=== PATIENT | male | born 1965 | race Caucasian/White ===

== ENCOUNTER 2017-11-06 20:26 | Observation (INO) | payer MEDICARE, SELFPAY ==
[2017-11-06] VITALS (7 sets, daily range): BP systolic 83–114; BP diastolic 51–94; PULSE 84–108; RESP 14–18; TEMP 36.6–36.7; O2SAT 93–98; BMI 31.6; BMI 31.1; BMI 31.2
--- NOTE | 2017-11-06 20:31 | EKG12_ITS ---
Test Reason : CP Blood Pressure : / mmHG Vent. Rate : 083 BPM Atrial Rate : 083 BPM P-R Int : 168 ms QRS Dur : 092 ms QT Int : 388 ms P-R-T Axes : 054 115 090 degrees QTc Int : 455 ms Normal sinus rhythm Normal ECG When compared with ECG of 09-AUG-2017 05:41, No significant change was found Confirmed by MAXINE LAWSON ([id number]), photograph editor WILLEM IGNACIO ([id number]) on 11/11/2017 3:03:57 PM Referred By: MICHI Confirmed By:MAXINE LAWSON
--- NOTE | 2017-11-06 20:33 | RAD_ITS ---
STUDY: X-RAY CHEST REASON FOR EXAM: Male, 52 years old. Chest pain and shortness of breath. TECHNIQUE: Single AP portable view of the chest. COMPARISON: August 07, 2017. FINDINGS: Cardiac monitoring leads are present. The lungs are expanded. There is mild interstitial thickening present in both lungs. There is no demonstrated pleural abnormality. Normal size heart. Normal mediastinum and sang. There is prominence of the pulmonary hilar arteries without peripheral pulmonary vascular congestion. There is atherosclerotic calcification of the aortic arch with tortuosity. There are diffuse degenerative changes of the visualized thoracic spine. Normal visualized ribs, clavicles, and shoulders. There is no demonstrated abnormality of the visualized soft tissue structures of the upper abdomen. RAD/Chest 1 View (Portable) IMPRESSION: No radiographic evidence of acute cardiopulmonary disease. Electronically Signed: Jessica Cosme MD at 21:04 EDT , Service support ,
[2017-11-06 20:39] LABS: Absolute Lymphocyte Count 1.96 X10^3/ul (0.83-4.51); Absolute Neutrophil Count 5.1 X10^3/uL (2.0-7.7); Basophil# 0.04 X10^3/uL; Basophil% 0.5 % (0-1); Eosinophil# 0.12 X10^3/uL; Eosinophils% 1.5 % (0-5); Hematocrit 45.8 % (40-54); Hemoglobin 16.5 g/dl (13.0-16.5); Lymphocyte # 1.96 X10^3/ul (4.0); Lymphocyte % 24.8 % (19-41); Mean Corpuscular Volume 86.1 fL (80-94); Mean Platelet Vol. 11.6 fl (6.2-12.0); Monocyte% 8.9 % (0-10); Neutrophil # 5.07 X10^3/uL (2.7-7.7); Neutrophil % 64.2 % (47-70); Platelet Count 179 K/mm3 (150-450); RBC Distribution Width CV 13.1 % (11.6-14.6); RBC Distribution Width SD 40.8 fl (35.1-43.9); Red Blood Count 5.32 M/mm3 (4.6-6.2); White Blood Count 7.9 K/mm3 (4.4-11.0)
[2017-11-06 20:40] LABS: POSITIVE COUNT NO; POSITIVE DIFFERENTIAL NO; POSITIVE MORPHOLOGY NO
--- NOTE | 2017-11-06 21:05 | ED.RN ---
DR AQUINO NOTIFIED OF CRITICAL GLUCOSE [id number]
[2017-11-06 21:06] LABS: Anion Gap 14 (5-15); BUN 12 mg/dL (7-18); BUN/Creat Ratio 8.5 RATIO (10-20); Calcium,Total 8.5 mg/dL (8.5-10.1); Chloride 98 mmol/L (98-107); Creatinine, Serum 1.42 mg/dL (0.70-1.30); EST Glomerular Filtration Rate 56 mL/min (>60); Est Glom Filt Rate - Afr Amer 67 mL/min (>60); Estimated Creatinine Clearance 66.79 ml/min; Glucose 510 mg/dL (74-106); Potassium 3.7 mmol/L (3.5-5.1); Sodium Level 133 mmol/L (136-145)
[2017-11-06] MEDS: Aspirin 81 MG TAB.CHEW 324 MG PO (21:10)
[2017-11-06] MEDS: Ondansetron 4 MG/2 ML Vial IV (21:10)
[2017-11-06 21:18] LABS: D-Dimer Quantitative (DVT/PE) 0.43 FEU/ug/m (0.27-0.49)
[2017-11-06] MEDS: 0.9% Normal Saline 1,000 ML 999 ML IV (22:20)
--- NOTE | 2017-11-06 22:23 | ED.DCSUM_ITS ---
- ER Visit Summary Date of Service: 11/06/17 Chief Complaint: Chest pain History of Present Illness: The patient is a 52 M presenting with chest pain. He states this started yesterday. He has intermittent episodes of midsternal chest pain with no radiation. He states it was worse when he walked up a hill today. He has nausea vomiting and diarrhea as well. He complains of shortness of breath. He has had a cough. He has had subjective fever. He has a history of hypertension, diabetes, hypercholesteremia, early history of family heart disease, previous smoker. He has 7 stents. He denies PE/DVT risk factors. Physical Examination: Vitals are stable. Patient is afebrile. Alert no acute distress. HEENT exam is unremarkable. Neck is supple. Lungs are clear and equal bilaterally. Heart is regular rate and rhythm. Abdomen is soft nontender nondistended. Extremities are unremarkable. Skin is warm and dry. No focal neurologic deficit. Remainder of exam is unremarkable. Emergency Department Course and Treatment: Patient was given aspirin, morphine on arrival. EKG is sinus tachycardia rate of 105. CBC is normal. Chemistries show sodium 133, creatinine 1.42, glucose 516. He is given IV fluids and insulin subcu. Troponin was negative. D-dimer is normal. Rapid flu was sent and is pending. Chest x-ray shows no acute process. Due to his chest pain which feels typical of his heart pain, discussed with the hospitalist for observation. Disposition: Observation Impression: Chest pain This note was generated with [employer] dictation software. It may contain incorrect words, spelling, and punctuation that were not noted in review of the chart prior to signing ED Disposition - Plan for ED Patient: Chief Complaint: Chest Pain Referrals: Trang He MD [Primary Care Provider] -
--- NOTE | 2017-11-06 22:37 | PCM.HP.STD ---
Problem List (1) Obesity (BMI 30.0-34.9) Status: Chronic (2) Myocardial infarct, old Status: Chronic (3) S/P PTCA (percutaneous transluminal coronary angioplasty) Status: Chronic (4) Chest pain Status: Acute Qualifiers: Chest pain type: unspecified Qualified Code(s): R07.9 - Chest pain, unspecified (5) CAD (coronary artery disease) Status: Chronic Qualifiers: Coronary Disease-Associated Artery/Lesion type: unspecified vessel or lesion type [place] vs. 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 insulin use: without long lines operator use Diabetes mellitus complication status: with unspecified complications Qualified Code(s): E11.8 - Type 2 diabetes mellitus with unspecified complications (8) HLD (hyperlipidemia) Status: Chronic Qualifiers: Hyperlipidemia type: unspecified (9) HTN (hypertension) Status: Chronic Qualifiers: Hypertension type: essential hypertension History of Present Illness Date of Admission: 11/06/17 Chief Complaint: N/V/D, CP The patient is a 52 y/o M w/ PMHx: Obesity, CAD s/p [place] w/ PCI, Tobacco use, Diabetes mellitus type II, HTN, HLD who presents to the [facility] ED on 11/06/17 with history of ongoing nausea, emesis, loose stools x 24 hours, mildly productive cough (although ongoing for several months) with subjective fever and chills and now onset substernal chest pressure with associated R hand discomfort intermittently over the last 24 hours with associated dyspnea without diaphoresis, noted to worsen with increased activity, specifically while walking up the hill to the ED. He does admit to non-compliance with his diet and since recent illness has been drinking normal gatorade. He notes usually drinking regular sweet tea. In the ED work-up included T 97.9, HR 107-->90, BP 96/51-->100/66, RR 14, 98% on RA, unremarkable CBC, d-dimer 0.43, BMP w/ Na 133, BUN/Cr 12/1.42 (baseline 0.7), glucose 510, trop < 0.02. Past Medical History Past Medical History (Chronic Problems): Chronic Problems Obesity (BMI 30.0-34.9) (Chronic) Myocardial infarct, old (Chronic) S/P PTCA (percutaneous transluminal coronary angioplasty) (Chronic) S/P PTCA (percutaneous transluminal coronary angioplasty) (Chronic) CAD (coronary artery disease) (Chronic) Tobacco abuse (Chronic) CAD (coronary artery disease) (Chronic) Diabetes (Chronic) HLD (hyperlipidemia) (Chronic) HTN (hypertension) (Chronic) Allergies No Known Allergies Allergy (Verified 11/06/17 20:28) Home Medications: Ambulatory Orders Medication Instructions Recorded Aspirin [Aspirin, Baby] 81 mg PO DAILY 06/11/16 Atorvastatin Calcium [Lipitor] 80 mg PO QHS 06/11/16 Clopidogrel Bisulfate [Plavix] 75 mg PO DAILY 06/11/16 Lisinopril [Zestril] 10 mg PO DAILY 06/11/16 Metformin HCl [Metformin HCl ER] 500 mg PO BID 06/11/16 Nitroglycerin 0.4 mg SL PRN PRN 07/04/16 Bupropion HCl [Bupropion Xl] 300 mg PO DAILY 11/09/16 Carvedilol [Coreg (Beta Leon)] 6.25 mg PO BID 02/08/17 Pantoprazole Sodium [Protonix] 40 mg PO DAILY 03/18/17 Surgical History: angioplasty, - - LUE surgery, PCI, T+A. Psychiatric History: No pertinent psych hx Lives: Alone Smoking Status: Former smoker - Quit 05/20/17, 30 year history at least prior. Tobacco Use: Non-smoker Alcohol: None Drugs: None - *Family History Maternal History Items: Diabetes, - Paternal History Items: Diabetes, High Cholesterol, Heart Disease - CAD s/p [place] in his 50s., Hypertension, - - diabetes, heart disease Sibling History Items: Heart Disease - Brother w/ CAD/LA in his 50s, fatal. Review of Systems Constitutional: Reports: Anorexia, Chills, Fever, Malaise, Weakness, Fatigue. Denies: Weight Change HEENT: Denies: Head Aches, Sinus Congestion, Sinus Drainage Cardiovascular: Reports: Chest Pain, Chest Pressure. Denies: Palpitations Respiratory: Reports: Cough, Shortness of Breath, Shortness of breath upon exertion, Sputum production. Denies: Shortness of breath at rest Gastrointestinal: Reports: Diarrhea, Nausea, Vomiting. Denies: Abdominal Pain Genitourinary: Denies: Dysuria Musculoskeletal: Denies: Joint Pain, Joint Tenderness Skin: Denies: Rash, Wounds Neurological: Denies: Numbness, Tingling, Focal weakness Psychiatric: Denies: Anxiety, Depression, Homicidal Ideations, Suicidal Ideations Hematologic/ Lymphatic: Denies: Easy Bruising, Easy Bleeding VTE Information - Inpt Only VTE Present on Admission: No VTE Mechan Device Prophylaxis: SCD's VTE Pharm Prophylaxis ordered?: Yes Subjective: Seated upright in the ED bed, fatigued appearance, BP currently SBP 88. Objective: Physical Examination: General: awake, alert, oriented x 3 and cooperative, seated upright in the ED bed, notes still some discomfort, asking for pain regimen. Skin: normal color, turgor, no icterus, cyanosis, BL LE dry, suspect chronic venous stasis. HEENT: AT/NC, EOMI, PERRLA, dry MM, no carotid bruits or JVD noted. Lungs: CTA bilaterally, moderate effort, moderate decrease BL bases, no rales, ronchi or wheezing. Heart: Regular rate and rhythm; no gallop, rub audible, reproducible chest discomfort w/ palpation. Abdomen: soft, obese, NTTP, ND, normal BS, no HSM. Extremities: no cyanosis, clubbing, BL LE dry, suspect chronic venous stasis. Neurological: patient awake, alert, oriented x 3; cognitive function intact; pupils equally reactive to light and accomodation; cranial nerves II-XII grossly normal, moving all 4 extremities, no focal deficits, strength moderately globally decreased. Psychiatric: affect appears fatigued, no acute evidence of depressive or anxiety feelings. - Physical Exam Vital Signs Temp Pulse Resp BP Pulse Ox 97.9 F 108 H 14 114/94 H 97 11/06/17 20:29 11/06/17 20:29 11/06/17 20:29 11/06/17 20:29 11/06/17 20:35 Oxygen Flow Rate (L/min) 2 Oxygen Delivery Method Nasal Cannula Weight: 233 lb 0.458 oz Body Mass Index (BMI) 31.6 Laboratory Tests Past 24 Hrs 11/06/17 11/06/17 11/06/17 20:30 20:30 20:30 WBC 7.9 RBC 5.32 Hgb 16.5 Hct 45.8 MCV 86.1 MCH 31.0 MCHC 36.0 RDW 13.1 RDW Differential 40.8 Plt Count 179 MPV 11.6 Immature Gran % (Auto) 0.100 Neut % (Auto) 64.2 Lymph % (Auto) 24.8 [place] % (Auto) 8.9 Eos % (Auto) 1.5 Baso % (Auto) 0.5 Absolute Neuts (auto) 5.1 Absolute Lymphs (auto) 1.96 Total Counted Not Reportable D-Dimer Quant (PE/DVT) 0.43 Sodium 133 L Potassium 3.7 Chloride 98 Carbon Dioxide 21.0 Anion Gap 14 BUN 12 Creatinine 1.42 H Estim Creat Clear Calc 66.79 Est GFR (MDRD) Af Amer 67 Est GFR (MDRD) Non-Af 56 L BUN/Creatinine Ratio 8.5 L Glucose 510 H* Calcium 8.5 Troponin I < 0.02 Assessment/Plan The patient is a 52 y/o M w/ PMHx: Obesity, CAD s/p [place] w/ PCI, Tobacco use, Diabetes mellitus type II, HTN, HLD who presents to the [facility] ED on 11/06/17 with history of ongoing nausea, emesis, loose stools x 24 hours, mildly productive cough (although ongoing for several months) with subjective fever and chills and now onset substernal chest pressure with associated R hand discomfort intermittently over the last 24 hours with associated dyspnea without diaphoresis, noted to worsen with increased activity, specifically while walking up the hill to the ED. (1) N/V/D, ? Viral Gastroenteritis: Will admit to PCU given concurrent chest pain, continue aggressive hydration especially given hypotension, will obtain c diff, stool cx with repeat AM CBC. Will not start antibiotics at this time given unclear source pending stool studies as may be viral gastroenteritis. Anti-emetics, pain regimen PRN. Clears with ADAT. Respiratory viral panel pending. (2) Chest Pain, Atypical: EKG in ED ST without acute findings, CXR w/ without acute process, initial trop normal. Will place on a monitored bed to assure no acute myocardial infarction with serial cardiac enzymes and EKGs. Recent stress testing 07/2017 unremarkable. Possible related to recent #1, pending re-assessment in AM may consider Cardiology evaluation, atypical and reproducible discomfort w/ chest palpation. ASA, NG, morphine. FLP in AM. Mag pending. (3) Acute kidney injury: Secondary to GI losses, #1. Admission BUN/Cr 12/1.42 although BUN not markedly elevated, prior baseline creatinine noted to be 0.7. Will hydrate, hold nephrotoxic medications and repeat chemistry in AM. If no improvement would plan FeNa and renal US assessment. (4) Diabetes mellitus type II, Uncontrolled: Elevated glucose upon presentation, 510, noted poor diet compliance. Hold oral home regimen, HgBA1c pending, clears and ADAT to ADA diet, accu checks w/ ISS. Nutrition consulted, pending. (5) CAD: s/p PCI, [place], following w/ Dr. Johnson. Will continue home regimen asa, plavix statin, BB with hold parameters. (6) Hypertension: BP low in the ED, ÁLVARO as noted, holding ACEI, continue BB as able to with BP parameters, PRN hydralazine. (7) Hyperlipidemia: Continue home statin regimen. AM FLP. (8) Obesity: Weight loss and lifestyle changes encouraged. (9) Former Tobacco use, ? COPD: Notes vague dyspnea complaints ongoing, chronic cough ongoing, will add PRN albuterol, ATC duonebs, encouraged continued tobacco cessation. (10) GERD: Famotidine. (11) DVT Prophylaxis: SCDs, heparin. Code Visit OBSV E&M: [id number] Initial observation care L3
--- NOTE | 2017-11-06 22:53 | HP.PCM_ITS ---
Problem List (1) Obesity (BMI 30.0-34.9) Status: Chronic (2) Myocardial infarct, old Status: Chronic (3) S/P PTCA (percutaneous transluminal coronary angioplasty) Status: Chronic (4) Chest pain Status: Acute Qualifiers: Chest pain type: unspecified Qualified Code(s): R07.9 - Chest pain, unspecified (5) CAD (coronary artery disease) Status: Chronic Qualifiers: Coronary Disease-Associated Artery/Lesion type: unspecified vessel or lesion type [place] vs. 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: without marine oil terminal superintendent use Diabetes mellitus complication status: with unspecified complications Qualified Code(s): E11.8 - Type 2 diabetes mellitus with unspecified complications (8) HLD (hyperlipidemia) Status: Chronic Qualifiers: Hyperlipidemia type: unspecified (9) HTN (hypertension) Status: Chronic Qualifiers: Hypertension type: essential hypertension History of Present Illness Date of Admission: 11/06/17 Chief Complaint: N/V/D, CP The patient is a 52 y/o M w/ PMHx: Obesity, CAD s/p [place] w/ PCI, Tobacco use, Diabetes mellitus type II, HTN, HLD who presents to the [facility] ED on 11/06/17 with history of ongoing nausea, emesis, loose stools x 24 hours, mildly productive cough (although ongoing for several months) with subjective fever and chills and now onset substernal chest pressure with associated R hand discomfort intermittently over the last 24 hours with associated dyspnea without diaphoresis, noted to worsen with increased activity, specifically while walking up the hill to the ED. He does admit to non-compliance with his diet and since recent illness has been drinking normal gatorade. He notes usually drinking regular sweet tea. In the ED work-up included T 97.9, HR 107-->90, BP 96/51-->100/66, RR 14, 98% on RA, unremarkable CBC, d-dimer 0.43, BMP w/ Na 133 , BUN/Cr 12/1.42 (baseline 0.7), glucose 510, trop < 0.02. Past Medical History Past Medical History (Chronic Problems): Chronic Problems Obesity (BMI 30.0-34.9) (Chronic) Myocardial infarct, old (Chronic) S/P PTCA (percutaneous transluminal coronary angioplasty) (Chronic) S/P PTCA (percutaneous transluminal coronary angioplasty) (Chronic) CAD (coronary artery disease) (Chronic) Tobacco abuse (Chronic) CAD (coronary artery disease) (Chronic) Diabetes (Chronic) HLD (hyperlipidemia) (Chronic) HTN (hypertension) (Chronic) Allergies No Known Allergies Allergy (Verified 11/06/17 20:28) Home Medications: Ambulatory Orders Medication Instructions Recorded Aspirin [Aspirin, Baby] 81 mg PO DAILY 06/11/16 Atorvastatin Calcium [Lipitor] 80 mg PO QHS 06/11/16 Clopidogrel Bisulfate [Plavix] 75 mg PO DAILY 06/11/16 Lisinopril [Zestril] 10 mg PO DAILY 06/11/16 Metformin HCl [Metformin HCl ER] 500 mg PO BID 06/11/16 Nitroglycerin 0.4 mg SL PRN PRN 07/04/16 Bupropion HCl [Bupropion Xl] 300 mg PO DAILY 11/09/16 Carvedilol [Coreg (Beta Leon)] 6.25 mg PO BID 02/08/17 Pantoprazole Sodium [Protonix] 40 mg PO DAILY 03/18/17 Surgical History: angioplasty, - - LUE surgery, PCI, T+A. Psychiatric History: No pertinent psych hx Lives: Alone Smoking Status: Former smoker - Quit 05/20/17, 30 year history at least prior. Tobacco Use: Non-smoker Alcohol: None Drugs: None - *Family History Maternal History Items: Diabetes, - Paternal History Items: Diabetes, High Cholesterol, Heart Disease - CAD s/p [place] in his 50s., Hypertension, - - diabetes, heart disease Sibling History Items: Heart Disease - Brother w/ CAD/[place] in his 50s, fatal. Review of Systems Constitutional: Reports: Anorexia, Chills, Fever, Malaise, Weakness, Fatigue. Denies: Weight Change HEENT: Denies: Head Aches, Sinus Congestion, Sinus Drainage Cardiovascular: Reports: Chest Pain, Chest Pressure. Denies: Palpitations Respiratory: Reports: Cough, Shortness of Breath, Shortness of breath upon exertion, Sputum production. Denies: Shortness of breath at rest Gastrointestinal: Reports: Diarrhea, Nausea, Vomiting. Denies: Abdominal Pain Genitourinary: Denies: Dysuria Musculoskeletal: Denies: Joint Pain, Joint Tenderness Skin: Denies: Rash, Wounds Neurological: Denies: Numbness, Tingling, Focal weakness Psychiatric: Denies: Anxiety, Depression, Homicidal Ideations, Suicidal Ideations Hematologic/ Lymphatic: Denies: Easy Bruising, Easy Bleeding VTE Information - Inpt Only VTE Present on Admission: No VTE Mechan Device Prophylaxis: SCD's VTE Pharm Prophylaxis ordered?: Yes Subjective: Seated upright in the ED bed, fatigued appearance, BP currently SBP 88. Objective: Physical Examination: General: awake, alert, oriented x 3 and cooperative, seated upright in the ED bed, notes still some discomfort, asking for pain regimen. Skin: normal color, turgor, no icterus, cyanosis, BL LE dry, suspect chronic venous stasis. HEENT: AT/NC, EOMI, PERRLA, dry MM, no carotid bruits or JVD noted. Lungs: CTA bilaterally, moderate effort, moderate decrease BL bases, no rales, ronchi or wheezing. Heart: Regular rate and rhythm; no gallop, rub audible, reproducible chest discomfort w/ palpation. Abdomen: soft, obese, NTTP, ND, normal BS, no HSM. Extremities: no cyanosis, clubbing, BL LE dry, suspect chronic venous stasis. Neurological: patient awake, alert, oriented x 3; cognitive function intact; pupils equally reactive to light and accomodation; cranial nerves II-XII grossly normal, moving all 4 extremities, no focal deficits, strength moderately globally decreased. Psychiatric: affect appears fatigued, no acute evidence of depressive or anxiety feelings. - Physical Exam Vital Signs Temp Pulse Resp BP Pulse Ox 97.9 F 108 H 14 114/94 H 97 11/06/17 20:29 11/06/17 20:29 11/06/17 20:29 11/06/17 20:29 11/06/17 20:35 Oxygen Flow Rate (L/min) 2 Oxygen Delivery Method Nasal Cannula Weight: 233 lb 0.458 oz Body Mass Index (BMI) 31.6 Laboratory Tests Past 24 Hrs 11/06/17 11/06/17 11/06/17 20:30 20:30 20:30 WBC 7.9 RBC 5.32 Hgb 16.5 Hct 45.8 MCV 86.1 MCH 31.0 MCHC 36.0 RDW 13.1 RDW Differential 40.8 Plt Count 179 MPV 11.6 Immature Gran % (Auto) 0.100 Neut % (Auto) 64.2 Lymph % (Auto) 24.8 [place] % (Auto) 8.9 Eos % (Auto) 1.5 Baso % (Auto) 0.5 Absolute Neuts (auto) 5.1 Absolute Lymphs (auto) 1.96 Total Counted Not Reportable D-Dimer Quant (PE/DVT) 0.43 Sodium 133 L Potassium 3.7 Chloride 98 Carbon Dioxide 21.0 Anion Gap 14 BUN 12 Creatinine 1.42 H Estim Creat Clear Calc 66.79 Est GFR (MDRD) Af Amer 67 Est GFR (MDRD) Non-Af 56 L BUN/Creatinine Ratio 8.5 L Glucose 510 H* Calcium 8.5 Troponin I < 0.02 Assessment/Plan The patient is a 52 y/o M w/ PMHx: Obesity, CAD s/p [place] w/ PCI, Tobacco use, Diabetes mellitus type II, HTN, HLD who presents to the [facility] ED on 11/06/17 with history of ongoing nausea, emesis, loose stools x 24 hours, mildly productive cough (although ongoing for several months) with subjective fever and chills and now onset substernal chest pressure with associated R hand discomfort intermittently over the last 24 hours with associated dyspnea without diaphoresis, noted to worsen with increased activity, specifically while walking up the hill to the ED. (1) N/V/D, ? Viral Gastroenteritis: Will admit to PCU given concurrent chest pain, continue aggressive hydration especially given hypotension, will obtain c diff, stool cx with repeat AM CBC. Will not start antibiotics at this time given unclear source pending stool studies as may be viral gastroenteritis. Anti -emetics, pain regimen PRN. Clears with ADAT. Respiratory viral panel pending. (2) Chest Pain, Atypical: EKG in ED ST without acute findings, CXR w/ without acute process, initial trop normal. Will place on a monitored bed to assure no acute myocardial infarction with serial cardiac enzymes and EKGs. Recent stress testing 07/2017 unremarkable. Possible related to recent #1, pending re- assessment in AM may consider Cardiology evaluation, atypical and reproducible discomfort w/ chest palpation. ASA, NG, morphine. FLP in AM. Mag pending. (3) Acute kidney injury: Secondary to GI losses, #1. Admission BUN/Cr 12/1.42 although BUN not markedly elevated, prior baseline creatinine noted to be 0.7. Will hydrate, hold nephrotoxic medications and repeat chemistry in AM. If no improvement would plan FeNa and renal US assessment. (4) Diabetes mellitus type II, Uncontrolled: Elevated glucose upon presentation , 510, noted poor diet compliance. Hold oral home regimen, HgBA1c pending, clears and ADAT to ADA diet, accu checks w/ ISS. Nutrition consulted, pending. (5) CAD: s/p PCI, [place], following w/ Dr. Johnson. Will continue home regimen asa, plavix statin, BB with hold parameters. (6) Hypertension: BP low in the ED, ÁLVARO as noted, holding ACEI, continue BB as able to with BP parameters, PRN hydralazine. (7) Hyperlipidemia: Continue home statin regimen. AM FLP. (8) Obesity: Weight loss and lifestyle changes encouraged. (9) Former Tobacco use, ? COPD: Notes vague dyspnea complaints ongoing, chronic cough ongoing, will add PRN albuterol, ATC duonebs, encouraged continued tobacco cessation. (10) GERD: Famotidine. (11) DVT Prophylaxis: SCDs, heparin. Code Visit OBSV E&M: [id number] Initial observation care L3
[2017-11-07] VITALS (13 sets, daily range): BP systolic 92–154; BP diastolic 51–92; PULSE 75–92; RESP 16–18; TEMP 36.6–36.9; O2SAT 94–97
[2017-11-07 00:03] LABS: Magnesium 1.8 mg/dL (1.6-2.6); Phosphorus 3.8 mg/dL (2.5-4.9)
[2017-11-07] MEDS: HYDROcodone Bitartrate/Apap 5/325 Tablet PO ×3 (00:29→17:20)
[2017-11-07] MEDS: 0.9% Normal Saline 1,000 ML 999 ML IV ×2 (00:29→05:15)
[2017-11-07 00:30] LABS: Hemoglobin A1c 12.4 % (4.2-6.3)
[2017-11-07] MEDS: guaiFENesin 1,200 MG Tablet 1200 MG PO ×2 (01:08→22:50)
--- NOTE | 2017-11-07 01:16 | EKG12_ITS ---
Test Reason : Blood Pressure : / mmHG Vent. Rate : 105 BPM Atrial Rate : 105 BPM P-R Int : 154 ms QRS Dur : 086 ms QT Int : 360 ms P-R-T Axes : 067 116 081 degrees QTc Int : 475 ms Sinus tachycardia Otherwise normal ECG Confirmed by EDUARDO GIBSON, DEVYN ([id number]), photography editor WILLEM IGNACIO ([id number]) on 11/09/2017 3:09:25 PM Referred By: MITCHELL Confirmed By:DEVYN CLARK MD
[2017-11-07] MEDS: 0.9% Normal Saline 1,000 ML 125 ML IV (01:24)
[2017-11-07 05:30] LABS: Hematocrit 39.3 % (40-54); Hemoglobin 13.7 g/dl (13.0-16.5); Mean Corp Hgb Conc 34.9 g/gl (32-36); Mean Corpuscular Hgb 30.4 pg (27.0-32.0); Mean Corpuscular Volume 87.3 fL (80-94); Mean Platelet Vol. 11.5 fl (6.2-12.0); Platelet Count 143 K/mm3 (150-450); RBC Distribution Width CV 13.1 % (11.6-14.6); RBC Distribution Width SD 40.7 fl (35.1-43.9); White Blood Count 5.4 K/mm3 (4.4-11.0)
[2017-11-07 05:33] LABS: Scan Indicated on CBC? Y/N NO
[2017-11-07 05:42] LABS: Anion Gap 8 (5-15); BUN 13 mg/dL (7-18); Calcium,Total 7.3 mg/dL (8.5-10.1); Chloride 105 mmol/L (98-107); Cholesterol 211 mg/dL (200); Creatinine, Serum 0.68 mg/dL (0.70-1.30); EST Glomerular Filtration Rate 129 mL/min (>60); Est Glom Filt Rate - Afr Amer 156 mL/min (>60); Estimated Creatinine Clearance 139.48 ml/min; Glucose 226 mg/dL (74-106); High Density Lipoprotein 25 mg/dL; Potassium 3.2 mmol/L (3.5-5.1); Sodium Level 137 mmol/L (136-145); Triglycerides 901 mg/dL
--- NOTE | 2017-11-07 05:55 | EKG12_ITS ---
Test Reason : AM EKG Blood Pressure : / mmHG Vent. Rate : 078 BPM Atrial Rate : 078 BPM P-R Int : 174 ms QRS Dur : 096 ms QT Int : 406 ms P-R-T Axes : 049 096 086 degrees QTc Int : 462 ms Normal sinus rhythm Low voltage QRS Borderline ECG When compared with ECG of 06-NOV-2017 23:47, MANUAL COMPARISON REQUIRED, DATA IS UNCONFIRMED Confirmed by MAXINE LAWSON ([id number]), newspaper editor WILLEM IGNACIO ([id number]) on 11/11/2017 3:07:04 PM Referred By: MICHI Confirmed By:MAXINE LAWSON
[2017-11-07 07:01] LABS: Bedside Glucose 237 mg/dL (70-110)
[2017-11-07] MEDS: Ipratropium/Albuterol Sulfate 3 ML AMPUL.NEB INHALATION ×2 (07:28→14:01)
[2017-11-07 07:55] LABS: Lipase 118 U/L (73-393)
[2017-11-07] MEDS: Aspirin 81 MG TAB.CHEW PO (08:37)
[2017-11-07] MEDS: Famotidine 20 MG Tablet PO ×2 (09:37→22:50)
[2017-11-07] MEDS: Pantoprazole Sodium 40 MG Tablet PO (09:37)
[2017-11-07] MEDS: Carvedilol 6.25 MG Tablet PO ×2 (09:37→22:50)
[2017-11-07] MEDS: buPROPion (XL) 300 MG TABLET.XL PO (09:37)
[2017-11-07] MEDS: Clopidogrel Bisulfate 75 MG Tablet PO (09:37)
--- NOTE | 2017-11-07 11:32 | PCM.PROGNOTE ---
Subjective: Patient seen and examined. Denies further chest pain. Denies further fever, chills. Continues to complain of shortness of breath, increased with exertion. Denies further nausea, vomiting, diarrhea. Denies other complaints. - Physical Exam General: Alert, Oriented x3, Cooperative, No apparent distress HEENT: Atraumatic, PERRLA, EOMI, Normocephalic Neck: Supple, No JVD, Negative Carotid Bruits Lungs: Clear to auscultation, Diminished Cardiovascular: Regular rate, Regular Rhythm, Normal S1, Normal S2, No murmurs Abdomen: Bowel Sounds Present, Soft, Non Tender, Non-Distended Extremities: No clubbing, No cyanosis, No edema, Capillary Refill Less than 3 Seconds Skin: No rashes, No breakdown Musculoskeletal: No Tenderness to Palpation of Joints or Extremities Neurological: Cranial nerves II-XII grossly intact, Neuro grossly intact Psych/Mental Status: Normal Affect, Appropriate Vital Signs Temp Pulse Resp BP Pulse Ox 98.4 F 83 16 128/92 H 96 11/07/17 09:35 11/07/17 09:35 11/07/17 09:35 11/07/17 09:35 11/07/17 09:35 Oxygen Flow Rate (L/min) 2 Oxygen Delivery Method Room Air Weight: 104.3 kg Body Mass Index (BMI) 31.1 Intake and Output for Last 24 Hours 11/05/17 11/06/17 11/07/17 23:59 23:59 23:59 Intake Total 2908 / 2908 Balance 2908 / 2908 Laboratory Tests Past 24 Hrs 11/07/17 11/07/17 11/07/17 00:33 04:55 04:55 WBC 5.4 RBC 4.50 L Hgb 13.7 Hct 39.3 L MCV 87.3 MCH 30.4 MCHC 34.9 RDW 13.1 RDW Differential 40.7 Plt Count 143 L MPV 11.5 Sodium 137 Potassium 3.2 L Chloride 105 Carbon Dioxide 24.0 Anion Gap 8 BUN 13 Creatinine 0.68 L Estim Creat Clear Calc 139.48 Est GFR (MDRD) Af Amer 156 Est GFR (MDRD) Non-Af 129 BUN/Creatinine Ratio 19.0 Glucose 226 H Calcium 7.3 L Troponin I < 0.02 Triglycerides 901 H Cholesterol 211 H LDL Cholesterol TNP VLDL Cholesterol TNP HDL Cholesterol 25 L Lipase 11/07/17 11/07/17 11/07/17 04:55 04:55 10:47 WBC RBC Hgb Hct MCV MCH MCHC RDW RDW Differential Plt Count MPV Sodium Potassium Chloride Carbon Dioxide Anion Gap BUN Creatinine Estim Creat Clear Calc Est GFR (MDRD) Af Amer Est GFR (MDRD) Non-Af BUN/Creatinine Ratio Glucose Calcium Troponin I < 0.02 < 0.02 Triglycerides Cholesterol LDL Cholesterol VLDL Cholesterol HDL Cholesterol Lipase 118 POC Glucose 11/07/17 06:53 POC Glucose 237 H Medical Necessity - Tobacco Use Smoking Status: Former smoker Tobacco Use: Non-smoker Assessment/Plan Patient is a 52-year-old male admitted 11/06/2017 due to nausea, vomiting, diarrhea, chest pain. He has a past medical history of CAD status post NV with PCI, tobacco dependence, poorly controlled type 2 diabetes mellitus, obesity, hypertension, hyperlipidemia. 1. Atypical chest pain-patient denies further chest pain. Chest x-ray unremarkable. Troponin negative. EKG without evidence of ischemia. Patient will undergo stress test tomorrow morning. Continue aspirin, Plavix, statin, beta-carisa. 2. Suspected viral gastroenteritis-improved. Patient denies further nausea, vomiting, diarrhea. Respiratory panel negative. Patient has not had further bowel movement for stool sample. Continue Zofran as needed for nausea. IV fluids discontinued. 3. Acute kidney injury-secondary to #2. Creatinine on admission 1.4. Improved to 0.68 with IV fluids. Patient is tolerating oral intake. IV fluids discontinued. 4. Poorly controlled type 2 diabetes mellitus-hemoglobin A1c 12.5%. Hold home oral regimen. Nutrition consulted. Accu-Cheks before meals at bedtime with sliding scale insulin. Patient is currently on metformin 500 mg twice daily at home. Anticipate he will need insulin regimen going forward. 5. CAD status post NV with PCI-continue aspirin, Plavix, statin, beta-carisa. Stress test pending as noted above. 6. Hyperlipidemia-continue statin. Triglycerides 901, cholesterol 211, HDL 25. Patient is on high-dose statin, atorvastatin 80 mg daily. Patient may need additional agent. 7. Tobacco dependence/marijuana use-encourage cessation. 8. Hypertension-stable, continue home regimen. 9. Obesity-encourage dietary and lifestyle modifications. 10. GERD- continue famotidine. DVT prophylaxis-heparin subcu, SCDs. This patient was seen by LUCY Guzman under the supervision of Dr. Mims.
[2017-11-07 12:06] LABS: Bedside Glucose 287 mg/dL (70-110)
[2017-11-07 16:41] LABS: Bedside Glucose 254 mg/dL (70-110)
[2017-11-07 22:41] LABS: Bedside Glucose 209 mg/dL (70-110)
[2017-11-07] MEDS: Atorvastatin Calcium 80 MG Tablet PO (22:51)
[2017-11-08] VITALS (17 sets, daily range): BP systolic 133–174; BP diastolic 65–106; PULSE 65–96; RESP 14–16; TEMP 36.7–36.8; O2SAT 94–97
[2017-11-08] MEDS: HYDROcodone Bitartrate/Apap 5/325 Tablet PO ×2 (00:10→10:52)
[2017-11-08] MEDS: Aspirin 81 MG TAB.CHEW PO (05:20)
[2017-11-08] MEDS: Clopidogrel Bisulfate 75 MG Tablet PO (05:20)
[2017-11-08 05:31] LABS: Hematocrit 41.8 % (40-54); Hemoglobin 15.1 g/dl (13.0-16.5); International Normalized Ratio 0.9; Mean Corp Hgb Conc 36.1 g/gl (32-36); Mean Corpuscular Hgb 31.2 pg (27.0-32.0); Mean Corpuscular Volume 86.4 fL (80-94); Mean Platelet Vol. 11.3 fl (6.2-12.0); Platelet Count 130 K/mm3 (150-450); Prothrombin Time (Protime)PT. 12.6 SECONDS (11.7-14.9); RBC Distribution Width CV 13.1 % (11.6-14.6); RBC Distribution Width SD 40.5 fl (35.1-43.9); Red Blood Count 4.84 M/mm3 (4.6-6.2); Scan Indicated on CBC? Y/N NO; White Blood Count 4.8 K/mm3 (4.4-11.0)
[2017-11-08 05:32] LABS: Partial Thromboplast Time 26.1 Seconds (24.1-36.2)
[2017-11-08 05:46] LABS: Anion Gap 9 (5-15); BUN 7 mg/dL (7-18); BUN/Creat Ratio 11.6 RATIO (10-20); Calcium,Total 8.1 mg/dL (8.5-10.1); Chloride 104 mmol/L (98-107); EST Glomerular Filtration Rate 150 mL/min (>60); Est Glom Filt Rate - Afr Amer 181 mL/min (>60); Estimated Creatinine Clearance 158.07 ml/min; Glucose 225 mg/dL (74-106); Potassium 3.7 mmol/L (3.5-5.1); Sodium Level 138 mmol/L (136-145)
--- NOTE | 2017-11-08 05:55 | EKG12_ITS ---
Test Reason : AM EKG Blood Pressure : / mmHG Vent. Rate : 085 BPM Atrial Rate : 085 BPM P-R Int : 158 ms QRS Dur : 088 ms QT Int : 372 ms P-R-T Axes : 033 103 079 degrees QTc Int : 442 ms Normal sinus rhythm Normal ECG When compared with ECG of 07-NOV-2017 06:03, MANUAL COMPARISON REQUIRED, DATA IS UNCONFIRMED Confirmed by AMXINE LAWSON ([id number]), fashion editor WILLEM IGNACIO ([id number]) on 11/11/2017 3:08:35 PM Referred By: DR BARLOW Confirmed By:MAXINE LAWSON
[2017-11-08 07:00] LABS: Bedside Glucose 243 mg/dL (70-110)
--- NOTE | 2017-11-08 07:26 | PCM.CONS.C ---
Reason for Consult Date of Consultation: 11/08/17 Reason for Consultation: Chest pain and need for stress testing History of Present Illness: The patient is a 52 year old M with a previous history of coronary artery disease hyperlipidemia hypertension diabetes mellitus medication noncompliance and tobacco abuse. He presented to the emergency room complaining of nausea and emesis diarrhea shortness of breath and chest discomfort. This is his second admission in 2 months. He was admitted to the telemetry care unit has been doing better this morning denies any chest pain and was scheduled to have a stress test. Cardiology was asked to evaluate because of his repeat stress testing. He underwent stress testing in August 2016, October 2016, July 2017 all of which did not demonstrate any obstructive coronary disease. He had undergone in September 2016 and left heart catheterization which demonstrated an ejection fraction of 45%, left main coronary artery which was normal, LAD with 60% stenosis, second diagonal branch was small with 80% stenosis, the circumflex artery was a large nondominant with first obtuse marginal branch with 60% stenosis, and the second OM with an in-stent stenotic lesion of 95% stenosis. The right coronary artery was dominant with a proximal and distal stent reportedly widely open. There was a mid 60% stenosis. He underwent cutting balloon angioplasty of the circumflex artery OM 2 in-stent stenosis. He has had spotty follow-up with his steel loader Dr. Herbert Greco. At this time he denies any neck arm or jaw discomfort suggest angina. [] Past Medical History Allergies/Adverse Reactions: Allergies No Known Allergies Allergy (Verified 11/06/17 20:28) Home Medications: Ambulatory Orders Medication Instructions Recorded Aspirin [Aspirin, Baby] 81 mg PO DAILY 06/11/16 Atorvastatin Calcium [Lipitor] 80 mg PO QHS 06/11/16 Clopidogrel Bisulfate [Plavix] 75 mg PO DAILY 06/11/16 Lisinopril [Zestril] 10 mg PO DAILY 06/11/16 Metformin HCl [Metformin HCl ER] 500 mg PO BID 06/11/16 Nitroglycerin 0.4 mg SL PRN PRN 07/04/16 Bupropion HCl [Bupropion Xl] 300 mg PO DAILY 11/09/16 Carvedilol [Coreg (Beta Leon)] 6.25 mg PO BID 02/08/17 Pantoprazole Sodium [Protonix] 40 mg PO DAILY 03/18/17 Past Medical History (Chronic Problems): Chronic Problems Obesity (BMI 30.0-34.9) (Chronic) Myocardial infarct, old (Chronic) S/P PTCA (percutaneous transluminal coronary angioplasty) (Chronic) S/P PTCA (percutaneous transluminal coronary angioplasty) (Chronic) CAD (coronary artery disease) (Chronic) Tobacco abuse (Chronic) CAD (coronary artery disease) (Chronic) Diabetes (Chronic) HLD (hyperlipidemia) (Chronic) HTN (hypertension) (Chronic) Surgical History: angioplasty, - - LUE surgery, PCI, T+A. Psychiatric History: No pertinent psych hx - *Family History Sibling History Items: Heart Disease - Brother w/ CAD/ME in his 50s, fatal. Maternal History Items: Diabetes, - Paternal History Items: Diabetes, High Cholesterol, Heart Disease - CAD s/p ME in his 50s., Hypertension, - - diabetes, heart disease Lives: Alone Smoking Status: Former smoker Tobacco Use: Non-smoker Alcohol: None Drugs: None Review of Systems - Review of Systems General: Reports: Fatigue. Denies: Fever, Night Sweats Cardiovascular: Reports: Chest Discomfort. Denies: Shortness of Breath, Orthopnea, PND, Peripheral Edema, Palpitations, Lightheadedness, Dizziness, Near Syncope, Syncope Respiratory: Denies: Cough, Sputum Production, Hemoptysis Gastrointestinal: Reports: Nausea, Emesis, Diarrhea. Denies: Hematemesis, Hematochezia, Melena Genitourinary: Denies: Dysuria, Hematuria Skin: Denies: Rash Subjectve: Patient seen and evaluated. Objective: Vital Signs Temp Pulse Resp BP Pulse Ox 98.2 F 86 16 145/65 H 97 11/08/17 02:42 11/08/17 03:00 11/08/17 02:42 11/08/17 02:42 11/08/17 02:42 Oxygen Flow Rate (L/min) 2 Oxygen Delivery Method Room Air Weight: 229 lb 15.074 oz Body Mass Index (BMI) 31.1 Intake and Output for Last 24 Hours 11/06/17 11/07/17 11/08/17 23:59 23:59 23:59 Intake Total 4 / 5194 1892 Balance 5194 / 5194 1892 General: Awake, Alert, Oriented x 3 HEENT: PERRL, EOMI, Sclera Non Icteric Neck: Supple, Good ROM, No Lymph Node Enlargement Lungs: Clear to auscultation Cardiovascular: Regular Rhythm, Normal S1, Normal S2, No Murmurs, No Rubs, No Gallops Vascular: No Carotid Bruits, Normal Femoral Pulses, Normal Radial Pulses, Normal Dorsalis Pedal Pulse, Normal Posterior Tibial Pulses Abdomen: Bowel Sounds Present, Soft, Non Tender, No HSM, No Organomegaly Extremities: No Cyanosis, No Clubbing, No edema Neurological: No Focal Motor or Sensory Deficit 11/07/17 10:47: Troponin I < 0.02 11/08/17 05:05: Sodium 138, Potassium 3.7, Chloride 104, Carbon Dioxide 25.0, Anion Gap 9, BUN 7, Creatinine 0.60 L, Est GFR (MDRD) Af Amer 181, Est GFR (MDRD) Non-Af 150, BUN/Creatinine Ratio 11.6, Glucose 225 H, Calcium 8.1 L 11/08/17 05:05: WBC 4.8, RBC 4.84, Hgb 15.1, Hct 41.8, MCV 86.4, MCH 31.2, MCHC 36.1 H, RDW 13.1, RDW Differential 40.5, Plt Count 130 L, MPV 11.3 11/08/17 05:05: PT 12.6, INR 0.9, APTT 26.1 Rhythm: EKG: Normal sinus rhythm with no acute changes. Assessment/Plan 1. Chest pain. This gentleman presents with recurrent chest pain and has undergone repeated stress testing which have not demonstrated any evidence of ischemia. My recommendation at this time with his chest pain is that as it appears to be atypical I do not think that a fourth stress test in a year is warranted. I will therefore suggest that he either be treated with medical therapy or undergo a repeat cardiac catheterization. If no significant obstructive lesion is found or a lesion that can be intervened on then he can be discharged and follow-up as an outpatient. Addendum The catheterization today demonstrated the following: Left main coronary artery noted to be normal. Left anterior descending artery with mild luminal irregularities. First septal entry engineer with moderate disease in the small vessel. First bifurcating diagonal vessel which is small with moderately severe disease Codominant left circumflex artery with mid segment 50% stenosis. First obtuse marginal branch with no high-grade stenosis. Previously placed stent in the mid circumflex artery with no significant stenosis. Codominant right coronary artery with previously placed stent with mild in-stent stenosis Reduced ejection fraction of 45%. Based on the above angiographic findings the patient will be managed with medical therapy. We will attempt to put him on once a day medication to improve compliance. He can be discharged later today. 2. Hypertension He will continue with aggressive antihypertensive therapy with his medications adjusted as appropriate. 3.Hyperlipidemia He will continue with aggressive risk factor modification. It appears from previous notes that he has been less than appropriately compliant with his medical therapy. This needs to be emphasized to him about the importance of following up with a medical establishment appropriately.
--- NOTE | 2017-11-08 07:37 | CON.PCM_ITS ---
Reason for Consult Date of Consultation: 11/08/17 Reason for Consultation: Chest pain and need for stress testing History of Present Illness: The patient is a 52 year old M with a previous history of coronary artery disease hyperlipidemia hypertension diabetes mellitus medication noncompliance and tobacco abuse. He presented to the emergency room complaining of nausea and emesis diarrhea shortness of breath and chest discomfort. This is his second admission in 2 months. He was admitted to the telemetry care unit has been doing better this morning denies any chest pain and was scheduled to have a stress test. Cardiology was asked to evaluate because of his repeat stress testing. He underwent stress testing in August 2016, October 2016, July 2017 all of which did not demonstrate any obstructive coronary disease. He had undergone in September 2016 and left heart catheterization which demonstrated an ejection fraction of 45%, left main coronary artery which was normal, LAD with 60% stenosis, second diagonal branch was small with 80% stenosis, the circumflex artery was a large nondominant with first obtuse marginal branch with 60% stenosis, and the second OM with an in-stent stenotic lesion of 95% stenosis. The right coronary artery was dominant with a proximal and distal stent reportedly widely open. There was a mid 60% stenosis. He underwent cutting balloon angioplasty of the circumflex artery OM 2 in-stent stenosis. He has had spotty follow-up with his corporate real estate manager Dr. Herbert Greco. At this time he denies any neck arm or jaw discomfort suggest angina. [] Past Medical History Allergies/Adverse Reactions: Allergies No Known Allergies Allergy (Verified 11/06/17 20:28) Home Medications: Ambulatory Orders Medication Instructions Recorded Aspirin [Aspirin, Baby] 81 mg PO DAILY 06/11/16 Atorvastatin Calcium [Lipitor] 80 mg PO QHS 06/11/16 Clopidogrel Bisulfate [Plavix] 75 mg PO DAILY 06/11/16 Lisinopril [Zestril] 10 mg PO DAILY 06/11/16 Metformin HCl [Metformin HCl ER] 500 mg PO BID 06/11/16 Nitroglycerin 0.4 mg SL PRN PRN 07/04/16 Bupropion HCl [Bupropion Xl] 300 mg PO DAILY 11/09/16 Carvedilol [Coreg (Beta Leon)] 6.25 mg PO BID 02/08/17 Pantoprazole Sodium [Protonix] 40 mg PO DAILY 03/18/17 Past Medical History (Chronic Problems): Chronic Problems Obesity (BMI 30.0-34.9) (Chronic) Myocardial infarct, old (Chronic) S/P PTCA (percutaneous transluminal coronary angioplasty) (Chronic) S/P PTCA (percutaneous transluminal coronary angioplasty) (Chronic) CAD (coronary artery disease) (Chronic) Tobacco abuse (Chronic) CAD (coronary artery disease) (Chronic) Diabetes (Chronic) HLD (hyperlipidemia) (Chronic) HTN (hypertension) (Chronic) Surgical History: angioplasty, - - LUE surgery, PCI, T+A. Psychiatric History: No pertinent psych hx - *Family History Sibling History Items: Heart Disease - Brother w/ CAD/NV in his 50s, fatal. Maternal History Items: Diabetes, - Paternal History Items: Diabetes, High Cholesterol, Heart Disease - CAD s/p NV in his 50s., Hypertension, - - diabetes, heart disease Lives: Alone Smoking Status: Former smoker Tobacco Use: Non-smoker Alcohol: None Drugs: None Review of Systems - Review of Systems General: Reports: Fatigue. Denies: Fever, Night Sweats Cardiovascular: Reports: Chest Discomfort. Denies: Shortness of Breath, Orthopnea, PND, Peripheral Edema, Palpitations, Lightheadedness, Dizziness, Near Syncope, Syncope Respiratory: Denies: Cough, Sputum Production, Hemoptysis Gastrointestinal: Reports: Nausea, Emesis, Diarrhea. Denies: Hematemesis, Hematochezia, Melena Genitourinary: Denies: Dysuria, Hematuria Skin: Denies: Rash Subjectve: Patient seen and evaluated. Objective: Vital Signs Temp Pulse Resp BP Pulse Ox 98.2 F 86 16 145/65 H 97 11/08/17 02:42 11/08/17 03:00 11/08/17 02:42 11/08/17 02:42 11/08/17 02:42 Oxygen Flow Rate (L/min) 2 Oxygen Delivery Method Room Air Weight: 229 lb 15.074 oz Body Mass Index (BMI) 31.1 Intake and Output for Last 24 Hours 11/06/17 11/07/17 11/08/17 23:59 23:59 23:59 Intake Total 4 / 5194 1892 Balance 5194 / 5194 1892 General: Awake, Alert, Oriented x 3 HEENT: PERRL, EOMI, Sclera Non Icteric Neck: Supple, Good ROM, No Lymph Node Enlargement Lungs: Clear to auscultation Cardiovascular: Regular Rhythm, Normal S1, Normal S2, No Murmurs, No Rubs, No Gallops Vascular: No Carotid Bruits, Normal Femoral Pulses, Normal Radial Pulses, Normal Dorsalis Pedal Pulse, Normal Posterior Tibial Pulses Abdomen: Bowel Sounds Present, Soft, Non Tender, No HSM, No Organomegaly Extremities: No Cyanosis, No Clubbing, No edema Neurological: No Focal Motor or Sensory Deficit 11/07/17 10:47: Troponin I < 0.02 11/08/17 05:05: Sodium 138, Potassium 3.7, Chloride 104, Carbon Dioxide 25.0, Anion Gap 9, BUN 7, Creatinine 0.60 L, Est GFR (MDRD) Af Amer 181, Est GFR (MDRD ) Non-Af 150, BUN/Creatinine Ratio 11.6, Glucose 225 H, Calcium 8.1 L 11/08/17 05:05: WBC 4.8, RBC 4.84, Hgb 15.1, Hct 41.8, MCV 86.4, MCH 31.2, MCHC 36.1 H, RDW 13.1, RDW Differential 40.5, Plt Count 130 L, MPV 11.3 11/08/17 05:05: PT 12.6, INR 0.9, APTT 26.1 Rhythm: EKG: Normal sinus rhythm with no acute changes. Assessment/Plan 1. Chest pain. This gentleman presents with recurrent chest pain and has undergone repeated stress testing which have not demonstrated any evidence of ischemia. My recommendation at this time with his chest pain is that as it appears to be atypical I do not think that a fourth stress test in a year is warranted. I will therefore suggest that he either be treated with medical therapy or undergo a repeat cardiac catheterization. If no significant obstructive lesion is found or a lesion that can be intervened on then he can be discharged and follow-up as an outpatient. Addendum The catheterization today demonstrated the following: Left main coronary artery noted to be normal. Left anterior descending artery with mild luminal irregularities. First septal sheet metal smith with moderate disease in the small vessel. First bifurcating diagonal vessel which is small with moderately severe disease Codominant left circumflex artery with mid segment 50% stenosis. First obtuse marginal branch with no high-grade stenosis. Previously placed stent in the mid circumflex artery with no significant stenosis. Codominant right coronary artery with previously placed stent with mild in- stent stenosis Reduced ejection fraction of 45%. Based on the above angiographic findings the patient will be managed with medical therapy. We will attempt to put him on once a day medication to improve compliance. He can be discharged later today. 2. Hypertension He will continue with aggressive antihypertensive therapy with his medications adjusted as appropriate. 3.Hyperlipidemia He will continue with aggressive risk factor modification. It appears from previous notes that he has been less than appropriately compliant with his medical therapy. This needs to be emphasized to him about the importance of following up with a medical establishment appropriately.
[2017-11-08] MEDS: Carvedilol 6.25 MG Tablet PO (08:15)
[2017-11-08] MEDS: guaiFENesin 1,200 MG Tablet 1200 MG PO (08:15)
[2017-11-08] MEDS: buPROPion (XL) 300 MG TABLET.XL PO (08:16)
[2017-11-08] MEDS: Famotidine 20 MG Tablet PO (08:16)
[2017-11-08] MEDS: Pantoprazole Sodium 40 MG Tablet PO (08:16)
[2017-11-08] MEDS: Acetaminophen 325 MG Tablet 650 MG PO (08:17)
[2017-11-08] MEDS: 0.9% Normal Saline 1,000 ML 15 ML IV (08:25)
--- NOTE | 2017-11-08 09:36 | CL.D_ITS ---
Patient Name: RAND PIMENTEL Study Date: 11/08/2017 Performing: Yony Sigala MD Ht: 72.04 inches 183 cm : 1965 Wt: 229.28 lbs 104 kg Age: 52 Gender: male BSA: 2.26 PROCEDURE(S) PERFORMED UI83-XAP/COR/LV CLINICAL PROFILE AND INDICATIONS INDICATIONS: 52-year-old man with a history of chest pain and recurrent normal stress test. CONCLUSIONS Previously placed stent in the left circumflex artery as well as the right coronary artery patent. RECOMMENDATIONS Medical therapy DESCRIPTION OF PROCEDURE The patient arrived to the procedure lab. The risks and benefits of the procedure as well as a full d escription of our services here and current unavailability of surgical backup were fully explained to the patient and/or their significant other prior to the catheterization. The Timeout was completed, verifying the correct patient and procedure. The patient's procedural site was prepped and draped in the usual fashion. Local anesthetic was given subcutaneously to right groin region with Lidocaine 2%. Using a modified Seldinger technique, arterial access was obtained via the right femoral artery, a 5 Fr sheath was inserted. Left Coronary Artery selective angiography was performed in multiple views u sing a 5 Fr. JL4 catheter. Right Coronary Artery selective angiography was then performed in multiple views using a 5 Fr. 3DRC (Fadi) catheter. Left Ventriculography was performed in HARO projection using a 5 Fr. Pigtail catheter. LV to AO pullback pressures were then recorded.The arterial sheath wa s pulled and manual compression applied until hemostasis is achieved. CORONARY ANGIOGRAPHY DOMINANCE: Co- Dominant LEFT HEART ASSESSMENT Left Ventricular Ejection Fraction: by LV Gram 45 % Depressed Left Ventricular systolic function LEFT MAIN: Angiographically normal LEFT ANTERIOR DECENDING ARTERY: Mild luminal irregularities DIAGONAL 1: Proximal - Severe disease in a very small vessel SEPTAL: Moderate luminal irregularities up to 50% CIRCUMFLEX ARTERY: 50 % Stenosis MID CIRC: Previously placed stent is patent OM 2: Proximal - Mild luminal irregularities RIGHT CORONARY ARTERY: PROX RCA: Previously placed stent is patent COMPLICATIONS No Complications PROCEDURE MEDICATIONS Versed 1 mg IV Fentanyl 50 mcg IV Versed 1 mg IV Oxygen: 2 L/min via nasal cannula SUMMARY OF HEMODYNAMIC DATA Time AIR REST ECG 08:48:28 AO 175/121 (145) SA 09:10:07 LV 162/23, 26 09:16:57 LV 161/23, 27 09:17:04 LV 182/11, 33 09:17:59 LVp 187/9, 30 09:18:05 AOp 187/115 (146) 09:18:10 Signed By Yony Sigala MD On 11/08/2017 09:35:38 Yony Sigala MD
[2017-11-08] MEDS: Metoprolol(XL)Succ 50 MG Tablet PO (10:52)
[2017-11-08] MEDS: amLODIPine 10 MG Tablet PO (10:53)
[2017-11-08 11:30] LABS: Bedside Glucose 227 mg/dL (70-110)
--- NOTE | 2017-11-08 11:43 | DCINST_ITS ---
- Discharge Diagnoses Current Active Problems: Current Active and Chronic Problems Obesity (BMI 30.0-34.9) (Chronic) You will use the following diet at home:: Calorie/Carbohydrate Controlled ( specify 1200, 1400, etc) - 1800 lyndsey ADA Your food should be the consistency of: Regular Your liquids should be the consistency of: Regular/Thin Discharge Activity: Return to Normal Activity Weight Bearing Status: Full weight bearing Allergies/Adverse Reactions: Allergies No Known Allergies Allergy (Verified 11/06/17 20:28) Medications to take at Discharge Aspirin [Aspirin, Baby] 81 mg PO DAILY 06/11/16 Atorvastatin Calcium [Lipitor] 80 mg PO QHS 06/11/16 Clopidogrel Bisulfate [Plavix] 75 mg PO DAILY 06/11/16 Lisinopril [Zestril] 10 mg PO DAILY 06/11/16 Nitroglycerin 0.4 mg SL PRN PRN 07/04/16 Bupropion HCl [Bupropion Xl] 300 mg PO DAILY 11/09/16 Pantoprazole Sodium [Protonix] 40 mg PO DAILY 03/18/17 Amlodipine [Norvasc] 10 mg PO DAILY #30 tab 11/08/17 Metformin HCl [Metformin HCl ER] 500 mg PO BID #0 11/08/17 Metoprolol(XL)Succ [Toprol Xl (Beta Leon)] 50 mg PO DAILY #30 tab 11/08/17 The following prescriptions were given: Amlodipine [Norvasc] 10 mg PO DAILY #30 tab Metoprolol(XL)Succ [Toprol Xl (Beta Leon)] 50 mg PO DAILY #30 tab Primary Care Physician: Trang He MD [Primary Care Provider] - Please follow up with your Primary Care Physician in: in 1-2 weeks- you will need to be placed on addtional diabetic meds Please Follow Up With: Yony Sigala MD When: as directed
--- NOTE | 2017-11-08 11:57 | PCM.DC.SUM ---
Discharge Date and Diagnosis Date of Admission: 11/06/17 Date of Discharge: 11/08/17 - Primary Discharge Diagnosis 1. Atypical chest pain-ACS ruled out. 2. Suspected viral gastroenteritis 3. Acute kidney injury secondary to #2 4. Poorly controlled type 2 diabetes mellitus 5. Hyperlipidemia, elevated triglycerides-suspect noncompliance with medication regimen 6. CAD with history of AZ/PCI 7. Hypertension 8. Tobacco dependence/marijuana use 9. Obesity 10. GERD - Secondary Discharge Diagnosis Chronic Problems Obesity (BMI 30.0-34.9) (Chronic) Myocardial infarct, old (Chronic) S/P PTCA (percutaneous transluminal coronary angioplasty) (Chronic) S/P PTCA (percutaneous transluminal coronary angioplasty) (Chronic) CAD (coronary artery disease) (Chronic) Tobacco abuse (Chronic) CAD (coronary artery disease) (Chronic) Diabetes (Chronic) HLD (hyperlipidemia) (Chronic) HTN (hypertension) (Chronic) Hospital Course and Treatment Imaging Results: Diagnostic Data Chest X-Ray 11/06/17 20:33 IMPRESSION: No radiographic evidence of acute cardiopulmonary disease. Electronically Signed: Jessica Cosme MD at 21:04 EDT , Service support , Dr. Sigala-Cardiology Operations: None Procedures: Cardiac catheterization Summary of Care Provided: Patient is a 52-year-old male admitted 11/06/2017 due to nausea, vomiting, diarrhea, chest pain. He has a past medical history of CAD status post AZ with PCI, tobacco dependence, poorly controlled type 2 diabetes mellitus, obesity, hypertension, hyperlipidemia. 1. Atypical chest pain-ACS ruled out. Patient denies further chest pain. Chest x-ray unremarkable. Troponin negative. EKG without evidence of ischemia. Continue aspirin, Plavix, statin, beta-leon. Patient underwent cardiac catheterization 11/08/2017 which demonstrated LVEF 45%, mild luminal irregularities left anterior descending artery, diagonal 1 with proximal severe disease and a very small vessel, septal moderate luminal irregularities to 50%, circumflex artery 50%, mid circumflex previously placed stent is patent, OM 2 proximal mild luminal irregularities, right coronary artery proximal RCA previously placed stent is patent. Patient will continue outpatient follow-up with Dr. Sigala. 2. Suspected viral gastroenteritis-resolved. Patient denies further nausea, vomiting, diarrhea. Respiratory panel negative. Patient has not had further bowel movement for stool sample. Patient received IV fluids. 3. Acute kidney injury-secondary to #2. Creatinine on admission 1.4. Improved to 0.60 with IV fluids. 4. Poorly controlled type 2 diabetes mellitus-hemoglobin A1c 12.5%. Continue home metformin regimen at discharge. Patient will need further follow-up with primary care physician for additional diabetes medication and management. Patient has history of noncompliance with regimen. 5. CAD status post AZ with PCI-continue aspirin, Plavix, statin, beta-leon. Cardiac catheterization as noted above. 6. Hyperlipidemia-continue statin. Triglycerides 901, cholesterol 211, HDL 25. Patient is on high-dose statin, atorvastatin 80 mg daily. Patient may need additional agent, can discuss with PCP. 7. Tobacco dependence/marijuana use-encourage cessation. 8. Hypertension-amlodipine added to home regimen. 9. Obesity-encourage dietary and lifestyle modifications. 10. GERD- continue famotidine. General: Alert, Oriented x3, Cooperative, No apparent distress HEENT: Atraumatic, PERRLA, EOMI, Normocephalic Neck: Supple, No JVD, Negative Carotid Bruits Lungs: Clear to auscultation, Diminished Cardiovascular: Regular rate, Regular Rhythm, Normal S1, Normal S2, No murmurs Abdomen: Bowel Sounds Present, Soft, Non Tender, Non-Distended Extremities: No clubbing, No cyanosis, No edema, Capillary Refill Less than 3 Seconds Skin: No rashes, No breakdown Musculoskeletal: No Tenderness to Palpation of Joints or Extremities Neurological: Cranial nerves II-XII grossly intact, Neuro grossly intact Psych/Mental Status: Normal Affect, Appropriate Patient seen and examined prior to discharge. Physical assessment as noted above. Patient is stable for discharge home with recommendations as noted above. This patient was seen by LUCY Guzman under the supervision of Dr. Larson. Discharge Diet: Low fat/ Low Cholesterol, Carb Control Diet Discharge Activity: Return to Normal Activity Weight Bearing Status: Full weight bearing Call your doctor if your incision/area has: Continuous Slow Oozing, Sudden Increased Bleeding, Increased Pain/ Swelling, Increased Redness, Foul Smelling Discharge Call your doctor if you observe: Shortness of breath, Dizziness, Fainting spells, Chest pain, Increased palpitations (irregular heartbeat) Home Medications: Medications to take at Discharge Aspirin [Aspirin, Baby] 81 mg PO DAILY 06/11/16 Atorvastatin Calcium [Lipitor] 80 mg PO QHS 06/11/16 Clopidogrel Bisulfate [Plavix] 75 mg PO DAILY 06/11/16 Lisinopril [Zestril] 10 mg PO DAILY 06/11/16 Nitroglycerin 0.4 mg SL PRN PRN 07/04/16 Bupropion HCl [Bupropion Xl] 300 mg PO DAILY 11/09/16 Pantoprazole Sodium [Protonix] 40 mg PO DAILY 03/18/17 Amlodipine [Norvasc] 10 mg PO DAILY #30 tab 11/08/17 Metformin HCl [Metformin HCl ER] 500 mg PO BID #0 11/08/17 Metoprolol(XL)Succ [Toprol Xl (Beta Leon)] 50 mg PO DAILY #30 tab 11/08/17 Following Prescrptions Were Given to Patient: Amlodipine [Norvasc] 10 mg PO DAILY #30 tab Metoprolol(XL)Succ [Toprol Xl (Beta Leon)] 50 mg PO DAILY #30 tab Primary Care Physician: Trang He MD [Primary Care Provider] - Please follow up with your Primary Care Physician in: in 1-2 weeks- you will need to be placed on addtional diabetic meds Please Follow Up With: Yony Sigala MD When: as directed Disposition: Home Minutes spent on discharge:: 35 Patient Condition:: Stable Medical Necessity - Tobacco Use Smoking Status: Former smoker Tobacco Use: Non-smoker Meaningful Use Info Meaningful Use Diagnoses (Choose all that apply): None applicable
--- NOTE | 2017-11-08 12:10 | DS.PCM_ITS ---
Discharge Date and Diagnosis Date of Admission: 11/06/17 Date of Discharge: 11/08/17 - Primary Discharge Diagnosis 1. Atypical chest pain-ACS ruled out. 2. Suspected viral gastroenteritis 3. Acute kidney injury secondary to #2 4. Poorly controlled type 2 diabetes mellitus 5. Hyperlipidemia, elevated triglycerides-suspect noncompliance with medication regimen 6. CAD with history of [place]/PCI 7. Hypertension 8. Tobacco dependence/marijuana use 9. Obesity 10. GERD - Secondary Discharge Diagnosis Chronic Problems Obesity (BMI 30.0-34.9) (Chronic) Myocardial infarct, old (Chronic) S/P PTCA (percutaneous transluminal coronary angioplasty) (Chronic) S/P PTCA (percutaneous transluminal coronary angioplasty) (Chronic) CAD (coronary artery disease) (Chronic) Tobacco abuse (Chronic) CAD (coronary artery disease) (Chronic) Diabetes (Chronic) HLD (hyperlipidemia) (Chronic) HTN (hypertension) (Chronic) Hospital Course and Treatment Imaging Results: Diagnostic Data Chest X-Ray 11/06/17 20:33 IMPRESSION: No radiographic evidence of acute cardiopulmonary disease. Electronically Signed: Jessica Cosme MD at 21:04 EDT , Service support , Dr. Sigala-Cardiology Operations: None Procedures: Cardiac catheterization Summary of Care Provided: Patient is a 52-year-old male admitted 11/06/2017 due to nausea, vomiting, diarrhea, chest pain. He has a past medical history of CAD status post AR with PCI, tobacco dependence, poorly controlled type 2 diabetes mellitus, obesity, hypertension, hyperlipidemia. 1. Atypical chest pain-ACS ruled out. Patient denies further chest pain. Chest x-ray unremarkable. Troponin negative. EKG without evidence of ischemia. Continue aspirin, Plavix, statin, beta-leon. Patient underwent cardiac catheterization 11/08/2017 which demonstrated LVEF 45%, mild luminal irregularities left anterior descending artery, diagonal 1 with proximal severe disease and a very small vessel, septal moderate luminal irregularities to 50%, circumflex artery 50%, mid circumflex previously placed stent is patent, OM 2 proximal mild luminal irregularities, right coronary artery proximal RCA previously placed stent is patent. Patient will continue outpatient follow-up with Dr. Sigala. 2. Suspected viral gastroenteritis-resolved. Patient denies further nausea, vomiting, diarrhea. Respiratory panel negative. Patient has not had further bowel movement for stool sample. Patient received IV fluids. 3. Acute kidney injury-secondary to #2. Creatinine on admission 1.4. Improved to 0.60 with IV fluids. 4. Poorly controlled type 2 diabetes mellitus-hemoglobin A1c 12.5%. Continue home metformin regimen at discharge. Patient will need further follow-up with primary care physician for additional diabetes medication and management. Patient has history of noncompliance with regimen. 5. CAD status post AR with PCI-continue aspirin, Plavix, statin, beta-leon. Cardiac catheterization as noted above. 6. Hyperlipidemia-continue statin. Triglycerides 901, cholesterol 211, HDL 25. Patient is on high-dose statin, atorvastatin 80 mg daily. Patient may need additional agent, can discuss with PCP. 7. Tobacco dependence/marijuana use-encourage cessation. 8. Hypertension-amlodipine added to home regimen. 9. Obesity-encourage dietary and lifestyle modifications. 10. GERD- continue famotidine. General: Alert, Oriented x3, Cooperative, No apparent distress HEENT: Atraumatic, PERRLA, EOMI, Normocephalic Neck: Supple, No JVD, Negative Carotid Bruits Lungs: Clear to auscultation, Diminished Cardiovascular: Regular rate, Regular Rhythm, Normal S1, Normal S2, No murmurs Abdomen: Bowel Sounds Present, Soft, Non Tender, Non-Distended Extremities: No clubbing, No cyanosis, No edema, Capillary Refill Less than 3 Seconds Skin: No rashes, No breakdown Musculoskeletal: No Tenderness to Palpation of Joints or Extremities Neurological: Cranial nerves II-XII grossly intact, Neuro grossly intact Psych/Mental Status: Normal Affect, Appropriate Patient seen and examined prior to discharge. Physical assessment as noted above. Patient is stable for discharge home with recommendations as noted above. This patient was seen by LUCY Guzman under the supervision of Dr. Larson. Discharge Diet: Low fat/ Low Cholesterol, Carb Control Diet Discharge Activity: Return to Normal Activity Weight Bearing Status: Full weight bearing Call your doctor if your incision/area has: Continuous Slow Oozing, Sudden Increased Bleeding, Increased Pain/ Swelling, Increased Redness, Foul Smelling Discharge Call your doctor if you observe: Shortness of breath, Dizziness, Fainting spells , Chest pain, Increased palpitations (irregular heartbeat) Home Medications: Medications to take at Discharge Aspirin [Aspirin, Baby] 81 mg PO DAILY 06/11/16 Atorvastatin Calcium [Lipitor] 80 mg PO QHS 06/11/16 Clopidogrel Bisulfate [Plavix] 75 mg PO DAILY 06/11/16 Lisinopril [Zestril] 10 mg PO DAILY 06/11/16 Nitroglycerin 0.4 mg SL PRN PRN 07/04/16 Bupropion HCl [Bupropion Xl] 300 mg PO DAILY 11/09/16 Pantoprazole Sodium [Protonix] 40 mg PO DAILY 03/18/17 Amlodipine [Norvasc] 10 mg PO DAILY #30 tab 11/08/17 Metformin HCl [Metformin HCl ER] 500 mg PO BID #0 11/08/17 Metoprolol(XL)Succ [Toprol Xl (Beta Leon)] 50 mg PO DAILY #30 tab 11/08/17 Following Prescrptions Were Given to Patient: Amlodipine [Norvasc] 10 mg PO DAILY #30 tab Metoprolol(XL)Succ [Toprol Xl (Beta Leon)] 50 mg PO DAILY #30 tab Primary Care Physician: Trang He MD [Primary Care Provider] - Please follow up with your Primary Care Physician in: in 1-2 weeks- you will need to be placed on addtional diabetic meds Please Follow Up With: Yony Sigala MD When: as directed Disposition: Home Minutes spent on discharge:: 35 Patient Condition:: Stable Medical Necessity - Tobacco Use Smoking Status: Former smoker Tobacco Use: Non-smoker Meaningful Use Info Meaningful Use Diagnoses (Choose all that apply): None applicable
[2017-11-08] MEDS: 0.9% NaCl Peripheral Flush Adult/Peds IV (14:29)
== END 2017-11-08 11:43 | disposition home or self-care (01) ==
LOC: ED 20:57 → PCU 22:59
PROVIDERS: Internal Medicine; Nurse Practitioner Family; Admitting Provider Family Medicine; Emergency Provider Emergency Medicine; Family Provider Internal Medicine; PCP Internal Medicine; Visit Provider Internal Medicine
DX: R07.89 Other chest pain (principal); R06.02 Shortness of breath; I10 Essential (primary) hypertension; I25.10 Atherosclerotic heart disease of native coronary artery without angina pectoris; E66.9 Obesity, unspecified; N17.9 Acute kidney failure, unspecified; E11.65 Type 2 diabetes mellitus with hyperglycemia; I25.2 Old myocardial infarction; E78.5 Hyperlipidemia, unspecified; K21.9 Gastro-esophageal reflux disease without esophagitis; Z68.31 Body mass index [BMI] 31.0-31.9, adult; Z71.3 Dietary counseling and surveillance; Z79.899 Other long term (current) drug therapy; Z79.84 Long term (current) use of oral hypoglycemic drugs; Z79.02 Long term (current) use of antithrombotics/antiplatelets; Z79.82 Long term (current) use of aspirin; Z87.891 Personal history of nicotine dependence
CPT/HCPCS: 36415; 71045; 80048; 80061; 82962; 83036; 83690; 83735; 84100; 84484; 85025; 85027; 85379; 85610; 85730; 87493; 87506; 87633; 87804; 93005; 93458; 94640; 96361; 96372; 96374; 96375; 96376; 97802; 99152; 99153; 99218; 99285; J3010; J7030; A4216; C1769; G0378; J2405; Q9967

== ENCOUNTER 2018-01-08 22:04 | Observation (INO) | payer MEDICARE, SELFPAY ==
[2018-01-08 22:06] VITALS: BP 163/109; PULSE 97; RESP 13; TEMP 36.7; O2SAT 97; BMI 32.1
[2018-01-08 22:10] VITALS: BP 163/109; PULSE 98; RESP 17; O2SAT 97
--- NOTE | 2018-01-08 22:20 | EKG12_ITS ---
Test Reason : CHEST PAIN Blood Pressure : / mmHG Vent. Rate : 097 BPM Atrial Rate : 097 BPM P-R Int : 160 ms QRS Dur : 086 ms QT Int : 366 ms P-R-T Axes : 063 117 079 degrees QTc Int : 464 ms Normal sinus rhythm Normal ECG Confirmed by EDUARDO GIBSON, DEVYN ([id number]), manuscript editor WILLEM IGNACIO ([id number] on 01/10/2018 2:32:02 PM Referred By: LUIS Confirmed By:DEVYN CLARK MD
--- NOTE | 2018-01-08 22:20 | CT_ITS ---
STUDY: CT BRAIN WITHOUT CONTRAST REASON FOR EXAM: Male, 52 years old. Confusion RADIATION DOSAGE (If Supplied By Facility): CTDIvol = ( 44.99 ) mGy, DLP = ( 812.98 ) mGycm TECHNIQUE: Transaxial CT imaging of the brain was performed without administration of intravenous contrast material. Individualized dose optimization techniques were used for this CT. COMPARISON: June 18, 2016 FINDINGS: Normal soft tissue structures. Normal calvarium. Normal size ventricles and extra-axial spaces for the patient's age. Mild periventricular white matter disease. Encephalomalacia in the right frontal lobe which may be due to old infarct. Normal basal ganglia and thalami. Normal brainstem. Normal cerebellum. There is no intracranial hemorrhage. There are no findings of an acute ischemic infarction. Small mucous retention cyst in the left maxillary sinus. No significant change since prior study CT/Brain/Head without Contrast IMPRESSION: Findings which may be consistent with old frontal lobe infarct. Mild periventricular white matter ischemic changes. No evidence for acute bleed. If concern for acute infarct MRI recommended. Electronically Signed: Willis Hankins MD at 23:26 EDT , Service support ,
--- NOTE | 2018-01-08 22:20 | RAD_ITS ---
STUDY: X-RAY CHEST REASON FOR EXAM: Male, 52 years old. Syncope and SOB TECHNIQUE: Single frontal view of the chest. COMPARISON: 11/06/2017 FINDINGS: The lungs are clear and expanded. There is no demonstrated pleural abnormality. Normal size heart. Normal mediastinum and sang. Normal visualized pulmonary arteries. Normal visualized aortic arch and descending thoracic aorta. Normal visualized thoracic spine. Normal visualized ribs, clavicles, and shoulders. There is no demonstrated abnormality of the visualized soft tissue structures of the upper abdomen. RAD/Chest 1 View IMPRESSION: Normal x-ray examination of the chest. Electronically Signed: Deuce De León MD at 23:24 EDT Tel , Service support ,
--- NOTE | 2018-01-08 22:22 | ED.VISSUMM ---
- ER Visit Summary Date of Service: 01/08/18 Chief Complaint: Confusion History of Present Illness: The patient is a 52 M brought by EMS for transient confusion. The patient states he felt fine earlier today and has had no recent illness. He went over to a friend's and had just eaten a cheeseburger and had gone out to the porch. Bystanders then called EMS stating that he was confused and disoriented did not know where he was and could not answer simple questions. EMS reports that he was confused and unable to tell where he was on their arrival but that he regained normal level of consciousness during transport here to the emergency department. The patient states he last remembers walking up the porch and the next thing he knew he was in the ambulance. No history of prior similar symptoms. He also developed chest pain in the wound here to the hospital. He describes this as sharp located on the left side of the chest and rated a 6 out of 10 nonradiating. He feels a little short of breath and nauseated. He also complains of a headache although he attributes this to the nitroglycerin that was given by EMS. He does report headache usually when given nitroglycerin. He also notes that he had some left lower back pain yesterday but this has resolved and he is uncertain if it is related. He does have a history of prior stroke and coronary artery disease with multiple stents. Physical Examination: Afebrile vitals are stable NIH stroke scale is 1, patient reports decreased sensation to light touch of the left face and left hand. He has normal strength. No facial droop. Clear speech. Patient is alert and oriented ?3 No distress resting comfortably Moist mucous membranes Heart regular rate and rhythm Lungs are clear Abdomen soft nontender Extremities nontender Symmetric radial pulses Test Results: EKG shows normal sinus rhythm at a rate of 97 with no acute ischemic changes. Repeat EKG remains unchanged. CBC BMP notable for glucose 365 otherwise normal. INR normal. Troponin negative. Chest x-ray normal. CT of the head shows old frontal infarct mild periventricular white matter changes no acute bleed no acute process. CTA of the chest shows no acute findings no thoracic aortic dissection. Emergency Department Course and Treatment: Patient had received nitroglycerin and aspirin prior to arrival. He reported no relief and development of headache with nitroglycerin. He was given IV morphine here with improvement of symptoms. His laboratory studies are unremarkable. Given her neurological symptoms and chest pain this also raises concern for possible thoracic aortic dissection so CTA of the chest was obtained which is normal. Given the patient's transient confusion and left hand and facial paresthesias with prior stroke I do believe he needs further neurological workup as well likely to include MRI of the brain. Patient will be discussed with hospitalist and admitted. Treatment Plan: [] Disposition: Admit Impression: Transient confusion Chest pain Left hand and facial paresthesias This note was generated with [employer] dictation software. It may contain incorrect words, spelling, and punctuation that were not noted in review of the chart prior to signing ED Disposition - Plan for ED Patient: Chief Complaint: Alt LOC Referrals: Trang He MD [Primary Care Provider] -
[2018-01-08 22:25] VITALS: BP 160/101; PULSE 87; RESP 14; O2SAT 98
[2018-01-08] MEDS: Morphine 4 MG/ML Syringe IV (22:34)
[2018-01-08] MEDS: Ondansetron 4 MG/2 ML Vial IV (22:35)
[2018-01-08 22:37] LABS: Absolute Lymphocyte Count 2.93 X10^3/ul (0.83-4.51); Absolute Neutrophil Count 2.7 X10^3/uL (2.0-7.7); Basophil# 0.04 X10^3/uL; Basophil% 0.6 % (0-1); Eosinophil# 0.15 X10^3/uL; Eosinophils% 2.4 % (0-5); Hematocrit 43.3 % (40-54); Hemoglobin 15.2 g/dl (13.0-16.5); Lymphocyte # 2.93 X10^3/ul (4.0); Lymphocyte % 47.5 % (19-41); Mean Corp Hgb Conc 35.1 g/gl (32-36); Mean Corpuscular Hgb 30.6 pg (27.0-32.0); Mean Corpuscular Volume 87.3 fL (80-94); Mean Platelet Vol. 11.3 fl (6.2-12.0); Monocyte# 0.39 X10^3/uL; Monocyte% 6.3 % (0-10); Neutrophil # 2.66 X10^3/uL (2.7-7.7); Neutrophil % 43.2 % (47-70); Platelet Count 167 K/mm3 (150-450); RBC Distribution Width CV 13.1 % (11.6-14.6); RBC Distribution Width SD 41.6 fl (35.1-43.9); Red Blood Count 4.96 M/mm3 (4.6-6.2); White Blood Count 6.2 K/mm3 (4.4-11.0)
[2018-01-08 22:39] LABS: POSITIVE COUNT NO; POSITIVE DIFFERENTIAL NO; POSITIVE MORPHOLOGY NO
[2018-01-08 22:42] LABS: Prothrombin Time (Protime)PT. 12.9 SECONDS (11.7-14.9)
[2018-01-08 22:43] LABS: Partial Thromboplast Time 26.3 Seconds (24.1-36.2)
[2018-01-08 22:44] LABS: Anion Gap 8 (5-15); BUN 11 mg/dL (7-18); BUN/Creat Ratio 12.5 RATIO (10-20); Calcium,Total 9.1 mg/dL (8.5-10.1); Chloride 101 mmol/L (98-107); Creatinine, Serum 0.88 mg/dL (0.70-1.30); EST Glomerular Filtration Rate 97 mL/min (>60); Est Glom Filt Rate - Afr Amer 117 mL/min (>60); Estimated Creatinine Clearance 107.78 ml/min; Glucose 365 mg/dL (74-106); Potassium 3.6 mmol/L (3.5-5.1); Sodium Level 136 mmol/L (136-145)
[2018-01-08 22:55] VITALS: BP 120/102; PULSE 86; RESP 14; O2SAT 98
--- NOTE | 2018-01-08 23:05 | CT_ITS ---
STUDY: CTA CHEST REASON FOR EXAM: Male, 52 years old. Chest pain, evaluate for dissection RADIATION DOSAGE (If Supplied By Facility): CTDIvol = ( 15.09 ) mGy, DLP = ( 662.33 ) mGycm TECHNIQUE: The examination was performed with the intravenous administration of 100 ml of Isovue 300 contrast material. Post-processing of the angiographic images was performed, with multiplanar reformation and 3D reconstruction. Individualized dose optimization techniques were used for this CT. COMPARISON: 08/07/2017 FINDINGS: Normal enhancement of the main pulmonary artery and right and left pulmonary arteries. Normal enhancement of the bilateral peripheral pulmonary arteries. There is no demonstrated pulmonary embolism. Normal thoracic aorta and visualized great vessels. There is no demonstrated aortic dissection. Normal heart and pericardium. Normal mediastinum. Normal hilar regions. Normal visualized trachea and bronchi. The lungs are well expanded. Normal pulmonary parenchyma. Calcified pleural plaque on the left. Normal chest wall structures. Normal osseous structures. Normal visualized upper abdomen. CT/CTA Chest W/WO Contrast IMPRESSION: No evidence of thoracic aortic dissection. No acute pulmonary findings. Electronically Signed: Deuce De León MD at 0:57 EDT Tel , Service support ,
[2018-01-08 23:24] VITALS: BP 138/115; PULSE 81; RESP 18; O2SAT 96
--- NOTE | 2018-01-08 23:59 | EKG12_ITS ---
Test Reason : CP Blood Pressure : / mmHG Vent. Rate : 076 BPM Atrial Rate : 076 BPM P-R Int : 176 ms QRS Dur : 090 ms QT Int : 400 ms P-R-T Axes : 033 110 086 degrees QTc Int : 450 ms Normal sinus rhythm Normal ECG When compared with ECG of 08-NOV-2017 05:28, No significant change was found Confirmed by EDUARDO GIBSON, DEVYN ([id number]), research editor WILLEM IGNACIO ([id number]) on 01/11/2018 3:23:35 PM Referred By: MICHAEL Confirmed By:DEVYN CLARK MD
[2018-01-09] VITALS (15 sets, daily range): BP systolic 108–149; BP diastolic 67–100; PULSE 70–86; RESP 16–18; TEMP 36.4–36.8; O2SAT 94–98; BMI 31.3
[2018-01-09] MEDS: Morphine 4 MG/ML Syringe IV (00:07)
--- NOTE | 2018-01-09 02:12 | MRI_ITS ---
STUDY: MRI BRAIN WITHOUT CONTRAST REASON FOR EXAM: Male, 52 years old. Confusion and left-sided facial paresthesias TECHNIQUE: Standardized multiplanar fat and water weighted pulse sequences were obtained. COMPARISON: January 08, 2018 CT examination of the head FINDINGS: No evidence for shift of midline structures, mass effect or compression of ventricles noted. No acute intra or extra-axial hemorrhage is seen. No abnormal intracranial fluid collections identified. The basal cisterns are patent. Posterior fossa structures demonstrate no discrete mass. Encephalomalacia and gliosis in the right frontal lobe consistent with a chronic right frontal lobe infarct. Scattered foci of T2/FLAIR hyperintensity in the periventricular and subcortical white matter noted which are nonspecific in imaging appearance however likely related with chronic small vessel disease. Partial opacification of the right-sided mastoid air cells although nonspecific can be seen in the setting of mastoiditis. Mild mucosal thickening of the ethmoid air cells No discrete mass in the posterior fossa. No evidence for cerebellar tonsillar herniation. Visualized orbital contents appear unremarkable. IMPRESSION: No evidence for acute intracranial hemorrhage, mass effect or acute large territory infarcts. Chronic right frontal lobe infarct with encephalomalacia and gliosis. Mild chronic small vessel disease. Partial opacification of the right-sided mastoid air cells although nonspecific can be seen in the setting of mastoiditis. Mild mucosal thickening of the ethmoid air cells Electronically Signed: Anselmo Low, at 14:36 EDT Tel , Service support , MRI/Brain without Contrast
--- NOTE | 2018-01-09 02:12 | ECHOD_ITS ---
Reason For Study: TIA/CVA Procedure This was a 2D Doppler, Color Flow transthoracic echocardiogram. Exam performed portable in patient room. Left Ventricle Normal LV size. The estimated ejection fraction is 55 %. Left ventricular systolic function is normal. No evidence for diastolic dysfunction. No regional wall motion abnormalities noted. Right Ventricle Normal RV size. Normal systolic function. Atria Normal left atrium. Normal right atrium. Intact atrial septum. Mitral Valve Normal mitral valve. Tricuspid Valve Normal tricuspid valve. Unable to estimate RV systolic pressure due to inadequate jet, pulmonary artery pressure probably normal. Aortic Valve Trisinus/trileaflet aortic valve. Pulmonic Valve The pulmonic valve is not well visualized. Great Vessels Normal aortic root. The pulmonary artery is normal size. Normal inferior vena cava. Pericardium/Pleural No pericardial effusion. Medication Performed a rapid injection of agitated mix of 9 cc saline and 1cc air to assess for atrial septal defect. MMode/2D Measurements & Calculations LVIDd: 4.5 cm IVSd: 0.96 cm Ao root diam: 3.8 cm LVIDs: 3.8 cm LVPWd: 0.98 cm LA dimension: 3.7 cm RVDd: 3.5 cm FS: 15.3 % LAV(MOD-bp): 75.7 ml LVAd ap4: 35.6 cm2 SV(MOD-sp4): 59.1 ml LAV(MOD-bp) Indexed: 33.2 ml/m2 EDV(MOD-sp4): 113.6 ml LAV(MOD-sp2): 95.0 ml EDV(sp4-el): 117.0 ml LAV(MOD-sp4): 57.0 ml LVAs ap4: 22.1 cm2 ESV(MOD-sp4): 54.5 ml ESV(sp4-el): 54.5 ml EF(MOD-sp4): 52.0 % EF(sp4-el): 53.4 % SV(sp4-el): 62.5 ml LA A4 area: 19.4 cm2 RA A4 area: 15.9 cm2 Time Measurements MV dec time: 0.19 sec Doppler Measurements & Calculations MV E max kapil: 97.8 cm/sec Lat Peak E' Kapil: 9.9 cm/sec Med Peak E' Kapil: 8.4 cm/sec MV A max kapil: 88.3 cm/sec E/E' lat: 9.9 E/E' med: 11.7 MV E/A: 1.1 MV V2 max: 102.1 cm/sec MV P1/2t max kapil: 102.1 cm/sec Ao V2 max: 114.6 cm/sec MV max P.2 mmHg MV P1/2t: 94.3 msec Ao max P.3 mmHg MV V2 mean: 59.2 cm/sec MV dec slope: 317.0 cm/sec2 Ao V2 mean: 73.6 cm/sec MV mean P.7 mmHg MVA(P1/2t): 2.3 cm2 Ao mean P.5 mmHg MV V2 VTI: 32.7 cm Ao V2 VTI: 23.2 cm LV V1 max: 94.0 cm/sec PA V2 max: 93.4 cm/sec LV V1 max P.5 mmHg LV V1 mean P.7 mmHg LV V1 mean: 62.1 cm/sec LV V1 VTI: 19.4 cm Interpretation Summary Normal LV size. The estimated ejection fraction is 55 %. Left ventricular systolic function is normal. No evidence for diastolic dysfunction. Intact atrial septum Structurally normal valves. Ordering Physician: Stefano Hassan Referring Physician: ASCENCION LERMA Performed By: Orlando Mcgovern RCS
--- NOTE | 2018-01-09 02:12 | CDU_ITS ---
Reason For Study: TIA Rt. Velocities/BP Lt. Velocities/BP Prox CCA 97/30 cm/sec. Prox CCA 86/25 cm/sec. Mid CCA 99/25 cm/sec. Mid CCA 83/27 cm/sec. Dist CCA 65/24 cm/sec. Dist CCA 67/22 cm/sec. Prox ICA 67/20 cm/sec. Prox ICA 64/29 cm/sec. Mid ICA 66/28 cm/sec. Mid ICA 69/28 cm/sec. Dist ICA 86/38 cm/sec. Dist ICA 103/44 cm/sec. Rt. ICA/CCA = 0.86. Lt. ICA/CCA = 1.24. Prox ECA 89/15 cm/sec. Prox ECA 101/23 cm/sec. Rt. Vert. 34/17 cm/sec. Lt. Vert. 48/20 cm/sec. Right Extracranial There is intimal thickening but no significant atherosclerotic plaque noted in the right common carotid artery. There is homogeneous, smooth atherosclerotic plaque noted in the right internal carotid artery. There is no significant atherosclerotic plaque noted in the right external carotid artery. Antegrade flow is noted in the right vertebral artery. Left Extracranial There is intimal thickening but no significant atherosclerotic plaque noted in the left common carotid artery. There is homogeneous, smooth atherosclerotic plaque noted in the left internal carotid artery. There is no significant atherosclerotic plaque noted in the left external carotid artery. Antegrade flow is noted in the left vertebral artery. Procedure Carotid Duplex [id number]. Exam performed portable in patient room. Interpretation Summary Mild (<50%) stenosis right extracranial internal carotid. Mild (<50%) stenosis left extracranial internal carotid. Flow within the vertebral arteries is antegrade bilaterally. Ordering Physician: Stefano Hassan Referring Physician: Trang He Performed By: Rosey Sam, KAILEECS, RVT
--- NOTE | 2018-01-09 02:30 | EKG12_ITS ---
Test Reason : CP Blood Pressure : / mmHG Vent. Rate : 084 BPM Atrial Rate : 084 BPM P-R Int : 162 ms QRS Dur : 092 ms QT Int : 382 ms P-R-T Axes : 061 120 086 degrees QTc Int : 451 ms Normal sinus rhythm Normal ECG Confirmed by EDUARDO GIBSON, DEVYN ([id number]), editorial cartoonist WILLEM IGNACIO ([id number]) on 01/10/2018 2:32:27 PM Referred By: LUIS Confirmed By:DEVYN CLARK MD
--- NOTE | 2018-01-09 02:53 | NURSING ---
PATIENT COMPLAINING OF CHEST PAIN, REFUSING TO TAKE NITRO STATES ONLY MORPHINE HELPS.
[2018-01-09] MEDS: Morphine 4 MG/ML Syringe 2 MG IV ×4 (03:03→21:35)
[2018-01-09] MEDS: 0.9% Normal Saline 1,000 ML 100 ML IV ×2 (03:03→15:15)
[2018-01-09] MEDS: Clopidogrel Bisulfate 75 MG Tablet PO (03:04)
[2018-01-09] MEDS: Aspirin 81 MG TAB.CHEW PO (03:04)
[2018-01-09 03:15] LABS: Hematocrit 41.8 % (40-54); Hemoglobin 14.9 g/dl (13.0-16.5); Mean Corp Hgb Conc 35.6 g/gl (32-36); Mean Corpuscular Volume 86.9 fL (80-94); Mean Platelet Vol. 11.4 fl (6.2-12.0); Platelet Count 160 K/mm3 (150-450); RBC Distribution Width CV 13.1 % (11.6-14.6); RBC Distribution Width SD 40.9 fl (35.1-43.9); Red Blood Count 4.81 M/mm3 (4.6-6.2); White Blood Count 6.3 K/mm3 (4.4-11.0)
[2018-01-09 03:21] LABS: Scan Indicated on CBC? Y/N NO
[2018-01-09 03:24] LABS: Amphetamine Urine VISTA NEGATIVE (<1000 ng/mL); Barbiturate Urine VISTA NEGATIVE (< 200 ng/mL); Benzodiazepine Urine VISTA NEGATIVE (< 200 ng/mL); Cocaine Urine VISTA NEGATIVE (< 300 ng/mL); Ecstacy Urine VISTA NEGATIVE (< 500 ng/mL); Methadone Urine VISTA NEGATIVE (< 300 ng/mL); PCP Urine VISTA NEGATIVE (< 25 ng/mL); THC Urine VISTA POSITIVE (< 50 ng/mL); Vista UDS pH Range 6
[2018-01-09 03:33] LABS: BUN 11 mg/dL (7-18); BUN/Creat Ratio 16.7 RATIO (10-20); Calcium,Total 8.4 mg/dL (8.5-10.1); Chloride 104 mmol/L (98-107); Cholesterol 175 mg/dL (200); Creatinine, Serum 0.66 mg/dL (0.70-1.30); EST Glomerular Filtration Rate 135 mL/min (>60); Est Glom Filt Rate - Afr Amer 163 mL/min (>60); Glucose 232 mg/dL (74-106); Potassium 3.5 mmol/L (3.5-5.1); Sodium Level 140 mmol/L (136-145); Triglycerides 567 mg/dL
[2018-01-09 03:34] LABS: Anion Gap 8 (5-15); High Density Lipoprotein 29 mg/dL
--- NOTE | 2018-01-09 03:39 | PCM.HP.STD ---
Problem List (1) Mental status alteration Status: Acute (2) Acute chest pain Status: Acute (3) CAD (coronary artery disease) Status: Chronic Qualifiers: (4) Diabetes Status: Chronic Qualifiers: (5) HLD (hyperlipidemia) Status: Chronic Qualifiers: (6) Obesity (BMI 30.0-34.9) Status: Chronic (7) Tobacco abuse Status: Chronic History of Present Illness Date of Admission: 01/09/18 Chief Complaint: Alter mental status The patient is a 52 year old male w/ h/o CAD, DMII, HTN, and drug abuse admitted for altered mental status. He used illegal marijuana yesterday and today he had a cheeseburger and when he walked to his porch, he did not remember anything anymore. He started to remember when he was in the ambulance on his way to the hospital. Per family, he was confused when he sat down on this porch. He was disorientated and EMS was called. He developed chest pain during the ride to the hospital. Chest pain was substernal and sharp. It was episodic and nothing made it better or worse. Pain lasted for minutes and was relieved with morphine but not with nitroglycerin. He also has left sided facial numbness and numbness in the left hand. It appeared to be getting better after arrival to the ED. He also has paresthesia in both of his feet. Most of his symptoms appeared to be improving after several hours. He had persistent chest pain and requested morphine. Past Medical History Past Medical History (Chronic Problems): Chronic Problems Obesity (BMI 30.0-34.9) (Chronic) Myocardial infarct, old (Chronic) S/P PTCA (percutaneous transluminal coronary angioplasty) (Chronic) S/P PTCA (percutaneous transluminal coronary angioplasty) (Chronic) CAD (coronary artery disease) (Chronic) Tobacco abuse (Chronic) CAD (coronary artery disease) (Chronic) Diabetes (Chronic) HLD (hyperlipidemia) (Chronic) HTN (hypertension) (Chronic) Allergies No Known Allergies Allergy (Verified 01/08/18 22:11) Home Medications: Ambulatory Orders Medication Instructions Recorded Aspirin [Aspirin, Baby] 81 mg PO DAILY 06/11/16 Atorvastatin Calcium [Lipitor] 80 mg PO QHS 06/11/16 Clopidogrel Bisulfate [Plavix] 75 mg PO DAILY 06/11/16 Lisinopril [Zestril] 10 mg PO DAILY 06/11/16 Nitroglycerin 0.4 mg SL PRN PRN 07/04/16 Bupropion HCl [Bupropion Xl] 300 mg PO DAILY 11/09/16 Pantoprazole Sodium [Protonix] 40 mg PO DAILY 03/18/17 Amlodipine [Norvasc] 10 mg PO DAILY #30 tab 11/08/17 Metformin HCl [Metformin HCl ER] 500 mg PO BID #0 11/08/17 Metoprolol(XL)Succ [Toprol Xl 50 mg PO DAILY #30 tab 11/08/17 (Beta Leon)] Surgical History: angioplasty, - - LUE surgery, PCI, T+A. Psychiatric History: No pertinent psych hx Lives: With Family Smoking Status: Current every day smoker Alcohol: None Drugs: Marijuana - *Family History Sibling History Items: Heart Disease - Brother w/ CAD/[place] in his 50s, fatal. Maternal History Items: Diabetes, - Paternal History Items: Diabetes, High Cholesterol, Heart Disease - CAD s/p [place] in his 50s., Hypertension, - - diabetes, heart disease Review of Systems Constitutional: Denies: Chills, Fever, Weight Change HEENT: Denies: Head Aches, Sinus Congestion, Sinus Drainage Cardiovascular: Reports: Chest Pain. Denies: Palpitations Respiratory: Denies: Cough, Shortness of breath at rest, Sputum production Gastrointestinal: Denies: Abdominal Pain, Nausea, Vomiting Genitourinary: Denies: Dysuria Musculoskeletal: Denies: Joint Pain, Joint Tenderness Skin: Denies: Rash, Wounds Neurological: Reports: Confusion. Denies: Focal weakness, Numbness, Tingling Psychiatric: Denies: Anxiety, Depression, Homicidal Ideations, Suicidal Ideations Hematologic/ Lymphatic: Denies: Easy Bruising, Easy Bleeding VTE Information - Inpt Only VTE Present on Admission: No VTE Mechan Device Prophylaxis: SCD's VTE Pharm Prophylaxis ordered?: Yes Patient Problems: Active and Suspected Problems Mental status alteration (Acute) - Physical Exam General: Alert, Oriented x3, Cooperative HEENT: Atraumatic, PERRLA, EOMI, Normocephalic Neck: Supple, No JVD, Negative Carotid Bruits Lungs: Clear to auscultation, Normal air movement Cardiovascular: Regular rate, No murmurs Abdomen: Bowel Sounds Present, Soft, Non Tender Extremities: No edema, Capillary Refill Less than 3 Seconds Skin: No rashes, No breakdown Musculoskeletal: No Tenderness to Palpation of Joints or Extremities Neurological: Cranial nerves II-XII grossly intact Psych/Mental Status: Normal Affect, Appropriate Vital Signs Temp Pulse Resp BP Pulse Ox 97.6 F L 76 18 147/100 H 97 01/09/18 02:38 01/09/18 02:38 01/09/18 02:38 01/09/18 02:38 01/09/18 02:38 Oxygen Delivery Method Room Air Weight: 104.7 kg Body Mass Index (BMI) 31.3 Laboratory Tests Past 24 Hrs 01/09/18 01/09/18 01/09/18 02:43 02:43 02:43 WBC RBC Hgb Hct MCV MCH MCHC RDW RDW Differential Plt Count MPV Sodium Potassium Chloride Carbon Dioxide Anion Gap BUN Creatinine Estim Creat Clear Calc Est GFR (MDRD) Af Amer Est GFR (MDRD) Non-Af BUN/Creatinine Ratio Glucose Calcium Ammonia 47.0 H Troponin I Pending Triglycerides Cholesterol LDL Cholesterol VLDL Cholesterol HDL Cholesterol Vitamin B12 Folate Pending TSH Pending Cortisol RPR Pending 01/09/18 01/09/18 01/09/18 02:43 02:43 02:43 WBC 6.3 RBC 4.81 Hgb 14.9 Hct 41.8 MCV 86.9 MCH 31.0 MCHC 35.6 RDW 13.1 RDW Differential 40.9 Plt Count 160 MPV 11.4 Sodium 140 Potassium 3.5 Chloride 104 Carbon Dioxide 28.0 Anion Gap 8 BUN 11 Creatinine 0.66 L Estim Creat Clear Calc 143.70 Est GFR (MDRD) Af Amer 163 Est GFR (MDRD) Non-Af 135 BUN/Creatinine Ratio 16.7 Glucose 232 H Calcium 8.4 L Ammonia Troponin I Triglycerides 567 H Cholesterol 175 LDL Cholesterol TNP VLDL Cholesterol TNP HDL Cholesterol 29 L Vitamin B12 Pending Folate TSH Cortisol Pending RPR Assessment/Plan Active and Suspected Problems Mental status alteration (Acute) 52 year old male w/ h/o CAD, DMII, HTN, and drug abuse admitted for altered mental status. 1) Altered mental status: Unclear etiology. Possible seizure vs drug. Will get ammonia, B12/folate, TSH, cortisol and RPR. CT brain negative. Supportive care. 2) Left hand numbness: Possible TIA. Workup negative. Will get carotid US and MRI in AM. C/w medical management. Consulted neuro. 3) Chest pain: Atypical. No improvement with nitro. Probably MSK. ECHO in AM. Serial trops. Supportive care. 4) Marijuana abuse: Education done. Drug is possible laced. Monitor.
[2018-01-09 03:43] LABS: Thyroid Stim Hormone (TSH) 3.71 uIU/mL (0.358-3.74)
[2018-01-09 06:56] LABS: Bedside Glucose 261 mg/dL (70-110)
[2018-01-09] MEDS: 0.9% NaCl Peripheral Flush Adult/Peds IV ×3 (07:01→21:36)
[2018-01-09] MEDS: Insulin Lispro 100 UNIT/ML INSULN.PEN SC ×4 (08:15→21:24)
[2018-01-09] MEDS: Lisinopril 10 MG Tablet PO (09:40)
[2018-01-09] MEDS: Enoxaparin 40 MG/0.4 ML Syringe SC (09:40)
[2018-01-09] MEDS: buPROPion (XL) 300 MG TABLET.XL PO (09:40)
[2018-01-09] MEDS: Metoprolol(XL)Succ 50 MG Tablet PO (09:40)
[2018-01-09] MEDS: amLODIPine 10 MG Tablet PO (09:40)
[2018-01-09] MEDS: Pantoprazole Sodium 40 MG Tablet PO (09:40)
--- NOTE | 2018-01-09 11:24 | PCM.CONS.GEN ---
Reason for Consult Date of Consultation: 01/09/18 Reason for Consultation: CONFUSION History of Present Illness: The patient is a 52 year old M presented with confusion noted by others at a republican. apparently those around him said he wasnt right. pt remembers eating a hamburger, went to speak to his friends, then he became aware in the ambulance 15 minutes later, now feels normal except in an ambulance. pt denies memory, although son reports hes seen this two other times, no trigger, ED evaluation otherwise negative. denies diaphoresis, nausea. missed all his meds yesterday. did not smoke marijuana on the day of the event, but did the day before. +tob. +stress. reports awakens noting sore tongue/tongue biting at night Per admit H&P: The patient is a 52 year old male w/ h/o CAD, DMII, HTN, and drug abuse admitted for altered mental status. He used illegal marijuana yesterday and today he had a cheeseburger and when he walked to his porch, he did not remember anything anymore. He started to remember when he was in the ambulance on his way to the hospital. Per family, he was confused when he sat down on this porch. He was disorientated and EMS was called. He developed chest pain during the ride to the hospital. Chest pain was substernal and sharp. It was episodic and nothing made it better or worse. Pain lasted for minutes and was relieved with morphine but not with nitroglycerin. He also has left sided facial numbness and numbness in the left hand. It appeared to be getting better after arrival to the ED. He also has paresthesia in both of his feet. Most of his symptoms appeared to be improving after several hours. He had persistent chest pain and requested morphine. Past Medical History Past Medical History (Chronic Problems): Chronic Problems Obesity (BMI 30.0-34.9) (Chronic) Myocardial infarct, old (Chronic) S/P PTCA (percutaneous transluminal coronary angioplasty) (Chronic) S/P PTCA (percutaneous transluminal coronary angioplasty) (Chronic) CAD (coronary artery disease) (Chronic) Tobacco abuse (Chronic) CAD (coronary artery disease) (Chronic) Diabetes (Chronic) HLD (hyperlipidemia) (Chronic) HTN (hypertension) (Chronic) Allergies No Known Allergies Allergy (Verified 01/08/18 22:11) Home Medications: Ambulatory Orders Medication Instructions Recorded Aspirin [Aspirin, Baby] 81 mg PO DAILY 06/11/16 Atorvastatin Calcium [Lipitor] 80 mg PO QHS 06/11/16 Clopidogrel Bisulfate [Plavix] 75 mg PO DAILY 06/11/16 Lisinopril [Zestril] 10 mg PO DAILY 06/11/16 Nitroglycerin 0.4 mg SL PRN PRN 07/04/16 Bupropion HCl [Bupropion Xl] 300 mg PO DAILY 11/09/16 Pantoprazole Sodium [Protonix] 40 mg PO DAILY 03/18/17 Amlodipine [Norvasc] 10 mg PO DAILY #30 tab 11/08/17 Metformin HCl [Metformin HCl ER] 500 mg PO BID #0 11/08/17 Metoprolol(XL)Succ [Toprol Xl 50 mg PO DAILY #30 tab 11/08/17 (Beta Leon)] Surgical History: angioplasty, - - LUE surgery, PCI, T+A. Psychiatric History: No pertinent psych hx Lives: With Family Smoking Status: Current every day smoker Alcohol: None Drugs: Marijuana - *Family History Sibling History Items: Heart Disease - Brother w/ CAD/[place] in his 50s, fatal. Maternal History Items: Diabetes, - Paternal History Items: Diabetes, High Cholesterol, Heart Disease - CAD s/p [place] in his 50s., Hypertension, - - diabetes, heart disease Review of Systems Constitutional: Denies: Chills, Fever, Weight Change HEENT: Denies: Head Aches, Sinus Congestion, Sinus Drainage Cardiovascular: Denies: Chest Pain, Palpitations Respiratory: Denies: Cough, Shortness of breath at rest, Sputum production Gastrointestinal: Denies: Abdominal Pain, Nausea, Vomiting Genitourinary: Denies: Dysuria Musculoskeletal: Denies: Joint Pain, Joint Tenderness Skin: Denies: Rash, Wounds Neurological: Denies: Numbness, Tingling, Focal weakness Psychiatric: Denies: Anxiety, Depression, Homicidal Ideations, Suicidal Ideations Hematologic/ Lymphatic: Denies: Easy Bruising, Easy Bleeding Patient Problems: Active and Suspected Problems Mental status alteration (Acute) - Physical Exam General: Alert, Oriented x3, Cooperative HEENT: Atraumatic, PERRLA, EOMI, Normocephalic Neck: Supple, No JVD, Negative Carotid Bruits Lungs: Clear to auscultation, Normal air movement Cardiovascular: Regular rate, No murmurs Abdomen: Bowel Sounds Present, Soft, Non Tender Extremities: No edema, Capillary Refill Less than 3 Seconds Skin: No rashes, No breakdown Musculoskeletal: No Tenderness to Palpation of Joints or Extremities Neurological: Cranial nerves II-XII grossly intact Psych/Mental Status: Normal Affect, Appropriate Vital Signs Temp Pulse Resp BP Pulse Ox 36.6 C 78 18 122/67 H 94 01/09/18 09:40 01/09/18 09:40 01/09/18 09:40 01/09/18 09:40 01/09/18 09:40 Oxygen Delivery Method Room Air Weight: 104.7 kg Body Mass Index (BMI) 31.3 Intake and Output for Last 24 Hours 01/07/18 01/08/18 01/09/18 23:59 23:59 23:59 Intake Total 277 / 277 Balance 277 / 277 Laboratory Tests Past 24 Hrs 01/09/18 01/09/18 01/09/18 02:43 02:43 02:43 WBC RBC Hgb Hct MCV MCH MCHC RDW RDW Differential Plt Count MPV Sodium Potassium Chloride Carbon Dioxide Anion Gap BUN Creatinine Estim Creat Clear Calc Est GFR (MDRD) Af Amer Est GFR (MDRD) Non-Af BUN/Creatinine Ratio Glucose Calcium Ammonia 47.0 H Troponin I < 0.015 Triglycerides Cholesterol LDL Cholesterol VLDL Cholesterol HDL Cholesterol Vitamin B12 Folate 13.60 TSH 3.71 Cortisol RPR Pending 01/09/18 01/09/18 01/09/18 02:43 02:43 02:43 WBC 6.3 RBC 4.81 Hgb 14.9 Hct 41.8 MCV 86.9 MCH 31.0 MCHC 35.6 RDW 13.1 RDW Differential 40.9 Plt Count 160 MPV 11.4 Sodium 140 Potassium 3.5 Chloride 104 Carbon Dioxide 28.0 Anion Gap 8 BUN 11 Creatinine 0.66 L Estim Creat Clear Calc 143.70 Est GFR (MDRD) Af Amer 163 Est GFR (MDRD) Non-Af 135 BUN/Creatinine Ratio 16.7 Glucose 232 H Calcium 8.4 L Ammonia Troponin I Triglycerides 567 H Cholesterol 175 LDL Cholesterol TNP VLDL Cholesterol TNP HDL Cholesterol 29 L Vitamin B12 Pending Folate TSH Cortisol Pending RPR 01/09/18 01/09/18 05:28 08:10 WBC RBC Hgb Hct MCV MCH MCHC RDW RDW Differential Plt Count MPV Sodium Potassium Chloride Carbon Dioxide Anion Gap BUN Creatinine Estim Creat Clear Calc Est GFR (MDRD) Af Amer Est GFR (MDRD) Non-Af BUN/Creatinine Ratio Glucose Calcium Ammonia Troponin I < 0.015 < 0.015 Triglycerides Cholesterol LDL Cholesterol VLDL Cholesterol HDL Cholesterol Vitamin B12 Folate TSH Cortisol RPR POC Glucose 01/09/18 06:49 POC Glucose 261 H Current Medications Generic Name Dose Route Start Last Admin Trade Name Freq PRN Reason Stop Dose Admin Amlodipine Besylate 10 mg 01/09/18 10:00 01/09/18 09:40 Norvasc PO 10 mg DAILY DELIA Administration Aspirin 81 mg 01/09/18 08:00 01/09/18 03:04 Aspirin, Baby PO 81 mg DAILYCM DELIA Administration Atorvastatin Calcium 80 mg 01/09/18 22:00 Lipitor PO QHS DELIA Bupropion HCl 300 mg 01/09/18 10:00 01/09/18 09:40 Wellbutrin Xl PO 300 mg DAILY DELIA Administration Clopidogrel Bisulfate 75 mg 01/09/18 10:00 01/09/18 03:04 Plavix PO 75 mg DAILY DELIA Administration Enoxaparin Sodium 40 mg 01/09/18 10:00 01/09/18 09:40 Lovenox SC 40 mg DAILY DELIA Administration Sodium Chloride 1,000 mls @ 100 mls/hr 01/09/18 02:12 01/09/18 03:03 IV 100 mls/hr .Q10H DELIA Administration Insulin Human Lispro 0 unit 01/09/18 07:00 01/09/18 08:15 Humalog Kwikpen (Bkc) SC 2 u ACHS DELIA Administration Protocol Lisinopril 10 mg 01/09/18 10:00 01/09/18 09:40 Zestril PO 10 mg DAILY DELIA Administration Magnesium Hydroxide 30 ml 01/09/18 02:12 Milk Of Magnesia PO DAILY PRN Constipation Metoprolol Succinate 50 mg 01/09/18 10:00 01/09/18 09:40 Toprol Xl (Beta Leon) PO 50 mg DAILY DELIA Administration Morphine Sulfate 2 mg 01/09/18 02:48 01/09/18 07:00 IV 2 mg Q4H PRN PRN Administration SEVERE PAIN (6-10/10) Nitroglycerin 0.4 mg 01/09/18 02:12 Nitrostat SUBLINGUAL Q5M PRN CHEST PAIN Pantoprazole Sodium 40 mg 01/09/18 10:00 01/09/18 09:40 Protonix PO 40 mg DAILY DELIA Administration Sodium Chloride 5 - 30 ml 01/09/18 02:29 01/09/18 07:01 IV 10 ml UD PRN Administration SALINE FLUSH Current Home Med List Medication Instructions Recorded Confirmed Type Aspirin [Aspirin, Baby] 81 mg PO DAILY 06/11/16 01/08/18 History Atorvastatin Calcium [Lipitor] 80 mg PO QHS 06/11/16 01/08/18 History Clopidogrel Bisulfate [Plavix] 75 mg PO DAILY 06/11/16 01/08/18 History Lisinopril [Zestril] 10 mg PO DAILY 06/11/16 01/08/18 History Nitroglycerin 0.4 mg SL PRN PRN 07/04/16 01/08/18 History Bupropion HCl [Bupropion Xl] 300 mg PO DAILY 11/09/16 01/08/18 History Pantoprazole Sodium [Protonix] 40 mg PO DAILY 03/18/17 01/08/18 History Amlodipine [Norvasc] 10 mg PO DAILY #30 tab 11/08/17 01/08/18 Rx Metformin HCl [Metformin HCl ER] 500 mg PO BID #0 11/08/17 01/08/18 Rx Metoprolol(XL)Succ [Toprol Xl 50 mg PO DAILY #30 tab 11/08/17 01/08/18 Rx (Beta Leon)] MRI reviewed, no acute. He has an old wedge-shaped small right MCA distribution infarct, which was present on a CAT scan of his brain performed in 05/2016, as well as an MRI of the brain in 2008 Assessment/Plan Active and Suspected Problems Mental status alteration (Acute) Confusional episode: possible metabolic, possible seizure. no cva eeg outpt psg dc if above neg
[2018-01-09 12:30] LABS: Bedside Glucose 256 mg/dL (70-110)
[2018-01-09] MEDS: oxyCODONE 5 MG Tablet PO (13:09)
--- NOTE | 2018-01-09 15:35 | PCM.HOSP.N ---
Hospitalist Note The patient was admitted whizzer hand today. He has multiple comorbidities including coronary artery disease status post 7 stents, diabetes mellitus type 2, hypertension, chronic back pain with history of drug abuse in the past. He claims he is clean now. He had marijuana a day before yesterday. Currently, he complained of chest pain which is constant midsternal, localized without associated shortness of breath. H&P, vitals, labs, plan of management reviewed. On exam, lungs are clear. Neuro no acute finding. Serial troponin enzymes are negative. Fasting profile shows triglyceride 567, total cholesterol 175. HDL 29. LDL could not be calculated. TSH, folate normal. The patient was seen by neurologist and MRI suggestive of previous stroke, or frontal lobe infarct. 2 strokes in the past with no residual deficit, first 1 in early 1999 and a second 1 about 2007. CTh is negative of acute aortic dissection, pulmonary embolism or pneumonia. He had recent cardiac cath in October 2017 which shows previously placed stent in left circumflex and right coronary artery. LVEF by LV gram, 45% with depressed LV systolic function. Diagonal 1 proximal , severe disease in very small vessel. Circumflex 50%. On medical management. I do not think, patient requires further cardiac testing as his serial troponin enzymes are negative. Laboratory Results 01/08/18 22:10: WBC 6.2, RBC 4.96, Hgb 15.2, Hct 43.3, MCV 87.3, MCH 30.6, MCHC 35.1, RDW 13.1, RDW Differential 41.6, Plt Count 167, MPV 11.3, Immature Gran % (Auto) 0.000, Neut % (Auto) 43.2 L, Lymph % (Auto) 47.5 H, Mcmullen % (Auto) 6.3, Eos % (Auto) 2.4, Baso % (Auto) 0.6, Absolute Neuts (auto) 2.7, Absolute Lymphs (auto) 2.93, Total Counted Not Reportable 01/08/18 22:10: PT 12.9, INR 1.0, APTT 26.3 01/08/18 22:10: Sodium 136, Potassium 3.6, Chloride 101, Carbon Dioxide 27.0, Anion Gap 8, BUN 11, Creatinine 0.88, Estim Creat Clear Calc 107.78, Est GFR (MDRD) Af Amer 117, Est GFR (MDRD) Non-Af 97, BUN/Creatinine Ratio 12.5, Glucose 365 H, Calcium 9.1, Troponin I < 0.015 01/08/18 22:10: Urine Opiates Screen NEGATIVE, Urine Methadone Screen NEGATIVE, Ur Barbiturates Screen NEGATIVE, Ur Phencyclidine Scrn NEGATIVE, Ur Amphetamines Screen NEGATIVE, U Methamphetamin-MDMA NEGATIVE, U Benzodiazepines Scrn NEGATIVE, Urine Cocaine Screen NEGATIVE, U Cannabinoids Screen POSITIVE H, Ur Drug Screen Comment 01/09/18 02:43: Troponin I < 0.015, Folate 13.60, TSH 3.71 01/09/18 02:43: Ammonia 47.0 H 01/09/18 02:43: RPR Pending 01/09/18 02:43: Vitamin B12 Pending, Cortisol Pending 01/09/18 02:43: WBC 6.3, RBC 4.81, Hgb 14.9, Hct 41.8, MCV 86.9, MCH 31.0, MCHC 35.6, RDW 13.1, RDW Differential 40.9, Plt Count 160, MPV 11.4 01/09/18 02:43: Sodium 140, Potassium 3.5, Chloride 104, Carbon Dioxide 28.0, Anion Gap 8, BUN 11, Creatinine 0.66 L, Estim Creat Clear Calc 143.70, Est GFR (MDRD) Af Amer 163, Est GFR (MDRD) Non-Af 135, BUN/Creatinine Ratio 16.7, Glucose 232 H, Calcium 8.4 L, Triglycerides 567 H, Cholesterol 175, LDL Cholesterol TNP, VLDL Cholesterol TNP, HDL Cholesterol 29 L 01/09/18 05:28: Troponin I < 0.015 01/09/18 06:49: POC Glucose 261 H 01/09/18 08:10: Troponin I < 0.015 01/09/18 12:15: POC Glucose 256 H Clinical Impression(s) from Imaging Studies Brain CT 01/08/18 22:20 IMPRESSION: Findings which may be consistent with old frontal lobe infarct. Mild periventricular white matter ischemic changes. No evidence for acute bleed. If concern for acute infarct MRI recommended. Electronically Signed: Willis Hankins MD at 23:26 EDT , Service support , Chest X-Ray 01/08/18 22:20 IMPRESSION: Normal x-ray examination of the chest. Electronically Signed: Deuce De León MD at 23:24 EDT Tel , Service support , Chest CTA 01/08/18 23:05 IMPRESSION: No evidence of thoracic aortic dissection. No acute pulmonary findings. Electronically Signed: Deuce De León MD at 0:57 EDT Tel , Service support , Brain MRI 01/09/18 02:12
--- NOTE | 2018-01-09 15:42 | CCHN_ITS ---
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 He has multiple comorbidities including coronary artery disease status post 7 stents, diabetes mellitus type 2, hypertension, chronic back pain with history of drug abuse in the past. He claims he is clean now. He had marijuana a day before yesterday. Currently, he complained of chest pain which is constant midsternal, localized without associated shortness of breath. H&P, vitals, labs, plan of management reviewed. On exam, lungs are clear. Neuro no acute finding. Serial troponin enzymes are negative. Fasting profile shows triglyceride 567, total cholesterol 175. HDL 29. LDL could not be calculated. TSH, folate normal. The patient was seen by neurologist and MRI suggestive of previous stroke, or frontal lobe infarct. 2 strokes in the past with no residual deficit, first 1 in early 1999 and a second 1 about 2007. CTh is negative of acute aortic dissection, pulmonary embolism or pneumonia. He had recent cardiac cath in October 2017 which shows previously placed stent in left circumflex and right coronary artery. LVEF by LV gram, 45% with depressed LV systolic function. Diagonal 1 proximal , severe disease in very small vessel. Circumflex 50%. On medical management. I do not think, patient requires further cardiac testing as his serial troponin enzymes are negative. Laboratory Results 01/08/18 22:10: WBC 6.2, RBC 4.96, Hgb 15.2, Hct 43.3, MCV 87.3, MCH 30.6, MCHC 35.1, RDW 13.1, RDW Differential 41.6, Plt Count 167, MPV 11.3, Immature Gran % (Auto) 0.000, Neut % (Auto) 43.2 L, Lymph % (Auto) 47.5 H, Iron % (Auto) 6.3, Eos % (Auto) 2.4, Baso % (Auto) 0.6, Absolute Neuts (auto) 2.7, Absolute Lymphs (auto) 2.93, Total Counted Not Reportable 01/08/18 22:10: PT 12.9, INR 1.0, APTT 26.3 01/08/18 22:10: Sodium 136, Potassium 3.6, Chloride 101, Carbon Dioxide 27.0, Anion Gap 8, BUN 11, Creatinine 0.88, Estim Creat Clear Calc 107.78, Est GFR ( MDRD) Af Amer 117, Est GFR (MDRD) Non-Af 97, BUN/Creatinine Ratio 12.5, Glucose 365 H, Calcium 9.1, Troponin I < 0.015 01/08/18 22:10: Urine Opiates Screen NEGATIVE, Urine Methadone Screen NEGATIVE, Ur Barbiturates Screen NEGATIVE, Ur Phencyclidine Scrn NEGATIVE, Ur Amphetamines Screen NEGATIVE, U Methamphetamin-MDMA NEGATIVE, U Benzodiazepines Scrn NEGATIVE, Urine Cocaine Screen NEGATIVE, U Cannabinoids Screen POSITIVE H, Ur Drug Screen Comment 01/09/18 02:43: Troponin I < 0.015, Folate 13.60, TSH 3.71 01/09/18 02:43: Ammonia 47.0 H 01/09/18 02:43: RPR Pending 01/09/18 02:43: Vitamin B12 Pending, Cortisol Pending 01/09/18 02:43: WBC 6.3, RBC 4.81, Hgb 14.9, Hct 41.8, MCV 86.9, MCH 31.0, MCHC 35.6, RDW 13.1, RDW Differential 40.9, Plt Count 160, MPV 11.4 01/09/18 02:43: Sodium 140, Potassium 3.5, Chloride 104, Carbon Dioxide 28.0, Anion Gap 8, BUN 11, Creatinine 0.66 L, Estim Creat Clear Calc 143.70, Est GFR ( MDRD) Af Amer 163, Est GFR (MDRD) Non-Af 135, BUN/Creatinine Ratio 16.7, Glucose 232 H, Calcium 8.4 L, Triglycerides 567 H, Cholesterol 175, LDL Cholesterol TNP, VLDL Cholesterol TNP, HDL Cholesterol 29 L 01/09/18 05:28: Troponin I < 0.015 01/09/18 06:49: POC Glucose 261 H 01/09/18 08:10: Troponin I < 0.015 01/09/18 12:15: POC Glucose 256 H Clinical Impression(s) from Imaging Studies Brain CT 01/08/18 22:20 IMPRESSION: Findings which may be consistent with old frontal lobe infarct. Mild periventricular white matter ischemic changes. No evidence for acute bleed. If concern for acute infarct MRI recommended. Electronically Signed: Willis Hankins MD at 23:26 EDT , Service support , Chest X-Ray 01/08/18 22:20 IMPRESSION: Normal x-ray examination of the chest. Electronically Signed: Deuce De León MD at 23:24 EDT Tel , Service support , Chest CTA 01/08/18 23:05 IMPRESSION: No evidence of thoracic aortic dissection. No acute pulmonary findings. Electronically Signed: Deuce De León MD at 0:57 EDT Tel , Service support , Brain MRI 01/09/18 02:12
[2018-01-09 17:26] LABS: Bedside Glucose 279 mg/dL (70-110)
[2018-01-09] MEDS: Atorvastatin Calcium 80 MG Tablet PO (21:23)
[2018-01-09] MEDS: Carvedilol 6.25 MG Tablet PO (21:35)
[2018-01-09] MEDS: Famotidine 20 MG Tablet PO (21:35)
[2018-01-09] MEDS: busPIRone 5 MG Tablet PO (21:35)
[2018-01-09 23:06] LABS: Bedside Glucose 279 mg/dL (70-110)
[2018-01-10] VITALS (7 sets, daily range): BP systolic 112–141; BP diastolic 62–79; PULSE 70–82; RESP 16–18; TEMP 36.6–36.9; O2SAT 94–97; BMI 31.3
[2018-01-10] MEDS: oxyCODONE 5 MG Tablet PO ×4 (01:12→14:02)
[2018-01-10] MEDS: 0.9% Normal Saline 1,000 ML 100 ML IV ×2 (01:16→09:29)
--- NOTE | 2018-01-10 01:20 | EKG12_ITS ---
Test Reason : CP Blood Pressure : / mmHG Vent. Rate : 070 BPM Atrial Rate : 070 BPM P-R Int : 172 ms QRS Dur : 096 ms QT Int : 412 ms P-R-T Axes : 031 099 087 degrees QTc Int : 444 ms Normal sinus rhythm Normal ECG When compared with ECG of 09-JAN-2018 02:28, MANUAL COMPARISON REQUIRED, DATA IS UNCONFIRMED Confirmed by EDUARDO GIBSON, DEVYN ([id number]), video tape editor WILLEM IGNACIO ([id number]) on 01/11/2018 3:21:00 PM Referred By: MICHAEL Confirmed By:DEVYN CLARK MD
[2018-01-10] MEDS: busPIRone 5 MG Tablet PO ×2 (05:11→14:02)
[2018-01-10 07:05] LABS: Bedside Glucose 281 mg/dL (70-110)
[2018-01-10 09:13] LABS: Vitamin B12 560 pg/mL (211-911)
[2018-01-10] MEDS: Insulin Lispro 100 UNIT/ML INSULN.PEN SC (09:16)
[2018-01-10] MEDS: Enoxaparin 40 MG/0.4 ML Syringe SC (09:18)
[2018-01-10] MEDS: Carvedilol 6.25 MG Tablet PO (09:18)
[2018-01-10] MEDS: Escitalopram Oxalate 20 MG Tablet PO (09:18)
[2018-01-10] MEDS: Aspirin 81 MG TAB.CHEW PO (09:18)
[2018-01-10] MEDS: amLODIPine 10 MG Tablet PO (09:19)
[2018-01-10] MEDS: Pantoprazole Sodium 40 MG Tablet PO (09:19)
[2018-01-10] MEDS: Clopidogrel Bisulfate 75 MG Tablet PO (09:19)
[2018-01-10] MEDS: Lisinopril 10 MG Tablet PO (09:19)
[2018-01-10] MEDS: buPROPion (XL) 300 MG TABLET.XL PO (09:19)
--- NOTE | 2018-01-10 10:19 | PCM.DC ---
- Discharge Diagnoses Current Active Problems: Current Active and Chronic Problems Mental status alteration (Acute) You will use the following diet at home:: Cardiac Discharge Activity: Return to Normal Activity Allergies/Adverse Reactions: Allergies No Known Allergies Allergy (Verified 01/08/18 22:11) Medications to take at Discharge Aspirin [Aspirin, Baby] 81 mg PO DAILY 06/11/16 Atorvastatin Calcium [Lipitor] 80 mg PO QHS 06/11/16 Clopidogrel Bisulfate [Plavix] 75 mg PO DAILY 06/11/16 Lisinopril [Zestril] 10 mg PO DAILY 06/11/16 Nitroglycerin 0.4 mg SL PRN PRN 07/04/16 Bupropion HCl [Bupropion Xl] 300 mg PO DAILY 11/09/16 Pantoprazole Sodium [Protonix] 40 mg PO DAILY 03/18/17 Metformin HCl [Metformin HCl ER] 500 mg PO BID #0 11/08/17 Carvedilol 6.25 mg PO BID 01/09/18 Escitalopram Oxalate [Lexapro] 20 mg PO DAILY 01/09/18 Ranitidine [Zantac] 150 mg PO QHS 01/09/18 busPIRone [Buspar] 5 mg PO TID 01/09/18 Primary Care Physician: Trang He MD [Primary Care Provider] - Please follow up with your Primary Care Physician in: in 3-5 days Proposed Discharge Date: 01/10/18
--- NOTE | 2018-01-10 10:22 | PCM.DC.SUM ---
Discharge Date and Diagnosis - Problem List Patient Problems: Active and Suspected Problems Mental status alteration (Acute) Date of Admission: 01/09/18 Date of Discharge: 01/10/18 - Primary Discharge Diagnosis Active and Suspected Problems Mental status alteration (Acute) - Secondary Discharge Diagnosis Chronic Problems Obesity (BMI 30.0-34.9) (Chronic) Myocardial infarct, old (Chronic) S/P PTCA (percutaneous transluminal coronary angioplasty) (Chronic) S/P PTCA (percutaneous transluminal coronary angioplasty) (Chronic) CAD (coronary artery disease) (Chronic) Tobacco abuse (Chronic) CAD (coronary artery disease) (Chronic) Diabetes (Chronic) HLD (hyperlipidemia) (Chronic) HTN (hypertension) (Chronic) Hospital Course and Treatment Operations: None Summary of Care Provided: The patient is a 52 year old M old gentleman with history of CAD with previous stent placement who presented with altered mental status 1. Altered mental status suspected to be secondary to transient ischemic attack please on a monitored bed underwent subsequent evaluation with MRI which was negative for acute CVA and EEG was also ordered as part of patient's management. Patient was seen in consultation by neurology Dr. Hart who recommended for the patient to have subsequent outpatient studies including sleep study. Patient's MRI as well as EEG came back negative 2. Diabetes mellitus type 2 uncontrolled patient is on metformin did continue us also placed on Accu-Cheks before meals and at bedtime, as well as correction insulin 3. Dyslipidemia-patient is on statin therapy, continued at home dose 4. CAD with previous stent placement 5. Diabetic polyneuropathy patient is on hypertension 6. Hypertension-blood pressure controlled, home medications continued with dose adjustment as needed 7. Tobacco dependence counseled on cessation of a nicotine patch for tobacco previous 8. DVT prophylaxis; Lovenox Discharge Activity: Return to Normal Activity Home Medications: Medications to take at Discharge Aspirin [Aspirin, Baby] 81 mg PO DAILY 06/11/16 Atorvastatin Calcium [Lipitor] 80 mg PO QHS 06/11/16 Clopidogrel Bisulfate [Plavix] 75 mg PO DAILY 06/11/16 Lisinopril [Zestril] 10 mg PO DAILY 06/11/16 Nitroglycerin 0.4 mg SL PRN PRN 07/04/16 Bupropion HCl [Bupropion Xl] 300 mg PO DAILY 11/09/16 Pantoprazole Sodium [Protonix] 40 mg PO DAILY 03/18/17 Metformin HCl [Metformin HCl ER] 500 mg PO BID #0 11/08/17 Carvedilol 6.25 mg PO BID 01/09/18 Escitalopram Oxalate [Lexapro] 20 mg PO DAILY 01/09/18 Ranitidine [Zantac] 150 mg PO QHS 01/09/18 busPIRone [Buspar] 5 mg PO TID 01/09/18 Primary Care Physician: Trang He MD [Primary Care Provider] - Please follow up with your Primary Care Physician in: in 3-5 days Disposition: Home Minutes spent on discharge:: 35 Patient Condition:: Stable Medical Necessity - Tobacco Use Smoking Status: Current every day smoker Meaningful Use Info Meaningful Use Diagnoses (Choose all that apply): None applicable Code Visit OBSV E&M: 51208 Observation care discharge
[2018-01-10 11:56] LABS: Bedside Glucose 286 mg/dL (70-110)
--- NOTE | 2018-01-10 13:17 | EEG ---
- Electroencephalogram Date of service: 01/09/2018 History EEG is being done in this 52 yr M to rule out seizures EEG Description: This is an 18 channel EEG with 10-20 lead placement system. Bipolar montages, Referential and Circumferential montages were reviewed. Photic stimulation and Hyperventilation were performed. The posterior dominant background rhythm is 8 HZ synchronous, symmetric, reacting to eye opening and closing. Photic stimulation elicited normal driving response but no abnormal photoparoxysmal response, Hyperventilation did not elicit any abnormal photoparoxysmal response. Sleep was identified. The background rhythm is in the normal alpha frequency range. There was no epileptiform discharges or electrographic seizures noted during this recording. EEG Interpretation This is a normal awake and asleep EEG. There is no epileptiform discharges or electrographic seizures noted during the record.
[2018-01-14 01:20] LABS: Rapid Plasmin Reagin (RPR) NONREACTIVE (NONREACTIVE)
== END 2018-01-10 10:20 | disposition home or self-care (01) ==
LOC: ED 22:29 → PCU 01-09 02:04
PROVIDERS: Internal Medicine; Admitting Provider Internal Medicine; Emergency Provider Emergency Medicine; Family Provider Internal Medicine; PCP Internal Medicine; Visit Provider Internal Medicine
DX: R41.82 Altered mental status, unspecified (principal); I25.2 Old myocardial infarction; I25.10 Atherosclerotic heart disease of native coronary artery without angina pectoris; E78.5 Hyperlipidemia, unspecified; I10 Essential (primary) hypertension; E66.9 Obesity, unspecified; Z68.31 Body mass index [BMI] 31.0-31.9, adult; Z71.3 Dietary counseling and surveillance; E11.65 Type 2 diabetes mellitus with hyperglycemia; E11.42 Type 2 diabetes mellitus with diabetic polyneuropathy; Z95.5 Presence of coronary angioplasty implant and graft; Z79.899 Other long term (current) drug therapy; Z79.02 Long term (current) use of antithrombotics/antiplatelets; Z79.82 Long term (current) use of aspirin; Z79.84 Long term (current) use of oral hypoglycemic drugs; R20.2 Paresthesia of skin; K21.9 Gastro-esophageal reflux disease without esophagitis; R06.02 Shortness of breath; R07.9 Chest pain, unspecified; R20.0 Anesthesia of skin; F12.10 Cannabis abuse, uncomplicated; F41.9 Anxiety disorder, unspecified; F32.9 Major depressive disorder, single episode, unspecified; F17.210 Nicotine dependence, cigarettes, uncomplicated
CPT/HCPCS: 36415; 70450; 70551; 71045; 71275; 80048; 80061; 80307; 82140; 82533; 82607; 82746; 82962; 84443; 84484; 85025; 85027; 85610; 85730; 86592; 93005; 93306; 93880; 95819; 96361; 96372; 96374; 96375; 96376; 99218; 99285; 99406; J7030; Q9967; A4216; G0378; J2405

== ENCOUNTER 2018-01-18 00:21 | Emergency (ER) | payer MEDICARE, SELFPAY ==
[2018-01-18] VITALS (7 sets, daily range): BP systolic 125–130; BP diastolic 73–86; PULSE 74–93; RESP 12–17; TEMP 36.8; O2SAT 93–98; BMI 31.1
--- NOTE | 2018-01-18 00:36 | EKG12_ITS ---
Test Reason : REPEAT CP Blood Pressure : / mmHG Vent. Rate : 083 BPM Atrial Rate : 083 BPM P-R Int : 172 ms QRS Dur : 096 ms QT Int : 392 ms P-R-T Axes : 051 111 082 degrees QTc Int : 460 ms Sinus rhythm with occasional Premature ventricular complexes Inferior-posterior infarct , age undetermined Abnormal ECG Confirmed by MAXINE LAWSON ([id number]), writer editor WILLEM IGNACIO ([id number]) on 01/31/2018 5:26:09 PM Referred By: LUIS Confirmed By:MAXINE LAWSON
--- NOTE | 2018-01-18 00:37 | RAD_ITS ---
STUDY: X-RAY CHEST REASON FOR EXAM: Male, 52 years old. Chest pain. TECHNIQUE: PA and lateral views of the chest. COMPARISON: 01/08/2018. FINDINGS: There are mild hypoventilatory changes. No focal infiltrate is seen. There is no demonstrated pleural abnormality. Normal size heart. Normal mediastinum and sang. Normal visualized pulmonary arteries. Normal visualized aortic arch and descending thoracic aorta. Normal visualized thoracic spine. Normal visualized ribs, clavicles, and shoulders. There is no demonstrated abnormality of the visualized soft tissue structures of the upper abdomen. RAD/Chest PA and Lateral IMPRESSION: No active pulmonary disease Electronically Signed: Tylor Allison MD at 1:14 EDT Tel , Service support ,
[2018-01-18 00:45] LABS: Absolute Neutrophil Count 3.3 X10^3/uL (2.0-7.7); Basophil# 0.05 X10^3/uL; Basophil% 0.7 % (0-1); Eosinophil# 0.15 X10^3/uL; Hematocrit 46.2 % (40-54); Hemoglobin 16.3 g/dl (13.0-16.5); Lymphocyte % 41.7 % (19-41); Mean Corp Hgb Conc 35.3 g/gl (32-36); Mean Corpuscular Hgb 30.8 pg (27.0-32.0); Mean Corpuscular Volume 87.2 fL (80-94); Mean Platelet Vol. 11.3 fl (6.2-12.0); Monocyte# 0.77 X10^3/uL; Monocyte% 10.4 % (0-10); Neutrophil # 3.33 X10^3/uL (2.7-7.7); Neutrophil % 44.8 % (47-70); POSITIVE COUNT NO; POSITIVE DIFFERENTIAL NO; POSITIVE MORPHOLOGY NO; Platelet Count 172 K/mm3 (150-450); RBC Distribution Width SD 41.9 fl (35.1-43.9); White Blood Count 7.4 K/mm3 (4.4-11.0)
[2018-01-18] MEDS: Aspirin 81 MG TAB.CHEW 324 MG PO (00:58)
[2018-01-18 01:07] LABS: Anion Gap 8 (5-15); BUN 13 mg/dL (7-18); BUN/Creat Ratio 13.7 RATIO (10-20); Calcium,Total 9.7 mg/dL (8.5-10.1); Chloride 99 mmol/L (98-107); Creatinine, Serum 0.95 mg/dL (0.70-1.30); EST Glomerular Filtration Rate 89 mL/min (>60); Est Glom Filt Rate - Afr Amer 107 mL/min (>60); Estimated Creatinine Clearance 96.88 ml/min; Glucose 346 mg/dL (74-106); Potassium 3.8 mmol/L (3.5-5.1); Sodium Level 134 mmol/L (136-145)
--- NOTE | 2018-01-18 01:31 | CT_ITS ---
STUDY: CTA CHEST REASON FOR EXAM: Male, 52 years old. Chest pain for one hour with emesis and diarrhea. History of hypertension RADIATION DOSAGE (If Supplied By Facility): CTDIvol = ( 17.87 ) mGy, DLP = ( 67.05 ) mGycm TECHNIQUE: The examination was performed with the intravenous administration of 100ML ml of Isovue 370 contrast material. Post-processing of the angiographic images was performed, with multiplanar reformation. Individualized dose optimization techniques were used for this CT. COMPARISON: None. FINDINGS: Normal enhancement of the main pulmonary artery and right and left pulmonary arteries. Normal enhancement of the bilateral peripheral pulmonary arteries. There is no demonstrated pulmonary embolism. Normal thoracic aorta and visualized great vessels. There is no demonstrated aortic dissection. Normal heart and pericardium. There are calcifications of the coronary arteries. Normal mediastinum. Normal hilar regions. Normal visualized trachea and bronchi. The lungs are well expanded. There are no pulmonary infiltrates. There are no pleural effusions. Normal chest wall structures. There are degenerative changes of thoracic spine. Normal visualized upper abdomen. CT/CTA Chest W/WO Contrast IMPRESSION: No demonstrated pulmonary embolism. No infiltrate is seen. Electronically Signed: Tylor Allison MD at 2:32 EDT Tel , Service support ,
--- NOTE | 2018-01-18 02:41 | EKG12_ITS ---
Test Reason : CP Blood Pressure : / mmHG Vent. Rate : 091 BPM Atrial Rate : 091 BPM P-R Int : 152 ms QRS Dur : 088 ms QT Int : 368 ms P-R-T Axes : 043 113 078 degrees QTc Int : 452 ms Normal sinus rhythm Normal ECG Confirmed by MAXINE LAWSON ([id number]), editorial project manager WILLEM IGNACIO ([id number]) on 01/31/2018 5:26:31 PM Referred By: LUIS Confirmed By:MAXINE LAWSON
--- NOTE | 2018-01-18 05:06 | ED.DCSUM_ITS ---
- ER Visit Summary Date of Service: 01/18/18 Chief Complaint: Chest pain History of Present Illness: The patient is a 52 M who presents with chest pain. It began 1-2 hours prior to presentation. He describes it as sharp and stabbing. He currently rates it as 6 out of 10. No exacerbating or relieving factors. He also complains of shortness of breath. He also reports nausea vomiting and diarrhea today. No near syncope or syncope. He also complains of congestion and sore throat. He was admitted in October for chest pain nausea vomiting and diarrhea and had a cardiac catheterization. He also had a recent admit for transient confusion and was complaining of very similar chest pain at that time as well. Physical Examination: Afebrile vitals are stable Heart regular rate and rhythm Lungs are clear Abdomen soft Extremities nontender 2+ radial pulses Alert and oriented Test Results: EKG shows sinus rhythm at a rate of 91 with no acute ischemic changes. Repeat EKG unchanged. Laboratory studies unremarkable including negative troponin. Repeat troponin remains negative. Chest x-ray shows no acute process and CTA of the chest is also negative. Emergency Department Course and Treatment: Patient presents with atypical chest pain with 2 recent admissions with similar symptoms. He has a normal repeat EKG and troponin. I do feel he is safe for discharge and outpatient follow-up as I feel this is very unlikely to be an acute coronary syndrome. Patient discharged. Treatment Plan: [] Disposition: Discharge Impression: Atypical chest pain This note was generated with Usound dictation software. It may contain incorrect words, spelling, and punctuation that were not noted in review of the chart prior to signing ED Disposition - Plan for ED Patient: Chief Complaint: Chest Pain Referrals: Trang He MD [Primary Care Provider] -
--- NOTE | 2018-01-18 05:06 | ED.DEP ---
ED Disposition - Plan for ED Patient: Chief Complaint: Chest Pain Instructions: ED Chest Pain Atypical Unkn Cause Referrals: Trang He MD [Primary Care Provider] -
== END 2018-01-18 05:16 | disposition home or self-care (01) ==
LOC: ED 00:38
PROVIDERS: Emergency Provider Emergency Medicine; Family Provider Internal Medicine; PCP Internal Medicine
DX: R07.89 Other chest pain (principal); I25.10 Atherosclerotic heart disease of native coronary artery without angina pectoris; I25.2 Old myocardial infarction; I10 Essential (primary) hypertension; E78.00 Pure hypercholesterolemia, unspecified; E11.9 Type 2 diabetes mellitus without complications; Z79.82 Long term (current) use of aspirin; Z79.84 Long term (current) use of oral hypoglycemic drugs; Z79.899 Other long term (current) drug therapy; Z72.0 Tobacco use
CPT/HCPCS: 36415; 71046; 71275; 80048; 84484; 85025; 93005; 99285; Q9967; A4216

== ENCOUNTER 2018-02-28 22:06 | Emergency (ER) | payer MEDICARE, SELFPAY ==
[2018-02-28 22:07] VITALS: PULSE 84; RESP 15; TEMP 36.9; BMI 31.1
--- NOTE | 2018-02-28 22:07 | ED.RN ---
RN CALLED FOR EKG, PULLED OLD EKG'S FOR
[2018-02-28 22:11] VITALS: BP 114/58; PULSE 81; RESP 18; O2SAT 95
--- NOTE | 2018-02-28 22:39 | EKG12_ITS ---
Test Reason : CP Blood Pressure : / mmHG Vent. Rate : 082 BPM Atrial Rate : 082 BPM P-R Int : 160 ms QRS Dur : 090 ms QT Int : 388 ms P-R-T Axes : 034 112 084 degrees QTc Int : 453 ms Normal sinus rhythm Low voltage QRS (limb leads) Confirmed by IVETTE GIBSON, RON ([id number]), map editor WILLEM IGNACIO ([id number]) on 03/03/2018 1:24:31 PM Referred By: RUY Confirmed By:RON STEELE MD
--- NOTE | 2018-02-28 22:40 | ED.VISSUMM ---
- ER Visit Summary Date of Service: 02/28/18 Chief Complaint: [] Chest pain History of Present Illness: The patient is a 52 M describes a central chest pain since 5:00 this morning. Gradual onset continuous sharp pain. Current severity is mild. Worsened by nothing. Relieved by nothing. He did try to smoke marijuana to help with the pain throughout the day. He has had some dry heaves today but no vomiting. He has had some nausea. He has had on and off loose bowel movements a couple times per day for the last week. He does have history of coronary artery disease with 2 previous stents. He has frequent visits for chest pain. He took aspirin today for tablets. He also tried 2 nitroglycerin but states it never works for him. There is no relief. He had a heart cath in October of this year that showed his left circumflex and right coronary artery stents were patent. He had a proximal diagonal small vessel with severe disease. In December of this year he had a CTA of his chest that showed nothing acute. He states he gets chest pain 1-2 times per month chronically. Physical Examination: [] Vital signs reviewed General: Well-nourished well-developed Head: Normocephalic atraumatic Eyes: Pupils equal round and reactive to light extraocular movements intact ENT: TMs clear no hemotympanum no trauma Neck: Nontender full range of motion Cardiovascular: Regular rate rhythm no murmurs normal S1-S2 Respiratory: No distress clear to auscultation bilaterally chest nontender Abdomen: Soft nontender nondistended normal bowel sounds no masses Back: Nontender no CVA tenderness Extremities: Nontender active range of motion ?4 extremities no trauma Skin: Normal color no trauma Neuro alert oriented cranial nerves II through XII intact normal strength sensation reflexes Test Results: [] Emergency Department Course and Treatment: [] EKG shows sinus rhythm at a rate rate of 82 without STEMI pattern. No acute ischemia. Unchanged from prior. Chest x-ray lab work obtained. Patient given IV morphine and declined nitroglycerin. He took aspirin at home. He was given IV Zofran. He is resting comfortably. CBC is normal except hemoglobin 16.7. Chemistries normal except glucose 297. This is chronically elevated secondary to diabetes. Troponin is negative less than 0.01. Chest x-ray shows nothing acute. At this time I have a low suspicion for acute coronary syndrome PE or dissection. This could be costochondritis related. The patient has a very small vessel that does have some significant disease on his heart cath. This is not something that can be stented apparently. I do not think he is having an acute infarct with a negative troponin. He has been having discomfort all day. I feel he can use anti-inflammatories and follow-up as an outpatient. He will return if he worsens. I do not think he needs a CTA of his chest. He just had one recently which was negative Treatment Plan: [] Disposition: [] Impression: [] Recurrent chest pain Nausea with dry heaves This note was generated with [employer] Evian dictation software. It may contain incorrect words, spelling, and punctuation that were not noted in review of the chart prior to signing ED Disposition - Plan for ED Patient: Chief Complaint: Chest Pain Referrals: Trang He MD [Primary Care Provider] -
[2018-02-28 22:50] LABS: Absolute Lymphocyte Count 1.85 X10^3/ul (0.83-4.51); Basophil# 0.02 X10^3/uL; Basophil% 0.3 % (0-1); Eosinophil# 0.12 X10^3/uL; Eosinophils% 1.9 % (0-5); Hematocrit 47.2 % (40-54); Hemoglobin 16.7 g/dl (13.0-16.5); Lymphocyte # 1.85 X10^3/ul (4.0); Mean Corp Hgb Conc 35.4 g/gl (32-36); Mean Corpuscular Volume 87.7 fL (80-94); Mean Platelet Vol. 12.2 fl (6.2-12.0); Monocyte# 0.36 X10^3/uL; Monocyte% 5.7 % (0-10); Neutrophil # 4.02 X10^3/uL (2.7-7.7); Neutrophil % 63.1 % (47-70); Platelet Count 158 K/mm3 (150-450); RBC Distribution Width SD 41.2 fl (35.1-43.9); Red Blood Count 5.38 M/mm3 (4.6-6.2); White Blood Count 6.4 K/mm3 (4.4-11.0)
--- NOTE | 2018-02-28 22:50 | RAD_ITS ---
STUDY: X-RAY CHEST REASON FOR EXAM: Male, 52 years old. Chest pain TECHNIQUE: Frontal and lateral views of the chest COMPARISON: 01/18/2018 FINDINGS: The lungs are clear. There are no pleural effusions. There is no pneumothorax. The heart is normal in size. The visualized osseous structures are within normal limits. RAD/Chest PA and Lateral IMPRESSION: No acute thoracic pathology. Electronically Signed: Bladimir Palencia, at 23:07 EDT Tel , Service support ,
[2018-02-28 22:51] LABS: POSITIVE COUNT NO; POSITIVE DIFFERENTIAL NO; POSITIVE MORPHOLOGY NO
[2018-02-28] MEDS: Ondansetron 4 MG/2 ML Vial IV (22:57)
[2018-02-28] MEDS: Morphine 4 MG/ML Syringe IV (22:57)
[2018-02-28 22:58] LABS: Anion Gap 10 (5-15); BUN 12 mg/dL (7-18); BUN/Creat Ratio 12.6 RATIO (10-20); Calcium,Total 9.4 mg/dL (8.5-10.1); Chloride 101 mmol/L (98-107); Creatinine, Serum 0.95 mg/dL (0.70-1.30); EST Glomerular Filtration Rate 88 mL/min (>60); Est Glom Filt Rate - Afr Amer 107 mL/min (>60); Estimated Creatinine Clearance 99.84 ml/min; Glucose 297 mg/dL (74-106); Potassium 3.8 mmol/L (3.5-5.1); Sodium Level 138 mmol/L (136-145)
--- NOTE | 2018-02-28 23:18 | ED.DEP ---
ED Disposition - Plan for ED Patient: Disposition: Home or Assisted Living Chief Complaint: Chest Pain Instructions: ED Chest Pain NonCardiac Prescriptions: Ondansetron [Zofran Odt] 4 mg PO Q8H PRN PRN #10 tab PRN Reason: Nausea Referrals: Trang He MD [Primary Care Provider] - Zach Johnson MD [STAFF PHYSICIAN] -
[2018-02-28 23:23] VITALS: BP 147/90; PULSE 80; RESP 22; O2SAT 97
[2018-02-28 23:24] VITALS: BP 139/88; PULSE 77; RESP 21; O2SAT 96
--- NOTE | 2018-02-28 23:32 | NURSING ---
PT UNDERSTANDS D/C INSTRUCTIONS, NO FURTHER QUESTIONS, SENT HOME WITH RX FOR ZOFRAN.
== END 2018-02-28 23:33 | disposition home or self-care (01) ==
PROVIDERS: Emergency Provider Emergency Medicine; Family Provider Internal Medicine; PCP Internal Medicine
DX: R07.9 Chest pain, unspecified (principal); R11.0 Nausea; E11.65 Type 2 diabetes mellitus with hyperglycemia; I25.10 Atherosclerotic heart disease of native coronary artery without angina pectoris; I25.2 Old myocardial infarction; I10 Essential (primary) hypertension; E78.00 Pure hypercholesterolemia, unspecified; E66.9 Obesity, unspecified; Z68.31 Body mass index [BMI] 31.0-31.9, adult; Z79.82 Long term (current) use of aspirin; Z79.01 Long term (current) use of anticoagulants; Z79.84 Long term (current) use of oral hypoglycemic drugs; Z79.899 Other long term (current) drug therapy; Z72.0 Tobacco use
CPT/HCPCS: 71046; 80048; 84484; 85025; 93005; 96374; 96375; 99284; A4216; J2405

== ENCOUNTER 2018-04-29 18:35 | Emergency (ER) | payer MEDICARE, SELFPAY ==
[2018-04-29 18:36] VITALS: BP 149/100; PULSE 125; RESP 16; TEMP 36.6; O2SAT 94; BMI 30.2
--- NOTE | 2018-04-29 19:21 | EKG12_ITS ---
Test Reason : CP Blood Pressure : / mmHG Vent. Rate : 115 BPM Atrial Rate : 115 BPM P-R Int : 146 ms QRS Dur : 080 ms QT Int : 334 ms P-R-T Axes : 078 112 077 degrees QTc Int : 462 ms Sinus tachycardia Right axis deviation Possible Right ventricular hypertrophy Abnormal ECG Confirmed by MAXINE LAWSON ([id number]), assistant film editor WILLEM IGNACIO ([id number]) on 05/03/2018 2:21:38 PM Referred By: Confirmed By:MAXINE LAWSON
--- NOTE | 2018-04-30 00:36 | ED.VISSUMM ---
- ER Visit Summary Date of Service: 04/30/18 Chief Complaint: Neck and back pain History of Present Illness: The patient is a [address] He and Dr. Zach Johnson. He reports that he slid out of a truck 2 days ago. He did not fall. However, he twisted awkwardly and he reports that he has neck and back pain that have been present since then. Reports the back pain is 8 out of 10 severity currently and 10 out of 10 at worst. He describes it as a sharp pain. It is increased with movement. There is no relieving factors. There are no radiation to his legs. No numbness or weakness in his legs. Patient reports that his neck pain is 10 out of 10 with movement. Is 5 out of 10 at rest and after back and body. Patient also reports that he has felt rundown for the past 2 weeks. He had an episode of chest pain at 430 this morning awoke him from sleep. Last approximately 3 minutes. He reports that he has felt mildly short of breath. His chronic cough is unchanged. He has a headache this 2 out of 10 severity. Physical Examination: Vitals: Stable. Afebrile. Neck: Moderate diffuse tenderness palpation over his entire C-spine. No point tenderness. Full ROM without difficulty. Back: Mild diffuse sinus palpation over his entire lumbar spine. No point tenderness. General: A&O x 3. NAD. Cardiovascular exam: Regular rate and rhythm, no murmur, rub or gallop. Respiratory exam: Chest nontender. No crepitus. Clear to auscultation bilaterally. No wheezes or stridor. Abdominal exam: Soft, nontender, nondistended, normal bowel sounds. No pain in RUQ or LUQ specifically. No peritoneal signs. Extremity: Atraumatic. No pain with range of motion. Test Results: I had written for labs and x-rays. Patient did have an EKG is sinus tach at [address] changes. Emergency Department Course and Treatment: Patient asked for pain medications. I wrote for a dose of Tylenol. He became incensed and walked out of the emergency department. Treatment Plan: Patient left prior to completion of treatment. Disposition: Elopement Impression: 1. Neck/back pain. 2. Chest pain. 3. Diarrhea. 4. Elopement. This note was generated with Dragon dictation software. It may contain incorrect words, spelling, and punctuation that were not noted in review of the chart prior to signing ED Disposition - Plan for ED Patient: Disposition: Against Medical Advice Chief Complaint: Back Referrals: Trang He MD [Primary Care Provider] -
== END 2018-04-29 19:34 | disposition left against medical advice (07) ==
PROVIDERS: Emergency Provider Emergency Medicine; Family Provider Internal Medicine; PCP Internal Medicine
DX: M54.2 Cervicalgia (principal); M54.5 Low back pain; R07.9 Chest pain, unspecified; R19.7 Diarrhea, unspecified; Z53.21 Procedure and treatment not carried out due to patient leaving prior to being seen by health care provider; I25.10 Atherosclerotic heart disease of native coronary artery without angina pectoris; I10 Essential (primary) hypertension; E78.00 Pure hypercholesterolemia, unspecified; E11.9 Type 2 diabetes mellitus without complications; K21.9 Gastro-esophageal reflux disease without esophagitis; F32.9 Major depressive disorder, single episode, unspecified; Z79.82 Long term (current) use of aspirin; Z79.01 Long term (current) use of anticoagulants; Z79.84 Long term (current) use of oral hypoglycemic drugs; Z79.899 Other long term (current) drug therapy; Z72.0 Tobacco use
CPT/HCPCS: 93005; 99285; A4216

== ENCOUNTER 2018-08-09 14:13 | Emergency (ER) | payer MEDICARE, SELFPAY ==
[2018-08-09 14:16] VITALS: BP 137/81; PULSE 79; RESP 16; TEMP 36.9; O2SAT 97; BMI 32.4
[2018-08-09] MEDS: Diphth,Pertuss(Acell),Tet Vac 0.5 ML Vial IM (14:44)
--- NOTE | 2018-08-09 15:30 | ED.DCSUM_ITS ---
- ER Visit Summary Date of Service: 08/09/18 Chief Complaint: Facial injury status post fall History of Present Illness: The patient is a 52 M who slipped in mud. Sustained a laceration lower lip. He states he was dazed. He is on no anticoagulant. He complains of mild headache. Denies neck pain. Denies paresthesia, anesthesia or motor weakness. There is trouble with speech or swallowing. Denies cardiac respiratory symptoms. Tetanus is unknown. No antibiotic allergies. Please read written note for complete detail Physical Examination: Vital signs noted and blood pressure is slightly elevated 131/81. Head is atraumatic normocephalic. Pupils are equal round reactive. Extraocular muscles are intact. TMs are pearly white with landmarks noted. Nares patent with no drainage. Posterior pharynx without erythema or exudate. Uvula is midline. There is no dysphonia or dysphasia. There is a stellate laceration involving the vermilion portion of the lip and buccal surface that is 3.5 cm in total length. There is a laceration under the lip with involvement of the vermilion border. There is no TMJ tenderness. There is no evidence of malocclusion. There is no clinical findings of basal skull fracture. Trachea is midline. There is no stridor with auscultation of the neck. C-spine was cleared per Nexus criteria. Heart is regular without murmur, gallop or rub. S1 and S2 are normal. Lungs are clear to auscultation with good movement of air bilaterally. Chest is nontender to palpation. Abdomen is soft nontender. Is no pain the patient the pelvis. There is no evidence of trauma to the upper lower extremity. GCS is 15. Patient is alert and oriented ?3. Motor is 5/5. Sensation is intact. DTRs are symmetric without clonus or Babinski. Cranial nerves II through XII are intact. Finger to nose to finger was performed adequately. Test Results: None were obtained or indicated. Emergency Department Course and Treatment: Per the [facility] CT head rule radiologic imaging is not indicated. Patient's C-spine was cleared per Nexus criteria. Patient has a laceration which will require repair. Placed bilateral submental nerve blockwith 1% lidocaine. The laceration was irrigated between 50 cc of normal saline. The vermilion portion of the lip was closed using 6-0 Ethilon. 3 simple sutures were placed. The buccal surface was closed using 4-0 Vicryl. Simple interrupted sutures were placed. The skin and laceration vermilion border was closed using 6-0 Ethilon. 4 simple interrupted sutures were placed. Treatment Plan: Wound care, laceration repair and follow-up with PCP next week. Patient already scheduled for appointment. Disposition: Discharged home in stable improved condition with home with instructions for laceration and concussion Impression: 1. Concussion without loss of conscious 2. Through and through lip laceration involving the vermilion border This note was generated with [employer] dictation software. It may contain incorrect words, spelling, and punctuation that were not noted in review of the chart prior to signing ED Disposition - Plan for ED Patient: Disposition: Home or Assisted Living Chief Complaint: Fall Instructions: ED Laceration Mouth, ED Laceration Facial Sutr Tape, ED Concussion Prescriptions: Penicillin Vk [Pen-Vee K 250MG] 500 mg PO 4X/DAY #20 tablet Referrals: Trang He MD [Primary Care Provider] - Keep Jhonny appointment Additional Instructions: Your prescription was electronically transmitted to [facility] pharmacy.
[2018-08-09] MEDS: Penicillin Vk 250 MG Tablet 500 MG PO (15:51)
--- OUTSIDE RECORDS SUMMARY | 2018-11-11 02:41 | XMS RPT_ITS ---
:1965 Author Organization OHIP Support Name Relationship Address Phone D Unavailable Unavailable Unavailable D Unavailable Unavailable Unavailable GROSJEAN KRISSY Unavailable [address] + [place] [address] KEATLEY, SHOAIB Unavailable Unavailable + KEATLEY, SHOAIB Unavailable Unavailable + KEATLEY, SHOAIB Unavailable Unavailable + D Unavailable Unavailable Unavailable GROSJEAN, KRISSY Unavailable Unavailable + KEATLEY, JANELLE Unavailable [address] + [place] [address] D Unavailable Unavailable Unavailable KEATLEY, JANELLE Unavailable [address] + [place] [address] D Unavailable Unavailable Unavailable KEATLEY, JANELLE Unavailable [address] + [place] [address] D Unavailable Unavailable Unavailable KEATLEY, JANELLE Unavailable [address] + [place] [address] D Unavailable Unavailable Unavailable KEATLEY, JANELLE Unavailable [address] + [place] [address] D Unavailable Unavailable Unavailable KEATLEY, JANELLE Unavailable [address] + [place] [address] D Unavailable Unavailable Unavailable KEATLEY, JANELLE Unavailable [address] + [place] [address] D Unavailable Unavailable Unavailable KEATLEY, JANELLE Unavailable [address] + [place] [address] D Unavailable Unavailable Unavailable KEATLEY, JANELLE Unavailable [address] + [place] [address] D Unavailable Unavailable Unavailable KEATLEY, JANELLE Unavailable [address] + [place] [address] D Unavailable Unavailable Unavailable KEATLEY, JANELLE Unavailable [address] + [place] [address] D Unavailable Unavailable Unavailable KEATLEY, JANELLE Unavailable [address] + [place] [address] D Unavailable Unavailable Unavailable KEATLEY, JANELLE Unavailable [address] + [place] [address] D Unavailable Unavailable Unavailable KEATLEY, JANELLE Unavailable [address] + [place] [address] Care Team Providers Name Role Phone [facility] Unavailable Ramon Interiano Attending Unavailable [facility] Unavailable White, Bertha Admitting Unavailable Grant Larosn Attending Unavailable White, Bertha Attending Unavailable [facility] Unavailable White, Bertha Admitting Unavailable Sementi, Samanta Attending Unavailable [facility] Unavailable Semenaimee, Samanta Consulting Unavailable LUCY Guzman Attending Unavailable Antonio Sigalaril Attending Unavailable White, Bertha Referring Unavailable Tye Lawson Attending Unavailable White, Bertha Referring Unavailable [facility] Unavailable Michael, Stefano Admitting Unavailable Juan Hartan Consulting Unavailable Pardeep Gutierrez Attending Unavailable Michael, Stefano Admitting Unavailable [facility] Unavailable Hart, Dhaval Consulting Unavailable Cesar Amaral Attending Unavailable Michael, Stefano Consulting Unavailable Michael, Stefano Admitting Unavailable Pardeep Gutierrez Attending Unavailable [facility] Unavailable Juan Hartan Consulting Unavailable Pardeep Gutierrez Consulting Unavailable [facility] Unavailable Perico Mueller Attending Unavailable Yony Sigala Attending Unavailable Pardeep Gutierrez Referring Unavailable Yony Sigala Attending Unavailable Michael, Stefano Referring Unavailable [facility] Unavailable Jonathan Tariq Attending Unavailable [facility] Unavailable Raheem Stearns Attending Unavailable YOSI GARCIA DO Attending Unavailable SHAE GIBSON, LM Lopez JR. Primary Care Unavailable GANTA, ASCENCION Attending Unavailable GANTA, ASCENCION Referring Unavailable GANTA, ASCENCION Attending Unavailable GANTA, ASCENCION Referring Unavailable SABRA MARTINEZ (SENIOR MEDICAL TRANSCRIPTIONIST) Attending Unavailable SHERICE MARQUEZ (PA) Attending Unavailable GANTA, ASCENCION Referring Unavailable GANTA, ASCENCION Attending Unavailable GANTA, ASCENCION Referring Unavailable GANTA, ASCENCION Referring Unavailable GANTA, ASCENCION Referring Unavailable GANTA, ASCENCION Attending Unavailable ZACH REID Attending Unavailable ZACH REID Referring Unavailable PROBLEMS PROBLEMS DATE TYPE CONDITION / CODE ATTENDING STATUS SOURCE 12/07/2016 Active Type 2 diabetes NA Active [place] mellitus with [facility] Main diabetic [place] neuropathy, Repository unspecified / E11.40(ICD-10) 12/07/2016 Active Type 2 diabetes NA Active [place] mellitus with [facility] hyperglycemia / [place] E11.65(ICD-10) Repository 12/03/2014 Active Hyperlipidemia, NA Active [place] unspecified / Clinic Main E78.5(ICD-10) [place] Repository 03/12/2018 Active Other assisted NA Active [place] (current) drug [facility] therapy / [place] Z79.899(ICD-10) Repository 03/12/2018 Active Unspecified injury NA Active [place] of right elbow, [facility] initial encounter / [place] S59.901A(ICD-10) Repository 02/17/2018 Unknown R07.9 - Chest pain, [place], [place] Active [place] unspecified / Community R07.9(ICD-10) Hospital Repository 02/17/2018 Unknown R07.89 - Other Jovon, Yony Active [place] chest pain / Community R07.89(ICD-10) Hospital Repository 02/17/2018 Unknown I10 - Essential Jovon, [place] Active [place] (primary) Community hypertension / Hospital I10(ICD-10) Repository 02/17/2018 Unknown I25.2 - Old [place]ovon, [place] Active [place] myocardial Community infarction / Hospital I25.2(ICD-10) Repository 12/17/2017 Admitting Unknown / ZACH REID Active [facility] diagnosis [facility](Unknown[facility] Repository 12/27/2017 Unknown R06.02 - Shortness Tye Lawson Active [place] of breath / Community R06.02(ICD-10) Hospital Repository PROCEDURES PROCEDURES No Procedure Records FoundRESULTS RESULTS OBSOLETE Observed: 09/05/2018 Status: COMPLETED Source: [place] 12:00 AM [facility] REPOSITORY Refill (FAMPWS) RAND MORALES ([id number]) 1965 M Date Time Provider Department 09/05/18 ASCENCION LERMA FAMPWS During your visit today, we recorded the following information about you: Anat Inman Ma 09/05/2018 11:42 AM Signed Patient has been identified by name and date of : Yes Pharmacy phones for refill(s): Pending Prescriptions Disp Refills ASPIRIN 81 MG TABLET,DELAYED RELEASE 90 tablet 3 Sig: Take 1 tablet by mouth once daily. RODERICK: No PANTOPRAZOLE 40 MG TABLET,DELAYED RELEASE 90 tablet 3 Sig: Take 1 tablet by mouth once daily. RODERICK: No ATORVASTATIN 80 MG TABLET 90 tablet 3 Sig: Take 1 tablet by mouth once daily. RODERICK: No LISINOPRIL 10 MG TABLET 90 tablet 3 Sig: Take 1 tablet by mouth once daily. RODERICK: No METFORMIN 500 MG TABLET 270 tablet 3 Sig: TAKE 2 TABLETS IN THE MORNING ~301 TAKE 1 TABLET IN THE EVENING RODERICK: No Date of last office visit in primary care: 07/07/18 Last 2 Encounter Wt Readings: Date: Wt: 07/07/2018 102.5 kg (226 lb) 03/12/2018 103.9 kg (229 lb) Previous labs/tests for medication: Diabetes: Hemoglobin A1C (%) Date Value 03/12/2018 10.8 11/16/2016 10.9 Hemoglobin A1C (POCT) (%) Date Value 07/07/2018 11.7 Cholesterol: HDL Cholesterol (mg/dL) Date Value 03/12/2018 33 LDL Cholesterol (mg/dL) Date Value 03/12/2018 Unable to calculate due to increased Triglycerides. See LDL-Chol, Direct. ALT (U/L) Date Value 11/16/2016 16 Non HDL Cholesterol (mg/dL) Date Value 03/12/2018 175 Blood Pressure: BUN (mg/dL) Date Value 11/16/2016 12 Sodium (mmol/L) Date Value 11/16/2016 139 Last 1 Encounter BP Readings: Date: BP: 07/07/2018 110/82 Please advise. Thank you. Anat Storm Knox Allergies As of Date: 09/05/2018 (No Known Allergies) Date Reviewed: 07/07/2018 Reviewed by: Adrienne Montoya LPN - Fully Assessed Reason for Visit: Refill Request [94] Visit Diagnoses:Gastroesophageal reflux disease without esophagitis [K21.9] Mixed hyperlipidemia [E78.2] Essential hypertension [I10] Uncontrolled type 2 diabetes mellitus with diabetic neuropathy, without long-term current use of insulin (HCC) [E11.40, E11.65] Order(s):aspirin, enteric coated (ASPIRIN, ENTERIC COATED) 81 mg EC tabletTake 1 tablet by mouth once daily.Disp: 90 tabletRfl: [address] (PROTONIX) 40 mg tabletTake 1 tablet by mouth once daily.Disp: 90 tabletRfl: 3 atorvastatin (LIPITOR) 80 mg tabletTake 1 tablet by mouth once daily.Disp: 90 tabletRfl: 3 lisinopril (ZESTRIL, PRINIVIL) 10 mg tabletTake 1 tablet by mouth once daily.Disp: 90 tabletRfl: 3 metFORMIN (GLUCOPHAGE) 500 mg tabletTAKE 2 TABLETS IN THE MORNING ~301 TAKE 1 TABLET IN THE EVENINGDisp: 270 tabletRfl: 3 Prescriptions as of 09/05/2018 Sig: ASPIRIN 81 MG TABLET,DELAYED * Take 1 tablet by mouth once d* PANTOPRAZOLE 40 MG TABLET,DEL* Take 1 tablet by mouth once d* ATORVASTATIN 80 MG TABLET Take 1 tablet by mouth once d* LISINOPRIL 10 MG TABLET Take 1 tablet by mouth once d* METFORMIN 500 MG TABLET TAKE 2 TABLETS IN THE MORNING* EMPAGLIFLOZIN 25 MG TABLET Take 1 tablet by mouth daily * HYDROXYZINE PAMOATE 50 MG CAP* Take 1 capsule by mouth three* GLIMEPIRIDE 4 MG TABLET Take 1 tablet by mouth twice * CLOPIDOGREL 75 MG TABLET TAKE 1 TABLET BY MOUTH ONCE D* BUPROPION XL 300 MG 24 HR TAB TAKE 1 TABLET BY MOUTH ONCE D* CARVEDILOL 6.25 MG TABLET TAKE ONE (1) TABLET BY MOUTH * BASAGLAR KWIKPEN U-100 INSULI* INJECT 10 UNITS SUBCUTANEOUSL* Patient not taking: Reported on 07/07/2018 ETODOLAC 200 MG CAPSULE TAKE ONE (1) CAPSULE BY MOUTH* BASAGLAR KWIKPEN U-100 INSULI* INJECT 10 UNITS SUBCUTANEOUSL* Patient not taking: Reported on 07/07/2018 METFORMIN 500 MG TABLET TAKE 2 TABLETS IN THE MORNING* Patient not taking: Reported on 07/07/2018 NICOTINE 21 MG/24 HR DAILY TR* Apply 1 Patch as directed angel* ESCITALOPRAM 20 MG TABLET Take 1 tablet by mouth once d* PEN NEEDLE, DIABETIC 31 GAUGE* 1 Each once daily. LORATADINE 10 MG TABLET Take 1 tablet by mouth once d* BUSPIRONE 5 MG TABLET Take 1 tablet by mouth three * RANITIDINE 150 MG TABLET Take 1 tablet by mouth daily * BLOOD-GLUCOSE METER KIT Glucose Meter of Choice - Kit* Problem List As Of Date 09/05/2018 Noted Resolved Type 1 diabetes mellitus with diabetic neuropat*INVALID FOR*05/19/2017 Hyperlipidemia [E78.5] INVALID FOR* More... HTN (hypertension) [I10] INVALID FOR* More... Back pain [M54.9] INVALID FOR* H/O degenerative disc disease [Z87.39] INVALID FOR* Right shoulder pain [M25.511] INVALID FOR* Coronary artery disease involving ek[place] heart *INVALID FOR* More... Uncontrolled type 2 diabetes mellitus with diab*INVALID FOR* More... Prescriptions ordered this encounter Disp Refills Start End ASPIRIN 81 MG TABLET,DELAYED RELEASE 90 t* 3 09/05/2018 Route: ORAL Sig: Take 1 tablet by mouth once daily. PANTOPRAZOLE 40 MG TABLET,DELAYED RE* 90 t* 09/05/2018 Route: ORAL Sig: Take 1 tablet by mouth once daily. ATORVASTATIN 80 MG TABLET 90 t* 3 09/05/2018 Route: ORAL Sig: Take 1 tablet by mouth once daily. LISINOPRIL 10 MG TABLET 90 t* 3 09/05/2018 Route: ORAL Sig: Take 1 tablet by mouth once daily. METFORMIN 500 MG TABLET 270 * 3 09/05/2018 Sig: TAKE 2 TABLETS IN THE MORNING ~301 TAKE 1 TABLET IN THE EVENING Medications Discontinued During This Encounter aspirin, enteric coated (ASPIRIN, EN* 90 t* 0 06/08/2018 09/05/2018 Route: ORAL Sig: TAKE 1 TABLET BY MOUTH ONCE DAILY Disc: Reason for discontinue is not on file. pantoprazole DR (PROTONIX) 40 mg tab* 90 t* 0 06/08/2018 09/05/2018 Route: ORAL Sig: TAKE 1 TABLET BY MOUTH ONCE DAILY Disc: Reason for discontinue is not on file. atorvastatin (LIPITOR) 80 mg tablet 90 t* 0 06/08/2018 09/05/2018 Route: ORAL Sig: TAKE 1 TABLET BY MOUTH ONCE DAILY Disc: Reason for discontinue is not on file. lisinopril (ZESTRIL, PRINIVIL) 10 mg* 90 t* 0 06/08/2018 09/05/2018 Route: ORAL Sig: TAKE 1 TABLET BY MOUTH ONCE DAILY Disc: Reason for discontinue is not on file. metFORMIN (GLUCOPHAGE) 500 mg tablet 90 t* 5 04/18/2018 09/05/2018 Sig: TAKE 2 TABLETS IN THE MORNING ~301 TAKE 1 TABLET IN THE EVENING Disc: Reason for discontinue is not on file. Encounter Status:Closed by ASCENCION LERMA MD on 09/05/18 EMERGENCY DEPARTMENT Observed: 08/09/2018 Status: F Source: [place] SUMMARY 3:33 PM [facility] REPOSITORY [facility] Medical Records Department [address] [place] [id number] Emergency Department Summary 08/09/18 1525 MR#: [id number] Acct: [id number] Name: RAND MORALES Rep #: [id number] : 1965 52 From: Ramon Interiano MD PCP: Ascencion Lerma MD Status: REG ER - ER Visit Summary Date of Service: 08/09/18 Chief Complaint: Facial injury status post fall History of Present Illness: The patient is a 52 M who slipped in mud. Sustained a laceration lower lip. He states he was dazed. He is on no anticoagulant. He complains of mild headache. Denies neck pain. Denies paresthesia, anesthesia or motor weakness. There is trouble with speech or swallowing. Denies cardiac respiratory symptoms. Tetanus is unknown. No antibiotic allergies. Please read written note for complete detail Physical Examination: Vital signs noted and blood pressure is slightly elevated 131/81. Head is atraumatic normocephalic. Pupils are equal round reactive. Extraocular muscles are intact. TMs are pearly white with landmarks noted. Nares patent with no drainage. Posterior pharynx without erythema or exudate. Uvula is midline. There is no dysphonia or dysphasia. There is a stellate laceration involving the vermilion portion of the lip and buccal surface that is 3.5 cm in total length. There is a laceration under the lip with involvement of the vermilion border. There is no TMJ tenderness. There is no evidence of malocclusion. There is no clinical findings of basal skull fracture. Trachea is midline. There is no stridor with auscultation of the neck. C-spine was cleared per Nexus criteria. Heart is regular without murmur, gallop or rub. S1 and S2 are normal. Lungs are clear to auscultation with good movement of air bilaterally. Chest is nontender to palpation. Abdomen is soft nontender. Is no pain the patient the pelvis. There is no evidence of trauma to the upper lower extremity. GCS is 15. Patient is alert and oriented 3. Motor is 5/5. Sensation is intact. DTRs are symmetric without clonus or Babinski. Cranial nerves II through XII are intact. Finger to nose to finger was performed adequately. Test Results: None were obtained or indicated. Emergency Department Course and Treatment: Per the [place] CT head rule radiologic imaging is not indicated. Patient's C-spine was cleared per Nexus criteria. Patient has a laceration which will require repair. Placed bilateral submental nerve blockwith 1% lidocaine. The laceration was irrigated between 50 cc of normal saline. The vermilion portion of the lip was closed using 6-0 Ethilon. 3 simple sutures were placed. The buccal surface was closed using 4-0 Vicryl. Simple interrupted sutures were placed. The skin and laceration vermilion border was closed using 6-0 Ethilon. 4 simple interrupted sutures were placed. Treatment Plan: Wound care, laceration repair and follow-up with PCP next week. Patient already scheduled for appointment. Disposition: Discharged home in stable improved condition with home with instructions for laceration and concussion Impression: 1. Concussion without loss of conscious 2. Through and through lip laceration involving the vermilion border This note was generated with Sciona dictation software. It may contain incorrect words, spelling, and punctuation that were not noted in review of the chart prior to signing ED Disposition - Plan for ED Patient: Disposition: Home or Assisted Living Chief Complaint: Fall Instructions: ED Laceration Mouth, ED Laceration Facial Sutr Tape, ED Concussion Prescriptions: Penicillin Vk [Pen-Vee K 250MG] 500 mg PO 4X/DAY #20 tablet Referrals: Ascencion Lerma MD [Primary Care Provider] - Keep Jhonny appointment Additional Instructions: Your prescription was electronically transmitted to [facility] pharmacy. What to do if you have Problems For any increased pain, shortness of breath, bleeding, nausea or vomiting, chest pain, or any unexpected problems, contact your Primary Care Provider. Call [facility] ([phone]) or report to the closest Emergency Room. Call 911 if necessary. 08/09/18 1533 <Electronically signed by Ramon Interiano MD> Date Ramon Interiano MD Cosigner Signature (If Indicated): Date CC: Ascencion Lerma MD PROGRESS Observed: 08/09/2018 Status: COMPLETED Source: [place] 2:40 PM [facility] [place] REPOSITORY O ID: [id number] Author: Rosalba Katz [facility] Service: (none) Author Type: Registered Nurse Type: Progress Notes Filed: 08/09/2018 2:55 PM Note Text: PRIMARY CARE COORDINATION FOLLOW-UP NOTE Provider Action/FYI Facial/mouth laceration sutured in [facility] ER. Will F/U for suture removal and diabetic med review. Patient identified by name and date of . YES Spoke to mother, Zunilda. Summary: Pt is currently in [facility] ER with laceration to lip thru and thru after falling face first on a machine he was moving. Concerns: Mother states pt HAS been taking insulin and meds- she sets them out for him. Will F/U next week with him at [facility] to verify meds. Pork Cutlet Maker plan for next outreach: Will follow up at [facility] Signature Rosalba Burleson RN Ambulatory Textile Screen Maker Internal Medicine [facility] August 09, 2018 RAMONTORANJITH Observed: 08/09/2018 Status: COMPLETED Source: [place] 12:00 AM [facility] REPOSITORY Patient Outreach (INTMWS) RAND MORALES ([id number]) 1965 M Date Time Provider Department 08/09/18 ROSALBA SO During your visit today, we recorded the following information about you: Rosalba Katz RN 08/09/2018 2:55 PM Signed PRIMARY CARE COORDINATION FOLLOW-UP NOTE Provider Action/FYI Facial/mouth laceration sutured in [facility] ER. Will F/U for suture removal and diabetic med review. Patient identified by name and date of . YES Spoke to mother, Zunilda. Summary: Pt is currently in [facility] ER with laceration to lip thru and thru after falling face first on a machine he was moving. Concerns: Mother states pt HAS been taking insulin and meds- she sets them out for him. Will F/U next week with him at [facility] to verify meds. Pork Cutlet Maker plan for next outreach: Will follow up at [facility] Signature Rosalba Burleson RN Ambulatory Textile Screen Maker Internal [facility] August 09, 2018 Allergies As of Date: 08/09/2018 (No Known Allergies) Date Reviewed: 07/07/2018 Reviewed by: Adrienne Montoya LPN - Fully Assessed Reason for Visit: Textile Screen Maker Chronic Care [1597] Prescriptions as of 08/09/2018 Sig: ASPIRIN 81 MG TABLET,DELAYED * TAKE 1 TABLET BY MOUTH ONCE D* ATORVASTATIN 80 MG TABLET TAKE 1 TABLET BY MOUTH ONCE D* BASAGLAR KWIKPEN U-100 INSULI* INJECT 10 UNITS SUBCUTANEOUSL* Patient not taking: Reported on 07/07/2018 BASAGLAR KWIKPEN U-100 INSULI* INJECT 10 UNITS SUBCUTANEOUSL* Patient not taking: Reported on 07/07/2018 BLOOD-GLUCOSE METER KIT Glucose Meter of Choice - Kit* BUPROPION XL 300 MG 24 HR TAB TAKE 1 TABLET BY MOUTH ONCE D* BUSPIRONE 5 MG TABLET Take 1 tablet by mouth three * CARVEDILOL 6.25 MG TABLET TAKE ONE (1) TABLET BY MOUTH * CLOPIDOGREL 75 MG TABLET TAKE 1 TABLET BY MOUTH ONCE D* EMPAGLIFLOZIN 25 MG TABLET Take 1 tablet by mouth daily * ESCITALOPRAM 20 MG TABLET Take 1 tablet by mouth once d* ETODOLAC 200 MG CAPSULE TAKE ONE (1) CAPSULE BY MOUTH* GLIMEPIRIDE 4 MG TABLET Take 1 tablet by mouth twice * HYDROXYZINE PAMOATE 50 MG CAP* Take 1 capsule by mouth three* PEN NEEDLE, DIABETIC 31 GAUGE* 1 Each once daily. LISINOPRIL 10 MG TABLET TAKE 1 TABLET BY MOUTH ONCE D* LORATADINE 10 MG TABLET Take 1 tablet by mouth once d* METFORMIN 500 MG TABLET TAKE 2 TABLETS IN THE MORNING* Patient not taking: Reported on 07/07/2018 METFORMIN 500 MG TABLET TAKE 2 TABLETS IN THE MORNING* NICOTINE 21 MG/24 HR DAILY TR* Apply 1 Patch as directed angel* PANTOPRAZOLE 40 MG TABLET,DEL* TAKE 1 TABLET BY MOUTH ONCE D* RANITIDINE 150 MG TABLET Take 1 tablet by mouth daily * Problem List As Of Date 08/09/2018 Noted Resolved Type 1 diabetes mellitus with diabetic neuropat*INVALID FOR*05/19/2017 Hyperlipidemia [E78.5] INVALID FOR* More... HTN (hypertension) [I10] INVALID FOR* More... Back pain [M54.9] INVALID FOR* H/O degenerative disc disease [Z87.39] INVALID FOR* Right shoulder pain [M25.511] INVALID FOR* Coronary artery disease involving ek[place] heart *INVALID FOR* More... Uncontrolled type 2 diabetes mellitus with diab*INVALID FOR* More... Encounter Status:Closed by ROSALBA BURLESON on 08/09/18 PROGRESS Observed: 07/07/2018 Status: COMPLETED Source: [place] 11:33 AM [facility] REPOSITORY O ID: [id number] Author: Ascencion Lerma Service: (none) Author Type: Physician Type: Progress Notes Filed: 07/07/2018 12:14 PM Note Text: Reason for Visit Patient presents with: Follow Up: labs Rand Morales is a 52 year old male who presents here today for Above Complaints.. Health Maintenance DILATED RETINAL EXAM DIABETIC FOOT EXAM ONE PNEUMOVAX PRIOR TO AGE 65 BP CONTROLLED (<130/80) DTAP,TDAP,TD(1 - Tdap) COLORECTAL CANCER SCREENING,SEE MODIFIER HBA1C HPI He has not been taking some of his medication for diabetes. He was started on amaryl and jardiance. He has been anxious a lot due to his, social situation. Not been taking insulin, his hba1c was 11.7, he has not been taking insulin and not checking his sugar. He is trying to exercise and he is eating a little more at home, and Home made food He has not been checking his sugars, got his insulin but he is not using it because he did not know if he should keep the insulin back in the the refrigerator. He notes this time he has not been taking because his refrigerator broke and. He is willing to give blood work today. ? He forgets to put an alarm to take his medication because he constantly is not taking medication in the evening. Discussed with the nurse and she agrees to help him set the alarm No problem-specific Assessment AND Plan notes found for this encounter. PAST MEDICAL HISTORY Diagnosis Date - CVA (cerebral vascular accident) (HCC) 2015 x2 - Diabetes (HCC) - GERD (gastroesophageal reflux disease) - Heart attack (HCC) 07/2017 several - Hyperlipidemia PAST SURGICAL HISTORY Procedure Laterality Date - ELBOW SURGERY HX Left 2000 - HEART CATHETERIZATION 2017 stents x7 - UPPER EXTREM DPLX MAMMARY MAP No family history on file. Social History Substance Use Topics - Smoking status: Current Some Day Smoker Packs/day: 2.00 Years: 40.00 - Smokeless tobacco: Never Used Comment: is down to 1 pack a day for 2 years - Alcohol use 2.0 oz/week 2 Shots of liquor per week Comment: occasionally/rarely Past medical history, appointments, medications, allergies reviewed. Pertinent Lab/Diagnostic Studies are reviewed and discussed today Current Outpatient Prescriptions: - clopidogrel (PLAVIX) 75 mg tablet - aspirin, enteric coated (ASPIRIN, ENTERIC COATED) 81 mg EC tablet - pantoprazole DR (PROTONIX) 40 mg tablet - atorvastatin (LIPITOR) 80 mg tablet - lisinopril (ZESTRIL, PRINIVIL) 10 mg tablet - buPROPion XL (WELLBUTRIN XL) 300 mg 24 hr tablet - carvedilol (COREG) 6.25 mg tablet - metFORMIN (GLUCOPHAGE) 500 mg tablet - etodolac (LODINE) 200 mg capsule - nicotine (NICODERM) 21 mg/24 hr - escitalopram oxalate (LEXAPRO) 20 mg tablet - insulin needles, DISPOSABLE, 31 gauge x 5/16 ndle - loratadine (CLARITIN) 10 mg tablet - busPIRone (BUSPAR) 5 mg tablet - ranitidine (ZANTAC) 150 mg tablet - BASAGLAR KWIKPEN U-100 INSULIN 100 unit/mL (3 mL) inpn - BASAGLAR KWIKPEN U-100 INSULIN 100 unit/mL (3 mL) inpn - metFORMIN (GLUCOPHAGE) 500 mg tablet - Blood-Glucose Meter monitoring kit Review of Systems CONSTITUTIONAL: No fevers, chills night sweats, unintended weight loss CARDIOVASCULAR: No chest pain, dyspnea, palpitations, orthopnea, PND, ankle edema. PULM: No dyspnea, unexplained cough. GI: No dysphagia/odynophagia, problematic reflux, constipation, diarrhea, changes in stool habits, hematochezia, melena. : No new urinary complaints, including dysuria, gross hematuria or pyuria. NEURO: No new balance problems, peripheral weakness/paresthesias or numbness of concern. Physical Exam BP 110/82 (BP Site: Left Arm, BP Position: Sitting, BP Cuff Size: Large Adult) Pulse 68 Resp 16 Wt 102.5 kg (226 lb) BMI 30.65 kg/m? General appearance: Well appearing, alert, in no acute distress, well nourished. Skin: Skin color, texture, turgor normal, no suspicious rashes or lesions Head: Normocephalic, no masses, lesions, tenderness or abnormalities Eyes: Anicteric sclera. Pupils are equally round and reactive to light. Extraocular movements are intact. Lungs: Lungs clear to auscultation. No wheezing, rhonchi, rales Heart: RRR without murmur, gallop, or rubs. Extremities: No deformities, edema, skin discoloration, clubbing or cyanosis. Good capillary refill. ASSESSMENT/PLAN: 1. Type 2 diabetes mellitus without complication, without long-term current use of insulin (HCC) - ICD9: 250.00, ICD10: E11.9 (primary diagnosis) Very poorly controlled , he has excuses everytime on why he is not taking the insulin, I gave him more oral medication to hep him. - HEMOGLOBIN A1C (POC) 2. Anxiety - ICD9: 300.00, ICD10: F41.9 He was asked to vacate from his mothers house in 3 weeks and he is very anxious about it. 3. Essential hypertension - ICD9: 401.9, ICD10: I10 - good control - Recommended regular aerobic exercise. - Recommend home blood pressure monitoring, to bring results in on next visit - Goal of BP <130/80 4. Hyperlipidemia, unspecified hyperlipidemia type - ICD9: 272.4, ICD10: E78.5 - good control - Continue current medication. ASCENCION LERMA MD CNOV Observed: 07/07/2018 Status: COMPLETED Source: [place] 11:00 AM [facility] REPOSITORY Office Visit (INTMWS) RAND MORALES ([id number]) 1965 M Date Time Provider Department 07/07/18 11:00 AM ASCENCION LERMA INTMWS During your visit today, we recorded the following information about you: Pulse Respiration Blood pressure Weight 68/minute 16/minute 110/82 102.5 kg ASCENCION LERMA MD 07/07/2018 12:14 PM Signed Reason for Visit Patient presents with: Follow Up: labs Rand Morales is a 52 year old male who presents here today for Above Complaints.. Health Maintenance DILATED RETINAL EXAM DIABETIC FOOT EXAM ONE PNEUMOVAX PRIOR TO AGE 65 BP CONTROLLED (<130/80) DTAP,TDAP,TD(1 - Tdap) COLORECTAL CANCER SCREENING,SEE MODIFIER HBA1C HPI He has not been taking some of his medication for diabetes. He was started on amaryl and jardiance. He has been anxious a lot due to his, social situation. Not been taking insulin, his hba1c was 11.7, he has not been taking insulin and not checking his sugar. He is trying to exercise and he is eating a little more at home, and Home made food He has not been checking his sugars, got his insulin but he is not using it because he did not know if he should keep the insulin back in the the refrigerator. He notes this time he has not been taking because his refrigerator broke and. He is willing to give blood work today. ? He forgets to put an alarm to take his medication because he constantly is not taking medication in the evening. Discussed with the nurse and she agrees to help him set the alarm No problem-specific Assessment AND Plan notes found for this encounter. PAST MEDICAL HISTORY Diagnosis Date - CVA (cerebral vascular accident) ([facility]) 2015 x2 - Diabetes ([facility]) - GERD (gastroesophageal reflux disease) - Heart attack ([facility]) 07/2017 several - Hyperlipidemia PAST SURGICAL HISTORY Procedure Laterality Date - ELBOW SURGERY HX Left 1999 - HEART CATHETERIZATION 2017 stents x7 - UPPER EXTREM DPLX MAMMARY MAP No family history on file. Social History Substance Use Topics - Smoking status: Current Some Day Smoker Packs/day: 2.00 Years: 40.00 - Smokeless tobacco: Never Used Comment: is down to 1 pack a day for 2 years - Alcohol use 2.0 oz/week 2 Shots of liquor per week Comment: occasionally/rarely Past medical history, appointments, medications, allergies reviewed. Pertinent Lab/Diagnostic Studies are reviewed and discussed today Current Outpatient Prescriptions: - clopidogrel (PLAVIX) 75 mg tablet - aspirin, enteric coated (ASPIRIN, ENTERIC COATED) 81 mg EC tablet - pantoprazole DR (PROTONIX) 40 mg tablet - atorvastatin (LIPITOR) 80 mg tablet - lisinopril (ZESTRIL, PRINIVIL) 10 mg tablet - buPROPion XL (WELLBUTRIN XL) 300 mg 24 hr tablet - carvedilol (COREG) 6.25 mg tablet - metFORMIN (GLUCOPHAGE) 500 mg tablet - etodolac (LODINE) 200 mg capsule - nicotine (NICODERM) 21 mg/24 hr - escitalopram oxalate (LEXAPRO) 20 mg tablet - insulin needles, DISPOSABLE, 31 gauge x 5/16 ndle - loratadine (CLARITIN) 10 mg tablet - busPIRone (BUSPAR) 5 mg tablet - ranitidine (ZANTAC) 150 mg tablet - BASAGLAR KWIKPEN U-100 INSULIN 100 unit/mL (3 mL) inpn - BASAGLAR KWIKPEN U-100 INSULIN 100 unit/mL (3 mL) inpn - metFORMIN (GLUCOPHAGE) 500 mg tablet - Blood-Glucose Meter monitoring kit Review of Systems CONSTITUTIONAL: No fevers, chills night sweats, unintended weight loss CARDIOVASCULAR: No chest pain, dyspnea, palpitations, orthopnea, PND, ankle edema. PULM: No dyspnea, unexplained cough. GI: No dysphagia/odynophagia, problematic reflux, constipation, diarrhea, changes in stool habits, hematochezia, melena. : No new urinary complaints, including dysuria, gross hematuria or pyuria. NEURO: No new balance problems, peripheral weakness/paresthesias or numbness of concern. Physical Exam BP 110/82 (BP Site: Left Arm, BP Position: Sitting, BP Cuff Size: Large Adult) Pulse 68 Resp 16 Wt 102.5 kg (226 lb) BMI 30.65 kg/m? General appearance: Well appearing, alert, in no acute distress, well nourished. Skin: Skin color, texture, turgor normal, no suspicious rashes or lesions Head: Normocephalic, no masses, lesions, tenderness or abnormalities Eyes: Anicteric sclera. Pupils are equally round and reactive to light. Extraocular movements are intact. Lungs: Lungs clear to auscultation. No wheezing, rhonchi, rales Heart: RRR without murmur, gallop, or rubs. Extremities: No deformities, edema, skin discoloration, clubbing or cyanosis. Good capillary refill. ASSESSMENT/PLAN: 1. Type 2 diabetes mellitus without complication, without long-term current use of insulin ([facility]) - ICD9: 250.00, ICD10: E11.9 (primary diagnosis) Very poorly controlled , he has excuses everytime on why he is not taking the insulin, I gave him more oral medication to hep him. - HEMOGLOBIN A1C (POC) 2. Anxiety - ICD9: 300.00, ICD10: F41.9 He was asked to vacate from his mothers house in 3 weeks and he is very anxious about it. 3. Essential hypertension - ICD9: 401.9, ICD10: I10 - good control - Recommended regular aerobic exercise. - Recommend home blood pressure monitoring, to bring results in on next visit - Goal of BP <130/80 4. Hyperlipidemia, unspecified hyperlipidemia type - ICD9: 272.4, ICD10: E78.5 - good control - Continue current medication. ASCENCION LERMA MD Referring Provider: SELF [200] Allergies As of Date: 07/07/2018 (No Known Allergies) Date Reviewed: 07/07/2018 Reviewed by: Adrienne Montoya LPN - Fully Assessed Reason for Visit: Follow Up [171] Cmt: labs Primary Visit Diagnosis:Type 2 diabetes mellitus without complication, without long-term current use of insulin (HCC) [E11.9] Other Visit Diagnoses:Anxiety [F41.9] Essential hypertension [I10] Hyperlipidemia, unspecified hyperlipidemia type [E78.5] Order(s):HEMOGLOBIN A1C (POC) [4806923] Order #: [id number]. #:[id number] glimepiride (AMARYL) 4 mg tabletTake 1 tablet by mouth daily with breakfast.Disp: 60 tabletRfl: 11 empagliflozin (JARDIANCE) 25 mg tabletTake 1 tablet by mouth daily with breakfast.Disp: 30 tabletRfl: 5 hydrOXYzine pamoate (VISTARIL) 50 mg capsuleTake 1 capsule by mouth three times daily as needed.Disp: 90 capsuleRfl: 2 HGB A1C [UFNSI1C] Order #: [id number] FUTURE Prescriptions as of 07/07/2018 Sig: CLOPIDOGREL 75 MG TABLET TAKE 1 TABLET BY MOUTH ONCE D* ASPIRIN 81 MG TABLET,DELAYED * TAKE 1 TABLET BY MOUTH ONCE D* PANTOPRAZOLE 40 MG TABLET,DEL* TAKE 1 TABLET BY MOUTH ONCE D* ATORVASTATIN 80 MG TABLET TAKE 1 TABLET BY MOUTH ONCE D* LISINOPRIL 10 MG TABLET TAKE 1 TABLET BY MOUTH ONCE D* BUPROPION XL 300 MG 24 HR TAB TAKE 1 TABLET BY MOUTH ONCE D* CARVEDILOL 6.25 MG TABLET TAKE ONE (1) TABLET BY MOUTH * METFORMIN 500 MG TABLET TAKE 2 TABLETS IN THE MORNING* ETODOLAC 200 MG CAPSULE TAKE ONE (1) CAPSULE BY MOUTH* NICOTINE 21 MG/24 HR DAILY TR* Apply 1 Patch as directed angel* ESCITALOPRAM 20 MG TABLET Take 1 tablet by mouth once d* PEN NEEDLE, DIABETIC 31 GAUGE* 1 Each once daily. LORATADINE 10 MG TABLET Take 1 tablet by mouth once d* BUSPIRONE 5 MG TABLET Take 1 tablet by mouth three * RANITIDINE 150 MG TABLET Take 1 tablet by mouth daily * GLIMEPIRIDE 4 MG TABLET Take 1 tablet by mouth daily * EMPAGLIFLOZIN 25 MG TABLET Take 1 tablet by mouth daily * HYDROXYZINE PAMOATE 50 MG CAP* Take 1 capsule by mouth three* BASAGLAR KWIKPEN U-100 INSULI* INJECT 10 UNITS SUBCUTANEOUSL* Patient not taking: Reported on 07/07/2018 BASAGLAR KWIKPEN U-100 INSULI* INJECT 10 UNITS SUBCUTANEOUSL* Patient not taking: Reported on 07/07/2018 METFORMIN 500 MG TABLET TAKE 2 TABLETS IN THE MORNING* Patient not taking: Reported on 07/07/2018 BLOOD-GLUCOSE METER KIT Glucose Meter of Choice - Kit* Problem List As Of Date 07/07/2018 Noted Resolved Type 1 diabetes mellitus with diabetic neuropat*INVALID FOR*05/19/2017 Hyperlipidemia [E78.5] INVALID FOR* More... HTN (hypertension) [I10] INVALID FOR* More... Back pain [M54.9] INVALID FOR* H/O degenerative disc disease [Z87.39] INVALID FOR* Right shoulder pain [M25.511] INVALID FOR* Coronary artery disease involving [place] heart *INVALID FOR* More... Uncontrolled type 2 diabetes mellitus with diab*INVALID FOR* More... Prescriptions ordered this encounter Disp Refills Start End GLIMEPIRIDE 4 MG TABLET 60 t* 11 07/07/2018 Route: ORAL Sig: Take 1 tablet by mouth daily with breakfast. EMPAGLIFLOZIN 25 MG TABLET 30 t* 5 07/07/2018 Route: ORAL Sig: Take 1 tablet by mouth daily with breakfast. HYDROXYZINE PAMOATE 50 MG CAPSULE 90 c* 2 07/07/2018 Route: ORAL Sig: Take 1 capsule by mouth three times daily as needed. Encounter Status:Closed by ASCENCION LERMA MD on 07/07/18 CT ANGIOGRAPHY CHEST Observed: 06/22/2018 Status: F Source: [place] W/CONTRAST 11:24 PM [facility] REPOSITORY ORIGINAL CT PULMONARY ANGIOGRAM WITH IV CONTRAST: with post-processing, volume rendering and 3-D acquisitions. This exam was performed according to our departmental dose optimization program, and includes the fo llowing measures where applicable: automated exposure control, adjustment of the mAs and/or kVp according to patient size and/or exam, and an iterative reconstruction algorithm. CLINICAL STATEMENT: chest pain; suspect PE. The chest pain for 2 days with shortness of breath COMPARISON:03/06/2012 CT angiography chest. FINDINGS: There is not adequate contrast opacification of the pulmonary arterial vasculature, with Hounsfield units between 100 and 150. There is no central overt filling defect. The thoracic aorta is normal in caliber, and demonstrates no evidence of dissection. There is trace pleural effusion. The LEFT ventricular wall is mildly thickened. There is multivessel coronary artery disease with stent grafts. There are prominent mediastinal lymph nodes, including a R IGHT hilar lymph node measuring 1.3 cm in short axis, a LEFT hilar lymph node measuring 1.1 cm, borderline subcarinal and RIGHT lower paratracheal lymph nodes. There is a LEFT upper paratracheal lymph n ode measuring 1 cm. There is no axillary lymphadenopathy. The central airways are patent. There is mild bronchiectasis and bronchial wall thickening. There is bilateral lower lobe mucus plugging. There are numerous scattered nodular opacities within the RIGHT upper lobe, RIGHT lower lobe, LEFT upper lobe and LEFT lower lobe. There is no pneumothorax or pleural fluid. The visualized osseous structures are intact. Limited images of the upper abdomen are normal. IMPRESSION: 1. Inadequate contrast opacification of the pulmonary arteries. No overt central or significant embolus. 2. Multifocal aggregated nodular opacities scattered throughout the lungs, nonspecific but likely representing infectious or inflammatory process. At least some of these in the RIGHT lower lobe are radi ographically visible. Follow-up in 6 weeks is suggested. 3. Mild bronchiectasis and mucous plugging. Moderate diffuse peribronchial thickening is probably related to history of smoking. 4. Mild lymphadenopathy, most likely reactive. 5. Coronary artery disease. Diffuse circumferential wall thickening of most of the esophagus is present on the earlier study also. This is probably dysmotility but esophagram/endoscopy should be considered. 6. Multiple nodular structures in the upper abdomen many of which are favored to be prominent collateral venous channels mainly on the LEFT side and around the spleen. The spleen is not enlarged. There is probably at least mild periportal lymphadenopathy also. Suggest elective evaluation of these findings with a CT of the abdomen and pelvis with intravenous and oral contrast. I have personally reviewed the images of this examination and agree with the resident's findings and interpretation. Interpreted By: Ganesh Chiang MD Preliminary Report By: Pardeep Perez DO Electronically Signed By: Ganesh Chiang MD Dictated Date: 06/22/2018 11:27:16 PM Prelim Date: 06/22/2018 11:34:32 PM Sign Date: 06/22/2018 11:52:00 PM XR CHEST 2 VIEWS Observed: 06/22/2018 Status: F Source: [place] [employer] 10:26 PM [facility] REPOSITORY ORIGINAL XR CHEST 2 VIEWS CLINICAL STATEMENT: SOB/Cough/Fever COMPARISON: 10/26/2015 chest x-ray FINDINGS: The cardia mediastinal silhouette is unchanged. There is new RIGHT basilar focal consolidation. This is probably in the middle lobe although difficult to localize on the lateral view. There is no pleural effusion or pneumothorax. There is no vascular congestion. There are no acute osseous findings. IMPRESSION: RIGHT basilar focal consolidation, which may reflect infectious/inflammatory process. Follow-up PA and lateral chest x-ray in 4-6 weeks is suggested to ensure resolution. I have personally reviewed the images of this examination and agree with the resident's findings and interpretation. Interpreted By: Ganesh Chiang MD Preliminary Report By: Pardeep Perez DO Electronically Signed By: Ganesh Chiang MD Dictated Date: 06/22/2018 10:29:41 PM Prelim Date: 06/22/2018 10:31:24 PM Sign Date: 06/22/2018 11:01:03 PM CBC Collected: 06/22/2018 Status: F Source: [place] [employer] 10:12 PM [facility] REPOSITORY TYPE CODE TESTS RESULT OUT OF REFERENCE UNITS RANGE LAB WBC(LOINC) 4.60-10.80 10 3/mcL High WBC 11.30 LAB RBCCT(LOINC 4.04-6.13 10 6/mcL ) RBC 5.18 LAB HGB(LOINC) 14.0-18.0 G/dL Hgb 15.5 LAB HCT(LOINC) 42.0-52.0 % Hct 46.2 LAB MCV(LOINC) 80.0-94.0 fL MCV 89.3 LAB MCH(LOINC) 27.0-31.2 pg MCH 30.0 LAB MCHC(LOINC) 31.8-35.4 G/dL MCHC 33.7 LAB RDW(LOINC) 11.5-14.5 % RDW 13.1 LAB PLT(LOINC) 130-400 10 3/mcL Platelet 265 LAB MPV(LOINC) 7.4-10.4 fL MPV 9.4 Performed By: #### CBC, ADIFF, ANEU #### [address] [address] #### TROP, BMP, GFR #### [address] [address] .AUTO DIFF Collected: 06/22/2018 Status: F Source: [facility] 10:12 PM [facility] REPOSITORY TYPE CODE TESTS RESULT OUT OF REFERENCE UNITS RANGE LAB CHOLO(LOINC) 37.0-80.0 % Neutrophil % 60.0 LAB LYM(LOINC) 10.0-50.0 % Lymphocyte % 32.4 LAB MON(LOINC) 1.7-13.0 % Monocyte % 6.0 LAB EO(LOINC) 0.0-7.0 % Eosinophil % 1.1 LAB BAS(LOINC) 0.0-2.5 % Basophil % 0.5 LAB ABLYM(LOIN 0.77-3.85 10 3/mcL C) Lymphocyte, 3.70 Absolute LAB LUTHER(LOINC 0.15-1.00 10 3/mcL ) Monocyte, 0.70 Absolute LAB AEOS(LOINC 0.00-0.40 10 3/mcL ) Eosinophil, 0.10 Absolute LAB ABAS(LOINC 0.00-0.19 10 3/mcL ) Basophil, 0.10 Absolute Performed By: #### CBC, ADIFF, ANEU #### [address] [address] #### TROP, BMP, GFR #### [address] [address] .NEUABS Collected: 06/22/2018 Status: F Source: [facility] 10:12 PM [facility] REPOSITORY TYPE CODE TESTS RESULT OUT OF REFERENCE UNITS RANGE LAB ANEU(LOINC) 2.85-6.16 10 3/mcL High Neutrophil, 6.80 Absolute Performed By: #### CBC, ADIFF, ANEU #### [address] [address] #### TROP, BMP, GFR #### [place] [address] TROP Collected: 06/22/2018 Status: F Source: [facility] 10:12 PM [facility] REPOSITORY TYPE CODE TESTS RESULT OUT OF REFERENCE UNITS RANGE LAB TROP(LOINC) 0.000-0.040 ng/mL Troponin <0.020 Result Comment: Troponin I reference range: 0.00-0.040 ng/mL Negative and non-diagnostic. >0.040 ng/mL Consistent with cardiac damage, increased clinical risk and possibility of myocardial infarction. Serial measurements, a rise & fall in test results, clinical history, appropriate symptoms and/or ECG changes may help assess possibility of PA. *Other non-acute coronary syndrome conditions such as CHF, myocarditis, pulmonary emboli, sepsis and cardiac surgery could result in myocardial damage and increased troponin levels. Performed By: #### CBC, ADIFF, ANEU #### [address] [address] #### TROP, BMP, GFR #### [place] [address] BMP Collected: 06/22/2018 Status: F Source: [facility] 10:12 [facility] REPOSITORY TYPE CODE TESTS RESULT OUT OF REFERENCE UNITS RANGE LAB GLU(LOINC) 70-105 mg/dL Glucose High Level 400 LAB NA(LOINC) 136-145 mmol/L Low Sodium Level 134 LAB K(LOINC) 3.5-5.1 mmol/L Potassium Level 4.3 LAB CL(LOINC) 98-107 mmol/L Low Chloride 97 LAB CO2(LOINC) 22-29 mmol/L CO2 28 LAB EBAL(LOINC mEq/L ) Electrolyte Balance 9.0 LAB BUN(LOINC) 7-18 mg/dL BUN 15 LAB CRE(LOINC) 0.70-1.30 mg/dL Creatinine Lvl (s) 1.02 LAB BC(LOINC) 7-27 ratio BUN/Creatinine 15 Ratio LAB CA(LOINC) 8.4-10.2 mg/dL Calcium Lvl 9.9 Performed By: #### CBC, ADIFF, ANEU #### [id number] [place], [place] [address] #### TROP, BMP, GFR #### [address] [address] .GFR Collected: 06/22/2018 Status: F Source: [facility] 10:12 PM [facility] TYPE CODE TESTS RESULT OUT OF REFERENCE UNITS RANGE LAB GFRAA(LOINC ml/min/1.73 ) sqm GFR 93 [place] Result Comment: GFR Population mean for , Non- Americans Ages 20-29 = 116 mL/min/1.73 sq.m. Ages 30-39 = 107 mL/min/1.73 sq.m. Ages 40-49 = 99 mL/min/1.73 sq.m. Ages 50-59 = 93 mL/min/1.73 sq.m. Ages 60-69 = 85 mL/min/1.73 sq.m. Ages 70+ = 75 mL/min/1.73 sq.m. Chronic Kidney Disease: Less than 60 mL/min/1.73 square meters End Stage Renal Disease: Less than 15 mL/min/1.73 square meters LAB GFRNO(LOINC) ml/min/1.73sqm GFR Non- 77 Result Comment: GFR Population mean for , Non- Americans Ages 20-29 = 116 mL/min/1.73 sq.m. Ages 30-39 = 107 mL/min/1.73 sq.m. Ages 40-49 = 99 mL/min/1.73 sq.m. Ages 50-59 = 93 mL/min/1.73 sq.m. Ages 60-69 = 85 mL/min/1.73 sq.m. Ages 70+ = 75 mL/min/1.73 sq.m. Chronic Kidney Disease: Less than 60 mL/min/1.73 square meters End Stage Renal Disease: Less than 15 mL/min/1.73 square meters Performed By: #### CBC, ADIFF, ANEU #### [place] [address] [place], [place] [address] #### TROP, BMP, GFR #### [address] [address] PBNP Collected: 06/22/2018 Status: F Source: [facility] 10:12 PM [facility] REPOSIT[facility] TYPE CODE TESTS RESULT OUT OF REFERENCE UNITS RANGE LAB PBNP(LOINC) 0-125 pg/mL High N-Terminal 461 proBNP Result Comment: NT-proBNP results of less than 300 pg/mL effectively rules out acute congestive heart failure with 99% negative predictive value. Performed By: #### PBNP #### [facility] [address] [place] [id number] PROGRESS Observed: 06/17/2018 Status: COMPLETED Source: [place] 10:18 AM [facility] REPOSITORY HNO ID: [id number] Author: Celia Browne Cma Service: (none) Author Type: (none) Type: Progress Notes Filed: 06/17/2018 10:18 AM Note Text: Letters mailed to patient. PROGRESS Observed: 06/17/2018 Status: COMPLETED Source: [place] 10:16 AM [facility] REPOSITORY HNO ID: [id number] Author: Celia Browne Cma Service: (none) Author Type: (none) Type: Progress Notes Filed: 06/17/2018 10:18 AM Note Text: [employer] C[employer] ATTENDANT QUICKNOTE Provider Action/FYI: Patient identified by name and . Patient discussed in teamlet. Please send appointment/lab reminder to patient along with DM retinal exam reminder/release. Celia Browne Cma CNPTOUTREACH Observed: 06/17/2018 Status: COMPLETED Source: [place] 12:00 AM [facility] REPOSITORY Patient Outreach (FAMPWS) RAND MORALES ([id number]) 1965 M Date Time Provider Department 06/17/18 CELIA RBOWNE) FAMPWS During your visit today, we recorded the following information about you: Celia Browne Cma 06/17/2018 10:18 AM Signed [employer] ATTENDANT QUICKNOTE Provider Action/FYI: Patient identified by name and . Patient discussed in teamlet. Please send appointment/lab reminder to patient along with DM retinal exam reminder/release. Celia Browne [facility] 06/17/2018 10:18 AM Signed Letters mailed to patient. Allergies As of Date: 06/17/2018 (No Known Allergies) Date Reviewed: 03/12/2018 Reviewed by: Anat Inman Ma - Fully Assessed Reason for Visit: PHMA/Care Gap Outreach [[id number]] Prescriptions as of 06/17/2018 Sig: ASPIRIN 81 MG TABLET,DELAYED * TAKE 1 TABLET BY MOUTH ONCE D* PANTOPRAZOLE 40 MG TABLET,DEL* TAKE 1 TABLET BY MOUTH ONCE D* ATORVASTATIN 80 MG TABLET TAKE 1 TABLET BY MOUTH ONCE D* LISINOPRIL 10 MG TABLET TAKE 1 TABLET BY MOUTH ONCE D* BUPROPION XL 300 MG 24 HR TAB TAKE 1 TABLET BY MOUTH ONCE D* CARVEDILOL 6.25 MG TABLET TAKE ONE (1) TABLET BY MOUTH * METFORMIN 500 MG TABLET TAKE 2 TABLETS IN THE MORNING* BASAGLAR KWIKPEN U-100 INSULI* INJECT 10 UNITS SUBCUTANEOUSL* ETODOLAC 200 MG CAPSULE TAKE ONE (1) CAPSULE BY MOUTH* BASAGLAR KWIKPEN U-100 INSULI* INJECT 10 UNITS SUBCUTANEOUSL* METFORMIN 500 MG TABLET TAKE 2 TABLETS IN THE MORNING* NICOTINE 21 MG/24 HR DAILY TR* Apply 1 Patch as directed angel* ESCITALOPRAM 20 MG TABLET Take 1 tablet by mouth once d* PEN NEEDLE, DIABETIC 31 GAUGE* 1 Each once daily. LORATADINE 10 MG TABLET Take 1 tablet by mouth once d* BUSPIRONE 5 MG TABLET Take 1 tablet by mouth three * RANITIDINE 150 MG TABLET Take 1 tablet by mouth daily * BLOOD-GLUCOSE METER KIT Glucose Meter of Choice - Kit* CLOPIDOGREL 75 MG TABLET Take 1 tablet by mouth once d* Problem List As Of Date 06/17/2018 Noted Resolved Type 1 diabetes mellitus with diabetic neuropat*INVALID FOR*05/19/2017 Hyperlipidemia [E78.5] INVALID FOR* More... HTN (hypertension) [I10] INVALID FOR* More... Back pain [M54.9] INVALID FOR* H/O degenerative disc disease [Z87.39] INVALID FOR* Right shoulder pain [M25.511] INVALID FOR* Coronary artery disease involving [place] heart *INVALID FOR* More... Uncontrolled type 2 diabetes mellitus with diab*INVALID FOR* More... Letter Text [address] Department of Internal Medicine Ascencion Lerma MD [address] [phone] Dear Rand Morales Your health care is very important to us. Our records indicate that you may be due for a diabetic eye exam. If you have had a diabetic eye exam within the last year, please have your records sent to us so that we may update your medical records. There is a medical records of release of information included in this letter. Please take the release to your eye doctor for future appointments to have your records forwarded to us. Important facts about diabetic eye exams Diabetic retinal exams should be done yearly for all patients with a diagnosis of diabetes. Risks such as diabetic retinopathy can be reduced with blood glucose control and early detection of potential problems. 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 Please fax this letter back to me with the most appropriate response selected below. Please allow the patient's signature to serve as permission to share your findings. Sincerely, Ascencion Lerma MD Patient Signature Date Date of eye exam: Findings Both Eyes Right Left No Retinopathy Detected Non Proliferative Retinopathy Mild Moderate Severe Proliferative Retinopathy Macular Edema Further testing and/or treatment indicated Comments: Patient is to return: Encounter Status:Closed by CELIA BROWNE CMA on 06/17/18 PROGRESS Observed: 05/09/2018 Status: COMPLETED Source: [place] 9:42 AM [facility] REPOSITORY HNO ID: [id number] Author: Celia Browne Cma Service: (none) Author Type: (none) Type: Progress Notes Filed: 05/09/2018 9:44 AM Note Text: I spoke with Diogo and he agreed to schedule a follow up appointment with labs prior. He states he's never had an eye exam done, but he will look into this. I gave him the name of a few opthalmology offices in [place]. Appointment scheduled 07/07/18. The patient has been identified by name and date of : YES I have scheduled the patient for an appointment on 05/02/2018. The patient will report to the lab prior to the visit. I have pended the following lab orders: Pended Orders None PHMA Documentation 02/22/2018 05/09/2018 Opts out of [employer] [facility] No No Appointments Scheduled Scheduled PCP Appt Scheduled PCP Appt DM2 with No CASSI (No Data) - DM2 with No Urine Alb Lab Ordered - DM2 with No DFE (No Data) - A1C > 8.9 Lab Ordered Lab Ordered Celia Browne Cma PROGRESS Observed: 05/05/2018 Status: COMPLETED Source: [place] 9:16 AM [facility] [place] REPOSITORY O ID: [id number] Author: Celia Browne Cma Service: (none) Author Type: (none) Type: Progress Notes Filed: 05/09/2018 9:44 AM Note Text: Left message for patient to return call #[phone] LEAD ELECTROCARDIOGRAM Observed: 05/03/2018 Status: F Source: [place] 2:21 PM [facility] REPOSITORY [facility] Cardiovascular Services [address] [place] [address] 12 Lead EKG 04/29/18 1844 MR#: [id number] Acct: [id number] Name: RAND MORALES Rep #: [id number] : 1965 52 From: Tye Lawson MD Attending Dr: Status: DEP ER Ordering Dr: Raheem Stearns MD Date: 04/29/18 Location: ED Sex: M C Admitted: Test Reason : CP Blood Pressure : / mmHG Vent. Rate : 115 BPM Atrial Rate : 115 BPM P-R Int : 146 ms QRS Dur : 080 ms QT Int : 334 ms P-R-T Axes : 078 112 077 degrees QTc Int : 462 ms Sinus tachycardia Right axis deviation Possible Right ventricular hypertrophy Abnormal ECG Confirmed by TYE LAWSON ([id number]), scientific publications editor WILLEM IGNACIO ([id number]) on 05/03/2018 2:21:38 PM Referred By: Confirmed By:TYE LAWSON 05/03/18 1421 Date Tye Lawson MD CC: Ascencion Lerma MD; Raheem Stearns MD Signed PROGRESS Observed: 05/02/2018 Status: COMPLETED Source: [place] 9:37 AM [facility] [place] REPOSITORY O ID: [id number] Author: Celia Dennys Vicente Service: (none) Author Type: (none) Type: Progress Notes Filed: 05/09/2018 9:44 AM Note Text: Mailbox full - unable to lmom. Try back later. EMERGENCY DEPARTMENT Observed: 04/30/2018 Status: F Source: [place] SUMMARY 1:00 AM [facility] REPOSITORY [facility] Medical Records Department [address] [place] [address] Emergency Department Summary 04/30/18 0036 MR#: [id number] Acct: [id number] Name: RAND MORALES Rep #: [id number] : 1965 52 From: Raheem Stearns MD PCP: Ascencion Lerma MD Status: DEP ER - ER Visit Summary Date of Service: 04/30/18 Chief Complaint: Neck and back pain History of Present Illness: The patient is a [address] Lerma and Dr. Zach Reid. He reports that he slid out of a truck 2 days ago. He did not fall. However, he twisted awkwardly and he reports that he has neck and back pain that have been present since then. Reports the back pain is 8 out of 10 severity currently and 10 out of 10 at worst. He describes it as a sharp pain. It is increased with movement. There is no relieving factors. There are no radiation to his legs. No numbness or weakness in his legs. Patient reports that his neck pain is 10 out of 10 with movement. Is 5 out of 10 at rest and after back and body. Patient also reports that he has felt rundown for the past 2 weeks. He had an episode of chest pain at 430 this morning awoke him from sleep. Last approximately 3 minutes. He reports that he has felt mildly short of breath. His chronic cough is unchanged. He has a headache this 2 out of 10 severity. Physical Examination: Vitals: Stable. Afebrile. Neck: Moderate diffuse tenderness palpation over his entire C-spine. No point tenderness. Full ROM without difficulty. Back: Mild diffuse sinus palpation over his entire lumbar spine. No point tenderness. General: A AND O x 3. NAD. Cardiovascular exam: Regular rate and rhythm, no murmur, rub or gallop. Respiratory exam: Chest nontender. No crepitus. Clear to auscultation bilaterally. No wheezes or stridor. Abdominal exam: Soft, nontender, nondistended, normal bowel sounds. No pain in RUQ or LUQ specifically. No peritoneal signs. Extremity: Atraumatic. No pain with range of motion. Test Results: I had written for labs and x-rays. Patient did have an EKG is sinus tach at [address] changes. Emergency Department Course and Treatment: Patient asked for pain medications. I wrote for a dose of Tylenol. He became incensed and walked out of the emergency department. Treatment Plan: Patient left prior to completion of treatment. Disposition: Elopement Impression: 1. Neck/back pain. 2. Chest pain. 3. Diarrhea. 4. Elopement. This note was generated with Sciona dictation software. It may contain incorrect words, spelling, and punctuation that were not noted in review of the chart prior to signing ED Disposition - Plan for ED Patient: Disposition: Against Medical Advice Chief Complaint: Back Referrals: Ascencion Lerma MD [Primary Care Provider] - What to do if you have Problems For any increased pain, shortness of breath, bleeding, nausea or vomiting, chest pain, or any unexpected problems, contact your Primary Care Provider. Call [facility] ([phone]) or report to the closest Emergency Room. Call 911 if necessary. 04/30/18 0100 <Electronically signed by Raheem Stearns MD> Date Raheem Stearns MD Cosigner Signature (If Indicated): Date CC: Ascencion Lerma MD PROGRESS Observed: 04/29/2018 Status: COMPLETED Source: [place] 10:10 AM [facility] [place] REPOSITORY HNO ID: [id number] Author: Sabra (Ramon) Matthew Service: (none) Author Type: Nurse Practitioner Type: Progress Notes Filed: 05/09/2018 9:44 AM Note Text: Orders filed. Sabra Martinez APRN.SENIOR MEDICAL TRANSCRIPTIONIST PROGRESS Observed: 04/29/2018 Status: COMPLETED Source: [place] 9:59 AM [facility] REPOSITORY HNO ID: [id number] Author: Celia Browne Cma Service: (none) Author Type: (none) Type: Progress Notes Filed: 05/09/2018 9:44 AM Note Text: PHMA TEAMLET DOCUMENTATION Provider Action/FYI: Please file future labs PSR Action/FYI: Due for 3 mo. Follow up with labs prior around 06/12/2018 Discuss dm retinal exam Teamlet has identified patient by name and date of . Team: Dr. Ying Yang ? Last Office Visit:03/13/2018 ? Next Office Visit: Visit date not found ? Last BP/Labs: Blood Pressure: Last 3 Encounter BP Readings: Date: BP: 03/12/2018 122/88 03/07/2018 110/72 01/13/2018 122/78 Lipids: Cholesterol, Total (mg/dL) Date Value 03/12/2018 208 11/16/2016 146 HDL Cholesterol (mg/dL) Date Value 03/12/2018 33 11/16/2016 25 LDL Cholesterol (mg/dL) Date Value 03/12/2018 Unable to calculate due to increased Triglycerides. See LDL-Chol, Direct. 11/16/2016 Unable to calculate due to increased Triglycerides. See LDL-Chol, Direct. Triglyceride (mg/dL) Date Value 03/12/2018 519 11/16/2016 475 HGB A1C: Lab Results Component Value Date HBA1C 10.8 03/12/2018 HBA1C 10.9 11/16/2016 HBA1C 11.8 08/08/2009 TSH: No results found for: TSH) Care Gap: DM - Last HGBA1C is NOT under 9% HTN - Hyperlipidemia Plan: ? Confirm PCP / Status - active ? 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 Consultation Appointments: n/a Labs, HM and Immunization: Health Maintenance Due: DILATED RETINAL EXAM due on 1975 DIABETIC FOOT EXAM due on 1975 ONE PNEUMOVAX PRIOR TO AGE 65 due on 1981 BP CONTROLLED (<130/80) due on 1983 DTAP,TDAP,TD(1 - Tdap) due on 1984 COLORECTAL CANCER SCREENING,SEE MODIFIER due on 2015 INFLUENZA(1) due on 04/23/2018 Celia Browne Cma CNPTOUTREACH Observed: 04/29/2018 Status: COMPLETED Source: [place] 12:00 AM [facility] REPOSITORY Patient Outreach (INTMWS) RAND MORALES ([id number]) 1965 M Date Time Provider Department 04/29/18 CELIA BROWNE (VARUN) INTMWS During your visit today, we recorded the following information about you: Celia Browne Cma 05/09/2018 9:44 AM Signed PHMA TEAMLET DOCUMENTATION Provider Action/FYI: Please file future labs PSR Action/FYI: Due for 3 mo. Follow up with labs prior around 06/12/2018 Discuss dm retinal exam Teamlet has identified patient by name and date of . Team: Dr. Ying Yang ? Last Office Visit:03/13/2018 ? Next Office Visit: Visit date not found ? Last BP/Labs: Blood Pressure: Last 3 Encounter BP Readings: Date: BP: 03/12/2018 122/88 03/07/2018 110/72 01/13/2018 122/78 Lipids: Cholesterol, Total (mg/dL) Date Value 03/12/2018 208 11/16/2016 146 HDL Cholesterol (mg/dL) Date Value 03/12/2018 33 11/16/2016 25 LDL Cholesterol (mg/dL) Date Value 03/12/2018 Unable to calculate due to increased Triglycerides. See LDL-Chol, Direct. 11/16/2016 Unable to calculate due to increased Triglycerides. See LDL-Chol, Direct. Triglyceride (mg/dL) Date Value 03/12/2018 519 11/16/2016 475 HGB A1C: Lab Results Component Value Date HBA1C 10.8 03/12/2018 HBA1C 10.9 11/16/2016 HBA1C 11.8 08/08/2009 TSH: No results found for: TSH) Care Gap: DM - Last HGBA1C is NOT under 9% HTN - Hyperlipidemia Plan: ? Confirm PCP / Status - active ? 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 Consultation Appointments: n/a Labs, HM and Immunization: Health Maintenance Due: DILATED RETINAL EXAM due on 1975 DIABETIC FOOT EXAM due on 1975 ONE PNEUMOVAX PRIOR TO AGE 65 due on 1981 BP CONTROLLED (<130/80) due on 1983 DTAP,TDAP,TD(1 - Tdap) due on 1984 COLORECTAL CANCER SCREENING,SEE MODIFIER due on 2015 INFLUENZA(1) due on 04/23/2018 Celia Browne [facility] Sabra Martinez APRN.RAMON 05/09/2018 9:44 AM Signed Orders filed. Sabra Martinez APRN.RAMON Browne [facility] 05/09/2018 9:44 AM Signed Mailbox full - unable to lmom. Try back later. Celia Browne [facility] 05/09/2018 9:44 AM Signed Left message for patient to return call #[phone] Celia Browne [facility] 05/09/2018 9:44 AM Signed I spoke with Diogo and he agreed to schedule a follow up appointment with labs prior. He states he's never had an eye exam done, but he will look into this. I gave him the name of a few opthalmology offices in [place]. Appointment scheduled 07/07/18. The patient has been identified by name and date of : YES I have scheduled the patient for an appointment on 05/02/2018. The patient will report to the lab prior to the visit. I have pended the following lab orders: Pended Orders None PHMA Documentation 02/22/2018 05/09/2018 Opts out of [facility] No No Appointments Scheduled Scheduled PCP Appt Scheduled PCP Appt DM2 with No CASSI (No Data) - DM2 with No Urine Alb Lab Ordered - DM2 with No DFE (No Data) - A1C > 8.9 Lab Ordered Lab Ordered Celia Dennys Vicente Allergies As of Date: 04/29/2018 (No Known Allergies) Date Reviewed: 03/12/2018 Reviewed by: Anat Inman Ma - Fully Assessed Reason for Visit: PHMA/Care Gap Outreach [[id number]] Primary Visit Diagnosis:Uncontrolled type 2 diabetes mellitus with diabetic neuropathy, without long-term current use of insulin (HCC) [E11.40, E11.65] Order(s):HGB A1C [[id number]] Order #: [id number] FUTURE Prescriptions as of 04/29/2018 Sig: METFORMIN 500 MG TABLET TAKE 2 TABLETS IN THE MORNING* BASAGLAR KWIKPEN U-100 INSULI* INJECT 10 UNITS SUBCUTANEOUSL* ETODOLAC 200 MG CAPSULE TAKE ONE (1) CAPSULE BY MOUTH* BASAGLAR KWIKPEN U-100 INSULI* INJECT 10 UNITS SUBCUTANEOUSL* METFORMIN 500 MG TABLET TAKE 2 TABLETS IN THE MORNING* NICOTINE 21 MG/24 HR DAILY TR* Apply 1 Patch as directed angel* ESCITALOPRAM 20 MG TABLET Take 1 tablet by mouth once d* PEN NEEDLE, DIABETIC 31 GAUGE* 1 Each once daily. LORATADINE 10 MG TABLET Take 1 tablet by mouth once d* BUSPIRONE 5 MG TABLET Take 1 tablet by mouth three * RANITIDINE 150 MG TABLET Take 1 tablet by mouth daily * BLOOD-GLUCOSE METER KIT Glucose Meter of Choice - Kit* ASPIRIN 81 MG TABLET,DELAYED * Take 1 tablet by mouth once d* ATORVASTATIN 80 MG TABLET Take 1 tablet by mouth once d* CLOPIDOGREL 75 MG TABLET Take 1 tablet by mouth once d* LISINOPRIL 10 MG TABLET Take 1 tablet by mouth once d* PANTOPRAZOLE 40 MG TABLET,DEL* Take 1 tablet by mouth once d* X BUPROPION XL 300 MG 24 HR TAB Take 1 tablet by mouth once d* X CARVEDILOL 6.25 MG TABLET Take 1 tablet by mouth twice * Problem List As Of Date 04/29/2018 Noted Resolved Type 1 diabetes mellitus with diabetic neuropat*INVALID FOR*05/19/2017 Hyperlipidemia [E78.5] INVALID FOR* More... HTN (hypertension) [I10] INVALID FOR* More... Back pain [M54.9] INVALID FOR* H/O degenerative disc disease [Z87.39] INVALID FOR* Right shoulder pain [M25.511] INVALID FOR* Coronary artery disease involving [place] heart *INVALID FOR* More... Uncontrolled type 2 diabetes mellitus with diab*INVALID FOR* More... Encounter Status:Closed by CELIA BROWNE CMA on 05/09/18 XR ELBOW 3V AP/LAT/OTHER Observed: 03/12/2018 Status: F Source: [facility] 10:32 AM [facility] REPOSITORY * * *Final Report* * * DATE OF EXAM: Mar 12 2018 10:32AM WOX [id number] - XR ELBOW 3V AP/LAT/OTHER RT / PROCEDURE REASON: Unspecified injury of right elbow, initial encounter * * * * Physician Interpretation * * * * PROCEDURE: Right elbow INDICATION: Unspecified injury of right elbow, initial encounter . TECHNIQUE: XR ELBOW 3V AP/LAT/OTHER RT COMPARISON: None FINDINGS: Tiny bony density at the tip of the coronoid process, whether acute or chronic is uncertain. This could represent a tiny avulsion fracture. Spurring from the lateral and medial humeral condyles. No evidence for joint effusion. Soft tissues are unremarkable. IMPRESSION: Possible tiny fracture from the coronoid process. Student Outreach Coordinator: PSCB Transcribe Date/Time: Mar 12 2018 2:37P Dictated by : NOA QUEZADA MD This examination was interpreted and the report reviewed and electronically signed by: NOA QUEZADA MD on Mar 12 2018 2:38PM EST [id number] PROGRESS Observed: 03/12/2018 Status: COMPLETED Source: [place] 10:21 AM [facility] REPOSITORY HNO ID: [id number] Author: Ysabel Coe (Rt) [place] Service: (none) Author Type: Drag Seiner Type: Progress Notes Filed: 03/12/2018 10:30 AM Note Text: Radiology Service Progress Note PATIENT NAME: Rand Morales DATE OF SERVICE: March 12, 2018 TIME: 10:21 AM PATIENT IDENTITY VERIFICATION COMPLETED USING TWO (2) METHODS: Patient confirmed name verbally and Date of . PATIENT GENDER DATA: Male PATIENT RELEVANT IMPLANT DATA REVIEWED: Not Applicable RADIOLOGY DEPARTMENT: General X-ray: Exam(s) Completed: Upper Extremity X-Ray(s): Elbow, right : PERIPHERAL IV DATA: Not applicable SIGNED BY: RT Buster March 12, 2018 10:21 AM LIPID PANEL, BASIC Collected: 03/12/2018 Status: F Source: [place] 9:46 AM [facility] REPOSITORY TYPE CODE TESTS RESULT OUT OF REFERENCE UNITS RANGE LAB CHOL <200 mg/dL Cholesterol High 208 Result Comment: <200 mg/dL, Desirable 200-239 mg/dL, Borderline high >239 mg/dL, High LAB TRIGLY <150 mg/dL Triglyceride High 519 Result Comment: <150 mg/dL, Normal 150-199 mg/dL, Borderline high 200-499 mg/dL, High >499 mg/dL, Very high LAB HDL >39 mg/dL HDL-Cholesterol Low 33 Result Comment: 40-59 mg/dL, Acceptable >59 mg/dL, High: Negative risk factor for coronary heart disease <40 mg/dL, Low: Positive risk factor for coronary heart disease LAB LDL <100 mg/dL LDL-Cholesterol Unable to calculate due to increased Triglycerides. See LDL-Chol, Direct. LAB NONHDL <130 mg/dL Non HDL Cholesterol 175 High Result Comment: <130 mg/dL, Optimal 130-159 mg/dL, Near optimal/above optimal 160-189 mg/dL, Borderline high 190-219 mg/dL, High >219 mg/dL, Very high Secondary prevention optimal non HDL Cholesterol levels are recommended to be < 100 mg/dL LAB FT hrs Fasting Time 12 LAB VLDL <30 mg/dL VLDL Unable Cholesterol to calculate due to increased Triglycerides. See LDL-Chol, Direct. LAB TCHDL <5.10 TC:HDL Ratio 6.30 High LAB LDLHDL <2.54 LDL:HDL Ratio Unable to calculate due to elevated Triglycerides. Result Comment: Reference: 1. National Cholesterol Education Program ATP III Guideline At-A-Glance Quick Desk Reference: National Heart, Lung, and Blood [place]. National Institutes of Health. 2001: NIH Publication No. 01-3305. 2. An International Atherosclerosis Society position paper: global recommendations for the management of dyslipidemia: executive summary, Atherosclerosis. 2014: 232(2):410-413. Performed By: #### LIPB, LDLDCT, HBA1C #### [facility] [employer] [address] [place], [place] [address] LDL-CHOL, DIRECT Collected: 03/12/2018 Status: F Source: [place] 9:46 AM [facility] REPOSITORY TYPE CODE TESTS RESULT OUT OF REFERENCE UNITS RANGE LAB LDLDIR <100 mg/dL High LDL-Chol, 105 Direct Result Comment: <100 mg/dL, Optimal 100-129 mg/dL, Near optimal/above optimal 130-159 mg/dL, Borderline high 160-189 mg/dL, High >189 mg/dL, Very high Secondary prevention optimal LDL Cholesterol levels are recommended to be < 70 mg/dL LAB VLDL1 <30 mg/dL VLDL Cholesterol High 70 Performed By: #### LIPB, LDLDCT, HBA1C #### [facility] [employer] [address] [place] [id number] HEMOGLOBIN A1C Collected: 03/12/2018 Status: F Source: [place] 9:46 AM [facility] REPOSITORY TYPE CODE TESTS RESULT OUT OF REFERENCE UNITS RANGE LAB HGBA1C 4.3-5.6 % High Hemoglobin A1c 10.8 LAB HBA0 mg/dL Est. Average Glucose 263 Result Comment: eAG: (Estimated average glucose) is a calculated value from HgbA1c and is marketing development representative of the average blood glucose level in the last 2-3 month period. Performed By: #### LIPB, LDLDCT, HBA1C #### [facility] [employer] [address] [place], [place] [address] ALBUMIN/CREAT RATIO Collected: 03/12/2018 Status: F Source: [place] 9:46 AM [facility] REPOSITORY TYPE CODE TESTS RESULT OUT OF REFERENCE UNITS RANGE LAB UCRR 20-300 mg/dL 56.1 Creatinine,Ur ine,Ran LAB UALBR 0.0-23.0 mg/L <12.0 Albumin Urine Random LAB UALBCR 0-30 mg/g Not Albumin/Creat calculated Ratio Performed By: #### UACR #### [facility] [address] [place], [place] [address] PROGRESS Observed: 03/12/2018 Status: COMPLETED Source: [place] 9:11 AM [facility] [place] REPOSITORY HNO ID: [id number] Author: Ascencion Lerma Service: (none) Author Type: Physician Type: Progress Notes Filed: 03/12/2018 10:54 AM Note Text: Reason for Visit Patient presents with: Recheck: Follow up, DM. Patient states being hit by horse, R elbow pain Rand Morales is a 52 year old male who presents here today for Above Complaints.. Health Maintenance DILATED RETINAL EXAM DIABETIC FOOT EXAM ONE PNEUMOVAX PRIOR TO AGE 65 DTAP,TDAP,TD(1 - Tdap) COLORECTAL CANCER SCREENING,SEE MODIFIER HBA1C URINE ALBUMIN:CREATININE RATIO LDL CHOLESTEROL HPI He was In the stables when a horse just barged on him and he had hurt his right elbow. He cannot supinate and flex with supination. Mid pronation he can flex some but not extend it all the way. He is having a lot of pain but he smokes marijuana so we cannot give him pain medications. He has not been checking his sugars, got his insulin but he is not using it because he did not know if he should keep the insulin back in the the refrigerator. He is willing to give blood work today. He forgets to put an alarm to take his medication because he constantly is not taking medication in the evening. Discussed with the nurse and she agrees to help him set the alarm No problem-specific Assessment AND Plan notes found for this encounter. PAST MEDICAL HISTORY Diagnosis Date - CVA (cerebral vascular accident) (HCC) 2016 x2 - Diabetes (HCC) - GERD (gastroesophageal reflux disease) - Heart attack (HCC) 07/2017 several - Hyperlipidemia PAST SURGICAL HISTORY Procedure Laterality Date - ELBOW SURGERY HX Left 1999 - HEART CATHETERIZATION 2017 stents x7 - UPPER EXTREM DPLX MAMMARY MAP No family history on file. Social History Substance Use Topics - Smoking status: Current Some Day Smoker Packs/day: 2.00 Years: 40.00 - Smokeless tobacco: Never Used Comment: is down to 1 pack a day for 2 years - Alcohol use 2.0 oz/week 2 Shots of liquor per week Comment: occasionally/rarely Past medical history, appointments, medications, allergies reviewed. Pertinent Lab/Diagnostic Studies are reviewed and discussed today Current Outpatient Prescriptions: - nicotine (NICODERM) 21 mg/24 hr - escitalopram oxalate (LEXAPRO) 20 mg tablet - insulin needles, DISPOSABLE, 31 gauge x / ndle - loratadine (CLARITIN) 10 mg tablet - busPIRone (BUSPAR) 5 mg tablet - insulin glargine (BASAGLAR KWIKPEN U-100 INSULIN) 100 unit/mL (3 mL) inpn - metFORMIN (GLUCOPHAGE) 500 mg tablet - ranitidine (ZANTAC) 150 mg tablet - Blood-Glucose Meter monitoring kit - aspirin, enteric coated (ADULT LOW DOSE ASPIRIN) 81 mg EC tablet - atorvastatin (LIPITOR) 80 mg tablet - buPROPion XL (WELLBUTRIN XL) 300 mg 24 hr tablet - carvedilol (COREG) 6.25 mg tablet - clopidogrel (PLAVIX) 75 mg tablet - lisinopril (PRINIVIL) 10 mg tablet - pantoprazole DR (PROTONIX) 40 mg tablet Review of Systems CONSTITUTIONAL: No fevers, chills night sweats, unintended weight loss CARDIOVASCULAR: No chest pain, dyspnea, palpitations, orthopnea, PND, ankle edema. PULM: No dyspnea, unexplained cough. GI: No dysphagia/odynophagia, problematic reflux, constipation, diarrhea, changes in stool habits, hematochezia, melena. : No new urinary complaints, including dysuria, gross hematuria or pyuria. NEURO: No new balance problems, peripheral weakness/paresthesias or numbness of concern. Physical Exam BP 122/88 Pulse 68 Resp 16 Wt 103.9 kg (229 lb) BMI 31.06 kg/m? General appearance: Well appearing, alert, in no acute distress, well nourished. Skin: Skin color, texture, turgor normal, no suspicious rashes or lesions Head: Normocephalic, no masses, lesions, tenderness or abnormalities Eyes: Anicteric sclera. Pupils are equally round and reactive to light. Extraocular movements are intact. Lungs: Lungs clear to auscultation. No wheezing, rhonchi, rales Heart: RRR without murmur, gallop, or rubs. Elbow: severe tenderness in the right elbow area He cannot supinate and flex with supination.Mid pronation he can flex some but not extend it all the way. ASSESSMENT/PLAN: 1. Injury of right elbow, initial encounter - ICD9: 959.3, ICD10: S59.901A (primary diagnosis) Gave quiana discussed side effects of all nsaids To call back he he notes any abdominal or chest pain Discussed that cannot give opiates when he is doing marijuana - XR ELBOW SPECIAL VIEWS AP/LAT/OTHER RT - XR ELBOW GENERAL 2V AP/LAT RT 2. Essential hypertension - ICD9: 401.9, ICD10: I10 - good control - Recommended regular aerobic exercise. - Recommend home blood pressure monitoring, to bring results in on next visit - Goal of BP <130/80 3. Hyperlipidemia, unspecified hyperlipidemia type - ICD9: 272.4, ICD10: E78.5 - good control - Continue current medication. 4. Uncontrolled type 2 diabetes mellitus with diabetic neuropathy, without long-term current use of insulin (HCC) - ICD9: 250.62, 357.2, ICD10: E11.40, E11.65 Uncontrolled. Needs blood work, asked patient to get this done in the following week. - Patient urged to quit smoking. ASCENCION LERMA MD CNOV Observed: 03/12/2018 Status: COMPLETED Source: [place] 8:40 AM [facility] REPOSITORY Office Visit (INTMWS) RAND MORALES ([id number]) 1965 M Date Time Provider Department 03/12/18 8:40 AM ASCENCION LERMA INTMWS During your visit today, we recorded the following information about you: Pulse Respiration Blood pressure Weight 68/minute 16/minute 122/88 103.9 kg ASCENCION LERMA MD 03/12/2018 10:54 AM Signed Reason for Visit Patient presents with: Recheck: Follow up, DM. Patient states being hit by horse, R elbow pain Rand Morales is a 52 year old male who presents here today for Above Complaints.. Health Maintenance DILATED RETINAL EXAM DIABETIC FOOT EXAM ONE PNEUMOVAX PRIOR TO AGE 65 DTAP,TDAP,TD(1 - Tdap) COLORECTAL CANCER SCREENING,SEE MODIFIER HBA1C URINE ALBUMIN:CREATININE RATIO LDL CHOLESTEROL HPI He was In the stables when a horse just barged on him and he had hurt his right elbow. He cannot supinate and flex with supination. Mid pronation he can flex some but not extend it all the way. He is having a lot of pain but he smokes marijuana so we cannot give him pain medications. He has not been checking his sugars, got his insulin but he is not using it because he did not know if he should keep the insulin back in the the refrigerator. He is willing to give blood work today. He forgets to put an alarm to take his medication because he constantly is not taking medication in the evening. Discussed with the nurse and she agrees to help him set the alarm No problem-specific Assessment AND Plan notes found for this encounter. PAST MEDICAL HISTORY Diagnosis Date - CVA (cerebral vascular accident) ([facility]) 2015 x2 - Diabetes ([facility]) - GERD (gastroesophageal reflux disease) - Heart attack ([facility]) 07/2017 several - Hyperlipidemia PAST SURGICAL HISTORY Procedure Laterality Date - ELBOW SURGERY HX Left 1999 - HEART CATHETERIZATION 2017 stents x7 - UPPER EXTREM DPLX MAMMARY MAP No family history on file. Social History Substance Use Topics - Smoking status: Current Some Day Smoker Packs/day: 2.00 Years: 40.00 - Smokeless tobacco: Never Used Comment: is down to 1 pack a day for 2 years - Alcohol use 2.0 oz/week 2 Shots of liquor per week Comment: occasionally/rarely Past medical history, appointments, medications, allergies reviewed. Pertinent Lab/Diagnostic Studies are reviewed and discussed today Current Outpatient Prescriptions: - nicotine (NICODERM) 21 mg/24 hr - escitalopram oxalate (LEXAPRO) 20 mg tablet - insulin needles, DISPOSABLE, 31 gauge x 5/16 ndle - loratadine (CLARITIN) 10 mg tablet - busPIRone (BUSPAR) 5 mg tablet - insulin glargine (BASAGLAR KWIKPEN U-100 INSULIN) 100 unit/mL (3 mL) inpn - metFORMIN (GLUCOPHAGE) 500 mg tablet - ranitidine (ZANTAC) 150 mg tablet - Blood-Glucose Meter monitoring kit - aspirin, enteric coated (ADULT LOW DOSE ASPIRIN) 81 mg EC tablet - atorvastatin (LIPITOR) 80 mg tablet - buPROPion XL (WELLBUTRIN XL) 300 mg 24 hr tablet - carvedilol (COREG) 6.25 mg tablet - clopidogrel (PLAVIX) 75 mg tablet - lisinopril (PRINIVIL) 10 mg tablet - pantoprazole DR (PROTONIX) 40 mg tablet Review of Systems CONSTITUTIONAL: No fevers, chills night sweats, unintended weight loss CARDIOVASCULAR: No chest pain, dyspnea, palpitations, orthopnea, PND, ankle edema. PULM: No dyspnea, unexplained cough. GI: No dysphagia/odynophagia, problematic reflux, constipation, diarrhea, changes in stool habits, hematochezia, melena. : No new urinary complaints, including dysuria, gross hematuria or pyuria. NEURO: No new balance problems, peripheral weakness/paresthesias or numbness of concern. Physical Exam BP 122/88 Pulse 68 Resp 16 Wt 103.9 kg (229 lb) BMI 31.06 kg/m? General appearance: Well appearing, alert, in no acute distress, well nourished. Skin: Skin color, texture, turgor normal, no suspicious rashes or lesions Head: Normocephalic, no masses, lesions, tenderness or abnormalities Eyes: Anicteric sclera. Pupils are equally round and reactive to light. Extraocular movements are intact. Lungs: Lungs clear to auscultation. No wheezing, rhonchi, rales Heart: RRR without murmur, gallop, or rubs. Elbow: severe tenderness in the right elbow area He cannot supinate and flex with supination.Mid pronation he can flex some but not extend it all the way. ASSESSMENT/PLAN: 1. Injury of right elbow, initial encounter - ICD9: 959.3, ICD10: S59.901A (primary diagnosis) Gave quiana discussed side effects of all nsaids To call back he he notes any abdominal or chest pain Discussed that cannot give opiates when he is doing marijuana - XR ELBOW SPECIAL VIEWS AP/LAT/OTHER RT - XR ELBOW GENERAL 2V AP/LAT RT 2. Essential hypertension - ICD9: 401.9, ICD10: I10 - good control - Recommended regular aerobic exercise. - Recommend home blood pressure monitoring, to bring results in on next visit - Goal of BP <130/80 3. Hyperlipidemia, unspecified hyperlipidemia type - ICD9: 272.4, ICD10: E78.5 - good control - Continue current medication. 4. Uncontrolled type 2 diabetes mellitus with diabetic neuropathy, without long-term current use of insulin (HCC) - ICD9: 250.62, 357.2, ICD10: E11.40, E11.65 Uncontrolled. Needs blood work, asked patient to get this done in the following week. - Patient urged to quit smoking. ASCENCION LERMA MD Referring Provider: ASCENCION LERMA [[id number]] Allergies As of Date: 03/12/2018 (No Known Allergies) Date Reviewed: 03/12/2018 Reviewed by: Anat Inman Ma - Fully Assessed Reason for Visit: Recheck [92] Cmt: Follow up, DM. Patient states being hit by horse, R elbow pain Reason For Visit History Recorded Primary Visit Diagnosis:Injury of right elbow, initial encounter [S59.901A] Other Visit Diagnoses:Essential hypertension [I10] Hyperlipidemia, unspecified hyperlipidemia type [E78.5] Uncontrolled type 2 diabetes mellitus with diabetic neuropathy, without long-term current use of insulin (HCC) [E11.40, E11.65] Need for vaccination [Z23] Order(s):XR ELBOW SPECIAL VIEWS AP/LAT/OTHER RT [[id number]] Order #: [id number] FUTURE XR ELBOW GENERAL 2V AP/LAT RT [[id number]] Order #: [id number] FUTURE HGB A1C [EYIQD4D] Order #: [id number] FUTURE ALBUMIN/CREAT RATIO RND UR [SQUACR] Order #: [id number] FUTURE LIPID PANEL BASIC [SQLIPB] Order #: [id number] FUTURE PNEUMOCOCCAL IMMUNIZATION PPSV 23 [[id number]] Order #: [id number] etodolac (LODINE) 200 mg capsuleTake 1 capsule by mouth twice daily.Disp: 60 capsuleRfl: 1 XR ELBOW SPECIAL VIEWS AP/LAT/OTHER RT [[id number]] Order #: [id number]. #:[id number] Prescriptions as of 03/12/2018 Sig: ETODOLAC 200 MG CAPSULE Take 1 capsule by mouth twice* NICOTINE 21 MG/24 HR DAILY TR* Apply 1 Patch as directed angel* ESCITALOPRAM 20 MG TABLET Take 1 tablet by mouth once d* PEN NEEDLE, DIABETIC 31 GAUGE* 1 Each once daily. LORATADINE 10 MG TABLET Take 1 tablet by mouth once d* BUSPIRONE 5 MG TABLET Take 1 tablet by mouth three * INSULIN GLARGINE (U-100) 100 * Inject 10 Units subcutaneousl* METFORMIN 500 MG TABLET To take 1000 mg in the mornin* RANITIDINE 150 MG TABLET Take 1 tablet by mouth daily * BLOOD-GLUCOSE METER KIT Glucose Meter of Choice - Kit* ASPIRIN 81 MG TABLET,DELAYED * Take 1 tablet by mouth once d* ATORVASTATIN 80 MG TABLET Take 1 tablet by mouth once d* BUPROPION XL 300 MG 24 HR TAB Take 1 tablet by mouth once d* CARVEDILOL 6.25 MG TABLET Take 1 tablet by mouth twice * CLOPIDOGREL 75 MG TABLET Take 1 tablet by mouth once d* LISINOPRIL 10 MG TABLET Take 1 tablet by mouth once d* PANTOPRAZOLE 40 MG TABLET,DEL* Take 1 tablet by mouth once d* Problem List As Of Date 03/12/2018 Noted Resolved Type 1 diabetes mellitus with diabetic neuropat*INVALID FOR*05/19/2017 Hyperlipidemia [E78.5] INVALID FOR* More... HTN (hypertension) [I10] INVALID FOR* More... Back pain [M54.9] INVALID FOR* H/O degenerative disc disease [Z87.39] INVALID FOR* Right shoulder pain [M25.511] INVALID FOR* Coronary artery disease involving [place] heart *INVALID FOR* More... Uncontrolled type 2 diabetes mellitus with diab*INVALID FOR* More... Prescriptions ordered this encounter Disp Refills Start End ETODOLAC 200 MG CAPSULE 60 c* 1 03/12/2018 Route: ORAL Sig: Take 1 capsule by mouth twice daily. Encounter Status:Closed by ASCENCION LERMA MD on 03/12/18 PROGRESS Observed: 03/10/2018 Status: COMPLETED Source: [place] 4:53 PM [facility] REPOSITORY [facility] ID: [id number] Author: Sherice Marquez (Pa) Service: (none) Author Type: Physician Stationary Engineer Apprentice Type: Progress Notes Filed: 03/15/2018 5:21 PM Note Text: HISTORY AND PHYSICAL Rand Morales 1965 REFERRING PHYSICIAN: Ascencion Lerma MD CHIEF COMPLAINT: No chief complaint on file. HPI: The patient is a 52 year old male referred for endoscopy. Rand notes no colon complaints. Patient denies any change in bowel habits, weight changes, blood in stools, black tarry stools or abdominal pain. He denies any family history of colon cancer. The patient notes no history of upper GI complaints. Rand has not undergone prior endoscopy. Patient's medical history is significant for multiple strokes and heart attacks and prior stent placement. Most recent PA was in July 2017. Patient tells me he has not followed up with his automobile detailer, Dr. Reid, since his most recent PA although he was instructed to do so. He notes he has had issues with chronic chest pain and has had multiple emergency department visits. In December 2017 at which time he was taken to the ED for change in mental status and chest pain, per discharge summary this was felt to be secondary to transient ischemic attack. MRI negative for acute CVA. His blood glucose was noted to be 365 on arrival. Patient admits to being noncompliant with his diabetic medication, states he does not really understand how he is supposed to be taking this and sometimes just does not take his medicine. He states he has trouble remembering to go to his doctor appointments. More recently, the patient was at the ED again on 02/28/18 with chest pain. EKG showed normal sinus rhythm without ischemia, unchanged from prior. Negative troponin. Patient was discharged and instructed to use NSAIDs for possible costochondritis. PAST MEDICAL HISTORY Diagnosis Date - CVA (cerebral vascular accident) ([facility]CC) 2015 x2 - Diabetes (HCC) - GERD (gastroesophageal reflux disease) - Heart attack ([facility]CC) 07/2017 several - Hyperlipidemia PAST SURGICAL HISTORY Procedure Laterality Date - ELBOW SURGERY HX Left 1999 - HEART CATHETERIZATION 2017 stents x7 - UPPER EXTREM DPLX MAMMARY MAP Current Outpatient Prescriptions: escitalopram oxalate (LEXAPRO) 20 mg tablet Take 1 tablet by mouth once daily. loratadine (CLARITIN) 10 mg tablet Take 1 tablet by mouth once daily. busPIRone (BUSPAR) 5 mg tablet Take 1 tablet by mouth three times daily. metFORMIN (GLUCOPHAGE) 500 mg tablet To take 1000 mg in the morning and 500 in the evening ranitidine (ZANTAC) 150 mg tablet Take 1 tablet by mouth daily at bedtime. aspirin, enteric coated (ADULT LOW DOSE ASPIRIN) 81 mg EC tablet Take 1 tablet by mouth once daily. atorvastatin (LIPITOR) 80 mg tablet Take 1 tablet by mouth once daily. buPROPion XL (WELLBUTRIN XL) 300 mg 24 hr tablet Take 1 tablet by mouth once daily. carvedilol (COREG) 6.25 mg tablet Take 1 tablet by mouth twice daily with meals. clopidogrel (PLAVIX) 75 mg tablet Take 1 tablet by mouth once daily. lisinopril (PRINIVIL) 10 mg tablet Take 1 tablet by mouth once daily. pantoprazole DR (PROTONIX) 40 mg tablet Take 1 tablet by mouth once daily. nicotine (NICODERM) 21 mg/24 hr Apply 1 Patch as directed every 24 hours. insulin needles, DISPOSABLE, 31 gauge x 5/16 ndle 1 Each once daily. insulin glargine (BASAGLAR KWIKPEN U-100 INSULIN) 100 unit/mL (3 mL) inpn Inject 10 Units subcutaneously daily at bedtime. Blood-Glucose Meter monitoring kit Glucose Meter of Choice - Kit - Dx: Type 2 DM - Uncontrolled E11.65 No current facility-administered medications for this visit. ALLERGIES: Patient has no known allergies. PERSONAL HISTORY: Social History Marital status: Single Spouse name: Years of education: Number of children: Social History Main Topics Smoking status: Current Some Day Smoker Packs/day: 2.00 Years: 40.00 Smokeless tobacco: Never Used Comment: is down to 1 pack a day for 2 years Alcohol use: Yes 2.0 oz/week Shots of liquor: 2 per week Comment: occasionally/rarely Drug use: Yes Comment: marijuana use Sexual activity: Not Currently FAMILY HISTORY: No family history on file. REVIEW OF SYMPTOMS: The review of systems data was entered by the nurse and reviewed by il Nursing Notes: Bimal Hernandez LPN 03/07/2018 3:24 PM Signed REVIEW OF SYSTEMS: General: The patient notes fatigue, denies weight loss, denies weight gain, denies feeling hot, and denies feelings of cold. Eyes: The patient denies glaucoma, denies eye injury/surgery, wears glasses or contacts. Ear/Nose/Throat: The patient NOTES allergies, denies hayfever, denies ear infections, and denies bloody noses. Cardiovascular: The patient denies chest pain, NOTES heart disease, NOTES high blood pressure,NOTES cardiac stent, NOTES prior heart attack, denies irregular heart beat, NOTES high cholesterol, denies poor circulation, denies heart failure, other cardiac issues, denies claudication, denies cold feet, denies peripheral arterial stent. Respiratory: The patient denies tuberculosis, denies pneumonia, denies frequent cough, denies pulmonary embolism, denies shortness of breath, and denies coughing up blood. Gastrointestinal: The patient denies difficulty swallowing, NOTES acid reflux, denies ulcers, denies vomiting, denies jaundice/hepatitis, denies gallbladder problems, denies black or tarry stools, denies hemorrhoids, denies bleeding from rectum, denies diverticulitis, denies constipation, denies diarrhea, denies loss of stool control, and denies hernias. Kidney/Bladder: The patient denies kidney stones, denies urine infections, and denies bloody urine. Skin: The patient denies a history of skin cancer, denies bleeding/changing moles, and denies a history of skin rash. Neurologic: The patient denies a history of epilepsy/convulsions, denies headaches, denies head/spinal injuries, and NOTES stroke/TIA. Psychiatric: The patient denies psychiatric medications, NOTES depression, and denies voices, denies substance abuse. Endocrine: The patient denies thyroid disorders, NOTES diabetes, and denies hormonal problems. Hematologic: The patient denies a history of bruising, denies bleeding, and denies anemia, denies blood clots. Infections: The patient denies a history of measles and mumps, denies rheumatic fever, and denies sexually transmitted diseases. Musculoskeletal: The patient denies back pain/injury, denies back problems, denies sciatica, denies knee/foot trouble, denies arthritis, or denies gout. When was patient's last Mammogram screening? N/a Last Colonoscopy: N/A Bimal Hernandez LPN I have confirmed and edited as necessary, the PFSH and ROS obtained by others. PHYSICAL EXAMINATION: General: The patient is 52 year old male, well nourished, well hydrated in no acute distress. The patient is oriented to time, place, and person. VITALS: Blood pressure 110/72, pulse 80, weight 102.9 kg (226 lb 12.8 oz). Body mass index is 30.76 kg/m?. HEENT: Normal cephalic, ataumatic, pupils are equally round, sclera are anicteric, mucous membranes are moist, oropharynx is clear. Neck has no masses, asymmetry or lymphadenopathy. Respiratory: Clear to auscultation and percussion. Normal respiratory excursion and pattern. Cardiac: Examination is regular rate and rhythm. Abdominal exam: Soft, nontender, with no palpable masses Rectal exam: exam deferred Extremities: no clubbing, cyanosis or edema. No adenopathy. Other: LABORATORY VALUES: As Noted RADIOLOGIC STUDIES: As Noted Assessment IMPRESSION: encounter for screening colonoscopy. Multiple medical comorbidities and noncompliance. Recent hospitalization for AMS with suspected TIA-recommend postponing elective colonoscopy by 6 months from that episode PLAN: Patient not medically optimized to undergo an elective procedure at this time. Patient recently hospitalized for altered mental status suspected to be secondary to transient ischemic attack, has not followed up with cardiology as instructed, and admits to not taking his medications as instructed including his diabetic regimen, frequent ED visits for episodes of chest pain. Recommend medical maximization prior to any elective procedure-follow up with PCP for patient education regarding diabetic medications and control of blood sugars prior to procedure, and follow up with cardiology as instructed previously. I have asked my office staff to help facilitate these appointments for the patient. Had long discussion with patient regarding importance of follow- up with his PCP and specialists and importance of taking his medications as instructed. Patient instructed to follow up with us after medical optimization-will follow up with PCP and cardiology for clearance. Would not plan for colonoscopy before June 2018 due to possible TIA in December- would wait a full 6 months from this episode to do any elective procedure Patient verbalized understanding of all above and agreed with the plan Diagnoses: (Z12.11) Encounter for screening for malignant neoplasm of colon (primary encounter diagnosis) (I25.2) History of PA (myocardial infarction) (Z86.73) History of TIA (transient ischemic attack) and stroke (R07.89) Other chest pain (E11.40, E11.65) Uncontrolled type 2 diabetes mellitus with diabetic neuropathy, without long-term current use of insulin (HCC) Return to Clinic: The patient is instructed to follow-up with me after follow-up with PCP and cardiology for medical maximization I spent 30 minutes in the visit, with more than 50% of the total [id number] time of the visit in counseling / coordination of care. THEODORA Wang Observed: 03/07/2018 Status: COMPLETED Source: [place] 3:15 PM [facility] REPOSITORY Office Visit (GENSWS) LORENRAND ([id number]) 1965 M Date Time Provider Department 03/07/18 3:15 PM SHERICE MARQUEZ) GENJIMYS During your visit today, we recorded the following information about you: Pulse Blood pressure Weight 80/minute 110/72 102.9 kg Bimla Hernandez PLANT ANATOMY TEACHER 03/07/2018 3:24 PM Signed REVIEW OF SYSTEMS: General: The patient notes fatigue, denies weight loss, denies weight gain, denies feeling hot, and denies feelings of cold. Eyes: The patient denies glaucoma, denies eye injury/surgery, wears glasses or contacts. Ear/Nose/Throat: The patient NOTES allergies, denies hayfever, denies ear infections, and denies bloody noses. Cardiovascular: The patient denies chest pain, NOTES heart disease, NOTES high blood pressure,NOTES cardiac stent, NOTES prior heart attack, denies irregular heart beat, NOTES high cholesterol, denies poor circulation, denies heart failure, other cardiac issues, denies claudication, denies cold feet, denies peripheral arterial stent. Respiratory: The patient denies tuberculosis, denies pneumonia, denies frequent cough, denies pulmonary embolism, denies shortness of breath, and denies coughing up blood. Gastrointestinal: The patient denies difficulty swallowing, NOTES acid reflux, denies ulcers, denies vomiting, denies jaundice/hepatitis, denies gallbladder problems, denies black or tarry stools, denies hemorrhoids, denies bleeding from rectum, denies diverticulitis, denies constipation, denies diarrhea, denies loss of stool control, and denies hernias. Kidney/Bladder: The patient denies kidney stones, denies urine infections, and denies bloody urine. Skin: The patient denies a history of skin cancer, denies bleeding/changing moles, and denies a history of skin rash. Neurologic: The patient denies a history of epilepsy/convulsions, denies headaches, denies head/spinal injuries, and NOTES stroke/TIA. Psychiatric: The patient denies psychiatric medications, NOTES depression, and denies voices, denies substance abuse. Endocrine: The patient denies thyroid disorders, NOTES diabetes, and denies hormonal problems. Hematologic: The patient denies a history of bruising, denies bleeding, and denies anemia, denies blood clots. Infections: The patient denies a history of measles and mumps, denies rheumatic fever, and denies sexually transmitted diseases. Musculoskeletal: The patient denies back pain/injury, denies back problems, denies sciatica, denies knee/foot trouble, denies arthritis, or denies gout. When was patient's last Mammogram screening? N/a Last Colonoscopy: N/A Bimal Marquez PA-C 03/15/2018 5:21 PM Addendum HISTORY AND PHYSICAL Rand Morales 1965 REFERRING PHYSICIAN: Ascencion Lerma MD CHIEF COMPLAINT: No chief complaint on file. HPI: The patient is a 52 year old male referred for endoscopy. Rand notes no colon complaints. Patient denies any change in bowel habits, weight changes, blood in stools, black tarry stools or abdominal pain. He denies any family history of colon cancer. The patient notes no history of upper GI complaints. Rand has not undergone prior endoscopy. Patient's medical history is significant for multiple strokes and heart attacks and prior stent placement. Most recent PA was in July 2017. Patient tells me he has not followed up with his automobile detailer, Dr. Reid, since his most recent PA although he was instructed to do so. He notes he has had issues with chronic chest pain and has had multiple emergency department visits. In December 2017 at which time he was taken to the ED for change in mental status and chest pain, per discharge summary this was felt to be secondary to transient ischemic attack. MRI negative for acute CVA. His blood glucose was noted to be 365 on arrival. Patient admits to being noncompliant with his diabetic medication, states he does not really understand how he is supposed to be taking this and sometimes just does not take his medicine. He states he has trouble remembering to go to his doctor appointments. More recently, the patient was at the ED again on 02/28/18 with chest pain. EKG showed normal sinus rhythm without ischemia, unchanged from prior. Negative troponin. Patient was discharged and instructed to use NSAIDs for possible costochondritis. PAST MEDICAL HISTORY Diagnosis Date - CVA (cerebral vascular accident) ([facility]) 2015 x2 - Diabetes (HCC) - GERD (gastroesophageal reflux disease) - Heart attack ([facility]) 07/2017 several - Hyperlipidemia PAST SURGICAL HISTORY Procedure Laterality Date - ELBOW SURGERY HX Left 1999 - HEART CATHETERIZATION 2016 stents x7 - UPPER EXTREM DPLX MAMMARY MAP Current Outpatient Prescriptions: escitalopram oxalate (LEXAPRO) 20 mg tablet Take 1 tablet by mouth once daily. loratadine (CLARITIN) 10 mg tablet Take 1 tablet by mouth once daily. busPIRone (BUSPAR) 5 mg tablet Take 1 tablet by mouth three times daily. metFORMIN (GLUCOPHAGE) 500 mg tablet To take 1000 mg in the morning and 500 in the evening ranitidine (ZANTAC) 150 mg tablet Take 1 tablet by mouth daily at bedtime. aspirin, enteric coated (ADULT LOW DOSE ASPIRIN) 81 mg EC tablet Take 1 tablet by mouth once daily. atorvastatin (LIPITOR) 80 mg tablet Take 1 tablet by mouth once daily. buPROPion XL (WELLBUTRIN XL) 300 mg 24 hr tablet Take 1 tablet by mouth once daily. carvedilol (COREG) 6.25 mg tablet Take 1 tablet by mouth twice daily with meals. clopidogrel (PLAVIX) 75 mg tablet Take 1 tablet by mouth once daily. lisinopril (PRINIVIL) 10 mg tablet Take 1 tablet by mouth once daily. pantoprazole DR (PROTONIX) 40 mg tablet Take 1 tablet by mouth once daily. nicotine (NICODERM) 21 mg/24 hr Apply 1 Patch as directed every 24 hours. insulin needles, DISPOSABLE, 31 gauge x 5/16 ndle 1 Each once daily. insulin glargine (BASAGLAR KWIKPEN U-100 INSULIN) 100 unit/mL (3 mL) inpn Inject 10 Units subcutaneously daily at bedtime. Blood-Glucose Meter monitoring kit Glucose Meter of Choice - Kit - Dx: Type 2 DM - Uncontrolled E11.65 No current facility-administered medications for this visit. ALLERGIES: Patient has no known allergies. PERSONAL HISTORY: Social History Marital status: Single Spouse name: Years of education: Number of children: Social History Main Topics Smoking status: Current Some Day Smoker Packs/day: 2.00 Years: 40.00 Smokeless tobacco: Never Used Comment: is down to 1 pack a day for 2 years Alcohol use: Yes 2.0 oz/week Shots of liquor: 2 per week Comment: occasionally/rarely Drug use: Yes Comment: marijuana use Sexual activity: Not Currently FAMILY HISTORY: No family history on file. REVIEW OF SYMPTOMS: The review of systems data was entered by the nurse and reviewed by me Nursing Notes: Bimal Hernandez LPN 03/07/2018 3:24 PM Signed REVIEW OF SYSTEMS: General: The patient notes fatigue, denies weight loss, denies weight gain, denies feeling hot, and denies feelings of cold. Eyes: The patient denies glaucoma, denies eye injury/surgery, wears glasses or contacts. Ear/Nose/Throat: The patient NOTES allergies, denies hayfever, denies ear infections, and denies bloody noses. Cardiovascular: The patient denies chest pain, NOTES heart disease, NOTES high blood pressure,NOTES cardiac stent, NOTES prior heart attack, denies irregular heart beat, NOTES high cholesterol, denies poor circulation, denies heart failure, other cardiac issues, denies claudication, denies cold feet, denies peripheral arterial stent. Respiratory: The patient denies tuberculosis, denies pneumonia, denies frequent cough, denies pulmonary embolism, denies shortness of breath, and denies coughing up blood. Gastrointestinal: The patient denies difficulty swallowing, NOTES acid reflux, denies ulcers, denies vomiting, denies jaundice/hepatitis, denies gallbladder problems, denies black or tarry stools, denies hemorrhoids, denies bleeding from rectum, denies diverticulitis, denies constipation, denies diarrhea, denies loss of stool control, and denies hernias. Kidney/Bladder: The patient denies kidney stones, denies urine infections, and denies bloody urine. Skin: The patient denies a history of skin cancer, denies bleeding/changing moles, and denies a history of skin rash. Neurologic: The patient denies a history of epilepsy/convulsions, denies headaches, denies head/spinal injuries, and NOTES stroke/TIA. Psychiatric: The patient denies psychiatric medications, NOTES depression, and denies voices, denies substance abuse. Endocrine: The patient denies thyroid disorders, NOTES diabetes, and denies hormonal problems. Hematologic: The patient denies a history of bruising, denies bleeding, and denies anemia, denies blood clots. Infections: The patient denies a history of measles and mumps, denies rheumatic fever, and denies sexually transmitted diseases. Musculoskeletal: The patient denies back pain/injury, denies back problems, denies sciatica, denies knee/foot trouble, denies arthritis, or denies gout. When was patient's last Mammogram screening? N/a Last Colonoscopy: N/A Bimal Hernandez LPN I have confirmed and edited as necessary, the PFSH and ROS obtained by others. PHYSICAL EXAMINATION: General: The patient is 52 year old male, well nourished, well hydrated in no acute distress. The patient is oriented to time, place, and person. VITALS: Blood pressure 110/72, pulse 80, weight 102.9 kg (226 lb 12.8 oz). Body mass index is 30.76 kg/m?. HEENT: Normal cephalic, ataumatic, pupils are equally round, sclera are anicteric, mucous membranes are moist, oropharynx is clear. Neck has no masses, asymmetry or lymphadenopathy. Respiratory: Clear to auscultation and percussion. Normal respiratory excursion and pattern. Cardiac: Examination is regular rate and rhythm. Abdominal exam: Soft, nontender, with no palpable masses Rectal exam: exam deferred Extremities: no clubbing, cyanosis or edema. No adenopathy. Other: LABORATORY VALUES: As Noted RADIOLOGIC STUDIES: As Noted Assessment IMPRESSION: encounter for screening colonoscopy. Multiple medical comorbidities and noncompliance. Recent hospitalization for AMS with suspected TIA-recommend postponing elective colonoscopy by 6 months from that episode PLAN: Patient not medically optimized to undergo an elective procedure at this time. Patient recently hospitalized for altered mental status suspected to be secondary to transient ischemic attack, has not followed up with cardiology as instructed, and admits to not taking his medications as instructed including his diabetic regimen, frequent ED visits for episodes of chest pain. Recommend medical maximization prior to any elective procedure- follow up with PCP for patient education regarding diabetic medications and control of blood sugars prior to procedure, and follow up with cardiology as instructed previously. I have asked my office staff to help facilitate these appointments for the patient. Had long discussion with patient regarding importance of follow-up with his PCP and specialists and importance of taking his medications as instructed. Patient instructed to follow up with us after medical optimization- will follow up with PCP and cardiology for clearance. Would not plan for colonoscopy before June 2018 due to possible TIA in December-would wait a full 6 months from this episode to do any elective procedure Patient verbalized understanding of all above and agreed with the plan Diagnoses: (Z12.11) Encounter for screening for malignant neoplasm of colon (primary encounter diagnosis) (I25.2) History of PA (myocardial infarction) (Z86.73) History of TIA (transient ischemic attack) and stroke (R07.89) Other chest pain (E11.40, E11.65) Uncontrolled type 2 diabetes mellitus with diabetic neuropathy, without long-term current use of insulin (HCC) Return to Clinic: The patient is instructed to follow-up with me after follow-up with PCP and cardiology for medical maximization I spent 30 minutes in the visit, with more than 50% of the total [id number] time of the visit in counseling / coordination of care. Sherice Marquez PA-C Referring Provider: ASCENCION LERMA [[id number]] Allergies As of Date: 03/07/2018 (No Known Allergies) Date Reviewed: 03/07/2018 Reviewed by: Sherice Marquez (Pa) - Fully Assessed Primary Visit Diagnosis:Encounter for screening for malignant neoplasm of colon [Z12.11] Other Visit Diagnoses:History of PA (myocardial infarction) [I25.2] History of TIA (transient ischemic attack) and stroke [Z86.73] Other chest pain [R07.89] Uncontrolled type 2 diabetes mellitus with diabetic neuropathy, without long-term current use of insulin (HCC) [E11.40, E11.65] Prescriptions as of 03/07/2018 Sig: ESCITALOPRAM 20 MG TABLET Take 1 tablet by mouth once d* LORATADINE 10 MG TABLET Take 1 tablet by mouth once d* BUSPIRONE 5 MG TABLET Take 1 tablet by mouth three * METFORMIN 500 MG TABLET To take 1000 mg in the mornin* RANITIDINE 150 MG TABLET Take 1 tablet by mouth daily * ASPIRIN 81 MG TABLET,DELAYED * Take 1 tablet by mouth once d* ATORVASTATIN 80 MG TABLET Take 1 tablet by mouth once d* BUPROPION XL 300 MG 24 HR TAB Take 1 tablet by mouth once d* CARVEDILOL 6.25 MG TABLET Take 1 tablet by mouth twice * CLOPIDOGREL 75 MG TABLET Take 1 tablet by mouth once d* LISINOPRIL 10 MG TABLET Take 1 tablet by mouth once d* PANTOPRAZOLE 40 MG TABLET,DEL* Take 1 tablet by mouth once d* NICOTINE 21 MG/24 HR DAILY TR* Apply 1 Patch as directed angel* PEN NEEDLE, DIABETIC 31 GAUGE* 1 Each once daily. INSULIN GLARGINE (U-100) 100 * Inject 10 Units subcutaneousl* BLOOD-GLUCOSE METER KIT Glucose Meter of Choice - Kit* Problem List As Of Date 03/07/2018 Noted Resolved Type 1 diabetes mellitus with diabetic neuropat*INVALID FOR*05/19/2017 Hyperlipidemia [E78.5] INVALID FOR* More... HTN (hypertension) [I10] INVALID FOR* More... Back pain [M54.9] INVALID FOR* H/O degenerative disc disease [Z87.39] INVALID FOR* Right shoulder pain [M25.511] INVALID FOR* Coronary artery disease involving [place] heart *INVALID FOR* More... Uncontrolled type 2 diabetes mellitus with diab*INVALID FOR* More... Visit Notes: >> Bimal Hernandez LPN Mon Mar 07, 2018 3:23 PM Status: Signed REVIEW OF SYSTEMS: General: The patient notes fatigue, denies weight loss, denies weight gain, denies feeling hot, and denies feelings of cold. Eyes: The patient denies glaucoma, denies eye injury/surgery, wears glasses or contacts. Ear/Nose/Throat: The patient NOTES allergies, denies hayfever, denies ear infections, and denies bloody noses. Cardiovascular: The patient denies chest pain, NOTES heart disease, NOTES high blood pressure,NOTES cardiac stent, NOTES prior heart attack, denies irregular heart beat, NOTES high cholesterol, denies poor circulation, denies heart failure, other cardiac issues, denies claudication, denies cold feet, denies peripheral arterial stent. Respiratory: The patient denies tuberculosis, denies pneumonia, denies frequent cough, denies pulmonary embolism, denies shortness of breath, and denies coughing up blood. Gastrointestinal: The patient denies difficulty swallowing, NOTES acid reflux, denies ulcers, denies vomiting, denies jaundice/hepatitis, denies gallbladder problems, denies black or tarry stools, denies hemorrhoids, denies bleeding from rectum, denies diverticulitis, denies constipation, denies diarrhea, denies loss of stool control, and denies hernias. Kidney/Bladder: The patient denies kidney stones, denies urine infections, and denies bloody urine. Skin: The patient denies a history of skin cancer, denies bleeding/changing moles, and denies a history of skin rash. Neurologic: The patient denies a history of epilepsy/convulsions, denies headaches, denies head/spinal injuries, and NOTES stroke/TIA. Psychiatric: The patient denies psychiatric medications, NOTES depression, and denies voices, denies substance abuse. Endocrine: The patient denies thyroid disorders, NOTES diabetes, and denies hormonal problems. Hematologic: The patient denies a history of bruising, denies bleeding, and denies anemia, denies blood clots. Infections: The patient denies a history of measles and mumps, denies rheumatic fever, and denies sexually transmitted diseases. Musculoskeletal: The patient denies back pain/injury, denies back problems, denies sciatica, denies knee/foot trouble, denies arthritis, or denies gout. When was patient's last Mammogram screening? N/a Last Colonoscopy: N/A Bimal Hernandez LPN Follow-up and Disposition History Recorded Letter Text Encounter Status:Closed by SHERICE MARQUEZ PA-C on 03/10/18 12 LEAD ELECTROCARDIOGRAM Observed: 03/03/2018 Status: F Source: [place] 1:24 PM [facility] Cardiovascular Services [address] [place] [address] 12 Lead EKG 02/28/18 2204 MR#: [id number] Acct: [id number] Name: RAND MORALES Rep #: [id number] : 1965 52 From: Yuriy Corbin MD Attending Dr: Status: DEP ER Ordering Dr: Jonathan Tariq MD Date: 02/28/18 Location: ED Sex: M C Admitted: Test Reason : CP Blood Pressure : / mmHG Vent. Rate : 082 BPM Atrial Rate : 082 BPM P-R Int : 160 ms QRS Dur : 090 ms QT Int : 388 ms P-R-T Axes : 034 112 084 degrees QTc Int : 453 ms Normal sinus rhythm Low voltage QRS (limb leads) Confirmed by YURIY CORBIN MD ([id number]), scientific publications editor WILLEM IGNACIO ([id number]) on 03/03/2018 1:24:31 PM Referred By: UG Confirmed By:YURIY CORBIN MD 03/03/18 1324 Date Yuriy Corbin MD CC: Ascencion Lerma MD; Jonathan Tariq MD Signed EMERGENCY DEPARTMENT Observed: 03/01/2018 Status: F Source: [place] SUMMARY 7:20 AM [facility] REPOS[facility] Medical Records Department [address] [place] [address] Emergency Department Summary 02/28/18 2240 MR#: [id number] Acct: [id number] Name: RAND MORALES Rep #: [id number] : 1965 52 From: Jonathan Tariq MD PCP: Ascencion Lerma MD Status: DEP ER - ER Visit Summary Date of Service: 02/28/18 Chief Complaint: [] Chest pain History of Present Illness: The patient is a 52 M describes a central chest pain since 5:00 this morning. Gradual onset continuous sharp pain. Current severity is mild. Worsened by nothing. Relieved by nothing. He did try to smoke marijuana to help with the pain throughout the day. He has had some dry heaves today but no vomiting. He has had some nausea. He has had on and off loose bowel movements a couple times per day for the last week. He does have history of coronary artery disease with 2 previous stents. He has frequent visits for chest pain. He took aspirin today for tablets. He also tried 2 nitroglycerin but states it never works for him. There is no relief. He had a heart cath in October of this year that showed his left circumflex and right coronary artery stents were patent. He had a proximal diagonal small vessel with severe disease. In December of this year he had a CTA of his chest that showed nothing acute. He states he gets chest pain 1-2 times per month chronically. Physical Examination: [] Vital signs reviewed General: Well-nourished well-developed Head: Normocephalic atraumatic Eyes: Pupils equal round and reactive to light extraocular movements intact ENT: TMs clear no hemotympanum no trauma Neck: Nontender full range of motion Cardiovascular: Regular rate rhythm no murmurs normal S1-S2 Respiratory: No distress clear to auscultation bilaterally chest nontender Abdomen: Soft nontender nondistended normal bowel sounds no masses Back: Nontender no CVA tenderness Extremities: Nontender active range of motion 4 extremities no trauma Skin: Normal color no trauma Neuro alert oriented cranial nerves II through XII intact normal strength sensation reflexes Test Results: [] Emergency Department Course and Treatment: [] EKG shows sinus rhythm at a rate rate of 82 without STEMI pattern. No acute ischemia. Unchanged from prior. Chest x-ray lab work obtained. Patient given IV morphine and declined nitroglycerin. He took aspirin at home. He was given IV Zofran. He is resting comfortably. CBC is normal except hemoglobin 16.7. Chemistries normal except glucose 297. This is chronically elevated secondary to diabetes. Troponin is negative less than 0.01. Chest x-ray shows nothing acute. At this time I have a low suspicion for acute coronary syndrome PE or dissection. This could be costochondritis related. The patient has a very small vessel that does have some significant disease on his heart cath. This is not something that can be stented apparently. I do not think he is having an acute infarct with a negative troponin. He has been having discomfort all day. I feel he can use anti-inflammatories and follow-up as an outpatient. He will return if he worsens. I do not think he needs a CTA of his chest. He just had one recently which was negative Treatment Plan: [] Disposition: [] Impression: [] Recurrent chest pain Nausea with dry heaves This note was generated with Sciona dictation software. It may contain incorrect words, spelling, and punctuation that were not noted in review of the chart prior to signing ED Disposition - Plan for ED Patient: Chief Complaint: Chest Pain Referrals: Ascencion Lerma MD [Primary Care Provider] - What to do if you have Problems For any increased pain, shortness of breath, bleeding, nausea or vomiting, chest pain, or any unexpected problems, contact your Primary Care Provider. Call [facility] ([phone]) or report to the closest Emergency Room. Call 911 if necessary. 03/01/18719 <Electronically signed by Jonathan Tariq MD> Date Jonathan Tariq MD Cosigner Signature (If Indicated): Date CC: Ascencion Lerma MD DISCHARGE INSTRUCTION Observed: 03/01/2018 Status: F Source: [place] 7:20 AM [facility] Medical Records Department [address] [place] [address] Discharge Instruction 02/28/18 2318 MR#: [id number] Acct: [id number] Name: RAND MORALES Rep #: [id number] : 1965 52 From: Jonathan Tariq MD PCP: Ascencion Lerma MD Status: DEP ER ED Disposition - Plan for ED Patient: Disposition: Home or Assisted Living Chief Complaint: Chest Pain Instructions: ED Chest Pain NonCardiac Prescriptions: Ondansetron [Zofran Odt] 4 mg PO Q8H PRN PRN #10 tab PRN Reason: Nausea Referrals: Ascencion Lerma MD [Primary Care Provider] - Zach Reid MD [STAFF PHYSICIAN] - What to do if you have Problems For any increased pain, shortness of breath, bleeding, nausea or vomiting, chest pain, or any unexpected problems, contact your Primary Care Provider. Call [facility] ([phone]) or report to the closest Emergency Room. Call 911 if necessary. 03/01/18719 <Electronically signed by Jonathan Tariq MD> Date Jonathan Tariq MD Cosigner Signature (If Indicated): Date CC: Ascencion Lerma MD CHEST PA AND LATERAL Observed: 02/28/2018 Status: F Source: [place] 10:40 PM [facility] Imaging Services [address] [place] [address] Chest PA and Lateral MR#: [id number] Acct: [id number] Name: RAND MORALES Rep #: [id number] : 1965 M 52 From: Bladimir Palencia MD PCP: Ascencion Lerma MD Status: REG ER Study: Chest PA and Lateral Date of Exam: 02/28/18 Exam# [id number] Ordering Dr: Jonathan Tariq MD STUDY: X-RAY CHEST REASON FOR EXAM: Male, 52 years old. Chest pain TECHNIQUE: Frontal and lateral views of the chest COMPARISON: 01/18/2018 FINDINGS: The lungs are clear. There are no pleural effusions. There is no pneumothorax. The heart is normal in size. The visualized osseous structures are within normal limits. RAD/Chest PA and Lateral IMPRESSION: No acute thoracic pathology. Electronically Signed: Bladimir Palencia, at 23:07 EDT Tel , Service support , CC: Ascencion Lerma MD; Jonathan Tariq MD Student Outreach Coordinator: Signed CBC W/DIFF, AUTOMATED Collected: 02/28/2018 Status: F Source: [place] 10:26 PM [facility] REPOS[facility] TYPE CODE TESTS RESULT OUT OF RANGE REFERENCE UNITS LAB L100.1000 4.4-11.0 K/mm3 Normal WBC 6.4 LAB L100.1200 4.6-6.2 M/mm3 Normal RBC 5.38 LAB L100.1300 13.0-16.5 g/dl High HGB 16.7 LAB L100.1400 40-54 % Normal HCT 47.2 LAB L100.1500 80-94 fL Normal MCV 87.7 LAB L100.1600 27.0-32.0 pg Normal MCH 31.0 LAB L100.1700 32-36 g/gl Normal MCHC 35.4 LAB L100.1810 11.6-14.6 % Normal RDW CV 13.0 LAB L100.1820 35.1-43.9 fl Normal RDW SD 41.2 LAB L100.1900 150-450 K/mm3 Normal PLT 158 LAB L100.2000 6.2-12.0 fl High MPV 12.2 LAB L100.2100 47-70 % Normal NEUT% 63.1 LAB L100.2200 19-41 % Normal LY% 29.0 LAB L100.2300 0-10 % Normal MONO% 5.7 LAB L100.2400 0-5 % Normal EO% 1.9 LAB L100.2500 0-1 % Normal BASO% 0.3 LAB L100.2550 0.0-0.9 % Normal IM GRAN % 0.000 Result Comment: IG% - Immature Granulocytes (promyelocytes, myelocytes and metamyelocytes) > 1% indicates that a LEFT SHIFT is Present. LAB L100.2620 2.0-7.7 X10 3/uL Normal Absolute Neut 4.0 LAB L100.2720 0.83-4.51 X10 3/ul Normal Absolute Lymph 1.85 Performed By: #### L100.0100 #### [facility] [address] [place], [address] BASIC METABOLIC Collected: 02/28/2018 Status: F Source: [place] PROFILE (BMP) 10:26 PM [facility] TYPE CODE TESTS RESULT OUT OF RANGE REFERENCE UNITS LAB L501.0100 74-106 mg/dL High GLU 297 Result Comment: Glucose result greater than or equal to 200 mg/dL suggests DIABETES MELLITUS per A.D.A. criteria. Please note revised GLUCOSE reference range effective 2017. LAB L501.1000 7-18 mg/dL Normal BUN 12 LAB L501.1100 0.70-1.30 mg/dL Normal CREAT,SERUM 0.95 Result Comment: The validity of the calculated GFR AND GFRAA in patients over 70 years has not been determined. Clinical correlation is essential. LAB L501.1110 >60 mL/min Normal EST GFR 88 Result Comment: Non- GFR Calc LAB L501.1115 >60 mL/min Normal EST GFR - AA 107 Result Comment: GFR Calc LAB L501.1255 ml/min Normal Estimated CRCL 99.84 LAB L501.1300 10-20 RATIO Normal BUN/CRE 12.6 LAB L501.2200 8.5-10 mg/dL Normal .1 CA 9.4 LAB L501.5300 136-14 mmol/L Normal 5 NA 138 LAB L501.5600 3.5-5. mmol/L Normal 1 K 3.8 LAB L501.5900 98-107 mmol/L Normal CL 101 LAB L501.6100 21.0-3 mmol/L Normal 2.0 CO2 27.0 LAB L501.6200 5-15 Normal GAP 10 Performed By: #### L500.2500, L501.4010 #### [facility] [address] [place], [address] TROPONIN-I Collected: 02/28/2018 Status: F Source: [place] 10:26 PM [facility] TYPE CODE TESTS RESULT OUT OF RANGE REFERENCE UNITS LAB L501.4010 <0.045 ng/mL Normal < 0.015 TROPONIN-I Result Comment: TROPONIN-I EXPECTED VALUES <0.045 Negative 0.045 - 0.590 Consistent with Cardiac Damage > OR = 0.600 Critical Value Not every elevated troponin is indicative of PA. These values should be used with clinical judgement in examining the patient's clinical picture for diagnosis. To establish a diagnosis of PA versus myocardial injury, there must be a demonstrated rise and/or fall in the troponin values, in addition to ischemic symptoms, EKG changes, new regional wall motion abnormality, and/or angiographical evidence. PLEASE NOTE: REFERENCE RANGES EDITED 18 Performed By: #### L500.2500, L501.4010 #### [facility] [address] [facility] [place], [address] PROGRESS Observed: 02/22/2018 Status: COMPLETED Source: [place] 10:19 AM [facility] REPOSITORY HNO ID: [id number] Author: Celia Browne Cma Service: (none) Author Type: (none) Type: Progress Notes Filed: 02/22/2018 10:21 AM Note Text: I called and spoke with Rand and he states he will come in prior to his appointment to get labs done. He's not had a DM eye exam done within the last year and knows he's due for one. He will hopefully be working on scheduling this. The patient has been identified by name and date of : YES I have scheduled the patient for an appointment on 03/12/2018. The patient will report to the lab prior to the visit. PHMA Documentation 02/22/2018 Opts out of Information Assurance Health No Appointments Scheduled Scheduled PCP Appt DM2 with No CASSI (No Data) DM2 with No Urine Alb Lab Ordered DM2 with No DFE (No Data) A1C > 8.9 Lab Ordered Celia [place] [facility] PROGRESS Observed: 02/22/2018 Status: COMPLETED Source: [place] 10:16 AM [facility] REPOSITORY HNO ID: [id number] Author: Celia Browne Cdl B Driver Service: (none) Author Type: (none) Type: Progress Notes Filed: 02/22/2018 10:21 AM Note Text: [facility] C[facility] GAP REGISTRY DOCUMENTATION (OUTSIDE TEAMLET) Provider Action/FYI: PSR Action/FYI: upcoming appointment - NEEDS REMINDED OF APPOINTMENT, W/LABS PRIOR AND SEE IF HE'S HAD DM RETINAL EXAM DONE! Patient identified by name and date of . Last BP/Labs: Blood Pressure: Last 3 Encounter BP Readings: Date: BP: 01/13/2018 122/78 11/12/2017 124/70 11/03/2017 126/78 Lipids: Cholesterol, Total (mg/dL) Date Value 11/16/2016 146 HDL Cholesterol (mg/dL) Date Value 11/16/2016 25 LDL Cholesterol (mg/dL) Date Value 11/16/2016 Unable to calculate due to increased Triglycerides. See LDL-Chol, Direct. Triglyceride (mg/dL) Date Value 11/16/2016 475 HGB A1C: Lab Results Component Value Date HBA1C 10.9 11/16/2016 HBA1C 11.8 08/08/2009 TSH: No results found for: TSH) ? Patient has the following care gap registry disease diagnosis:DM ? HTN ? Hyperlipidemia ? Patient has the following open care gaps: ? ? Health Maintenance Due: ? DILATED RETINAL EXAM due on 1965 ? DIABETIC FOOT EXAM due on 1981 ? ONE PNEUMOVAX PRIOR TO AGE 65 due on 1981 ? DTAP,TDAP,TD(1 - Tdap) due on 1984 ? COLORECTAL CANCER SCREENING,SEE MODIFIER due on 2015 ? ZOSTER VACCINE (SHINGRIX)(1 of 2) due on 2015 ? HBA1C due on 05/19/2017 - ordered ? URINE ALBUMIN CREATININE RATIO due on 11/16/2017 - ordered ? LDL due on 11/16/2017 - ordered ? Last office visit: 01/13/2018 ? Future office visit: upcoming appointment - NEEDS REMINDED OF APPOINTMENT, W/LABS PRIOR AND SEE IF HE'S HAD DM RETINAL EXAM DONE! Celia Browne Cma CNPTOUTREACH Observed: 02/22/2018 Status: COMPLETED Source: [place] 12:00 AM [facility] REPOSITORY Patient Outreach ([facility]) RAND MORALES ([id number]) 1965 M Date Time Provider Department 02/22/18 CELIA BROWNE) [facility] During your visit today, we recorded the following information about you: Celia Browne Cma 02/22/2018 10:[address] [facility] CARE GAP REGISTRY DOCUMENTATION (OUTSIDE TEAMLET) Provider Action/FYI: PSR Action/FYI: upcoming appointment - NEEDS REMINDED OF APPOINTMENT, W/LABS PRIOR AND SEE IF HE'S HAD DM RETINAL EXAM DONE! Patient identified by name and date of . Last BP/Labs: Blood Pressure: Last 3 Encounter BP Readings: Date: BP: 01/13/2018 122/78 11/12/2017 124/70 11/03/2017 126/78 Lipids: Cholesterol, Total (mg/dL) Date Value 11/16/2016 146 HDL Cholesterol (mg/dL) Date Value 11/16/2016 25 LDL Cholesterol (mg/dL) Date Value 11/16/2016 Unable to calculate due to increased Triglycerides. See LDL-Chol, Direct. Triglyceride (mg/dL) Date Value 11/16/2016 475 HGB A1C: Lab Results Component Value Date HBA1C 10.9 11/16/2016 HBA1C 11.8 08/08/2009 TSH: No results found for: TSH) ? Patient has the following care gap registry disease diagnosis:DM ? HTN ? Hyperlipidemia ? Patient has the following open care gaps: ? ? Health Maintenance Due: ? DILATED RETINAL EXAM due on 1965 ? DIABETIC FOOT EXAM due on 1981 ? ONE PNEUMOVAX PRIOR TO AGE 65 due on 1981 ? DTAP,TDAP,TD(1 - Tdap) due on 1984 ? COLORECTAL CANCER SCREENING,SEE MODIFIER due on 2015 ? ZOSTER VACCINE (SHINGRIX)(1 of 2) due on 2015 ? HBA1C due on 05/19/2017 - ordered ? URINE ALBUMIN CREATININE RATIO due on 11/16/2017 - ordered ? LDL due on 11/16/2017 - ordered ? Last office visit: 01/13/2018 ? Future office visit: upcoming appointment - NEEDS REMINDED OF APPOINTMENT, W/LABS PRIOR AND SEE IF HE'S HAD DM RETINAL EXAM DONE! Celia Browne Cdl B Driver 02/22/2018 10:21 AM Signed I called and spoke with Rand and he states he will come in prior to his appointment to get labs done. He's not had a DM eye exam done within the last year and knows he's due for one. He will hopefully be working on scheduling this. The patient has been identified by name and date of : YES I have scheduled the patient for an appointment on 03/12/2018. The patient will report to the lab prior to the visit. [facility] Documentation 02/22/2018 Opts out of [facility] No Appointments Scheduled Scheduled PCP Appt DM2 with No CASSI (No Data) DM2 with No Urine Alb Lab Ordered DM2 with No DFE (No Data) A1C > 8.9 Lab Ordered Celia Browne Cdl B Driver Allergies As of Date: 02/22/2018 (No Known Allergies) Date Reviewed: 01/13/2018 Reviewed by: Ellie Lui) KATE Carroll - Fully Assessed Reason for Visit: [facility]/Care Gap Outreach [[id number]] Prescriptions as of 02/22/2018 Sig: NICOTINE 21 MG/24 HR DAILY TR* Apply 1 Patch as directed angel* ESCITALOPRAM 20 MG TABLET Take 1 tablet by mouth once d* PEN NEEDLE, DIABETIC 31 GAUGE* 1 Each once daily. LORATADINE 10 MG TABLET Take 1 tablet by mouth once d* BUSPIRONE 5 MG TABLET Take 1 tablet by mouth three * INSULIN GLARGINE (U-100) 100 * Inject 10 Units subcutaneousl* METFORMIN 500 MG TABLET To take 1000 mg in the mornin* RANITIDINE 150 MG TABLET Take 1 tablet by mouth daily * BLOOD-GLUCOSE METER KIT Glucose Meter of Choice - Kit* ASPIRIN 81 MG TABLET,DELAYED * Take 1 tablet by mouth once d* ATORVASTATIN 80 MG TABLET Take 1 tablet by mouth once d* BUPROPION XL 300 MG 24 HR TAB Take 1 tablet by mouth once d* CARVEDILOL 6.25 MG TABLET Take 1 tablet by mouth twice * CLOPIDOGREL 75 MG TABLET Take 1 tablet by mouth once d* LISINOPRIL 10 MG TABLET Take 1 tablet by mouth once d* PANTOPRAZOLE 40 MG TABLET,DEL* Take 1 tablet by mouth once d* Problem List As Of Date 02/22/2018 Noted Resolved Type 1 diabetes mellitus with diabetic neuropat*INVALID FOR*05/19/2017 Hyperlipidemia [E78.5] INVALID FOR* More... HTN (hypertension) [I10] INVALID FOR* More... Back pain [M54.9] INVALID FOR* H/O degenerative disc disease [Z87.39] INVALID FOR* Right shoulder pain [M25.511] INVALID FOR* Coronary artery disease involving ekuk heart *INVALID FOR* More... Uncontrolled type 2 diabetes mellitus with diab*INVALID FOR* More... Encounter Status:Closed by CELIA BROWNE CMA on 02/22/18 CNCO Observed: 02/11/2018 Status: COMPLETED Source: [place] 12:00 AM [facility] REPOSITORY Letter Text Yuriy Valle MD [facility] [address] [place] [address] Rand Morales February 11, 2018 Rand Morales [address] [place] [address] Dear Mr. Morales, It was noted that you did not keep your scheduled appointment on 02/11/2018. It is important to contact the office in advance if you are unable to keep your appointment so that it is available for other patients. Your medical care is important to us. Please call our office to reschedule an appointment. Sincerely, Yuriy Valle MD 12 LEAD ELECTROCARDIOGRAM Observed: 02/07/2018 Status: F Source: [place] 8:36 AM [facility] REPOSITORY [facility] Cardiovascular Services [address] [place] [address] [place] [address] 12 Lead EKG 01/18/18 0258 MR#: [id number] Acct: [id number] Name: RAND MORALES Rep #: [id number] : 1965 52 From: Tye Lawson MD Attending Dr: Status: DEP ER Ordering Dr: Perico Mueller MD Date: 01/18/18 Location: ED Sex: M C Admitted: Test Reason : REPEAT CP Blood Pressure : / mmHG Vent. Rate : 083 BPM Atrial Rate : 083 BPM P-R Int : 172 ms QRS Dur : 096 ms QT Int : 392 ms P-R-T Axes : 051 111 082 degrees QTc Int : 460 ms Sinus rhythm with occasional Premature ventricular complexes Inferior-posterior infarct , age undetermined Abnormal ECG Confirmed by TYE LAWSON ([id number]), scientific publications editor WILLEM IGNACIO ([id number]) on 01/31/2018 5:26:09 PM Referred By: LUIS Confirmed By:TYE LAWSON 01/31/18 1726 Date Tye Lawson MD CC: Ascencion Lerma MD; Perico Mueller MD Signed 12 LEAD ELECTROCARDIOGRAM Observed: 02/07/2018 Status: F Source: [place] 8:36 AM [facility] REPOSITORY [facility] Cardiovascular Services [address] [place] [address] 12 Lead EKG 01/18/18 0023 MR#: [id number] Acct: [id number] Name: RAND MORALES Rep #: [id number] : 1965 52 From: Tye Lawson MD Attending Dr: Status: DEP ER Ordering Dr: Perico Mueller MD Date: 01/18/18 Location: ED Sex: M C Admitted: Test Reason : CP Blood Pressure : / mmHG Vent. Rate : 091 BPM Atrial Rate : 091 BPM P-R Int : 152 ms QRS Dur : 088 ms QT Int : 368 ms P-R-T Axes : 043 113 078 degrees QTc Int : 452 ms Normal sinus rhythm Normal ECG Confirmed by TYE LAWSON ([id number]), scientific publications editor WILLEM IGNACIO ([id number]) on 01/31/2018 5:26:31 PM Referred By: LUIS Confirmed By:TYE LAWSON 01/31/18 172 Date Tye Lawson MD CC: Ascencion Lerma MD; Perico Mueller MD Signed ELECTROENCEPHALOGRAM Observed: 01/23/2018 Status: F Source: [place] 2:56 PM [facility] REPOSITORY [facility] Pulmonary Services/Neurology [address] [place] [address] MR#: [id number] Acct: [id number] Name: RAND MORALES Marce Rep #: [id number] : 1965 52 From: Zan Mauricio MD Referring Dr: Pardeep Gutierrez MD Status: DIS ACE Ordering Dr: Date: Location: [place] [id number] Sex: M C - Electroencephalogram Date of service: 01/09/2018 History EEG is being done in this 52 yr M to rule out seizures EEG Description: This is an 18 channel EEG with 10-20 lead placement system. Bipolar montages, Referential and Circumferential montages were reviewed. Photic stimulation and Hyperventilation were performed. The posterior dominant background rhythm is 8 HZ synchronous, symmetric, reacting to eye opening and closing. Photic stimulation elicited normal driving response but no abnormal photoparoxysmal response, Hyperventilation did not elicit any abnormal photoparoxysmal response. Sleep was identified. The background rhythm is in the normal alpha frequency range. There was no epileptiform discharges or electrographic seizures noted during this recording. EEG Interpretation This is a normal awake and asleep EEG. There is no epileptiform discharges or electrographic seizures noted during the record. 01/23/18 1456 <Electronically signed by Zan Mauricio MD> Date Zan Mauricio MD CC: Martha Mauricio MD; Ascencion Lerma MD; Pardeep Gutierrez MD Date Dictated: 01/10/181316 Date Transcribed: 01/10/181316 Student Outreach Coordinator: RSPaty Signed DISCHARGE INSTRUCTION Observed: 01/18/2018 Status: F Source: [place] 5:07 AM [facility] REPOSITORY [facility] Medical Records Department [address] [place] [address] Discharge Instruction 01/18/18505 MR#: [id number] Acct: [id number] Name: RAND MORALES Rep #: [id number] : 1965 52 From: Perico Mueller MD PCP: Ascencion Lerma MD Status: REG ER ED Disposition - Plan for ED Patient: Chief Complaint: Chest Pain Instructions: ED Chest Pain Atypical Unkn Cause Referrals: Ascencion Lerma MD [Primary Care Provider] - What to do if you have Problems For any increased pain, shortness of breath, bleeding, nausea or vomiting, chest pain, or any unexpected problems, contact your Primary Care Provider. Call [facility] ([phone]) or report to the closest Emergency Room. Call 911 if necessary. 01/18/18 0507 <Electronically signed by Perico Mueller MD> Date Perico Mueller MD Cosigner Signature (If Indicated): Date CC: Ascencion Lerma MD EMERGENCY DEPARTMENT Observed: 01/18/2018 Status: F Source: [place] SUMMARY 5:06 AM [facility] REPOSITORY [facility] Medical Records Department [address] [place] [address] Emergency Department Summary 01/18/18 0505 MR#: [id number] Acct: [id number] Name: RAND MORALES Rep #: [id number] : 1965 52 From: Perico Mueller MD PCP: Ascencion Lerma MD Status: REG ER - ER Visit Summary Date of Service: 01/18/18 Chief Complaint: Chest pain History of Present Illness: The patient is a 52 M who presents with chest pain. It began 1-2 hours prior to presentation. He describes it as sharp and stabbing. He currently rates it as 6 out of 10. No exacerbating or relieving factors. He also complains of shortness of breath. He also reports nausea vomiting and diarrhea today. No near syncope or syncope. He also complains of congestion and sore throat. He was admitted in October for chest pain nausea vomiting and diarrhea and had a cardiac catheterization. He also had a recent admit for transient confusion and was complaining of very similar chest pain at that time as well. Physical Examination: Afebrile vitals are stable Heart regular rate and rhythm Lungs are clear Abdomen soft Extremities nontender 2+ radial pulses Alert and oriented Test Results: EKG shows sinus rhythm at a rate of 91 with no acute ischemic changes. Repeat EKG unchanged. Laboratory studies unremarkable including negative troponin. Repeat troponin remains negative. Chest x-ray shows no acute process and CTA of the chest is also negative. Emergency Department Course and Treatment: Patient presents with atypical chest pain with 2 recent admissions with similar symptoms. He has a normal repeat EKG and troponin. I do feel he is safe for discharge and outpatient follow-up as I feel this is very unlikely to be an acute coronary syndrome. Patient discharged. Treatment Plan: [] Disposition: Discharge Impression: Atypical chest pain This note was generated with [employer] dictation software. It may contain incorrect words, spelling, and punctuation that were not noted in review of the chart prior to signing ED Disposition - Plan for ED Patient: Chief Complaint: Chest Pain Referrals: Ascencion Lerma MD [Primary Care Provider] - What to do if you have Problems For any increased pain, shortness of breath, bleeding, nausea or vomiting, chest pain, or any unexpected problems, contact your Primary Care Provider. Call [employer] Registry ([phone]) or report to the closest Emergency Room. Call 911 if necessary. 01/18/18 0506 <Electronically signed by Perico Mueller MD> Date Perico Mueller MD Cosigner Signature (If Indicated): Date CC: Ascencion Lerma MD TROPONIN-I Collected: 01/18/2018 Status: F Source: [place] 3:28 AM [facility] REPOSITORY TYPE CODE TESTS RESULT OUT OF RANGE REFERENCE UNITS LAB L501.4010 <0.045 ng/mL Normal < 0.015 TROPONIN-I Result Comment: TROPONIN-I EXPECTED VALUES <0.045 Negative 0.045 - 0.590 Consistent with Cardiac Damage > OR = 0.600 Critical Value Not every elevated troponin is indicative of PA. These values should be used with clinical judgement in examining the patient's clinical picture for diagnosis. To establish a diagnosis of PA versus myocardial injury, there must be a demonstrated rise and/or fall in the troponin values, in addition to ischemic symptoms, EKG changes, new regional wall motion abnormality, and/or angiographical evidence. PLEASE NOTE: REFERENCE RANGES EDITED 18 Performed By: #### L501.4010 #### [facility] [address] [place], [address] CTA CHEST W/WO Observed: 01/18/2018 Status: F Source: [place] CONTRAST 1:31 AM [facility] REPOSITORY [facility] Imaging Services [address] [place] [address] CTA Chest W/WO Contrast MR#: [id number] Acct: [id number] Name: RAND MORALES Rep #: [id number] : 1965 M 52 From: Tylor Allison MD PCP: Ascencion Lerma MD Status: REG ER Study: CTA Chest W/WO Contrast Date of Exam: 01/18/18 Exam# [id number] Ordering Dr: Perico Mueller MD STUDY: CTA CHEST REASON FOR EXAM: Male, 52 years old. Chest pain for one hour with emesis and diarrhea. History of hypertension RADIATION DOSAGE (If Supplied By Facility): CTDIvol = ( 17.87 ) mGy, DLP = ( 67.05 ) mGycm TECHNIQUE: The examination was performed with the intravenous administration of 100ML ml of Isovue 370 contrast material. Post-processing of the angiographic images was performed, with multiplanar reformation. Individualized dose optimization techniques were used for this CT. COMPARISON: None. FINDINGS: Normal enhancement of the main pulmonary artery and right and left pulmonary arteries. Normal enhancement of the bilateral peripheral pulmonary arteries. There is no demonstrated pulmonary embolism. Normal thoracic aorta and visualized great vessels. There is no demonstrated aortic dissection. Normal heart and pericardium. There are calcifications of the coronary arteries. Normal mediastinum. Normal hilar regions. Normal visualized trachea and bronchi. The lungs are well expanded. There are no pulmonary infiltrates. There are no pleural effusions. Normal chest wall structures. There are degenerative changes of thoracic spine. Normal visualized upper abdomen. CT/CTA Chest W/WO Contrast IMPRESSION: No demonstrated pulmonary embolism. No infiltrate is seen. Electronically Signed: Tylor Allison MD at 2:32 EDT Tel , Service support , CC: Ascencion Lerma MD; Perico Mueller MD Student Outreach Coordinator: Signed CHEST PA AND LATERAL Observed: 01/18/2018 Status: F Source: [place] 12:37 AM [facility] REPOSITORY [facility] Imaging Services [address] [place] [address] Chest PA and Lateral MR#: [id number] Acct: [id number] Name: RAND MORALES Rep #: [id number] : 1965 52 From: Tylor Allison MD PCP: Ascencion Lerma MD Status: REG ER Study: Chest PA and Lateral Date of Exam: 01/18/18 Exam# [id number] Ordering Dr: Perico Mueller MD STUDY: X-RAY CHEST REASON FOR EXAM: Male, 52 years old. Chest pain. TECHNIQUE: PA and lateral views of the chest. COMPARISON: 01/08/2018. FINDINGS: There are mild hypoventilatory changes. No focal infiltrate is seen. There is no demonstrated pleural abnormality. Normal size heart. Normal mediastinum and sang. Normal visualized pulmonary arteries. Normal visualized aortic arch and descending thoracic aorta. Normal visualized thoracic spine. Normal visualized ribs, clavicles, and shoulders. There is no demonstrated abnormality of the visualized soft tissue structures of the upper abdomen. RAD/Chest PA and Lateral IMPRESSION: No active pulmonary disease Electronically Signed: Tylor Allison MD at 1:14 EDT Tel , Service support , CC: Ascencion Lerma MD; Perico Mueller MD Student Outreach Coordinator: Signed CBC W/DIFF, AUTOMATED Collected: 01/18/2018 Status: F Source: [place] 12:30 AM [facility] REPOSITORY TYPE CODE TESTS RESULT OUT OF RANGE REFERENCE UNITS LAB L100.1000 4.4-11.0 K/mm3 Normal WBC 7.4 LAB L100.1200 4.6-6.2 M/mm3 Normal RBC 5.30 LAB L100.1300 13.0-16.5 g/dl Normal HGB 16.3 LAB L100.1400 40-54 % Normal HCT 46.2 LAB L100.1500 80-94 fL Normal MCV 87.2 LAB L100.1600 27.0-32.0 pg Normal MCH 30.8 LAB L100.1700 32-36 g/gl Normal MCHC 35.3 LAB L100.1810 11.6-14.6 % Normal RDW CV 13.0 LAB L100.1820 35.1-43.9 fl Normal RDW SD 41.9 LAB L100.1900 150-450 K/mm3 Normal PLT 172 LAB L100.2000 6.2-12.0 fl Normal MPV 11.3 LAB L100.2100 47-70 % Low NEUT% 44.8 LAB L100.2200 19-41 % High LY% 41.7 LAB L100.2300 0-10 % High MONO% 10.4 LAB L100.2400 0-5 % Normal EO% 2.0 LAB L100.2500 0-1 % Normal BASO% 0.7 LAB L100.2550 0.0-0.9 % Normal IM GRAN % 0.400 Result Comment: IG% - Immature Granulocytes (promyelocytes, myelocytes and metamyelocytes) > 1% indicates that a LEFT SHIFT is Present. LAB L100.2620 2.0-7.7 X10 3/uL Normal Absolute Neut 3.3 LAB L100.2720 0.83-4.51 X10 3/ul Normal Absolute Lymph 3.10 Performed By: #### L100.0100 #### [facility] [place], [address] BASIC METABOLIC Collected: 01/18/2018 Status: F Source: [place] PROFILE (BMP) 12:30 AM [facility] REPOSITORY TYPE CODE TESTS RESULT OUT OF RANGE REFERENCE UNITS LAB L501.0100 74-106 mg/dL High GLU 346 Result Comment: Glucose result greater than or equal to 200 mg/dL suggests DIABETES MELLITUS per A.D.A. criteria. Please note revised GLUCOSE reference range effective 2017. LAB L501.1000 7-18 mg/dL Normal BUN 13 LAB L501.1100 0.70-1.30 mg/dL Normal CREAT,SERUM 0.95 Result Comment: The validity of the calculated GFR AND GFRAA in patients over 70 years has not been determined. Clinical correlation is essential. LAB L501.1110 >60 mL/min Normal EST GFR 89 Result Comment: Non- GFR Calc LAB L501.1115 >60 mL/min Normal EST GFR - AA 107 Result Comment: GFR Calc LAB L501.1255 ml/min Normal Estimated CRCL 96.88 LAB L501.1300 10-20 RATIO Normal BUN/CRE 13.7 LAB L501.2200 8.5-10 mg/dL Normal .1 CA 9.7 LAB L501.5300 136-14 mmol/L Low 5 NA 134 LAB L501.5600 3.5-5. mmol/L Normal 1 K 3.8 LAB L501.5900 98-107 mmol/L Normal CL 99 LAB L501.6100 21.0-3 mmol/L Normal 2.0 CO2 27.0 LAB L501.6200 5-15 Normal GAP 8 Performed By: #### L500.2500, L501.4010 #### [facility] [address] [facility] [place], [address] TROPONIN-I Collected: 01/18/2018 Status: F Source: [place] 12:30 AM [facility] REPOSITORY TYPE CODE TESTS RESULT OUT OF RANGE REFERENCE UNITS LAB L501.4010 <0.045 ng/mL Normal < 0.015 TROPONIN-I Result Comment: TROPONIN-I EXPECTED VALUES <0.045 Negative 0.045 - 0.590 Consistent with Cardiac Damage > OR = 0.600 Critical Value Not every elevated troponin is indicative of PA. These values should be used with clinical judgement in examining the patient's clinical picture for diagnosis. To establish a diagnosis of PA versus myocardial injury, there must be a demonstrated rise and/or fall in the troponin values, in addition to ischemic symptoms, EKG changes, new regional wall motion abnormality, and/or angiographical evidence. PLEASE NOTE: REFERENCE RANGES EDITED 18 Performed By: #### L500.2500, L501.4010 #### [facility] [place], [address] PROGRESS Observed: 01/13/2018 Status: COMPLETED Source: [place] 10:18 AM [facility] [place] REPOSITORY HNO ID: [id number] Author: Sabra (Ramon) Matthew Service: (none) Author Type: Nurse Practitioner Type: Progress Notes Filed: 01/13/2018 11:49 AM Note Text: CC: Patient presents with: Hospital F/U: arm and hand numbness HPI Rand Morales is a 52 year old male who presents today for [facility] ER follow up. Patient was evaluated on 01/08/18 after patient was notable confused at a libertarian. Patient states he never lost consciousness but he couldn't remember his family members names. EMS was called and patient developed chest pain on the way to the hospital. Pain relieved with morphine but not nitro. Patient also complained of tingling to his bilateral feet. Patient was admitted for further work up. CT and MRI were completed with no acute processes identified, previous frontal lobe infarct and chronic small vessel disease noted. Chest CTA negative. Chest Xray negative. Carotid duplex showed mild bilateral stenosis <50%. EKG showed NSR HR 97. Blood glucose 365 on arrival. DIABETES MELLITUS: Patient reports ongoing polydipsia and polyuria, intermittent numbness and tingling of LUE and tingling in his bilateral feet. He does not follow a diabetic diet and eats a lot of fast food. Compliance with medication is intermittent. He reports he does not believe he has been injecting his insulin correctly after being in the hospital. He reports he does not have insulin needles for injection. He reports checking his glucose on a infrequent to not at all basis schedule . Patient's last HgA1C was Hemoglobin A1C (%) Date Value 11/16/2016 10.9 HBA1CGucci (%) Date Value 08/08/2009 11.8 ) Last Ophthalmology exam was more than 20 years ago per patient. Patient also complains of generalized aches and pains and is requesting narcotic pain medication. Stating he either takes something for pain or he smokes marijuana. He reports he started smoking again after his brother unexpectedly in October and is hoping to quit again, he is requesting nicotine patches today. Patient also complains of some sinus congestion, mild intermittent cough and phlegm production mostly in the morning. REVIEW OF SYSTEMS General: no fevers, no chills, no night sweats, no recurrent infections, no change in appetite, no change in energy and no significant changes in weight HEENT: no frequent or significant headaches, no changes in hearing, no visual changes, no nose bleeds, See HPI Neck: no lumps, no pain and no swelling Respiratory: no wheezing, no shortness of breath, no hemoptysis, See HPI Cardiovascular: no chest pain, no chest pressure, no palpitations and no swelling GI: No nausea, vomiting, or diarrhea Musculoskeletal: generalized arthralgia Endocrine: no fatigue, no weight gain, no weight loss, no hair loss, no dry skin, no cold intolerance, no heat intolerance, no neck pain/pressure, no polyphagia and See HPI Neurologic: no headaches, no seizures, no dizziness, no muscle weakness, no tremor, See HPI PAST MEDICAL HISTORY Diagnosis Date - Diabetes (HCC) PAST SURGICAL HISTORY Procedure Laterality Date - UPPER EXTREM DPLX MAMMARY MAP ALLERGIES Patient has no known allergies. MEDICATIONS busPIRone (BUSPAR) 5 mg tablet Take 1 tablet by mouth three times daily. insulin glargine (BASAGLAR KWIKPEN U-100 INSULIN) 100 unit/mL (3 mL) inpn Inject 10 Units subcutaneously daily at bedtime. metFORMIN (GLUCOPHAGE) 500 mg tablet To take 1000 mg in the morning and 500 in the evening ranitidine (ZANTAC) 150 mg tablet Take 1 tablet by mouth daily at bedtime. escitalopram oxalate (LEXAPRO) 20 mg tablet Take 1 tablet by mouth once daily. Blood-Glucose Meter monitoring kit Glucose Meter of Choice - Kit - Dx: Type 2 DM - Uncontrolled E11.65 aspirin, enteric coated (ADULT LOW DOSE ASPIRIN) 81 mg EC tablet Take 1 tablet by mouth once daily. atorvastatin (LIPITOR) 80 mg tablet Take 1 tablet by mouth once daily. buPROPion XL (WELLBUTRIN XL) 300 mg 24 hr tablet Take 1 tablet by mouth once daily. carvedilol (COREG) 6.25 mg tablet Take 1 tablet by mouth twice daily with meals. clopidogrel (PLAVIX) 75 mg tablet Take 1 tablet by mouth once daily. lisinopril (PRINIVIL) 10 mg tablet Take 1 tablet by mouth once daily. pantoprazole DR (PROTONIX) 40 mg tablet Take 1 tablet by mouth once daily. insulin needles, DISPOSABLE, 31 gauge x 5/16 ndle 1 Each once daily. nicotine (NICODERM) 21 mg/24 hr Apply 1 Patch as directed every 24 hours. No family history on file. Social History Substance Use Topics - Smoking status: Former Smoker Packs/day: 2.00 Years: 40.00 Quit date: 05/20/2017 - Smokeless tobacco: Never Used Comment: is down to 1 pack a day for 2 years - Alcohol use 2.0 oz/week 2 Shots of liquor per week Comment: occasionally/rarely PHYSICAL EXAM BP 122/78 Pulse 80 Resp 16 Wt 103.4 kg (228 lb) BMI 30.92 kg/m? General Appearance: well appearing, in no acute distress, alert Pysch: mood and affect broad, mildly preoccupied with women, repeatedly discussing beautiful women with long hair in the office Skin: Skin color, texture, turgor normal for age; Head: normocephalic, atraumatic Eyes: conjunctiva pink and moist, no icterus, sclera white, non-injected Lungs: Lungs clear to auscultation. No wheezing, rhonchi, rales Heart: RRR without murmur, gallop, or rubs. No ectopy DILATED RETINAL EXAM due on 1965 DIABETIC FOOT EXAM due on 1981 ONE PNEUMOVAX PRIOR TO AGE 65 due on 1981 DTAP,TDAP,TD(1 - Tdap) due on 1984 PROSTATE CANCER SCREENING DISCUSSION due on 2015 COLORECTAL CANCER SCREENING,SEE MODIFIER due on 2015 HBA1C due on 05/19/2017 URINE ALBUMIN CREATININE RATIO due on 11/16/2017 LDL due on 11/16/2017 INFLUENZA(Season Ended) due on 04/23/2018 ASSESSMENT/PLAN: 1. Hospital discharge follow-up - ICD9: V67.59, ICD10: Z09 (primary diagnosis) - No acute or concerning exam findings - Patient doing well since discharge, concerned about patient's medication compliance related to diabetes - Follow up with previously ordered laboratory studies, patient aware he needs to complete today. - Follow up in 3 months, sooner for new or worsening symtpoms 2. Uncontrolled type 2 diabetes mellitus with diabetic neuropathy, without long-term current use of insulin (HCC) - ICD9: 250.62, 357.2, ICD10: E11.40, E11.65 uncontrolled - Continue current medications - Check HgA1C, fasting lipid panel, Urine for albumin/creatinine ratio and CMP - Blood glucose monitoring on a once a day schedule - Ophthalmology referral for eval/management of diabetic eye changes - Encouraged regular aerobic exercise and weight loss - Follow up in 3 months, sooner should any other issues arise. 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 - Patient urged to quit smoking. - PEN NEEDLE, DIABETIC 31 GAUGE X 5/16 3. Allergic rhinitis, unspecified seasonality, unspecified trigger - ICD9: 477.9, ICD10: J30.9 - LORATADINE 10 MG TABLET 4. Cough - ICD9: 786.2, ICD10: R05 - No acute or concerning exam findings, possible causes include current tobacco use vs allergic rhinitis vs GERD - Patient on Protonix and Zantac for GERD, will add Claritin - Encouraged patient to quit smoking, prescription for nicotine patches given - Follow up in 3 months, sooner for new or worsening symptoms 5. Tobacco abuse - ICD9: 305.1, ICD10: Z72.0 - Cessation encouraged. - Physiologic and physical aspects of tobacco addiction as well as strategies for quitting were discussed. - Counseling was given focusing on the harmful effects of this addiction especially given the patient's medical condition(s) which will be worsened because of the chemicals in tobacco. - Prescription for Nicotine patch given - NICOTINE 21 MG/24 HR DAILY TRANSDERMAL PATCH 6. Chronic bilateral back pain, unspecified back location - ICD9: 724.5, 338.29, ICD10: M54.9, G89.29 Chronic low back pain - CONSULT TO PAIN MGT ANESTHESIA - CONSULT TO CHIROPRACTOR 7. H/O degenerative disc disease - ICD9: V13.59, ICD10: Z87.39 - CONSULT TO PAIN MGT ANESTHESIA - CONSULT TO CHIROPRACTOR Prescription instructions reviewed with patient as applicable. Potential red flag symptoms discussed with the patient. Reviewed appropriate action plan to take if red flag symptoms occur. Patient agreeable to treatment plan. TYSHAWN Urbano Observed: 01/13/2018 Status: COMPLETED Source: [place] 10:00 AM [facility] REPOSITORY Office Visit (INTMWS) RAND MORALES ([id number]) 1965 M Date Time Provider Department 01/13/18 10:00 AM SABRA MARTINEZ ([place]) INTMWS During your visit today, we recorded the following information about you: Pulse Respiration Blood pressure Weight 80/minute 16/minute 122/78 103.4 kg Sabra Martinez APRN.CNP 01/13/2018 11:49 AM Signed CC: Patient presents with: Hospital F/U: arm and hand numbness HPI Rand Morales is a 52 year old male who presents today for [facility] ER follow up. Patient was evaluated on 01/08/18 after patient was notable confused at a libertarian. Patient states he never lost consciousness but he couldn't remember his family members names. EMS was called and patient developed chest pain on the way to the hospital. Pain relieved with morphine but not nitro. Patient also complained of tingling to his bilateral feet. Patient was admitted for further work up. CT and MRI were completed with no acute processes identified, previous frontal lobe infarct and chronic small vessel disease noted. Chest CTA negative. Chest Xray negative. Carotid duplex showed mild bilateral stenosis <50%. EKG showed NSR HR 97. Blood glucose 365 on arrival. DIABETES MELLITUS: Patient reports ongoing polydipsia and polyuria, intermittent numbness and tingling of LUE and tingling in his bilateral feet. He does not follow a diabetic diet and eats a lot of fast food. Compliance with medication is intermittent. He reports he does not believe he has been injecting his insulin correctly after being in the hospital. He reports he does not have insulin needles for injection. He reports checking his glucose on a infrequent to not at all basis schedule . Patient's last HgA1C was Hemoglobin A1C (%) Date Value 11/16/2016 10.9 HBA1C, [place] (%) Date Value 08/08/2009 11.8 ) Last Ophthalmology exam was more than 20 years ago per patient. Patient also complains of generalized aches and pains and is requesting narcotic pain medication. Stating he either takes something for pain or he smokes marijuana. He reports he started smoking again after his brother unexpectedly in October and is hoping to quit again, he is requesting nicotine patches today. Patient also complains of some sinus congestion, mild intermittent cough and phlegm production mostly in the morning. REVIEW OF SYSTEMS General: no fevers, no chills, no night sweats, no recurrent infections, no change in appetite, no change in energy and no significant changes in weight HEENT: no frequent or significant headaches, no changes in hearing, no visual changes, no nose bleeds, See HPI Neck: no lumps, no pain and no swelling Respiratory: no wheezing, no shortness of breath, no hemoptysis, See HPI Cardiovascular: no chest pain, no chest pressure, no palpitations and no swelling GI: No nausea, vomiting, or diarrhea Musculoskeletal: generalized arthralgia Endocrine: no fatigue, no weight gain, no weight loss, no hair loss, no dry skin, no cold intolerance, no heat intolerance, no neck pain/pressure, no polyphagia and See HPI Neurologic: no headaches, no seizures, no dizziness, no muscle weakness, no tremor, See HPI PAST MEDICAL HISTORY Diagnosis Date - Diabetes (HCC) PAST SURGICAL HISTORY Procedure Laterality Date - UPPER EXTREM DPLX MAMMARY MAP ALLERGIES Patient has no known allergies. MEDICATIONS busPIRone (BUSPAR) 5 mg tablet Take 1 tablet by mouth three times daily. insulin glargine (BASAGLAR KWIKPEN U-100 INSULIN) 100 unit/mL (3 mL) inpn Inject 10 Units subcutaneously daily at bedtime. metFORMIN (GLUCOPHAGE) 500 mg tablet To take 1000 mg in the morning and 500 in the evening ranitidine (ZANTAC) 150 mg tablet Take 1 tablet by mouth daily at bedtime. escitalopram oxalate (LEXAPRO) 20 mg tablet Take 1 tablet by mouth once daily. Blood-Glucose Meter monitoring kit Glucose Meter of Choice - Kit - Dx: Type 2 DM - Uncontrolled E11.65 aspirin, enteric coated (ADULT LOW DOSE ASPIRIN) 81 mg EC tablet Take 1 tablet by mouth once daily. atorvastatin (LIPITOR) 80 mg tablet Take 1 tablet by mouth once daily. buPROPion XL (WELLBUTRIN XL) 300 mg 24 hr tablet Take 1 tablet by mouth once daily. carvedilol (COREG) 6.25 mg tablet Take 1 tablet by mouth twice daily with meals. clopidogrel (PLAVIX) 75 mg tablet Take 1 tablet by mouth once daily. lisinopril (PRINIVIL) 10 mg tablet Take 1 tablet by mouth once daily. pantoprazole DR (PROTONIX) 40 mg tablet Take 1 tablet by mouth once daily. insulin needles, DISPOSABLE, 31 gauge x 5/16 ndle 1 Each once daily. nicotine (NICODERM) 21 mg/24 hr Apply 1 Patch as directed every 24 hours. No family history on file. Social History Substance Use Topics - Smoking status: Former Smoker Packs/day: 2.00 Years: 40.00 Quit date: 05/20/2017 - Smokeless tobacco: Never Used Comment: is down to 1 pack a day for 2 years - Alcohol use 2.0 oz/week 2 Shots of liquor per week Comment: occasionally/rarely PHYSICAL EXAM BP 122/78 Pulse 80 Resp 16 Wt 103.4 kg (228 lb) BMI 30.92 kg/m? General Appearance: well appearing, in no acute distress, alert Pysch: mood and affect broad, mildly preoccupied with women, repeatedly discussing beautiful women with long hair in the office Skin: Skin color, texture, turgor normal for age; Head: normocephalic, atraumatic Eyes: conjunctiva pink and moist, no icterus, sclera white, non-injected Lungs: Lungs clear to auscultation. No wheezing, rhonchi, rales Heart: RRR without murmur, gallop, or rubs. No ectopy DILATED RETINAL EXAM due on 1965 DIABETIC FOOT EXAM due on 1981 ONE PNEUMOVAX PRIOR TO AGE 65 due on 1981 DTAP,TDAP,TD(1 - Tdap) due on 1984 PROSTATE CANCER SCREENING DISCUSSION due on 2015 COLORECTAL CANCER SCREENING,SEE MODIFIER due on 2015 HBA1C due on 05/19/2017 URINE ALBUMIN CREATININE RATIO due on 11/16/2017 LDL due on 11/16/2017 INFLUENZA(Season Ended) due on 04/23/2018 ASSESSMENT/PLAN: 1. Hospital discharge follow-up - ICD9: V67.59, ICD10: Z09 (primary diagnosis) - No acute or concerning exam findings - Patient doing well since discharge, concerned about patient's medication compliance related to diabetes - Follow up with previously ordered laboratory studies, patient aware he needs to complete today. - Follow up in 3 months, sooner for new or worsening symtpoms 2. Uncontrolled type 2 diabetes mellitus with diabetic neuropathy, without long-term current use of insulin (HCC) - ICD9: 250.62, 357.2, ICD10: E11.40, E11.65 uncontrolled - Continue current medications - Check HgA1C, fasting lipid panel, Urine for albumin/creatinine ratio and CMP - Blood glucose monitoring on a once a day schedule - Ophthalmology referral for eval/management of diabetic eye changes - Encouraged regular aerobic exercise and weight loss - Follow up in 3 months, sooner should any other issues arise. 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 - Patient urged to quit smoking. - PEN NEEDLE, DIABETIC 31 GAUGE X 5/16 3. Allergic rhinitis, unspecified seasonality, unspecified trigger - ICD9: 477.9, ICD10: J30.9 - LORATADINE 10 MG TABLET 4. Cough - ICD9: 786.2, ICD10: R05 - No acute or concerning exam findings, possible causes include current tobacco use vs allergic rhinitis vs GERD - Patient on Protonix and Zantac for GERD, will add Claritin - Encouraged patient to quit smoking, prescription for nicotine patches given - Follow up in 3 months, sooner for new or worsening symptoms 5. Tobacco abuse - ICD9: 305.1, ICD10: Z72.0 - Cessation encouraged. - Physiologic and physical aspects of tobacco addiction as well as strategies for quitting were discussed. - Counseling was given focusing on the harmful effects of this addiction especially given the patient's medical condition(s) which will be worsened because of the chemicals in tobacco. - Prescription for Nicotine patch given - NICOTINE 21 MG/24 HR DAILY TRANSDERMAL PATCH 6. Chronic bilateral back pain, unspecified back location - ICD9: 724.5, 338.29, ICD10: M54.9, G89.29 Chronic low back pain - CONSULT TO PAIN MGT ANESTHESIA - CONSULT TO CHIROPRACTOR 7. H/O degenerative disc disease - ICD9: V13.59, ICD10: Z87.39 - CONSULT TO PAIN MGT ANESTHESIA - CONSULT TO CHIROPRACTOR Prescription instructions reviewed with patient as applicable. Potential red flag symptoms discussed with the patient. Reviewed appropriate action plan to take if red flag symptoms occur. Patient agreeable to treatment plan. Sabra Martinez APRN.SENIOR MEDICAL TRANSCRIPTIONIST Sabra Martinez APRN.SENIOR MEDICAL TRANSCRIPTIONIST 01/13/2018 10:35 AM Signed Please schedule eye exam GIANCARLO. Referring Provider: SELF [[id number]] Allergies As of Date: 01/13/2018 (No Known Allergies) Date Reviewed: 01/13/2018 Reviewed by: Ellie Lui) KTAE Carroll - Fully Assessed Reason for Visit: Hospital F/U [57] Cmt: arm and hand numbness Primary Visit Diagnosis:Hospital discharge follow-up [Z09] Other Visit Diagnoses:Uncontrolled type 2 diabetes mellitus with diabetic neuropathy, without long-term current use of insulin (HCC) [E11.40, E11.65] Allergic rhinitis, unspecified seasonality, unspecified trigger [J30.9] Cough [R05] Tobacco abuse [Z72.0] Chronic bilateral back pain, unspecified back location [M54.9, G89.29] H/O degenerative disc disease [Z87.39] Order(s):insulin needles, DISPOSABLE, 31 gauge x 5/16 ndle1 Each once daily.Disp: 90 EachRfl: 3 nicotine (NICODERM CQ) 21 mg/24 hrApply 1 Patch as directed every 24 hours.Disp: 14 PatchRfl: 0 CONSULT TO PAIN MGT ANESTHESIA [[id number]] Order #: [id number]: 1 loratadine (CLARITIN) 10 mg tabletTake 1 tablet by mouth once daily.Disp: 30 tabletRfl: 11 CONSULT TO CHIROPRACTOR [[id number]] Order #: [id number]: 1 Prescriptions as of 01/13/2018 Sig: BUSPIRONE 5 MG TABLET Take 1 tablet by mouth three * INSULIN GLARGINE (U-100) 100 * Inject 10 Units subcutaneousl* METFORMIN 500 MG TABLET To take 1000 mg in the mornin* RANITIDINE 150 MG TABLET Take 1 tablet by mouth daily * ESCITALOPRAM 20 MG TABLET Take 1 tablet by mouth once d* BLOOD-GLUCOSE METER KIT Glucose Meter of Choice - Kit* ASPIRIN 81 MG TABLET,DELAYED * Take 1 tablet by mouth once d* ATORVASTATIN 80 MG TABLET Take 1 tablet by mouth once d* BUPROPION XL 300 MG 24 HR TAB Take 1 tablet by mouth once d* CARVEDILOL 6.25 MG TABLET Take 1 tablet by mouth twice * CLOPIDOGREL 75 MG TABLET Take 1 tablet by mouth once d* LISINOPRIL 10 MG TABLET Take 1 tablet by mouth once d* PANTOPRAZOLE 40 MG TABLET,DEL* Take 1 tablet by mouth once d* PEN NEEDLE, DIABETIC 31 GAUGE* 1 Each once daily. NICOTINE 21 MG/24 HR DAILY TR* Apply 1 Patch as directed angel* LORATADINE 10 MG TABLET Take 1 tablet by mouth once d* Problem List As Of Date 01/13/2018 Noted Resolved Type 1 diabetes mellitus with diabetic neuropat*INVALID FOR*05/19/2017 Hyperlipidemia [E78.5] INVALID FOR* More... HTN (hypertension) [I10] INVALID FOR* More... Back pain [M54.9] INVALID FOR* H/O degenerative disc disease [Z87.39] INVALID FOR* Right shoulder pain [M25.511] INVALID FOR* Coronary artery disease involving [place] heart *INVALID FOR* More... Uncontrolled type 2 diabetes mellitus with diab*INVALID FOR* More... Other instructions from your clinician: Please schedule eye exam GIANCARLO. Prescriptions ordered this encounter Disp Refills Start End PEN NEEDLE, DIABETIC 31 GAUGE X 01/05 90 E* 3 01/13/2018 Cmt: Please dispense needles for basaglar pen Route: Misc Si Each once daily. NICOTINE 21 MG/24 HR DAILY TRANSDERM* 14 P* 0 01/13/2018 Route: TRANSDERM. Sig: Apply 1 Patch as directed every 24 hours. LORATADINE 10 MG TABLET 30 t* 11 01/13/2018 Route: ORAL Sig: Take 1 tablet by mouth once daily. Medications Discontinued During This Encounter nicotine (NICODERM) 21 mg/24 hr 30 P* 3 10/03/2016 01/13/2018 Route: TRANSDERMAL Sig: Apply 1 Patch as directed every 24 hours. Disc: Reason for discontinue is not on file. Encounter Status:Closed by SABRA MARTINEZ CNP on 01/13/18 12 LEAD ELECTROCARDIOGRAM Observed: 01/11/2018 Status: F Source: [place] 3:23 PM [facility] REPOSITORY [facility] Cardi[facility] [address] [place] [address] 12 Lead EKG 01/09/18 0228 MR#: [id number] Acct: [id number] Name: RAND MORALES Rep #: [id number] : 1965 52 From: Yony Sigala MD Attending Dr: Pardeep Gutierrez MD Status: DIS ACE Ordering Dr: Perico Mueller MD Date: 01/08/18 Location: [facility] Sex: M C Admitted: 01/09/18 Test Reason : CP Blood Pressure : / mmHG Vent. Rate : 076 BPM Atrial Rate : 076 BPM P-R Int : 176 ms QRS Dur : 090 ms QT Int : 400 ms P-R-T Axes : 033 110 086 degrees QTc Int : 450 ms Normal sinus rhythm Normal ECG When compared with ECG of 08-NOV-2017 05:28, No significant change was found Confirmed by YONY SIGALA MD ([id number]), scientific publications editor WILLEM IGNACIO ([id number]) on 01/11/2018 3:23:35 PM Referred By: MICHAEL Confirmed By:YONY SIGALA MD 01/11/18 1523 Date Yony Sigala MD CC: Ascencion Lerma MD; Pardeep Gutierrez MD; Perico Mueller MD Signed 12 LEAD ELECTROCARDIOGRAM Observed: 01/11/2018 Status: F Source: [place] 3:21 PM [facility] REPOSITORY [facility] [address] [place] [address] 12 Lead EKG 01/10/18 0148 MR#: [id number] Acct: [id number] Name: RAND MORALES Rep #: [id number] : 1965 52 From: Yony Sigala MD Attending Dr: Pardeep Gutierrez MD Status: DIS ACE Ordering Dr: Stefano Hassan MD Date: 01/10/18 Location: [facility] Sex: M C Admitted: 01/09/18 Test Reason : CP Blood Pressure : / mmHG Vent. Rate : 070 BPM Atrial Rate : 070 BPM P-R Int : 172 ms QRS Dur : 096 ms QT Int : 412 ms P-R-T Axes : 031 099 087 degrees QTc Int : 444 ms Normal sinus rhythm Normal ECG When compared with ECG of 09-JAN-2018 02:28, MANUAL COMPARISON REQUIRED, DATA IS UNCONFIRMED Confirmed by YONY SIGALA MD ([id number]), scientific publications editor WILLEM IGNACIO ([id number]) on 01/11/2018 3:21:00 PM Referred By: MICHAEL Confirmed By:YONY SIGALA MD 01/11/18 1521 Date Yony Sigala MD CC: Ascencion Lerma MD; Pardeep Gutierrez MD; Stefano Hassan MD Signed CAROTID DUPLEX Observed: 01/10/2018 Status: F Source: [place] [facility] 7:45 PM [facility] REPOSITORY [facility] [address] [place] [id number] Carotid Duplex Ultrasound 01/10/18 0830 MR#: [id number] Acct: [id number] Name: RAND MORALES Rep #: [id number] : 1965 52 From: Jesus Cazares MD Attending Dr: Pardeep Gutierrez MD Status: DIS ACE Ordering Dr: Stefano Hassan MD Date: 01/09/18 Location: [facility] Sex: M C Admitted: 01/09/18 Reason For Study: TIA Rt. Velocities/BP Lt. Velocities/BP Prox CCA 97/30 cm/sec. Prox CCA 86/25 cm/sec. Mid CCA 99/25 cm/sec. Mid CCA 83/27 cm/sec. Dist CCA 65/24 cm/sec. Dist CCA 67/22 cm/sec. Prox ICA 67/20 cm/sec. Prox ICA 64/29 cm/sec. Mid ICA 66/28 cm/sec. Mid ICA 69/28 cm/sec. Dist ICA 86/38 cm/sec. Dist ICA 103/44 cm/sec. Rt. ICA/CCA = 0.86. Lt. ICA/CCA = 1.24. Prox ECA 89/15 cm/sec. Prox ECA 101/23 cm/sec. Rt. Vert. 34/17 cm/sec. Lt. Vert. 48/20 cm/sec. Right Extracranial There is intimal thickening but no significant atherosclerotic plaque noted in the right common carotid artery. There is homogeneous, smooth atherosclerotic plaque noted in the right internal carotid artery. There is no significant atherosclerotic plaque noted in the right external carotid artery. Antegrade flow is noted in the right vertebral artery. Left Extracranial There is intimal thickening but no significant atherosclerotic plaque noted in the left common carotid artery. There is homogeneous, smooth atherosclerotic plaque noted in the left internal carotid artery. There is no significant atherosclerotic plaque noted in the left external carotid artery. Antegrade flow is noted in the left vertebral artery. Procedure Carotid Duplex [id number]. Exam performed portable in patient room. Interpretation Summary Mild (<50%) stenosis right extracranial internal carotid. Mild (<50%) stenosis left extracranial internal carotid. Flow within the vertebral arteries is antegrade bilaterally. Ordering Physician: Stefano Hassan Referring Physician: Ascencion Lerma Performed By: Rosey Sam, RDCS, RVT 01/10/18 194 Date Jesus Cazares MD CC: Ascencion Lerma MD; Pardeep Gutierrez MD; Stefano Hassan MD Date Dictated: 01/10/18829 Date Transcribed: 01/10/181943 Student Outreach Coordinator: Signed ECHOCARDIOGRAM COMPLETE Observed: 01/10/2018 Status: F Source: [place] 3:50 PM [facility] REPOSIT[facility] Cardi[facility] [address] [id number] Echo Complete 01/10/18 0810 MR#: [id number] Acct: [id number] Name: RAND MORALES Rep #: [id number] : 1965 52 From: Yony Sigala MD Attending Dr: Pardeep Gutierrez MD Status: DIS ACE Ordering Dr: Stefano Hassan MD Date: 01/09/18 Location: [facility] Sex: M C Admitted: 01/09/18 Reason For Study: TIA/CVA Procedure This was a 2D Doppler, Color Flow transthoracic echocardiogram. Exam performed portable in patient room. Left Ventricle Normal LV size. The estimated ejection fraction is 55 %. Left ventricular systolic function is normal. No evidence for diastolic dysfunction. No regional wall motion abnormalities noted. Right Ventricle Normal RV size. Normal systolic function. Atria Normal left atrium. Normal right atrium. Intact atrial septum. Mitral Valve Normal mitral valve. Tricuspid Valve Normal tricuspid valve. Unable to estimate RV systolic pressure due to inadequate jet, pulmonary artery pressure probably normal. Aortic Valve Trisinus/trileaflet aortic valve. Pulmonic Valve The pulmonic valve is not well visualized. Great Vessels Normal aortic root. The pulmonary artery is normal size. Normal inferior vena cava. Pericardium/Pleural No pericardial effusion. Medication Performed a rapid injection of agitated mix of 9 cc saline and 1cc air to assess for atrial septal defect. MMode/2D Measurements AND Calculations LVIDd: 4.5 cm IVSd: 0.96 cm Ao root diam: 3.8 cm LVIDs: 3.8 cm LVPWd: 0.98 cm LA dimension: 3.7 cm RVDd: 3.5 cm FS: 15.3 % LAV(MOD-bp): 75.7 ml LVAd ap4: 35.6 cm2 SV(MOD-sp4): 59.1 ml LAV(MOD-bp) Indexed: 33.2 ml/m2 EDV(MOD-sp4): 113.6 ml LAV(MOD-sp2): 95.0 ml EDV(sp4-el): 117.0 ml LAV(MOD-sp4): 57.0 ml LVAs ap4: 22.1 cm2 ESV(MOD-sp4): 54.5 ml ESV(sp4-el): 54.5 ml EF(MOD-sp4): 52.0 % EF(sp4-el): 53.4 % SV(sp4-el): 62.5 ml LA A4 area: 19.4 cm2 RA A4 area: 15.9 cm2 Time Measurements MV dec time: 0.19 sec Doppler Measurements AND Calculations MV E max vinicio: 97.8 cm/sec Lat Peak E' Vinicio: 9.9 cm/sec Med Peak E' Vinicio: 8.4 cm/sec MV A max vinicio: 88.3 cm/sec E/E' lat: 9.9 E/E' med: 11.7 MV E/A: 1.1 MV V2 max: 102.1 cm/sec MV P1/2t max vinicio: 102.1 cm/sec Ao V2 max: 114.6 cm/sec MV max P.2 mmHg MV P1/2t: 94.3 msec Ao max P.3 mmHg MV V2 mean: 59.2 cm/sec MV dec slope: 317.0 cm/sec2 Ao V2 mean: 73.6 cm/sec MV mean P.7 mmHg MVA(P1/2t): 2.3 cm2 Ao mean P.5 mmHg MV V2 VTI: 32.7 cm Ao V2 VTI: 23.2 cm LV V1 max: 94.0 cm/sec PA V2 max: 93.4 cm/sec LV V1 max P.5 mmHg LV V1 mean P.7 mmHg LV V1 mean: 62.1 cm/sec LV V1 VTI: 19.4 cm Interpretation Summary Normal LV size. The estimated ejection fraction is 55 %. Left ventricular systolic function is normal. No evidence for diastolic dysfunction. Intact atrial septum Structurally normal valves. Ordering Physician: Stefano Hassan Referring Physician: ASCENCION LERMA Performed By: Orlando Mcgovern RCS 01/10/18 3690 Date Yony Sigala MD CC: Ascencion Lerma MD; Pardeep Gutierrez MD; Stefano Hassan MD Date Dictated: 01/10/18 0810 Date Transcribed: 01/10/18 1550 Student Outreach Coordinator: Signed 12 LEAD ELECTROCARDIOGRAM Observed: 01/10/2018 Status: F Source: [place] 2:32 PM [facility] REPOSITORY [facility] Cardi[facility] Services [address] [place] [address] 12 Lead EKG 01/08/186 MR#: [id number] Acct: [id number] Name: LORENRAND Marce Rep #: [id number] : 1965 52 From: Yony Sigala MD Attending Dr: Pardeep Gutierrez MD Status: DIS ACE Ordering Dr: Perico Mueller MD Date: 01/08/18 Location: [facility] Sex: M C Admitted: 01/09/18 Test Reason : CHEST PAIN Blood Pressure : / mmHG Vent. Rate : 097 BPM Atrial Rate : 097 BPM P-R Int : 160 ms QRS Dur : 086 ms QT Int : 366 ms P-R-T Axes : 063 117 079 degrees QTc Int : 464 ms Normal sinus rhythm Normal ECG Confirmed by YONY SIGALA MD ([id number]), scientific publications editor WILLEM IGNACIO ([id number]) on 01/10/2018 2:32:02 PM Referred By: LUIS Confirmed By:YONY SIGALA MD 01/10/18 1432 Date Yony Sigala MD CC: Ascencion Lerma MD; Pardeep Gutierrez MD; Perico Mueller MD Signed 12 LEAD ELECTROCARDIOGRAM Observed: 01/10/2018 Status: F Source: [place] 2:32 PM [facility] REPOSITORY [facility] Cardiovascular Services [address] [place] [address] 12 Lead EKG 01/09/18 0002 MR#: [id number] Acct: [id number] Name: ENRIQUECHRISRAND Marce Rep #: [id number] : 1965 52 From: Yony Sigala MD Attending Dr: Pardeep Gutierrez MD Status: DIS ACE Ordering Dr: Stefano Hassan MD Date: 01/09/18 Location: [facility] Sex: M C Admitted: 01/09/18 Test Reason : CP Blood Pressure : / mmHG Vent. Rate : 084 BPM Atrial Rate : 084 BPM P-R Int : 162 ms QRS Dur : 092 ms QT Int : 382 ms P-R-T Axes : 061 120 086 degrees QTc Int : 451 ms Normal sinus rhythm Normal ECG Confirmed by YONY SIGALA MD ([id number]), scientific publications editor WILLEM IGNACIO ([id number]) on 01/10/2018 2:32:27 PM Referred By: LUIS Confirmed By:YONY SIGALA MD 01/10/18 1432 Date Yony Sigala MD CC: Ascencion Lerma MD; Pardeep Gutierrez MD; Stefano Hassan MD Signed DISCHARGE SUMMARY Observed: 01/10/2018 Status: F Source: [place] 1:58 PM [facility] REPOSITORY [facility] Medical Records Department [address] [place] [id number] Discharge Summary 01/10/18 1022 MR#: [id number] Acct: [id number] Name: RAND MORALES Rep #: [id number] : 1965 52 From: Pardeep Gutierrez MD PCP: Ascencion Lerma MD Status: ADM ACE Y Location: [place] [address] Discharge Date and Diagnosis - Problem List Patient Problems: Active and Suspected Problems Mental status alteration (Acute) Date of Admission: 01/09/18 Date of Discharge: 01/10/18 - Primary Discharge Diagnosis Active and Suspected Problems Mental status alteration (Acute) - Secondary Discharge Diagnosis Chronic Problems Obesity (BMI 30.0-34.9) (Chronic) Myocardial infarct, old (Chronic) S/P PTCA (percutaneous transluminal coronary angioplasty) (Chronic) S/P PTCA (percutaneous transluminal coronary angioplasty) (Chronic) CAD (coronary artery disease) (Chronic) Tobacco abuse (Chronic) CAD (coronary artery disease) (Chronic) Diabetes (Chronic) HLD (hyperlipidemia) (Chronic) HTN (hypertension) (Chronic) Hospital Course and Treatment Operations: None Summary of Care Provided: The patient is a 52 year old M old gentleman with history of CAD with previous stent placement who presented with altered mental status 1. Altered mental status suspected to be secondary to transient ischemic attack please on a monitored bed underwent subsequent evaluation with MRI which was negative for acute CVA and EEG was also ordered as part of patient's management. Patient was seen in consultation by neurology Dr. Hart who recommended for the patient to have subsequent outpatient studies including sleep study. Patient's MRI as well as EEG came back negative 2. Diabetes mellitus type 2 uncontrolled patient is on metformin did continue us also placed on Accu-Cheks before meals and at bedtime, as well as correction insulin 3. Dyslipidemia-patient is on statin therapy, continued at home dose 4. CAD with previous stent placement 5. Diabetic polyneuropathy patient is on hypertension 6. Hypertension-blood pressure controlled, home medications continued with dose adjustment as needed 7. Tobacco dependence counseled on cessation of a nicotine patch for tobacco previous 8. DVT prophylaxis; Lovenox Discharge Activity: Return to Normal Activity Home Medications: Medications to take at Discharge Aspirin [Aspirin, Baby] 81 mg PO DAILY 06/11/16 Atorvastatin Calcium [Lipitor] 80 mg PO QHS 06/11/16 Clopidogrel Bisulfate [Plavix] 75 mg PO DAILY 06/11/16 Lisinopril [Zestril] 10 mg PO DAILY 06/11/16 Nitroglycerin 0.4 mg SL PRN PRN 07/04/16 Bupropion HCl [Bupropion Xl] 300 mg PO DAILY 11/09/16 Pantoprazole Sodium [Protonix] 40 mg PO DAILY 03/18/17 Metformin HCl [Metformin HCl ER] 500 mg PO BID #0 11/08/17 Carvedilol 6.25 mg PO BID 01/09/18 Escitalopram Oxalate [Lexapro] 20 mg PO DAILY 01/09/18 Ranitidine [Zantac] 150 mg PO QHS 01/09/18 busPIRone [Buspar] 5 mg PO TID 01/09/18 Primary Care Physician: Ascencion Lerma MD [Primary Care Provider] - Please follow up with your Primary Care Physician in: in 3- 5 days Disposition: Home Minutes spent on discharge:: 35 Patient Condition:: Stable Medical Necessity - Tobacco Use Smoking Status: Current every day smoker Meaningful Use Info Meaningful Use Diagnoses (Choose all that apply): None applicable Code Visit OBSV E AND M: 52557 Observation care discharge 01/10/18 1358 <Electronically signed by Pardeep Gutierrez MD> Date Pardeep Gutierrez MD Cosigner Signature (if applicable): Date CC: Ascencion Lerma MD; Pardeep Gutierrez MD Signed BEDSIDE GLUCOSE Collected: 01/10/2018 Status: F Source: [place] 11:43 AM [facility] REPOSITORY TYPE CODE TESTS RESULT OUT OF REFERENCE UNITS RANGE LAB L501.080 70-110 mg/dL High BEDSIDE GLU 286 Result Comment: MANAGEMENT OF PATIENT CARE PER NURSING PROTOCOL Performed By: #### L501.080 #### [facility] Point of Care [address] [place] [address] DISCHARGE INSTRUCTION Observed: 01/10/2018 Status: F Source: [place] 10:21 AM [facility] REPOSITORY [facility] Medical Records Department [address] [place] [address] Instructions for Home/Discharge Instructions 01/10/18 1019 MR#: [id number] Acct: [id number] Name: RAND MORALES Rep #: [id number] : 1965 52 From: Pardeep Gutierrez MD PCP: Ascencion Lerma MD Status: ADM IN - Discharge Diagnoses Current Active Problems: Current Active and Chronic Problems Mental status alteration (Acute) You will use the following diet at home:: Cardiac Discharge Activity: Return to Normal Activity Allergies/Adverse Reactions: Allergies No Known Allergies Allergy (Verified 01/08/18 22:11) Medications to take at Discharge Aspirin [Aspirin, Baby] 81 mg PO DAILY 06/11/16 Atorvastatin Calcium [Lipitor] 80 mg PO QHS 06/11/16 Clopidogrel Bisulfate [Plavix] 75 mg PO DAILY 06/11/16 Lisinopril [Zestril] 10 mg PO DAILY 06/11/16 Nitroglycerin 0.4 mg SL PRN PRN 07/04/16 Bupropion HCl [Bupropion Xl] 300 mg PO DAILY 11/09/16 Pantoprazole Sodium [Protonix] 40 mg PO DAILY 03/18/17 Metformin HCl [Metformin HCl ER] 500 mg PO BID #0 11/08/17 Carvedilol 6.25 mg PO BID 01/09/18 Escitalopram Oxalate [Lexapro] 20 mg PO DAILY 01/09/18 Ranitidine [Zantac] 150 mg PO QHS 01/09/18 busPIRone [Buspar] 5 mg PO TID 01/09/18 Primary Care Physician: Ascencion Lerma MD [Primary Care Provider] - Please follow up with your Primary Care Physician in: in 3- 5 days Proposed Discharge Date: 01/10/18 01/10/18 1021 <Electronically signed by Pardeep Gutierrez MD> Date Pardeep Gutierrez MD CC: Ascencion Lerma MD; Dhaval Hart MD BEDSIDE GLUCOSE Collected: 01/10/2018 Status: F Source: [place] 6:51 AM [facility] REPOSITORY TYPE CODE TESTS RESULT OUT OF REFERENCE UNITS RANGE LAB L501.080 70-110 mg/dL High BEDSIDE GLU 281 Result Comment: MANAGEMENT OF PATIENT CARE PER NURSING PROTOCOL Performed By: #### L501.080 #### [facility] Point of Care [address] [place], [place] [id number] BEDSIDE GLUCOSE Collected: 01/09/2018 Status: F Source: [place] 9:22 PM [facility] REPOSITORY TYPE CODE TESTS RESULT OUT OF REFERENCE UNITS RANGE LAB L501.080 70-110 mg/dL High BEDSIDE GLU 279 Result Comment: MANAGEMENT OF PATIENT CARE PER NURSING PROTOCOL Performed By: #### L501.080 #### [facility] Point of Care [address] [place] [address] BEDSIDE GLUCOSE Collected: 01/09/2018 Status: F Source: [place] 4:51 PM [facility] REPOSITORY TYPE CODE TESTS RESULT OUT OF REFERENCE UNITS RANGE LAB L501.080 70-110 mg/dL High BEDSIDE GLU 279 Result Comment: MANAGEMENT OF PATIENT CARE PER NURSING PROTOCOL Performed By: #### L501.080 #### [facility] Point of Care [address] [place] [address] CONSULTATION Observed: 01/09/2018 Status: F Source: [place] 12:52 PM [facility] REPOSITORY [facility] Medical Records Department [address] [place] [address] Consultation 01/09/18 1124 MR#: [id number] Acct: [id number] Name: RAND MORALES Rep #: [id number] : 1965 52 From: Dhaval Hart MD PCP: Ascencion Lerma MD Status: ADM IN Y Location: [address] Reason for Consult Date of Consultation: 01/09/18 Reason for Consultation: CONFUSION History of Present Illness: The patient is a 52 year old M presented with confusion noted by others at a libertarian. apparently those around him said he wasnt right. pt remembers eating a hamburger, went to speak to his friends, then he became aware in the ambulance 15 minutes later, now feels normal except in an ambulance. pt denies memory, although son reports hes seen this two other times, no trigger, ED evaluation otherwise negative. denies diaphoresis, nausea. missed all his meds yesterday. did not smoke marijuana on the day of the event, but did the day before. +tob. +stress. reports awakens noting sore tongue/tongue biting at night Per admit H AND P: The patient is a 52 year old male w/ h/o CAD, DMII, HTN, and drug abuse admitted for altered mental status. He used illegal marijuana yesterday and today he had a cheeseburger and when he walked to his porch, he did not remember anything anymore. He started to remember when he was in the ambulance on his way to the hospital. Per family, he was confused when he sat down on this porch. He was disorientated and EMS was called. He developed chest pain during the ride to the hospital. Chest pain was substernal and sharp. It was episodic and nothing made it better or worse. Pain lasted for minutes and was relieved with morphine but not with nitroglycerin. He also has left sided facial numbness and numbness in the left hand. It appeared to be getting better after arrival to the ED. He also has paresthesia in both of his feet. Most of his symptoms appeared to be improving after several hours. He had persistent chest pain and requested morphine. Past Medical History Past Medical History (Chronic Problems): Chronic Problems Obesity (BMI 30.0-34.9) (Chronic) Myocardial infarct, old (Chronic) S/P PTCA (percutaneous transluminal coronary angioplasty) (Chronic) S/P PTCA (percutaneous transluminal coronary angioplasty) (Chronic) CAD (coronary artery disease) (Chronic) Tobacco abuse (Chronic) CAD (coronary artery disease) (Chronic) Diabetes (Chronic) HLD (hyperlipidemia) (Chronic) HTN (hypertension) (Chronic) Allergies No Known Allergies Allergy (Verified 01/08/18 22:11) Home Medications: Ambulatory Orders Medication Instructions Recorded Surgical History: angioplasty, - - LUE surgery, PCI, T+A. Psychiatric History: No pertinent psych hx Lives: With Family Smoking Status: Current every day smoker Alcohol: None Drugs: Marijuana - *Family History Sibling History Items: Heart Disease - Brother w/ CAD/PA in his 50s, fatal. Maternal History Items: Diabetes, - Paternal History Items: Diabetes, High Cholesterol, Heart Disease - CAD s/p PA in his 50s., Hypertension, - - diabetes, heart disease Review of Systems Constitutional: Denies: Chills, Fever, Weight Change HEENT: Denies: Head Aches, Sinus Congestion, Sinus Drainage Cardiovascular: Denies: Chest Pain, Palpitations Respiratory: Denies: Cough, Shortness of breath at rest, Sputum production Gastrointestinal: Denies: Abdominal Pain, Nausea, Vomiting Genitourinary: Denies: Dysuria Musculoskeletal: Denies: Joint Pain, Joint Tenderness Skin: Denies: Rash, Wounds Neurological: Denies: Numbness, Tingling, Focal weakness Psychiatric: Denies: Anxiety, Depression, Homicidal Ideations, Suicidal Ideations Hematologic/ Lymphatic: Denies: Easy Bruising, Easy Bleeding Patient Problems: Active and Suspected Problems Mental status alteration (Acute) - Physical Exam General: Alert, Oriented x3, Cooperative HEENT: Atraumatic, PERRLA, EOMI, Normocephalic Neck: Supple, No JVD, Negative Carotid Bruits Lungs: Clear to auscultation, Normal air movement Cardiovascular: Regular rate, No murmurs Abdomen: Bowel Sounds Present, Soft, Non Tender Extremities: No edema, Capillary Refill Less than 3 Seconds Skin: No rashes, No breakdown Musculoskeletal: No Tenderness to Palpation of Joints or Extremities Neurological: Cranial nerves II-XII grossly intact Psych/Mental Status: Normal Affect, Appropriate Vital Signs Temp Pulse Resp BP Pulse Ox 36.6 C 78 18 122/67 H 94 01/09/18 09:40 01/09/18 09:40 01/09/18 09:40 01/09/18 09:40 01/09/18 09:40 Oxygen Delivery Method Room Air Weight: 104.7 kg Body Mass Index (BMI) 31.3 Intake and Output for Last 24 Hours Intake Total 277 / 277 Balance 277 / 277 Laboratory Tests Past 24 Hrs WBC 6.3 RBC 4.81 Hgb 14.9 Hct 41.8 MCV 86.9 MCH 31.0 MCHC 35.6 WBC RBC Hgb Hct MCV MCH MCHC RDW RDW Differential Plt Count MPV Sodium Potassium POC Glucose POC Glucose 261 H Current Medications Generic Name Dose Route Start Last Admin Current Home Med List Medication Instructions Recorded Confirmed Type Aspirin [Aspirin, Baby] 81 mg PO DAILY 06/11/16 01/08/18 History Atorvastatin Calcium [Lipitor] 80 mg PO QHS 06/11/16 01/08/18 History MRI reviewed, no acute. He has an old wedge-shaped small right MCA distribution infarct, which was present on a CAT scan of his brain performed in 05/2016, as well as an MRI of the brain in 2008 Assessment/Plan Active and Suspected Problems Mental status alteration (Acute) Confusional episode: possible metabolic, possible seizure. no cva eeg outpt psg dc if above neg 01/09/18 1252 <Electronically signed by Dhaval Hart MD> Date Dhaval Hart MD Cosigner Signature (if applicable): Date CC: Ascencion Lerma MD; Dhaval Hart MD Signed BEDSIDE GLUCOSE Collected: 01/09/2018 Status: F Source: [place] 12:15 PM [facility] REPOSITORY TYPE CODE TESTS RESULT OUT OF REFERENCE UNITS RANGE LAB L501.080 70-110 mg/dL High BEDSIDE GLU 256 Result Comment: MANAGEMENT OF PATIENT CARE PER NURSING PROTOCOL Performed By: #### L501.080 #### [facility] Point of Care [address] [place] [address] TROPONIN-I Collected: 01/09/2018 Status: F Source: [place] 8:10 AM [facility] REPOSITORY Order Comment: 'TROP' Serial specimen #1, #2 or #3: 3 TYPE CODE TESTS RESULT OUT OF RANGE REFERENCE UNITS LAB L501.4010 <0.045 ng/mL Normal < 0.015 TROPONIN-I Result Comment: TROPONIN-I EXPECTED VALUES <0.045 Negative 0.045 - 0.590 Consistent with Cardiac Damage > OR = 0.600 Critical Value Not every elevated troponin is indicative of PA. These values should be used with clinical judgement in examining the patient's clinical picture for diagnosis. To establish a diagnosis of PA versus myocardial injury, there must be a demonstrated rise and/or fall in the troponin values, in addition to ischemic symptoms, EKG changes, new regional wall motion abnormality, and/or angiographical evidence. PLEASE NOTE: REFERENCE RANGES EDITED 18 Performed By: #### L501.4010 #### [facility] [address] [place], [address] BEDSIDE GLUCOSE Collected: 01/09/2018 Status: F Source: [place] 6:49 AM [facility] REPOSITORY TYPE CODE TESTS RESULT OUT OF REFERENCE UNITS RANGE LAB L501.080 70-110 mg/dL High BEDSIDE GLU 261 Result Comment: MANAGEMENT OF PATIENT CARE PER NURSING PROTOCOL Performed By: #### L501.080 #### [facility] Point of Care [address] [place] [address] TROPONIN-I Collected: 01/09/2018 Status: F Source: [place] 5:28 AM [facility] REPOSITORY Order Comment: 'TROP' Serial specimen #1, #2 or #3: 2 TYPE CODE TESTS RESULT OUT OF RANGE REFERENCE UNITS LAB L501.4010 <0.045 ng/mL Normal < 0.015 TROPONIN-I Result Comment: TROPONIN-I EXPECTED VALUES <0.045 Negative 0.045 - 0.590 Consistent with Cardiac Damage > OR = 0.600 Critical Value Not every elevated troponin is indicative of PA. These values should be used with clinical judgement in examining the patient's clinical picture for diagnosis. To establish a diagnosis of PA versus myocardial injury, there must be a demonstrated rise and/or fall in the troponin values, in addition to ischemic symptoms, EKG changes, new regional wall motion abnormality, and/or angiographical evidence. PLEASE NOTE: REFERENCE RANGES EDITED 18 Performed By: #### L501.4010 #### [facility] [address] [facility] [place], [address] HISTORY AND PHYSICAL Observed: 01/09/2018 Status: F Source: [place] EXAM 3:58 AM [facility] REPOSITORY [facility] Medical Records Department [address] [place] [address] History and Physical 01/09/18 0339 MR#: [id number] Acct: [id number] Name: RAND MORALES Rep #: [id number] : 1965 52 From: Stefano Hassan MD PCP: Ascencion Lerma MD Status: ADM IN Location: [place] [address] Problem List (1) Mental status alteration Status: Acute (2) Acute chest pain Status: Acute (3) CAD (coronary artery disease) Status: Chronic Qualifiers: (4) Diabetes Status: Chronic Qualifiers: (5) HLD (hyperlipidemia) Status: Chronic Qualifiers: (6) Obesity (BMI 30.0-34.9) Status: Chronic (7) Tobacco abuse Status: Chronic History of Present Illness Date of Admission: 01/09/18 Chief Complaint: Alter mental status The patient is a 52 year old male w/ h/o CAD, DMII, HTN, and drug abuse admitted for altered mental status. He used illegal marijuana yesterday and today he had a cheeseburger and when he walked to his porch, he did not remember anything anymore. He started to remember when he was in the ambulance on his way to the hospital. Per family, he was confused when he sat down on this porch. He was disorientated and EMS was called. He developed chest pain during the ride to the hospital. Chest pain was substernal and sharp. It was episodic and nothing made it better or worse. Pain lasted for minutes and was relieved with morphine but not with nitroglycerin. He also has left sided facial numbness and numbness in the left hand. It appeared to be getting better after arrival to the ED. He also has paresthesia in both of his feet. Most of his symptoms appeared to be improving after several hours. He had persistent chest pain and requested morphine. Past Medical History Past Medical History (Chronic Problems): Chronic Problems Obesity (BMI 30.0-34.9) (Chronic) Myocardial infarct, old (Chronic) S/P PTCA (percutaneous transluminal coronary angioplasty) (Chronic) S/P PTCA (percutaneous transluminal coronary angioplasty) (Chronic) CAD (coronary artery disease) (Chronic) Tobacco abuse (Chronic) CAD (coronary artery disease) (Chronic) Diabetes (Chronic) HLD (hyperlipidemia) (Chronic) HTN (hypertension) (Chronic) Allergies No Known Allergies Allergy (Verified 01/08/18 22:11) Home Medications: Ambulatory Orders Medication Instructions Recorded Surgical History: angioplasty, - - LUE surgery, PCI, T+A. Psychiatric History: No pertinent psych hx Lives: With Family Smoking Status: Current every day smoker Alcohol: None Drugs: Marijuana - *Family History Sibling History Items: Heart Disease - Brother w/ CAD/PA in his 50s, fatal. Maternal History Items: Diabetes, - Paternal History Items: Diabetes, High Cholesterol, Heart Disease - CAD s/p PA in his 50s., Hypertension, - - diabetes, heart disease Review of Systems Constitutional: Denies: Chills, Fever, Weight Change HEENT: Denies: Head Aches, Sinus Congestion, Sinus Drainage Cardiovascular: Reports: Chest Pain. Denies: Palpitations Respiratory: Denies: Cough, Shortness of breath at rest, Sputum production Gastrointestinal: Denies: Abdominal Pain, Nausea, Vomiting Genitourinary: Denies: Dysuria Musculoskeletal: Denies: Joint Pain, Joint Tenderness Skin: Denies: Rash, Wounds Neurological: Reports: Confusion. Denies: Focal weakness, Numbness, Tingling Psychiatric: Denies: Anxiety, Depression, Homicidal Ideations, Suicidal Ideations Hematologic/ Lymphatic: Denies: Easy Bruising, Easy Bleeding VTE Information - Inpt Only VTE Present on Admission: No VTE Mechan Device Prophylaxis: SCD's VTE Pharm Prophylaxis ordered?: Yes Patient Problems: Active and Suspected Problems Mental status alteration (Acute) - Physical Exam General: Alert, Oriented x3, Cooperative HEENT: Atraumatic, PERRLA, EOMI, Normocephalic Neck: Supple, No JVD, Negative Carotid Bruits Lungs: Clear to auscultation, Normal air movement Cardiovascular: Regular rate, No murmurs Abdomen: Bowel Sounds Present, Soft, Non Tender Extremities: No edema, Capillary Refill Less than 3 Seconds Skin: No rashes, No breakdown Musculoskeletal: No Tenderness to Palpation of Joints or Extremities Neurological: Cranial nerves II-XII grossly intact Psych/Mental Status: Normal Affect, Appropriate Vital Signs Temp Pulse Resp BP Pulse Ox 97.6 F L 76 18 147/100 H 97 01/09/18 02:38 01/09/18 02:38 01/09/18 02:38 01/09/18 02:38 01/09/18 02:38 Oxygen Delivery Method Room Air Weight: 104.7 kg Body Mass Index (BMI) 31.3 Laboratory Tests Past 24 Hrs WBC 6.3 RBC 4.81 Hgb 14.9 Hct 41.8 MCV 86.9 MCH 31.0 MCHC 35.6 Assessment/Plan Active and Suspected Problems Mental status alteration (Acute) 52 year old male w/ h/o CAD, DMII, HTN, and drug abuse admitted for altered mental status. 1) Altered mental status: Unclear etiology. Possible seizure vs drug. Will get ammonia, B12/folate, TSH, cortisol and RPR. CT brain negative. Supportive care. 2) Left hand numbness: Possible TIA. Workup negative. Will get carotid US and MRI in AM. C/w medical management. Consulted neuro. 3) Chest pain: Atypical. No improvement with nitro. Probably MSK. ECHO in AM. Serial trops. Supportive care. 4) Marijuana abuse: Education done. Drug is possible laced. Monitor. 01/09/18 0358 <Electronically signed by Stefano Hassan MD> Date Stefano Michael MD Cosigner Signature: Date (if applicable) CC: Ascencion Lerma MD; Stefano Hassan MD Signed AM[place] Collected: 01/09/2018 Status: F Source: [place] 2:43 AM [facility] REPOSITORY TYPE CODE TESTS RESULT OUT OF REFERENCE UNITS RANGE LAB L503.5510 11-32 umol/L High AMMONIA 47.0 Performed By: #### L503.5510 #### [facility] [address] [facility] [place], [place], [id number] CBC-COMPLETE BLOOD CNT Collected: 01/09/2018 Status: F Source: [place] NO DIFF 2:43 AM [facility] REPOSITORY TYPE CODE TESTS RESULT OUT OF RANGE REFERENCE UNITS LAB L100.1000 4.4-11.0 K/mm3 Normal WBC 6.3 LAB L100.1200 4.6-6.2 M/mm3 Normal RBC 4.81 LAB L100.1300 13.0-16.5 g/dl Normal HGB 14.9 LAB L100.1400 40-54 % Normal HCT 41.8 LAB L100.1500 80-94 fL Normal MCV 86.9 LAB L100.1600 27.0-32.0 pg Normal MCH 31.0 LAB L100.1700 32-36 g/gl Normal MCHC 35.6 LAB L100.1810 11.6-14.6 % Normal RDW CV 13.1 LAB L100.1820 35.1-43.9 fl Normal RDW SD 40.9 LAB L100.1900 150-450 K/mm3 Normal PLT 160 LAB L100.2000 6.2-12.0 fl Normal MPV 11.4 Performed By: #### L100.0500 #### [facility] [address] [place], [place], [id number] BASIC METABOLIC Collected: 01/09/2018 Status: F Source: [place] PROFILE (BMP) 2:43 AM [facility] REPOSITORY TYPE CODE TESTS RESULT OUT OF RANGE REFERENCE UNITS LAB L501.0100 74-106 mg/dL High GLU 232 Result Comment: Glucose result greater than or equal to 200 mg/dL suggests DIABETES MELLITUS per A.D.A. criteria. Please note revised GLUCOSE reference range effective 2017. LAB L501.1000 7-18 mg/dL Normal BUN 11 LAB L501.1100 0.70-1.30 mg/dL Low CREAT,SERUM 0.66 Result Comment: The validity of the calculated GFR AND GFRAA in patients over 70 years has not been determined. Clinical correlation is essential. LAB L501.1110 >60 mL/min Normal EST GFR 135 Result Comment: Non- GFR Calc LAB L501.1115 >60 mL/min Normal EST GFR - AA 163 Result Comment: GFR Calc LAB L501.1255 ml/min Normal Estimated CRCL 143.70 LAB L501.1300 10-20 RATIO BUN/CRE Normal 16.7 LAB L501.2200 8.5-10 mg/dL Low .1 CA 8.4 LAB L501.5300 136-14 mmol/L 5 NA Normal 140 LAB L501.5600 3.5-5. mmol/L 1 K Normal 3.5 LAB L501.5900 98-107 mmol/L CL Normal 104 LAB L501.6100 21.0-3 mmol/L 2.0 CO2 Normal 28.0 LAB L501.6200 5-15 GAP Normal 8 Performed By: #### L500.2500, L500.4100 #### [facility] [address] [place], [place], [address] LIPID PROFILE Collected: 01/09/2018 Status: F Source: [place] 2:43 AM [facility] REPOSITORY TYPE CODE TESTS RESULT OUT OF RANGE REFERENCE UNITS LAB L501.4900 200 mg/dL Normal CHOL 175 Result Comment: <200 mg/dL Desirable 200-240 mg/dL Borderline >240 mg/dL High Risk LAB L501.5000 mg/dL High TRIG 567 Result Comment: The drugs N-Acetylcysteine and Metamizole may falsely depress this assay. TRIGLYCERIDE IS GREATER THAN 400 mg/dL. LDL RESULT IS INVALID AND WILL NOT BE REPORTED. Serum Triglycerides Reference Interval Normal <150 mg/dL Borderline high 150 - 199 mg/dL High 200 - 499 mg/dL Very High > or = 500 mg/dL LAB L501.6400 mg/dL Low HDL 29 Result Comment: The drugs N-Acetylcysteine and Metamizole may falsely depress this assay. Reference Range HDL <40 mg/dL Low HDL Cholesterol HDL >or= 60 mg/dL High HDL Cholesterol LAB L501.6500 0-130 mg/dL Test Normal not performed LDL LAB L501.6600 5-40 mg/dL Test Normal not performed VLDL Performed By: #### L500.2500, L500.4100 #### [facility] [address] [place], [address] TROPONIN-I Collected: 01/09/2018 Status: F Source: [place] 2:43 AM [facility] REPOSITORY Order Comment: 'TROP' Serial specimen #1, #2 or #3: 1 TYPE CODE TESTS RESULT OUT OF RANGE REFERENCE UNITS LAB L501.4010 <0.045 ng/mL Normal < 0.015 TROPONIN-I Result Comment: TROPONIN-I EXPECTED VALUES <0.045 Negative 0.045 - 0.590 Consistent with Cardiac Damage > OR = 0.600 Critical Value Not every elevated troponin is indicative of PA. These values should be used with clinical judgement in examining the patient's clinical picture for diagnosis. To establish a diagnosis of PA versus myocardial injury, there must be a demonstrated rise and/or fall in the troponin values, in addition to ischemic symptoms, EKG changes, new regional wall motion abnormality, and/or angiographical evidence. PLEASE NOTE: REFERENCE RANGES EDITED 18 Performed By: #### L501.4010, L501.9520, L506.0250, L700.5000 #### [facility] [address] [place], [address] THYROID STIM HORMONE Collected: 01/09/2018 Status: F Source: [place] (TSH) 2:43 AM [facility] REPOSITORY Order Comment: 'TROP' Serial specimen #1, #2 or #3: 1 TYPE CODE TESTS RESULT OUT OF RANGE REFERENCE UNITS LAB L501.9520 0.358-3.74 uIU/mL Normal TSH 3.71 Performed By: #### L501.4010, L501.9520, L506.0250, L700.5000 #### [facility] [address] [place] [place], [address] FOLATES, (FOLIC ACID) Collected: 01/09/2018 Status: F Source: [place] 2:43 AM [facility] REPOSITORY Order Comment: 'TROP' Serial specimen #1, #2 or #3: 1 TYPE CODE TESTS RESULT OUT OF RANGE REFERENCE UNITS LAB L506.0250 3.1-55.4 ng/mL Normal FOLATES 13.60 Performed By: #### L501.4010, L501.9520, L506.0250, L700.5000 #### [facility] [address] [place], [address] RAPID PLASMIN REAGIN Collected: 01/09/2018 Status: F Source: [place] (RPR) 2:43 AM [facility] REPOSITORY TYPE CODE TESTS RESULT OUT OF REFERENCE UNITS RANGE LAB L700.5000 NONREACTIVE NONREACTIVE Normal RPR Performed By: #### L501.4010, L501.9520, L506.0250, L700.5000 #### [facility] [address] [place], [address] VITAMIN B12 Collected: 01/09/2018 Status: F Source: [place] 2:43 AM [facility] REPOSITORY TYPE CODE TESTS RESULT OUT OF RANGE REFERENCE UNITS LAB L503.0105 211-911 pg/mL Normal Vitamin B12 560 Performed By: #### L503.0105, L509.6000 #### [facility] [address] [place], [address] CORTISOL SERUM Collected: 01/09/2018 Status: F Source: [place] 2:43 AM [facility] REPOSITORY TYPE CODE TESTS RESULT OUT OF REFERENCE UNITS RANGE LAB L509.6000 3.09-22.40 ug/dL Low CORTISOL 2.40 Result Comment: Adult (AM) 4.30 - 22.40 ug/dL Adult (PM) 3.09 - 16.66 ug/dL Performed By: #### L503.0105, L509.6000 #### [facility] [address] [place], [address] BRAIN WITHOUT Observed: 01/09/2018 Status: F Source: [place] CONTRAST 2:13 AM [facility] REPOSITORY [facility] [place] [address] [place] [address] Brain without Contrast MR#: [id number] Acct: [id number] Name: RAND MORALES Rep #: [id number] : 1965 M 52 From: nAselmo Low MD PCP: Ascencion Lerma MD Status: ADM IN Study: Brain without Contrast Date of Exam: 01/09/18 Exam# [id number] Ordering Dr: Stefano Hassan MD STUDY: MRI BRAIN WITHOUT CONTRAST REASON FOR EXAM: Male, 52 years old. Confusion and left- sided facial paresthesias TECHNIQUE: Standardized multiplanar fat and water weighted pulse sequences were obtained. COMPARISON: January 08, 2018 CT examination of the head FINDINGS: No evidence for shift of midline structures, mass effect or compression of ventricles noted. No acute intra or extra-axial hemorrhage is seen. No abnormal intracranial fluid collections identified. The basal cisterns are patent. Posterior fossa structures demonstrate no discrete mass. Encephalomalacia and gliosis in the right frontal lobe consistent with a chronic right frontal lobe infarct. Scattered foci of T2/FLAIR hyperintensity in the periventricular and subcortical white matter noted which are nonspecific in imaging appearance however likely related with chronic small vessel disease. Partial opacification of the right-sided mastoid air cells although nonspecific can be seen in the setting of mastoiditis. Mild mucosal thickening of the ethmoid air cells No discrete mass in the posterior fossa. No evidence for cerebellar tonsillar herniation. Visualized orbital contents appear unremarkable. IMPRESSION: No evidence for acute intracranial hemorrhage, mass effect or acute large territory infarcts. Chronic right frontal lobe infarct with encephalomalacia and gliosis. Mild chronic small vessel disease. Partial opacification of the right-sided mastoid air cells although nonspecific can be seen in the setting of mastoiditis. Mild mucosal thickening of the ethmoid air cells Electronically Signed: Anselmo Low, at 14:36 EDT Tel , Service support , MRI/Brain without Contrast CC: Ascencion Lerma MD; Stefano [place] MD Student Outreach Coordinator: Signed EMERGENCY DEPARTMENT Observed: 01/09/2018 Status: F Source: [place] SUMMARY 1:18 AM [facility] REPOSITORY [facility] Medical Records Department [address] [place] [address] Emergency Department Summary 01/08/18 2222 MR#: [id number] Acct: [id number] Name: RAND MORALES Rep #: [id number] : 1965 52 From: Perico [place] MD PCP: Ascencion Lerma MD Status: REG ER - ER Visit Summary Date of Service: 01/08/18 Chief Complaint: Confusion History of Present Illness: The patient is a 52 M brought by EMS for transient confusion. The patient states he felt fine earlier today and has had no recent illness. He went over to a friend's and had just eaten a cheeseburger and had gone out to the [place]. Bystanders then called EMS stating that he was confused and disoriented did not know where he was and could not answer simple questions. EMS reports that he was confused and unable to tell where he was on their arrival but that he regained normal level of consciousness during transport here to the emergency department. The patient states he last remembers walking up the porch and the next thing he knew he was in the ambulance. No history of prior similar symptoms. He also developed chest pain in the wound here to the hospital. He describes this as sharp located on the left side of the chest and rated a 6 out of 10 nonradiating. He feels a little short of breath and nauseated. He also complains of a headache although he attributes this to the nitroglycerin that was given by EMS. He does report headache usually when given nitroglycerin. He also notes that he had some left lower back pain yesterday but this has resolved and he is uncertain if it is related. He does have a history of prior stroke and coronary artery disease with multiple stents. Physical Examination: Afebrile vitals are stable NIH stroke scale is 1, patient reports decreased sensation to light touch of the left face and left hand. He has normal strength. No facial droop. Clear speech. Patient is alert and oriented 3 No distress resting comfortably Moist mucous membranes Heart regular rate and rhythm Lungs are clear Abdomen soft nontender Extremities nontender Symmetric radial pulses Test Results: EKG shows normal sinus rhythm at a rate of 97 with no acute ischemic changes. Repeat EKG remains unchanged. CBC BMP notable for glucose 365 otherwise normal. INR normal. Troponin negative. Chest x-ray normal. CT of the head shows old frontal infarct mild periventricular white matter changes no acute bleed no acute process. CTA of the chest shows no acute findings no thoracic aortic dissection. Emergency Department Course and Treatment: Patient had received nitroglycerin and aspirin prior to arrival. He reported no relief and development of headache with nitroglycerin. He was given IV morphine here with improvement of symptoms. His laboratory studies are unremarkable. Given her neurological symptoms and chest pain this also raises concern for possible thoracic aortic dissection so CTA of the chest was obtained which is normal. Given the patient's transient confusion and left hand and facial paresthesias with prior stroke I do believe he needs further neurological workup as well likely to include MRI of the brain. Patient will be discussed with hospitalist and admitted. Treatment Plan: [] Disposition: Admit Impression: Transient confusion Chest pain Left hand and facial paresthesias This note was generated with [employer] dictation software. It may contain incorrect words, spelling, and punctuation that were not noted in review of the chart prior to signing ED Disposition - Plan for ED Patient: Chief Complaint: Alt LOC Referrals: Ascencion Lerma MD [Primary Care Provider] - What to do if you have Problems For any increased pain, shortness of breath, bleeding, nausea or vomiting, chest pain, or any unexpected problems, contact your Primary Care Provider. Call [employer] [facility] ([phone]) or report to the closest Emergency Room. Call 911 if necessary. 01/09/18 0118 <Electronically signed by Perico [place] MD> Date Perico [place] MD Cosigner Signature (If Indicated): Date CC: Ascencion Lerma MD CTA CHEST W/WO Observed: 01/08/2018 Status: F Source: [place] CONTRAST 11:05 PM [facility] REPOSITORY [facility] Imaging Services [address] [address] CTA Chest W/WO Contrast MR#: [id number] Acct: [id number] Name: RAND MORALES Rep #: [id number] : 1965 M 52 From: Deuce De León MD PCP: Ascencion Lerma MD Status: REG ER Study: CTA Chest W/WO Contrast Date of Exam: 01/08/18 Exam# [id number] Ordering Dr: Perico [place] MD STUDY: CTA CHEST REASON FOR EXAM: Male, 52 years old. Chest pain, evaluate for dissection RADIATION DOSAGE (If Supplied By Facility): CTDIvol = ( 15.09 ) mGy, DLP = ( 662.33 ) mGycm TECHNIQUE: The examination was performed with the intravenous administration of 100 ml of Isovue 300 contrast material. Post-processing of the angiographic images was performed, with multiplanar reformation and 3D reconstruction. Individualized dose optimization techniques were used for this CT. COMPARISON: 08/07/2017 FINDINGS: Normal enhancement of the main pulmonary artery and right and left pulmonary arteries. Normal enhancement of the bilateral peripheral pulmonary arteries. There is no demonstrated pulmonary embolism. Normal thoracic aorta and visualized great vessels. There is no demonstrated aortic dissection. Normal heart and pericardium. Normal mediastinum. Normal hilar regions. Normal visualized trachea and bronchi. The lungs are well expanded. Normal pulmonary parenchyma. Calcified pleural plaque on the left. Normal chest wall structures. Normal osseous structures. Normal visualized upper abdomen. CT/CTA Chest W/WO Contrast IMPRESSION: No evidence of thoracic aortic dissection. No acute pulmonary findings. Electronically Signed: Deuce De León MD at 0:57 EDT Tel , Service support , CC: Ascencion Lerma MD; Perico [place] MD Student Outreach Coordinator: Signed CHEST 1 VIEW Observed: 01/08/2018 Status: F Source: [place] 10:22 PM [facility] REPOSITORY [facility] Imaging Services [address] [place] [address] Chest 1 View MR#: [id number] Acct: [id number] Name: RAND MORALES Rep #: [id number] : 1965 M 52 From: Deuce De León MD PCP: Ascencion Lerma MD Status: REG ER Study: Chest 1 View Date of Exam: 01/08/18 Exam# [id number] Ordering Dr: Perico [place] MD STUDY: X-RAY CHEST REASON FOR EXAM: Male, 52 years old. Syncope and SOB TECHNIQUE: Single frontal view of the chest. COMPARISON: 11/06/2017 FINDINGS: The lungs are clear and expanded. There is no demonstrated pleural abnormality. Normal size heart. Normal mediastinum and sang. Normal visualized pulmonary arteries. Normal visualized aortic arch and descending thoracic aorta. Normal visualized thoracic spine. Normal visualized ribs, clavicles, and shoulders. There is no demonstrated abnormality of the visualized soft tissue structures of the upper abdomen. RAD/Chest 1 View IMPRESSION: Normal x-ray examination of the chest. Electronically Signed: Deuce De León MD at 23:24 EDT Tel , Service support , CC: Ascencion Lerma MD; Perico [place] MD Student Outreach Coordinator: Signed BRAIN/HEAD WITHOUT Observed: 01/08/2018 Status: F Source: [place] CONTRAST 10:22 PM [facility] REPOSITORY [facility] Imaging Services [address] [place] [address] Brain/Head without Contrast MR#: [id number] Acct: [id number] Name: RAND MORALES Rep #: [id number] : 1965 M 52 From: Willis Hankins MD PCP: Ascencion Lerma MD Status: REG ER Study: Brain/Head without Contrast Date of Exam: 01/08/18 Exam# [id number] Ordering Dr: Perico [place] MD STUDY: CT BRAIN WITHOUT CONTRAST REASON FOR EXAM: Male, 52 years old. Confusion RADIATION DOSAGE (If Supplied By Facility): CTDIvol = ( 44.99 ) mGy, DLP = ( 812.98 ) mGycm TECHNIQUE: Transaxial CT imaging of the brain was performed without administration of intravenous contrast material. Individualized dose optimization techniques were used for this CT. COMPARISON: June 18, 2016 FINDINGS: Normal soft tissue structures. Normal calvarium. Normal size ventricles and extra-axial spaces for the patient's age. Mild periventricular white matter disease. Encephalomalacia in the right frontal lobe which may be due to old infarct. Normal basal ganglia and thalami. Normal brainstem. Normal cerebellum. There is no intracranial hemorrhage. There are no findings of an acute ischemic infarction. Small mucous retention cyst in the left maxillary sinus. No significant change since prior study CT/Brain/Head without Contrast IMPRESSION: Findings which may be consistent with old frontal lobe infarct. Mild periventricular white matter ischemic changes. No evidence for acute bleed. If concern for acute infarct MRI recommended. Electronically Signed: Willis Hankins MD at 23:26 EDT , Service support , CC: Ascencion Lerma MD; Perico [place] MD Student Outreach Coordinator: Signed CBC W/DIFF, AUTOMATED Collected: 01/08/2018 Status: F Source: [place] 10:10 PM [facility] REPOSITORY TYPE CODE TESTS RESULT OUT OF RANGE REFERENCE UNITS LAB L100.1000 4.4-11.0 K/mm3 Normal WBC 6.2 LAB L100.1200 4.6-6.2 M/mm3 Normal RBC 4.96 LAB L100.1300 13.0-16.5 g/dl Normal HGB 15.2 LAB L100.1400 40-54 % Normal HCT 43.3 LAB L100.1500 80-94 fL Normal MCV 87.3 LAB L100.1600 27.0-32.0 pg Normal MCH 30.6 LAB L100.1700 32-36 g/gl Normal MCHC 35.1 LAB L100.1810 11.6-14.6 % Normal RDW CV 13.1 LAB L100.1820 35.1-43.9 fl Normal RDW SD 41.6 LAB L100.1900 150-450 K/mm3 Normal PLT 167 LAB L100.2000 6.2-12.0 fl Normal MPV 11.3 LAB L100.2100 47-70 % Low NEUT% 43.2 LAB L100.2200 19-41 % High LY% 47.5 LAB L100.2300 0-10 % Normal MONO% 6.3 LAB L100.2400 0-5 % Normal EO% 2.4 LAB L100.2500 0-1 % Normal BASO% 0.6 LAB L100.2550 0.0-0.9 % Normal IM GRAN % 0.000 Result Comment: IG% - Immature Granulocytes (promyelocytes, myelocytes and metamyelocytes) > 1% indicates that a LEFT SHIFT is Present. LAB L100.2620 2.0-7.7 X10 3/uL Normal Absolute Neut 2.7 LAB L100.2720 0.83-4.51 X10 3/ul Normal Absolute Lymph 2.93 Performed By: #### L100.0100 #### [facility] [address] [place], [address] BASIC METABOLIC Collected: 01/08/2018 Status: F Source: [place] PROFILE (BMP) 10:10 PM [facility] REPOSITORY TYPE CODE TESTS RESULT OUT OF RANGE REFERENCE UNITS LAB L501.0100 74-106 mg/dL High GLU 365 Result Comment: Glucose result greater than or equal to 200 mg/dL suggests DIABETES MELLITUS per A.D.A. criteria. Please note revised GLUCOSE reference range effective 2017. LAB L501.1000 7-18 mg/dL Normal BUN 11 LAB L501.1100 0.70-1.30 mg/dL Normal CREAT,SERUM 0.88 Result Comment: The validity of the calculated GFR AND GFRAA in patients over 70 years has not been determined. Clinical correlation is essential. LAB L501.1110 >60 mL/min Normal EST GFR 97 Result Comment: Non- GFR Calc LAB L501.1115 >60 mL/min Normal EST GFR - AA 117 Result Comment: GFR Calc LAB L501.1255 ml/min Normal Estimated CRCL 107.78 LAB L501.1300 10-20 RATIO BUN/CRE Normal 12.5 LAB L501.2200 8.5-10 mg/dL .1 CA Normal 9.1 LAB L501.5300 136-14 mmol/L 5 NA Normal 136 LAB L501.5600 3.5-5. mmol/L 1 K Normal 3.6 LAB L501.5900 98-107 mmol/L CL Normal 101 LAB L501.6100 21.0-3 mmol/L 2.0 CO2 Normal 27.0 LAB L501.6200 5-15 GAP Normal 8 Performed By: #### L500.2500, L501.4010 #### [facility] [address] [place], [address] TROPONIN-I Collected: 01/08/2018 Status: F Source: [place] 10:10 PM [facility] REPOSITORY TYPE CODE TESTS RESULT OUT OF RANGE REFERENCE UNITS LAB L501.4010 <0.045 ng/mL Normal < 0.015 TROPONIN-I Result Comment: TROPONIN-I EXPECTED VALUES <0.045 Negative 0.045 - 0.590 Consistent with Cardiac Damage > OR = 0.600 Critical Value Not every elevated troponin is indicative of PA. These values should be used with clinical judgement in examining the patient's clinical picture for diagnosis. To establish a diagnosis of PA versus myocardial injury, there must be a demonstrated rise and/or fall in the troponin values, in addition to ischemic symptoms, EKG changes, new regional wall motion abnormality, and/or angiographical evidence. PLEASE NOTE: REFERENCE RANGES EDITED 18 Performed By: #### L500.2500, L501.4010 #### [facility] [address] [place], [address] PROTHROMBIN TIME W/INR Collected: 01/08/2018 Status: F Source: [place] 10:10 PM [facility] REPOSITORY TYPE CODE TESTS RESULT OUT OF RANGE REFERENCE UNITS LAB L300.4150 11.7-14.9 SECONDS Normal PROTIME 12.9 LAB L300.4200 Normal INR 1.0 Performed By: #### L300.3900, L300.4310 #### [facility] [address] [place], [place], [address] PARTIAL THROMBOPLAST Collected: 01/08/2018 Status: F Source: [place] TIME 10:10 PM [facility] REPOSITORY TYPE CODE TESTS RESULT OUT OF RANGE REFERENCE UNITS LAB L300.4310 24.1-36.2 Seconds Normal PTT 26.3 Performed By: #### L300.3900, L300.4310 #### [facility] [address] [place], [address] URINE DRUG SCREEN Collected: 01/08/2018 Status: F Source: [place] (VISTA) 10:10 PM [facility] REPOSITORY TYPE CODE TESTS RESULT OUT OF RANGE REFERENCE UNITS LAB L505.0075 TO BE Normal CONFIRMED Result Comment: CONFIRMATORY TESTING FOR ALL POSITIVE URINE DRUG SCREEN RESULTS WILL ONLY BE SENT OUT UPON PHYSICIAN ORDER. VISTA Urine Drug Screen methods provide only preliminary analytical test results. A more specific alternate chemical method must be used in order to obtain a confirmed analytical result. Gas chromatography/mass spectrometery (GC/MS) is the preferred confirmatory method. Clinical consideration and professional judgement should be applied to any drug of abuse test result, particularly when preliminary positive results are used. URINE TCA TESTING MUST BE ORDERED SEPARATELY. USE TEST MNEMONIC: [facility] LAB L505.5005 VISTA UDS PH 6 Normal LAB L505.5015 <1000 ng/mL AMPHETAMINES Normal NEGATIVE LAB L505.5025 < 200 ng/mL BARBITIURATES Normal NEGATIVE LAB L505.5035 < 200 ng/mL BENZODIAZIPINE Normal NEGATIVE LAB L505.5045 < 300 ng/mL COCAINE Normal NEGATIVE LAB L505.5055 < 500 ng/mL ECSTACY Normal NEGATIVE LAB L505.5065 < 300 ng/mL METHADONE Normal NEGATIVE LAB L505.5075 < 300 ng/mL OPIATES Normal NEGATIVE LAB L505.5085 < 25 ng/mL PCP Normal NEGATIVE LAB L505.5095 < 50 High ng/mL THC POSITIVE Performed By: #### L505.5000 #### [facility] [address] [place], [address] PROGRESS Observed: 11/12/2017 Status: COMPLETED Source: [place] 3:08 PM [facility] REPOSITORY HNO ID: [id number] Author: Ascencion Lerma Service: (none) Author Type: Physician Type: Progress Notes Filed: 11/12/2017 5:01 PM Note Text: ? ? Provider Action/FYI: ? Pt hospitalized for N/V/D; Ruled out ACS. Has not filled new meds yet. Not checking BSs. Instructed to bring meter. Will have him check in office. ? Initial contact with patient post discharge, spoke to Diogo. Patient identified by name and . ? SUMMARY: -Pt discharged from [facility] on 11/08/17. -Follow up appointment on 11/12/17. -Medication review done with pt.- he has not picked up new Rxs from pharmacy. -Admitted for: CP, ACS R/O'd, uncontrolled DM, CAD, Hx PA ? CONCERNS: Pt not checking BSs ? NEW MEDICATIONS: Metoprolol, Norvasc- has not filled Rxs yet. ? MEDS HELD/DISCONTINUED: None ? BRIEF HOSPITAL COURSE: 52 yo M presented to [facility] 11/06 w/N/V/D/CP. PMH CAD w/PCI, uncontrolled DM, HTN,HLD. ACS was ruled out in ER CXR unremarkable. Cadiac cath done on 11/08 w/EF 45% showing severe disease prox and small vessel, septal moderate luminal irregularities to 50% circ 50% mid circ previously stented patent. Pt N/V dissipated during admission-liking gastroenteritis. Cr on admit was 1.4 improved with IV hydration. A1c 12.5- pt will require intensive diabetic management as he has been non-compliant with regimen. Continues to smoke cigarettes and marijuana. Added Amlodipine for HTN Transitional Care Management Progress Note The patients TCM visit was performed within the 7 days of discharge. Patient's Date of discharge: 10/28/17 Date of initial coordinator contact after discharge: 11/09/17 Discharge diagnosis: Gastritis Medication review completed Yes Rosalba Burleson director of academic [employer] [facility] [place] [facility] Provider Documentation: In follow-up of hospitalization, Rand Morales is a 52 year old male with the chief complaint of hospital admission. I have reviewed the patient?s last hospital course including diagnostic testing performed during this hospitalization, their discharge medications, and my assessment and plan with the patient and any family members present at today?s visit. HPI: Patient has not been taking his medications, he had 2 glucometers that he has not used in a while. He lost his brother a couple weeks ago, and he has not been doing well since. He is erractic with his food patterns. He takes care of his mother. Thinks he is eating less, but his weight is going up Has is 12.4, he takes morning pills and forgets his evening pills PAST MEDICAL HISTORY: Reviewed and updated ALLERGIES: Reviewed and updated MEDICATIONS: Reviewed and updated SOCIAL HISTORY: Reviewed and updated FAMILY HISTORY: Reviewed and updated REVIEW OF SYSTEMS: All other systems reviewed and negative, other than HPI. PHYSICAL EXAMINATION BP 124/70 Pulse 95 Wt 238 lb (108.0kg) SpO2 98% General appearance: well appearing, alert, in no acute distress, well-hydrated, well nourished, motor and sensory appear to be normal Lungs: clear to auscultation, no wheezing or rhonchi Heart: RRR without murmur, gallop, or rubs. No ectopy Abdomen: Normal abdominal exam, Abdomen soft, non-tender. Bowel sounds normal. No masses, organomegaly Extremities: Extremities normal. No deformities, edema, or skin discoloration. Good capillary refill. 1. I have reviewed the patient record including associated test results during the last hospitalization Yes 2. I have reviewed Lab test Yes 3. I have reviewed Radiology test Yes 4. I reviewed assessment/plan with the patient/family member Yes ASSESSMENT/PLAN: 1. Hospital discharge follow-up - ICD9: V67.59, ICD10: Z09 (primary diagnosis) Patient involved in shared decision making for management of her medical issues. History and medications reviewed. [facility] updated as needed Refills taken care of and meds adjusted as indicated after reviewed history, exam and labs. Health Maintenance reviewed. Updated record and/or ordered tests as recorded. Reviewed and updated his medication Discussed importance of compliance as he is highly non compliant. 2. Uncontrolled type 2 diabetes mellitus with diabetic neuropathy, without long-term current use of insulin (HCC) - ICD9: 250.62, 357.2, ICD10: E11.40, E11.65 affiliate marketing coordinator worked with him to discuss his diet. Adding lantus and increasing metformin - METFORMIN 500 MG TABLET - METFORMIN 500 MG TABLET - CONSULT TO PHARMACY 3. Essential hypertension - ICD9: 401.9, ICD10: I10 - good control stopped the metoprolol and norvasc as he is on coreg and his bp is doing great - Recommended regular aerobic exercise. - Recommend home blood pressure monitoring, to bring results in on next visit - Goal of BP <130/80 4. 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 ? Provider Action/FYI: ? Pt hospitalized for N/V/D; Ruled out ACS. Has not filled new meds yet. Not checking BSs. Instructed to bring meter. Will have him check in office. ? Initial contact with patient post discharge, spoke to Diogo. Patient identified by name and . ? SUMMARY: -Pt discharged from [facility] on 11/08/17. -Follow up appointment on 11/12/17. -Medication review done with pt.- he has not picked up new Rxs from pharmacy. -Admitted for: CP, ACS R/O'd, uncontrolled DM, CAD, Hx PA ? CONCERNS: Pt not checking BSs ? NEW MEDICATIONS: Metoprolol, Norvasc- has not filled Rxs yet. ? MEDS HELD/DISCONTINUED: None ? BRIEF HOSPITAL COURSE: 52 yo M presented to [facility] 11/06 w/N/V/D/CP. PMH CAD w/PCI, uncontrolled DM, HTN,HLD. ACS was ruled out in ER CXR unremarkable. Cadiac cath done on 11/08 w/EF 45% showing severe disease prox and small vessel, septal moderate luminal irregularities to 50% circ 50% mid circ previously stented patent. Pt N/V dissipated during admission-liking gastroenteritis. Cr on admit was 1.4 improved with IV hydration. A1c 12.5- pt will require intensive diabetic management as he has been non-compliant with regimen. Continues to smoke cigarettes and marijuana. Added Amlodipine for HTN Transitional Care Management Progress Note The patients TCM visit was performed within the 7 days of discharge. Patient's Date of discharge: 10/28/17 Date of initial coordinator contact after discharge: 11/09/17 Discharge diagnosis: Gastritis Medication review completed Yes Rosalba Burleson RN Amb[facility] Provider Documentation: In follow-up of hospitalization, Rand Morales is a 52 year old male with the chief complaint of hospital admission. I have reviewed the patient?s last hospital course including diagnostic testing performed during this hospitalization, their discharge medications, and my assessment and plan with the patient and any family members present at today?s visit. HPI: Patient has not been taking his medications, he had 2 glucometers that he has not used in a while. He lost his brother a couple weeks ago, and he has not been doing well since. He is erractic with his food patterns. He takes care of his mother. Thinks he is eating less, but his weight is going up Has is 12.4, he takes morning pills and forgets his evening pills PAST MEDICAL HISTORY: Reviewed and updated ALLERGIES: Reviewed and updated MEDICATIONS: Reviewed and updated SOCIAL HISTORY: Reviewed and updated FAMILY HISTORY: Reviewed and updated REVIEW OF SYSTEMS: All other systems reviewed and negative, other than HPI. PHYSICAL EXAMINATION BP 124/70 Pulse 95 Wt 238 lb (108.0kg) SpO2 98% General appearance: well appearing, alert, in no acute distress, well-hydrated, well nourished, ANDquot;motor and sensory appear to be normal Lungs: clear to auscultation, no wheezing or rhonchi Heart: RRR without murmur, gallop, or rubs. No ectopy Abdomen: Normal abdominal exam, Abdomen soft, non-tender. Bowel sounds normal. No masses, organomegaly Extremities: Extremities normal. No deformities, edema, or skin discoloration. Good capillary refill. 1. I have reviewed the patient record including associated test results during the last hospitalization Yes 2. I have reviewed Lab test Yes 3. I have reviewed Radiology test Yes 4. I reviewed assessment/plan with the patient/family member Yes ASSESSMENT/PLAN: 1. Hospital discharge follow-up - ICD9: V67.59, ICD10: Z09 (primary diagnosis) Patient involved in shared decision making for management of her medical issues. History and medications reviewed. Epic updated as needed Refills taken care of and meds adjusted as indicated after reviewed history, exam and labs. Health Maintenance reviewed. Updated record and/or ordered tests as recorded. Reviewed and updated his medication Discussed importance of compliance as he is highly non compliant. 2. Uncontrolled type 2 diabetes mellitus with diabetic neuropathy, without long-term current use of insulin (HCC) - ICD9: 250.62, 357.2, ICD10: E11.40, E11.65 affiliate marketing coordinator worked with him to discuss his diet. Adding lantus and increasing metformin - METFORMIN 500 MG TABLET - METFORMIN 500 MG TABLET - CONSULT TO PHARMACY 3. Essential hypertension - ICD9: 401.9, ICD10: I10 - good control stopped the metoprolol and norvasc as he is on coreg and his bp is doing great - Recommended regular aerobic exercise. - Recommend home blood pressure monitoring, to bring results in on next visit - Goal of BP ANDlt;130/80 4. 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, unspecified vessel or lesion type (HCC) - ICD9: 414.01, 413.9, ICD10: I25.119 Stable ASCENCION LERMA MD Referring Provider: ASCENCION LERMA [[id number]] Allergies As of Date: 11/12/2017 (No Known Allergies) Date Reviewed: 11/12/2017 Reviewed by: Ewa Peterson Ma - Fully Assessed Reason for Visit: Hospital F/U [57] Cmt: was in for chest pain Reason For Visit History Recorded Primary Visit Diagnosis:Hospital discharge follow-up [Z09] Other Visit Diagnoses:Uncontrolled type 2 diabetes mellitus with diabetic neuropathy, without long-term current use of insulin (HCC) [E11.40, E11.65] Essential hypertension [I10] 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, unspecified vessel or lesion type ([facility]) [I25.119] Order(s):metFORMIN (GLUCOPHAGE) 500 mg tabletTo take 1000 mg in the morning and 500 in the eveningDisp: 90 tabletRfl: 5 insulin glargine (LANTUS SOLOSTAR U-100 INSULIN) 100 unit/mL (3 mL) inpnInject 10 Units subcutaneously daily at bedtime.Disp: 5 PenRfl: 3 CONSULT TO PHARMACY [19991029] Order #: [id number]: 1 Prescriptions as of 11/12/2017 Sig: METFORMIN 500 MG TABLET To take 1000 mg in the mornin* RANITIDINE 150 MG TABLET Take 1 tablet by mouth daily * ESCITALOPRAM 20 MG TABLET Take 1 tablet by mouth once d* BUSPIRONE 5 MG TABLET Take 1 tablet by mouth three * BLOOD-GLUCOSE METER KIT Glucose Meter of Choice - Kit* ASPIRIN 81 MG TABLET,DELAYED * Take 1 tablet by mouth once d* ATORVASTATIN 80 MG TABLET Take 1 tablet by mouth once d* BUPROPION XL 300 MG 24 HR TAB Take 1 tablet by mouth once d* CARVEDILOL 6.25 MG TABLET Take 1 tablet by mouth twice * CLOPIDOGREL 75 MG TABLET Take 1 tablet by mouth once d* PANTOPRAZOLE 40 MG TABLET,DEL* Take 1 tablet by mouth once d* INSULIN GLARGINE (U-100) 100 * Inject 10 Units subcutaneousl* LISINOPRIL 10 MG TABLET Take 1 tablet by mouth once d* NICOTINE 21 MG/24 HR DAILY TR* Apply 1 Patch as directed angel* Medication notes this encounter AMLODIPINE 10 MG TABLET >> Ewa Peterson Ma 11/12/2017 3:00 PM >> EWA PETERSON MA Nov 12, 2017 3:00 PM Received from: [facility] METOPROLOL SUCCINATE ER 50 MG TABLET,EXTENDED RELEASE 24 HR >> Ewa Peterson Ma 11/12/2017 3:00 PM >> EWA PETERSON MA WedNov 12, 2017 3:00 PM Received from: [facility] NICOTINE 21 MG/24 HR DAILY TRANSDERMAL PATCH >> Ewa Peterson Ma 11/12/2017 2:58 PM >> EWA PETERSON MA WedNov 12, 2017 2:58 PM Not taking Problem List As Of Date 11/12/2017 Noted Resolved Type 1 diabetes mellitus with diabetic neuropat*INVALID FOR*05/19/2017 Hyperlipidemia [E78.5] INVALID FOR* More... HTN (hypertension) [I10] INVALID FOR* More... Back pain [M54.9] INVALID FOR* DDD (degenerative disc disease) [[id number]] INVALID FOR* Right shoulder pain [M25.511] INVALID FOR* Coronary artery disease involving ekuk heart *INVALID FOR* More... Uncontrolled type 2 diabetes mellitus with diab*INVALID FOR* More... Prescriptions ordered this encounter Disp Refills Start End METFORMIN 500 MG TABLET 60 t* 11 11/12/2017 11/12/2017 Class: Med Update Route: ORAL Sig: Take 2 tablets by mouth twice daily with meals. METFORMIN 500 MG TABLET 90 t* 5 11/12/2017 Sig: To take 1000 mg in the morning and 500 in the evening INSULIN GLARGINE (U-100) 100 UNIT/ML* 5 Pen 3 11/12/2017 Route: SUBCUTANEOUS Sig: Inject 10 Units subcutaneously daily at bedtime. Medications Discontinued During This Encounter amLODIPine (NORVASC) 10 mg tablet 11/08/2017 11/12/2017 Class: Historical Med Sig: DAILY Disc: Reason for discontinue is not on file. metoprolol succinate ER (TOPROL XL) * 11/08/2017 11/12/2017 Class: Historical Med Sig: DAILY Disc: Reason for discontinue is not on file. metFORMIN (GLUCOPHAGE) 500 mg tablet 60 t* 11 08/27/2017 11/12/2017 Route: ORAL Sig: Take 1 tablet by mouth twice daily with meals. Disc: Reason for discontinue is not on file. metFORMIN (GLUCOPHAGE) 500 mg tablet 60 t* 11 11/12/2017 11/12/2017 Class: Med Update Route: ORAL Sig: Take 2 tablets by mouth twice daily with meals. Disc: Reason for discontinue is not on file. Encounter Status:Closed by ASCENCION LERMA MD on 11/12/17 12 LEAD ELECTROCARDIOGRAM Observed: 11/11/2017 Status: F Source: [place] 3:09 PM [facility] REPOSITORY [facility] Cardiovascular Services [address] [place] [address] 12 Lead EKG 11/08/17 0528 MR#: [id number] Acct: [id number] Name: RAND MORALES Rep #: [id number] : 1965 52 From: Tye Lawson MD Attending Dr: Grant Larson DO Status: DIS ACE Ordering Dr: Bertha Reynoso Date: 11/08/17 Location: [facility] Sex: M C Admitted: 11/06/17 Test Reason : AM EKG Blood Pressure : / mmHG Vent. Rate : 085 BPM Atrial Rate : 085 BPM P-R Int : 158 ms QRS Dur : 088 ms QT Int : 372 ms P-R-T Axes : 033 103 079 degrees QTc Int : 442 ms Normal sinus rhythm Normal ECG When compared with ECG of 07-NOV-2017 06:03, MANUAL COMPARISON REQUIRED, DATA IS UNCONFIRMED Confirmed by TYE LAWSON ([id number]), scientific publications editor WILLEM IGNACIO ([id number]) on 11/11/2017 3:08:35 PM Referred By: DR BARLOW Confirmed By:TYE LAWSON 11/11/17 1508 Date Tye Lawson MD CC: Bertha Reynoso; Ascencion Lerma MD Signed 12 LEAD ELECTROCARDIOGRAM Observed: 11/11/2017 Status: F Source: [place] 3:07 PM [facility] REPOSITORY [facility] Cardiovascular Services [address] [place] [address] 12 Lead EKG 11/07/17 0603 MR#: [id number] Acct: [id number] Name: RAND MORALES Rep #: [id number] : 1965 52 From: Tye Lawson MD Attending Dr: Grant Larson DO Status: DIS ACE Ordering Dr: Bertha Reynoso Date: 11/07/17 Location: [facility] Sex: M C Admitted: 11/06/17 Test Reason : AM EKG Blood Pressure : / mmHG Vent. Rate : 078 BPM Atrial Rate : 078 BPM P-R Int : 174 ms QRS Dur : 096 ms QT Int : 406 ms P-R-T Axes : 049 096 086 degrees QTc Int : 462 ms Normal sinus rhythm Low voltage QRS Borderline ECG When compared with ECG of 06-NOV-2017 23:47, MANUAL COMPARISON REQUIRED, DATA IS UNCONFIRMED Confirmed by TYE LAWSON ([id number]), scientific publications editor WILLEM IGNACIO ([id number]) on 11/11/2017 3:07:04 PM Referred By: MICHI Confirmed By:TYE LAWSON 11/11/17 1507 Date Tye Lawson MD CC: Bertha Reynoso; Ascencion Lerma MD Signed 12 LEAD ELECTROCARDIOGRAM Observed: 11/11/2017 Status: F Source: [place] 3:04 PM [facility] REPOSITORY [facility] Cardiovascular Services [address] [place] [address] 12 Lead EKG 11/06/17 2347 MR#: [id number] Acct: [id number] Name: RAND MORALES Rep #: [id number] : 1965 52 From: yTe Lawson MD Attending Dr: Grant Larson DO Status: DIS ACE Ordering Dr: Francoise Javier MD Date: 11/06/17 Location: [facility] Sex: M C Admitted: 11/06/17 Test Reason : CP Blood Pressure : / mmHG Vent. Rate : 083 BPM Atrial Rate : 083 BPM P-R Int : 168 ms QRS Dur : 092 ms QT Int : 388 ms P-R-T Axes : 054 115 090 degrees QTc Int : 455 ms Normal sinus rhythm Normal ECG When compared with ECG of 09-AUG-2017 05:41, No significant change was found Confirmed by TYE LAWSON ([id number]), scientific publications editor WILLEM IGNACIO ([id number]) on 11/11/2017 3:03:57 PM Referred By: MICHI Confirmed By:TYE LAWSON 11/11/17 1503 Date Tye Lawson MD CC: Francoise Javier MD; Ascencion Lerma MD Signed PROGRESS Observed: 11/10/2017 Status: COMPLETED Source: [place] 4:54 PM [facility] [place] REPOSITORY HNO ID: [id number] Author: Rosalba Katz [facility] Service: (none) Author Type: Registered Nurse Type: Progress Notes Filed: 04/29/2018 11:26 AM Note Text: TRANSITION CARE MANAGEMENT (TCM) INITIAL CONTACT Provider Action/FYI: Pt hospitalized for N/V/D; Ruled out ACS. Has not filled new meds yet. Not checking BSs. Instructed to bring meter. Will have him check in office. Initial contact with patient post discharge, spoke to Diogo. Patient identified by name and . SUMMARY: -Pt discharged from [facility] on 11/08/17. -Follow up appointment on 11/12/17. -Medication review done with pt.- he has not picked up new Rxs from pharmacy. -Admitted for: CP, ACS R/O'd, uncontrolled DM, CAD, Hx PA CONCERNS: Uncontrolled DM NEW MEDICATIONS: Metoprolol, Norvasc- has not filled Rxs yet. MEDS HELD/DISCONTINUED: None BRIEF HOSPITAL COURSE: 52 yo M presented to [facility] 11/06 w/N/V/D/CP. PMH CAD w/PCI, uncontrolled DM, HTN,HLD. ACS was ruled out in ER CXR unremarkable. Cadiac cath done on 11/08 w/EF 45% showing severe disease prox and small vessel, septal moderate luminal irregularities to 50% circ 50% mid circ previously stented patent. Pt N/V dissipated during admission-liking gastroenteritis. Cr on admit was 1.4 improved with IV hydration. A1c 12.5- pt will require intensive diabetic management as he has been non-compliant with regimen. Continues to smoke cigarettes and marijuana. Added Amlodipine for HTN. CNPTOUTREACH Observed: 11/10/2017 Status: COMPLETED Source: [place] 12:00 AM [facility] REPOSITORY Patient Outreach (INTMWS) RAND MORALES ([id number]) 1965 M Date Time Provider Department 11/10/17 ROSALBA SO During your visit today, we recorded the following information about you: Rosalba Katz RN 04/29/2018 11:26 AM Signed TRANSITION CARE MANAGEMENT (TCM) INITIAL CONTACT Provider Action/FYI: Pt hospitalized for N/V/D; Ruled out ACS. Has not filled new meds yet. Not checking BSs. Instructed to bring meter. Will have him check in office. Initial contact with patient post discharge, spoke to Diogo. Patient identified by name and . SUMMARY: -Pt discharged from [facility] on 11/08/17. -Follow up appointment on 11/12/17. -Medication review done with pt.- he has not picked up new Rxs from pharmacy. -Admitted for: CP, ACS R/O'd, uncontrolled DM, CAD, Hx PA CONCERNS: Uncontrolled DM NEW MEDICATIONS: Metoprolol, Norvasc- has not filled Rxs yet. MEDS HELD/DISCONTINUED: None BRIEF HOSPITAL COURSE: 52 yo M presented to [facility] 11/06 w/N/V/D/CP. PMH CAD w/PCI, uncontrolled DM, HTN,HLD. ACS was ruled out in ER CXR unremarkable. Cadiac cath done on 11/08 w/EF 45% showing severe disease prox and small vessel, septal moderate luminal irregularities to 50% circ 50% mid circ previously stented patent. Pt N/V dissipated during admission-liking gastroenteritis. Cr on admit was 1.4 improved with IV hydration. A1c 12.5- pt will require intensive diabetic management as he has been non-compliant with regimen. Continues to smoke cigarettes and marijuana. Added Amlodipine for HTN. Allergies As of Date: 11/10/2017 (No Known Allergies) Date Reviewed: 08/27/2017 Reviewed by: Chelle Herrera LPN - Fully Assessed Reason for Visit: [facility] Follow Up [3610] Prescriptions as of 11/10/2017 Sig: RANITIDINE 150 MG TABLET Take 1 tablet by mouth daily * X ESCITALOPRAM 20 MG TABLET Take 1 tablet by mouth once d* X BUSPIRONE 5 MG TABLET Take 1 tablet by mouth three * BLOOD-GLUCOSE METER KIT Glucose Meter of Choice - Kit* X METFORMIN 500 MG TABLET Take 1 tablet by mouth twice * ASPIRIN 81 MG TABLET,DELAYED * Take 1 tablet by mouth once d* ATORVASTATIN 80 MG TABLET Take 1 tablet by mouth once d* BUPROPION XL 300 MG 24 HR TAB Take 1 tablet by mouth once d* CARVEDILOL 6.25 MG TABLET Take 1 tablet by mouth twice * CLOPIDOGREL 75 MG TABLET Take 1 tablet by mouth once d* LISINOPRIL 10 MG TABLET Take 1 tablet by mouth once d* PANTOPRAZOLE 40 MG TABLET,DEL* Take 1 tablet by mouth once d* X NICOTINE 21 MG/24 HR DAILY TR* Apply 1 Patch as directed angel* Problem List As Of Date 11/10/2017 Noted Resolved Type 1 diabetes mellitus with diabetic neuropat*INVALID FOR*05/19/2017 Hyperlipidemia [E78.5] INVALID FOR* More... HTN (hypertension) [I10] INVALID FOR* More... Back pain [M54.9] INVALID FOR* DDD (degenerative disc disease) [[id number]] INVALID FOR* Right shoulder pain [M25.511] INVALID FOR* Coronary artery disease involving ekuk heart *INVALID FOR* More... Uncontrolled type 2 diabetes mellitus with diab*INVALID FOR* More... Encounter Status:Closed by ROSALBA BURLESON on 04/29/18 12 LEAD ELECTROCARDIOGRAM Observed: 11/09/2017 Status: F Source: [place] 3:09 PM [facility] REPOSITORY [facility] Cardiovascular Services [address] [place] [address] 12 Lead EKG 11/06/172033 MR#: [id number] Acct: [id number] Name: RAND MORALES Rep #: [id number] : 1965 52 From: Yony Sigala MD Attending Dr: Grant Larson DO Status: DIS ACE Ordering Dr: Bertha Reynoso Date: 11/07/17 Location: [facility] Sex: M C Admitted: 11/06/17 Test Reason : Blood Pressure : / mmHG Vent. Rate : 105 BPM Atrial Rate : 105 BPM P-R Int : 154 ms QRS Dur : 086 ms QT Int : 360 ms P-R-T Axes : 067 116 081 degrees QTc Int : 475 ms Sinus tachycardia Otherwise normal ECG Confirmed by YONY SIGALA MD ([id number]), scientific publications editor WILLEM IGNACIO ([id number]) on 11/09/2017 3:09:25 PM Referred By: MITCHELL Confirmed By:YONY SIGALA MD 11/09/17 1509 Date Yony Sigala MD CC: Bertha Reynoso; Ascencion Lerma MD Signed CONSULTATION Observed: 11/09/2017 Status: F Source: [place] 12:04 PM [facility] REPOSITORY [facility] Medical Records Department [address] [place] [address] Consultation 11/08/17 0726 MR#: [id number] Acct: [id number] Name: RAND MORALES Rep #: [id number] : 1965 52 From: Yony Sigala MD PCP: Ascencion Lerma MD Status: DIS ACE Y Location: [place] [address] Reason for Consult Date of Consultation: 11/08/17 Reason for Consultation: Chest pain and need for stress testing History of Present Illness: The patient is a 52 year old M with a previous history of coronary artery disease hyperlipidemia hypertension diabetes mellitus medication noncompliance and tobacco abuse. He presented to the emergency room complaining of nausea and emesis diarrhea shortness of breath and chest discomfort. This is his second admission in 2 months. He was admitted to the telemetry care unit has been doing better this morning denies any chest pain and was scheduled to have a stress test. Cardiology was asked to evaluate because of his repeat stress testing. He underwent stress testing in August 2016, October 2016, July 2017 all of which did not demonstrate any obstructive coronary disease. He had undergone in September 2016 and left heart catheterization which demonstrated an ejection fraction of 45%, left main coronary artery which was normal, LAD with 60% stenosis, second diagonal branch was small with 80% stenosis, the circumflex artery was a large nondominant with first obtuse marginal branch with 60% stenosis, and the second OM with an in-stent stenotic lesion of 95% stenosis. The right coronary artery was dominant with a proximal and distal stent reportedly widely open. There was a mid 60% stenosis. He underwent cutting balloon angioplasty of the circumflex artery OM 2 in-stent stenosis. He has had spotty follow-up with his automobile detailer Dr. Herbert Greco. At this time he denies any neck arm or jaw discomfort suggest angina. [] Past Medical History Allergies/Adverse Reactions: Allergies No Known Allergies Allergy (Verified 11/06/17 20:28) Home Medications: Ambulatory Orders Medication Instructions Recorded Aspirin [Aspirin, Baby] 81 mg PO DAILY 06/11/16 Atorvastatin Calcium [Lipitor] 80 mg PO QHS 06/11/16 Past Medical History (Chronic Problems): Chronic Problems Obesity (BMI 30.0-34.9) (Chronic) Myocardial infarct, old (Chronic) S/P PTCA (percutaneous transluminal coronary angioplasty) (Chronic) S/P PTCA (percutaneous transluminal coronary angioplasty) (Chronic) CAD (coronary artery disease) (Chronic) Tobacco abuse (Chronic) CAD (coronary artery disease) (Chronic) Diabetes (Chronic) HLD (hyperlipidemia) (Chronic) HTN (hypertension) (Chronic) Surgical History: angioplasty, - - LUE surgery, PCI, T+A. Psychiatric History: No pertinent psych hx - *Family History Sibling History Items: Heart Disease - Brother w/ CAD/PA in his 50s, fatal. Maternal History Items: Diabetes, - Paternal History Items: Diabetes, High Cholesterol, Heart Disease - CAD s/p PA in his 50s., Hypertension, - - diabetes, heart disease Lives: Alone Smoking Status: Former smoker Tobacco Use: Non-smoker Alcohol: None Drugs: None Review of Systems - Review of Systems General: Reports: Fatigue. Denies: Fever, Night Sweats Cardiovascular: Reports: Chest Discomfort. Denies: Shortness of Breath, Orthopnea, PND, Peripheral Edema, Palpitations, Lightheadedness, Dizziness, Near Syncope, Syncope Respiratory: Denies: Cough, Sputum Production, Hemoptysis Gastrointestinal: Reports: Nausea, Emesis, Diarrhea. Denies: Hematemesis, Hematochezia, Melena Genitourinary: Denies: Dysuria, Hematuria Skin: Denies: Rash Subjectve: Patient seen and evaluated. Objective: Vital Signs Temp Pulse Resp BP Pulse Ox 98.2 F 86 16 145/65 H 97 11/08/17 02:42 11/08/17 03:00 11/08/17 02:42 11/08/17 02:42 11/08/17 02:42 Oxygen Flow Rate (L/min) 2 Oxygen Delivery Method Room Air Weight: 229 lb 15.074 oz Body Mass Index (BMI) 31.1 Intake and Output for Last 24 Hours Intake Total 5194 / 5194 1892 / 1892 Balance 5194 / 5194 1892 / 1892 General: Awake, Alert, Oriented x 3 HEENT: PERRL, EOMI, Sclera Non Icteric Neck: Supple, Good ROM, No Lymph Node Enlargement Lungs: Clear to auscultation Cardiovascular: Regular Rhythm, Normal S1, Normal S2, No Murmurs, No Rubs, No Gallops Vascular: No Carotid Bruits, Normal Femoral Pulses, Normal Radial Pulses, Normal Dorsalis Pedal Pulse, Normal Posterior Tibial Pulses Abdomen: Bowel Sounds Present, Soft, Non Tender, No HSM, No Organomegaly Extremities: No Cyanosis, No Clubbing, No edema Neurological: No Focal Motor or Sensory Deficit 11/07/17 10:47: Troponin I < 0.02 11/08/17 05:05: Sodium 138, Potassium 3.7, Chloride 104, Carbon Dioxide 25.0, Anion Gap 9, BUN 7, Creatinine 0.60 L, Est GFR (MDRD) Af Amer 181, Est GFR (MDRD) Non-Af 150, BUN/Creatinine Ratio 11.6, Glucose 225 H, Calcium 8.1 L 11/08/17 05:05: WBC 4.8, RBC 4.84, Hgb 15.1, Hct 41.8, MCV 86.4, MCH 31.2, MCHC 36.1 H, RDW 13.1, RDW Differential 40.5, Plt Count 130 L, MPV 11.3 11/08/17 05:05: PT 12.6, INR 0.9, APTT 26.1 Rhythm: EKG: Normal sinus rhythm with no acute changes. Assessment/Plan 1. Chest pain. This gentleman presents with recurrent chest pain and has undergone repeated stress testing which have not demonstrated any evidence of ischemia. My recommendation at this time with his chest pain is that as it appears to be atypical I do not think that a fourth stress test in a year is warranted. I will therefore suggest that he either be treated with medical therapy or undergo a repeat cardiac catheterization. If no significant obstructive lesion is found or a lesion that can be intervened on then he can be discharged and follow-up as an outpatient. Addendum The catheterization today demonstrated the following: Left main coronary artery noted to be normal. Left anterior descending artery with mild luminal irregularities. First septal admin dir with moderate disease in the small vessel. First bifurcating diagonal vessel which is small with moderately severe disease Codominant left circumflex artery with mid segment 50% stenosis. First obtuse marginal branch with no high-grade stenosis. Previously placed stent in the mid circumflex artery with no significant stenosis. Codominant right coronary artery with previously placed stent with mild in-stent stenosis Reduced ejection fraction of 45%. Based on the above angiographic findings the patient will be managed with medical therapy. We will attempt to put him on once a day medication to improve compliance. He can be discharged later today. 2. Hypertension He will continue with aggressive antihypertensive therapy with his medications adjusted as appropriate. 3.Hyperlipidemia He will continue with aggressive risk factor modification. It appears from previous notes that he has been less than appropriately compliant with his medical therapy. This needs to be emphasized to him about the importance of following up with a medical establishment appropriately. 11/09/17 1204 <Electronically signed by Yony Sigala MD> Date Yony Sigala MD Cosigner Signature (if applicable): Date CC: Ascencion Lerma MD Signed DISCHARGE SUMMARY Observed: 11/08/2017 Status: F Source: [place] 5:12 PM [facility] RE[facility]IT[facility] Medical Records Department [address] [place] [address] Discharge Summary 11/08/17 1157 MR#: [id number] Acct: [id number] Name: RAND MORALES Rep #: [id number] : 1965 52 From: Essence Salvador BREAD PAN GREASERLuis FernandoC PCP: Ascencion Lerma MD Status: DIS ACE Y Location: [place] [address] Discharge Date and Diagnosis Date of Admission: 11/06/17 Date of Discharge: 11/08/17 - Primary Discharge Diagnosis 1. Atypical chest pain-ACS ruled out. 2. Suspected viral gastroenteritis 3. Acute kidney injury secondary to #2 4. Poorly controlled type 2 diabetes mellitus 5. Hyperlipidemia, elevated triglycerides-suspect noncompliance with medication regimen 6. CAD with history of PA/PCI 7. Hypertension 8. Tobacco dependence/marijuana use 9. Obesity 10. GERD - Secondary Discharge Diagnosis Chronic Problems Obesity (BMI 30.0-34.9) (Chronic) Myocardial infarct, old (Chronic) S/P PTCA (percutaneous transluminal coronary angioplasty) (Chronic) S/P PTCA (percutaneous transluminal coronary angioplasty) (Chronic) CAD (coronary artery disease) (Chronic) Tobacco abuse (Chronic) CAD (coronary artery disease) (Chronic) Diabetes (Chronic) HLD (hyperlipidemia) (Chronic) HTN (hypertension) (Chronic) Hospital Course and Treatment Imaging Results: Diagnostic Data Chest X-Ray 11/06/17 20:33 IMPRESSION: No radiographic evidence of acute cardiopulmonary disease. Electronically Signed: Jessica Ignacio MD at 21:04 EDT , Service support , Dr. Sigala-Cardiology Operations: None Procedures: Cardiac catheterization Summary of Care Provided: Patient is a 52-year-old male admitted 11/06/2017 due to nausea, vomiting, diarrhea, chest pain. He has a past medical history of CAD status post PA with PCI, tobacco dependence, poorly controlled type 2 diabetes mellitus, obesity, hypertension, hyperlipidemia. 1. Atypical chest pain-ACS ruled out. Patient denies further chest pain. Chest x-ray unremarkable. Troponin negative. EKG without evidence of ischemia. Continue aspirin, Plavix, statin, beta-carisa. Patient underwent cardiac catheterization 11/08/2017 which demonstrated LVEF 45%, mild luminal irregularities left anterior descending artery, diagonal 1 with proximal severe disease and a very small vessel, septal moderate luminal irregularities to 50%, circumflex artery 50%, mid circumflex previously placed stent is patent, OM 2 proximal mild luminal irregularities, right coronary artery proximal RCA previously placed stent is patent. Patient will continue outpatient follow-up with Dr. Sigala. 2. Suspected viral gastroenteritis-resolved. Patient denies further nausea, vomiting, diarrhea. Respiratory panel negative. Patient has not had further bowel movement for stool sample. Patient received IV fluids. 3. Acute kidney injury-secondary to #2. Creatinine on admission 1.4. Improved to 0.60 with IV fluids. 4. Poorly controlled type 2 diabetes mellitus-hemoglobin A1c 12.5%. Continue home metformin regimen at discharge. Patient will need further follow-up with primary care physician for additional diabetes medication and management. Patient has history of noncompliance with regimen. 5. CAD status post PA with PCI-continue aspirin, Plavix, statin, beta-carisa. Cardiac catheterization as noted above. 6. Hyperlipidemia-continue statin. Triglycerides 901, cholesterol 211, HDL 25. Patient is on high-dose statin, atorvastatin 80 mg daily. Patient may need additional agent, can discuss with PCP. 7. Tobacco dependence/marijuana use-encourage cessation. 8. Hypertension-amlodipine added to home regimen. 9. Obesity-encourage dietary and lifestyle modifications. 10. GERD- continue famotidine. General: Alert, Oriented x3, Cooperative, No apparent distress HEENT: Atraumatic, PERRLA, EOMI, Normocephalic Neck: Supple, No JVD, Negative Carotid Bruits Lungs: Clear to auscultation, Diminished Cardiovascular: Regular rate, Regular Rhythm, Normal S1, Normal S2, No murmurs Abdomen: Bowel Sounds Present, Soft, Non Tender, Non-Distended Extremities: No clubbing, No cyanosis, No edema, Capillary Refill Less than 3 Seconds Skin: No rashes, No breakdown Musculoskeletal: No Tenderness to Palpation of Joints or Extremities Neurological: Cranial nerves II-XII grossly intact, Neuro grossly intact Psych/Mental Status: Normal Affect, Appropriate Patient seen and examined prior to discharge. Physical assessment as noted above. Patient is stable for discharge home with recommendations as noted above. This patient was seen by LUCY Guzman under the supervision of Dr. Larson. Discharge Diet: Low fat/ Low Cholesterol, Carb Control Diet Discharge Activity: Return to Normal Activity Weight Bearing Status: Full weight bearing Call your doctor if your incision/area has: Continuous Slow Oozing, Sudden Increased Bleeding, Increased Pain/ Swelling, Increased Redness, Foul Smelling Discharge Call your doctor if you observe: Shortness of breath, Dizziness, Fainting spells, Chest pain, Increased palpitations (irregular heartbeat) Home Medications: Medications to take at Discharge Aspirin [Aspirin, Baby] 81 mg PO DAILY 06/11/16 Atorvastatin Calcium [Lipitor] 80 mg PO QHS 06/11/16 Clopidogrel Bisulfate [Plavix] 75 mg PO DAILY 06/11/16 Lisinopril [Zestril] 10 mg PO DAILY 06/11/16 Nitroglycerin 0.4 mg SL PRN PRN 07/04/16 Bupropion HCl [Bupropion Xl] 300 mg PO DAILY 11/09/16 Pantoprazole Sodium [Protonix] 40 mg PO DAILY 03/18/17 Amlodipine [Norvasc] 10 mg PO DAILY #30 tab 11/08/17 Metformin HCl [Metformin HCl ER] 500 mg PO BID #0 11/08/17 Metoprolol(XL)Succ [Toprol Xl (Beta Carisa)] 50 mg PO DAILY #30 tab 11/08/17 Following Prescrptions Were Given to Patient: Amlodipine [Norvasc] 10 mg PO DAILY #30 tab Metoprolol(XL)Succ [Toprol Xl (Beta Carisa)] 50 mg PO DAILY #30 tab Primary Care Physician: Ascencion Lerma MD [Primary Care Provider] - Please follow up with your Primary Care Physician in: in 1- 2 weeks- you will need to be placed on addtional diabetic meds Please Follow Up With: Yony Sigala MD When: as directed Disposition: Home Minutes spent on discharge:: 35 Patient Condition:: Stable Medical Necessity - Tobacco Use Smoking Status: Former smoker Tobacco Use: Non-smoker Meaningful Use Info Meaningful Use Diagnoses (Choose all that apply): None applicable 11/08/17 4159 <Electronically signed by Essence AYALA> Date Essence Salvador BREAD PAN GREASERLuis FernandoC 11/08/17 1712<Electronically signed by Grant Larson DO> Cosigner Signature (if applicable): Date Grant Larson DO CC: BREAD PAN GREASER-C Essence Salvador; Ascencion Lerma MD; Grant Lasron DO Signed DISCHARGE INSTRUCTION Observed: 11/08/2017 Status: F Source: [place] 11:43 AM [facility] REPOS[facility] Medical Records Department [address] [place] [address] Instructions for Home/Discharge Instructions 11/08/17 1140 MR#: [id number] Acct: [id number] Name: RAND MORALES Rep #: [id number] : 1965 52 From: Grant Larson DO PCP: Ascencion Lerma MD Status: ADM ACE - Discharge Diagnoses Current Active Problems: Current Active and Chronic Problems Obesity (BMI 30.0-34.9) (Chronic) You will use the following diet at home:: Calorie/Carbohydrate Controlled (specify 1200, 1400, etc) - 1800 lyndsey ADA Your food should be the consistency of: Regular Your liquids should be the consistency of: Regular/Thin Discharge Activity: Return to Normal Activity Weight Bearing Status: Full weight bearing Allergies/Adverse Reactions: Allergies No Known Allergies Allergy (Verified 11/06/17 20:28) Medications to take at Discharge Aspirin [Aspirin, Baby] 81 mg PO DAILY 06/11/16 Atorvastatin Calcium [Lipitor] 80 mg PO QHS 06/11/16 Clopidogrel Bisulfate [Plavix] 75 mg PO DAILY 06/11/16 Lisinopril [Zestril] 10 mg PO DAILY 06/11/16 Nitroglycerin 0.4 mg SL PRN PRN 07/04/16 Bupropion HCl [Bupropion Xl] 300 mg PO DAILY 11/09/16 Pantoprazole Sodium [Protonix] 40 mg PO DAILY 03/18/17 Amlodipine [Norvasc] 10 mg PO DAILY #30 tab 11/08/17 Metformin HCl [Metformin HCl ER] 500 mg PO BID #0 11/08/17 Metoprolol(XL)Succ [Toprol Xl (Beta Carisa)] 50 mg PO DAILY #30 tab 11/08/17 The following prescriptions were given: Amlodipine [Norvasc] 10 mg PO DAILY #30 tab Metoprolol(XL)Succ [Toprol Xl (Beta Carisa)] 50 mg PO DAILY #30 tab Primary Care Physician: Ascencion Lerma MD [Primary Care Provider] - Please follow up with your Primary Care Physician in: in 1- 2 weeks- you will need to be placed on addtional diabetic meds Please Follow Up With: Yony Sigala MD When: as directed 11/08/17 1143 <Electronically signed by Grant Larson DO> Date Grant Larson DO CC: Ascencion Lerma MD BEDSIDE GLUCOSE Collected: 11/08/2017 Status: F Source: [place] 10:57 AM [facility] REPOS[facility] TYPE CODE TESTS RESULT OUT OF REFERENCE UNITS RANGE LAB L501.080 70-110 mg/dL High BEDSIDE GLU 227 Result Comment: Insulin Given Dr Orders Followed MANAGEMENT OF PATIENT CARE PER NURSING PROTOCOL Performed By: #### L501.080 #### [facility] Point of Care [address] [place], [place] [id number] BEDSIDE GLUCOSE Collected: 11/08/2017 Status: F Source: [place] 6:55 AM [facility] TYPE CODE TESTS RESULT OUT OF REFERENCE UNITS RANGE LAB L501.080 70-110 mg/dL High BEDSIDE GLU 243 Result Comment: MANAGEMENT OF PATIENT CARE PER NURSING PROTOCOL Performed By: #### L501.080 #### [facility] Point of Care [address] [place] [address] CBC-COMPLETE BLOOD CNT Collected: 11/08/2017 Status: F Source: [place] NO DIFF 5:05 AM [facility] TYPE CODE TESTS RESULT OUT OF RANGE REFERENCE UNITS LAB L100.1000 4.4-11.0 K/mm3 Normal WBC 4.8 LAB L100.1200 4.6-6.2 M/mm3 Normal RBC 4.84 LAB L100.1300 13.0-16.5 g/dl Normal HGB 15.1 LAB L100.1400 40-54 % Normal HCT 41.8 LAB L100.1500 80-94 fL Normal MCV 86.4 LAB L100.1600 27.0-32.0 pg Normal MCH 31.2 LAB L100.1700 32-36 g/gl High MCHC 36.1 LAB L100.1810 11.6-14.6 % Normal RDW CV 13.1 LAB L100.1820 35.1-43.9 fl Normal RDW SD 40.5 LAB L100.1900 150-450 K/mm3 Low PLT 130 LAB L100.2000 6.2-12.0 fl Normal MPV 11.3 Performed By: #### L100.0500 #### [facility] [address] [place], [place], [id number] PROTHROMBIN TIME W/INR Collected: 11/08/2017 Status: F Source: [place] 5:05 AM [facility] TYPE CODE TESTS RESULT OUT OF RANGE REFERENCE UNITS LAB L300.4150 11.7-14.9 SECONDS Normal PROTIME 12.6 LAB L300.4200 Normal INR 0.9 Performed By: #### L300.3900, L300.4310 #### [facility] [address] [place], [place], [address] PARTIAL THROMBOPLAST Collected: 11/08/2017 Status: F Source: [place] TIME 5:05 AM [facility] TYPE CODE TESTS RESULT OUT OF RANGE REFERENCE UNITS LAB L300.4310 24.1-36.2 Seconds Normal PTT 26.1 Performed By: #### L300.3900, L300.4310 #### [facility] [address] [place], [place], [id number] BASIC METABOLIC Collected: 11/08/2017 Status: F Source: [place] PROFILE (BMP) 5:05 AM [facility] TYPE CODE TESTS RESULT OUT OF RANGE REFERENCE UNITS LAB L501.0100 74-106 mg/dL High GLU 225 Result Comment: Glucose result greater than or equal to 200 mg/dL suggests DIABETES MELLITUS per A.D.A. criteria. Please note revised GLUCOSE reference range effective 2017. LAB L501.1000 7-18 mg/dL Normal BUN 7 LAB L501.1100 0.70-1.30 mg/dL Low CREAT,SERUM 0.60 Result Comment: The validity of the calculated GFR AND GFRAA in patients over 70 years has not been determined. Clinical correlation is essential. LAB L501.1110 >60 mL/min Normal EST GFR 150 Result Comment: Non- GFR Calc LAB L501.1115 >60 mL/min Normal EST GFR - AA 181 Result Comment: GFR Calc LAB L501.1255 ml/min Normal Estimated CRCL 158.07 LAB L501.1300 10-20 RATIO BUN/CRE Normal 11.6 LAB L501.2200 8.5-10 mg/dL Low .1 CA 8.1 LAB L501.5300 136-14 mmol/L 5 NA Normal 138 LAB L501.5600 3.5-5. mmol/L 1 K Normal 3.7 Result Comment: Slight Hemolysis, Result may be falsely increased. LAB L501.5900 98-107 mmol/L Normal CL 104 LAB L501.6100 21.0-32.0 mmol/L Normal CO2 25.0 LAB L501.6200 5-15 Normal 9 GAP Performed By: #### L500.2500 #### [facility] [address] [place], [place], [address] BEDSIDE GLUCOSE Collected: 11/07/2017 Status: F Source: [place] 10:35 PM [facility] TYPE CODE TESTS RESULT OUT OF REFERENCE UNITS RANGE LAB L501.080 70-110 mg/dL High BEDSIDE GLU 209 Result Comment: MANAGEMENT OF PATIENT CARE PER NURSING PROTOCOL Performed By: #### L501.080 #### [facility] Point of Care [address] [place] [address] BEDSIDE GLUCOSE Collected: 11/07/2017 Status: F Source: [place] 4:36 PM [facility] TYPE CODE TESTS RESULT OUT OF REFERENCE UNITS RANGE LAB L501.080 70-110 mg/dL High BEDSIDE GLU 254 Result Comment: MANAGEMENT OF PATIENT CARE PER NURSING PROTOCOL Performed By: #### L501.080 #### [facility] Point of Care [address] [place], [place] [id number] Observed: 11/07/2017 Status: F Source: [place] CDIFF (MOLECULAR) 3:05 PM [facility] REPOS[facility] Cdiff-Molecular Normal Reference Range = Negative C. Diff DNA Negative- No toxigenic C. Diff DNA Detected NAAT METHOD Testing was performed using nucleic acid amplification Performed By: #### M100.6796 #### [facility] [address] [place], [place] [address]. [place], [place], [id number] Observed: 11/07/2017 Status: F Source: [place] ENTERIC PATHOGEN 3:05 PM [facility] PANEL STOOL REPOSITORY EP PANEL STOOL Normal Reference Range = Not Detected Not detected for Campylobacter group, Salmonella species, Shigella species, Vibrio Group, Yersinia enterocolitica, EHEC (Shiga Toxin 1, Shiga Toxin 2), Norovirus Gl/Gll, and Rotavirus A. Other common stool pathogens are not detected on this panel include: Aeromonas/Plesiomonas or parasites. Order testing for these organisms separately if suspected. This is an amplified DNA test which makes it both specific and sensitive. CAMPYLOBACTER Not Detected Salmonella Not Detected Shigella sp. Not Detected Shiga Toxin Not Detected Yersinia Not Detected VIBRIO Not Detected Norovirus Not Detected Rotavirus Not Detected Performed By: #### M100.637 #### [facility] [address] [facility] [address] [place], [place], [id number] BEDSIDE GLUCOSE Collected: 11/07/2017 Status: F Source: [place] 11:38 AM [facility] TYPE CODE TESTS RESULT OUT OF REFERENCE UNITS RANGE LAB L501.080 70-110 mg/dL High BEDSIDE GLU 287 Result Comment: MANAGEMENT OF PATIENT CARE PER NURSING PROTOCOL Performed By: #### L501.080 #### [facility] Point of Care [address] [address] [facility] [address] [place], [place] [id number] TROPONIN-I Collected: 11/07/2017 Status: F Source: [place] 10:47 AM [facility] Order Comment: 'TROP' Serial specimen #1, #2, #3, or #4: 4 TYPE CODE TESTS RESULT OUT OF RANGE REFERENCE UNITS LAB L501.4010 <0.06 ng/mL Normal < 0.02 TROPONIN-I Result Comment: TROPONIN-I EXPECTED VALUES <0.05 NEGATIVE 0.06 - 0.59 AT RISK OF PA > OR = 0.60 SUGGEST PA Performed By: #### L501.4010 #### [facility] [address] [place], [address] BEDSIDE GLUCOSE Collected: 11/07/2017 Status: F Source: [place] 6:53 AM [facility] TYPE CODE TESTS RESULT OUT OF REFERENCE UNITS RANGE LAB L501.080 70-110 mg/dL High BEDSIDE GLU 237 Result Comment: MANAGEMENT OF PATIENT CARE PER NURSING PROTOCOL Performed By: #### L501.080 #### [facility] Point of Care [address] [place] [address] CBC-COMPLETE BLOOD CNT Collected: 11/07/2017 Status: F Source: [place] NO DIFF 4:55 AM [facility] TYPE CODE TESTS RESULT OUT OF RANGE REFERENCE UNITS LAB L100.1000 4.4-11.0 K/mm3 Normal WBC 5.4 LAB L100.1200 4.6-6.2 M/mm3 Low RBC 4.50 LAB L100.1300 13.0-16.5 g/dl Normal HGB 13.7 LAB L100.1400 40-54 % Low HCT 39.3 LAB L100.1500 80-94 fL Normal MCV 87.3 LAB L100.1600 27.0-32.0 pg Normal MCH 30.4 LAB L100.1700 32-36 g/gl Normal MCHC 34.9 LAB L100.1810 11.6-14.6 % Normal RDW CV 13.1 LAB L100.1820 35.1-43.9 fl Normal RDW SD 40.7 LAB L100.1900 150-450 K/mm3 Low PLT 143 LAB L100.2000 6.2-12.0 fl Normal MPV 11.5 Performed By: #### L100.0500 #### [facility] [address] [place], [place], [address] BASIC METABOLIC Collected: 11/07/2017 Status: F Source: [place] PROFILE (BMP) 4:55 AM [facility] TYPE CODE TESTS RESULT OUT OF RANGE REFERENCE UNITS LAB L501.0100 74-106 mg/dL High GLU 226 Result Comment: Glucose result greater than or equal to 200 mg/dL suggests DIABETES MELLITUS per A.D.A. criteria. Please note revised GLUCOSE reference range effective 2017. LAB L501.1000 7-18 mg/dL Normal BUN 13 LAB L501.1100 0.70-1.30 mg/dL Low CREAT,SERUM 0.68 Result Comment: The validity of the calculated GFR AND GFRAA in patients over 70 years has not been determined. Clinical correlation is essential. LAB L501.1110 >60 mL/min Normal EST GFR 129 Result Comment: Non- GFR Calc LAB L501.1115 >60 mL/min Normal EST GFR - AA 156 Result Comment: GFR Calc LAB L501.1255 ml/min Normal Estimated CRCL 139.48 LAB L501.1300 10-20 RATIO BUN/CRE Normal 19.0 LAB L501.2200 8.5-10 mg/dL Low .1 CA 7.3 LAB L501.5300 136-14 mmol/L 5 NA Normal 137 LAB L501.5600 3.5-5. mmol/L Low 1 K 3.2 Result Comment: Slight Hemolysis, Result may be falsely increased. LAB L501.5900 98-107 mmol/L Normal CL 105 LAB L501.6100 21.0-32.0 mmol/L Normal CO2 24.0 LAB L501.6200 5-15 Normal 8 GAP Performed By: #### L500.2500, L500.4100 #### [facility] [address] [place], [place], [address] LIPID PROFILE Collected: 11/07/2017 Status: F Source: [place] 4:55 AM [facility] TYPE CODE TESTS RESULT OUT OF RANGE REFERENCE UNITS LAB L501.4900 200 mg/dL High CHOL 211 Result Comment: <200 mg/dL Desirable 200-240 mg/dL Borderline >240 mg/dL High Risk LAB L501.5000 mg/dL High TRIG 901 Result Comment: The drugs N-Acetylcysteine and Metamizole may falsely depress this assay. TRIGLYCERIDE IS GREATER THAN 400 mg/dL. LDL RESULT IS INVALID AND WILL NOT BE REPORTED. Serum Triglycerides Reference Interval Normal <150 mg/dL Borderline high 150 - 199 mg/dL High 200 - 499 mg/dL Very High > or = 500 mg/dL LAB L501.6400 mg/dL Low HDL 25 Result Comment: The drugs N-Acetylcysteine and Metamizole may falsely depress this assay. Reference Range HDL <40 mg/dL Low HDL Cholesterol HDL >or= 60 mg/dL High HDL Cholesterol LAB L501.6500 0-130 mg/dL Test Normal not performed LDL LAB L501.6600 5-40 mg/dL Test Normal not performed VLDL Performed By: #### L500.2500, L500.4100 #### [facility] [address] [place], [address] TROPONIN-I Collected: 11/07/2017 Status: F Source: [place] 4:55 AM [facility] Order Comment: 'TROP' Serial specimen #1, #2, #3, or #4: 3 TYPE CODE TESTS RESULT OUT OF RANGE REFERENCE UNITS LAB L501.4010 <0.06 ng/mL Normal < 0.02 TROPONIN-I Result Comment: TROPONIN-I EXPECTED VALUES <0.05 NEGATIVE 0.06 - 0.59 AT RISK OF PA > OR = 0.60 SUGGEST PA Performed By: #### L501.4010 #### [facility] [address] [place], [address] LIPASE Collected: 11/07/2017 Status: F Source: [place] 4:55 AM [facility] TYPE CODE TESTS RESULT OUT OF RANGE REFERENCE UNITS LAB L501.2450 73-393 U/L Normal LIPASE 118 Performed By: #### L501.2450 #### [facility] [address] [place], [address] TROPONIN-I Collected: 11/07/2017 Status: F Source: [place] 12:33 AM [facility] Order Comment: 'TROP' Serial specimen #1, #2, #3, or #4: 2 TYPE CODE TESTS RESULT OUT OF RANGE REFERENCE UNITS LAB L501.4010 <0.06 ng/mL Normal < 0.02 TROPONIN-I Result Comment: TROPONIN-I EXPECTED VALUES <0.05 NEGATIVE 0.06 - 0.59 AT RISK OF PA > OR = 0.60 SUGGEST PA Performed By: #### L501.4010 #### [facility] [address] [place], [address] HISTORY AND PHYSICAL Observed: 11/06/2017 Status: F Source: [place] EXAM 10:55 PM [facility] REPOSITORY [facility] Medical Records Department [address] [place] [address] History and Physical 11/06/177 MR#: [id number] Acct: [id number] Name: RAND MORALES Rep #: [id number] : 1965 52 From: Bertha Reynoso PCP: Ascencion Lerma MD Status: REG ER Y Location: ED Problem List (1) Obesity (BMI 30.0-34.9) Status: Chronic (2) Myocardial infarct, old Status: Chronic (3) S/P PTCA (percutaneous transluminal coronary angioplasty) Status: Chronic (4) Chest pain Status: Acute Qualifiers: Chest pain type: unspecified Qualified Code(s): R07.9 - Chest pain, unspecified (5) CAD (coronary artery disease) Status: Chronic Qualifiers: Coronary Disease-Associated Artery/Lesion type: unspecified vessel or lesion type [place] vs. 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 inspector insulin use: without termite renewal inspector use Diabetes mellitus complication status: with unspecified complications Qualified Code(s): E11.8 - Type 2 diabetes mellitus with unspecified complications (8) HLD (hyperlipidemia) Status: Chronic Qualifiers: Hyperlipidemia type: unspecified (9) HTN (hypertension) Status: Chronic Qualifiers: Hypertension type: essential hypertension History of Present Illness Date of Admission: 11/06/17 Chief Complaint: N/V/D, CP The patient is a 52 y/o M w/ PMHx: Obesity, CAD s/p PA w/ PCI, Tobacco use, Diabetes mellitus type II, HTN, HLD who presents to the [facility] ED on 11/06/17 with history of ongoing nausea, emesis, loose stools x 24 hours, mildly productive cough (although ongoing for several months) with subjective fever and chills and now onset substernal chest pressure with associated R hand discomfort intermittently over the last 24 hours with associated dyspnea without diaphoresis, noted to worsen with increased activity, specifically while walking up the hill to the ED. He does admit to non-compliance with his diet and since recent illness has been drinking normal gatorade. He notes usually drinking regular sweet tea. In the ED work-up included T 97.9, HR 107-->90, BP 96/51-->100/66, RR 14, 98% on RA, unremarkable CBC, d-dimer 0.43, BMP w/ Na 133, BUN/Cr 12/1.42 (baseline 0.7), glucose 510, trop < 0.02. Past Medical History Past Medical History (Chronic Problems): Chronic Problems Obesity (BMI 30.0-34.9) (Chronic) Myocardial infarct, old (Chronic) S/P PTCA (percutaneous transluminal coronary angioplasty) (Chronic) S/P PTCA (percutaneous transluminal coronary angioplasty) (Chronic) CAD (coronary artery disease) (Chronic) Tobacco abuse (Chronic) CAD (coronary artery disease) (Chronic) Diabetes (Chronic) HLD (hyperlipidemia) (Chronic) HTN (hypertension) (Chronic) Allergies No Known Allergies Allergy (Verified 11/06/17 20:28) Home Medications: Ambulatory Orders Medication Instructions Recorded Aspirin [Aspirin, Baby] 81 mg PO DAILY 06/11/16 Atorvastatin Calcium [Lipitor] 80 mg PO QHS 06/11/16 Surgical History: angioplasty, - - LUE surgery, PCI, T+A. Psychiatric History: No pertinent psych hx Lives: Alone Smoking Status: Former smoker - Quit 05/20/17, 30 year history at least prior. Tobacco Use: Non-smoker Alcohol: None Drugs: None - *Family History Maternal History Items: Diabetes, - Paternal History Items: Diabetes, High Cholesterol, Heart Disease - CAD s/p PA in his 50s., Hypertension, - - diabetes, heart disease Sibling History Items: Heart Disease - Brother w/ CAD/PA in his 50s, fatal. Review of Systems Constitutional: Reports: Anorexia, Chills, Fever, Malaise, Weakness, Fatigue. Denies: Weight Change HEENT: Denies: Head Aches, Sinus Congestion, Sinus Drainage Cardiovascular: Reports: Chest Pain, Chest Pressure. Denies: Palpitations Respiratory: Reports: Cough, Shortness of Breath, Shortness of breath upon exertion, Sputum production. Denies: Shortness of breath at rest Gastrointestinal: Reports: Diarrhea, Nausea, Vomiting. Denies: Abdominal Pain Genitourinary: Denies: Dysuria Musculoskeletal: Denies: Joint Pain, Joint Tenderness Skin: Denies: Rash, Wounds Neurological: Denies: Numbness, Tingling, Focal weakness Psychiatric: Denies: Anxiety, Depression, Homicidal Ideations, Suicidal Ideations Hematologic/ Lymphatic: Denies: Easy Bruising, Easy Bleeding VTE Information - Inpt Only VTE Present on Admission: No VTE Mechan Device Prophylaxis: SCD's VTE Pharm Prophylaxis ordered?: Yes Subjective: Seated upright in the ED bed, fatigued appearance, BP currently SBP 88. Objective: Physical Examination: General: awake, alert, oriented x 3 and cooperative, seated upright in the ED bed, notes still some discomfort, asking for pain regimen. Skin: normal color, turgor, no icterus, cyanosis, BL LE dry, suspect chronic venous stasis. HEENT: AT/NC, EOMI, PERRLA, dry MM, no carotid bruits or JVD noted. Lungs: CTA bilaterally, moderate effort, moderate decrease BL bases, no rales, ronchi or wheezing. Heart: Regular rate and rhythm; no gallop, rub audible, reproducible chest discomfort w/ palpation. Abdomen: soft, obese, NTTP, ND, normal BS, no HSM. Extremities: no cyanosis, clubbing, BL LE dry, suspect chronic venous stasis. Neurological: patient awake, alert, oriented x 3; cognitive function intact; pupils equally reactive to light and accomodation; cranial nerves II-XII grossly normal, moving all 4 extremities, no focal deficits, strength moderately globally decreased. Psychiatric: affect appears fatigued, no acute evidence of depressive or anxiety feelings. - Physical Exam Vital Signs Temp Pulse Resp BP Pulse Ox 97.9 F 108 H 14 114/94 H 97 11/06/17 20:29 11/06/17 20:29 11/06/17 20:29 11/06/17 20:29 11/06/17 20:35 Oxygen Flow Rate (L/min) 2 Oxygen Delivery Method Nasal Cannula Weight: 233 lb 0.458 oz Body Mass Index (BMI) 31.6 Laboratory Tests Past 24 Hrs Assessment/Plan The patient is a 52 y/o M w/ PMHx: Obesity, CAD s/p PA w/ PCI, Tobacco use, Diabetes mellitus type II, HTN, HLD who presents to the [facility] ED on 11/06/17 with history of ongoing nausea, emesis, loose stools x 24 hours, mildly productive cough (although ongoing for several months) with subjective fever and chills and now onset substernal chest pressure with associated R hand discomfort intermittently over the last 24 hours with associated dyspnea without diaphoresis, noted to worsen with increased activity, specifically while walking up the hill to the ED. (1) N/V/D, ? Viral Gastroenteritis: Will admit to PCU given concurrent chest pain, continue aggressive hydration especially given hypotension, will obtain c diff, stool cx with repeat AM CBC. Will not start antibiotics at this time given unclear source pending stool studies as may be viral gastroenteritis. Anti-emetics, pain regimen PRN. Clears with ADAT. Respiratory viral panel pending. (2) Chest Pain, Atypical: EKG in ED ST without acute findings, CXR w/ without acute process, initial trop normal. Will place on a monitored bed to assure no acute myocardial infarction with serial cardiac enzymes and EKGs. Recent stress testing 07/2017 unremarkable. Possible related to recent #1, pending re-assessment in AM may consider Cardiology evaluation, atypical and reproducible discomfort w/ chest palpation. ASA, NG, morphine. FLP in AM. Mag pending. (3) Acute kidney injury: Secondary to GI losses, #1. Admission BUN/Cr /.42 although BUN not markedly elevated, prior baseline creatinine noted to be 0.7. Will hydrate, hold nephrotoxic medications and repeat chemistry in AM. If no improvement would plan FeNa and renal US assessment. (4) Diabetes mellitus type II, Uncontrolled: Elevated glucose upon presentation, 510, noted poor diet compliance. Hold oral home regimen, HgBA1c pending, clears and ADAT to ADA diet, accu checks w/ ISS. Nutrition consulted, pending. (5) CAD: s/p PCI, PA, following w/ Dr. Reid. Will continue home regimen asa, plavix statin, BB with hold parameters. (6) Hypertension: BP low in the ED, ÁLVARO as noted, holding ACEI, continue BB as able to with BP parameters, PRN hydralazine. (7) Hyperlipidemia: Continue home statin regimen. AM FLP. (8) Obesity: Weight loss and lifestyle changes encouraged. (9) Former Tobacco use, ? COPD: Notes vague dyspnea complaints ongoing, chronic cough ongoing, will add PRN albuterol, ATC duonebs, encouraged continued tobacco cessation. (10) GERD: Famotidine. (11) DVT Prophylaxis: SCDs, heparin. Code Visit OBSV E AND M: [id number] Initial observation care L3 11/06/17 2255 <Electronically signed by Bertha Reynoso > Date Bertha Reynoso Cosigner Signature: Date (if applicable) CC: Bertha Reynoso; Ascencion Lerma MD Signed EMERGENCY DEPARTMENT Observed: 11/06/2017 Status: F Source: [place] SUMMARY 10:23 PM [facility] REPOSITORY [facility] Medical Records Department [address] [place] [address] Emergency Department Summary 11/06/17 2221 MR#: [id number] Acct: [id number] Name: RAND MORALES Rep #: [id number] : 1965 52 From: Francoise Javier MD PCP: Ascencion Lerma MD Status: REG ER - ER Visit Summary Date of Service: 11/06/17 Chief Complaint: Chest pain History of Present Illness: The patient is a 52 M presenting with chest pain. He states this started yesterday. He has intermittent episodes of midsternal chest pain with no radiation. He states it was worse when he walked up a hill today. He has nausea vomiting and diarrhea as well. He complains of shortness of breath. He has had a cough. He has had subjective fever. He has a history of hypertension, diabetes, hypercholesteremia, early history of family heart disease, previous smoker. He has 7 stents. He denies PE/DVT risk factors. Physical Examination: Vitals are stable. Patient is afebrile. Alert no acute distress. HEENT exam is unremarkable. Neck is supple. Lungs are clear and equal bilaterally. Heart is regular rate and rhythm. Abdomen is soft nontender nondistended. Extremities are unremarkable. Skin is warm and dry. No focal neurologic deficit. Remainder of exam is unremarkable. Emergency Department Course and Treatment: Patient was given aspirin, morphine on arrival. EKG is sinus tachycardia rate of 105. CBC is normal. Chemistries show sodium 133, creatinine 1.42, glucose 516. He is given IV fluids and insulin subcu. Troponin was negative. D-dimer is normal. Rapid flu was sent and is pending. Chest x-ray shows no acute process. Due to his chest pain which feels typical of his heart pain, discussed with the hospitalist for observation. Disposition: Observation Impression: Chest pain This note was generated with Sciona dictation software. It may contain incorrect words, spelling, and punctuation that were not noted in review of the chart prior to signing ED Disposition - Plan for ED Patient: Chief Complaint: Chest Pain Referrals: Ascencion Lerma MD [Primary Care Provider] - What to do if you have Problems For any increased pain, shortness of breath, bleeding, nausea or vomiting, chest pain, or any unexpected problems, contact your Primary Care Provider. Call [facility] ([phone]) or report to the closest Emergency Room. Call 911 if necessary. 11/06/17 2223 <Electronically signed by Francoise Javier MD> Date Francoise Javier MD Cosigner Signature (If Indicated): Date CC: Ascencion Lerma MD Observed: 11/06/2017 Status: F Source: GUCCI INFLUENZA A+B (RAPID 10:20 PM [facility]) REPOSITORY FLU A/B Rapid Negative test results should be confirmed by culture. Order Rapid Viral Culture for Influenzae A+B ([id number]) if clinically indicated. Influenza Ag, Direct Presumptive NEGATIVE for Influenza A/B Antigen (See Note) Performed By: #### M101.0101 #### [facility] [address] [place], [address] Observed: 11/06/2017 Status: F Source: [place] RESPIRATORY PANEL 10:20 PM [facility] MOLECULAR REPOSITORY RP PANEL ADENOVIRUS Not Detected HUMAN METAPHNEUMO Not Detected INFLUENZA A Not Detected INFLUENZA A (SUBTYPE H1) Not Detected INFLUENZA A (SUBTYPE H3) Not Detected INFLUENZA B Not Detected PARAINFLUENZA 1 Not Detected PARAINFLUENZA 2 Not Detected PARAINFLUENZA 3 Not Detected PARAINFLUENZA 4 Not Detected RHINOVIRUS Not Detected RSV A Not Detected RSV B Not Detected NAAT METHOD Testing was performed using nucleic acid amplification Performed By: #### M100.638 #### [facility] [address] [place], [address] CHEST 1 VIEW Observed: 11/06/2017 Status: F Source: [place] (PORTABLE) 8:32 PM [facility] REPOSITORY [facility] Imaging Services [address] [place] [address] Chest 1 View (Portable) MR#: [id number] Acct: [id number] Name: RAND MORALES Rep #: [id number] : 1965 M 52 From: Jessica Ignacio MD PCP: Ascencion Lerma MD Status: [facility] ER Study: Chest 1 View (Portable) Date of Exam: 11/06/17 Exam# [id number] Ordering Dr: Francoise Javier MD STUDY: X-RAY CHEST REASON FOR EXAM: Male, 52 years old. Chest pain and shortness of breath. TECHNIQUE: Single AP portable view of the chest. COMPARISON: August 07, 2017. FINDINGS: Cardiac monitoring leads are present. The lungs are expanded. There is mild interstitial thickening present in both lungs. There is no demonstrated pleural abnormality. Normal size heart. Normal mediastinum and sang. There is prominence of the pulmonary hilar arteries without peripheral pulmonary vascular congestion. There is atherosclerotic calcification of the aortic arch with tortuosity. There are diffuse degenerative changes of the visualized thoracic spine. Normal visualized ribs, clavicles, and shoulders. There is no demonstrated abnormality of the visualized soft tissue structures of the upper abdomen. RAD/Chest 1 View (Portable) IMPRESSION: No radiographic evidence of acute cardiopulmonary disease. Electronically Signed: Jessica Ignacio MD at 21:04 EDT , Service support , CC: Francoise Javier MD; Ascencion Lerma MD Student Outreach Coordinator: Signed CBC W/DIFF, AUTOMATED Collected: 11/06/2017 Status: F Source: [place] 8:30 PM [facility] REPOSITORY TYPE CODE TESTS RESULT OUT OF RANGE REFERENCE UNITS LAB L100.1000 4.4-11.0 K/mm3 Normal WBC 7.9 LAB L100.1200 4.6-6.2 M/mm3 Normal RBC 5.32 LAB L100.1300 13.0-16.5 g/dl Normal HGB 16.5 LAB L100.1400 40-54 % Normal HCT 45.8 LAB L100.1500 80-94 fL Normal MCV 86.1 LAB L100.1600 27.0-32.0 pg Normal MCH 31.0 LAB L100.1700 32-36 g/gl Normal MCHC 36.0 LAB L100.1810 11.6-14.6 % Normal RDW CV 13.1 LAB L100.1820 35.1-43.9 fl Normal RDW SD 40.8 LAB L100.1900 150-450 K/mm3 Normal PLT 179 LAB L100.2000 6.2-12.0 fl Normal MPV 11.6 LAB L100.2100 47-70 % Normal NEUT% 64.2 LAB L100.2200 19-41 % Normal LY% 24.8 LAB L100.2300 0-10 % Normal MONO% 8.9 LAB L100.2400 0-5 % Normal EO% 1.5 LAB L100.2500 0-1 % Normal BASO% 0.5 LAB L100.2550 0.0-0.9 % Normal IM GRAN % 0.100 Result Comment: IG% - Immature Granulocytes (promyelocytes, myelocytes and metamyelocytes) > 1% indicates that a LEFT SHIFT is Present. LAB L100.2620 2.0-7.7 X10 3/uL Normal Absolute Neut 5.1 LAB L100.2720 0.83-4.51 X10 3/ul Normal Absolute Lymph 1.96 Performed By: #### L100.0100, L500.2500, L501.4010 #### [facility] [address] [place], [address] BASIC METABOLIC Collected: 11/06/2017 Status: F Source: [place] PROFILE (BMP) 8:30 PM [facility] REPOSITORY Order Comment: 'TROP' Serial specimen #1, #2, #3, or #4: 1 TYPE CODE TESTS RESULT OUT OF RANGE REFERENCE UNITS LAB L501.0100 74-106 mg/dL High alert GLU 510 Result Comment: Glucose result greater than or equal to 200 mg/dL suggests DIABETES MELLITUS per A.D.A. criteria. Please note revised GLUCOSE reference range effective 2017. LAB L501.1000 7-18 mg/dL Normal BUN 12 LAB L501.1100 0.70-1.30 mg/dL High CREAT,SERUM 1.42 Result Comment: The validity of the calculated GFR AND GFRAA in patients over 70 years has not been determined. Clinical correlation is essential. LAB L501.1110 >60 mL/min Low EST GFR 56 Result Comment: Non- GFR Calc LAB L501.1115 >60 mL/min Normal EST GFR - AA 67 Result Comment: GFR Calc LAB L501.1255 ml/min Normal Estimated CRCL 66.79 LAB L501.1300 10-20 RATIO Low BUN/CRE 8.5 LAB L501.2200 8.5-10 mg/dL Normal .1 CA 8.5 LAB L501.5300 136-14 mmol/L Low 5 NA 133 Result Comment: CALLED [facility] ED WITH CRITICAL GLUC BY MAF 11-06-17 AT 2106PM READ BACK BY SAME LAB L501.5600 3.5-5.1 mmol/L Normal K 3.7 LAB L501.5900 98-107 mmol/L Normal CL 98 LAB L501.6100 21.0-32.0 mmol/L Normal CO2 21.0 LAB L501.6200 5-15 Normal GAP 14 Performed By: #### L100.0100, L500.2500, L501.4010 #### [facility] [address] [place], [address] TROPONIN-I Collected: 11/06/2017 Status: F Source: [place] 8:30 PM [facility] REPOSITORY Order Comment: 'TROP' Serial specimen #1, #2, #3, or #4: 1 TYPE CODE TESTS RESULT OUT OF RANGE REFERENCE UNITS LAB L501.4010 <0.06 ng/mL Normal < 0.02 TROPONIN-I Result Comment: TROPONIN-I EXPECTED VALUES <0.05 NEGATIVE 0.06 - 0.59 AT RISK OF PA > OR = 0.60 SUGGEST PA Performed By: #### L100.0100, L500.2500, L501.4010 #### [facility] [address] [place], [place], [address] D-DIMER QUANTITATIVE Collected: 11/06/2017 Status: F Source: [place] (DVT/PE) 8:30 PM [facility] REPOSITORY TYPE CODE TESTS RESULT OUT OF RANGE REFERENCE UNITS LAB L300.8000 0.27-0.49 FEU/ug/m Normal D-DIMER 0.43 QUANT Result Comment: NORMAL D-Dimer level (<0.50) indicates no DVT or PE. Performed By: #### L300.8000 #### [facility] [address] [place], [address] PHOSPHORUS Collected: 11/06/2017 Status: F Source: [place] 8:30 PM [facility] REPOSITORY TYPE CODE TESTS RESULT OUT OF RANGE REFERENCE UNITS LAB L501.2300 2.5-4.9 mg/dL Normal PHOS 3.8 Performed By: #### L501.2300, L501.5200 #### [facility] [address] [place], [address] MAGNESIUM Collected: 11/06/2017 Status: F Source: [place] 8:30 PM [facility] REPOSITORY TYPE CODE TESTS RESULT OUT OF RANGE REFERENCE UNITS LAB L501.5200 1.6-2.6 mg/dL Normal MG 1.8 Result Comment: Please note revised Magnesium reference range effective 2017. Performed By: #### L501.2300, L501.5200 #### [facility] [address] [place], [address] HEMOGLOBIN A1C Collected: 11/06/2017 Status: F Source: [place] 8:30 PM [facility] REPOSITORY TYPE CODE TESTS RESULT OUT OF RANGE REFERENCE UNITS LAB L501.9985 4.2-6.3 % High HGB A1C 12.4 Performed By: #### L501.9985 #### [facility] [address] [place], [address] PROGRESS Observed: 11/03/2017 Status: COMPLETED Source: [place] 7:49 PM [facility] REPOSITORY HNO ID: [id number] Author: Ascencion Lerma Service: (none) Author Type: Physician Type: Progress Notes Filed: 11/03/2017 7:53 PM Note Text: Reason for Visit Patient presents with: Recheck: 2 month follow up, just lost brother would like something for nerves Rand Morales is a 52 year old male who presents here today for Above Complaints.. Health Maintenance DILATED RETINAL EXAM TETANUS DIABETIC FOOT EXAM ONE PNEUMOVAX PRIOR TO AGE 65 PROSTATE CANCER SCREENING DISCUSSION COLORECTAL CANCER SCREENING,SEE MODIFIER INFLUENZA(1) HBA1C URINE ALBUMIN CREATININE RATIO LDL HPI Today he is very sad because his brother a couple weeks ago, he cannot stop crying, feels lonely at his house. Family told him to let me know We discussed also that he should go for grief counseling but he does not want to go for it. Notes he was close to his brother and just needs something to help him. He has not got any of his blood work done for a year. No problem-specific Assessment AND Plan notes found for this encounter. PAST MEDICAL HISTORY Diagnosis Date - Diabetes (HCC) PAST SURGICAL HISTORY Procedure Laterality Date - UPPER EXTREM DPLX MAMMARY MAP No family history on file. Social History Substance Use Topics - Smoking status: Former Smoker Packs/day: 2.00 Years: 40.00 Quit date: 05/20/2017 - Smokeless tobacco: Never Used Comment: is down to 1 pack a day for 2 years - Alcohol use 2.0 oz/week 2 Shots of liquor per week Comment: occasionally/rarely Past medical history, appointments, medications, allergies reviewed. Pertinent Lab/Diagnostic Studies are reviewed and discussed today Current Outpatient Prescriptions: - metFORMIN (GLUCOPHAGE) 500 mg tablet - aspirin, enteric coated (ADULT LOW DOSE ASPIRIN) 81 mg EC tablet - atorvastatin (LIPITOR) 80 mg tablet - buPROPion XL (WELLBUTRIN XL) 300 mg 24 hr tablet - carvedilol (COREG) 6.25 mg tablet - clopidogrel (PLAVIX) 75 mg tablet - lisinopril (PRINIVIL) 10 mg tablet - pantoprazole DR (PROTONIX) 40 mg tablet - escitalopram oxalate (LEXAPRO) 20 mg tablet - busPIRone (BUSPAR) 5 mg tablet - Blood-Glucose Meter monitoring kit - ranitidine (ZANTAC) 150 mg tablet - nicotine (NICODERM) 21 mg/24 hr Review of Systems CONSTITUTIONAL: No fevers, chills night sweats, unintended weight loss CARDIOVASCULAR: No chest pain, dyspnea, palpitations, orthopnea, PND, ankle edema. PULM: No dyspnea, unexplained cough. GI: No dysphagia/odynophagia, problematic reflux, constipation, diarrhea, changes in stool habits, hematochezia, melena. : No new urinary complaints, including dysuria, gross hematuria or pyuria. NEURO: No new balance problems, peripheral weakness/paresthesias or numbness of concern. Physical Exam BP 126/78 Pulse 97 Resp 16 Wt 107 kg (236 lb) SpO2 94% BMI 32.01 kg/m2 General appearance: Well appearing, alert, in no acute distress, well nourished. Skin: Skin color, texture, turgor normal, no suspicious rashes or lesions Head: Normocephalic, no masses, lesions, tenderness or abnormalities Eyes: Anicteric sclera. Pupils are equally round and reactive to light. Extraocular movements are intact. Lungs: Lungs clear to auscultation. No wheezing, rhonchi, rales Heart: RRR without murmur, gallop, or rubs. Extremities: No deformities, edema, skin discoloration, clubbing or cyanosis. Good capillary refill. ASSESSMENT/PLAN: 1. Uncontrolled type 2 diabetes mellitus with diabetic neuropathy, without long-term current use of insulin (HCC) - ICD9: 250.62, 357.2, ICD10: E11.40, E11.65 (primary diagnosis) Controlled. Asked him to put a reminder to get his blood work done - HGB A1C - ALBUMIN/CREAT RATIO RND UR 2. Essential hypertension - ICD9: 401.9, ICD10: I10 - Recommend home blood pressure monitoring, to bring results in on next visit - Goal of BP <130/80 3. Hyperlipidemia, unspecified hyperlipidemia type - ICD9: 272.4, ICD10: E78.5 Poor control., not given blood work in a year - LIPID PANEL BASIC - COMP METABOLIC PANEL 4. Prostate cancer screening - ICD9: V76.44, ICD10: Z12.5 - Recommended regular aerobic exercise. - Follow up for annual exam in one year. - PSA/PROSTSPECAG SCRN 5. Grief reaction - ICD9: 309.0, ICD10: F43.20 Discussed that she should see a counselor but he denies 6. Anxiety and depression - ICD9: 300.00, 311, ICD10: F41.8 - ESCITALOPRAM 20 MG TABLET - BUSPIRONE 5 MG TABLET - ESCITALOPRAM 20 MG TABLET - BUSPIRONE 5 MG TABLET ASCENCION LERMA MD CNOV Observed: 11/03/2017 Status: COMPLETED Source: [place] 6:40 PM [facility] REPOSITORY Office Visit (INTMWS) RAND MORALES ([id number]) 1965 M Date Time Provider Department 11/03/17 6:40 PM ASCENCION LERMA INTAbhinavWS During your visit today, we recorded the following information about you: Pulse Respiration Blood pressure Weight 97/minute 16/minute 126/78 107 kg ASCENCION LERMA MD 11/03/2017 7:53 PM Signed Reason for Visit Patient presents with: Recheck: 2 month follow up, just lost brother would like something for nerves Rand Morales is a 52 year old male who presents here today for Above Complaints.. Health Maintenance DILATED RETINAL EXAM TETANUS DIABETIC FOOT EXAM ONE PNEUMOVAX PRIOR TO AGE 65 PROSTATE CANCER SCREENING DISCUSSION COLORECTAL CANCER SCREENING,SEE MODIFIER INFLUENZA(1) HBA1C URINE ALBUMIN CREATININE RATIO LDL HPI Today he is very sad because his brother a couple weeks ago, he cannot stop crying, feels lonely at his house. Family told him to let me know We discussed also that he should go for grief counseling but he does not want to go for it. Notes he was close to his brother and just needs something to help him. He has not got any of his blood work done for a year. No problem-specific Assessment ANDamp; Plan notes found for this encounter. PAST MEDICAL HISTORY Diagnosis Date - Diabetes (HCC) PAST SURGICAL HISTORY Procedure Laterality Date - UPPER EXTREM DPLX MAMMARY MAP No family history on file. Social History Substance Use Topics - Smoking status: Former Smoker Packs/day: 2.00 Years: 40.00 Quit date: 05/20/2017 - Smokeless tobacco: Never Used Comment: is down to 1 pack a day for 2 years - Alcohol use 2.0 oz/week 2 Shots of liquor per week Comment: occasionally/rarely Past medical history, appointments, medications, allergies reviewed. Pertinent Lab/Diagnostic Studies are reviewed and discussed today Current Outpatient Prescriptions: - metFORMIN (GLUCOPHAGE) 500 mg tablet - aspirin, enteric coated (ADULT LOW DOSE ASPIRIN) 81 mg EC tablet - atorvastatin (LIPITOR) 80 mg tablet - buPROPion XL (WELLBUTRIN XL) 300 mg 24 hr tablet - carvedilol (COREG) 6.25 mg tablet - clopidogrel (PLAVIX) 75 mg tablet - lisinopril (PRINIVIL) 10 mg tablet - pantoprazole DR (PROTONIX) 40 mg tablet - escitalopram oxalate (LEXAPRO) 20 mg tablet - busPIRone (BUSPAR) 5 mg tablet - Blood-Glucose Meter monitoring kit - ranitidine (ZANTAC) 150 mg tablet - nicotine (NICODERM) 21 mg/24 hr Review of Systems CONSTITUTIONAL: No fevers, chills night sweats, unintended weight loss CARDIOVASCULAR: No chest pain, dyspnea, palpitations, orthopnea, PND, ankle edema. PULM: No dyspnea, unexplained cough. GI: No dysphagia/odynophagia, problematic reflux, constipation, diarrhea, changes in stool habits, hematochezia, melena. : No new urinary complaints, including dysuria, gross hematuria or pyuria. NEURO: No new balance problems, peripheral weakness/paresthesias or numbness of concern. Physical Exam BP 126/78 Pulse 97 Resp 16 Wt 107 kg (236 lb) SpO2 94% BMI 32.01 kg/m2 General appearance: Well appearing, alert, in no acute distress, well nourished. Skin: Skin color, texture, turgor normal, no suspicious rashes or lesions Head: Normocephalic, no masses, lesions, tenderness or abnormalities Eyes: Anicteric sclera. Pupils are equally round and reactive to light. Extraocular movements are intact. Lungs: Lungs clear to auscultation. No wheezing, rhonchi, rales Heart: RRR without murmur, gallop, or rubs. Extremities: No deformities, edema, skin discoloration, clubbing or cyanosis. Good capillary refill. ASSESSMENT/PLAN: 1. Uncontrolled type 2 diabetes mellitus with diabetic neuropathy, without long-term current use of insulin (HCC) - ICD9: 250.62, 357.2, ICD10: E11.40, E11.65 (primary diagnosis) Controlled. Asked him to put a reminder to get his blood work done - HGB A1C - ALBUMIN/CREAT RATIO RND UR 2. Essential hypertension - ICD9: 401.9, ICD10: I10 - Recommend home blood pressure monitoring, to bring results in on next visit - Goal of BP ANDlt;130/80 3. Hyperlipidemia, unspecified hyperlipidemia type - ICD9: 272.4, ICD10: E78.5 Poor control., not given blood work in a year - LIPID PANEL BASIC - COMP METABOLIC PANEL 4. Prostate cancer screening - ICD9: V76.44, ICD10: Z12.5 - Recommended regular aerobic exercise. - Follow up for annual exam in one year. - PSA/PROSTSPECAG SCRN 5. Grief reaction - ICD9: 309.0, ICD10: F43.20 Discussed that she should see a counselor but he denies 6. Anxiety and depression - ICD9: 300.00, 311, ICD10: F41.8 - ESCITALOPRAM 20 MG TABLET - BUSPIRONE 5 MG TABLET - ESCITALOPRAM 20 MG TABLET - BUSPIRONE 5 MG TABLET ASCENCION LERMA MD Referring Provider: ASCENCION LERMA [[id number]] Allergies As of Date: 11/03/2017 (No Known Allergies) Date Reviewed: 08/27/2017 Reviewed by: Chelle Herrera LPN - Fully Assessed Reason for Visit: Recheck [92] Cmt: 2 month follow up, just lost brother would like something for nerves Primary Visit Diagnosis:Uncontrolled type 2 diabetes mellitus with diabetic neuropathy, without long-term current use of insulin (HCC) [E11.40, E11.65] Other Visit Diagnoses:Essential hypertension [I10] Hyperlipidemia, unspecified hyperlipidemia type [E78.5] Prostate cancer screening [Z12.5] Grief reaction [F43.20] Anxiety and depression [F41.8] Order(s):HGB A1C [FSLTO6P] Order #: [id number] FUTURE PSA/PROSTSPECAG SCRN [SQPSAS1] Order #: [id number] FUTURE LIPID PANEL BASIC [SQLIPB] Order #: [id number] FUTURE COMP METABOLIC PANEL [SQCMP] Order #: [id number] FUTURE ALBUMIN/CREAT RATIO RND UR [SQUACR] Order #: [id number] FUTURE escitalopram oxalate (LEXAPRO) 20 mg tabletTake 1 tablet by mouth once daily.Disp: 30 tabletRfl: 2 busPIRone (BUSPAR) 5 mg tabletTake 1 tablet by mouth three times daily.Disp: 30 tabletRfl: 1 Prescriptions as of 11/03/2017 Sig: METFORMIN 500 MG TABLET Take 1 tablet by mouth twice * ASPIRIN 81 MG TABLET,DELAYED * Take 1 tablet by mouth once d* ATORVASTATIN 80 MG TABLET Take 1 tablet by mouth once d* BUPROPION XL 300 MG 24 HR TAB Take 1 tablet by mouth once d* CARVEDILOL 6.25 MG TABLET Take 1 tablet by mouth twice * CLOPIDOGREL 75 MG TABLET Take 1 tablet by mouth once d* LISINOPRIL 10 MG TABLET Take 1 tablet by mouth once d* PANTOPRAZOLE 40 MG TABLET,DEL* Take 1 tablet by mouth once d* ESCITALOPRAM 20 MG TABLET Take 1 tablet by mouth once d* BUSPIRONE 5 MG TABLET Take 1 tablet by mouth three * BLOOD-GLUCOSE METER KIT Glucose Meter of Choice - Kit* RANITIDINE 150 MG TABLET Take 1 tablet by mouth daily * NICOTINE 21 MG/24 HR DAILY TR* Apply 1 Patch as directed angel* Medication notes this encounter RANITIDINE 150 MG TABLET >> Anat Inman Ma 11/03/2017 6:39 PM >> STORM KATEANAT WedNov 03, 2017 6:39 PM Ins wouldn't cover Problem List As Of Date 11/03/2017 Noted Resolved Type 1 diabetes mellitus with diabetic neuropat*INVALID FOR*05/19/2017 Hyperlipidemia [E78.5] INVALID FOR* More... HTN (hypertension) [I10] INVALID FOR* More... Back pain [M54.9] INVALID FOR* DDD (degenerative disc disease) [QRK6527] INVALID FOR* Right shoulder pain [M25.511] INVALID FOR* Coronary artery disease involving ekuk heart *INVALID FOR* More... Uncontrolled type 2 diabetes mellitus with diab*INVALID FOR* More... Prescriptions ordered this encounter Disp Refills Start End ESCITALOPRAM 20 MG TABLET 30 t* 2 11/03/2017 11/03/2017 Route: ORAL Sig: Take 1 tablet by mouth once daily. BUSPIRONE 5 MG TABLET 30 t* 1 11/03/2017 11/03/2017 Route: ORAL Sig: Take 1 tablet by mouth three times daily. ESCITALOPRAM 20 MG TABLET 30 t* 2 11/03/2017 Route: ORAL Sig: Take 1 tablet by mouth once daily. BUSPIRONE 5 MG TABLET 30 t* 1 11/03/2017 Route: ORAL Sig: Take 1 tablet by mouth three times daily. Medications Discontinued During This Encounter escitalopram oxalate (LEXAPRO) 20 mg* 30 t* 2 11/03/2017 11/03/2017 Route: ORAL Sig: Take 1 tablet by mouth once daily. Disc: Reason for discontinue is not on file. busPIRone (BUSPAR) 5 mg tablet 30 t* 1 11/03/2017 11/03/2017 Route: ORAL Sig: Take 1 tablet by mouth three times daily. Disc: Reason for discontinue is not on file. Encounter Status:Closed by ASCENCION LERMA MD on 11/03/17 PROGRESS Observed: 10/01/2017 Status: COMPLETED Source: [place] 1:51 PM [facility] REPOSITORY HNO ID: [id number] Author: Celia Browne Cma Service: (none) Author Type: (none) Type: Progress Notes Filed: 10/10/2017 10:11 PM Note Text: PHMA TEAMLET DOCUMENTATION Provider Action/FYI: Please file uacr. Patient has appointment 11/03. I will call closer to appointment to remind patient of appointment and to get labs done prior. PSR Action/FYI: Teamlet has identified patient by name and date of . Team: myself, bebeto Ram kim ? Last Office Visit:08/27/2017 ? Next Office Visit: 11/03/2017 ? Last BP/Labs: Blood Pressure: Last 3 Encounter BP Readings: Date: BP: 08/27/2017 142/88 06/22/2017 120/82 05/19/2017 138/84 Lipids: Cholesterol, Total (mg/dL) Date Value 11/16/2016 146 HDL Cholesterol (mg/dL) Date Value 11/16/2016 25 LDL Cholesterol (mg/dL) Date Value 11/16/2016 Unable to calculate due to increased Triglycerides. See LDL-Chol, Direct. Triglyceride (mg/dL) Date Value 11/16/2016 475 HGB A1C: Lab Results Component Value Date HBA1C 10.9 11/16/2016 HBA1C 11.8 08/08/2009 TSH: No results found for: TSH) Care Gap: DM - Needs dilated eye exam - HM overdue Last HGBA1C is NOT under 9% HTN - Last BP NOT under 140/90 Plan: ? Type of appointment needed: NONE - remind patient of upcoming appointment with labs prior. (order pending for uacr other labs already ordered) Labs, HM and Immunization: Health Maintenance Due: DILATED RETINAL EXAM due on 1965 TETANUS due on 1976 DIABETIC FOOT EXAM due on 1981 (added to upcoming appointment notes) ONE PNEUMOVAX PRIOR TO AGE 65 due on 1981 PROSTATE CANCER SCREENING DISCUSSION due on 2015 - ordered COLORECTAL CANCER SCREENING,SEE MODIFIER due on 2015 INFLUENZA(1) due on 04/23/2017 HBA1C due on 05/19/2017 - ordered Celia Browne Cdl B Driver CNPTOUTREACH Observed: 10/01/2017 Status: COMPLETED Source: [place] 12:00 AM [facility] REPOSITORY Patient Outreach (INTMWS) RAND MORALES ([id number]) 1965 M Date Time Provider Department 10/01/17 CELIA BROWNE ([facility]) INTMWS During your visit today, we recorded the following information about you: Celia Browne [facility] 10/10/2017 10:11 PM Signed PHMA TEAMLET DOCUMENTATION Provider Action/FYI: Please file uacr. Patient has appointment 11/03. I will call closer to appointment to remind patient of appointment and to get labs done prior. PSR Action/FYI: Teamlet has identified patient by name and date of . Team: myself, bebeto Ram kim ? Last Office Visit:08/27/2017 ? Next Office Visit: 11/03/2017 ? Last BP/Labs: Blood Pressure: Last 3 Encounter BP Readings: Date: BP: 08/27/2017 142/88 06/22/2017 120/82 05/19/2017 138/84 Lipids: Cholesterol, Total (mg/dL) Date Value 11/16/2016 146 HDL Cholesterol (mg/dL) Date Value 11/16/2016 25 LDL Cholesterol (mg/dL) Date Value 11/16/2016 Unable to calculate due to increased Triglycerides. See LDL-Chol, Direct. Triglyceride (mg/dL) Date Value 11/16/2016 475 HGB A1C: Lab Results Component Value Date HBA1C 10.9 11/16/2016 HBA1C 11.8 08/08/2009 TSH: No results found for: TSH) Care Gap: DM - Needs dilated eye exam - HM overdue Last HGBA1C is NOT under 9% HTN - Last BP NOT under 140/90 Plan: ? Type of appointment needed: NONE - remind patient of upcoming appointment with labs prior. (order pending for uacr other labs already ordered) Labs, HM and Immunization: Health Maintenance Due: DILATED RETINAL EXAM due on 1965 TETANUS due on 1976 DIABETIC FOOT EXAM due on 1981 (added to upcoming appointment notes) ONE PNEUMOVAX PRIOR TO AGE 65 due on 1981 PROSTATE CANCER SCREENING DISCUSSION due on 2015 - ordered COLORECTAL CANCER SCREENING,SEE MODIFIER due on 2015 INFLUENZA(1) due on 04/23/2017 HBA1C due on 05/19/2017 - ordered Celia [place] Cdl B Driver Allergies As of Date: 10/01/2017 (No Known Allergies) Date Reviewed: 08/27/2017 Reviewed by: Chelle Herrera LPN - Fully Assessed Reason for Visit: PHMA/Care Gap Outreach [[id number]] Primary Visit Diagnosis:Uncontrolled type 2 diabetes mellitus with diabetic neuropathy, without long-term current use of insulin (HCC) [E11.40, E11.65] Order(s):ALBUMIN/CREAT RATIO RND UR [SQUACR] Order #: [id number] FUTURE Prescriptions as of 10/01/2017 Sig: BLOOD-GLUCOSE METER KIT Glucose Meter of Choice - Kit* METFORMIN 500 MG TABLET Take 1 tablet by mouth twice * RANITIDINE 150 MG TABLET Take 1 tablet by mouth daily * ASPIRIN 81 MG TABLET,DELAYED * Take 1 tablet by mouth once d* ATORVASTATIN 80 MG TABLET Take 1 tablet by mouth once d* BUPROPION XL 300 MG 24 HR TAB Take 1 tablet by mouth once d* CARVEDILOL 6.25 MG TABLET Take 1 tablet by mouth twice * CLOPIDOGREL 75 MG TABLET Take 1 tablet by mouth once d* LISINOPRIL 10 MG TABLET Take 1 tablet by mouth once d* PANTOPRAZOLE 40 MG TABLET,DEL* Take 1 tablet by mouth once d* NICOTINE 21 MG/24 HR DAILY TR* Apply 1 Patch as directed angel* Problem List As Of Date 10/01/2017 Noted Resolved Type 1 diabetes mellitus with diabetic neuropat*INVALID FOR*05/19/2017 Hyperlipidemia [E78.5] INVALID FOR* More... HTN (hypertension) [I10] INVALID FOR* More... Back pain [M54.9] INVALID FOR* DDD (degenerative disc disease) [CAQ9213] INVALID FOR* Right shoulder pain [M25.511] INVALID FOR* Coronary artery disease involving ekuk heart *INVALID FOR* More... Uncontrolled type 2 diabetes mellitus with diab*INVALID FOR* More... Follow-up and Disposition History Recorded Encounter Status:Closed by ALEJANDRO COLLAZO on 10/10/17 ALLERGIES ALLERGIES DATE TYPE / CODE NAME / CODE REACTION SEVERITY SOURCE 04/29/2018 Drug No Known Unknown [facility] Allergy/416 Allergies/P42444 Hospital 640493(SNOM 0388(RXNORM) Repository ED CT) /[id number] NO KNOWN [facility] 6(SNOMED ALLERGIES Health [facility]) Repository Drug NO KNOWN [facility] Class/88595 ALLERGIES [place] 1003(SNOMED Repository CT) ENCOUNTERS ENCOUNTERS ADMIT/DISCHARGE ACCOUNT NUMBER ADMITTING ENCOUNTER LOCATION SOURCE CLASS 08/09/2018/08/09/20 [id number] Emergency [address] ding:ED Repository 07/07/2018/07/07/20 [id number] Ambulatory [address] Repository 06/22/2018/06/23/20 [id number] Emergency BBuilding:ER Alexa [address] [place] [address] Repository 04/29/2018/04/29/20 [id number] Emergency [address] ding:ED Repository 03/12/2018/03/12/20 [id number] Ambulatory [address] Repository 03/12/2018/03/12/20 [id number] Ambulatory [address] Repository 03/12/2018/03/14/20 [id number] Ambulatory [address] Repository 03/07/2018/03/11/20 [id number] Ambulatory [address] Repository 02/28/2018/02/29/20 [id number] Emergency [address] ding:ED Repository 01/18/2018/01/19/20 [id number] Emergency [address] ding:ED Repository 01/13/2018/01/15/20 [id number] Ambulatory [address] Repository 01/10/2018/01/11/20 [id number] Ambulatory BMSBuilding: [address] Repository 01/09/2018/01/11/20 [id number] Yaya Hassanan Ambulatory [address] ding:PCURoom Repository : [id number]: 1 01/09/2018 [id number] Yaya Hassanan Ambulatory BMSBuilding: [address] BMS.[facility] Repository 01/09/2018 [id number] Michael Stefano Ambulatory BMSBuilding: [address] [facility]MS.[facility] Repository 01/09/2018/01/11/20 [id number] Ambulatory BMSBuilding: [address] Repository 12/17/2017 [id number] Ambulatory [facility] MEDICAL Repository CENTERBuildi ng:CAGWS 11/12/2017/11/17/19 [id number] Ambulatory [address] Repository 11/08/2017/11/09/19 [id number] Ambulatory BMSBuilding: [address] Repository 11/06/2017/11/09/19 [id number] White, Ambulatory [address] ding:PCURoom Repository : [id number]: 1 11/06/2017 [id number] [place], Ambulatory BMSBuilding: [address] BMS.[facility]ly [facility] Repository 11/06/2017/11/09/19 [id number] Ambulatory BMSBuilding: [address] Repository 11/06/2017/11/09/19 [id number] Ambulatory BMSBuilding: [address] Repository 11/06/2017 [id number] Ambulatory BMSBuilding: [address] BMS.[facility] Repository 11/03/2017/11/04/19 [id number] Ambulatory [address] Repository PAYERS PAYERS ENCOUNTER GUARANTOR PAYER SUBSCRIBER SOURCE 08/09/2018 RAND Zheng Primary RAND [id number] Insurance[facility] HENRY: Community [place] RDSNICHO, *IN [facility] [address]Ppv: Number: Repository [id number] (HP) Date:5641-32-38ONMO CLAIMS [address] [place] [phone]: 08/09/[address] Insurance:SELF PAY [facility] Number: Effective Repository Date:2018-08-09 06/22/2018 RAND J Primary RAND J [facility] [id number] INSCOPolicy Number: [id number] Repository force [place], [id number] [place] [address]Cne: Date:2018-06-22 - [place], [place] [id number] [address]Akv: [phone] (HP)Tel: (000) Name:NATTN Claims [phone] (WP) DeptPO Box (HP)Tel: (000) [place], [place] 000-0000 (WP) [address]SO: 04/29/2018 Rand J Primary Rand J [address] [id number] 1/2 Insurance:[facility] [facility] KeatleyDOB: Community WESTERN *IN [facility] [id number] Number: Repository [address]Khv: 330 [id number] [phone] (HP) Date:0494-30-68CIJC CLAIMS [address] [place] [phone]: 04/29/2018 Secondary NOT GIVENUNK [place] Insurance:SELF PAY [facility] Number: Effective Repository Date:2018-04-29 02/28/2018 Rand J Primary Rand J [address] [id number] 1/2 Insurance:MYCARE CRSC KeatleyDOB: Community WESTERN *IN [facility] [id number], [place] Number: Repository [phone]: 330 [id number] [phone] (HP) Date:4402-25-30KCNG CLAIMS [address] [address]RD: 02/28/[address] Insurance:SELF PAY [facility] Number: Effective Repository Date:2018-02-28 01/18/2018 Rand J Primary Randaris [place] [id number] 1/2 Insurance:[facility]CARE CRSC KeatleyDOB: Community WESTERN *IN [address] Number: Repository [id number]: 330 [id number] [phone] (HP) Date:5457-04-16GWDA CLAIMS [address] [place] [phone]: 01/18/2018 Secondary NOT GIVENUNK [place] Insurance:SELF PAY [facility] Number: Effective Repository Date:2018-01-18 01/10/2018 Rand J Primary Rand J [address] [id number] 1/2 Insurance:MYCARE CRSC KeatleyDOB: Community WESTERN *IN [address] Number: Repository [id number]: 330 [id number] [phone] (HP) Date:0254-38-48EIDD CLAIMS [address] [place] [phone]: 01/10/2018 Secondary NOT GIVENUNK Gu[place] Insurance:SELF PAY [facility] Number: Effective Repository Date:2018-01-10 01/09/2018 Rand J Primary Rand J [address] [id number] 1/2 Insurance:[employer]CARE CRSC KeatleyDOB: Community WESTERN *IN [address] Number: Repository [id number]: 330 [id number] [phone] (HP) Date:8992-10-51RGBP CLAIMS [address] [place] [phone]: 01/09/2018 Secondary NOT GIVENUNK [place] Insurance:SELF PAY [facility] Number: Effective Repository Date:2018-01-08 01/09/2018 Rand J Primary Rand J [place]cci [id number] 1/2 Insurance:MYCARE CRSC KeatleyDOB: Community WESTERN *IN [facility] [id number], [place] Number: Repository [address]Wdv: 330 [id number] [phone] (HP) Date:8802-32-18OYME CLAIMS [address] [place] [address]RI: 01/09/[address] Insurance:SELF PAY [facility] Number: Effective Repository Date:2018-01-09 01/09/2018 Rand J Primary Rand Duckworth [id number] 08/24 Insurance:[facility]CARE [facility] KeatleyDOB: Community WESTERN *IN [facility] [id number], [place] Number: Repository [address]Dzj: 330 [id number] [phone] () Date:5757-65-22PCWE CLAIMS [address] [place] [phone]: 01/09/[address] Insurance:SELF PAY [facility] Number: Effective Repository Date:2018-01-09 01/09/2018 Rand J Primary Rand Duckworth [id number] 08/24 Insurance:[facility] KeatleyDOB: [facility] WESTERN *IN [facility] [id number], [place] Number: Repository [id number]: 330 [id number] [phone] () Date:2850-42-25OMJC CLAIMS [address] [place] [phone]: 01/09/[address] Secondary [address] Insurance:SELF PAY [facility] Number: Effective Repository Date:2018-01-09 12/17/2017 RAND Primary RAND Fuller LORENDOB: Insurance:[facility] TEEB: [facility] [id number] Repository 1/2 [place] MEDIC[place], [place] Number: [id number]: 330 [id number] [phone] (HP) Date: 12/17/2017 Secondary RAND [facility] Insurance:MYCARE LORENDOB: [facility] [id number] Repository MEDICAIDPolicy Number: [id number] Date: 11/08/2017 Rand Marce Primary Randaris Duckworth [id number] 1/2 Insurance:[facility]CARE CR[facility] KeatleyDOB: Community WESTERN *IN [facility] [id number], [place] Number: Repository [address]Kcg: 330 [id number] [phone] (HP) Date:3881-01-83BFJU CLAIMS [address] [place] [phone]: 11/08/[address] Insurance:SELF PAY [facility] Number: Effective Repository Date:2017-11-08 11/06/2017 Rand J Primary Rand J [place]cci [id number] 1/2 Insurance:[facility] [facility] KeatleyDOB: Community WESTERN *[place] [address]-02-12[place] Number: Repository [id number]: 330 [id number] [phone] (HP) Date:2054-08-32SMAS CLAIMS [address] [place] [address]RF: 11/06/[address] Insurance:SELF PAY [facility] Number: Effective Repository Date:2017-11-06 11/06/2017 Rand J Primary Rand J Gucci [id number] 1/2 Insurance:[employer] CR[facility] KeatleyDOB: Community WESTERN *[place] [address]-02-12[place] Number: Repository [id number]: 330 [id number] [phone] (HP) Date:2276-48-89ARLT CLAIMS [address] [address]XX: 11/06/2017 Secondary NOT GIVENUNK [place] Insurance:SELF PAY [facility] Number: Effective Repository Date:2017-11-06 11/06/2017 Rand J Primary Rand J Gucci [id number] 1/2 Insurance:MYCARE CRSC KeatleyDOB: Community WESTERN *IN [address] Number: Repository [id number]: 330 [id number] [phone] (HP) Date:4060-48-05PDFG CLAIMS [address] [address]WB: 11/06/2017 Secondary NOT GIVENUNK Gucci Insurance:SELF PAY [facility] Number: Effective Repository Date:2017-11-06 11/06/2017 Rand J Primary Rand J [address] [id number] 1/2 Insurance:[employer] CRSC KeatleyDOB: Community WESTERN *IN [address] Number: Repository [id number]: 330 [id number] [phone] (HP) Date:3936-32-07QUZM CLAIMS [address] [address]JU: 11/06/[address] Insurance:SELF PAY [facility] Number: Effective Repository Date:2017-11-06 11/06/2017 Rand J Primary Rand J [address] [id number] 1/2 Insurance:[facility] [facility] KeatleyDOB: Community WESTERN *IN [address] Number: Repository [id number]: 330 [id number] [phone] (HP) Date:9935-71-48OZGX [address]S [address] [address]CI: 11/06/[address] Insurance:SELF PAY [facility] Number: Effective Repository Date:2017-11-06
== END 2018-08-09 15:58 | disposition home or self-care (01) ==
PROVIDERS: Emergency Provider Emergency Medicine; Family Provider Internal Medicine; PCP Internal Medicine
DX: S06.0X0A Concussion without loss of consciousness, initial encounter (principal); S01.511A Laceration without foreign body of lip, initial encounter; W01.0XXA Fall on same level from slipping, tripping and stumbling without subsequent striking against object, initial encounter; I25.10 Atherosclerotic heart disease of native coronary artery without angina pectoris; I25.2 Old myocardial infarction; I10 Essential (primary) hypertension; F12.90 Cannabis use, unspecified, uncomplicated; E66.9 Obesity, unspecified; Z68.32 Body mass index [BMI] 32.0-32.9, adult; Z79.82 Long term (current) use of aspirin; Z79.01 Long term (current) use of anticoagulants; Z79.899 Other long term (current) drug therapy; Z72.0 Tobacco use
CPT/HCPCS: 12013; 90471; 90715; 99284

== ENCOUNTER 2019-02-11 22:44 | Observation (INO) | payer MEDICARE, SELFPAY ==
[2019-02-11 22:46] VITALS: BP 127/81; PULSE 88; RESP 20; TEMP 36.4; O2SAT 94; BMI 34.0
--- NOTE | 2019-02-11 22:47 | ED.RN ---
CALLED FOR EKG PER RN REQUEST, PULLED OLD EKGS FOR
--- NOTE | 2019-02-11 22:58 | EKG12_ITS ---
Test Reason : CP ADMISSION Blood Pressure : / mmHG Vent. Rate : 082 BPM Atrial Rate : 082 BPM P-R Int : 162 ms QRS Dur : 096 ms QT Int : 384 ms P-R-T Axes : 053 114 087 degrees QTc Int : 448 ms Normal sinus rhythm Inferior-posterior infarct , age undetermined Abnormal ECG When compared with ECG of 29-APR-2018 18:44, No significant change was found Confirmed by EDUARDO GIBSON, DEVYN ([id number]), design editor BLANCA EPSTEIN ([id number]) on 02/14/2019 8:06:05 AM Referred By: MIKAYLA Confirmed By:DEVYN CLARK MD
--- NOTE | 2019-02-11 22:58 | RAD_ITS ---
STUDY: X-RAY CHEST REASON FOR EXAM: Male, 53 years old. Chest pain. TECHNIQUE: PA and lateral views of the chest. COMPARISON: January 29, 2018 FINDINGS: There is no new focal consolidation. Normal size heart. Normal mediastinum and sang. Normal visualized pulmonary arteries. Normal visualized aortic arch and descending thoracic aorta. Normal visualized thoracic spine. Normal visualized ribs, clavicles, and shoulders. There is no demonstrated abnormality of the visualized soft tissue structures of the upper abdomen. RAD/Chest PA and Lateral IMPRESSION: No acute cardiopulmonary process. Electronically Signed: Leatha Chiang MD at 23:25 EDT Tel , Service support ,
[2019-02-11 23:06] LABS: Absolute Lymphocyte Count 3.02 X10^3/ul (0.83-4.51); Absolute Neutrophil Count 3.2 X10^3/uL (2.0-7.7); Basophil# 0.03 X10^3/uL; Basophil% 0.4 % (0-1); Eosinophil# 0.11 X10^3/uL; Eosinophils% 1.6 % (0-5); Hematocrit 40.8 % (40-54); Hemoglobin 14.5 g/dl (13.0-16.5); Lymphocyte # 3.02 X10^3/ul (4.0); Lymphocyte % 44.2 % (19-41); Mean Corp Hgb Conc 35.5 g/gl (32-36); Mean Corpuscular Hgb 31.5 pg (27.0-32.0); Mean Corpuscular Volume 88.7 fL (80-94); Mean Platelet Vol. 11.2 fl (6.2-12.0); Monocyte% 7.3 % (0-10); Neutrophil # 3.16 X10^3/uL (2.7-7.7); Neutrophil % 46.4 % (47-70); POSITIVE COUNT NO; POSITIVE DIFFERENTIAL NO; POSITIVE MORPHOLOGY NO; Platelet Count 168 K/mm3 (150-450); RBC Distribution Width CV 13.2 % (11.6-14.6); RBC Distribution Width SD 42.9 fl (35.1-43.9); White Blood Count 6.8 K/mm3 (4.4-11.0)
[2019-02-11 23:11] VITALS: O2SAT 95
[2019-02-11] MEDS: Nitroglycerin SL (ED/IMG/CATH) 0.4 MG TABLET SUBLINGUAL (23:14)
[2019-02-11 23:20] LABS: Anion Gap 4 (5-15); BUN 18 mg/dL (7-18); Chloride 101 mmol/L (98-107); Creatinine, Serum 1.06 mg/dL (0.70-1.30); EST Glomerular Filtration Rate 78 mL/min (>60); Est Glom Filt Rate - Afr Amer 94 mL/min (>60); Estimated Creatinine Clearance 88.46 ml/min; Glucose 324 mg/dL (74-106); Potassium 3.6 mmol/L (3.5-5.1); Sodium Level 136 mmol/L (136-145)
[2019-02-11] MEDS: Morphine 4 MG/ML Syringe IV (23:29)
[2019-02-11 23:31] VITALS: BP 115/60; PULSE 87; RESP 20; O2SAT 94
--- NOTE | 2019-02-11 23:45 | ED.DCSUM_ITS ---
- ER Visit Summary Date of Service: 02/11/19 Chief Complaint: Chest pain History of Present Illness: The patient is a 53 M who presents with chest pain. He is been having intermittent chest pain for about a month however it became severe tonight. The current episode began about 1 hour ago. He describes as stabbing. His pain over the last month is been migratory sometimes on the left sometimes on the right currently is complaining of sharp right-sided pain. No history of DVT or pulmonary embolism. No recent travel or surgery. He also states he became lightheaded and had a near syncopal episode tonight felt short of breath and nauseated. He was given aspirin and nitroglycerin by EMS. His pain improved from 10 out of 10 to 7 out of 10. He also reports cough. Physical Examination: Afebrile vitals normal Moist mucous membranes Heart regular rate and rhythm Lungs are clear Right-sided chest tenderness Abdomen soft Alert Extremities nontender Normal color no diaphoresis Test Results: G shows sinus rhythm at a rate of 87 with an incomplete right bundle branch block no acute change from prior no acute ischemic changes. Chest x-ray shows no acute process. Labs are notable for glucose of 324, troponin is negative. Emergency Department Course and Treatment: Patient was given further sublingual nitroglycerin here with no change in symptoms. He was then given IV morphine. Some features of his chest pain are atypical given that it is sharp and reproducible. However I would not expect shortness of breath near syncope and nausea just from chest wall pain and he does have a known history of coronary disease. He had a heart cath over 1 year ago which did show some disease that was not amenable to stenting. Therefore I do feel at minimum he will require observation and serial enzymes. Patient will be discussed with hospitalist and admitted. Treatment Plan: [] Disposition: Admit Impression: Chest pain This note was generated with [employer] dictation software. It may contain incorrect words, spelling, and punctuation that were not noted in review of the chart prior to signing ED Disposition - Plan for ED Patient: Referrals: Trang He MD [Primary Care Provider] -
--- NOTE | 2019-02-11 23:53 | PCM.HP.STD ---
Problem List (1) Chest pain Status: Acute Qualifiers: Chest pain type: unspecified Qualified Code(s): R07.9 - Chest pain, unspecified History of Present Illness Date of Admission: 02/11/19 Chief Complaint: chest pain The patient is a 53 year old M with a significant history of CVA; CAD with 6 stents; anxiety and depression; and tobacco abuse who presented with 1 month history of episodic migratory pain across his chest. Emergency department doctor reported that patient's pain was 10 out of 10 and after he had received aspirin and nitroglycerin by the paramedics his pain went to 7 out of 10. However upon my examination patient denies receiving any pain relief from nitroglycerin. He reported that nitroglycerin rather gave him headache and morphine took headache away. Patient reports improvement of his chest pain with morphine. Associated with his symptoms is nausea; vomiting and syncope. His last coronary angiogram was in October 2017 where he had a proximal severe disease in a small vessel of the diagonal. Reportedly his father had a first heart attack in his 40s and with heart disease at 59. Moreover his brother also had heart disease and at 59. Past Medical History Past Medical History (Chronic Problems): Chronic Problems Obesity (BMI 30.0-34.9) (Chronic) Myocardial infarct, old (Chronic) S/P PTCA (percutaneous transluminal coronary angioplasty) (Chronic) S/P PTCA (percutaneous transluminal coronary angioplasty) (Chronic) CAD (coronary artery disease) (Chronic) Tobacco abuse (Chronic) CAD (coronary artery disease) (Chronic) Diabetes (Chronic) HLD (hyperlipidemia) (Chronic) HTN (hypertension) (Chronic) Allergies No Known Allergies Allergy (Verified 04/29/18 18:38) Home Medications: Ambulatory Orders Medication Instructions Recorded Clopidogrel Bisulfate [Plavix] 75 mg PO DAILY 06/11/16 Bupropion HCl [Bupropion Xl] 300 mg PO DAILY 11/09/16 Metformin HCl [Metformin HCl ER] 500 mg PO BID #0 11/08/17 Carvedilol 6.25 mg PO BID 01/09/18 Escitalopram Oxalate [Lexapro] 20 mg PO DAILY 01/09/18 Ranitidine [Zantac] 150 mg PO QHS 01/09/18 busPIRone [Buspar] 5 mg PO TID 01/09/18 Loratadine 10 mg PO DAILY 02/28/18 Insulin Glargine,Hum.rec.anlog 22 unit SQ QHS 02/11/19 [Tammi Olson U-100] Surgical History: angioplasty, - - LUE surgery, PCI, T+A. Psychiatric History: No pertinent psych hx Smoking Status: Current every day smoker - *Family History Sibling History Items: Heart Disease - Brother w/ CAD/[place] in his 50s, fatal. Maternal History Items: Diabetes, - Paternal History Items: Diabetes, High Cholesterol, Heart Disease - CAD s/p [place] in his 50s., Hypertension, - - diabetes, heart disease Review of Systems Constitutional: Denies: Chills, Fever, Weight Change HEENT: Denies: Head Aches, Sinus Congestion, Sinus Drainage Cardiovascular: Reports: Chest Pain, Syncope. Denies: Palpitations Respiratory: Reports: Cough. Denies: Shortness of breath at rest, Sputum production Gastrointestinal: Reports: Nausea, Vomiting. Denies: Abdominal Pain Genitourinary: Denies: Dysuria Musculoskeletal: Reports: - - Complain of transient pain in left toe while being examined.. Denies: Joint Pain, Joint Tenderness Skin: Denies: Rash, Wounds Neurological: Denies: Numbness, Tingling, Focal weakness Psychiatric: Reports: Anxiety, Depression. Denies: Homicidal Ideations, Suicidal Ideations Hematologic/ Lymphatic: Denies: Easy Bruising, Easy Bleeding VTE Information - Inpt Only VTE Present on Admission: No VTE Mechan Device Prophylaxis: None VTE Pharm Prophylaxis ordered?: Yes - Physical Exam General: Alert, Oriented x3, Cooperative HEENT: Atraumatic, PERRLA, EOMI, Normocephalic Neck: Supple, No JVD, Negative Carotid Bruits Lungs: Wheezes - Mild, - - Tender chest Cardiovascular: Regular rate, No murmurs Abdomen: Bowel Sounds Present, Soft, Non Tender Extremities: No edema, Capillary Refill Less than 3 Seconds Skin: No rashes, No breakdown Musculoskeletal: No Tenderness to Palpation of Joints or Extremities Neurological: Cranial nerves II-XII grossly intact Psych/Mental Status: Normal Affect, Appropriate Vital Signs Temp Pulse Resp BP Pulse Ox 97.5 F L 87 20 H 115/60 94 02/11/19 22:46 02/11/19 23:31 02/11/19 23:31 02/11/19 23:31 02/11/19 23:31 Oxygen Flow Rate (L/min) 2 Oxygen Delivery Method Nasal Cannula Weight: 113.8 kg Body Mass Index (BMI) 34.0 Finger Stick Blood Glucose 365 Laboratory Tests Past 24 Hrs 02/11/19 02/11/19 22:45 22:45 WBC 6.8 RBC 4.60 Hgb 14.5 Hct 40.8 MCV 88.7 MCH 31.5 MCHC 35.5 RDW 13.2 RDW Differential 42.9 Plt Count 168 MPV 11.2 Immature Gran % (Auto) 0.100 Neut % (Auto) 46.4 L Lymph % (Auto) 44.2 H [place] % (Auto) 7.3 Eos % (Auto) 1.6 Baso % (Auto) 0.4 Absolute Neuts (auto) 3.2 Absolute Lymphs (auto) 3.02 Total Counted Not Reportable Sodium 136 Potassium 3.6 Chloride 101 Carbon Dioxide 31.0 Anion Gap 4 L BUN 18 Creatinine 1.06 Estim Creat Clear Calc 88.46 Est GFR (MDRD) Af Amer 94 Est GFR (MDRD) Non-Af 78 BUN/Creatinine Ratio 17.0 Glucose 324 H Calcium 9.0 Troponin I < 0.015 Assessment/Plan All Active Problems Mental status alteration (Acute) Angina pectoris (Acute) Chest pain (Acute) Chest pain (Acute) Arterial complication of procedure (Acute) Acute chest pain (Acute) The patient is a 53 year old M with a significant history of CVA; CAD with 6 stents; anxiety and depression; and tobacco abuse who presented history with 1 month history of episodic migratory pain across his chest; tender chest; and with last cardiac cath showing proximal severe disease in diagonal vessel. Chest pain Admit to a monitored bed on PCU CXR independently reviewed confirms no acute cardiopulmonary process. Chest x-ray was independently reviewed and agree with radiologist interpretation. EKG independently reviewed confirms incomplete right bundle branch block. Old records reviewed showed EKG was essentially unchanged from previous. ASA 81 mg p.o. daily Because of complaint of headache with nitroglycerin, nitroglycerin was not ordered. Morphine as needed for pain We will check lipid panel. High intensity statin ordered Serial cardiac enzymes Stat EKG as needed for chest pain Carvedilol and Plavix continued Heart Score is 4 moderate score three-point (history was moderately suspicious; EKG unremarkable; age 45-64; more than 3 risk factors or history of atherosclerotic disease) Because of his concerning family history of heart disease in history of multiple stents we will consult cardiology to evaluate patient's Diabetes mellitus On presentation his blood glucose was not within goal Basal insulin continued. Hold metformin since it is too early in his admission. Accu-Chek QA CHS and 2 PM with correction scale insulin. Tobacco abuse Wellbutrin continued Nicotine patch ordered Counselled. Depression and anxiety BuSpar and Lexapro continued DVT prophylaxis Subcutaneous Lovenox Code Visit Inpatient E&M: 67371 Init Hosp L3
[2019-02-12] VITALS (11 sets, daily range): BP systolic 130–155; BP diastolic 85–95; PULSE 70–87; RESP 16–18; TEMP 36.5–36.7; O2SAT 94–98; BMI 33.0
[2019-02-12] MEDS: Morphine 2 MG/ML Syringe IV ×6 (00:22→14:16)
--- NOTE | 2019-02-12 00:48 | EKG12_ITS ---
Test Reason : CP Blood Pressure : / mmHG Vent. Rate : 087 BPM Atrial Rate : 087 BPM P-R Int : 160 ms QRS Dur : 098 ms QT Int : 380 ms P-R-T Axes : 049 113 080 degrees QTc Int : 457 ms Normal sinus rhythm Incomplete right bundle branch block Possible Right ventricular hypertrophy Abnormal ECG Confirmed by MAXINE LAWSON ([id number]), city editor AFSHIN GIRARD ([id number]) on 02/16/2019 8:31:54 AM Referred By: LUIS Confirmed By:MAXINE LAWSON
[2019-02-12] MEDS: Atorvastatin Calcium 80 MG Tablet PO (01:25)
[2019-02-12] MEDS: 0.9% NaCl Peripheral Flush Adult/Peds IV ×4 (01:28→04:29)
[2019-02-12] MEDS: Insulin Lispro 100 UNIT/ML INSULN.PEN SC ×3 (01:36→11:11)
[2019-02-12 02:01] LABS: Bedside Glucose 290 mg/dL (70-110)
[2019-02-12 05:44] LABS: International Normalized Ratio 0.9; Prothrombin Time (Protime)PT. 12.2 SECONDS (11.7-14.9)
[2019-02-12 06:28] LABS: Cholesterol 199 mg/dL (200); High Density Lipoprotein 23 mg/dL; Triglycerides 1101 mg/dL
[2019-02-12] MEDS: busPIRone 5 MG Tablet PO ×2 (06:43→14:16)
[2019-02-12 07:10] LABS: Bedside Glucose 246 mg/dL (70-110)
[2019-02-12] MEDS: Aspirin 81 MG TAB.CHEW PO (08:09)
[2019-02-12 09:40] LABS: Hemoglobin A1c 9.4 % (4.2-6.3)
[2019-02-12] MEDS: Clopidogrel Bisulfate 75 MG Tablet PO (09:57)
[2019-02-12] MEDS: Loratadine 10 MG Tablet PO (09:57)
[2019-02-12] MEDS: Escitalopram Oxalate 20 MG Tablet PO (09:57)
[2019-02-12] MEDS: buPROPion (XL) 300 MG TABLET.XL PO (09:57)
[2019-02-12] MEDS: Enoxaparin 40 MG/0.4 ML Syringe SC (09:57)
[2019-02-12] MEDS: Carvedilol 6.25 MG Tablet PO (09:57)
[2019-02-12 11:26] LABS: Bedside Glucose 232 mg/dL (70-110)
--- NOTE | 2019-02-12 13:01 | PCM.CONS.C ---
Problem List (1) S/P PTCA (percutaneous transluminal coronary angioplasty) Status: Chronic (2) Chest pain Status: Acute Qualifiers: Chest pain type: unspecified Qualified Code(s): R07.9 - Chest pain, unspecified (3) CAD (coronary artery disease) Status: Chronic Qualifiers: Coronary Disease-Associated Artery/Lesion type: unspecified vessel or lesion type [place] vs. transplanted heart: unspecified whether [place] or transplanted heart Associated angina: angina presence unspecified Qualified Code(s): I25.10 - Atherosclerotic heart disease of [place] coronary artery without angina pectoris Reason for Consult Date of Consultation: 02/12/19 Reason for Consultation: chest pain History of Present Illness: The patient is a 53 year old M with history of coronary artery disease status post multiple PCI procedures in the past, most recent heart catheterization from October 2017 revealed patency of the stents and moderate disease involving the LAD, the left circumflex, and severe disease in a small diagonal branch. He presented to the hospital with recurrent symptoms of right-sided sharp chest pain associated with neck and shoulder pain, usually worsened by moving his neck or lifting his shoulder or touching the area. This has been associated with left-sided dull chest pain that has been there for the past month, steady and constant, very mild, not related to physical exertion, staying there in the background all the time. His ECG shows no acute ST-T wave changes. His cardiac markers were negative x3. He says his symptoms are dissimilar to his anginal type chest pain that he had prior with his PCI procedures. [] Past Medical History Allergies/Adverse Reactions: Allergies No Known Allergies Allergy (Verified 04/29/18 18:38) Home Medications: Ambulatory Orders Medication Instructions Recorded Clopidogrel Bisulfate [Plavix] 75 mg PO DAILY 06/11/16 Bupropion HCl [Bupropion Xl] 300 mg PO DAILY 11/09/16 Metformin HCl [Metformin HCl ER] 500 mg PO BID #0 11/08/17 Carvedilol 6.25 mg PO BID 01/09/18 Escitalopram Oxalate [Lexapro] 20 mg PO DAILY 01/09/18 Ranitidine [Zantac] 150 mg PO QHS 01/09/18 busPIRone [Buspar] 5 mg PO TID 01/09/18 Loratadine 10 mg PO DAILY 02/28/18 Insulin Glargine,Hum.rec.anlog 22 unit SQ [facility] 02/11/19 [Tammi Olson U-100] Past Medical History (Chronic Problems): Chronic Problems Obesity (BMI 30.0-34.9) (Chronic) Myocardial infarct, old (Chronic) S/P PTCA (percutaneous transluminal coronary angioplasty) (Chronic) S/P PTCA (percutaneous transluminal coronary angioplasty) (Chronic) CAD (coronary artery disease) (Chronic) Tobacco abuse (Chronic) CAD (coronary artery disease) (Chronic) Diabetes (Chronic) HLD (hyperlipidemia) (Chronic) HTN (hypertension) (Chronic) Surgical History: angioplasty, - - LUE surgery, PCI, T+A. Psychiatric History: No pertinent psych hx - *Family History Sibling History Items: Heart Disease - Brother w/ CAD/[place] in his 50s, fatal. Maternal History Items: Diabetes, - Paternal History Items: Diabetes, High Cholesterol, Heart Disease - CAD s/p [place] in his 50s., Hypertension, - - diabetes, heart disease Smoking Status: Current every day smoker Review of Systems - Review of Systems General: Denies: Fever, Night Sweats, Fatigue Cardiovascular: Denies: Chest Discomfort, Shortness of Breath, Orthopnea, PND, Peripheral Edema, Palpitations, Lightheadedness, Dizziness, Near Syncope, Syncope Respiratory: Denies: Cough, Sputum Production, Hemoptysis Gastrointestinal: Denies: Hematemesis, Hematochezia, Melena Genitourinary: Denies: Dysuria, Hematuria Skin: Denies: Rash Objective: Vital Signs Temp Pulse Resp BP Pulse Ox 97.7 F L 76 16 155/88 H 98 02/12/19 10:17 02/12/19 10:32 02/12/19 10:17 02/12/19 10:17 02/12/19 10:17 Oxygen Flow Rate (L/min) 2 Oxygen Delivery Method Nasal Cannula Weight: 243 lb 6.245 oz Body Mass Index (BMI) 33.0 Finger Stick Blood Glucose 365 Intake and Output for Last 24 Hours 02/10/19 02/11/19 02/12/19 23:59 23:59 23:59 Intake Total 240 / 240 Balance 240 / 240 General: Awake, Alert, Oriented x 3 HEENT: PERRL, EOMI, Sclera Non Icteric Neck: Supple, Good ROM, No Lymph Node Enlargement Lungs: Clear to auscultation Cardiovascular: Regular Rhythm, Normal S1, Normal S2, No Murmurs, No Rubs, No Gallops Vascular: No Carotid Bruits, Normal Femoral Pulses, Normal Radial Pulses, Normal Dorsalis Pedal Pulse, Normal Posterior Tibial Pulses Abdomen: Bowel Sounds Present, Soft, Non Tender, No HSM, No Organomegaly Extremities: No Cyanosis, No Clubbing, No edema, - - His right-sided sharp chest pain is reproducible by touching the right side of the chest, passively moving his right arm, or touching the right side of his neck. Neurological: No Focal Motor or Sensory Deficit 02/11/19 22:25: Hemoglobin A1c 9.4 H 02/11/19 22:45: WBC 6.8, RBC 4.60, Hgb 14.5, Hct 40.8, MCV 88.7, MCH 31.5, MCHC 35.5, RDW 13.2, RDW Differential 42.9, Plt Count 168, MPV 11.2, Immature Gran % (Auto) 0.100, Neut % (Auto) 46.4 L, Lymph % (Auto) 44.2 H, [place] % (Auto) 7.3, Eos % (Auto) 1.6, Baso % (Auto) 0.4, Absolute Neuts (auto) 3.2, Total Counted Not Reportable 02/11/19 22:45: Sodium 136, Potassium 3.6, Chloride 101, Carbon Dioxide 31.0, Anion Gap 4 L, BUN 18, Creatinine 1.06, Est GFR (MDRD) Af Amer 94, Est GFR (MDRD) Non-Af 78, BUN/Creatinine Ratio 17.0, Glucose 324 H, Calcium 9.0, Troponin I < 0.015 02/12/19 01:38: Troponin I < 0.015 02/12/19 04:45: PT 12.2, INR 0.9 02/12/19 04:45: Triglycerides 1101 H, Cholesterol 199, LDL Cholesterol TNP, VLDL Cholesterol TNP, HDL Cholesterol 23 L 02/12/19 04:45: Troponin I < 0.015 Rhythm: EKG: ECHO: Stress Test: Cardiac Cath: PCI: CT Surgery: Holter monitor: EPS: PPM: CXR: Chest CT Scan: Assessment/Plan Impression: 1. Musculoskeletal chest neck and shoulder pains. 2. CAD status post multiple PCI procedures. Most recent heart catheterization from October 2017 showed no significant major artery 3. CAD and patency of stents. 4. Diabetes mellitus type 2 5. tobacco abuse plan: His chest symptoms are clearly musculoskeletal in nature. No need for any further cardiac work-up at the present time. 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
--- NOTE | 2019-02-12 13:35 | PCM.PROGNOTE ---
Subjective: Patient seen and examined. Resting comfortably in bed. Reports he continues to have mild chest pressure which is continuous. Does not report any aggravating or alleviating factors. Denies dizziness, lightheadedness, shortness of breath. - Physical Exam General: Alert, Oriented x3, Cooperative HEENT: Atraumatic, PERRLA, EOMI, Normocephalic Neck: Supple, No JVD, Negative Carotid Bruits Lungs: Clear to auscultation, Normal air movement Cardiovascular: Regular rate, Regular Rhythm, Normal S1, Normal S2, No murmurs Abdomen: Bowel Sounds Present, Soft, Non Tender, Non-Distended Extremities: No clubbing, No cyanosis, No edema, Capillary Refill Less than 3 Seconds Skin: No rashes, No breakdown Musculoskeletal: No Tenderness to Palpation of Joints or Extremities Neurological: Cranial nerves II-XII grossly intact, Neuro grossly intact Psych/Mental Status: Normal Affect, Appropriate Vital Signs Temp Pulse Resp BP Pulse Ox 97.7 F L 76 16 155/88 H 98 02/12/19 10:17 02/12/19 10:32 02/12/19 10:17 02/12/19 10:17 02/12/19 10:17 Oxygen Flow Rate (L/min) 2 Oxygen Delivery Method Nasal Cannula Weight: 243 lb 6.245 oz Body Mass Index (BMI) 33.0 Finger Stick Blood Glucose 365 Intake and Output for Last 24 Hours 02/10/19 02/11/19 02/12/19 23:59 23:59 23:59 Intake Total 240 / 240 Balance 240 / 240 Laboratory Tests Past 24 Hrs 02/11/19 02/11/19 02/11/19 22:25 22:45 22:45 WBC 6.8 RBC 4.60 Hgb 14.5 Hct 40.8 MCV 88.7 MCH 31.5 MCHC 35.5 RDW 13.2 RDW Differential 42.9 Plt Count 168 MPV 11.2 Immature Gran % (Auto) 0.100 Neut % (Auto) 46.4 L Lymph % (Auto) 44.2 H [place] % (Auto) 7.3 Eos % (Auto) 1.6 Baso % (Auto) 0.4 Absolute Neuts (auto) 3.2 Absolute Lymphs (auto) 3.02 Total Counted Not Reportable PT INR Sodium 136 Potassium 3.6 Chloride 101 Carbon Dioxide 31.0 Anion Gap 4 L BUN 18 Creatinine 1.06 Estim Creat Clear Calc 88.46 Est GFR (MDRD) Af Amer 94 Est GFR (MDRD) Non-Af 78 BUN/Creatinine Ratio 17.0 Glucose 324 H Hemoglobin A1c 9.4 H Calcium 9.0 Troponin I < 0.015 Triglycerides Cholesterol LDL Cholesterol VLDL Cholesterol HDL Cholesterol 02/12/19 02/12/19 02/12/19 01:38 04:45 04:45 WBC RBC Hgb Hct MCV MCH MCHC RDW RDW Differential Plt Count MPV Immature Gran % (Auto) Neut % (Auto) Lymph % (Auto) [place] % (Auto) Eos % (Auto) Baso % (Auto) Absolute Neuts (auto) Absolute Lymphs (auto) Total Counted PT 12.2 INR 0.9 Sodium Potassium Chloride Carbon Dioxide Anion Gap BUN Creatinine Estim Creat Clear Calc Est GFR (MDRD) Af Amer Est GFR (MDRD) Non-Af BUN/Creatinine Ratio Glucose Hemoglobin A1c Calcium Troponin I < 0.015 Triglycerides 1101 H Cholesterol 199 LDL Cholesterol TNP VLDL Cholesterol TNP HDL Cholesterol 23 L 02/12/19 04:45 WBC RBC Hgb Hct MCV MCH MCHC RDW RDW Differential Plt Count MPV Immature Gran % (Auto) Neut % (Auto) Lymph % (Auto) [place] % (Auto) Eos % (Auto) Baso % (Auto) Absolute Neuts (auto) Absolute Lymphs (auto) Total Counted PT INR Sodium Potassium Chloride Carbon Dioxide Anion Gap BUN Creatinine Estim Creat Clear Calc Est GFR (MDRD) Af Amer Est GFR (MDRD) Non-Af BUN/Creatinine Ratio Glucose Hemoglobin A1c Calcium Troponin I < 0.015 Triglycerides Cholesterol LDL Cholesterol VLDL Cholesterol HDL Cholesterol POC Glucose 02/12/19 02/12/19 02/12/19 11:06 06:46 01:31 POC Glucose 232 H 246 H 290 H Medical Necessity - Tobacco Use Smoking Status: Current every day smoker Assessment/Plan All Active Problems Mental status alteration (Acute) Angina pectoris (Acute) Chest pain (Acute) Chest pain (Acute) Arterial complication of procedure (Acute) Acute chest pain (Acute)
--- NOTE | 2019-02-12 14:00 | PCM.DC ---
You will use the following diet at home:: Cardiac Discharge Activity: Return to Normal Activity Call your doctor if you observe: Shortness of breath, Dizziness, Fainting spells, Chest pain Allergies/Adverse Reactions: Allergies No Known Allergies Allergy (Verified 04/29/18 18:38) Medications to take at Discharge Clopidogrel Bisulfate [Plavix] 75 mg PO DAILY 06/11/16 Bupropion HCl [Bupropion Xl] 300 mg PO DAILY 11/09/16 Metformin HCl [Metformin HCl ER] 500 mg PO BID #0 11/08/17 Carvedilol 6.25 mg PO BID 01/09/18 Escitalopram Oxalate [Lexapro] 20 mg PO DAILY 01/09/18 Ranitidine [Zantac] 150 mg PO QHS 01/09/18 busPIRone [Buspar] 5 mg PO TID 01/09/18 Loratadine 10 mg PO DAILY 02/28/18 Insulin Glargine,Hum.rec.anlog [Basaglar Kwikpen U-100] 22 unit SQ QHS 02/11/19 Atorvastatin Calcium [Lipitor] 80 mg PO QHS #30 tab 02/12/19 The following prescriptions were given: Atorvastatin Calcium [Lipitor] 80 mg PO QHS #30 tab Transmission Status: Pending to [facility]/pharmacy #[id number] Primary Care Physician: Trang He MD [Primary Care Provider] - Please follow up with your Primary Care Physician in: Call for appt Test Results: Test results from this visit will be discussed in further detail at your follow-up appointment, if applicable. Please Follow Up With: Yony Sigala MD When: As scheduled, 02/15/2019 Proposed Discharge Date: 02/12/19
--- NOTE | 2019-02-12 14:03 | PCM.DC.SUM ---
<Essence Salvador - Last Filed: 02/12/19 14:12> Discharge Date and Diagnosis Date of Admission: 02/11/19 Date of Discharge: 02/12/19 - Primary Discharge Diagnosis 1. Chest pain with history of CAD with multiple stents-ACS ruled out, musculoskeletal nature 2. Type 2 diabetes mellitus 3. Hyperlipidemia with severely elevated triglycerides 4. Tobacco dependence 5. Depression/anxiety 6. GERD - Secondary Discharge Diagnosis Chronic Problems Obesity (BMI 30.0-34.9) (Chronic) Myocardial infarct, old (Chronic) S/P PTCA (percutaneous transluminal coronary angioplasty) (Chronic) S/P PTCA (percutaneous transluminal coronary angioplasty) (Chronic) CAD (coronary artery disease) (Chronic) Tobacco abuse (Chronic) CAD (coronary artery disease) (Chronic) Diabetes (Chronic) HLD (hyperlipidemia) (Chronic) HTN (hypertension) (Chronic) Hospital Course and Treatment Imaging Results: Diagnostic Data Chest X-Ray 02/11/19 22:58 IMPRESSION: No acute cardiopulmonary process. Electronically Signed: Leatha Chiang MD at 23:25 EDT Tel , Service support , Dr. Murillo- Cardiology Operations: None Procedures: None Summary of Care Provided: The patient is a 53 year old M admitted 02/11/19 due to chest pain. 1. Chest pain with history of CAD with multiple stents-troponin negative. EKG without ST-T changes. Cardiology consulted. Patient has follow-up with Dr. Sigala this week, 02/15/2019. Dr. Murillo, Cardiology feels this is musculoskeletal in nature and no further cardiac work-up is indicated at this time. Patient had cardiac catheterization in October 2017 which showed no significant disease. Upon repeat assessment, patient reports he feels pain is coming from his neck and right shoulder, requesting narcotic medication at discharge. Instructed patient to use Tylenol, ibuprofen and call primary care provider tomorrow for further work-up regarding musculoskeletal pain. Follow-up with cardiology as scheduled. Continue Plavix, carvedilol. Additionally added on high-dose statin. 2. Type 2 diabetes mellitus-hemoglobin A1c 9.4%. Continue home long-acting insulin regimen and metformin regimen. This may need increased based on hemoglobin A1c, recommend further follow-up with PCP. 3. Hyperlipidemia with severely elevated triglycerides-does not appear to be on statin at home. Initiate high-dose statin. Repeat FLP by primary care provider/cardiology. 4. Tobacco dependence-encourage smoking cessation. 5. Depression/anxiety-continue home BuSpar, Lexapro, bupropion regimen. 6. GERD-continue home ranitidine regimen. General: Alert, Oriented x3, Cooperative HEENT: Atraumatic, PERRLA, EOMI, Normocephalic Neck: Supple, No JVD, Negative Carotid Bruits Lungs: Clear to auscultation, Normal air movement Cardiovascular: Regular rate, Regular Rhythm, Normal S1, Normal S2, No murmurs Abdomen: Bowel Sounds Present, Soft, Non Tender, Non-Distended Extremities: No clubbing, No cyanosis, No edema, Capillary Refill Less than 3 Seconds Skin: No rashes, No breakdown Musculoskeletal: No Tenderness to Palpation of Joints or Extremities Neurological: Cranial nerves II-XII grossly intact, Neuro grossly intact Psych/Mental Status: Normal Affect, Appropriate Patient seen and examined prior to discharge. Physical assessment as noted above. Patient is stable for discharge with follow up recommendations as noted above. This patient was seen by LUCY Guzman under the supervision of Dr. Olvera. - Physical Exam Vital Signs Temp Pulse Resp BP Pulse Ox 97.7 F L 76 16 155/88 H 98 02/12/19 10:17 02/12/19 10:32 02/12/19 10:17 02/12/19 10:17 02/12/19 10:17 Oxygen Flow Rate (L/min) 2 Oxygen Delivery Method Nasal Cannula Weight: 243 lb 6.245 oz Body Mass Index (BMI) 33.0 Finger Stick Blood Glucose 365 Intake and Output for Last 24 Hours 02/10/19 02/11/19 02/12/19 23:59 23:59 23:59 Intake Total 240 / 240 Balance 240 / 240 Laboratory Tests Past 24 Hrs 02/11/19 02/11/19 02/11/19 22:25 22:45 22:45 WBC 6.8 RBC 4.60 Hgb 14.5 Hct 40.8 MCV 88.7 MCH 31.5 MCHC 35.5 RDW 13.2 RDW Differential 42.9 Plt Count 168 MPV 11.2 Immature Gran % (Auto) 0.100 Neut % (Auto) 46.4 L Lymph % (Auto) 44.2 H [place] % (Auto) 7.3 Eos % (Auto) 1.6 Baso % (Auto) 0.4 Absolute Neuts (auto) 3.2 Absolute Lymphs (auto) 3.02 Total Counted Not Reportable PT INR Sodium 136 Potassium 3.6 Chloride 101 Carbon Dioxide 31.0 Anion Gap 4 L BUN 18 Creatinine 1.06 Estim Creat Clear Calc 88.46 Est GFR (MDRD) Af Amer 94 Est GFR (MDRD) Non-Af 78 BUN/Creatinine Ratio 17.0 Glucose 324 H Hemoglobin A1c 9.4 H Calcium 9.0 Troponin I < 0.015 Triglycerides Cholesterol LDL Cholesterol VLDL Cholesterol HDL Cholesterol 02/12/19 02/12/19 02/12/19 01:38 04:45 04:45 WBC RBC Hgb Hct MCV MCH MCHC RDW RDW Differential Plt Count MPV Immature Gran % (Auto) Neut % (Auto) Lymph % (Auto) [place] % (Auto) Eos % (Auto) Baso % (Auto) Absolute Neuts (auto) Absolute Lymphs (auto) Total Counted PT 12.2 INR 0.9 Sodium Potassium Chloride Carbon Dioxide Anion Gap BUN Creatinine Estim Creat Clear Calc Est GFR (MDRD) Af Amer Est GFR (MDRD) Non-Af BUN/Creatinine Ratio Glucose Hemoglobin A1c Calcium Troponin I < 0.015 Triglycerides 1101 H Cholesterol 199 LDL Cholesterol TNP VLDL Cholesterol TNP HDL Cholesterol 23 L 02/12/19 04:45 WBC RBC Hgb Hct MCV MCH MCHC RDW RDW Differential Plt Count MPV Immature Gran % (Auto) Neut % (Auto) Lymph % (Auto) [place] % (Auto) Eos % (Auto) Baso % (Auto) Absolute Neuts (auto) Absolute Lymphs (auto) Total Counted PT INR Sodium Potassium Chloride Carbon Dioxide Anion Gap BUN Creatinine Estim Creat Clear Calc Est GFR (MDRD) Af Amer Est GFR (MDRD) Non-Af BUN/Creatinine Ratio Glucose Hemoglobin A1c Calcium Troponin I < 0.015 Triglycerides Cholesterol LDL Cholesterol VLDL Cholesterol HDL Cholesterol POC Glucose 02/12/19 02/12/19 02/12/19 11:06 06:46 01:31 POC Glucose 232 H 246 H 290 H Discharge Diet: Low fat/ Low Cholesterol Discharge Activity: Return to Normal Activity Call your doctor if you observe: Shortness of breath, Dizziness, Fainting spells, Chest pain Home Medications: Medications to take at Discharge Clopidogrel Bisulfate [Plavix] 75 mg PO DAILY 06/11/16 Bupropion HCl [Bupropion Xl] 300 mg PO DAILY 11/09/16 Metformin HCl [Metformin HCl ER] 500 mg PO BID #0 11/08/17 Carvedilol 6.25 mg PO BID 01/09/18 Escitalopram Oxalate [Lexapro] 20 mg PO DAILY 01/09/18 Ranitidine [Zantac] 150 mg PO QHS 01/09/18 busPIRone [Buspar] 5 mg PO TID 01/09/18 Loratadine 10 mg PO DAILY 02/28/18 Insulin Glargine,Hum.rec.anlog [Basaglar Kwikpen U-100] 22 unit SQ QHS 02/11/19 Atorvastatin Calcium [Lipitor] 80 mg PO QHS #30 tab 02/12/19 Following Prescrptions Were Given to Patient: Atorvastatin Calcium [Lipitor] 80 mg PO QHS #30 tab Transmission Status: Received by [facility]/pharmacy #[id number] Primary Care Physician: Trang He MD [Primary Care Provider] - Please follow up with your Primary Care Physician in: Call for appt Please Follow Up With: Yony Sigala MD When: As scheduled, 02/15/2019 Disposition: Home Minutes spent on discharge:: 35 Patient Condition:: Stable Medical Necessity - Tobacco Use Smoking Status: Current every day smoker Meaningful Use Info Meaningful Use Diagnoses (Choose all that apply): None applicable <Danelle Olvera - Last Filed: 02/12/19 15:11> Discharge Date and Diagnosis - Secondary Discharge Diagnosis Chronic Problems Obesity (BMI 30.0-34.9) (Chronic) Myocardial infarct, old (Chronic) S/P PTCA (percutaneous transluminal coronary angioplasty) (Chronic) S/P PTCA (percutaneous transluminal coronary angioplasty) (Chronic) CAD (coronary artery disease) (Chronic) Tobacco abuse (Chronic) CAD (coronary artery disease) (Chronic) Diabetes (Chronic) HLD (hyperlipidemia) (Chronic) HTN (hypertension) (Chronic) Hospital Course and Treatment Procedures: EKG Summary of Care Provided: Hospitalist note: Discharge summary above reviewed and I concur with the above discharge plan. Patient was admitted for chest pain for evaluation. He had a history of CAD status post placement of multiple stents. EKG revealed no evidence of acute ischemic changes. His troponin was negative x3. Chest x-ray showed no acute findings. Routine blood work was unremarkable. Lipid profile revealed triglyceride of 1101, total cholesterol of 199, HDL cholesterol of 23. Cardiology consulted and stated that this pain is probably musculoskeletal pain, no indication to do any further cardiac work-up and patient can be discharged. ACS ruled out. Patient discharged home in a stable medical condition, started on Lipitor, remained on his previous home medications without any changes including Plavix, plan to follow-up with cardiology this coming Friday February 15, 2019, recommended follow-up with PCP as scheduled. - Physical Exam General: Alert, Oriented x3, Cooperative, No apparent distress. HEENT: Atraumatic, PERRLA, EOMI. Neck: Supple, No JVD, Negative Carotid Bruits, Trachea Midline, Thyroid Normal. Lungs: Clear to auscultation, Normal air movement, No rhonchi, No wheeze, No rales. Cardiovascular: Regular rate, Regular Rhythm, Normal S1, Normal S2, PMI Normal. Abdomen: Bowel Sounds Present, Soft, Non Tender, Non-Distended, No Hepato-splenomegaly. Extremities: No clubbing, No cyanosis, No edema Skin: No rashes, No breakdown Neurological: Neuro grossly intact This note was generated with [employer] dictation software. It may contain incorrect words, spelling, and punctuation that were not noted in checking the note before signing. - Physical Exam Vital Signs Temp Pulse Resp BP Pulse Ox 98.0 F 79 16 150/95 H 94 02/12/19 14:02 02/12/19 14:02 02/12/19 14:02 02/12/19 14:02 02/12/19 14:02 Oxygen Flow Rate (L/min) 2 Oxygen Delivery Method Room Air Weight: 243 lb 6.245 oz Body Mass Index (BMI) 33.0 Finger Stick Blood Glucose 365 Intake and Output for Last 24 Hours 02/10/19 02/11/19 02/12/19 23:59 23:59 23:59 Intake Total 240 / 240 Balance 240 / 240 Laboratory Tests Past 24 Hrs 02/11/19 02/11/19 02/11/19 22:25 22:45 22:45 WBC 6.8 RBC 4.60 Hgb 14.5 Hct 40.8 MCV 88.7 MCH 31.5 MCHC 35.5 RDW 13.2 RDW Differential 42.9 Plt Count 168 MPV 11.2 Immature Gran % (Auto) 0.100 Neut % (Auto) 46.4 L Lymph % (Auto) 44.2 H [place] % (Auto) 7.3 Eos % (Auto) 1.6 Baso % (Auto) 0.4 Absolute Neuts (auto) 3.2 Absolute Lymphs (auto) 3.02 Total Counted Not Reportable PT INR Sodium 136 Potassium 3.6 Chloride 101 Carbon Dioxide 31.0 Anion Gap 4 L BUN 18 Creatinine 1.06 Estim Creat Clear Calc 88.46 Est GFR (MDRD) Af Amer 94 Est GFR (MDRD) Non-Af 78 BUN/Creatinine Ratio 17.0 Glucose 324 H Hemoglobin A1c 9.4 H Calcium 9.0 Troponin I < 0.015 Triglycerides Cholesterol LDL Cholesterol VLDL Cholesterol HDL Cholesterol 02/12/19 02/12/19 02/12/19 01:38 04:45 04:45 WBC RBC Hgb Hct MCV MCH MCHC RDW RDW Differential Plt Count MPV Immature Gran % (Auto) Neut % (Auto) Lymph % (Auto) [place] % (Auto) Eos % (Auto) Baso % (Auto) Absolute Neuts (auto) Absolute Lymphs (auto) Total Counted PT 12.2 INR 0.9 Sodium Potassium Chloride Carbon Dioxide Anion Gap BUN Creatinine Estim Creat Clear Calc Est GFR (MDRD) Af Amer Est GFR (MDRD) Non-Af BUN/Creatinine Ratio Glucose Hemoglobin A1c Calcium Troponin I < 0.015 Triglycerides 1101 H Cholesterol 199 LDL Cholesterol TNP VLDL Cholesterol TNP HDL Cholesterol 23 L 02/12/19 04:45 WBC RBC Hgb Hct MCV MCH MCHC RDW RDW Differential Plt Count MPV Immature Gran % (Auto) Neut % (Auto) Lymph % (Auto) [place] % (Auto) Eos % (Auto) Baso % (Auto) Absolute Neuts (auto) Absolute Lymphs (auto) Total Counted PT INR Sodium Potassium Chloride Carbon Dioxide Anion Gap BUN Creatinine Estim Creat Clear Calc Est GFR (MDRD) Af Amer Est GFR (MDRD) Non-Af BUN/Creatinine Ratio Glucose Hemoglobin A1c Calcium Troponin I < 0.015 Triglycerides Cholesterol LDL Cholesterol VLDL Cholesterol HDL Cholesterol POC Glucose 02/12/19 02/12/19 02/12/19 11:06 06:46 01:31 POC Glucose 232 H 246 H 290 H Disposition: Home Minutes spent on discharge:: 24 Patient Condition:: Stable Meaningful Use Info Meaningful Use Diagnoses (Choose all that apply): None applicable Code Visit OBSV E&M: 64785 Observation care discharge
== END 2019-02-12 14:02 | disposition home or self-care (01) ==
LOC: ED 23:01 → PCU 02-12 00:19
PROVIDERS: Nurse Practitioner Family; Admitting Provider Hospitalist; Emergency Provider Emergency Medicine; Family Provider Internal Medicine; PCP Internal Medicine; Visit Provider Hospitalist
DX: R07.89 Other chest pain (principal); R42 Dizziness and giddiness; R55 Syncope and collapse; R06.02 Shortness of breath; I25.10 Atherosclerotic heart disease of native coronary artery without angina pectoris; F41.9 Anxiety disorder, unspecified; F32.9 Major depressive disorder, single episode, unspecified; E66.9 Obesity, unspecified; I25.2 Old myocardial infarction; E78.5 Hyperlipidemia, unspecified; E11.9 Type 2 diabetes mellitus without complications; I10 Essential (primary) hypertension; F17.210 Nicotine dependence, cigarettes, uncomplicated; Z79.899 Other long term (current) drug therapy; Z79.02 Long term (current) use of antithrombotics/antiplatelets; Z79.84 Long term (current) use of oral hypoglycemic drugs; Z95.5 Presence of coronary angioplasty implant and graft; Z86.73 Personal history of transient ischemic attack (TIA), and cerebral infarction without residual deficits; Z68.33 Body mass index [BMI] 33.0-33.9, adult; Z71.3 Dietary counseling and surveillance
CPT/HCPCS: 36415; 71046; 80048; 80061; 82962; 83036; 84484; 85025; 85610; 93005; 96372; 96374; 96376; 97802; 99218; 99285; 99406; J7030; A4216; G0378

== ENCOUNTER 2019-03-14 18:23 | Emergency (ER) | payer MEDICARE, SELFPAY ==
[2019-02-12 00:38] VITALS: BMI 33.0
[2019-03-14 18:23] VITALS: BP 153/95; PULSE 101; RESP 18; TEMP 36.8; O2SAT 96; BMI 31.6
[2019-03-14] MEDS: HYDROcodone Bitartrate/Apap 5/325 Tablet PO (19:03)
[2019-03-14] MEDS: Orphenadrine 60 MG/2 ML Ampul IM (19:03)
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
[2019-03-14] MEDS: Ketorolac 60 MG/2 ML Vial IM (19:04)
--- NOTE | 2019-03-14 19:05 | RAD_ITS ---
STUDY: X-RAY - LUMBAR SPINE REASON FOR EXAM: Male, 53 years old. Fall TECHNIQUE: 3 view(s) of the lumbar spine were obtained. COMPARISON: None FINDINGS: There is no evidence of fracture or dislocation in the lumbar spine. The vertebral body heights are well-maintained. There are mild degenerative changes. There are no significant degenerative changes. RAD/Lumbar Spine 2 or 3 Views IMPRESSION: No fracture or dislocation in the lumbar spine. Mild degenerative change. Electronically Signed: Bladimir Palencia, at 19:22 EDT Tel , Service support ,
[2019-03-14] MEDS: Morphine 4 MG/ML Syringe IM (20:03)
[2019-03-14 20:31] VITALS: BP 128/62; PULSE 74; RESP 16; O2SAT 98
== END 2019-03-14 20:32 | disposition home or self-care (01) ==
PROVIDERS: Emergency Provider Emergency Medicine; Family Provider Internal Medicine; PCP Internal Medicine
DX: S39.012A Strain of muscle, fascia and tendon of lower back, initial encounter (principal); X50.3XXA Overexertion from repetitive movements, initial encounter; Y93.H9 Activity, other involving exterior property and land maintenance, building and construction; Y92.017 Garden or yard in single-family (private) house as the place of occurrence of the external cause; I25.10 Atherosclerotic heart disease of native coronary artery without angina pectoris; I25.2 Old myocardial infarction; I10 Essential (primary) hypertension; E78.5 Hyperlipidemia, unspecified; F17.200 Nicotine dependence, unspecified, uncomplicated; Z95.5 Presence of coronary angioplasty implant and graft; Z79.82 Long term (current) use of aspirin; Z79.02 Long term (current) use of antithrombotics/antiplatelets; Z79.899 Other long term (current) drug therapy
CPT/HCPCS: 72100; 96372; 99282

== ENCOUNTER 2019-03-20 22:28 | Inpatient (IN) | payer MEDICARE, SELFPAY ==
[2019-03-20] VITALS (7 sets, daily range): BP systolic 150–180; BP diastolic 89–110; PULSE 80–92; RESP 11–18; TEMP 36.3–37; O2SAT 95–97; BMI 34.3
--- NOTE | 2019-03-20 22:38 | CT_ITS ---
STUDY: CTA HEAD AND NECK WITH CONTRAST REASON FOR EXAM: Male, 53 years old. Possible stroke RADIATION DOSAGE (If Supplied By Facility): CTDIvol = ( 22.72 ) mGy, DLP = ( 871.71 ) mGycm TECHNIQUE: CT angiography was performed with a multi-detector CT scanner. Data acquisition was obtained from the skull base through the vertex following intravenous administration of 100 IV Isovue 370. MIP images were reconstructed from the axial data set. Post-processing of the angiographic images was performed, with multiplanar reformation and 3D reconstruction. Individualized dose optimization techniques were used for this CT. COMPARISON: CT head same day and CT had performed 01/08/2018 FINDINGS: Normal bilateral petrous carotid arteries. There are mild atherosclerotic plaques within the cavernous and supraclinoid portion of the internal carotid arteries. Normal right A1 segments of the anterior cerebral artery. Normal left A1 segments of the anterior cerebral artery. Normal intact anterior communicating artery (ACOM). Normal bilateral A2 segments of the anterior cerebral arteries. Normal right M1 and M2 segments of the middle cerebral arteries, with a normal M1 bifurcation. Normal left M1 and M2 segments of the middle cerebral arteries, with a normal M1 bifurcation. Normal right posterior communicating artery (PCOM). Normal left posterior communicating artery (PCOM). Normal bilateral vertebral arteries. Normal basilar artery with a normal basilar bifurcation. The visualized bilateral superior cerebellar (SCA) arteries are normal. Normal bilateral P1, P2 and visualized P3 segments of the posterior cerebral arteries. There is no demonstrated aneurysm of the [place]. There is no demonstrated abnormality of the visualized brain. AORTIC ARCH: Normal visualized aortic arch. Normal origins of the brachiocephalic, left common carotid, and left subclavian arteries. RIGHT CAROTID ARTERIES: Normal right common carotid artery (CCA). Normal right common carotid bulb. Normal origin of the right internal carotid (ICA) artery without a hemodynamically significant stenosis. Normal visualized cervical portion of the right internal carotid artery. Normal origin of the right external carotid artery (ECA). LEFT CAROTID ARTERIES: Normal left common carotid artery (CCA). Normal left common carotid bulb. Normal origin of the left internal carotid (ICA) artery without a hemodynamically significant stenosis. Normal visualized cervical portion of the left internal carotid artery. Normal origin of the left external carotid artery (ECA). VERTEBRAL ARTERIES: Normal bilateral vertebral arteries. There is significant multilevel spondylosis cervical spine multilevel disc space narrowing and disc osteophyte complexes central canal and foraminal stenoses. There is a small subcentimeter anterior paratracheal lymph node. There is encephalomalacia within the right frontal lobe. There are stable deep white matter periventricular hypodensities. There is stable right mastoid effusion. CT/CTA Head AND Neck W/ Contrast IMPRESSION: Normal CTA neck with contrast. No significant intracerebral stenoses, mild atherosclerotic plaques within the cavernous and internal carotid arteries Significant multilevel spondylosis cervical spine Stable encephalomalacia within the right frontal lobe, stable old small vessel deep white matter ischemic changes Small subcentimeter anterior paratracheal lymph node likely benign Stable right mastoid effusion Electronically Signed: Darrell Stanley, at 23:37 EDT Tel , Service support ,
--- NOTE | 2019-03-20 22:38 | CT_ITS ---
STUDY: CT BRAIN WITHOUT CONTRAST REASON FOR EXAM: Male, 53 years old. Stroke RADIATION DOSAGE (If Supplied By Facility): CTDIvol = ( 44.99 ) mGy, DLP = ( 846.73 ) mGycm TECHNIQUE: Transaxial CT imaging of the brain was performed without administration of intravenous contrast material. Individualized dose optimization techniques were used for this CT. COMPARISON: CT. 01/08/2018 and MRI head 01/09/2018 FINDINGS: Normal soft tissue structures. Normal calvarium. There is encephalomalacia within the right frontal lobe unchanged.. There are stable bilateral mild deep white matter periventricular hypodensities. Normal brainstem. Normal cerebellum. There is no intracranial hemorrhage. There is mild opacification right mastoid air cells. CT/Brain/Head without Contrast IMPRESSION: Stable encephalomalacia within the right frontal lobe, it there is clinical concern for acute infarct MRI brain follow-up could be performed Stable old deep white matter ischemia Mild right chronic mastoid effusion The results were called to and discussed with Physician: Perico Mueller at approximately 11:02 PM 03/20/2019. N.B. : The above information has been verbally conveyed by Darrell Stanley to Perico Mueller MD, on 03/20/2019 23:07:21 (ET). Electronically Signed: Darrell Stanley, at 23:09 EDT Tel , Service support ,
--- NOTE | 2019-03-20 22:41 | EKG12_ITS ---
Test Reason : CVA Blood Pressure : / mmHG Vent. Rate : 084 BPM Atrial Rate : 084 BPM P-R Int : 180 ms QRS Dur : 098 ms QT Int : 378 ms P-R-T Axes : 059 116 084 degrees QTc Int : 446 ms Normal sinus rhythm Incomplete right bundle branch block Abnormal ECG Confirmed by IVETTE GIBSON, RON ([id number]), editor managing director NADINE FOWLER ([id number]) on 03/22/2019 10:35:46 AM Referred By: DR SMITH Confirmed By:RON STEELE MD
--- NOTE | 2019-03-20 22:41 | RAD_ITS ---
STUDY: X-RAY CHEST REASON FOR EXAM: Male, 53 years old. Cough. Stroke alert. TECHNIQUE: AP portable chest. COMPARISON: February 11, 2019 and February 28, 2018. FINDINGS: The lungs are clear and expanded. There is no demonstrated pleural abnormality. Normal size heart. Normal mediastinum and sang. Normal visualized pulmonary arteries. Normal visualized aortic arch and descending thoracic aorta. Normal visualized thoracic spine. Normal visualized ribs, clavicles, and shoulders. There is no demonstrated abnormality of the visualized soft tissue structures of the upper abdomen. RAD/Chest 1 View IMPRESSION: Stable chest, no acute cardiopulmonary disease. Electronically Signed: Jermaine Ho MD at 23:57 EDT , Service support ,
[2019-03-20 23:08] LABS: Absolute Lymphocyte Count 3.14 X10^3/uL (0.83-4.51); Absolute Neutrophil Count 3.3 X10^3/uL (2.0-7.7); Basophil# 0.03 X10^3/uL; Basophil% 0.4 % (0-1); Eosinophil# 0.14 X10^3/uL; Eosinophils% 1.9 % (0-5); Hematocrit 42.8 % (40-54); Hemoglobin 15.3 g/dL (13.0-16.5); Lymphocyte # 3.14 X10^3/ul (4.0); Lymphocyte % 43.6 % (19-41); Mean Corp Hgb Conc 35.7 g/dL (32-36); Mean Corpuscular Hgb 31.4 pg (27.0-32.0); Mean Corpuscular Volume 87.7 fL (80-94); Mean Platelet Vol. 11.2 fl (6.2-12.0); Monocyte# 0.56 X10^3/uL; Monocyte% 7.8 % (0-10); NRBC Flagged by Analyzer 0 % (0-5); Neutrophil # 3.32 X10^3/uL (2.7-7.7); Neutrophil % 46.2 % (47-70); Platelet Count 155 K/mm3 (150-450); RBC Distribution Width CV 12.7 % (11.6-14.6); RBC Distribution Width SD 40.9 fl (35.1-43.9); Red Blood Count 4.88 M/mm3 (4.6-6.2); White Blood Count 7.2 K/mm3 (4.4-11.0)
[2019-03-20 23:11] LABS: Prothrombin Time (Protime)PT. 12.6 SECONDS (11.7-14.9)
[2019-03-20 23:12] LABS: Partial Thromboplast Time 28.2 Seconds (24.1-36.2)
[2019-03-20 23:28] LABS: Anion Gap 9 (5-15); BUN 12 mg/dL (7-18); BUN/Creat Ratio 15.5 RATIO (10-20); Calcium,Total 8.9 mg/dL (8.5-10.1); Chloride 105 mmol/L (98-107); Creatinine, Serum 0.77 mg/dL (0.70-1.30); EST Glomerular Filtration Rate 112 mL/min (>60); Est Glom Filt Rate - Afr Amer 135 mL/min (>60); Estimated Creatinine Clearance 114.56 ml/min; Glucose 228 mg/dL (74-106); Potassium 3.5 mmol/L (3.5-5.1); Sodium Level 141 mmol/L (136-145)
--- NOTE | 2019-03-20 23:35 | ED.RN ---
STROKE TEAM CHARTING COMPLETED PLEASE SEE TPA CHARTING AT THIS TIME
[2019-03-21] VITALS (39 sets, daily range): BP systolic 133–167; BP diastolic 79–108; PULSE 66–90; RESP 9–25; TEMP 36.3–37.3; O2SAT 95–100; BMI 32.8
--- NOTE | 2019-03-21 00:05 | ED.VISSUMM ---
- ER Visit Summary Date of Service: 03/21/19 Chief Complaint: Confusion, weakness History of Present Illness: The patient is a 53 M who presents with multiple complaints. He does have a history of diabetes, hypertension, hyperlipidemia, coronary disease, prior stroke. He was complaining of chest pain all day. EMS reports that he was in an argument with family about selling the house. He then had a syncopal episode and transiently became unresponsive. He was able to walk to the EMS cot. He then began to complain of weakness. EMS reports bilateral weakness and right facial droop, slurred speech and confusion. Physical Examination: Initial blood pressure 180/110 vitals otherwise unremarkable Moist mucous membranes Heart regular rate and rhythm Lungs clear Abdomen soft nontender Patient is oriented to person and place but not month. His initial NIH for me is 8. He missed one on level of consciousness, questions as he answered to the month was January, he has drift of both arms and legs. He complains of decreased sensation in the right arm right leg and left face. Test Results: EKG shows normal sinus rhythm at a rate of 84 with an incomplete right bundle branch block. CT the head shows encephalomalacia of the right frontal lobe, white matter chronic ischemic changes. Normal CTA of head and neck. Chest x-ray shows no acute process on my review. Laboratory studies normal including CBC BMP coagulation studies and troponin. Emergency Department Course and Treatment: Patient's presentation is atypical and that he complains of bilateral weakness. Patient was evaluated by neurology through the telemetry stroke system. On their exam they are concerned that his right-sided weakness and ataxia seem worse. They do feel he is appropriate for TPA. Patient does not meet any exclusion criteria. Neurology discussed the risks and benefits including risks of leaving, intracranial hemorrhage. Patient consents. Patient will be admitted to the ICU. He was discussed with both the hospitalist and billet grinder here as well. Treatment Plan: [] Disposition: Admit Impression: Stroke This note was generated with [employer] dictation software. It may contain incorrect words, spelling, and punctuation that were not noted in review of the chart prior to signing ED Disposition - Plan for ED Patient: Referrals: Trang He MD [Primary Care Provider] -
--- NOTE | 2019-03-21 00:52 | HP.PCM_ITS ---
Problem List (1) History of stroke Status: Chronic (2) Acute embolic stroke Status: Acute (3) Old myocardial infarction Status: Chronic (4) History of coronary artery stent placement Status: Resolved Comment: PCI-BREANNE-OM2; PCI-BREANNE x 2 Distal and Prox RCA; PCI- Cutting Balloon Angioplasty -ISR OM2 09/2016 (5) Nicotine dependence Status: Chronic (6) Atherosclerosis of coronary artery of [place] heart without angina pectoris Status: Chronic (7) Essential (primary) hypertension Status: Chronic (8) HLD (hyperlipidemia) Status: Chronic Qualifiers: History of Present Illness Date of Admission: 03/21/19 Chief Complaint: stroke The patient is a 53 year old male with a significant past medical history of hypertension hyperlipidemia coronary artery disease and previous stroke presents the emergency room via ambulance after experiencing a syncopal episode at home. Apparently there was an argument with him and his spouse regarding selling the house when he suddenly became lightheaded and passed out and they called the squad. While in route in the squad it was noted that he had a right facial droop and had weakness in bilateral lower extremities. Stroke team was called and patient was evaluated via telemetry stroke neurologist and decision was made to initiate thrombolytic therapy. Patient currently denies chest pain or shortness of breath he does have some hip pain and muscle skeletal pain for which she is requesting pain medication. Initial NIH score was 8 and the patient had drifting of both lower extremities after initial bolus of thrombolytic therapy in my evaluation the patient was now able to move his left leg and hold it steady and no longer had a right facial droop and had full ext raocular muscles intact. The patient does complain of some blurry vision but otherwise states he starting to feel better. He will be admitted to the ICU for management of his strokelike symptoms and management of his thrombolytic therapy. Neurology consult will be obtained. Past Medical History Past Medical History (Chronic Problems): Chronic Problems (Last Reviewed 02/15/19 @ 08:50 by Debra Brock) History of stroke (Chronic) Old myocardial infarction (Chronic) Nicotine dependence (Chronic) Atherosclerosis of coronary artery of [place] heart without angina pectoris (Chronic) Essential (primary) hypertension (Chronic) HLD (hyperlipidemia) (Chronic) Medical History: Medical History (Last Reviewed 02/15/19 @ 08:50 by Debra Brock) Old myocardial infarction (Chronic) I25.2 Nicotine dependence (Chronic) F17.200 Atherosclerosis of coronary artery of [place] heart without angina pectoris ( Chronic) I25.10 Essential (primary) hypertension (Chronic) I10 HLD (hyperlipidemia) (Chronic) E78.5 CVA (cerebral vascular accident) I63.9 Diabetic retinopathy E11.319 GERD (gastroesophageal reflux disease) K21.9 Obesity (BMI 30.0-34.9) E66.9 Type 2 diabetes mellitus E11.9 Mental status alteration R41.82 Allergies No Known Allergies Allergy (Verified 03/14/19 18:25) Home Medications: Ambulatory Orders Medication Instructions Recorded Clopidogrel Bisulfate [Plavix] 75 mg PO DAILY 06/11/16 Bupropion HCl [Bupropion Xl] 300 mg PO DAILY 11/09/16 Metformin HCl [Metformin HCl ER] 500 mg PO BID #0 11/08/17 Carvedilol 6.25 mg PO BID 01/09/18 Ranitidine [Zantac] 150 mg PO QHS 01/09/18 busPIRone [Buspar] 5 mg PO TID 01/09/18 Loratadine 20 mg PO DAILY 02/28/18 Insulin Glargine,Hum.rec.anlog 22 unit SQ QHS 02/11/19 [Tammi Olson U-100] Surgical History: Surgical History (Last Reviewed 02/15/19 @ 08:50 by Debra Brock) History of coronary artery stent placement (Resolved) Onset Date: 09/2016 Z95.5 PCI-BREANNE-OM2; PCI-BREANNE x 2 Distal and Prox RCA; PCI-Cutting Balloon Angioplasty -ISR OM2 09/2016 History of elbow surgery Z98.890 History of left heart catheterization Onset Date: 11/08/17 Z98.890 Surgical History: angioplasty - coronary stent, - - LUE surgery, PCI, T+A. Psychiatric History: No pertinent psych hx Smoking Status: Current every day smoker - *Family History Sibling Family History: Family History (Last Reviewed 02/15/19 @ 08:50 by Debra Brock) Other Diabetes Heart disease Hypertension Myocardial infarction History Items: Heart Disease - Brother w/ CAD/GA in his 50s, fatal. Maternal Family History: Family History (Last Reviewed 02/15/19 @ 08:50 by Debra Brock) Other Diabetes Heart disease Hypertension Myocardial infarction History Items: Diabetes, - Paternal Family History: Family History (Last Reviewed 02/15/19 @ 08:50 by Debra Brock) Other Diabetes Heart disease Hypertension Myocardial infarction History Items: Diabetes, High Cholesterol, Heart Disease - CAD s/p GA in his 50s., Hypertension, - - diabetes, heart disease Review of Systems Constitutional: Reports: Malaise, Weakness, Fatigue. Denies: Chills, Fever, Weight Change HEENT: Denies: Head Aches, Sinus Congestion, Sinus Drainage Cardiovascular: Denies: Chest Pain, Palpitations Respiratory: Denies: Cough, Shortness of breath at rest, Sputum production Gastrointestinal: Denies: Abdominal Pain, Nausea, Vomiting Genitourinary: Denies: Dysuria Musculoskeletal: Denies: Joint Pain, Joint Tenderness Skin: Denies: Rash, Wounds Neurological: Reports: Blurred vision, Focal weakness, Incoordination. Denies: Numbness, Tingling Psychiatric: Denies: Anxiety, Depression, Homicidal Ideations, Suicidal Ideations Hematologic/ Lymphatic: Denies: Easy Bruising, Easy Bleeding VTE Information - Inpt Only VTE Present on Admission: No VTE Mechan Device Prophylaxis: SCD's, None VTE Pharm Prophylaxis ordered?: No Patient Problems: Active and Suspected Problems (Last Reviewed 02/15/19 @ 08:50 by Debra Brock) Acute embolic stroke (Acute) - Physical Exam General: Alert, Oriented x3, Cooperative HEENT: Atraumatic, Normocephalic Neck: Supple, Negative Carotid Bruits Lungs: Clear to auscultation, Normal air movement, No rhonchi, No wheeze, No rales Cardiovascular: Regular rate, Regular Rhythm, Normal S1, Normal S2, No murmurs Abdomen: Bowel Sounds Present, Soft, Non Tender Extremities: No edema Skin: No rashes Musculoskeletal: No Tenderness to Palpation of Joints or Extremities Neurological: Cranial nerves II-XII grossly intact, - - right lower extremy drift present otherwise motor fcn intact Psych/Mental Status: Normal Affect, Appropriate Vital Signs Temp Pulse Resp BP Pulse Ox 97.4 F L 84 16 163/91 H 95 03/21/19 00:48 03/21/19 00:48 03/21/19 00:48 03/21/19 00:48 03/21/19 00:48 Oxygen Flow Rate (L/min) 2 Oxygen Delivery Method Nasal Cannula Weight: 239 lb 3.225 oz Body Mass Index (BMI) 34.3 Finger Stick Blood Glucose 234 Laboratory Tests Past 24 Hrs 03/20/19 03/20/19 03/20/19 22:30 22:30 22:30 WBC 7.2 RBC 4.88 Hgb 15.3 Hct 42.8 MCV 87.7 MCH 31.4 MCHC 35.7 RDW Std Deviation 40.9 RDW Coeff of Chip 12.7 Plt Count 155 MPV 11.2 Immature Gran % (Auto) 0.100 Neut % (Auto) 46.2 L Lymph % (Auto) 43.6 H Martin % (Auto) 7.8 Eos % (Auto) 1.9 Baso % (Auto) 0.4 Absolute Neuts (auto) 3.3 Absolute Lymphs (auto) 3.14 Nucleated RBC % 0 PT 12.6 INR 1.0 APTT 28.2 Sodium 141 Potassium 3.5 Chloride 105 Carbon Dioxide 27.0 Anion Gap 9 BUN 12 Creatinine 0.77 Estim Creat Clear Calc 114.56 Est GFR (MDRD) Af Amer 135 Est GFR (MDRD) Non-Af 112 BUN/Creatinine Ratio 15.5 Glucose 228 H Calcium 8.9 Troponin I < 0.015 Assessment/Plan All Active Problems (Last Reviewed 02/15/19 @ 08:50 by Debra Brock) Acute embolic stroke (Acute) History of coronary artery stent placement (Resolved 09/2016) Angina pectoris (Resolved) Arterial complication of procedure (Resolved) Chronic Problems (Last Reviewed 02/15/19 @ 08:50 by Debra Brock) History of stroke (Chronic) Old myocardial infarction (Chronic) Nicotine dependence (Chronic) Atherosclerosis of coronary artery of [place] heart without angina pectoris (Chronic) Essential (primary) hypertension (Chronic) HLD (hyperlipidemia) (Chronic) Plan 1. Acute CVA?admit to the intensive care unit consult building illuminating engineer and neurologist. Follow stroke protocol with neurologic evaluations regarding thrombolytic therapy. 2. nicotine dependence cessation encouraged 3. Hypertension monitor bp per stroke protocol 4. Hyperlipidemia continue current medication 5. DVT prophylaxis patient received thrombolytic therapy Code Visit Inpatient E&M: 97752 Init Hosp L3
--- NOTE | 2019-03-21 00:58 | ED.RN ---
DELAY GETTING PATIENT TO THE FLOOR. PATIENT HAD TO HAVE BOWEL MOVEMENT
--- NOTE | 2019-03-21 01:21 | MRI_ITS ---
STUDY: MRI BRAIN WITHOUT CONTRAST REASON FOR EXAM: Male, 53 years old. Right facial droop. Bilateral lower extremity weakness. Syncope. Status post TPA administration. TECHNIQUE: Standardized multiplanar fat and water weighted pulse sequences were obtained. COMPARISON: 01/09/2018. CT head without contrast 03/20/2019. CTA head and neck 03/20/2019. FINDINGS: No restricted diffusion to suspect acute or subacute ischemic infarct. 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 Normal ventricles and cisterns. Small subcortical white matter T2 FLAIR hyperintensity foci in both cerebral hemispheres are presumably chronic white matter ischemic changes. Normal bilateral basal ganglia. Normal thalami. There is no extra-axial fluid accumulation. Normal flow voids within the major intracranial circulation suggesting patency by spin echo criteria. Normal sella turcica, pituitary gland, infundibular stalk, optic chiasm and hypothalamus. Normal tectal plate and pineal gland. Normal midbrain, [place] and medulla. Normal cerebellum. Normal basal cisterns. Normal bilateral temporal bones. Normal bilateral internal auditory canals. No demonstrated orbital abnormality, within the constraints of a routine brain study. Normal visualized paranasal sinuses. Normal calvarium and skull base. Normal visualized soft tissue structures. Normal visualized upper cervical spine. MRI/Brain without Contrast IMPRESSION: 1. No MRI evidence of acute or subacute ischemic infarct. 2. 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 3. A few small scattered subcortical white matter T2 FLAIR hyperintensity foci are nonspecific. They are presumably chronic white matter ischemic changes. Electronically Signed: Luis Delgado MD at 13:25 EDT , Service support ,
[2019-03-21] MEDS: Morphine 2 MG/ML Syringe IV ×3 (02:16→09:21)
[2019-03-21] MEDS: 0.9% NaCl Peripheral Flush Adult/Peds IV ×4 (02:20→13:47)
[2019-03-21 04:13] LABS: Absolute Lymphocyte Count 2.85 X10^3/uL (0.83-4.51); Absolute Neutrophil Count 3.4 X10^3/uL (2.0-7.7); Basophil# 0.02 X10^3/uL; Basophil% 0.3 % (0-1); Eosinophil# 0.18 X10^3/uL; Eosinophils% 2.6 % (0-5); Hematocrit 42.9 % (40-54); Lymphocyte # 2.85 X10^3/ul (4.0); Lymphocyte % 40.4 % (19-41); Mean Corpuscular Hgb 31.2 pg (27.0-32.0); Mean Corpuscular Volume 89.2 fL (80-94); Mean Platelet Vol. 10.8 fl (6.2-12.0); Monocyte% 8.5 % (0-10); NRBC Flagged by Analyzer 0 % (0-5); Neutrophil # 3.39 X10^3/uL (2.7-7.7); Neutrophil % 48.1 % (47-70); Platelet Count 151 K/mm3 (150-450); RBC Distribution Width CV 12.4 % (11.6-14.6); RBC Distribution Width SD 40.9 fl (35.1-43.9); Red Blood Count 4.81 M/mm3 (4.6-6.2); White Blood Count 7.1 K/mm3 (4.4-11.0)
[2019-03-21 04:48] LABS: Anion Gap 8 (5-15); BUN 10 mg/dL (7-18); BUN/Creat Ratio 13.5 RATIO (10-20); Calcium,Total 8.9 mg/dL (8.5-10.1); Chloride 106 mmol/L (98-107); Cholesterol 163 mg/dL (200); Creatinine, Serum 0.74 mg/dL (0.70-1.30); EST Glomerular Filtration Rate 117 mL/min (>60); Est Glom Filt Rate - Afr Amer 142 mL/min (>60); Estimated Creatinine Clearance 122.96 ml/min; Glucose 223 mg/dL (74-106); High Density Lipoprotein 29 mg/dL; Potassium 3.4 mmol/L (3.5-5.1); Sodium Level 144 mmol/L (136-145); Triglycerides 386 mg/dL; Very Low Density Lipoprotein 77 mg/dL (5-40)
--- NOTE | 2019-03-21 06:50 | CON.PCM_ITS ---
Reason for Consult Date of Consultation: 03/21/19 Reason for Consultation: Stroke status post TPA History of Present Illness: The patient is a 53-year-old male, with a history as outlined below, who presented to the emergency department on March 21 with complaints of chest pain and syncopal event. The patient does have multiple comorbidities including prior CVA. Of note, the patient was admitted to the hospital in December 2017 with altered mentation suspected to be secondary to transient ischemic attack. The patient was evaluated by neurology at that time. The patient was also admitted to the hospital in January 2019 with complaints of chest pain, for which ACS was ruled out. The patient is an active daily smoker. He also reports a history of diabetic neuropathy. On presentation to the emergency department, the patient was noted to be hypertensive with a blood pressure of 180/110. He was maintaining appropriate oxygen saturations on room air. Initial NIH score documented in the emergency department was 8. Laboratory evaluation revealed no evidence of a leukocytosis. Coagulation profile was within normal limits. Chemistry profile was unremarkable. Troponin was negative. A CT head was obtained which revealed encephalomalacia within the right frontal lobe without evidence of intracranial hemorrhage. CTA neck was normal. Plain film chest x-ray reveals no acute cardiopulmonary process. Although the patient's presentation was rather atypical with bilateral weakness, neurology consultation was obtained through the [facility] [employer] [facility] stroke system. Following evaluation by neurology, TPA was felt to be indicated. The patient was subsequently admitted to the medical intensive care unit following TPA administration. Past Medical History Past Medical History (Chronic Problems): Chronic Problems (Last Reviewed 02/15/19 @ 08:50 by Debra Brock) History of stroke (Chronic) Old myocardial infarction (Chronic) Nicotine dependence (Chronic) Atherosclerosis of coronary artery of [place] heart without angina pectoris (Chronic) Essential (primary) hypertension (Chronic) HLD (hyperlipidemia) (Chronic) Medical History: Medical History (Last Reviewed 02/15/19 @ 08:50 by Debra Brock) Old myocardial infarction (Chronic) I25.2 Nicotine dependence (Chronic) F17.200 Atherosclerosis of coronary artery of [place] heart without angina pectoris (Chronic) I25.10 Essential (primary) hypertension (Chronic) I10 HLD (hyperlipidemia) (Chronic) E78.5 CVA (cerebral vascular accident) I63.9 Diabetic retinopathy E11.319 GERD (gastroesophageal reflux disease) K21.9 Obesity (BMI 30.0-34.9) E66.9 Type 2 diabetes mellitus E11.9 Mental status alteration R41.82 Allergies No Known Allergies Allergy (Verified 03/14/19 18:25) Home Medications: Ambulatory Orders Medication Instructions Recorded Clopidogrel Bisulfate [Plavix] 75 mg PO DAILY 06/11/16 Bupropion HCl [Bupropion Xl] 300 mg PO DAILY 11/09/16 Metformin HCl [Metformin HCl ER] 500 mg PO BID #0 11/08/17 Carvedilol 6.25 mg PO BID 01/09/18 Ranitidine [Zantac] 150 mg PO QHS 01/09/18 busPIRone [Buspar] 5 mg PO TID 01/09/18 Loratadine 20 mg PO DAILY 02/28/18 Insulin Glargine,Hum.rec.anlog 22 unit SQ QHS 02/11/19 [Tammi Olson U-100] Surgical History: Surgical History (Last Reviewed 02/15/19 @ 08:50 by Debra Brock) History of coronary artery stent placement (Resolved) Onset Date: 09/2016 Z95.5 PCI-BREANNE-OM2; PCI-BREANNE x 2 Distal and Prox RCA; PCI-Cutting Balloon Angioplasty -ISR OM2 09/2016 History of elbow surgery Z98.890 History of left heart catheterization Onset Date: 11/08/17 Z98.890 Surgical History: angioplasty - coronary stent, - - LUE surgery, PCI, T+A. Psychiatric History: No pertinent psych hx Smoking Status: Current every day smoker - *Family History Sibling Family History: Family History (Last Reviewed 02/15/19 @ 08:50 by Debra Brock) Other Diabetes Heart disease Hypertension Myocardial infarction History Items: Heart Disease - Brother w/ CAD/[place] in his 50s, fatal. Maternal Family History: Family History (Last Reviewed 02/15/19 @ 08:50 by Debra Brock) Other Diabetes Heart disease Hypertension Myocardial infarction History Items: Diabetes, - Paternal Family History: Family History (Last Reviewed 02/15/19 @ 08:50 by Debra Brock) Other Diabetes Heart disease Hypertension Myocardial infarction History Items: Diabetes, High Cholesterol, Heart Disease - CAD s/p [place] in his 50s., Hypertension, - - diabetes, heart disease Review of Systems Constitutional: Denies: Chills, Fever, Weight Change HEENT: Denies: Head Aches, Sinus Congestion, Sinus Drainage Cardiovascular: Denies: Chest Pain, Palpitations Respiratory: Denies: Cough, Shortness of breath at rest, Sputum production Gastrointestinal: Denies: Abdominal Pain, Nausea, Vomiting Genitourinary: Denies: Dysuria Musculoskeletal: Reports: - - +Hip Pain (Left) Skin: Denies: Rash, Wounds Neurological: Reports: Numbness Psychiatric: Denies: Anxiety, Depression, Homicidal Ideations, Suicidal Ideations Hematologic/ Lymphatic: Denies: Easy Bruising, Easy Bleeding Patient Problems: Active and Suspected Problems (Last Reviewed 02/15/19 @ 08:50 by Debra Brock) Acute embolic stroke (Acute) Stroke (Acute) Objective: The patient's most recent lab work, culture data and imaging studies have all been personally reviewed. - Physical Exam General: Alert, Cooperative, No apparent distress HEENT: Atraumatic, PERRLA, Normocephalic Oral: No Gingival or Mucosal Lesions/ Ulcerations Neck: Supple, No Nodes, Trachea Midline Lungs: No rhonchi, No wheeze, No rales, Diminished Cardiovascular: Regular rate, Regular Rhythm, Normal S1, Normal S2, No murmurs Abdomen: Bowel Sounds Present, Soft, Non Tender, Obese Extremities: No clubbing, No cyanosis, No edema Skin: No breakdown Musculoskeletal: - - + L Hip Pain Lymphatic: No Cervical, Supraclavicular, or Inguinal Adenopathy Neurological: - - No focal neurological deficits. Psych/Mental Status: Flat Affect Vital Signs Temp Pulse Resp BP Pulse Ox 97.7 F L 76 12 142/99 H 98 03/21/19 06:30 03/21/19 06:30 03/21/19 06:30 03/21/19 06:30 03/21/19 06:30 Oxygen Flow Rate (L/min) 2 Oxygen Delivery Method Room Air Weight: 230 lb 13.184 oz Body Mass Index (BMI) 32.8 Finger Stick Blood Glucose 234 Intake and Output for Last 24 Hours 03/19/19 03/20/19 03/21/19 23:59 23:59 23:59 Intake Total 87.1 / 87.1 Output Total 1300 / 1300 Balance -1212.9 / -1212.9 Laboratory Tests Past 24 Hrs 0703/20/19 03/20/19 22:30 22:30 22:30 WBC 7.2 RBC 4.88 Hgb 15.3 Hct 42.8 MCV 87.7 MCH 31.4 MCHC 35.7 RDW Std Deviation 40.9 RDW Coeff of Chip 12.7 Plt Count 155 MPV 11.2 Immature Gran % (Auto) 0.100 Neut % (Auto) 46.2 L Lymph % (Auto) 43.6 H [place] % (Auto) 7.8 Eos % (Auto) 1.9 Baso % (Auto) 0.4 Absolute Neuts (auto) 3.3 Absolute Lymphs (auto) 3.14 Nucleated RBC % 0 PT 12.6 INR 1.0 APTT 28.2 Sodium 141 Potassium 3.5 Chloride 105 Carbon Dioxide 27.0 Anion Gap 9 BUN 12 Creatinine 0.77 Estim Creat Clear Calc 114.56 Est GFR (MDRD) Af Amer 135 Est GFR (MDRD) Non-Af 112 BUN/Creatinine Ratio 15.5 Glucose 228 H Calcium 8.9 Troponin I < 0.015 Triglycerides Cholesterol LDL Cholesterol VLDL Cholesterol HDL Cholesterol 03/21/19 03/21/19 03/21/19 01:45 04:00 04:00 WBC 7.1 RBC 4.81 Hgb 15.0 Hct 42.9 MCV 89.2 MCH 31.2 MCHC 35.0 RDW Std Deviation 40.9 RDW Coeff of Chip 12.4 Plt Count 151 MPV 10.8 Immature Gran % (Auto) 0.100 Neut % (Auto) 48.1 Lymph % (Auto) 40.4 [place] % (Auto) 8.5 Eos % (Auto) 2.6 Baso % (Auto) 0.3 Absolute Neuts (auto) 3.4 Absolute Lymphs (auto) 2.85 Nucleated RBC % 0 PT INR APTT Sodium 144 Potassium 3.4 L Chloride 106 Carbon Dioxide 30.0 Anion Gap 8 BUN 10 Creatinine 0.74 Estim Creat Clear Calc 122.96 Est GFR (MDRD) Af Amer 142 Est GFR (MDRD) Non-Af 117 BUN/Creatinine Ratio 13.5 Glucose 223 H Calcium 8.9 Troponin I < 0.015 Triglycerides 386 H Cholesterol 163 LDL Cholesterol 57 VLDL Cholesterol 77 H HDL Cholesterol 29 L Clinical Impression(s) from Imaging Studies Brain CT 03/20/19 22:38 IMPRESSION: Stable encephalomalacia within the right frontal lobe, it there is clinical concern for acute infarct MRI brain follow-up could be performed Stable old deep white matter ischemia Mild right chronic mastoid effusion The results were called to and discussed with Physician: Perico Mueller at approximately 11:02 PM 03/20/2019. N.B. : The above information has been verbally conveyed by Darrell Stanley to Perico Mueller MD, on 03/20/2019 23:07:21 (ET). Electronically Signed: Darrell Stanley at 23:09 EDT Tel , Service support , ADDENDUM: 03/20/19 2316 IMPRESSION: Stable encephalomalacia within the right frontal lobe, it there is clinical concern for acute infarct MRI brain follow-up could be performed Stable old deep white matter ischemia Mild right chronic mastoid effusion The results were called to and discussed with Physician: Perico Mueller at approximately 11:02 PM 03/20/2019. N.B. : The above information has been verbally conveyed by Darrell Stanley to Perico Mueller MD, on 03/20/2019 23:07:21 (ET). Electronically Signed: Darrell Stanley at 23:09 EDT Tel , Service support , Head/Neck CTA 03/20/19 22:38 IMPRESSION: Normal CTA neck with contrast. No significant intracerebral stenoses, mild atherosclerotic plaques within the cavernous and internal carotid arteries Significant multilevel spondylosis cervical spine Stable encephalomalacia within the right frontal lobe, stable old small vessel deep white matter ischemic changes Small subcentimeter anterior paratracheal lymph node likely benign Stable right mastoid effusion Electronically Signed: Darrell Stanley at 23:37 EDT Tel , Service support , Chest X-Ray 03/20/19 22:41 IMPRESSION: Stable chest, no acute cardiopulmonary disease. Electronically Signed: Jermaine Ho MD at 23:57 EDT , Service support , Assessment/Plan Active and Suspected Problems (Last Reviewed 02/15/19 @ 08:50 by Debra Brock) Acute embolic stroke (Acute) Stroke (Acute) RECOMMENDATIONS: 1. Continue medical management per TPA administration protocol. 2. Allow for permissive hypertension. 3. Repeat head imaging 24 hours post TPA administration. 4. PT/OT evaluation tomorrow. 5. Dysphasia screen per speech therapy. 6. Obtain echocardiogram. 7. Await additional neurology recommendations. 8. Initiate nicotine replacement therapy. IMPRESSIONS: 1. Acute CVA status post TPA administration The patient did receive TPA in the emergency department on the evening of March 20 for suspected ischemic CVA. Neurology consultation is currently pending. Plan to repeat head imaging 24 hours post TPA administration. Will obtain echocardiogram and allow for permissive hypertension for now. Anticipate need for MRI head. PT/OT evaluations tomorrow once repeat head imaging has been completed. 2. History of coronary artery disease status post PCI Okay to continue statins. However, would hold antihypertensives for now. 3. Continuous tobacco dependency Smoking cessation is strongly advised. Nicotine replacement therapy can be offered to the patient while admitted to the hospital. 4. Diabetes mellitus/hypertension/obesity Complicates care, management, recovery and prognosis. Initiate sliding scale insulin coverage once diet has been advanced. Hold antihypertensives. This note was generated with [employer] dictation software. It may contain incorrect words, spelling, and punctuation that were not noted in checking the note before signing. Code Visit Inpatient E&M: 89995 Init Hosp L3
--- NOTE | 2019-03-21 07:02 | PN_ITS ---
Patient Problems: Active and Suspected Problems (Last Reviewed 02/15/19 @ 08:50 by Debra Brock) Acute embolic stroke (Acute) Subjective: Patient is a 53-year-old gentleman admitted with right-sided weakness and right facial droop with slurred speech and confusion. An assessment of acute ischemic CVA was made patient did receive TPA subsequently admitted to the intensive care unit for stabilization Patient seen this a.m. complains of significant left hip pain as well as intermittent chest pain Objective: GENERAL: cooperative HEENT: Atraumatic; moist oral mucosa EYES; Anicteric, Normal Conjunctiva NECK; supple, normal thyroid, . RESPIRATORY: Diminished to auscultation bilaterally, CARDIOVASCULAR: Regular S1 S2, GI: soft, non-tender, normoactive bowel sounds, : No Renal angle tenderness; EXTREMITIES: No edema, no clubbing, MUSCULOSKELETAL: No Joint Tenderness; NEURO: Awake; no lateralizing signs. SKIN: No Rash PSYCH; flat affect Vitals/I&O's: Vital Signs Temp Pulse Resp BP Pulse Ox 97.7 F L 76 12 142/99 H 98 03/21/19 06:30 03/21/19 06:30 03/21/19 06:30 03/21/19 06:30 03/21/19 06:30 Oxygen Flow Rate (L/min) 2 Oxygen Delivery Method Room Air Weight: 104.7 kg Body Mass Index (BMI) 32.8 Finger Stick Blood Glucose 234 Intake and Output for Last 24 Hours 03/19/19 03/20/19 03/21/19 23:59 23:59 23:59 Intake Total 87.1 / 87.1 Output Total 1300 / 1300 Balance -1212.9 / -1212.9 Laboratory Results 03/20/19 22:30: WBC 7.2, RBC 4.88, Hgb 15.3, Hct 42.8, MCV 87.7, MCH 31.4, MCHC 35.7, RDW Std Deviation 40.9, RDW Coeff of Chip 12.7, Plt Count 155, MPV 11.2, Immature Gran % (Auto) 0.100, Neut % (Auto) 46.2 L, Lymph % (Auto) 43.6 H, [place] % (Auto) 7.8, Eos % (Auto) 1.9, Baso % (Auto) 0.4, Absolute Neuts (auto) 3.3, Absolute Lymphs (auto) 3.14, Nucleated RBC % 0 03/20/19 22:30: PT 12.6, INR 1.0, APTT 28.2 03/20/19 22:30: Sodium 141, Potassium 3.5, Chloride 105, Carbon Dioxide 27.0, Anion Gap 9, BUN 12, Creatinine 0.77, Estim Creat Clear Calc 114.56, Est GFR (MDRD) Af Amer 135, Est GFR (MDRD) Non-Af 112, BUN/Creatinine Ratio 15.5, Glucose 228 H, Calcium 8.9, Troponin I < 0.015 03/21/19 01:45: Troponin I < 0.015 03/21/19 04:00: WBC 7.1, RBC 4.81, Hgb 15.0, Hct 42.9, MCV 89.2, MCH 31.2, MCHC 35.0, RDW Std Deviation 40.9, RDW Coeff of Chip 12.4, Plt Count 151, MPV 10.8, Immature Gran % (Auto) 0.100, Neut % (Auto) 48.1, Lymph % (Auto) 40.4, [place] % (Auto) 8.5, Eos % (Auto) 2.6, Baso % (Auto) 0.3, Absolute Neuts (auto) 3.4, Absolute Lymphs (auto) 2.85, Nucleated RBC % 0 03/21/19 04:00: Sodium 144, Potassium 3.4 L, Chloride 106, Carbon Dioxide 30.0, Anion Gap 8, BUN 10, Creatinine 0.74, Estim Creat Clear Calc 122.96, Est GFR (MDRD) Af Amer 142, Est GFR (MDRD) Non-Af 117, BUN/Creatinine Ratio 13.5, Glucose 223 H, Calcium 8.9, Triglycerides 386 H, Cholesterol 163, LDL Cholesterol 57, VLDL Cholesterol 77 H, HDL Cholesterol 29 L Current Medications Dextrose (D50w Syringe) 0 gm IV X1 PRN; Protocol PRN Reason: Hypoglycemia Glucagon () 1 mg IM .X1 PRN PRN Reason: Hypoglycemia Sodium Chloride () 250 mls @ 15 mls/hr IV .[id number] PRN PRN Reason: SALINE FLUSH Insulin Glargine (Lantus (Bkc)) 10 units SC QHS DELIA Insulin Human Lispro (Humalog Kwikpen (Bkc)) 0 unit SC ACHS DELIA; Protocol Morphine Sulfate () 2 mg IV Q3H PRN PRN PRN Reason: Severe pain (-06/01) Last Admin: 03/21/19 05:56 Dose: 2 mg Documented by: Sodium Chloride () 10 - 40 ml IV UD PRN PRN Reason: SALINE FLUSH Last Admin: 03/21/19 05:57 Dose: 40 ml Documented by: Medical Necessity - Tobacco Use Smoking Status: Current every day smoker Assessment/Plan All Active Problems (Last Reviewed 02/15/19 @ 08:50 by Debra Brock) Acute embolic stroke (Acute) History of coronary artery stent placement (Resolved 09/2016) Angina pectoris (Resolved) Arterial complication of procedure (Resolved) Patient is a 53-year-old gentleman admitted with right-sided weakness and right facial droop with slurred speech and confusion. An assessment of acute ischemic CVA was made patient did receive TPA subsequently admitted to the intensive care unit for stabilization 1. Acute ischemic CVA patient admitted to the intensive care unit following a demonstration of TPA. Patient NIH score as of 03/21/2019 1 2. Diabetes mellitus type 2 with history of peripheral neuropathy patient is on long-acting insulin continued in addition to Accu-Cheks before meals and at bedtime with sliding scale coverage 3. Dyslipidemia: Patient was previously on statin 4. Hypertension patient blood pressure acceptable given his presentation 5. CAD with previous stent placement. Patient did complain of intermittent chest pain cardiac enzymes have remained negative to date 6. Diabetic polyneuropathy 7. Tobacco dependence counseled on cessation, offered nicotine patch for tobacco cravings 8. Obesity with BMI of 32.2 9. Hypokalemia corrected per protocol 10. Left hip pain did order routine x-rays for subsequent evaluation 11. DVT prophylaxis SCD's Active Medications Dextrose (D50w Syringe) 0 gm IV X1 PRN; Protocol PRN Reason: Hypoglycemia Glucagon () 1 mg IM .X1 PRN PRN Reason: Hypoglycemia Sodium Chloride () 250 mls @ 15 mls/hr IV .[id number] PRN PRN Reason: SALINE FLUSH Insulin Glargine (Lantus (Bkc)) 10 units SC QHS DELIA Insulin Human Lispro (Humalog Kwikpen (Bk)) 0 unit SC ACHS DELIA; Protocol Morphine Sulfate () 2 mg IV Q3H PRN PRN PRN Reason: Severe pain (7-10/10) Last Admin: 03/21/19 05:56 Dose: 2 mg Documented by: Sodium Chloride () 10 - 40 ml IV UD PRN PRN Reason: SALINE FLUSH Last Admin: 03/21/19 05:57 Dose: 40 ml Documented by: Clinical Impression(s) from Imaging Studies Brain CT 03/20/19 22:38 IMPRESSION: Stable encephalomalacia within the right frontal lobe, it there is clinical concern for acute infarct MRI brain follow-up could be performed Stable old deep white matter ischemia Mild right chronic mastoid effusion The results were called to and discussed with Physician: Perico Mueller at approximately 11:02 PM 03/20/2019. N.B. : The above information has been verbally conveyed by Perico Lauren MD, on 03/20/2019 23:07:21 (ET). Electronically Signed: Darrell Stanley at 23:09 EDT Tel , Service support , ADDENDUM: 03/20/19 2316 IMPRESSION: Stable encephalomalacia within the right frontal lobe, it there is clinical concern for acute infarct MRI brain follow-up could be performed Stable old deep white matter ischemia Mild right chronic mastoid effusion The results were called to and discussed with Physician: Perico Mueller at approximately 11:02 PM 03/20/2019. N.B. : The above information has been verbally conveyed by Perico Lauren MD, on 03/20/2019 23:07:21 (ET). Electronically Signed: Darrell Stanley at 23:09 EDT Tel , Service support , Head/Neck CTA 03/20/19 22:38 IMPRESSION: Normal CTA neck with contrast. No significant intracerebral stenoses, mild atherosclerotic plaques within the cavernous and internal carotid arteries Significant multilevel spondylosis cervical spine Stable encephalomalacia within the right frontal lobe, stable old small vessel deep white matter ischemic changes Small subcentimeter anterior paratracheal lymph node likely benign Stable right mastoid effusion Electronically Signed: Darrell Stanley at 23:37 EDT Tel , Service support , Chest X-Ray 03/20/19 22:41 IMPRESSION: Stable chest, no acute cardiopulmonary disease. Electronically Signed: Jermaine Ho MD at 23:57 EDT , Service support , Code Visit Inpatient E&M: 79715 Subs Hosp L3
--- NOTE | 2019-03-21 07:20 | ECHOCS_ITS ---
Reason For Study: TIA/CVA Procedure This was a 2D Doppler, Color Flow transthoracic echocardiogram. The study was technically difficult. Contrast injection was performed. Exam performed portable in ICU/CCU. Left Ventricle Normal LV size. Mild segmental systolic dysfunction (see wall motion). The estimated ejection fraction is 50 %. Diastolic function is indeterminate. Lateral-Basal: Hypokinetic. Posterior-Basal: Hypokinetic. Mid-Lateral : Hypokinetic. Mid-Posterior: Hypokinetic. Lateral [place] : Hypokinetic. Right Ventricle Normal RV size. Normal systolic function. Atria Normal left atrium. Normal right atrium. No doppler evidence for ASD. Mitral Valve There is no mitral annular calcification. Normal mitral valve. Trivial mitral valve insufficiency. Tricuspid Valve Normal tricuspid valve. Trivial tricuspid valve insufficiency. Unable to estimate RV systolic pressure/pulmonary artery pressure due to technically difficult study. Aortic Valve Trisinus/trileaflet aortic valve. Normal aortic valve. Pulmonic Valve The pulmonic valve is not well visualized. Great Vessels The aortic root is not well visualized. Pericardium/Pleural No pericardial effusion. Medication Diluted definity 6ml given slow IV push to enhance endocardial definition. MMode/2D Measurements & Calculations LA dimension: 4.0 cm LAV(MOD-bp): 49.8 ml LVAd ap4: 41.6 cm2 LAV(MOD-bp) Indexed: 22.2 ml/m2 EDV(MOD-sp4): 147.3 ml LAV(MOD-sp2): 54.5 ml EDV(sp4-el): 151.8 ml LAV(MOD-sp4): 39.6 ml LVAs ap4: 29.4 cm2 ESV(MOD-sp4): 88.2 ml ESV(sp4-el): 89.0 ml EF(MOD-sp4): 40.1 % EF(sp4-el): 41.4 % SV(MOD-sp4): 59.0 ml SV(sp4-el): 62.8 ml LA A4 area: 15.3 cm2 RA A4 area: 14.2 cm2 Time Measurements MV dec time: 0.18 sec Doppler Measurements & Calculations MV E max kapil: 98.5 cm/sec Lat Peak E' Kapil: 8.6 cm/sec Med Peak E' Kapil: 7.7 cm/sec MV A max kapil: 78.7 cm/sec E/E' lat: 11.5 E/E' med: 12.8 MV E/A: 1.3 MV V2 max: 101.1 cm/sec MV P1/2t max kapil: 100.0 cm/sec Ao V2 max: 97.7 cm/sec MV max P.1 mmHg MV P1/2t: 93.5 msec Ao max P.8 mmHg MV V2 mean: 65.0 cm/sec MV dec slope: 313.3 cm/sec2 MV mean P.9 mmHg MV V2 VTI: 28.6 cm MVA(P1/2t): 2.4 cm2 LV V1 max: 89.9 cm/sec PA V2 max: 96.3 cm/sec LV V1 max P.2 mmHg Interpretation Summary The study was technically difficult. Contrast injection was performed. Mild segmental systolic dysfunction (see wall motion). The estimated ejection fraction is 50 %. Trivial mitral valve insufficiency. Trivial tricuspid valve insufficiency. Unable to estimate RV systolic pressure/pulmonary artery pressure due to technically difficult study. Diastolic function is indeterminate. Ordering Physician: Yuriy Sabillon Referring Physician: ASCENCION LERMA Performed By: Orlando Mcgovern RCS
[2019-03-21 07:36] LABS: Bedside Glucose 234 mg/dL (70-110)
[2019-03-21 08:01] LABS: Bedside Glucose 260 mg/dL (70-110)
[2019-03-21] MEDS: Insulin Lispro 100 UNIT/ML INSULN.PEN SC ×4 (08:33→21:24)
--- NOTE | 2019-03-21 09:30 | CASEMGMT ---
RN Note. Unable to complete RN CM assessment at this time. [place] BSN RN ACM
--- NOTE | 2019-03-21 10:33 | MRI_ITS ---
STUDY: MRI LUMBAR SPINE WITHOUT CONTRAST REASON FOR EXAM: Male, 53 years old. Hip pain and back pain. TECHNIQUE: Standardized fat and water weighted pulse sequences were obtained in the sagittal and axial planes. COMPARISON: None FINDINGS: T12-L1: (Sagittal only). Normal endplates. Normal disc height, hydration and morphology. Normal central canal and bilateral intervertebral neural foramina. Normal lumbar lordosis. There is no substantial scoliosis. Normal conus medullaris that terminates at the mid T12 vertebral body level. L1-2: Normal endplates. Normal disc height, hydration and morphology. Normal bilateral facet joints. Normal central canal and bilateral lateral recesses. Normal bilateral intervertebral neural foramina. L2-3: Anterior marginal spurs. Minimal degenerative listhesis of L2 on L3. Normal disc height with moderate loss of disc hydration. Small posterior bulging disc. Normal central canal and bilateral lateral recesses. Mild degenerative facet arthropathy. Normal bilateral intervertebral neural foramina. L3-4: Normal endplates. Normal disc height. Mild loss of disc hydration. Prominent left ventral extra dural defect causing stenosis of the left lateral recess and posterior displacement of the left L4 nerve root sleeve. Normal central canal. Normal right lateral recess. Normal facet joints. Normal bilateral intervertebral neural foramina. L4-5: Normal endplates. Normal disc height. Mild right ventral extradural defect but no displacement of the right L5 nerve root sleeve. Normal central canal. Normal facet joints. Normal bilateral intervertebral neural foramina. L5-S1: Normal endplates. Normal disc height, hydration and morphology. Normal bilateral facet joints. Normal central canal and bilateral lateral recesses. Normal bilateral intervertebral neural foramina. Normal visualized sacral ala. Normal visualized paraspinous soft tissue structures. OPINION: 1. Prominent left L3-L4 ventral extradural defect causing stenosis of the left lateral recess with posterior displacement of the left L4 nerve root sleeve. This is most likely prominent disc protrusion rather than disc extrusion at this time. 2. Smaller right ventral extradural defect at L4-L5 disc level and no displacement of the right L5 nerve root sleeve. This is a smaller broad-based disc protrusion. 3. Minimal degenerative retrolisthesis of L2 on L3. Electronically Signed: Luis Delgado MD at 15:14 EDT , Service support , MRI/Spine Lumbar (Routine)
--- NOTE | 2019-03-21 10:48 | PCM.CONS.GEN ---
Problem List (1) Stroke Status: Acute (2) History of stroke Status: Chronic Reason for Consult Date of Consultation: 03/21/19 Reason for Consultation: Stroke History of Present Illness: The patient is a 53 year old M H HTN, HLD, DM, DM neuropathy, history of stroke, CAD status post stents, tobacco and marijuana abuse, obesity admitted with syncope and strokelike symptoms. Per patient he had an argument with his mother about selling the house yesterday 03/20/2019, later he had a syncopal episode and was unresponsive, per patient the next thing he remembered was waking up in the ambulance, denies any tongue bite, denies any urinary incontinence, was confused after the event per patient, denies any witnessed seizure, in the ED per ED documentation his initial NIHSS was 8, he was found to have right facial droop and weakness on the right side with slurred speech and confusion, [facility] tele-stroke team was consulted, and it was felt by the [facility] stroke neurologist that patient is a TPA candidate and patient was given IV TPA around 11:30 PM on 03/20/2019. At present patient denies any headache, dizziness, visual disturbances, speech disturbances, focal motor weakness or sensory loss. Per patient he has left hip pain and low back pain, per patient he may use cane for ambulating at home home to the left hip issues and may have intermittent falls because of the same, does drive. Per documentation he is on Plavix at baseline at home. CT head done on admission showed stable and supplementation within the right frontal lobe, nothing acute. CTA head/neck done did not show any hemodynamically significant stenosis or occlusion. Blood pressure admission was 180 x 110 mmHg. Past Medical History Past Medical History (Chronic Problems): Chronic Problems (Last Reviewed 02/15/19 @ 08:50 by Debra Brock) History of stroke (Chronic) Old myocardial infarction (Chronic) Nicotine dependence (Chronic) Atherosclerosis of coronary artery of [place] heart without angina pectoris (Chronic) Essential (primary) hypertension (Chronic) HLD (hyperlipidemia) (Chronic) Medical History: Medical History (Last Reviewed 02/15/19 @ 08:50 by Debra Brock) Old myocardial infarction (Chronic) I25.2 Nicotine dependence (Chronic) F17.200 Atherosclerosis of coronary artery of [place] heart without angina pectoris (Chronic) I25.10 Essential (primary) hypertension (Chronic) I10 HLD (hyperlipidemia) (Chronic) E78.5 CVA (cerebral vascular accident) I63.9 Diabetic retinopathy E11.319 GERD (gastroesophageal reflux disease) K21.9 Obesity (BMI 30.0-34.9) E66.9 Type 2 diabetes mellitus E11.9 Mental status alteration R41.82 Allergies No Known Allergies Allergy (Verified 03/14/19 18:25) Home Medications: Ambulatory Orders Medication Instructions Recorded Clopidogrel Bisulfate [Plavix] 75 mg PO DAILY 06/11/16 Bupropion HCl [Bupropion Xl] 300 mg PO DAILY 11/09/16 Metformin HCl [Metformin HCl ER] 500 mg PO BID #0 11/08/17 Carvedilol 6.25 mg PO BID 01/09/18 Ranitidine [Zantac] 150 mg PO QHS 01/09/18 busPIRone [Buspar] 5 mg PO TID 01/09/18 Loratadine 20 mg PO DAILY 02/28/18 Insulin Glargine,Hum.rec.anlog 22 unit SQ QHS 02/11/19 [Tammi Olson U-100] Surgical History: Surgical History (Last Reviewed 02/15/19 @ 08:50 by Debra Brock) History of coronary artery stent placement (Resolved) Onset Date: 09/2016 Z95.5 PCI-BREANNE-OM2; PCI-BREANNE x 2 Distal and Prox RCA; PCI-Cutting Balloon Angioplasty -ISR OM2 09/2016 History of elbow surgery Z98.890 History of left heart catheterization Onset Date: 11/08/17 Z98.890 Surgical History: angioplasty - coronary stent, - - LUE surgery, PCI, T+A. Psychiatric History: No pertinent psych hx Smoking Status: Current every day smoker Alcohol: None Drugs: Marijuana - *Family History Sibling Family History: Family History (Last Reviewed 02/15/19 @ 08:50 by Debra Brock) Other Diabetes Heart disease Hypertension Myocardial infarction History Items: Heart Disease - Brother w/ CAD/NV in his 50s, fatal. Maternal Family History: Family History (Last Reviewed 02/15/19 @ 08:50 by Debra Brock) Other Diabetes Heart disease Hypertension Myocardial infarction History Items: Diabetes, - Paternal Family History: Family History (Last Reviewed 02/15/19 @ 08:50 by Debra Brock) Other Diabetes Heart disease Hypertension Myocardial infarction History Items: Diabetes, High Cholesterol, Heart Disease - CAD s/p NV in his 50s., Hypertension, - - diabetes, heart disease Review of Systems Constitutional: Reports: - - Complete ROS negative except as documented in HPI Patient Problems: Active and Suspected Problems (Last Reviewed 02/15/19 @ 08:50 by Debra Brock) Acute embolic stroke (Acute) Stroke (Acute) - Physical Exam General: Alert HEENT: Normocephalic Neck: Supple Lungs: Normal air movement Cardiovascular: Normal S1, Normal S2 Abdomen: Bowel Sounds Present Extremities: No cyanosis Neurological: - - Conscious, alert, CN II through XII grossly intact, power 5 x 5 both upper and lower extremities, no pronator drift, plantar bilateral flexor, no sensory loss, no cerebellar signs, gait deferred, examination slightly limited by the left hip pain, NIHSS 0 at present, mRS 2 at baseline Psych/Mental Status: Normal Affect Vital Signs Temp Pulse Resp BP Pulse Ox 98.1 F 82 12 154/108 H 97 03/21/19 10:00 03/21/19 10:00 03/21/19 10:00 03/21/19 10:00 03/21/19 10:00 Oxygen Flow Rate (L/min) 2 Oxygen Delivery Method Room Air Weight: 104.7 kg Body Mass Index (BMI) 32.8 Finger Stick Blood Glucose 234 Intake and Output for Last 24 Hours 03/19/19 03/20/19 03/21/19 23:59 23:59 23:59 Intake Total 87.1 / 87.1 Output Total 1300 / 1300 Balance -1212.9 / -1212.9 Laboratory Tests Past 24 Hrs 03/20/19 03/20/19 03/20/19 22:30 22:30 22:30 WBC 7.2 RBC 4.88 Hgb 15.3 Hct 42.8 MCV 87.7 MCH 31.4 MCHC 35.7 RDW Std Deviation 40.9 RDW Coeff of Chip 12.7 Plt Count 155 MPV 11.2 Immature Gran % (Auto) 0.100 Neut % (Auto) 46.2 L Lymph % (Auto) 43.6 H [place] % (Auto) 7.8 Eos % (Auto) 1.9 Baso % (Auto) 0.4 Absolute Neuts (auto) 3.3 Absolute Lymphs (auto) 3.14 Nucleated RBC % 0 PT 12.6 INR 1.0 APTT 28.2 Sodium 141 Potassium 3.5 Chloride 105 Carbon Dioxide 27.0 Anion Gap 9 BUN 12 Creatinine 0.77 Estim Creat Clear Calc 114.56 Est GFR (MDRD) Af Amer 135 Est GFR (MDRD) Non-Af 112 BUN/Creatinine Ratio 15.5 Glucose 228 H Calcium 8.9 Troponin I < 0.015 Triglycerides Cholesterol LDL Cholesterol VLDL Cholesterol HDL Cholesterol 03/21/19 03/21/19 03/21/19 01:45 04:00 04:00 WBC 7.1 RBC 4.81 Hgb 15.0 Hct 42.9 MCV 89.2 MCH 31.2 MCHC 35.0 RDW Std Deviation 40.9 RDW Coeff of Chip 12.4 Plt Count 151 MPV 10.8 Immature Gran % (Auto) 0.100 Neut % (Auto) 48.1 Lymph % (Auto) 40.4 [place] % (Auto) 8.5 Eos % (Auto) 2.6 Baso % (Auto) 0.3 Absolute Neuts (auto) 3.4 Absolute Lymphs (auto) 2.85 Nucleated RBC % 0 PT INR APTT Sodium 144 Potassium 3.4 L Chloride 106 Carbon Dioxide 30.0 Anion Gap 8 BUN 10 Creatinine 0.74 Estim Creat Clear Calc 122.96 Est GFR (MDRD) Af Amer 142 Est GFR (MDRD) Non-Af 117 BUN/Creatinine Ratio 13.5 Glucose 223 H Calcium 8.9 Troponin I < 0.015 Triglycerides 386 H Cholesterol 163 LDL Cholesterol 57 VLDL Cholesterol 77 H HDL Cholesterol 29 L POC Glucose 03/21/19 03/20/19 07:57 22:30 POC Glucose 260 H 234 H Assessment/Plan All Active Problems (Last Reviewed 02/15/19 @ 08:50 by Debra Brock) Acute embolic stroke (Acute) Stroke (Acute) History of coronary artery stent placement (Resolved 09/2016) Angina pectoris (Resolved) Arterial complication of procedure (Resolved) The patient is a 53 year old M H HTN, HLD, DM, DM neuropathy, history of stroke, CAD status post stents, tobacco and marijuana abuse, obesity admitted with syncope and strokelike symptoms. Per patient he had an argument with his mother about selling the house yesterday 03/20/2019, later he had a syncopal episode and was unresponsive, per patient the next thing he remembered was waking up in the ambulance, denies any tongue bite, denies any urinary incontinence, was confused after the event per patient, denies any witnessed seizure, in the ED per ED documentation his initial NIHSS was 8, he was found to have right facial droop and weakness on the right side with slurred speech and confusion, [facility] tele-stroke team was consulted, and it was felt by the [facility] stroke neurologist that patient is a TPA candidate and patient was given IV TPA around 11:30 PM on 03/20/2019. At present patient denies any headache, dizziness, visual disturbances, speech disturbances, focal motor weakness or sensory loss. Per patient he has left hip pain and low back pain, per patient he may use cane for ambulating at home home to the left hip issues and may have intermittent falls because of the same, does drive. Per documentation he is on Plavix at baseline at home. CT head done on admission showed stable and supplementation within the right frontal lobe, nothing acute. CTA head/neck done did not show any hemodynamically significant stenosis or occlusion. Blood pressure admission was 180 x 110 mmHg. Impression Rule out stroke versus TIA?status post IV TPA Syncope Plan ?MRI brain without contrast MRI L-spine without contrast ?CTA head/neck did not show any hemodynamically segment stenosis or occlusion ?Repeat CT head in 24 hours after IV TPA. Get a stat CT head any time if there is change in mental status or patient complains of acute headache. ?EEG ?Frequent neurochecks ?Start antiplatelets with aspirin 81 mg p.o. once daily after 24 hours after TPA if 24-hour repeat CT head did not show any hemorrhage ?Lipitor 80 mg p.o. nightly ?TTE ?LDL 57, TG 386, HbA1c pending ?Hypercoagulable panel ?Recommend 30-day event recorder as outpatient ?Cardiology consult ?Permissive hypertension for at least 24 hours post IV TPA and stroke, treat blood pressure only if systolic blood pressure greater than 180 mmHg ?Stroke risk factors discussed and stroke education provided ?Patient counseled to stop smoking cigarettes and marijuana ?Further medical management per hospitalist team ?PT/OT/ST ?GI/DVT prophylaxis?SCDs and REE almaraz, pharmacological DVT prophylaxis after 24 hours after TPA if 24-hour repeat CT head did not show any hemorrhage ?Follow-up with neurology as outpatient in 2 to 3 weeks ?Please call with questions if any ?Thank you for allowing us to part spent in patient's care and management The note was generated using [employer] dictation software. It may contain incorrect words, spellings and punctuations which were not noted in the review of the chart prior to signing Code Visit Inpatient E&M: 06815 Init Hosp L3
[2019-03-21] MEDS: oxyCODONE 5 MG Tablet PO ×2 (11:30→20:07)
[2019-03-21 11:51] LABS: Bedside Glucose 237 mg/dL (70-110)
[2019-03-21 12:16] LABS: AST(SGOT) 13 U/L (15-37); Alanine Aminotransfer ALT/SGPT 20 U/L (16-61); Albumin, Serum 3.3 g/dL (3.2-5.0); Alkaline Phosphatase 77 U/L (45-117); Bilirubin, Direct 0.08 mg/dL (0.00-0.30); Globulin 3.4 g/dL (2.2-4.2); Protein, Total 6.7 g/dL (6.4-8.2)
--- NOTE | 2019-03-21 13:10 | RAD_ITS ---
STUDY: X-RAY - PELVIS AND LEFT HIP REASON FOR EXAM: Male, 53 years old. Left hip pain. TECHNIQUE: 3 views of the pelvis and left hip. COMPARISON: None. FINDINGS: There is a non-specific bowel gas pattern. Normal visualized soft tissue structures. Normal bilateral iliac wings, sacroiliac joints and visualized sacrum. Normal bilateral superior and inferior pubic rami. Normal pubic symphysis. Normal bilateral ischial tuberosities. Normal visualized femoral head. Normal acetabulum. Normal hip joint. RAD/Hip Min 2 Views (Portable) IMPRESSION: No acute fracture or dislocation of the pelvis and left hip. Left hip pain is not explained. Electronically Signed: Luis Delgado MD at 14:34 EDT , Service support ,
--- NOTE | 2019-03-21 13:16 | CASEMGMT ---
RN CM Note. Attempted to see pt for RN CM assessment. Pt @ MRI. [place] MADRIGALN RN ACM
--- NOTE | 2019-03-21 14:40 | CASEMGMT ---
SW attempted to complete a PHQ-9 with patient as he had a TIA. However, he was in the process of getting an EEG. SW will check back with patient. [place] CASTILLO MSW
[2019-03-21] MEDS: busPIRone 5 MG Tablet PO ×2 (15:23→21:14)
[2019-03-21 15:46] LABS: Bedside Glucose 250 mg/dL (70-110)
[2019-03-21 16:41] LABS: Bedside Glucose 218 mg/dL (70-110)
[2019-03-21] MEDS: Famotidine 20 MG Tablet PO (21:14)
[2019-03-21] MEDS: Atorvastatin Calcium 80 MG Tablet PO (21:14)
[2019-03-21 21:30] LABS: Bedside Glucose 234 mg/dL (70-110)
--- NOTE | 2019-03-21 23:00 | CT_ITS ---
HISTORY: S/P TPA 24 HOURS AGO TECHNIQUE: Multiple axial images were obtained of the brain without intravenous contrast. A radiation dose optimization technique was used for this scan. COMPARISON: MRI of the brain from March 21, 2019, just less than 24 hours earlier FINDINGS: # of images incl. paperwork: 269 Mucuo-serous retention cyst within the posterior inferior aspect of the left maxillary sinus is unchanged. Focal area of loss of bass-white differentiation in decreased density within the right frontal lobe is best seen on the MRI is unchanged.. Brain volume is normal. Bass-white differentiation is preserved. No hydrocephalus. No acute ischemia. No acute intracranial hemorrhage. CT/Brain/Head without Contrast IMPRESSION: No evidence of acute intracranial hemorrhage. Area of encephalomalacia within the right frontal lobe suggestive of. ASPECT 10. Individualized dose optimization techniques were used for this CT. at 0048 Reported and signed by: Roddy Dennis MD Electronically Signed: Roddy Dennis MD at 0:46 EDT Tel , Service support ,
[2019-03-22] VITALS (22 sets, daily range): BP systolic 130–192; BP diastolic 78–131; PULSE 76–103; RESP 7–20; TEMP 36.5–37.5; O2SAT 95–99; BMI 32.8
[2019-03-22] MEDS: oxyCODONE 5 MG Tablet PO ×4 (02:22→19:32)
[2019-03-22 05:11] LABS: Absolute Lymphocyte Count 2.52 X10^3/uL (0.83-4.51); Absolute Neutrophil Count 3.2 X10^3/uL (2.0-7.7); Basophil# 0.04 X10^3/uL; Basophil% 0.6 % (0-1); Eosinophil# 0.15 X10^3/uL; Eosinophils% 2.3 % (0-5); Hematocrit 46.5 % (40-54); Hemoglobin 16.3 g/dL (13.0-16.5); Lymphocyte # 2.52 X10^3/ul (4.0); Lymphocyte % 39.2 % (19-41); Mean Corp Hgb Conc 35.1 g/dL (32-36); Mean Corpuscular Hgb 30.9 pg (27.0-32.0); Mean Corpuscular Volume 88.1 fL (80-94); Mean Platelet Vol. 11.1 fl (6.2-12.0); Monocyte# 0.49 X10^3/uL; Monocyte% 7.6 % (0-10); NRBC Flagged by Analyzer 0 % (0-5); Neutrophil # 3.21 X10^3/uL (2.7-7.7); Platelet Count 147 K/mm3 (150-450); RBC Distribution Width CV 12.5 % (11.6-14.6); RBC Distribution Width SD 40.3 fl (35.1-43.9); Red Blood Count 5.28 M/mm3 (4.6-6.2); White Blood Count 6.4 K/mm3 (4.4-11.0)
[2019-03-22 05:22] LABS: Anion Gap 8 (5-15); BUN 11 mg/dL (7-18); BUN/Creat Ratio 16.3 RATIO (10-20); Calcium,Total 8.9 mg/dL (8.5-10.1); Chloride 106 mmol/L (98-107); Creatinine, Serum 0.67 mg/dL (0.70-1.30); EST Glomerular Filtration Rate 131 mL/min (>60); Est Glom Filt Rate - Afr Amer 158 mL/min (>60); Glucose 210 mg/dL (74-106); Magnesium 1.7 mg/dL (1.6-2.6); Potassium 3.6 mmol/L (3.5-5.1); Sodium Level 141 mmol/L (136-145)
[2019-03-22] MEDS: busPIRone 5 MG Tablet PO ×3 (06:14→22:09)
--- NOTE | 2019-03-22 06:42 | PN_ITS ---
Subjective: The patient was seen and examined at the bedside this morning. Events from the last 24 hours have been reviewed. The patient is currently afebrile, hemodynamically stable and maintaining appropriate oxygen saturations on room air. Nursing staff reported an NIH score of [address] head completed last night revealed no evidence of intracranial hemorrhage. Objective: The patient's most recent lab work, culture data and imaging studies have all been personally reviewed. Plain film hip x-ray revealed no acute fracture or dislocation. Surface echocardiogram revealed mild segmental systolic dysfunction with an ejection fraction of 50%. General: Alert, Cooperative, No apparent distress HEENT: Atraumatic, PERRLA, Normocephalic Oral: No Gingival or Mucosal Lesions/ Ulcerations Neck: Supple, No Nodes, Trachea Midline Lungs: No rhonchi, No wheeze, No rales, Diminished Cardiovascular: Regular rate, Regular Rhythm, Normal S1, Normal S2 Abdomen: Bowel Sounds Present, Soft, Non Tender, Obese Extremities: No clubbing, No cyanosis, No edema Skin: No breakdown Musculoskeletal: No Muscle Wasting Lymphatic: No Cervical, Supraclavicular, or Inguinal Adenopathy Neurological: Neuro grossly intact Psych/Mental Status: Flat Affect Vital Signs Temp Pulse Resp BP Pulse Ox 98.9 F 79 7 L 156/107 H 98 03/22/19 04:00 03/22/19 06:00 03/22/19 06:00 03/22/19 06:00 03/22/19 06:00 Oxygen Flow Rate (L/min) 2 Oxygen Delivery Method Room Air Weight: 227 lb 1.218 oz Body Mass Index (BMI) 32.8 Finger Stick Blood Glucose 234 Intake and Output for Last 24 Hours 03/20/19 03/21/19 03/22/19 23:59 23:59 23:59 Intake Total 567.1 / 807.1 300 / 300 Output Total 2300 / 2850 850 / 850 Balance -1732.9 / -2042.9 -550 / -550 Labs (Last 48 Hours) 03/20/19 03/20/19 03/20/19 22:30 22:30 22:30 WBC 7.2 RBC 4.88 Hgb 15.3 Hct 42.8 MCV 87.7 MCH 31.4 MCHC 35.7 RDW Std Deviation 40.9 RDW Coeff of Chip 12.7 Plt Count 155 MPV 11.2 Immature Gran % (Auto) 0.100 Neut % (Auto) 46.2 L Lymph % (Auto) 43.6 H [place] % (Auto) 7.8 Eos % (Auto) 1.9 Baso % (Auto) 0.4 Absolute Neuts (auto) 3.3 Absolute Lymphs (auto) 3.14 Nucleated RBC % 0 PT 12.6 INR 1.0 APTT 28.2 Protein C Antigen Functional Protein C Prot C Funct Activity Antithrombin III Ag Func Antithrombin III Factor V Leiden Mutat Sodium 141 Potassium 3.5 Chloride 105 Carbon Dioxide 27.0 Anion Gap 9 BUN 12 Creatinine 0.77 Estim Creat Clear Calc 114.56 Est GFR (MDRD) Af Amer 135 Est GFR (MDRD) Non-Af 112 BUN/Creatinine Ratio 15.5 Glucose 228 H Hemoglobin A1c Calcium 8.9 Magnesium Total Bilirubin Direct Bilirubin AST ALT Alkaline Phosphatase Troponin I < 0.015 Total Protein Albumin Globulin Triglycerides Cholesterol LDL Cholesterol VLDL Cholesterol HDL Cholesterol Beta-2-GPI IgG Ab Beta-2-GPI IgA Ab Beta-2-GPI IgM Ab Anti-Cardiolipin IgG Ab Anti-Cardiolipin IgM Ab Factor II DNA Analysis Miscellaneous Test POC Glucose 03/20/19 03/21/19 03/21/19 22:30 01:45 04:00 WBC 7.1 RBC 4.81 Hgb 15.0 Hct 42.9 MCV 89.2 MCH 31.2 MCHC 35.0 RDW Std Deviation 40.9 RDW Coeff of Chip 12.4 Plt Count 151 MPV 10.8 Immature Gran % (Auto) 0.100 Neut % (Auto) 48.1 Lymph % (Auto) 40.4 [place] % (Auto) 8.5 Eos % (Auto) 2.6 Baso % (Auto) 0.3 Absolute Neuts (auto) 3.4 Absolute Lymphs (auto) 2.85 Nucleated RBC % 0 PT INR APTT Protein C Antigen Functional Protein C Prot C Funct Activity Antithrombin III Ag Func Antithrombin III Factor V Leiden Mutat Sodium Potassium Chloride Carbon Dioxide Anion Gap BUN Creatinine Estim Creat Clear Calc Est GFR (MDRD) Af Amer Est GFR (MDRD) Non-Af BUN/Creatinine Ratio Glucose Hemoglobin A1c Calcium Magnesium Total Bilirubin Direct Bilirubin AST ALT Alkaline Phosphatase Troponin I < 0.015 Total Protein Albumin Globulin Triglycerides Cholesterol LDL Cholesterol VLDL Cholesterol HDL Cholesterol Beta-2-GPI IgG Ab Beta-2-GPI IgA Ab Beta-2-GPI IgM Ab Anti-Cardiolipin IgG Ab Anti-Cardiolipin IgM Ab Factor II DNA Analysis Miscellaneous Test POC Glucose 234 H 03/21/19 03/21/19 03/21/19 04:00 04:00 07:57 WBC RBC Hgb Hct MCV MCH MCHC RDW Std Deviation RDW Coeff of Chip Plt Count MPV Immature Gran % (Auto) Neut % (Auto) Lymph % (Auto) [place] % (Auto) Eos % (Auto) Baso % (Auto) Absolute Neuts (auto) Absolute Lymphs (auto) Nucleated RBC % PT INR APTT Protein C Antigen Functional Protein C Prot C Funct Activity Antithrombin III Ag Func Antithrombin III Factor V Leiden Mutat Sodium 144 Potassium 3.4 L Chloride 106 Carbon Dioxide 30.0 Anion Gap 8 BUN 10 Creatinine 0.74 Estim Creat Clear Calc 122.96 Est GFR (MDRD) Af Amer 142 Est GFR (MDRD) Non-Af 117 BUN/Creatinine Ratio 13.5 Glucose 223 H Hemoglobin A1c Calcium 8.9 Magnesium Total Bilirubin 0.40 Direct Bilirubin 0.08 AST 13 L ALT 20 Alkaline Phosphatase 77 Troponin I Total Protein 6.7 Albumin 3.3 Globulin 3.4 Triglycerides 386 H Cholesterol 163 LDL Cholesterol 57 VLDL Cholesterol 77 H HDL Cholesterol 29 L Beta-2-GPI IgG Ab Beta-2-GPI IgA Ab Beta-2-GPI IgM Ab Anti-Cardiolipin IgG Ab Anti-Cardiolipin IgM Ab Factor II DNA Analysis Miscellaneous Test POC Glucose 260 H 03/21/19 03/21/19 03/21/19 11:30 11:30 11:45 WBC RBC Hgb Hct MCV MCH MCHC RDW Std Deviation RDW Coeff of Chip Plt Count MPV Immature Gran % (Auto) Neut % (Auto) Lymph % (Auto) [place] % (Auto) Eos % (Auto) Baso % (Auto) Absolute Neuts (auto) Absolute Lymphs (auto) Nucleated RBC % PT INR APTT Protein C Antigen Pending Functional Protein C Pending Prot C Funct Activity Pending Antithrombin III Ag Pending Func Antithrombin III Pending Factor V Leiden Mutat Pending Sodium Potassium Chloride Carbon Dioxide Anion Gap BUN Creatinine Estim Creat Clear Calc Est GFR (MDRD) Af Amer Est GFR (MDRD) Non-Af BUN/Creatinine Ratio Glucose Hemoglobin A1c 10.0 H Calcium Magnesium Total Bilirubin Direct Bilirubin AST ALT Alkaline Phosphatase Troponin I Total Protein Albumin Globulin Triglycerides Cholesterol LDL Cholesterol VLDL Cholesterol HDL Cholesterol Beta-2-GPI IgG Ab Pending Beta-2-GPI IgA Ab Pending Beta-2-GPI IgM Ab Pending Anti-Cardiolipin IgG Ab Pending Anti-Cardiolipin IgM Ab Pending Factor II DNA Analysis Pending Miscellaneous Test POC Glucose 237 H 03/21/19 03/21/19 03/21/19 13:36 13:39 16:36 WBC RBC Hgb Hct MCV MCH MCHC RDW Std Deviation RDW Coeff of Chip Plt Count MPV Immature Gran % (Auto) Neut % (Auto) Lymph % (Auto) [place] % (Auto) Eos % (Auto) Baso % (Auto) Absolute Neuts (auto) Absolute Lymphs (auto) Nucleated RBC % PT INR APTT Protein C Antigen Functional Protein C Prot C Funct Activity Antithrombin III Ag Func Antithrombin III Factor V Leiden Mutat Sodium Potassium Chloride Carbon Dioxide Anion Gap BUN Creatinine Estim Creat Clear Calc Est GFR (MDRD) Af Amer Est GFR (MDRD) Non-Af BUN/Creatinine Ratio Glucose Hemoglobin A1c Calcium Magnesium Total Bilirubin Direct Bilirubin AST ALT Alkaline Phosphatase Troponin I Total Protein Albumin Globulin Triglycerides Cholesterol LDL Cholesterol VLDL Cholesterol HDL Cholesterol Beta-2-GPI IgG Ab Beta-2-GPI IgA Ab Beta-2-GPI IgM Ab Anti-Cardiolipin IgG Ab Anti-Cardiolipin IgM Ab Factor II DNA Analysis Miscellaneous Test Pending POC Glucose 250 H 218 H 03/21/19 03/22/19 03/22/19 21:23 04:45 04:45 WBC 6.4 RBC 5.28 Hgb 16.3 Hct 46.5 MCV 88.1 MCH 30.9 MCHC 35.1 RDW Std Deviation 40.3 RDW Coeff of Chip 12.5 Plt Count 147 L MPV 11.1 Immature Gran % (Auto) 0.300 Neut % (Auto) 50.0 Lymph % (Auto) 39.2 [place] % (Auto) 7.6 Eos % (Auto) 2.3 Baso % (Auto) 0.6 Absolute Neuts (auto) 3.2 Absolute Lymphs (auto) 2.52 Nucleated RBC % 0 PT INR APTT Protein C Antigen Functional Protein C Prot C Funct Activity Antithrombin III Ag Func Antithrombin III Factor V Leiden Mutat Sodium 141 Potassium 3.6 Chloride 106 Carbon Dioxide 27.0 Anion Gap 8 BUN 11 Creatinine 0.67 L Estim Creat Clear Calc 135.80 Est GFR (MDRD) Af Amer 158 Est GFR (MDRD) Non-Af 131 BUN/Creatinine Ratio 16.3 Glucose 210 H Hemoglobin A1c Calcium 8.9 Magnesium 1.7 Total Bilirubin Direct Bilirubin AST ALT Alkaline Phosphatase Troponin I Total Protein Albumin Globulin Triglycerides Cholesterol LDL Cholesterol VLDL Cholesterol HDL Cholesterol Beta-2-GPI IgG Ab Beta-2-GPI IgA Ab Beta-2-GPI IgM Ab Anti-Cardiolipin IgG Ab Anti-Cardiolipin IgM Ab Factor II DNA Analysis Miscellaneous Test POC Glucose 234 H Clinical Impression(s) from Imaging Studies Brain CT 03/20/19 22:38 IMPRESSION: Stable encephalomalacia within the right frontal lobe, it there is clinical concern for acute infarct MRI brain follow-up could be performed Stable old deep white matter ischemia Mild right chronic mastoid effusion The results were called to and discussed with Physician: Perico Mueller at approximately 11:02 PM 03/20/2019. N.B. : The above information has been verbally conveyed by Perico Lauren MD, on 03/20/2019 23:07:21 (ET). Electronically Signed: Darrell Stanley at 23:09 EDT Tel , Service support , ADDENDUM: 03/20/19 9216 IMPRESSION: Stable encephalomalacia within the right frontal lobe, it there is clinical concern for acute infarct MRI brain follow-up could be performed Stable old deep white matter ischemia Mild right chronic mastoid effusion The results were called to and discussed with Physician: Perico Mueller at approximately 11:02 PM 03/20/2019. N.B. : The above information has been verbally conveyed by Perico Lauren MD, on 03/20/2019 23:07:21 (ET). Electronically Signed: Darrell Stanley at 23:09 EDT Tel , Service support , Head/Neck CTA 03/20/19 22:38 IMPRESSION: Normal CTA neck with contrast. No significant intracerebral stenoses, mild atherosclerotic plaques within the cavernous and internal carotid arteries Significant multilevel spondylosis cervical spine Stable encephalomalacia within the right frontal lobe, stable old small vessel deep white matter ischemic changes Small subcentimeter anterior paratracheal lymph node likely benign Stable right mastoid effusion Electronically Signed: Darrell Stanley at 23:37 EDT Tel , Service support , Chest X-Ray 03/20/19 22:41 IMPRESSION: Stable chest, no acute cardiopulmonary disease. Electronically Signed: Jermaine Ho MD at 23:57 EDT , Service support , Brain MRI 03/21/19 01:21 IMPRESSION: 1. No MRI evidence of acute or subacute ischemic infarct. 2. 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 3. A few small scattered subcortical white matter T2 FLAIR hyperintensity foci are nonspecific. They are presumably chronic white matter ischemic changes. Electronically Signed: Luis Delgado MD at 13:25 EDT , Service support , Lumbar Spine MRI 03/21/19 10:33 Hip X-Ray 03/21/19 13:10 IMPRESSION: No acute fracture or dislocation of the pelvis and left hip. Left hip pain is not explained. Electronically Signed: Luis Delgado MD at 14:34 EDT , Service support , Brain CT 03/21/19 23:00 IMPRESSION: No evidence of acute intracranial hemorrhage. Area of encephalomalacia within the right frontal lobe suggestive of. ASPECT 10. Individualized dose optimization techniques were used for this CT. at 0048 Reported and signed by: Roddy Dennis MD Electronically Signed: Roddy Dennis MD at 0:46 EDT Tel , Service support , Medical Necessity - Tobacco Use Smoking Status: Current every day smoker Tobacco Use: Cigarettes Assessment/Plan All Active Problems (Last Reviewed 02/15/19 @ 08:50 by Debra Brock) Acute embolic stroke (Acute) Stroke (Acute) History of coronary artery stent placement (Resolved 09/2016) Angina pectoris (Resolved) Arterial complication of procedure (Resolved) RECOMMENDATIONS: 1. Continue primary medical management per neurology recommendations. 2. Restart home blood pressure medications. 3. Physical therapy to evaluate patient today. 4. Continue nicotine replacement therapy. IMPRESSIONS: 1. Acute CVA status post TPA administration The patient did receive TPA in the emergency department on the evening of March 20 for suspected ischemic CVA. Neurology is currently following. Follow-up MRI revealed no acute or subacute infarction. Continue medical management per neurology recommendations. Restart home blood pressure medications today. Physical therapy evaluation today. 2. History of coronary artery disease status post PCI Okay to continue statins. Resume home antihypertensive regimen. 3. Continuous tobacco dependency Smoking cessation is strongly advised. Continue nicotine replacement therapy. 4. Diabetes mellitus/hypertension/obesity Complicates care, management, recovery and prognosis. Initiate sliding scale insulin coverage once diet has been advanced. This note was generated with [employer] dictation software. It may contain incorrect words, spelling, and punctuation that were not noted in checking the note before signing. DISPOSITION: The patient is medically stable for transfer out of the intensive care unit. Given the patient's lack of further ICU/pulmonary needs, will sign off. Please call with any additional questions. Code Visit Inpatient E&M: 94945 Subs Hosp L2
--- NOTE | 2019-03-22 07:11 | PN_ITS ---
Patient Problems: Active and Suspected Problems (Last Reviewed 02/15/19 @ 08:50 by Debra Brock) Acute embolic stroke (Acute) Stroke (Acute) Subjective: Patient seen still complains of left hip pain. Imaging studies obtained today prior demonstrated No acute fracture or dislocation of the pelvis and left hip patient blood pressure markedly elevated this morning with systolic greater than 190 Objective: GENERAL: cooperative HEENT: Atraumatic; moist oral mucosa EYES; Anicteric, Normal Conjunctiva NECK; supple, normal thyroid, . RESPIRATORY: Diminished to auscultation bilaterally, CARDIOVASCULAR: Regular S1 S2, GI: soft, non-tender, normoactive bowel sounds, : No Renal angle tenderness; EXTREMITIES: No edema, no clubbing, MUSCULOSKELETAL: No Joint Tenderness; NEURO: Awake; no lateralizing signs. SKIN: No Rash PSYCH; flat affect Vitals/I&O's: Vital Signs Temp Pulse Resp BP Pulse Ox 98.9 F 79 7 L 156/107 H 98 03/22/19 04:00 03/22/19 06:00 03/22/19 06:00 03/22/19 06:00 03/22/19 06:00 Oxygen Flow Rate (L/min) 2 Oxygen Delivery Method Room Air Weight: 103 kg Body Mass Index (BMI) 32.8 Finger Stick Blood Glucose 234 Intake and Output for Last 24 Hours 03/20/19 03/21/19 03/22/19 23:59 23:59 23:59 Intake Total 567.1 / 807.1 300 / 300 Output Total 2300 / 2850 850 / 850 Balance -1732.9 / -2042.9 -550 / -550 Laboratory Results 03/20/19 22:30: POC Glucose 234 H 03/21/19 04:00: Total Bilirubin 0.40, Direct Bilirubin 0.08, AST 13 L, ALT 20, Alkaline Phosphatase 77, Total Protein 6.7, Albumin 3.3, Globulin 3.4 03/21/19 07:57: POC Glucose 260 H 03/21/19 11:30: Protein C Antigen Pending, Functional Protein C Pending, Prot C Funct Activity Pending, Antithrombin III Ag Pending, Func Antithrombin III Pending, Factor V Leiden Mutat Pending, Beta-2-GPI IgG Ab Pending, Beta-2-GPI IgA Ab Pending, Beta-2-GPI IgM Ab Pending, Anti-Cardiolipin IgG Ab Pending, Anti-Cardiolipin IgM Ab Pending, Factor II DNA Analysis Pending 03/21/19 11:30: Hemoglobin A1c 10.0 H 03/21/19 11:45: POC Glucose 237 H 03/21/19 13:36: Miscellaneous Test Pending 03/21/19 13:39: POC Glucose 250 H 03/21/19 16:36: POC Glucose 218 H 03/21/19 21:23: POC Glucose 234 H 03/22/19 04:45: WBC 6.4, RBC 5.28, Hgb 16.3, Hct 46.5, MCV 88.1, MCH 30.9, MCHC 35.1, RDW Std Deviation 40.3, RDW Coeff of Chip 12.5, Plt Count 147 L, MPV 11.1, Immature Gran % (Auto) 0.300, Neut % (Auto) 50.0, Lymph % (Auto) 39.2, [place] % (Auto) 7.6, Eos % (Auto) 2.3, Baso % (Auto) 0.6, Absolute Neuts (auto) 3.2, Absolute Lymphs (auto) 2.52, Nucleated RBC % 0 03/22/19 04:45: Sodium 141, Potassium 3.6, Chloride 106, Carbon Dioxide 27.0, Anion Gap 8, BUN 11, Creatinine 0.67 L, Estim Creat Clear Calc 135.80, Est GFR (MDRD) Af Amer 158, Est GFR (MDRD) Non-Af 131, BUN/Creatinine Ratio 16.3, Glucose 210 H, Calcium 8.9, Magnesium 1.7 Current Medications Atorvastatin Calcium (Lipitor) 80 mg PO QHS [facility] Last Admin: 03/21/19 21:14 Dose: 80 mg Documented by: Bupropion HCl (Wellbutrin Xl) 300 mg PO DAILY [facility] Buspirone HCl (Buspar) 5 mg PO TID [facility] Last Admin: 03/22/19 06:14 Dose: 5 mg Documented by: Carvedilol (Coreg) 6.25 mg PO BIDCM [facility] Last Admin: 03/21/19 15:43 Dose: Not Given Documented by: Dextrose (D50w Syringe) 0 gm IV X1 PRN; Protocol PRN Reason: Hypoglycemia Famotidine (Pepcid) 20 mg PO HS [facility] Last Admin: 03/21/19 21:14 Dose: 20 mg Documented by: Glucagon () 1 mg IM .X1 PRN PRN Reason: Hypoglycemia Sodium Chloride () 250 mls @ 15 mls/hr IV .[id number] PRN PRN Reason: SALINE FLUSH Insulin Glargine (Lantus ([facility])) 22 units SC HS [facility] Last Admin: 03/21/19 21:24 Dose: 22 u Documented by: Insulin Human Lispro (Humalog Kwikpen ([facility])) 0 unit SC ACHS DELIA; Protocol Last Admin: 03/21/19 21:24 Dose: 2 u Documented by: Loratadine (Claritin) 20 mg PO DAILY [facility] Nicotine (Nicoderm Cq ([facility])) 21 mg TRANSDERM. DAILY [facility] Last Admin: 03/21/19 10:26 Dose: 21 mg Documented by: Sodium Chloride () 10 - 40 ml IV UD PRN PRN Reason: SALINE FLUSH Last Admin: 03/21/19 13:47 Dose: 10 ml Documented by: Medical Necessity - Tobacco Use Smoking Status: Current every day smoker Tobacco Use: Cigarettes Assessment/Plan All Active Problems (Last Reviewed 02/15/19 @ 08:50 by Debra Brock) Acute embolic stroke (Acute) Stroke (Acute) History of coronary artery stent placement (Resolved 09/2016) Angina pectoris (Resolved) Arterial complication of procedure (Resolved) Patient is a 53-year-old gentleman admitted with right-sided weakness and right facial droop with slurred speech and confusion. An assessment of acute ischemic CVA was made patient did receive TPA subsequently admitted to the intensive care unit for stabilization 1. Acute ischemic CVA patient admitted to the intensive care unit following a demonstration of TPA. ~Patient NIH score as of 03/21/2019 1 ~No new neurological symptoms; his blood pressure is however markedly elevated 2. Diabetes mellitus type 2 with history of peripheral neuropathy patient is on long-acting insulin continued in addition to Accu-Cheks before meals and at bedtime with sliding scale coverage 3. Dyslipidemia: Patient was previously on statin 4. Hypertension patient blood pressure control not optimal at this stage plan is to restart his home medications in addition to PRN hydralazine 5. CAD with previous stent placement. Patient did complain of intermittent chest pain cardiac enzymes have remained negative to date 6. Diabetic polyneuropathy 7. Tobacco dependence counseled on cessation, offered nicotine patch for tobacco cravings 8. Obesity with BMI of 32.2 9. Hypokalemia corrected per protocol 10. Left hip pain did order routine x-rays for subsequent evaluation 11. DVT prophylaxis SCD's Clinical Impression(s) from Imaging Studies Brain MRI 03/21/19 01:21 IMPRESSION: 1. No MRI evidence of acute or subacute ischemic infarct. 2. 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 3. A few small scattered subcortical white matter T2 FLAIR hyperintensity foci are nonspecific. They are presumably chronic white matter ischemic changes. Electronically Signed: Luis Delgado MD at 13:25 EDT , Service support , Lumbar Spine MRI 03/21/19 10:33 Hip X-Ray 03/21/19 13:10 IMPRESSION: No acute fracture or dislocation of the pelvis and left hip. Left hip pain is not explained. Electronically Signed: Luis Delgado MD at 14:34 EDT , Service support , Brain CT 03/21/19 23:00 IMPRESSION: No evidence of acute intracranial hemorrhage. Area of encephalomalacia within the right frontal lobe suggestive of. ASPECT 10. Individualized dose optimization techniques were used for this CT. at 0048 Reported and signed by: Roddy Dennis MD Electronically Signed: Roddy Dennis MD at 0:46 EDT Tel , Service support , Code Visit Inpatient E&M: [id number] Subs Hosp L3
[2019-03-22] MEDS: Carvedilol 6.25 MG Tablet PO ×2 (08:16→17:34)
[2019-03-22] MEDS: Insulin Lispro 100 UNIT/ML INSULN.PEN SC ×4 (08:22→22:10)
[2019-03-22 08:30] LABS: Bedside Glucose 221 mg/dL (70-110)
[2019-03-22] MEDS: Loratadine 10 MG Tablet 20 MG PO (09:39)
[2019-03-22] MEDS: buPROPion (XL) 300 MG TABLET.XL PO (09:40)
[2019-03-22] MEDS: Clopidogrel Bisulfate 75 MG Tablet PO (09:42)
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
[2019-03-22 10:56] LABS: Bedside Glucose 261 mg/dL (70-110)
--- NOTE | 2019-03-22 11:19 | CASEMGMT ---
RN KRISHNA [employer] CONT[employer] SPECIALIST CM to room to meet with patient for initial transition planning/care coordination assessment. MILTON KELLER introduced self and role at [facility]. Pt voices understanding and consents to assessment at this time. Pt sitting up in recliner chair, in no distress at this time. Pt is A/O at this time and answers all questions appropriately. Care providers, pharmacy, and demographics verified/updated at this time. PCP: [facility]: is supposed to see a repair specialist soon but is not sure if the appt has been made yet. States his fianceBertha usually takes care of his appts. Preferred Pharmacy: [facility] Insurance: [employer] [facility] Prescription Benefit: Yes Living Will/HPOA: Pt does not currently have LW/HCPOA and is interested in talking with SW to complete paperwork. SW, [place], made aware. LNOK: 2 sons: Jesus Morales and Alber Richards. 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 They can't seem to find any documentation showing that I am legally . Living Arrangements: Lives with his fianceBertha. States his 86-yr-old mother also lives with them and they help to take care of her. is independent with ADL's. Bertha does home mgmt tasks including laundry, meals, and cleaning. Bertha also helps with doctor appts. They live in a one-story home w/6 steps to enter. States when his hip is hurting, he does have some difficulty with them. States he is planning on putting a ramp in for his mother and that he can utilize that when needed. Transportation: Pt states drives self and states no transportation concerns at this time. States Stone or one of his sons will drive him home @ d/c. DME: Has a cane and uses it occasionally when his hip is hurting. Has considered getting a W/C for longer distances. Instructed pt to discuss this with his PCP if he decides he wants/needs one in the future. HHC/SNF: No history of either and denies needs. Pt wishes to return home and states has no concerns with going home at time of discharge. States he smokes but is not interested in information on smoking cessation. CM to follow for any discharge planning/needs. Pt voices no further concerns/needs at this time. Advised pt to ask for CM if any further questions/concerns/needs arise. Voices understanding. PLAN: Home with support of fiance and sons and discharge plans in place. Ying HERNANDEZ RN CM
--- NOTE | 2019-03-22 12:23 | CASEMGMT ---
Per RN CM patient wanted to complete Healthcare POA and Healthcare LW. SW went to patient's room to complete documents. He was on his phone and when SW told him why SW was there to talk with him. He told SW he did not want to do them right now. SW check back as able. [place] CASTILLO MSW
--- NOTE | 2019-03-22 13:50 | PN.NEURO_ITS ---
Patient Problems: Active and Suspected Problems (Last Reviewed 02/15/19 @ 08:50 by Debra Brock) Acute embolic stroke (Acute) Stroke (Acute) Subjective: No issues overnight. Patient continues to have left hip pain for, per patient slightly better with the pain medications. MRI brain did not show any acute stroke, MRI L-spine showed prominent left L3-L4 ventral extradural defect causing stenosis of the left lateral recess with posterior displacement of the left L4 nerve root sleeve, smaller right ventral extradural defect at L4-L5 disc level and no displacement of the right L5 nerve root sleeve, minimal degenerative retrolisthesis of L2 on L3. Denies any further syncopal episode, focal motor weakness, headache or dizziness at present. Denies any sensory loss. - Physical Exam General: Alert HEENT: Normocephalic Neck: Supple Lungs: Normal air movement Cardiovascular: Normal S1, Normal S2 Abdomen: Bowel Sounds Present Extremities: No cyanosis Neurological: - - Conscious, alert, CN II through XII grossly intact, power 5 x 5 both upper and lower extremities, no pronator drift, plantar bilateral flexor, no sensory loss, no cerebellar signs, gait deferred, NIHSS 0 at present, mRS 2 at baseline Psych/Mental Status: Normal Affect Vital Signs Temp Pulse Resp BP Pulse Ox 99.5 F H 82 18 143/106 H 96 03/22/19 10:43 03/22/19 10:43 03/22/19 10:43 03/22/19 10:43 03/22/19 10:43 Oxygen Flow Rate (L/min) 2 Oxygen Delivery Method Room Air Weight: 103 kg Body Mass Index (BMI) 32.8 Finger Stick Blood Glucose 234 Intake and Output for Last 24 Hours 03/20/19 03/21/19 03/22/19 23:59 23:59 23:59 Intake Total 567.1 / 807.1 780 / 780 Output Total 2300 / 2850 850 / 850 Balance -1732.9 / -2042.9 -70 / -70 Laboratory Tests Past 24 Hrs 03/21/19 03/22/19 03/22/19 11:30 04:45 04:45 WBC 6.4 RBC 5.28 Hgb 16.3 Hct 46.5 MCV 88.1 MCH 30.9 MCHC 35.1 RDW Std Deviation 40.3 RDW Coeff of Chip 12.5 Plt Count 147 L MPV 11.1 Immature Gran % (Auto) 0.300 Neut % (Auto) 50.0 Lymph % (Auto) 39.2 [place] % (Auto) 7.6 Eos % (Auto) 2.3 Baso % (Auto) 0.6 Absolute Neuts (auto) 3.2 Absolute Lymphs (auto) 2.52 Nucleated RBC % 0 Sodium 141 Potassium 3.6 Chloride 106 Carbon Dioxide 27.0 Anion Gap 8 BUN 11 Creatinine 0.67 L Estim Creat Clear Calc 135.80 Est GFR (MDRD) Af Amer 158 Est GFR (MDRD) Non-Af 131 BUN/Creatinine Ratio 16.3 Glucose 210 H Hemoglobin A1c 10.0 H Calcium 8.9 Magnesium 1.7 POC Glucose 03/22/19 03/22/19 03/21/19 10:47 08:20 21:23 POC Glucose 261 H 221 H 234 H 03/21/19 03/21/19 16:36 13:39 POC Glucose 218 H 250 H Medical Necessity - Tobacco Use Smoking Status: Current every day smoker Tobacco Use: Cigarettes Assessment/Plan All Active Problems (Last Reviewed 02/15/19 @ 08:50 by Debra Brock) Acute embolic stroke (Acute) Stroke (Acute) History of coronary artery stent placement (Resolved 09/2016) Angina pectoris (Resolved) Arterial complication of procedure (Resolved) The patient is a 53 year old M PMH HTN, HLD, DM, DM neuropathy, history of stroke, CAD status post stents, tobacco and marijuana abuse, obesity admitted with syncope and strokelike symptoms. Per patient he had an argument with his mother about selling the house on 03/20/2019, later he had a syncopal episode and was unresponsive, per patient the next thing he remembered was waking up in the ambulance, denies any tongue bite, denies any urinary incontinence, was confused after the event per patient, denies any witnessed seizure, in the ED per ED documentation his initial NIHSS was 8, he was found to have right facial droop and weakness on the right side with slurred speech and confusion, [facility] tele- stroke team was consulted, and it was felt by the [facility] stroke neurologist that patient is a TPA candidate and patient was given IV TPA around 11:30 PM on 03/20/2019. At present patient denies any headache, dizziness, visual disturbances, speech disturbances, focal motor weakness or sensory loss. Per patient he has left hip pain and low back pain, per patient he may use cane for ambulating at home home to the left hip issues and may have intermittent falls because of the same, does drive. Per documentation he is on Plavix at baseline at home. CT head done on admission showed stable and supplementation within the right frontal lobe, nothing acute. CTA head/neck done did not show any hemodynamically significant stenosis or occlusion. Blood pressure admission was 180 x 110 mmHg. Impression Possible TIA?status post IV TPA Syncope Plan ?MRI brain did not show any acute stroke, ?MRI L-spine showed prominent left L3-L4 ventral extradural defect causing stenosis of the left lateral recess with posterior displacement of the left L4 nerve root sleeve, smaller right ventral extradural defect at L4-L5 disc level and no displacement of the right L5 nerve root sleeve, minimal degenerative retrolisthesis of L2 on L3. ?Spine surgery consult as outpatient ?CTA head/neck did not show any hemodynamically segment stenosis or occlusion ?Repeat CT head in 24 hours after IV TPA-no acute hemorrhage. ?EEG-report awaited ?Frequent neurochecks ?On Plavix at baseline ?Lipitor 80 mg p.o. nightly ?TTE-EF 50% normal LA size ?LDL 57, TG 386, HbA1c pending ?Hypercoagulable panel ?Recommend 30-day event recorder as outpatient ?Cardiology consult ?Stroke risk factors discussed and stroke education provided ?Patient counseled to stop smoking cigarettes and marijuana ?Further medical management per hospitalist team ?PT/OT/ST ?GI/DVT prophylaxis ?Follow-up with neurology as outpatient in 2 to 3 weeks ?Please call with questions if any ?Thank you for allowing us to part spent in patient's care and management The note was generated using [employer] dictation software. It may contain incorrect words, spellings and punctuations which were not noted in the review of the chart prior to signing
[2019-03-22] MEDS: hydrALAZINE 20 MG/ML Vial 10 MG IV ×2 (14:18→19:59)
[2019-03-22] MEDS: 0.9% NaCl Peripheral Flush Adult/Peds IV ×2 (14:18→20:00)
[2019-03-22 14:57] LABS: Hemoglobin A1c 10.4 % (4.2-6.3)
--- NOTE | 2019-03-22 15:06 | EEG ---
- Electroencephalogram Date of service 03/21/2019 History EEG is being done in this 53 yr M to rule out seizures EEG Description: This is an 18 channel EEG with 10-20 lead placement system. Bipolar montages, and Referential montages were reviewed. Photic stimulation and Hyperventilation were performed. The posterior dominant rhythm is 9 HZ synchronous, symmetric, reacting to eye opening and closing. Photo stimulation elicited normal driving response but no abnormal photoparoxysmal response, Hyperventilation did not elicit any abnormal photoparoxysmal response. Sleep was identified. There is no abnormal background slowing noted. There was no epileptiform discharges or electrographic seizures noted during this recording. EEG Interpretation This is a normal awake and asleep EEG. There is no epileptiform discharges or electrographic seizures noted during the record.
[2019-03-22 16:36] LABS: Bedside Glucose 243 mg/dL (70-110)
--- NOTE | 2019-03-22 20:19 | NURSING ---
This RN spoke with patient about staying call and not getting so upset. Patient was on phone yelling and cussing. Blood pressure was elevated and relaxation technics were discussed with patient.
[2019-03-22] MEDS: Famotidine 20 MG Tablet PO (22:09)
[2019-03-22] MEDS: Atorvastatin Calcium 80 MG Tablet PO (22:09)
--- NOTE | 2019-03-22 22:10 | NURSING ---
This RN was in patients room when he grabbed his throat and got upset. Patient was breathing with normal respirations and sating at 98% room air. Once patient settled down he explained that he gets muscle spasms on the right side of his neck occasionally. Patient was able to cough, swallow saliva, take a small sip of water and talk normally upon assessment.
[2019-03-22 23:56] LABS: Bedside Glucose 236 mg/dL (70-110)
[2019-03-23 03:00] VITALS: PULSE 93
[2019-03-23 03:03] VITALS: BP 154/78; PULSE 94; RESP 16; TEMP 36.9; O2SAT 96
[2019-03-23] MEDS: oxyCODONE 5 MG Tablet PO ×2 (03:06→08:48)
[2019-03-23] MEDS: busPIRone 5 MG Tablet PO (06:40)
[2019-03-23] MEDS: Insulin Lispro 100 UNIT/ML INSULN.PEN SC ×2 (06:40→12:05)
[2019-03-23 06:45] LABS: Bedside Glucose 239 mg/dL (70-110)
--- NOTE | 2019-03-23 06:54 | NURSING ---
This RN was notified by MED DIR that there was a weight difference, yesterday being 103 kg in ICU and 101.1 kg today on PCU.
[2019-03-23 07:00] LABS: Absolute Lymphocyte Count 2.26 X10^3/uL (0.83-4.51); Absolute Neutrophil Count 4.1 X10^3/uL (2.0-7.7); Basophil# 0.03 X10^3/uL; Basophil% 0.4 % (0-1); Eosinophil# 0.16 X10^3/uL; Eosinophils% 2.2 % (0-5); Hematocrit 49.2 % (40-54); Hemoglobin 17.5 g/dL (13.0-16.5); Lymphocyte # 2.26 X10^3/ul (4.0); Lymphocyte % 31.2 % (19-41); Mean Corp Hgb Conc 35.6 g/dL (32-36); Mean Corpuscular Hgb 30.8 pg (27.0-32.0); Mean Corpuscular Volume 86.6 fL (80-94); Mean Platelet Vol. 10.8 fl (6.2-12.0); Monocyte# 0.65 X10^3/uL; NRBC Flagged by Analyzer 0 % (0-5); Neutrophil # 4.12 X10^3/uL (2.7-7.7); Neutrophil % 56.9 % (47-70); Platelet Count 176 K/mm3 (150-450); RBC Distribution Width CV 12.6 % (11.6-14.6); RBC Distribution Width SD 39.9 fl (35.1-43.9); Red Blood Count 5.68 M/mm3 (4.6-6.2); White Blood Count 7.2 K/mm3 (4.4-11.0)
[2019-03-23 07:24] LABS: Anion Gap 9 (5-15); BUN 14 mg/dL (7-18); BUN/Creat Ratio 15.5 RATIO (10-20); Calcium,Total 9.3 mg/dL (8.5-10.1); Chloride 105 mmol/L (98-107); EST Glomerular Filtration Rate 94 mL/min (>60); Est Glom Filt Rate - Afr Amer 113 mL/min (>60); Glucose 225 mg/dL (74-106); Potassium 3.8 mmol/L (3.5-5.1); Sodium Level 140 mmol/L (136-145)
[2019-03-23 07:25] VITALS: O2SAT 97
[2019-03-23 07:37] VITALS: PULSE 89
[2019-03-23 08:35] VITALS: BMI 32.8
[2019-03-23 08:36] VITALS: BP 145/95; PULSE 89; RESP 16; TEMP 36.9; O2SAT 95
[2019-03-23] MEDS: Carvedilol 6.25 MG Tablet PO (08:44)
[2019-03-23] MEDS: buPROPion (XL) 300 MG TABLET.XL PO (08:44)
[2019-03-23] MEDS: Loratadine 10 MG Tablet 20 MG PO (08:44)
[2019-03-23] MEDS: Clopidogrel Bisulfate 75 MG Tablet PO (08:44)
--- NOTE | 2019-03-23 10:44 | PCM.DC ---
- Discharge Diagnoses Current Active Problems: Current Active and Chronic Problems (Last Reviewed 02/15/19 @ 08:50 by Debra Brock) History of stroke (Chronic) Acute embolic stroke (Acute) Stroke (Acute) You will use the following diet at home:: Calorie/Carbohydrate Controlled (specify 1200, 1400, etc) - 1800, Cardiac Allergies/Adverse Reactions: Allergies No Known Allergies Allergy (Verified 03/14/19 18:25) Medications to take at Discharge Clopidogrel Bisulfate [Plavix] 75 mg PO DAILY 06/11/16 Bupropion HCl [Bupropion Xl] 300 mg PO DAILY 11/09/16 Metformin HCl [Metformin HCl ER] 500 mg PO BID #0 11/08/17 Carvedilol 6.25 mg PO BID 01/09/18 Ranitidine [Zantac] 150 mg PO QHS 01/09/18 busPIRone [Buspar] 5 mg PO TID 01/09/18 Loratadine 20 mg PO DAILY 02/28/18 Insulin Glargine,Hum.rec.anlog [Tammi Olson U-100] 22 unit SQ QHS 02/11/19 Aspirin [Aspirin EC] 81 mg PO DAILY #30 tablet. 03/23/19 Atorvastatin Calcium 40 mg PO DAILY #30 tab 03/23/19 The following prescriptions were given: Aspirin [Aspirin EC] 81 mg PO DAILY #30 tablet. Transmission Status: Pending to [facility]/pharmacy #[id number] Atorvastatin Calcium 40 mg PO DAILY #30 tab Transmission Status: Pending to [facility]/pharmacy #[id number] Primary Care Physician: Trang He MD [Primary Care Provider] - Please follow up with your Primary Care Physician in: IN 5-7 DAYS Test Results: Test results from this visit will be discussed in further detail at your follow-up appointment, if applicable. Proposed Discharge Date: 03/23/19
--- NOTE | 2019-03-23 10:45 | PCM.DC.SUM ---
Discharge Date and Diagnosis - Problem List Patient Problems: Active and Suspected Problems (Last Reviewed 02/15/19 @ 08:50 by Debra Brock) Acute embolic stroke (Acute) Stroke (Acute) Date of Admission: 03/21/19 Date of Discharge: 03/23/19 - Primary Discharge Diagnosis Active and Suspected Problems (Last Reviewed 02/15/19 @ 08:50 by Debra Brock) Acute embolic stroke (Acute) Stroke (Acute) - Secondary Discharge Diagnosis Chronic Problems (Last Reviewed 02/15/19 @ 08:50 by Debra Brock) History of stroke (Chronic) Old myocardial infarction (Chronic) Nicotine dependence (Chronic) Atherosclerosis of coronary artery of [place] heart without angina pectoris (Chronic) Essential (primary) hypertension (Chronic) HLD (hyperlipidemia) (Chronic) Hospital Course and Treatment Imaging Results: Clinical Impression(s) from Imaging Studies Brain CT 03/20/19 22:38 IMPRESSION: Stable encephalomalacia within the right frontal lobe, it there is clinical concern for acute infarct MRI brain follow-up could be performed Stable old deep white matter ischemia Mild right chronic mastoid effusion The results were called to and discussed with Physician: Perico Mueller at approximately 11:02 PM 03/20/2019. N.B. : The above information has been verbally conveyed by Perico Lauren MD, on 03/20/2019 23:07:21 (ET). Electronically Signed: Darrell Stanley, at 23:09 EDT Tel , Service support , ADDENDUM: 03/20/19 4631 IMPRESSION: Stable encephalomalacia within the right frontal lobe, it there is clinical concern for acute infarct MRI brain follow-up could be performed Stable old deep white matter ischemia Mild right chronic mastoid effusion The results were called to and discussed with Physician: Perico Mueller at approximately 11:02 PM 03/20/2019. N.B. : The above information has been verbally conveyed by Perico Lauren MD, on 03/20/2019 23:07:21 (ET). Electronically Signed: Darrell Stanley at 23:09 EDT Tel , Service support , Head/Neck CTA 03/20/19 22:38 IMPRESSION: Normal CTA neck with contrast. No significant intracerebral stenoses, mild atherosclerotic plaques within the cavernous and internal carotid arteries Significant multilevel spondylosis cervical spine Stable encephalomalacia within the right frontal lobe, stable old small vessel deep white matter ischemic changes Small subcentimeter anterior paratracheal lymph node likely benign Stable right mastoid effusion Electronically Signed: Darrell Stanley at 23:37 EDT Tel , Service support , Chest X-Ray 03/20/19 22:41 IMPRESSION: Stable chest, no acute cardiopulmonary disease. Electronically Signed: Jermaine Ho MD at 23:57 EDT , Service support , Brain MRI 03/21/19 01:21 IMPRESSION: 1. No MRI evidence of acute or subacute ischemic infarct. 2. 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 3. A few small scattered subcortical white matter T2 FLAIR hyperintensity foci are nonspecific. They are presumably chronic white matter ischemic changes. Electronically Signed: Luis Delgado MD at 13:25 EDT , Service support , Lumbar Spine MRI 03/21/19 10:33 Hip X-Ray 03/21/19 13:10 IMPRESSION: No acute fracture or dislocation of the pelvis and left hip. Left hip pain is not explained. Electronically Signed: Luis Delgado MD at 14:34 EDT , Service support , Brain CT 03/21/19 23:00 IMPRESSION: No evidence of acute intracranial hemorrhage. Area of encephalomalacia within the right frontal lobe suggestive of. ASPECT 10. Individualized dose optimization techniques were used for this CT. at 0048 Reported and signed by: Roddy Dennis MD Electronically Signed: Roddy Dennis MD at 0:46 EDT Tel , Service support , Operations: None Summary of Care Provided: Patient is a 53-year-old gentleman admitted with right-sided weakness and right facial droop with slurred speech and confusion. An assessment of acute ischemic CVA was made patient did receive TPA subsequently admitted to the intensive care unit for stabilization 1. Acute ischemic CVA patient admitted to the intensive care unit following a administration of TPA. Management protocol. Patient was discharged home 3 days after his admission. He was sent home on dual antiplatelet therapy as well as statin therapy 2. Diabetes mellitus type 2 with history of peripheral neuropathy patient is on long-acting insulin continued in addition to Accu-Cheks before meals and at bedtime with sliding scale coverage 3. Dyslipidemia: Patient was previously on statin 4. Hypertension patient blood pressure control not optimal at this stage plan is to restart his home medications in addition to PRN hydralazine 5. CAD with previous stent placement. Patient did complain of intermittent chest pain cardiac enzymes have remained negative to date 6. Diabetic polyneuropathy 7. Tobacco dependence counseled on cessation, offered nicotine patch for tobacco cravings 8. Obesity with BMI of 32.2 9. Hypokalemia corrected per protocol 10. Left hip pain did order routine x-rays for subsequent evaluation. X-ray came back unremarkable subsequent imaging studies with MRI demonstrated prominent left L3-L4 ventral extradural defect causing stenosis of the left lateral recess with posterior displacement of the L4 nerve root sleeve. Patient was informed of the results and instructed to follow-up with PCP for subsequent referral to spine surgery or neurosurgery. 11. DVT prophylaxis SCD's Patient Problems: Active and Suspected Problems (Last Reviewed 02/15/19 @ 08:50 by Debra Brock) Acute embolic stroke (Acute) Stroke (Acute) Objective: GENERAL: cooperative HEENT: Atraumatic; moist oral mucosa EYES; Anicteric, Normal Conjunctiva NECK; supple, normal thyroid, . RESPIRATORY: Diminished to auscultation bilaterally, CARDIOVASCULAR: Regular S1 S2, GI: soft, non-tender, normoactive bowel sounds, : No Renal angle tenderness; EXTREMITIES: No edema, no clubbing, MUSCULOSKELETAL: No Joint Tenderness; NEURO: Awake; no lateralizing signs. SKIN: No Rash PSYCH; flat affect - Physical Exam Vital Signs Temp Pulse Resp BP Pulse Ox 98.4 F 89 16 145/95 H 95 03/23/19 08:36 03/23/19 08:36 03/23/19 08:36 03/23/19 08:36 03/23/19 08:36 Oxygen Flow Rate (L/min) 2 Oxygen Delivery Method Room Air Weight: 101.1 kg Body Mass Index (BMI) 32.8 Finger Stick Blood Glucose 234 Intake and Output for Last 24 Hours 03/21/19 03/22/19 03/23/19 23:59 23:59 23:59 Intake Total 567.1 / 807.1 1280 / 1760 540 / 540 Output Total 2300 / 2850 850 / 850 Balance -1732.9 / -2042.9 430 / 910 540 / 540 Laboratory Tests Past 24 Hrs 03/22/19 03/23/19 03/23/19 04:45 06:30 06:30 WBC 7.2 RBC 5.68 Hgb 17.5 H Hct 49.2 MCV 86.6 MCH 30.8 MCHC 35.6 RDW Std Deviation 39.9 RDW Coeff of Chip 12.6 Plt Count 176 MPV 10.8 Immature Gran % (Auto) 0.300 Neut % (Auto) 56.9 Lymph % (Auto) 31.2 [place] % (Auto) 9.0 Eos % (Auto) 2.2 Baso % (Auto) 0.4 Absolute Neuts (auto) 4.1 Absolute Lymphs (auto) 2.26 Nucleated RBC % 0 Sodium 140 Potassium 3.8 Chloride 105 Carbon Dioxide 26.0 Anion Gap 9 BUN 14 Creatinine 0.90 Estim Creat Clear Calc 101.10 Est GFR (MDRD) Af Amer 113 Est GFR (MDRD) Non-Af 94 BUN/Creatinine Ratio 15.5 Glucose 225 H Hemoglobin A1c 10.4 H Calcium 9.3 POC Glucose 03/23/19 03/22/19 03/22/19 06:38 22:08 16:31 POC Glucose 239 H 236 H 243 H 03/22/19 10:47 POC Glucose 261 H Discharge Diet: Low fat/ Low Cholesterol, 1800 Calorie Control Diet Discharge Activity: Return to Normal Activity Home Medications: Medications to take at Discharge Clopidogrel Bisulfate [Plavix] 75 mg PO DAILY 06/11/16 Bupropion HCl [Bupropion Xl] 300 mg PO DAILY 11/09/16 Metformin HCl [Metformin HCl ER] 500 mg PO BID #0 11/08/17 Carvedilol 6.25 mg PO BID 01/09/18 Ranitidine [Zantac] 150 mg PO QHS 01/09/18 busPIRone [Buspar] 5 mg PO TID 01/09/18 Loratadine 20 mg PO DAILY 02/28/18 Insulin Glargine,Hum.rec.anlog [Basaglar Kwikpen U-100] 22 unit SQ QHS 02/11/19 Aspirin [Aspirin EC] 81 mg PO DAILY #30 tablet. 03/23/19 Atorvastatin Calcium 40 mg PO DAILY #30 tab 03/23/19 Following Prescrptions Were Given to Patient: Aspirin [Aspirin EC] 81 mg PO DAILY #30 tablet. Transmission Status: Pending to [facility]/pharmacy #[id number] Atorvastatin Calcium 40 mg PO DAILY #30 tab Transmission Status: Pending to [facility]pharmacy #[id number] Primary Care Physician: Trang He MD [Primary Care Provider] - Please follow up with your Primary Care Physician in: [place] 5-7 DAYS Disposition: Home Minutes spent on discharge:: 40 Patient Condition:: Stable Medical Necessity - Tobacco Use Smoking Status: Current every day smoker Tobacco Use: Cigarettes Meaningful Use Info Meaningful Use Diagnoses (Choose all that apply): Ischemic CVA - CVA Therapy Assessed for PT,OT and/or ST?: Yes - Ischemic Stroke Antithrombotic order at d/c?: Yes Dx of Atrial fib/flutter?: No Statins at discharge?: Yes Primary Dx Acute Ischemic CVA?: Yes IV tPA ordered during stay?: Yes Code Visit Inpatient E&M: 76752 Disch Hosp
--- NOTE | 2019-03-23 11:00 | CASEMGMT ---
Late Entry SW attempted to additional times to do advance directives with patient, but he was on his cell phone every time. SW ended up leaving documents with patient. [place] CASTILLO MSW
--- NOTE | 2019-03-23 11:33 | PN.NEURO_ITS ---
Patient Problems: Active and Suspected Problems (Last Reviewed 02/15/19 @ 08:50 by Debra Brock) Acute embolic stroke (Acute) Stroke (Acute) Subjective: No issues overnight. Care discussed with the hospitalist. - Physical Exam General: Alert HEENT: Normocephalic Neck: Supple Lungs: No rhonchi Cardiovascular: Normal S1, Normal S2 Abdomen: Bowel Sounds Present Extremities: No cyanosis Neurological: - - Conscious, alert, CN II through XII grossly intact, power 5 x 5 both upper and lower extremities, no pronator drift, plantar bilateral flexor, no sensory loss, no cerebellar signs, gait deferred, NIHSS 0 at present, mRS 2 at baseline Psych/Mental Status: Normal Affect Vital Signs Temp Pulse Resp BP Pulse Ox 98.4 F 89 16 145/95 H 95 03/23/19 08:36 03/23/19 08:36 03/23/19 08:36 03/23/19 08:36 03/23/19 08:36 Oxygen Flow Rate (L/min) 2 Oxygen Delivery Method Room Air Weight: 101.1 kg Body Mass Index (BMI) 32.8 Finger Stick Blood Glucose 234 Intake and Output for Last 24 Hours 03/21/19 03/22/19 03/23/19 23:59 23:59 23:59 Intake Total 567.1 / 807.1 1280 / 1760 540 / 540 Output Total 2300 / 2850 850 / 850 Balance -1732.9 / -2042.9 430 / 910 540 / 540 Laboratory Tests Past 24 Hrs 03/22/19 03/23/19 03/23/19 04:45 06:30 06:30 WBC 7.2 RBC 5.68 Hgb 17.5 H Hct 49.2 MCV 86.6 MCH 30.8 MCHC 35.6 RDW Std Deviation 39.9 RDW Coeff of Chip 12.6 Plt Count 176 MPV 10.8 Immature Gran % (Auto) 0.300 Neut % (Auto) 56.9 Lymph % (Auto) 31.2 [place] % (Auto) 9.0 Eos % (Auto) 2.2 Baso % (Auto) 0.4 Absolute Neuts (auto) 4.1 Absolute Lymphs (auto) 2.26 Nucleated RBC % 0 Sodium 140 Potassium 3.8 Chloride 105 Carbon Dioxide 26.0 Anion Gap 9 BUN 14 Creatinine 0.90 Estim Creat Clear Calc 101.10 Est GFR (MDRD) Af Amer 113 Est GFR (MDRD) Non-Af 94 BUN/Creatinine Ratio 15.5 Glucose 225 H Hemoglobin A1c 10.4 H Calcium 9.3 POC Glucose 03/23/19 03/22/19 03/22/19 06:38 22:08 16:31 POC Glucose 239 H 236 H 243 H Medical Necessity - Tobacco Use Smoking Status: Current every day smoker Tobacco Use: Cigarettes Assessment/Plan All Active Problems (Last Reviewed 02/15/19 @ 08:50 by Debra Brock) Acute embolic stroke (Acute) Stroke (Acute) History of coronary artery stent placement (Resolved 09/2016) Angina pectoris (Resolved) Arterial complication of procedure (Resolved) The patient is a 53 year old M PMH HTN, HLD, DM, DM neuropathy, history of stroke, CAD status post stents, tobacco and marijuana abuse, obesity admitted with syncope and strokelike symptoms. Per patient he had an argument with his mother about selling the house on 03/20/2019, later he had a syncopal episode and was unresponsive, per patient the next thing he remembered was waking up in the ambulance, denies any tongue bite, denies any urinary incontinence, was confused after the event per patient, denies any witnessed seizure, in the ED per ED documentation his initial NIHSS was 8, he was found to have right facial droop and weakness on the right side with slurred speech and confusion, [facility] tele- stroke team was consulted, and it was felt by the [facility] stroke neurologist that patient is a TPA candidate and patient was given IV TPA around 11:30 PM on 03/20/2019. At present patient denies any headache, dizziness, visual disturbances, speech disturbances, focal motor weakness or sensory loss. Per patient he has left hip pain and low back pain, per patient he may use cane for ambulating at home home to the left hip issues and may have intermittent falls because of the same, does drive. Per documentation he is on Plavix at baseline at home. CT head done on admission showed stable and supplementation within the right frontal lobe, nothing acute. CTA head/neck done did not show any hemodynamically significant stenosis or occlusion. Blood pressure admission was 180 x 110 mmHg. Impression Possible TIA?status post IV TPA Syncope Plan ?MRI brain did not show any acute stroke, ?MRI L-spine showed prominent left L3-L4 ventral extradural defect causing stenosis of the left lateral recess with posterior displacement of the left L4 nerve root sleeve, smaller right ventral extradural defect at L4-L5 disc level and no displacement of the right L5 nerve root sleeve, minimal degenerative retr olisthesis of L2 on L3. ?Spine surgery consult as outpatient ?CTA head/neck did not show any hemodynamically segment stenosis or occlusion ?Repeat CT head in 24 hours after IV TPA-no acute hemorrhage. ?EEG-normal ?Frequent neurochecks ?On Plavix at baseline ?Lipitor 80 mg p.o. nightly ?TTE-EF 50% normal LA size ?LDL 57, TG 386, HbA1c pending ?Hypercoagulable panel ?Recommend 30-day event recorder as outpatient ?Cardiology consult ?Stroke risk factors discussed and stroke education provided ?Patient counseled to stop smoking cigarettes and marijuana ?Further medical management per hospitalist team ?PT/OT/ST ?GI/DVT prophylaxis ?Follow-up with neurology as outpatient in 2 to 3 weeks ?Please call with questions if any ?Thank you for allowing us to part spent in patient's care and management The note was generated using [employer] dictation software. It may contain incorrect words, spellings and punctuations which were not noted in the review of the chart prior to signing
[2019-03-23 12:16] LABS: Bedside Glucose 248 mg/dL (70-110)
--- NOTE | 2019-03-24 13:59 | CM.UR ---
MILTON KELLER DC PHONE CALL DC DATE: 03/23/19 DC Disposition: Home Diagnosis on Discharge: Stroke LACE/STRATA: 06/25 Intro role of CM to patient via phone. Pt states he has not picked up medicaiton yet. MILTON KELLER let him know prescriptions were sent to [facility] in [place]. Pt will sheepskin pickler today. Pt also states Dr. He's office called to make f/u appt but he was not able to answer. Pt states he will return call for f/u. MILTON KELLER stressed importance of taking medications as ordered and f/u with physician. No care improvement suggestions were given. No further questions. Trenton MADRIGALN RN ACM
== END 2019-03-23 12:50 | disposition home or self-care (01) | DRG 62 ==
LOC: ED 03-21 00:15 → ICU 03-21 01:03 → PCU 03-22 10:30
PROVIDERS: Psychiatry & Neurology Neurology; Admitting Provider Family Medicine; Emergency Provider Emergency Medicine; Family Provider Internal Medicine; PCP Internal Medicine; Visit Provider Internal Medicine
DX: I63.9 Cerebral infarction, unspecified (principal); G81.91 Hemiplegia, unspecified affecting right dominant side; I25.2 Old myocardial infarction; I25.10 Atherosclerotic heart disease of native coronary artery without angina pectoris; I10 Essential (primary) hypertension; E78.5 Hyperlipidemia, unspecified; R29.810 Facial weakness; R29.708 NIHSS score 8; R27.0 Ataxia, unspecified; R47.81 Slurred speech; R41.89 Other symptoms and signs involving cognitive functions and awareness; E11.42 Type 2 diabetes mellitus with diabetic polyneuropathy; E66.9 Obesity, unspecified; E87.6 Hypokalemia; M25.552 Pain in left hip; F17.210 Nicotine dependence, cigarettes, uncomplicated; M48.061 Spinal stenosis, lumbar region without neurogenic claudication; Z68.32 Body mass index [BMI] 32.0-32.9, adult; Z79.4 Long term (current) use of insulin; Z95.5 Presence of coronary angioplasty implant and graft; Z79.02 Long term (current) use of antithrombotics/antiplatelets; Z79.899 Other long term (current) drug therapy; Z86.73 Personal history of transient ischemic attack (TIA), and cerebral infarction without residual deficits
CPT/HCPCS: 36415; 51702; 70450; 70496; 70498; 70551; 71045; 72148; 73502; 80048; 80061; 80076; 81240; 81241; 82962; 83036; 83735; 84484; 85025; 85300; 85301; 85302; 85303; 85610; 85730; 86146; 86147; 92523; 92526; 92610; 93005; 93306; 95819; 97802; 99285; J2997; J7030; J7050; Q9957; Q9967; A4216; C8929

== ENCOUNTER 2019-08-01 13:40 | Emergency (ER) | payer MEDICARE, SELFPAY ==
[2019-08-01 13:41] VITALS: BP 117/87; PULSE 87; RESP 16; TEMP 37.1; O2SAT 98; BMI 31.1
--- NOTE | 2019-08-01 13:45 | RAD_ITS ---
STUDY: X-RAY CHEST REASON FOR EXAM: Male, 53 years old. Several day history of cough and shortness of breath. TECHNIQUE: Single AP portable view of the chest. COMPARISON: Comparison is made with prior examination dated March 20, 2019. FINDINGS: Mild increased markings in the lingular segment of the left upper lobe suggestive of early infiltrate. There is no demonstrated pleural abnormality. Normal size heart. Normal mediastinum and sang. Normal visualized pulmonary arteries. Normal visualized aortic arch and descending thoracic aorta. Normal visualized thoracic spine. Normal visualized ribs, clavicles, and shoulders. There is no demonstrated abnormality of the visualized soft tissue structures of the upper abdomen. RAD/Chest 1 View (Portable) IMPRESSION: Findings suggestive of an early lingular infiltrate. Electronically Signed: Jose Manuel Bradford, at 14:23 EST , Service support ,
--- NOTE | 2019-08-01 13:45 | EKG12_ITS ---
Test Reason : CP Blood Pressure : / mmHG Vent. Rate : 086 BPM Atrial Rate : 086 BPM P-R Int : 158 ms QRS Dur : 084 ms QT Int : 370 ms P-R-T Axes : 052 125 084 degrees QTc Int : 442 ms Normal sinus rhythm Possible Right ventricular hypertrophy Abnormal ECG When compared with ECG of 20-MAR-2019 23:23, No significant change was found Confirmed by EDUARDO GIBSON, DEVYN ([id number]), editor dictionary BLANCA EPSTEIN ([id number]) on 08/15/2019 9:54:17 AM Referred By: PREMA Confirmed By:DEVYN CLARK MD
[2019-08-01 13:57] VITALS: BP 117/87; PULSE 87; RESP 16; TEMP 37.1; O2SAT 97; O2SAT 98
[2019-08-01] MEDS: Aspirin 81 MG TAB.CHEW 324 MG PO (14:00)
--- NOTE | 2019-08-01 14:05 | ED.DCSUM_ITS ---
- ER Visit Summary Date of Service: 08/01/19 Chief Complaint: Pain with cough History of Present Illness: The patient is a 53 M 2 CAD with 7 stents, diabetes, high blood pressure, strokes. Patient states last 2 weeks he had been having chest discomfort with a cough and sputum. Been more constant last couple days. Associated with chills but no fever. Green sputum. Not specifically with exertion. Only mild shortness of breath. No hemoptysis. No leg swelling. Physical Examination: Middle-aged male no acute distress vital signs stable afebrile. Pulse ox 98% room air no signs hypoxia. H EENT exam unremarkable. Neck nontender. Lungs few scattered wheezes. Dry cough. No rales or rhonchi. Heart regular rate and rhythm no murmur rate about 85. Chest were nontender. Abdomen soft nontender normal bowel sounds no peritoneal signs. Remedies moves all 4. Calves are nontender without edema or cords. Neurologically is awake and alert with no focal motor deficits. Patient has a hoarse voice consistent with a bronchitis and a upper respiratory infection Test Results: EKG shows a sinus rhythm rate 86 with no acute signs of [place] or ischemia. This x-ray portable shows what appears to be early infiltrate on the left. Consistent with his history and exam of an early pneumonia. CBC normal white count of 6 hemoglobin 16. Chemistries normal normal BUN and creatinine. Leukosis elevated to 40. Troponin is normal. Emergency Department Course and Treatment: He did request something for pain. He will be given for morphine and Zofran to the IV. Repeat exam patient is doing well at 1555. He and I went over all his test. His hoarse voice and cough are consistent with this being a respiratory infection. I do not think this is a cardiac etiology. Be started on Zithromax here and treated with Zithromax Z-JORGE L at home. Treatment Plan: Tylenol Motrin for pain. Zithromax daily for the next 4 days. Follow-up with his doctor. Return if worse. Disposition: Discharge Impression: Acute chest pain Acute left upper lobe pneumonia This note was generated with [employer] dictation software. It may contain incorrect words, spelling, and punctuation that were not noted in review of the chart prior to signing ED Disposition - Plan for ED Patient: Referrals: Trang He MD [Primary Care Provider] -
[2019-08-01 14:06] LABS: Absolute Neutrophil Count 4.1 X10^3/uL (2.0-7.7); Basophil# 0.04 X10^3/uL; Basophil% 0.5 % (0-1); Eosinophil# 0.13 X10^3/uL; Eosinophils% 1.6 % (0-5); Hematocrit 47.3 % (40-54); Hemoglobin 16.7 g/dL (13.0-16.5); Lymphocyte % 40.4 % (19-41); Mean Corp Hgb Conc 35.3 g/dL (32-36); Mean Corpuscular Hgb 30.8 pg (27.0-32.0); Mean Corpuscular Volume 87.3 fL (80-94); Mean Platelet Vol. 11.8 fl (6.2-12.0); Monocyte# 0.56 X10^3/uL; Monocyte% 6.9 % (0-10); NRBC Flagged by Analyzer 0 % (0-5); Neutrophil # 4.12 X10^3/uL (2.7-7.7); Neutrophil % 50.4 % (47-70); Platelet Count 182 K/mm3 (150-450); RBC Distribution Width CV 13.1 % (11.6-14.6); RBC Distribution Width SD 41.4 fl (35.1-43.9); Red Blood Count 5.42 M/mm3 (4.6-6.2); White Blood Count 8.2 K/mm3 (4.4-11.0)
[2019-08-01] MEDS: HYDROcodone Bitartrate/Apap 5/325 Tablet PO (14:18)
[2019-08-01 14:19] LABS: Anion Gap 9 (5-15); BUN 12 mg/dL (7-18); BUN/Creat Ratio 13.3 RATIO (10-20); Calcium,Total 9.6 mg/dL (8.5-10.1); Chloride 105 mmol/L (98-107); EST Glomerular Filtration Rate 93 mL/min (>60); Est Glom Filt Rate - Afr Amer 113 mL/min (>60); Estimated Creatinine Clearance 104.19 ml/min; Glucose 240 mg/dL (74-106); Sodium Level 139 mmol/L (136-145)
[2019-08-01 14:40] VITALS: BP 110/75; PULSE 78; RESP 20; O2SAT 98
[2019-08-01 14:45] VITALS: BP 117/72; PULSE 76; RESP 12; TEMP 37.1; O2SAT 97
[2019-08-01] MEDS: Ondansetron 4 MG/2 ML Vial IV (14:58)
[2019-08-01] MEDS: Morphine 4 MG/ML Syringe IV (14:58)
[2019-08-01 15:00] VITALS: BP 103/84; PULSE 78; RESP 20; TEMP 37.1; O2SAT 98
--- NOTE | 2019-08-01 15:58 | ED.DEP ---
ED Disposition - Plan for ED Patient: Disposition: Home or Assisted Living Instructions: PNEUMONIA (Adult) Prescriptions: Hydrocodone/Acetaminophen [Vicodin 5-300 mg Tablet] 1 - 2 tab PO Q4H PRN PRN 4 Days #10 tab PRN Reason: Pain Or Fever Prescription Printed Azithromycin [Zithromax] 250 mg PO DAILY #4 tab Prescription Printed Referrals: Trang He MD [Primary Care Provider] - 3-5 Days Additional Instructions: Plenty of fluids and rest. Tylenol and/or Motrin for pain. Limited Vicodin for pain. Zithromax antibiotic 1 pill a day starting tomorrow. Follow-up with your doctor to ensure you are improving from your pneumonia.
[2019-08-01] MEDS: Azithromycin 250 MG Tablet 500 MG PO (16:20)
[2019-08-01 16:25] VITALS: BP 101/75; PULSE 75; RESP 12; RESP 16; TEMP 36.9; O2SAT 95
--- NOTE | 2019-08-01 16:27 | ED.RN ---
REVIEWED D/C INSTRUCTIONS, FOLLOW UP CARE, PRESCRIPTIONS, AND S/S THAT WOULD WARRANT A RETURN TO THE ED WITH PT. PT VERBALIZED AN UNDERSTANDING AND DENIES FURTHER QUESTIONS FOR THIS RN. PT SKIN P/W/D, RESP EVEN AND UNLABORED, PT A&O X 3, NO DISTRESS NOTED. PT AMBULATED OUT OF ED, GAIT STEADY.
== END 2019-08-01 16:29 | disposition home or self-care (01) ==
PROVIDERS: Emergency Provider Emergency Medicine; Family Provider Internal Medicine; PCP Internal Medicine
DX: J18.9 Pneumonia, unspecified organism (principal); R07.89 Other chest pain; I25.10 Atherosclerotic heart disease of native coronary artery without angina pectoris; E11.9 Type 2 diabetes mellitus without complications; I10 Essential (primary) hypertension; I25.2 Old myocardial infarction; E78.00 Pure hypercholesterolemia, unspecified; Z86.73 Personal history of transient ischemic attack (TIA), and cerebral infarction without residual deficits; Z95.5 Presence of coronary angioplasty implant and graft; Z79.4 Long term (current) use of insulin; Z79.82 Long term (current) use of aspirin; Z79.02 Long term (current) use of antithrombotics/antiplatelets; Z79.84 Long term (current) use of oral hypoglycemic drugs; Z79.899 Other long term (current) drug therapy; Z72.0 Tobacco use
CPT/HCPCS: 71045; 80048; 84484; 85025; 93005; 96374; 96375; 99285; J2405

== ENCOUNTER 2019-11-02 23:19 | Emergency (ER) | payer MEDICARE, MEDICAID, SELFPAY ==
[2019-11-02 23:19] VITALS: BP 160/115; PULSE 108; RESP 20; TEMP 36.8; O2SAT 97; BMI 31.1
--- NOTE | 2019-11-02 23:27 | EKG12_ITS ---
Test Reason : CP Blood Pressure : / mmHG Vent. Rate : 096 BPM Atrial Rate : 096 BPM P-R Int : 154 ms QRS Dur : 088 ms QT Int : 364 ms P-R-T Axes : 017 114 084 degrees QTc Int : 459 ms Normal sinus rhythm Inferior-posterior infarct , age undetermined Abnormal ECG Confirmed by DANIEL GIBSON, MARIAM ([id number]), editor at large BLANCA EPSTEIN ([id number]) on 11/03/2019 1:15:37 PM Referred By: YADIRA Confirmed By:WADE SANCHEZ MD
--- NOTE | 2019-11-02 23:28 | ED.VISSUMM ---
- ER Visit Summary Date of Service: 11/02/19 Chief Complaint: Short of breath chest pain cough History of Present Illness: The patient is a 54 M who has shortness of breath, chest pain and cough. Started earlier today. He states he is in a cough is productive the sputum all day. His shortness of breath gets worse with exertion and better with rest. He has sharp pains on his chest that does get worse throughout the day at times. He denies fevers. No relevant travel history. Denies getting a flu shot this year. He does have history of coronary artery disease and has 7 stents in his heart. He is on aspirin and Plavix. He stopped smoking earlier this year. Physical Examination: Vital signs reviewed. HEENT exam unremarkable. Heart is regular rate and rhythm without murmurs. Lungs have diffuse expiratory wheezing. Abdomen is soft and nontender. Extremities reveal no edema. Skin exam normal. Neurologic exam normal. Test Results: EKG is normal sinus rhythm with a rate of 96. No ST changes. Chest x-ray unremarkable. Laboratory studies unremarkable except for glucose of 330. Emergency Department Course and Treatment: Patient was given albuterol and morphine. His lung sounds are now clear. He is having more sharp chest wall pain. Feel that this is likely musculoskeletal. He has had pain throughout the day and he has a negative troponin. He likely has a bronchitis as well. I will treat him with prednisone and naproxen at home. I do not feel he requires antibiotics at this time. He will continue [id number] medications as well. He will call his doctor tomorrow for follow-up. Treatment Plan: [] Disposition: Discharge Impression: Acute bronchitis, chest wall pain This note was generated with [employer] dictation software. It may contain incorrect words, spelling, and punctuation that were not noted in review of the chart prior to signing ED Disposition - Plan for ED Patient: Disposition: Home or Assisted Living Instructions: BRONCHITIS, No Antibiotic (Adult) Prescriptions: RX: Prednisone [Deltasone] 40 mg PO DAILY #8 tab Transmission Status: Pending to [facility] RX: Naproxen [Naprosyn] 500 mg PO BID PRN #20 tab Transmission Status: Pending to [facility] Referrals: Trang He MD [Primary Care Provider] -
[2019-11-02 23:43] VITALS: PULSE 91; RESP 22
[2019-11-02] MEDS: Albuterol 2.5 MG/3 ML VIAL.NEB. INHALATION (23:43)
[2019-11-02 23:47] VITALS: BP 127/90; PULSE 98; RESP 17; TEMP 36.3; O2SAT 99
[2019-11-02 23:48] LABS: Absolute Lymphocyte Count 3.34 X10^3/uL (0.83-4.51); Absolute Neutrophil Count 3.5 X10^3/uL (2.0-7.7); Basophil# 0.03 X10^3/uL; Basophil% 0.4 % (0-1); Eosinophil# 0.16 X10^3/uL; Eosinophils% 2.1 % (0-5); Hematocrit 42.8 % (40-54); Hemoglobin 15.3 g/dL (13.0-16.5); Lymphocyte # 3.34 X10^3/ul (4.0); Lymphocyte % 43.5 % (19-41); Mean Corp Hgb Conc 35.7 g/dL (32-36); Mean Corpuscular Hgb 30.4 pg (27.0-32.0); Mean Corpuscular Volume 85.1 fL (80-94); Mean Platelet Vol. 11.2 fl (6.2-12.0); Monocyte# 0.65 X10^3/uL; Monocyte% 8.5 % (0-10); NRBC Flagged by Analyzer 0 % (0-5); Neutrophil # 3.49 X10^3/uL (2.7-7.7); Neutrophil % 45.4 % (47-70); Platelet Count 172 K/mm3 (150-450); RBC Distribution Width CV 12.7 % (11.6-14.6); RBC Distribution Width SD 38.6 fl (35.1-43.9); Red Blood Count 5.03 M/mm3 (4.6-6.2); White Blood Count 7.7 K/mm3 (4.4-11.0)
[2019-11-02 23:51] VITALS: O2SAT 98
--- NOTE | 2019-11-02 23:59 | RAD_ITS ---
STUDY: X-RAY CHEST REASON FOR EXAM: Male, 54 years old. SOB, COUGH, CP TECHNIQUE: PA and lateral COMPARISON: 08/01/2019 FINDINGS: The lungs are clear and expanded. There is no demonstrated pleural abnormality. Normal size heart. Normal mediastinum and sang. Normal visualized pulmonary arteries. Normal visualized aortic arch and descending thoracic aorta. Normal visualized thoracic spine. Normal visualized ribs, clavicles, and shoulders. There is no demonstrated abnormality of the visualized soft tissue structures of the upper abdomen. RAD/Chest PA and Lateral IMPRESSION: Negative x-ray examination of the chest. No interval change. Electronically Signed: Rubio Badillo, at 0:59 EDT Tel , Service support ,
[2019-11-03 00:21] LABS: BNP,B-Type NATRIURETIC PEPTIDE 50.7 pg/mL (0-100)
[2019-11-03 00:26] LABS: Anion Gap 9 (5-15); BUN 15 mg/dL (7-18); BUN/Creat Ratio 15.4 RATIO (10-20); Calcium,Total 9.1 mg/dL (8.5-10.1); Chloride 102 mmol/L (98-107); Creatinine, Serum 0.98 mg/dL (0.70-1.30); EST Glomerular Filtration Rate 85 mL/min (>60); Est Glom Filt Rate - Afr Amer 103 mL/min (>60); Estimated Creatinine Clearance 94.58 ml/min; Glucose 330 mg/dL (74-106); Potassium 3.9 mmol/L (3.5-5.1); Sodium Level 136 mmol/L (136-145)
[2019-11-03 00:34] VITALS: BP 130/103; PULSE 106; RESP 19; O2SAT 96
[2019-11-03] MEDS: Morphine 4 MG/ML Syringe IV (00:34)
[2019-11-03 01:31] VITALS: BP 130/103; PULSE 106; RESP 16; O2SAT 96
[2019-11-03] MEDS: predniSONE 20 MG Tablet 40 MG PO (01:32)
[2019-11-03] MEDS: Ketorolac 30 MG/ML Syringe IV (01:32)
== END 2019-11-03 01:48 | disposition home or self-care (01) ==
PROVIDERS: Emergency Provider Emergency Medicine; PCP Internal Medicine
DX: J20.9 Acute bronchitis, unspecified (principal); R07.89 Other chest pain; I25.10 Atherosclerotic heart disease of native coronary artery without angina pectoris; Z87.891 Personal history of nicotine dependence; Z95.5 Presence of coronary angioplasty implant and graft; Z79.82 Long term (current) use of aspirin; Z79.02 Long term (current) use of antithrombotics/antiplatelets
CPT/HCPCS: 71046; 80048; 83880; 84484; 85025; 93005; 94640; 96374; 96375; 99284; A4216

== ENCOUNTER 2019-11-15 20:08 | Observation (INO) | payer MEDICARE, MEDICAID, SELFPAY ==
[2019-11-15] VITALS (7 sets, daily range): BP systolic 111–158; BP diastolic 74–137; PULSE 86–110; RESP 16–19; TEMP 36.5–36.9; O2SAT 96–97; BMI 32.4; BMI 31.4; BMI 31.5
--- NOTE | 2019-11-15 20:16 | EKG12_ITS ---
Test Reason : CP Blood Pressure : / mmHG Vent. Rate : 109 BPM Atrial Rate : 109 BPM P-R Int : 160 ms QRS Dur : 088 ms QT Int : 342 ms P-R-T Axes : 063 122 075 degrees QTc Int : 460 ms Sinus tachycardia Inferior-posterior infarct , age undetermined Abnormal ECG Confirmed by EDUARDO GIBSON, DEVYN ([id number]), editor news WILLEM IGNACIO ([id number]) on 11/16/2019 1:43:09 PM Referred By: DC Confirmed By:DEVYN CLARK MD
--- NOTE | 2019-11-15 20:22 | RAD_ITS ---
STUDY: X-RAY CHEST REASON FOR EXAM: Male, 54 years old. Chest pain. TECHNIQUE: Single AP portable view of the chest. COMPARISON: November 03, 2019. FINDINGS: Minimally decreased inspiratory effort when compared to prior study. There is no infiltrate or mass. There is no demonstrated pleural abnormality. Normal size heart. Normal mediastinum and sang. Normal visualized pulmonary arteries. Normal visualized aortic arch and descending thoracic aorta. The thoracic spine is obscured by the mediastinum. Normal visualized ribs, clavicles, and shoulders. There is no demonstrated abnormality of the visualized soft tissue structures of the upper abdomen. RAD/Chest 1 View (Portable) IMPRESSION: No acute cardiopulmonary disease or interval change. Electronically Signed: Silverio Lee DO at 20:44 EDT Tel [phone], Service support ,
[2019-11-15] MEDS: Aspirin 81 MG TAB.CHEW 324 MG PO (20:28)
[2019-11-15 20:30] LABS: Absolute Lymphocyte Count 2.77 X10^3/uL (0.83-4.51); Absolute Neutrophil Count 4.5 X10^3/uL (2.0-7.7); Basophil# 0.04 X10^3/uL; Basophil% 0.5 % (0-1); Eosinophil# 0.15 X10^3/uL; Eosinophils% 1.9 % (0-5); Hematocrit 42.7 % (40-54); Hemoglobin 15.3 g/dL (13.0-16.5); Lymphocyte # 2.77 X10^3/ul (4.0); Lymphocyte % 34.4 % (19-41); Mean Corp Hgb Conc 35.8 g/dL (32-36); Mean Corpuscular Hgb 31.4 pg (27.0-32.0); Mean Corpuscular Volume 87.7 fL (80-94); Mean Platelet Vol. 11.6 fl (6.2-12.0); Monocyte# 0.62 X10^3/uL; Monocyte% 7.7 % (0-10); NRBC Flagged by Analyzer 0 % (0-5); Neutrophil # 4.46 X10^3/uL (2.7-7.7); Neutrophil % 55.3 % (47-70); Platelet Count 157 K/mm3 (150-450); RBC Distribution Width CV 12.7 % (11.6-14.6); RBC Distribution Width SD 40.2 fl (35.1-43.9); Red Blood Count 4.87 M/mm3 (4.6-6.2); White Blood Count 8.1 K/mm3 (4.4-11.0)
[2019-11-15] MEDS: Morphine 4 MG/ML Syringe IV (20:33)
[2019-11-15 20:40] LABS: International Normalized Ratio 0.9; Prothrombin Time (Protime)PT. 12.4 SECONDS (11.7-14.9)
[2019-11-15 20:41] LABS: Partial Thromboplast Time 25.6 Seconds (24.1-36.2)
[2019-11-15 20:45] LABS: Anion Gap 9 (5-15); BUN 14 mg/dL (7-18); BUN/Creat Ratio 15.8 RATIO (10-20); Calcium,Total 9.4 mg/dL (8.5-10.1); Chloride 102 mmol/L (98-107); Creatinine, Serum 0.88 mg/dL (0.70-1.30); EST Glomerular Filtration Rate 95 mL/min (>60); Est Glom Filt Rate - Afr Amer 115 mL/min (>60); Estimated Creatinine Clearance 105.33 ml/min; Glucose 366 mg/dL (74-106); Potassium 3.6 mmol/L (3.5-5.1); Sodium Level 137 mmol/L (136-145)
[2019-11-15] MEDS: HYDROmorphone 1 MG/ML Syringe IV (21:16)
--- NOTE | 2019-11-15 21:25 | ED.DCSUM_ITS ---
- ER Visit Summary Date of Service: 11/15/19 Chief Complaint: Chest pain History of Present Illness: The patient is a 54 M with chest pain increasing throughout the day today. Worse with activity, working outside, playing with his dog. Associate with nausea and a possible syncopal episode. History of cor onary disease. He had a cardiac catheterization about [address] Sigala showed patent stents. Physical Examination: Afebrile and vital signs unremarkable. Alert and orie nted. No acute distress. Heart regular. Lungs clear. Skin appears normal. Calves soft and supple. Pulses strong and equal. Test Results: EKG showed sinus rhythm at a rate of 109. No sign of acute ischemia or infarction pattern. CBC, chemistry panel, troponin unremarkable except for glucose of 366. Chest x-ray was normal. Emergency Department Course and Treatment: EKG was performed. Patient was placed on a monitor. With aspirin and morphine. Heart score was a 4. His last stress test was in 2016 and he had a cardiac catheterization in October 2017. Given his symptoms, history, heart score, hospitalist was contacted for admission. Treatment Plan: As above Disposition: PCU observation Impression: Chest pain This note was generated with [employer] dictation software. It may contain incorrect words, spelling, and punctuation that were not noted in review of the chart prior to signing ED Disposition - Plan for ED Patient: Referrals: Trang He MD [Primary Care Provider] -
--- NOTE | 2019-11-15 21:30 | PCM.HP.STD ---
Problem List (1) History of stroke Status: Chronic (2) Acute embolic stroke Status: Chronic (3) Stroke Status: Chronic (4) Old myocardial infarction Status: Chronic (5) History of coronary artery stent placement Status: Resolved Comment: PCI-BREANNE-OM2; PCI-BREANNE x 2 Distal and Prox RCA; PCI-Cutting Balloon Angioplasty -ISR OM2 09/2016 (6) Nicotine dependence Status: Chronic (7) Atherosclerosis of coronary artery of [place] heart without angina pectoris Status: Chronic (8) Essential (primary) hypertension Status: Chronic (9) HLD (hyperlipidemia) Status: Chronic Qualifiers: (10) Chest pain Status: Acute History of Present Illness Date of Admission: 11/15/19 Chief Complaint: Chest pain and possible syncope The patient is a 54 year old M with history of acute embolic stroke for which he was admitted in March 2019 came to ER with chest pain that started about 11 AM while he was working in his yard for half an hour. He describes chest pain retrosternal, maximum 8-10 intensity, with radiation to right posterior lateral chest, left upper extremity, fingers with numbness associated with shortness of breath. This persisted the whole day and got better to 2-3/10 intensity after sublingual nitro. Patient also said he might have passed out for a few minutes while he was playing with his dogs. It was unwitnessed. He denies any fall. Patient had cardiac cath about 2 years ago and was found EF 45%, about diagonal 1 proximal severe disease in a small vessel, 50% septal, 50% circumflex, previously placed stent in mid circumflex patent and patent RCA stent. Patient was administered aspirin 324 mg and 1 dose of morphine 4 mg and 1 mg Dilaudid. In ED, EKG shows sinus tachycardia at 109 bpm. No significant change from previous EKG of November 10 2019 which shows normal sinus rhythm with possible RVH.. Past Medical History Past Medical History (Chronic Problems): Chronic Problems (Last Reviewed 02/15/19 @ 08:50 by Debra Brock) History of stroke (Chronic) Acute embolic stroke (Chronic) Stroke (Chronic) Old myocardial infarction (Chronic) Nicotine dependence (Chronic) Atherosclerosis of coronary artery of [place] heart without angina pectoris (Chronic) Essential (primary) hypertension (Chronic) HLD (hyperlipidemia) (Chronic) Medical History: Medical History (Last Reviewed 02/15/19 @ 08:50 by Debra Brock) Old myocardial infarction (Chronic) I25.2 Nicotine dependence (Chronic) F17.200 Atherosclerosis of coronary artery of [place] heart without angina pectoris (Chronic) I25.10 Essential (primary) hypertension (Chronic) I10 HLD (hyperlipidemia) (Chronic) E78.5 CVA (cerebral vascular accident) I63.9 Diabetic retinopathy E11.319 GERD (gastroesophageal reflux disease) K21.9 Obesity (BMI 30.0-34.9) E66.9 Type 2 diabetes mellitus E11.9 Mental status alteration R41.82 Allergies No Known Allergies Allergy (Verified 11/15/19 20:14) Home Medications: Ambulatory Orders Medication Instructions Recorded Clopidogrel Bisulfate [Plavix] 75 mg PO DAILY 06/11/16 Bupropion HCl [Bupropion Xl] 300 mg PO DAILY 11/09/16 Carvedilol 6.25 mg PO BID 01/09/18 Ranitidine [Zantac] 150 mg PO QHS 01/09/18 busPIRone [Buspar] 5 mg PO TID 01/09/18 Loratadine 10 mg PO DAILY 02/28/18 Insulin Glargine,Hum.rec.anlog 22 unit SQ QHS 02/11/19 [Basaglar Kwikpen U-100] Aspirin [Aspirin EC] 81 mg PO DAILY #30 tablet. 03/23/19 Atorvastatin Calcium 40 mg PO DAILY #30 tab 03/23/19 Lisinopril [Zestril] 10 mg PO DAILY 08/01/19 Metformin HCl 500 mg PO BID 11/15/19 Pantoprazole Sodium [Protonix] 40 mg PO DAILY 11/15/19 Surgical History: Surgical History (Last Reviewed 02/15/19 @ 08:50 by Debra Brock) History of coronary artery stent placement (Resolved) Onset Date: 09/2016 Z95.5 PCI-BREANNE-OM2; PCI-BREANNE x 2 Distal and Prox RCA; PCI-Cutting Balloon Angioplasty -ISR OM2 09/2016 History of elbow surgery Z98.890 History of left heart catheterization Onset Date: 11/08/17 Z98.890 Surgical History: angioplasty - coronary stent, - - LUE surgery, PCI, T+A. Psychiatric History: No pertinent psych hx Smoking Status: Light Smoker (<10/day) - *Family History Sibling Family History: Family History (Last Reviewed 02/15/19 @ 08:50 by Debra Brock) Other Diabetes Heart disease Hypertension Myocardial infarction History Items: Heart Disease - Brother w/ CAD/ME in his 50s, fatal. Maternal Family History: Family History (Last Reviewed 02/15/19 @ 08:50 by Debra Brock) Other Diabetes Heart disease Hypertension Myocardial infarction History Items: Diabetes, - Paternal Family History: Family History (Last Reviewed 02/15/19 @ 08:50 by Debra Brock) Other Diabetes Heart disease Hypertension Myocardial infarction History Items: Diabetes, High Cholesterol, Heart Disease - CAD s/p ME in his 50s., Hypertension, - - diabetes, heart disease Review of Systems Constitutional: Denies: Chills, Fever, Weight Change HEENT: Denies: Head Aches, Sinus Congestion, Sinus Drainage Cardiovascular: Reports: Chest Pain, Chest Pressure. Denies: Palpitations Respiratory: Reports: Shortness of Breath, Shortness of breath upon exertion. Denies: Cough, Shortness of breath at rest, Sputum production Gastrointestinal: Denies: Abdominal Pain, Nausea, Vomiting Genitourinary: Reports: Frequency, Urgency. Denies: Dysuria Musculoskeletal: Reports: Joint Pain. Denies: Joint Tenderness Skin: Denies: Rash, Wounds Neurological: Denies: Numbness, Tingling, Focal weakness Psychiatric: Denies: Anxiety, Depression, Homicidal Ideations, Suicidal Ideations Hematologic/ Lymphatic: Denies: Easy Bruising, Easy Bleeding VTE Information - Inpt Only VTE Present on Admission: No VTE Mechan Device Prophylaxis: SCD's VTE Pharm Prophylaxis ordered?: Yes Patient Problems: Active and Suspected Problems (Last Reviewed 02/15/19 @ 08:50 by Debra Brock) Chest pain (Acute) - Physical Exam Vitals/I&O's: Vital Signs Temp Pulse Resp BP Pulse Ox 98.4 F 90 19 H 111/74 97 11/15/19 20:09 11/15/19 21:12 11/15/19 21:12 11/15/19 21:12 11/15/19 21:12 Oxygen Flow Rate (L/min) 2 Oxygen Delivery Method Nasal Cannula Weight: 239 lb 6.752 oz Body Mass Index (BMI) 32.4 Finger Stick Blood Glucose 234 General: Alert, Oriented x3, Cooperative HEENT: Atraumatic, PERRLA, EOMI, Normocephalic Neck: Supple, No JVD, Negative Carotid Bruits Lungs: Clear to auscultation, No rhonchi, No wheeze, No rales, Diminished Cardiovascular: Regular rate, Regular Rhythm, Normal S1, Normal S2, No murmurs Abdomen: Bowel Sounds Present, Soft, Non Tender, Non-Distended Extremities: No edema, Capillary Refill Less than 3 Seconds Skin: No rashes, No breakdown Musculoskeletal: No Tenderness to Palpation of Joints or Extremities, Arthritic Changes Neurological: Cranial nerves II-XII grossly intact, Deep Tendon Reflexes 2+/4 and Symmetrical, Neuro grossly intact Psych/Mental Status: Normal Affect, Appropriate Laboratory Results 11/15/19 20:17: WBC 8.1, RBC 4.87, Hgb 15.3, Hct 42.7, MCV 87.7, MCH 31.4, MCHC 35.8, RDW Std Deviation 40.2, RDW Coeff of Chip 12.7, Plt Count 157, MPV 11.6, Immature Gran % (Auto) 0.200, Neut % (Auto) 55.3, Lymph % (Auto) 34.4, Gentry % (Auto) 7.7, Eos % (Auto) 1.9, Baso % (Auto) 0.5, Absolute Neuts (auto) 4.5, Absolute Lymphs (auto) 2.77, Nucleated RBC % 0 11/15/19 20:17: PT 12.4, INR 0.9, APTT 25.6 11/15/19 20:17: Sodium 137, Potassium 3.6, Chloride 102, Carbon Dioxide 26.0, Anion Gap 9, BUN 14, Creatinine 0.88, Estim Creat Clear Calc 105.33, Est GFR (MDRD) Af Amer 115, Est GFR (MDRD) Non-Af 95, BUN/Creatinine Ratio 15.8, Glucose 366 H, Calcium 9.4, Troponin I < 0.015 Assessment/Plan All Active Problems (Last Reviewed 02/15/19 @ 08:50 by Debra Brock) Chest pain (Acute) History of coronary artery stent placement (Resolved 09/2016) Angina pectoris (Resolved) Arterial complication of procedure (Resolved) The patient is a 54 year old M with history of acute embolic stroke for which he was admitted in March 2019 came to ER with chest pain that started about 11 AM while he was working in his yard for half an hour an unwitnessed syncope Patient had cardiac cath in October 2017 and was found EF 45%, about diagonal 1 proximal severe disease in a small vessel, 50% septal, 50% circumflex, previously placed stent in mid circumflex patent and patent RCA stent. Patient was administered aspirin 324 mg and 1 dose of morphine 4 mg and 1 mg Dilaudid. In ED, EKG shows sinus tachycardia at 109 bpm. No significant change from previous EKG of November 10 2019 which shows normal sinus rhythm with possible RVH. First troponin negative 1. Atypical chest pain, with possible unwitnessed syncope rule out acute coronary syndrome: Patient is being admitted in PCU. Serial troponin enzymes. Repeat EKG. Treadmill nuclear stress test tomorrow a.m. Patient on aspirin, clopidogrel, lisinopril, carvedilol and atorvastatin which are continued. Patient recovered from syncope awake without recollection of what happened. 2. Moderate coronary artery disease status post stents: Patient had 2D echo and echo February 2019 as described below. Suggestive of mild systolic heart failure, chronic in nature. Patient does not have signs and symptoms suggestive of acute exacerbation of chronic heart failure. Echo in February 2019 Mild segmental systolic dysfunction (see wall motion). The estimated ejection fraction is 50 %. Trivial mitral valve insufficiency. Trivial tricuspid valve insufficiency. Unable to estimate RV systolic pressure/pulmonary artery pressure due to technically difficult study. Diastolic function is indeterminate. 3. Diabetes mellitus type 2 with uncontrolled hyperglycemia, complicated with peripheral neuropathy: Glucose 366. A1c for tomorrow a.m. ordered. Accu-Chek before meals and at bedtime and cover with Hem-o-javier sliding scale. Patient home dose of Lantus continued. Titrate insulin as per Accu-Cheks. 4. Dyslipidemia: On atorvastatin. Fasting profile for tomorrow a.m. 5. Hypertension: Blood pressure 111/24, 141/95. On lisinopril and carvedilol. 6. Tobacco dependence counseled on cessation, offered nicotine patch for tobacco cravings 7. Obesity with BMI of 32.5 DVT prophylaxis: Lovenox 40 mils subcu daily. Advanced directive: After discussion of different options, patient elected full code. Patient does want artificial life support including intubation, tube feed, ventilator and/chest compression. Total time spent in [id number] encounter in discussion of advanced directive 16 minutes. Laboratory Results 11/15/19 20:17: WBC 8.1, RBC 4.87, Hgb 15.3, Hct 42.7, MCV 87.7, MCH 31.4, MCHC 35.8, RDW Std Deviation 40.2, RDW Coeff of Chip 12.7, Plt Count 157, MPV 11.6, Immature Gran % (Auto) 0.200, Neut % (Auto) 55.3, Lymph % (Auto) 34.4, Gentry % (Auto) 7.7, Eos % (Auto) 1.9, Baso % (Auto) 0.5, Absolute Neuts (auto) 4.5, Absolute Lymphs (auto) 2.77, Nucleated RBC % 0 11/15/19 20:17: PT 12.4, INR 0.9, APTT 25.6 11/15/19 20:17: Sodium 137, Potassium 3.6, Chloride 102, Carbon Dioxide 26.0, Anion Gap 9, BUN 14, Creatinine 0.88, Estim Creat Clear Calc 105.33, Est GFR (MDRD) Af Amer 115, Est GFR (MDRD) Non-Af 95, BUN/Creatinine Ratio 15.8, Glucose 366 H, Calcium 9.4, Troponin I < 0.015 Clinical Impression(s) from Imaging Studies Chest X-Ray 11/15/19 20:22 IMPRESSION: No acute cardiopulmonary disease or interval change. OBSV E&M: 96461 Initial observation care L3 Procedures: [id number] Advncd Care Plan 30 Min
--- NOTE | 2019-11-15 21:32 | ED.RN ---
PT c/o chest pain has returned. MD aware, medication ordered and given. PT states he felt relief with Dilaudid. PT notified by MD that he will be admitted.
--- NOTE | 2019-11-15 22:30 | EKG12_ITS ---
Test Reason : AM EKG Blood Pressure : / mmHG Vent. Rate : 079 BPM Atrial Rate : 079 BPM P-R Int : 166 ms QRS Dur : 096 ms QT Int : 406 ms P-R-T Axes : 055 119 096 degrees QTc Int : 465 ms Normal sinus rhythm Inferior-posterior infarct , age undetermined Abnormal ECG When compared with ECG of 15-NOV-2019 22:50, MANUAL COMPARISON REQUIRED, DATA IS UNCONFIRMED Confirmed by EDUARDO GIBSON, DEVYN ([id number]), legal editor NADINE FOWLER ([id number]) on 11/21/2019 9:32:24 AM Referred By: RAOUL Confirmed By:DEVYN CLARK MD
[2019-11-15 22:44] LABS: Magnesium 1.8 mg/dL (1.6-2.6)
[2019-11-15] MEDS: Famotidine 20 MG Tablet PO (23:39)
[2019-11-15 23:51] LABS: Bedside Glucose 294 mg/dL (70-110)
[2019-11-15] MEDS: 0.9% Normal Saline 1,000 ML 75 ML IV (23:59)
[2019-11-15] MEDS: 0.9% Saline Lock 10 ML Syringe IV (23:59)
[2019-11-16] MEDS: Insulin Lispro 100 UNIT/ML INSULN.PEN SC ×2 (00:02→11:58)
[2019-11-16] MEDS: Clopidogrel Bisulfate 75 MG Tablet PO ×2 (00:34→06:28)
[2019-11-16 03:14] VITALS: PULSE 80
[2019-11-16 04:40] VITALS: BP 105/67; PULSE 77; RESP 18; TEMP 36.4; O2SAT 94
[2019-11-16] MEDS: Morphine 2 MG/ML Syringe IV (04:48)
[2019-11-16] MEDS: proMETHazine 25 MG/ML Syringe 12.5 MG IV (04:49)
--- NOTE | 2019-11-16 04:54 | NURSING ---
Pt. refusing to do orthostatic VS at this time. He is feeling nauseated and his CP is 8/10. Morphine and phenergan given and oxygen 2L NC applied. Will monitor.
--- NOTE | 2019-11-16 05:30 | EKG12_ITS ---
Test Reason : CP ADMISSION Blood Pressure : / mmHG Vent. Rate : 087 BPM Atrial Rate : 087 BPM P-R Int : 164 ms QRS Dur : 088 ms QT Int : 372 ms P-R-T Axes : 036 121 082 degrees QTc Int : 447 ms Normal sinus rhythm Normal ECG When compared with ECG of 15-NOV-2019 20:15, MANUAL COMPARISON REQUIRED, DATA IS UNCONFIRMED Confirmed by EDUARDO GIBSON, DEVYN ([id number]), make up editor NADINE FOWLER ([id number]) on 11/21/2019 9:32:34 AM Referred By: RAOUL Confirmed By:DEVYN CLARK MD
[2019-11-16 05:56] LABS: Bacteria 0 SEEN /hpf (None Seen); Mucous, Urine 0 SEEN /hpf (<or=2+); Red Blood Cells-Urine 0 SEEN /hpf (0-5); Squamous Epithelial Cells - UA 0 SEEN /hpf (0-5)
[2019-11-16 05:59] LABS: Color, Urine Yellow (Yellow); Glucose, Dipstick 1000 mg/dl (Normal); Ketone-Dipstick Negative (Negative); Leukocyte Esterase-Dipstick Negative /ul (Negative); Nitrite-Dipstick Negative (Negative); Occult Blood-Urine 10 /ul (Negative); Protein-Dipstick 30 mg/dl (Negative); Urine Bilirubin Dipstick Negative (Negative); Urine Clarity Sl. Cloudy (Clear); Urine Urobilinogen Normal (Normal)
[2019-11-16] MEDS: Aspirin E.C. 81 MG Tablet PO (06:28)
[2019-11-16 06:32] LABS: Cholesterol 223 mg/dL (200); High Density Lipoprotein 29 mg/dL; Thyroid Stim Hormone (TSH) 1.76 uIU/mL (0.358-3.74); Triglycerides 975 mg/dL
[2019-11-16 06:38] VITALS: BP 99/63; PULSE 77; PULSE 81
[2019-11-16 06:40] LABS: Bedside Glucose 281 mg/dL (70-110)
--- NOTE | 2019-11-16 06:41 | NURSING ---
Pt. taken off unit for stress test.
[2019-11-16 06:49] LABS: White Blood Cells 0-5 SEEN /hpf (0-5)
[2019-11-16 07:16] LABS: Hemoglobin A1c 11.5 % (4.2-6.3)
--- NOTE | 2019-11-16 09:00 | STRESSREP ---
Stress Test Report Pharmacologic myocardial perfusion stress test. 54-year-old male with a history of previous angioplasty and stenting. Stress protocol: Resting EKG demonstrates normal sinus rhythm with a rate of 81 bpm resting blood pressure is 114/76 mmHg. 0.4 mg of regadenoson was infused per usual protocol followed by Intravenous saline flush injection continuous EKG monitoring was performed. The maximum heart rate attained was 107 bpm which was 67% of maximum predicted heart rate the maximum workload was 1 metabolic equivalent. At rest there were no ST or T wave changes noted to suggest abnormal flow reserve at peak infusion nonspecific ST-T wave changes were noted but do not suggest any evidence of ischemia. The final blood pressure was 108/68 mmHg. Myocardial perfusion protocol. 15.0 mCi of technetium 99m sestamibi was injected at rest. 0.4 mg of regadenoson was infused per usual protocol peak infusion 45.0 mCi of technetium 99m sestamibi was injected stress images were obtained stress and rest images were reconstructed and compared in the short axis vertical long horizontal long axis. Gated images were also obtained. Perfusion SPECT analysis: Review of the stress images demonstrate a medium size defect noted involving the inferior lateral wall on the stress and resting images. The above is suggestive of a previous infarct in this area. No obvious ischemia is noted. A tiny minimal mattie-infarct ischemic zone cannot be completely excluded. The septum anterior wall and basal lateral wall appear to be well perfused. Gated SPECT analysis: The gated ejection fraction is 54%. Conclusion: Pharmacologic myocardial perfusion stress test with evidence of inferior lateral infarct noted. No obvious ischemia is present.
[2019-11-16 09:35] VITALS: BP 105/71; PULSE 80; RESP 16; TEMP 36.8; O2SAT 97
[2019-11-16] MEDS: oxyCODONE 5 MG Tablet PO (09:36)
[2019-11-16] MEDS: buPROPion (XL) 300 MG TABLET.XL PO (09:36)
[2019-11-16] MEDS: Lisinopril 10 MG Tablet PO (09:36)
[2019-11-16] MEDS: Carvedilol 6.25 MG Tablet PO (09:37)
[2019-11-16] MEDS: Pantoprazole Sodium 40 MG Tablet PO (09:37)
[2019-11-16] MEDS: Loratadine 10 MG Tablet PO (09:37)
[2019-11-16] MEDS: Atorvastatin Calcium 80 MG Tablet PO (09:38)
--- NOTE | 2019-11-16 11:40 | DCINST_ITS ---
- Discharge Diagnoses Current Active Problems: Current Active and Chronic Problems (Last Reviewed 02/15/19 @ 08:50 by Debra Brock) Chest pain (Acute) You will use the following diet at home:: Cardiac Your food should be the consistency of: Regular Your liquids should be the consistency of: Regular/Thin Discharge Activity: Return to Normal Activity Weight Bearing Status: Weight bearing as tolerated Call your doctor if you observe: Fever of 101 or Higher Instructions: What Is Angina?, Understanding Food and Cholesterol, Lifestyle Changes to Control Cholesterol, Understanding Your Cholesterol Numbers, Your Heart is at Risk Allergies/Adverse Reactions: Allergies No Known Allergies Allergy (Verified 11/15/19 20:14) Medications to take at Discharge Clopidogrel Bisulfate [Plavix] 75 mg PO DAILY 06/11/16 Carvedilol 6.25 mg PO BID 01/09/18 Ranitidine [Zantac] 150 mg PO QHS 01/09/18 Loratadine 10 mg PO DAILY 02/28/18 Insulin Glargine,Hum.rec.anlog [Kaseyaglcarmen Olson U-100] 22 unit SQ QHS 02/11/19 Aspirin [Aspirin EC] 81 mg PO DAILY #30 tablet. 03/23/19 Lisinopril [Zestril] 10 mg PO DAILY 08/01/19 Atorvastatin Calcium 80 mg PO DAILY 11/15/19 Metformin HCl 500 mg PO BID 11/15/19 Pantoprazole Sodium [Protonix] 40 mg PO DAILY 11/15/19 Icosapent Ethyl [Vascepa] 1 gm PO BID #60 cap 11/16/19 The following prescriptions were given: Icosapent Ethyl [Vascepa] 1 gm PO BID #60 cap Transmission Status: Received by [facility] Primary Care Physician: Trang He MD [Primary Care Provider] - Please follow up with your Primary Care Physician in: one week Test Results: Test results from this visit will be discussed in further detail at your follow- up appointment, if applicable. Proposed Discharge Date: 11/16/19
[2019-11-16 12:00] LABS: Bedside Glucose 239 mg/dL (70-110)
[2019-11-16 12:04] LABS: Lipase 95 U/L (73-393)
--- NOTE | 2019-11-16 13:33 | DS.PCM_ITS ---
Discharge Date and Diagnosis - Problem List Patient Problems: Active and Suspected Problems (Last Reviewed 02/15/19 @ 08:50 by Debra Brock) Chest pain (Acute) Date of Admission: 11/15/19 Date of Discharge: 11/16/19 - Primary Discharge Diagnosis Active and Suspected Problems (Last Reviewed 02/15/19 @ 08:50 by Debra Brock) Chest pain (Acute) - Secondary Discharge Diagnosis Chronic Problems (Last Reviewed 02/15/19 @ 08:50 by Debra Brock) History of stroke (Chronic) Acute embolic stroke (Chronic) Stroke (Chronic) Old myocardial infarction (Chronic) Nicotine dependence (Chronic) Atherosclerosis of coronary artery of [place] heart without angina pectoris (Chronic) Essential (primary) hypertension (Chronic) HLD (hyperlipidemia) (Chronic) Hospital Course and Treatment Imaging Results: 11/16/19 05:55 Nuclear Stress Test - Chemical [NM] Routine Operations: None Procedures: Nuclear stress test Summary of Care Provided: The patient is a 54 year old M with a past medical history as outlined was admitted with a complaint of chest pain. Pain was retrosternal rated about 8 out of 10 and radiated to the right side of his chest and left upper extremity with assisted shortness of breath. He thinks he may have passed out a few minutes while he was playing with his dogs but it was unwitnessed. He therefore came into the ED was admitted and managed for chest pain rule out ACS. EKG done showed sinus tachycardia with no acute ST changes. He was put on aspirin. He had a stress test on 11/16/2019 which showed evidence of inferior lateral infarct which was old but no evidence of acute ischemia. Labs done however showed markedly elevated triglycerides of 975 and cholesterol of 223. HDL was 29. Patient was on statin which was continued at 80 mg nightly. He was also started on Vascepa 1gram bid and counseled to be compliant with the statin and the sleep and to follow-up with his primary care doctor for monitoring of his elevated triglycerides. Of note, lipase was checked and it was normal. He remained stable and was discharged home on 11/16/2019. 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 Patient seen and examined prior to discharge. He had no complaints. Still complained of mild chest pain but had improved markedly. Review systems otherwise negative. Labs and vitals reviewed. Home medication reviewed and reconciled. Patient Problems: Active and Suspected Problems (Last Reviewed 02/15/19 @ 08:50 by Debra Brock) Chest pain (Acute) - Physical Exam Vitals/I&O's: Vital Signs Temp Pulse Resp BP Pulse Ox 98.3 F 80 16 105/71 97 11/16/19 09:35 11/16/19 09:35 11/16/19 09:35 11/16/19 09:35 11/16/19 09:35 Oxygen Flow Rate (L/min) 2 Oxygen Delivery Method Room Air Weight: 231 lb 14.821 oz Body Mass Index (BMI) 31.4 Finger Stick Blood Glucose 234 Intake and Output for Last 24 Hours 11/14/19 11/15/19 11/16/19 23:59 23:59 23:59 Intake Total 240 / 240 961.25 / 961.25 Output Total 600 / 600 400 / 400 Balance -360 / -360 561.25 / 561.25 General: Alert, Oriented x3, Cooperative, No apparent distress HEENT: Atraumatic, PERRLA, EOMI, Normocephalic Oral: Moist Mucosa Neck: Supple, No JVD, Negative Carotid Bruits Lungs: Clear to auscultation, Normal air movement, No rhonchi, No wheeze, No rales Cardiovascular: Regular rate, Regular Rhythm, Normal S1, Normal S2, No murmurs Abdomen: Bowel Sounds Present, Soft, Non Tender, Non-Distended, No Hepato- splenomegaly Extremities: No edema, Capillary Refill Less than 3 Seconds Skin: No rashes, No breakdown Musculoskeletal: No Tenderness to Palpation of Joints or Extremities Lymphatic: No Cervical, Supraclavicular, or Inguinal Adenopathy Neurological: Cranial nerves II-XII grossly intact, Neuro grossly intact, Motor Exam 5/5 strength throughout Psych/Mental Status: Normal Affect, Appropriate, Alert and oriented to time, place, person, mood and affect Laboratory Results 11/15/19 20:17: WBC 8.1, RBC 4.87, Hgb 15.3, Hct 42.7, MCV 87.7, MCH 31.4, MCHC 35.8, RDW Std Deviation 40.2, RDW Coeff of Chip 12.7, Plt Count 157, MPV 11.6, Immature Gran % (Auto) 0.200, Neut % (Auto) 55.3, Lymph % (Auto) 34.4, Carver % (Auto) 7.7, Eos % (Auto) 1.9, Baso % (Auto) 0.5, Absolute Neuts (auto) 4.5, Absolute Lymphs (auto) 2.77, Nucleated RBC % 0 11/15/19 20:17: PT 12.4, INR 0.9, APTT 25.6 11/15/19 20:17: Sodium 137, Potassium 3.6, Chloride 102, Carbon Dioxide 26.0, Anion Gap 9, BUN 14, Creatinine 0.88, Estim Creat Clear Calc 105.33, Est GFR (MDRD) Af Amer 115, Est GFR (MDRD) Non-Af 95, BUN/Creatinine Ratio 15.8, Glucose 366 H, Calcium 9.4, Troponin I < 0.015 11/15/19 20:17: Magnesium 1.8 11/15/19 23:27: POC Glucose 294 H 11/15/19 23:29: Troponin I < 0.015 11/16/19 02:18: Troponin I < 0.015 11/16/19 05:16: Triglycerides 975 H, Cholesterol 223 H, LDL Cholesterol TNP, VLDL Cholesterol TNP, HDL Cholesterol 29 L, TSH 1.76 11/16/19 05:16: Hemoglobin A1c 11.5 H 11/16/19 05:16: Lipase 95 11/16/19 05:47: Urine Color Yellow, Urine Clarity Sl. Cloudy, Urine pH 5.0, Ur Specific [place] 1.020, Urine Protein 30 H, Urine Glucose (UA) 1000 H, Urine Ketones Negative, Urine Occult Blood 10 H, Urine Nitrite Negative, Urine Bilirubin Negative, Urine Urobilinogen Normal, Ur Leukocyte Esterase Negative, Urine RBC 0 SEEN, Urine WBC 0-5 SEEN, Ur Squamous Epith Cells 0 SEEN, Urine Bacteria 0 SEEN, Urine Mucus 0 SEEN 11/16/19 06:30: POC Glucose 281 H 11/16/19 11:54: POC Glucose 239 H Diagnostic Data Chest X-Ray 11/15/19 20:22 IMPRESSION: No acute cardiopulmonary disease or interval change. Electronically Signed: Silverio Lee DO at 20:44 EDT Tel [phone], Service support , Current Medications Acetaminophen (Tylenol) 650 mg PO Q6H PRN PRN PRN Reason: Pain Score 1-10/Temp > 100.7 F Al Hydroxide/Mg Hydroxide (Mylanta Ii) 30 ml PO Q6H PRN PRN PRN Reason: Gastric Burning Albuterol Sulfate (Ventolin Aerosols) 2.5 mg INHALATION Q2H PRN PRN PRN Reason: SOB/Wheezing Aspirin (Ecotrin) 81 mg PO DAILY [facility] Last Admin: 11/16/19 06:28 Dose: 81 mg Documented by: Atorvastatin Calcium (Lipitor) 80 mg PO QHS [facility] Last Admin: 11/16/19 09:38 Dose: 80 mg Documented by: Bupropion HCl (Wellbutrin Xl) 300 mg PO DAILY [facility] Last Admin: 11/16/19 09:36 Dose: 300 mg Documented by: Buspirone HCl (Buspar) 5 mg PO TID [facility] Last Admin: 11/16/19 06:15 Dose: Not Given Documented by: Carvedilol (Coreg) 6.25 mg PO BID [facility] Last Admin: 11/16/19 09:37 Dose: 6.25 mg Documented by: Clopidogrel Bisulfate (Plavix) 75 mg PO DAILY [facility] Last Admin: 11/16/19 06:28 Dose: 75 mg Documented by: Dextrose (D50w Syringe) 0 gm IV X1 PRN; Protocol PRN Reason: Hypoglycemia Enoxaparin Sodium (Lovenox) 40 mg SC DAILY [facility] Last Admin: 11/16/19 10:25 Dose: Not Given Documented by: Famotidine (Pepcid) 20 mg PO QHS [facility] Last Admin: 11/15/19 23:39 Dose: 20 mg Documented by: Glucagon () 1 mg IM .X1 PRN PRN Reason: Hypoglycemia Sodium Chloride () 1,000 mls @ 75 mls/hr IV .[id number] [facility] Last Infusion: 11/16/19 13:24 Dose: Infused Documented by: Sodium Chloride () 250 mls @ 15 mls/hr IV .[id number] PRN PRN Reason: Saline Flush Sodium Chloride () 250 mls @ 15 mls/hr IV .[id number] PRN PRN Reason: Additional IVPB Infusion Insulin Glargine (Lantus (Bkc)) 22 units SC QHS [facility] Last Admin: 11/15/19 23:39 Dose: 22 units Documented by: Insulin Human Lispro (Humalog Kwikpen (Bkc)) 0 unit SC [facility]; Protocol Last Admin: 11/16/19 11:58 Dose: 6 units Documented by: Lisinopril (Zestril) 10 mg PO DAILY [facility] Last Admin: 11/16/19 09:36 Dose: 10 mg Documented by: Loratadine (Claritin) 10 mg PO DAILY [facility] Last Admin: 11/16/19 09:37 Dose: 10 mg Documented by: Morphine Sulfate () 2 mg IV Q3H PRN PRN PRN Reason: Pain Score 6-1010 Last Admin: 11/16/19 04:48 Dose: 2 mg Documented by: Nitroglycerin (Nitrostat) 0.4 mg SUBLINGUAL Q5M PRN PRN Reason: CARDIAC/CHEST PAIN Oxycodone HCl (Oxyir) 5 mg PO Q4H PRN PRN PRN Reason: Pain Score 4-5/10 Last Admin: 11/16/19 09:36 Dose: 5 mg Documented by: Pantoprazole Sodium (Protonix) 40 mg PO DAILY [facility] Last Admin: 11/16/19 09:37 Dose: 40 mg Documented by: Prochlorperazine Edisylate (Compazine Iv) 5 mg IV Q4H PRN PRN PRN Reason: Breakthrough Nausea/Vomiting Promethazine HCl (Phenergan) 12.5 mg IV Q4H PRN PRN PRN Reason: NAUSEA/VOMITING Last Admin: 11/16/19 04:49 Dose: 12.5 mg Documented by: Senna/Docusate Sodium (Senokot-S, Fe-Colace) 2 tablet PO BID PRN PRN PRN Reason: Constipation Sodium Chloride () 10 - 40 ml IV UD PRN PRN Reason: SALINE FLUSH Last Admin: 11/15/19 23:59 Dose: 10 ml Documented by: Discharge Diet: Low fat/ Low Cholesterol Discharge Activity: Return to Normal Activity Weight Bearing Status: Weight bearing as tolerated Call your doctor if you observe: Fever of 101 or Higher Home Medications: Medications to take at Discharge Clopidogrel Bisulfate [Plavix] 75 mg PO DAILY 06/11/16 Carvedilol 6.25 mg PO BID 01/09/18 Ranitidine [Zantac] 150 mg PO QHS 01/09/18 Loratadine 10 mg PO DAILY 02/28/18 Insulin Glargine,Hum.rec.anlog [Kaseyaglcarmen Olson U-100] 22 unit SQ QHS 02/11/19 Aspirin [Aspirin EC] 81 mg PO DAILY #30 tablet. 03/23/19 Lisinopril [Zestril] 10 mg PO DAILY 08/01/19 Atorvastatin Calcium 80 mg PO DAILY 11/15/19 Metformin HCl 500 mg PO BID 11/15/19 Pantoprazole Sodium [Protonix] 40 mg PO DAILY 11/15/19 Icosapent Ethyl [Vascepa] 1 gm PO BID #60 cap 11/16/19 Following Prescrptions Were Given to Patient: Icosapent Ethyl [Vascepa] 1 gm PO BID #60 cap Transmission Status: Received by [facility] Primary Care Physician: Trang He MD [Primary Care Provider] - Please follow up with your Primary Care Physician in: one week Patient Instructions: What Is Angina?, Understanding Food and Cholesterol, Lifestyle Changes to Control Cholesterol, Understanding Your Cholesterol Numbers, Your Heart is at Risk Disposition: Home Minutes spent on discharge:: 35 Patient Condition:: Stable Medical Necessity - Tobacco Use Smoking Status: Former smoker Meaningful Use Info Meaningful Use Diagnoses (Choose all that apply): None applicable OBSV E&M: 36610 Observation care discharge
--- NOTE | 2019-11-16 14:19 | PHA.DC.MR ---
Pharmacy Service has performed discharge medication reconciliation for this patient. The patient's discharge medication list was reviewed for discrepancies and discrepancies were resolved. Home Medications Clopidogrel Bisulfate [Plavix] 75 mg PO DAILY 06/11/16 Carvedilol 6.25 mg PO BID 01/09/18 Ranitidine [Zantac] 150 mg PO QHS 01/09/18 Loratadine 10 mg PO DAILY 02/28/18 Insulin Glargine,Hum.rec.anlog [Tammi Olson U-100] 22 unit SQ QHS 02/11/19 Aspirin [Aspirin EC] 81 mg PO DAILY #30 tablet. 03/23/19 Lisinopril [Zestril] 10 mg PO DAILY 08/01/19 Atorvastatin Calcium 80 mg PO DAILY 11/15/19 Metformin HCl 500 mg PO BID 11/15/19 Pantoprazole Sodium [Protonix] 40 mg PO DAILY 11/15/19 Icosapent Ethyl [Vascepa] 1 gm PO BID #60 cap 11/16/19
== END 2019-11-16 11:42 | disposition home or self-care (01) ==
LOC: ED 20:26 → PCU 21:44
PROVIDERS: Admitting Provider Internal Medicine; Emergency Provider Emergency Medicine; PCP Internal Medicine; Visit Provider Student in an Organized Health Care Education/Training Program
DX: R07.89 Other chest pain (principal); R11.0 Nausea; I25.2 Old myocardial infarction; I25.10 Atherosclerotic heart disease of native coronary artery without angina pectoris; E78.5 Hyperlipidemia, unspecified; I10 Essential (primary) hypertension; R00.0 Tachycardia, unspecified; K21.9 Gastro-esophageal reflux disease without esophagitis; E11.65 Type 2 diabetes mellitus with hyperglycemia; E11.42 Type 2 diabetes mellitus with diabetic polyneuropathy; R39.15 Urgency of urination; R06.02 Shortness of breath; E11.319 Type 2 diabetes mellitus with unspecified diabetic retinopathy without macular edema; E66.9 Obesity, unspecified; Z71.3 Dietary counseling and surveillance; Z95.5 Presence of coronary angioplasty implant and graft; Z79.899 Other long term (current) drug therapy; Z79.02 Long term (current) use of antithrombotics/antiplatelets; Z79.82 Long term (current) use of aspirin; Z79.4 Long term (current) use of insulin; Z68.32 Body mass index [BMI] 32.0-32.9, adult; Z87.891 Personal history of nicotine dependence
CPT/HCPCS: 36415; 71045; 78452; 80048; 80061; 81001; 82962; 83036; 83690; 83735; 84443; 84484; 85025; 85610; 85730; 87086; 93005; 93017; 96361; 96374; 96375; 96376; 99218; 99285; A9500; J7030; A4216; G0378; J2785

== ENCOUNTER 2019-12-03 19:31 | Inpatient (IN) | payer MEDICARE, MEDICAID, SELFPAY ==
[2019-11-15 22:35] VITALS: BMI 31.4
[2019-12-03] VITALS (12 sets, daily range): BP systolic 77–115; BP diastolic 48–81; PULSE 88–104; RESP 13–26; TEMP 36.1–36.4; O2SAT 90–97; BMI 32.5; BMI 30.5
--- NOTE | 2019-12-03 19:34 | EKG12_ITS ---
Test Reason : CP Blood Pressure : / mmHG Vent. Rate : 101 BPM Atrial Rate : 101 BPM P-R Int : 144 ms QRS Dur : 090 ms QT Int : 354 ms P-R-T Axes : 047 135 086 degrees QTc Int : 459 ms Sinus tachycardia Inferior-posterior infarct , age undetermined Abnormal ECG Confirmed by DEVYN CLARK MD ([id number]), assistant production editor WILLEM IGNACIO ([id number] on 12/06/2019 8:46:01 AM Referred By: AYLIN Confirmed By:DEVYN CLARK MD
--- NOTE | 2019-12-03 19:34 | RAD_ITS ---
STUDY: X-RAY CHEST REASON FOR EXAM: Male, 54 years old. SOB, WEAKNESS, NEAR SYNCOPE AND CHEST PAIN TECHNIQUE: Single AP portable view of the chest. COMPARISON: Prior study of 11/15/2019 FINDINGS: monitoring analyst leads are present. The lungs are clear and expanded. There is no demonstrated pleural abnormality. Normal size heart. Normal mediastinum and sang. Normal visualized pulmonary arteries. Normal visualized aortic arch and descending thoracic aorta. Normal visualized thoracic spine. Normal visualized ribs, clavicles, and shoulders. There is no demonstrated abnormality of the visualized soft tissue structures of the upper abdomen. RAD/Chest 1 View (Portable) IMPRESSION: Normal x-ray examination of the chest. Electronically Signed: Miguel Schroeder MD at 20:46 EDT , Service support ,
--- NOTE | 2019-12-03 19:54 | ED.VISSUMM ---
- ER Visit Summary Date of Service: 12/03/19 Chief Complaint: Chest and rib pain with nausea and vomiting History of Present Illness: The patient is a 54 M with extensive past medical history of prior stroke, CAD, NE with multiple cardiac stents on Plavix and aspirin. Also history of diabetes and high cholesterol. Patient states he has not felt well today. He has had right rib cage pain and chest pain. He is also had nausea and vomiting and some mild diarrhea. Denies any melena. Denies any fever. No specific cough. Physical Examination: Older male vital signs initial blood pressure of 82/49. Afebrile. Pulse ox 93% room air no hypoxia. He does not look septic or toxic. H EENT exam unremarkable. Moist with membranes. Neck nontender no lymphadenopathy. No meningismus. Lungs clear to auscultation bilaterally. Heart regular rhythm rate 100 no murmur. Abdomen soft nontender normal bowel sounds no peritoneal signs. Extremities moves all 4. Calves are nontender without edema or cords. He does have a right lower extremity neuropathy and has pain with touching his right lower leg neurologically is awake and alert with no focal motor deficits. Test Results: EKG shows a sinus tachycardia rate of 101 with old inferior posterior NE seen on a prior EKG from October 2019. Unchanged from that EKG. Chest x-ray portable 1 view read both myself and the radiologist shows no acute abnormality. No infiltrate. Normal cardiac silhouette. CBC shows a white count of 7. Hemoglobin of 15 both his baseline. Electrolytes show potassium 3.4. Normal gap of 10. He is diabetic his glucose is 379. Creatinine is elevated 1.7 consistent with acute kidney injury his last creatinine was 0.8. Urinalysis is in the lab but pending. Troponin normal. Lactic acid is elevated at 4.3 with the elevated lactic acid and his hypotension is consistent with septic shock. Currently however we have no source. Urinalysis shows blood. And ketones but no signs of infection. Prior to blood cultures are pending. He is also now complaining of right-sided abdominal pain which he did have initially his abdomen is mildly tender but there is no peritoneal signs. There is no pulsatile mass. I reviewed his old records he has no prior CT of his abdomen so I did order one given the pain and hypotension. Emergency Department Course and Treatment: Middle-aged male who has an extensive significant past medical history including diabetes, coronary disease and prior stroke. That is hypotensive. He will be treated with IV fluids. Undergoing work-up including labs, EKG chest x-ray. Treatment Plan: Repeat exam is doing well. He complains of diffuse body pain. He was treated with IV fentanyl x2. I have spoken with the hospitalist and she will be admitted. He will either be admitted to PCU or ICU. He is getting a second IV placed. I did review his CAT scan myself. I do not find any obvious abnormality. There is no obvious cause for his hypotension. I will have the overnight physician review the radiologist interpretation which is not done as of yet and act on those results as needed. Disposition: I discussed patient with the hospitalist. She is going to evaluate him and he will be placed in the ICU Impression: Acute hypotension and lactic acid of greater than 4 Rule out septic shock Acute kidney injury Hyperglycemia history of diabetes This note was generated with [employer] dictation software. It may contain incorrect words, spelling, and punctuation that were not noted in review of the chart prior to signing ED Disposition - Plan for ED Patient:
[2019-12-03] MEDS: 0.9% Normal Saline 1,000 ML 999 ML IV ×2 (20:00→22:00)
[2019-12-03] MEDS: Aspirin 81 MG TAB.CHEW 324 MG PO (20:04)
[2019-12-03 20:06] LABS: Absolute Lymphocyte Count 3.53 X10^3/uL (0.83-4.51); Absolute Neutrophil Count 3.4 X10^3/uL (2.0-7.7); Basophil# 0.06 X10^3/uL; Basophil% 0.8 % (0-1); Eosinophil# 0.15 X10^3/uL; Eosinophils% 1.9 % (0-5); Hematocrit 43.3 % (40-54); Hemoglobin 15.2 g/dL (13.0-16.5); Lymphocyte # 3.53 X10^3/ul (4.0); Lymphocyte % 45.6 % (19-41); Mean Corp Hgb Conc 35.1 g/dL (32-36); Mean Corpuscular Hgb 31.1 pg (27.0-32.0); Mean Corpuscular Volume 88.7 fL (80-94); Mean Platelet Vol. 11.9 fl (6.2-12.0); Monocyte# 0.63 X10^3/uL; Monocyte% 8.1 % (0-10); NRBC Flagged by Analyzer 0 % (0-5); Neutrophil # 3.35 X10^3/uL (2.7-7.7); Neutrophil % 43.3 % (47-70); Platelet Count 177 K/mm3 (150-450); RBC Distribution Width CV 12.7 % (11.6-14.6); RBC Distribution Width SD 41.3 fl (35.1-43.9); Red Blood Count 4.88 M/mm3 (4.6-6.2); White Blood Count 7.7 K/mm3 (4.4-11.0)
[2019-12-03 20:26] LABS: Anion Gap 10 (5-15); BUN 14 mg/dL (7-18); BUN/Creat Ratio 8.1 RATIO (10-20); Calcium,Total 9.1 mg/dL (8.5-10.1); Chloride 103 mmol/L (98-107); Creatinine, Serum 1.72 mg/dL (0.70-1.30); EST Glomerular Filtration Rate 44 mL/min (>60); Est Glom Filt Rate - Afr Amer 54 mL/min (>60); Estimated Creatinine Clearance 53.89 ml/min; Glucose 379 mg/dL (74-106); Potassium 3.4 mmol/L (3.5-5.1); Sodium Level 137 mmol/L (136-145)
[2019-12-03 21:15] LABS: Lactic Acid 4.3 mmol/L (0.4-1.9)
[2019-12-03] MEDS: fentaNYL 100 MCG/2 ML Ampul 25 MCG IV ×2 (21:18→22:29)
[2019-12-03 21:55] LABS: Bacteria 0 SEEN /hpf (None Seen); Mucous, Urine 0 SEEN /hpf (<or=2+)
[2019-12-03 22:02] LABS: Color, Urine Yellow (Yellow); Glucose, Dipstick 1000 mg/dl (Normal); Ketone-Dipstick 5 mg/dl (Negative); Leukocyte Esterase-Dipstick Negative /ul (Negative); Nitrite-Dipstick Negative (Negative); Occult Blood-Urine 50 /ul (Negative); Protein-Dipstick 100 mg/dl (Negative); Specific Gravity, Urine 1.015 (1.002-1.030); Urine Bilirubin Dipstick Negative (Negative); Urine Clarity Sl. Cloudy (Clear); Urine Urobilinogen Normal (Normal)
[2019-12-03 22:17] LABS: Amorphous Sediment 1+ URATE; Hyaline Cast 0-5 SEEN /lpf (0-5); Red Blood Cells-Urine 5-10 SEEN /hpf (0-5); Squamous Epithelial Cells - UA 0-5 SEEN /hpf (0-5); White Blood Cells 0-5 SEEN /hpf (0-5)
--- NOTE | 2019-12-03 22:17 | PCM.HP.STD ---
Problem List (1) SIRS (systemic inflammatory response syndrome) Status: Acute (2) Lactic acidosis Status: Acute (3) Hypotension Status: Acute Qualifiers: Hypotension type: unspecified hypotension type Qualified Code(s): I95.9 - Hypotension, unspecified (4) Former tobacco use Status: Chronic (5) GERD (gastroesophageal reflux disease) Status: Chronic Qualifiers: Esophagitis presence: esophagitis presence not specified Qualified Code(s): K21.9 - Gastro-esophageal reflux disease without esophagitis (6) History of stroke Status: Chronic (7) History of coronary artery stent placement Status: Resolved Comment: PCI-BREANNE-OM2; PCI-BREANNE x 2 Distal and Prox RCA; PCI-Cutting Balloon Angioplasty -ISR OM2 09/2016 (8) Atherosclerosis of coronary artery of three affiliated heart without angina pectoris Status: Chronic Qualifiers: Coronary Disease-Associated Artery/Lesion type: unspecified vessel or lesion type Qualified Code(s): I25.10 - Atherosclerotic heart disease of three affiliated coronary artery without angina pectoris (9) Essential (primary) hypertension Status: Chronic (10) HLD (hyperlipidemia) Status: Chronic Qualifiers: Hyperlipidemia type: unspecified History of Present Illness Date of Admission: 12/03/19 Chief Complaint: N/V/D, pleuritic chest pain The patient is a 54 y/o M w/ PMHx: Former Tobacco use, Hx CVA, HTN, HLD, CAD s/p NH and PCI, GERD, Diabetes mellitus type II with Hx Diabetic retinopathy, Obesity, recently discharged on 11/16/2019 following evaluation of chest pain at that time with nuclear stress test demonstrating evidence of his inferior lateral infarct noted previously but no acute evidence of ischemia who now re-presents to the [facility] ED on 12/03/19 with history of ongoing right lower quadrant abdominal discomfort, described as sharp, stabbing as well as intermittently cramping, rated anywhere from 5-10 in severity out of 10 with associated nausea, emesis, intermittent diarrhea ranging between 2 and 6 times per day as well as recent dry cough without any sore throat, intermittent dyspnea, body aches and muscle aches in addition to leg cramps with significant fatigue, malaise and poor oral intake worsening over the last 2 weeks prompting eventual ED presentation. Patient denies any specific fevers or chills with this illness. He notes is worsened over the last 48 hours. 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 Work-up in the ED included T 97, heart rate initially 104, BP 78/48 with improvement to 92/56 with hydration, respiratory rate 20, 93% on room air, CBC with WC 7.7, hemoglobin 15.2, platelet 177 with no significant left shift or lymphopenia, BMP with potassium 3.4, BUN/creatinine 14/1.72, glucose 379, lactic acid 4.3, troponin less than 0.015, blood culture x2 pending per ED, chest x-ray with no acute cardiopulmonary findings, EKG with sinus tachycardia with evidence of prior NH similar to prior EKG with no acute evidence of ischemia urinalysis with specific raphe 1.015, protein 100, glucose 1000, ketones 5, occult blood 50, negative nitrite, negative leukocyte Estrace, 0-5 WBCs, no urine bacteria. In the ED patient administered aspirin 324 mg p.o. x1, fentanyl 25 mcg IV x1 as well as normal saline. Discussed with ED physician and CT abdomen and pelvis will be obtained. Past Medical History Past Medical History (Chronic Problems): Chronic Problems (Last Reviewed 02/15/19 @ 08:50 by Debra Brock) History of stroke (Chronic) Acute embolic stroke (Chronic) Stroke (Chronic) Former tobacco use (Chronic) GERD (gastroesophageal reflux disease) (Chronic) Old myocardial infarction (Chronic) Nicotine dependence (Chronic) Atherosclerosis of coronary artery of three affiliated heart without angina pectoris (Chronic) Essential (primary) hypertension (Chronic) HLD (hyperlipidemia) (Chronic) Medical History: Medical History (Last Reviewed 02/15/19 @ 08:50 by Debra Brock) Old myocardial infarction (Chronic) I25.2 Nicotine dependence (Chronic) F17.200 Atherosclerosis of coronary artery of three affiliated heart without angina pectoris (Chronic) I25.10 Essential (primary) hypertension (Chronic) I10 HLD (hyperlipidemia) (Chronic) E78.5 CVA (cerebral vascular accident) I63.9 Diabetic retinopathy E11.319 GERD (gastroesophageal reflux disease) K21.9 Obesity (BMI 30.0-34.9) E66.9 Type 2 diabetes mellitus E11.9 Mental status alteration R41.82 Allergies No Known Allergies Allergy (Verified 11/15/19 20:14) Home Medications: Ambulatory Orders Medication Instructions Recorded Clopidogrel Bisulfate [Plavix] 75 mg PO DAILY 06/11/16 Carvedilol 6.25 mg PO BID 01/09/18 Ranitidine [Zantac] 150 mg PO QHS 01/09/18 Loratadine 10 mg PO DAILY 02/28/18 Insulin Glargine,Hum.rec.anlog 22 unit SQ QHS 02/11/19 [Tammi Olson U-100] Aspirin [Aspirin EC] 81 mg PO DAILY #30 tablet. 03/23/19 Lisinopril [Zestril] 10 mg PO DAILY 08/01/19 Atorvastatin Calcium 80 mg PO DAILY 11/15/19 Metformin HCl 500 mg PO BID 11/15/19 Pantoprazole Sodium [Protonix] 40 mg PO DAILY 11/15/19 Icosapent Ethyl [Vascepa] 1 gm PO BID #60 cap 11/16/19 Surgical History: Surgical History (Last Reviewed 02/15/19 @ 08:50 by Debra Brock) History of coronary artery stent placement (Resolved) Onset Date: 09/2016 Z95.5 PCI-BREANNE-OM2; PCI-BREANNE x 2 Distal and Prox RCA; PCI-Cutting Balloon Angioplasty -ISR OM2 09/2016 History of elbow surgery Z98.890 History of left heart catheterization Onset Date: 11/08/17 Z98.890 Surgical History: angioplasty - coronary stent, - - LUE surgery, PCI, T+A. Psychiatric History: No pertinent psych hx Smoking Status: Former smoker - *Family History Sibling Family History: Family History (Last Reviewed 02/15/19 @ 08:50 by Debra Brock) Other Diabetes Heart disease Hypertension Myocardial infarction History Items: Heart Disease - Brother w/ CAD/NH in his 50s, fatal. Maternal Family History: Family History (Last Reviewed 02/15/19 @ 08:50 by Debra Brock) Other Diabetes Heart disease Hypertension Myocardial infarction History Items: Diabetes, - Paternal Family History: Family History (Last Reviewed 02/15/19 @ 08:50 by Debra Brock) Other Diabetes Heart disease Hypertension Myocardial infarction History Items: Diabetes, High Cholesterol, Heart Disease - CAD s/p NH in his 50s., Hypertension, - - diabetes, heart disease Review of Systems Constitutional: Reports: Anorexia, Malaise, Weakness, Fatigue. Denies: Chills, Fever, Weight Change HEENT: Reports: Nasal Congestion, Post Nasal Drip, Sinus Drainage. Denies: Head Aches, Sinus Congestion Cardiovascular: Denies: Chest Pain, Chest Pressure, Chest Tightness, Light Headedness, Orthopnea, Palpitations, Syncope Respiratory: Reports: Cough, Shortness of Breath, Shortness of breath at rest, Shortness of breath upon exertion. Denies: Sputum production, Wheezing Gastrointestinal: Reports: Abdominal Pain, Diarrhea, Nausea, Vomiting Genitourinary: Denies: Dysuria Musculoskeletal: Reports: Back Pain, Joint Pain, Muscle pain. Denies: Joint Tenderness Skin: Denies: Rash, Wounds Neurological: Denies: Numbness, Tingling, Focal weakness Psychiatric: Reports: Anxiety, Depression. Denies: Homicidal Ideations, Suicidal Ideations Hematologic/ Lymphatic: Denies: Easy Bruising, Easy Bleeding VTE Information - Inpt Only VTE Present on Admission: No VTE Mechan Device Prophylaxis: SCD's VTE Pharm Prophylaxis ordered?: Yes Patient Problems: Active and Suspected Problems (Last Reviewed 02/15/19 @ 08:50 by Debra Brock) SIRS (systemic inflammatory response syndrome) (Acute) Lactic acidosis (Acute) Hypotension (Acute) Subjective: Seated upright in ED bed, fatigued appearance, ongoing right lower quadrant discomfort but improved since initial ED presentation. Objective: Physical Examination: General: awake, alert, oriented x 3 and cooperative, seated upright in the ED bed, fatigued and ill-appearing, no acute distress. Skin: normal color, turgor, no icterus, cyanosis. HEENT: AT/NC, EOMI, PERRLA, dry MM, no carotid bruits or JVD noted. Lungs: Diminished breath sounds bilaterally, greater bases, moderate effort, no rales, ronchi or wheezing. Heart: Improved, mildly tachycardic with regular rhythm; no gallop, rub audible. Abdomen: soft, mild discomfort the right lower quadrant with no rebound or guarding, ND, mildly hyperactive BS, no HSM. Extremities: no cyanosis, clubbing, or edema. Neurological: patient awake, alert, oriented x 3; cognitive function appears baseline intact; pupils equally reactive to light and accomodation; cranial nerves II-XII grossly normal, moving all 4 extremities, no focal deficits, strength moderately global decrease secondary to acute presentation. Psychiatric: affect appears fatigued, ill-appearing, no acute evidence of depressive or anxiety feelings. - Physical Exam Vitals/I&O's: Vital Signs Temp Pulse Resp BP Pulse Ox 97 F L 88 16 105/81 H 95 12/03/19 19:47 12/03/19 22:00 12/03/19 22:00 12/03/19 22:00 12/03/19 22:00 Oxygen Delivery Method Room Air Weight: 240 lb Body Mass Index (BMI) 32.5 Finger Stick Blood Glucose 234 Intake and Output for Last 24 Hours 12/01/19 12/02/19 12/03/19 23:59 23:59 23:59 Intake Total 999 / 999 Balance 999 / 999 Laboratory Results 12/03/19 20:00: WBC 7.7, RBC 4.88, Hgb 15.2, Hct 43.3, MCV 88.7, MCH 31.1, MCHC 35.1, RDW Std Deviation 41.3, RDW Coeff of Chip 12.7, Plt Count 177, MPV 11.9, Immature Gran % (Auto) 0.300, Neut % (Auto) 43.3 L, Lymph % (Auto) 45.6 H, Lyman % (Auto) 8.1, Eos % (Auto) 1.9, Baso % (Auto) 0.8, Absolute Neuts (auto) 3.4, Absolute Lymphs (auto) 3.53, Nucleated RBC % 0 12/03/19 20:00: Sodium 137, Potassium 3.4 L, Chloride 103, Carbon Dioxide 24.0, Anion Gap 10, BUN 14, Creatinine 1.72 H, Estim Creat Clear Calc 53.89, Est GFR (MDRD) Af Amer 54 L, Est GFR (MDRD) Non-Af 44 L, BUN/Creatinine Ratio 8.1 L, Glucose 379 H, Calcium 9.1, Troponin I < 0.015 12/03/19 20:25: Lactic Acid 4.3 H* 12/03/19 21:50: Urine Color Yellow, Urine Clarity Sl. Cloudy, Urine pH 5.0, Ur Specific Pitts 1.015, Urine Protein 100 H, Urine Glucose (UA) 1000 H, Urine Ketones 5 H, Urine Occult Blood 50 H, Urine Nitrite Negative, Urine Bilirubin Negative, Urine Urobilinogen Normal, Ur Leukocyte Esterase Negative, Urine RBC Pending, Urine WBC Pending, Ur Squamous Epith Cells Pending, Urine Bacteria Pending, Urine Mucus Pending Current Medications Fentanyl Citrate (Sublimaze (100mcg Ampule)) 25 mcg IV X1 ONE Stop: 12/03/19 22:17 Sodium Chloride () 1,000 mls @ 999 mls/hr IV .Q1H1M ONE Stop: 12/03/19 23:09 Last Admin: 12/03/19 22:00 Dose: 999 mls/hr Documented by: Assessment/Plan All Active Problems (Last Reviewed 02/15/19 @ 08:50 by Debra Brock) Chest pain (Acute) SIRS (systemic inflammatory response syndrome) (Acute) Lactic acidosis (Acute) Hypotension (Acute) History of coronary artery stent placement (Resolved 09/2016) Angina pectoris (Resolved) Arterial complication of procedure (Resolved) The patient is a 54 y/o M w/ PMHx: Former Tobacco use, Hx CVA, HTN, HLD, CAD s/p NH and PCI, GERD, Diabetes mellitus type II with Hx Diabetic retinopathy, Obesity who presents to the [facility] ED on 12/03/19 with history of ongoing right lower quadrant abdominal discomfort, described as sharp, stabbing as well as intermittently cramping, rated anywhere from 5-10 in severity out of 10 with associated nausea, emesis, intermittent diarrhea ranging between 2 and 6 times per day as well as recent dry cough without any sore throat, intermittent dyspnea, body aches and muscle aches in addition to leg cramps with significant fatigue, malaise and poor oral intake worsening over the last 2 weeks prompting eventual ED presentation. 1. Acute SIRS with Lactic Acidosis, Hypotension, Unclear Etiology with noted Abdominal pain, N/V/D, Cough, Dyspnea, possibly secondary to Acute Viral Syndrome, COVID-19: Given notable hypotension in the ED, will maintain to the ICU, request ICU consultation, maintain on oxygen with wean as tolerated to room air, PRN albuterol, maintain on IV Rocephin and Azithromycin in case COVID associated pending further work-up w/ discontinuation if appropriate, HOB, IS parameters w/ pending sputum cultures and urine antigens as well as respiratory viral panel requested, will obtain procalcitonin, CRP, CPK, Ferritin, LDH, Alk phos/AST/ALT, EKG w/ no acute evidence of ischemia and trop <0.015, will cycle cardiac enzymes, repeat EKG in AM, continue supportive care, obtain stool cultures, c-diff assay, obtain additionally COVID-19 testing. Bld cx x [address] A/P requested and pending upon admission. 2. Acute kidney injury: Secondary to recent GI losses as noted #1. Admission BUN/Cr 14/1.72, prior baseline creatinine noted to be 0.8. Will hydrate, hold nephrotoxic medications and repeat chemistry in AM. If no improvement would plan FeNa and renal US assessment. 3. Diabetes mellitus type II with hyperglycemia, uncontrolled: Recent admission with hemoglobin A1c obtained and noted to be 11.5%, given level will add low dose BID lantus, will hold oral home regimen, continue home insulin regimen, ADA diet, accu checks w/ ISS. 4. Hypokalemia: Admission K+ 3.4, magnesium level requested, supplementation given, repeat level in AM. 5. CAD: Will maintain on aspirin, plavix, statin, holding patient Coreg and lisinopril given hypotension and acute kidney injury. 6. Hypertension: Notably hypotensive upon presentation, still unclear specific etiology, suspect infectious possible component versus hypotension related to significant GI losses, add oral agents once appropriate and ÁLVARO also resolved. 7. Hyperlipidemia: Continue home statin regimen. 8. History CVA: We will maintain on aspirin, statin, holding hypertensive regimen as noted, continue diabetic regimen except hold oral agents. 9. Former Tobacco Abuse: Encouraged continued tobacco cessation. 10. GERD: We will maintain on PPI. 11. DVT prophylaxis: SCDs, heparin. Inpatient E&M: [id number] Init Hosp L3
--- NOTE | 2019-12-03 22:19 | CT_ITS ---
STUDY: CT ABDOMEN AND PELVIS WITHOUT CONTRAST REASON FOR EXAM: Male, 54 years old. RT ABD PAIN/HYPOTENSION. Hx of heart stent, HTN, HLD and CVA RADIATION DOSAGE (If Supplied By Facility): CTDIvol = ( 18.09 ) mGy, DLP = ( 989.54 ) mGycm TECHNIQUE: Transaxial images were obtained from the dome of the diaphragm to the symphysis pubis without oral contrast, and without intravenous contrast. Sagittal and coronal images were reconstructed. Individualized dose optimization techniques were used for this CT. COMPARISON: None. FINDINGS: The visualized lung bases are unremarkable. The heart size is normal. Coronary arterial stents are noted. There is no pericardial effusion. Normal liver. Normal gallbladder and extrahepatic biliary system. The spleen appears within normal limits. Perisplenic varices are noted. Normal pancreas. Normal bilateral adrenal glands. 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 Normal left kidney. Normal visualized stomach. Normal small intestine. There are scattered colonic diverticuli. There is no evidence of associated diverticulitis. The appendix is visualized and appears normal. There are calcified plaques of the abdominal aorta and common iliac arteries. Normal inferior vena cava. Normal retroperitoneum. Normal urinary bladder. The prostate is enlarged and contains calcifications. The seminal vesicles and seminal vesicle angles are preserved. There are prominent right pelvic vessels. There are bilateral fat-containing inguinal hernias. Engorged blood vessels are seen in the right inguinal canal. There is diffuse endplate spondylosis of the visualized thoracolumbar spine. CT/Abdomen/Pelvis without Cont IMPRESSION: 1. 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 2. 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 3. Colonic diverticulosis with no evidence of associated diverticulitis. 4. The appendix appears normal. 5. Enlarged prostate containing calcifications. 6. There are prominent right pelvic vessels. 7. There are bilateral fat-containing inguinal hernias. Engorged blood vessels are seen in the right inguinal canal. 8. There is no evidence of free intra-abdominal or intrapelvic air or fluid. Report Electronically Signed: Miguel Schroeder MD at 23:28 EDT , Service support ,
[2019-12-04] VITALS (24 sets, daily range): BP systolic 92–154; BP diastolic 50–102; PULSE 78–95; RESP 14–21; TEMP 36.3–36.8; O2SAT 93–99
[2019-12-04] MEDS: Morphine 2 MG/ML Syringe IV ×5 (00:04→21:55)
[2019-12-04] MEDS: 0.9% Saline Lock 10 ML Syringe IV ×5 (00:04→21:55)
[2019-12-04] MEDS: 0.9% Normal Saline 1,000 ML 999 ML IV (00:05)
[2019-12-04 00:11] LABS: Bedside Glucose 376 mg/dL (70-110)
[2019-12-04 00:22] LABS: AST(SGOT) 13 U/L (15-37); Alanine Aminotransfer ALT/SGPT 24 U/L (16-61); Albumin, Serum 3.7 g/dL (3.2-5.0); Alkaline Phosphatase 81 U/L (45-117); Bilirubin, Direct 0.14 mg/dL (0.00-0.30); CRP < 2.90 mg/L (0.0-3.0); Ferritin 337 ng/mL (26-388); LDH 153 U/L (87-241); Magnesium 1.5 mg/dL (1.6-2.6); Protein, Total 6.7 g/dL (6.4-8.2)
[2019-12-04 00:28] LABS: Reflex Lactate? Y
[2019-12-04] MEDS: 0.9% Normal Saline 1,000 ML 150 ML IV (01:00)
[2019-12-04] MEDS: Azithromycin 250 MG Tablet 500 MG PO ×2 (01:27→09:23)
[2019-12-04] MEDS: Atorvastatin Calcium 80 MG Tablet PO ×2 (01:31→23:10)
[2019-12-04 01:50] LABS: Procalcitonin 0.07 ng/mL (0.00-0.09)
[2019-12-04 02:06] LABS: Lactic Acid 1.6 mmol/L (0.4-1.9)
[2019-12-04 04:42] LABS: Absolute Lymphocyte Count 2.78 X10^3/uL (0.83-4.51); Absolute Neutrophil Count 2.7 X10^3/uL (2.0-7.7); Basophil# 0.04 X10^3/uL; Basophil% 0.7 % (0-1); Eosinophil# 0.15 X10^3/uL; Eosinophils% 2.4 % (0-5); Hematocrit 35.9 % (40-54); Hemoglobin 12.6 g/dL (13.0-16.5); Lymphocyte # 2.78 X10^3/ul (4.0); Lymphocyte % 45.3 % (19-41); Mean Corp Hgb Conc 35.1 g/dL (32-36); Mean Corpuscular Hgb 30.8 pg (27.0-32.0); Mean Corpuscular Volume 87.8 fL (80-94); Mean Platelet Vol. 11.9 fl (6.2-12.0); Monocyte# 0.44 X10^3/uL; Monocyte% 7.2 % (0-10); NRBC Flagged by Analyzer 0 % (0-5); Neutrophil # 2.72 X10^3/uL (2.7-7.7); Neutrophil % 44.2 % (47-70); Platelet Count 126 K/mm3 (150-450); RBC Distribution Width CV 12.9 % (11.6-14.6); RBC Distribution Width SD 41.2 fl (35.1-43.9); Red Blood Count 4.09 M/mm3 (4.6-6.2); White Blood Count 6.1 K/mm3 (4.4-11.0)
[2019-12-04 05:17] LABS: AST(SGOT) 17 U/L (15-37); Alanine Aminotransfer ALT/SGPT 23 U/L (16-61); Albumin, Serum 2.8 g/dL (3.2-5.0); Alkaline Phosphatase 99 U/L (45-117); Anion Gap 7 (5-15); BUN 16 mg/dL (7-18); BUN/Creat Ratio 19.8 RATIO (10-20); Calcium,Total 7.5 mg/dL (8.5-10.1); Chloride 106 mmol/L (98-107); Creatinine, Serum 0.81 mg/dL (0.70-1.30); EST Glomerular Filtration Rate 106 mL/min (>60); Est Glom Filt Rate - Afr Amer 128 mL/min (>60); Estimated Creatinine Clearance 114.43 ml/min; Globulin 2.9 g/dL (2.2-4.2); Glucose 316 mg/dL (74-106); Potassium 3.4 mmol/L (3.5-5.1); Protein, Total 5.7 g/dL (6.4-8.2); Sodium Level 138 mmol/L (136-145)
--- NOTE | 2019-12-04 05:55 | RAD_ITS ---
STUDY: X-RAY CHEST REASON FOR EXAM: Male, 54 years old. DYSPNEA -- COUGH TECHNIQUE: Single AP portable view of the chest. Patient is rotated to the right. COMPARISON: 12/03/2019. FINDINGS: The lungs are clear and expanded. There is no demonstrated pleural abnormality. Normal size heart. Normal mediastinum and sang. Normal visualized pulmonary arteries. Normal visualized aortic arch and descending thoracic aorta. There are multilevel degenerative changes of the visualized thoracic spine. Normal visualized ribs, clavicles, and shoulders. There is no demonstrated abnormality of the visualized soft tissue structures of the upper abdomen. RAD/Chest 1 View (Portable) IMPRESSION: No evidence for acute cardiopulmonary pathology. Electronically Signed: Giuseppe Cee MD at 5:06 EDT , Service support ,
--- NOTE | 2019-12-04 05:55 | EKG12_ITS ---
Test Reason : AM EKG Blood Pressure : / mmHG Vent. Rate : 078 BPM Atrial Rate : 078 BPM P-R Int : 166 ms QRS Dur : 096 ms QT Int : 414 ms P-R-T Axes : 008 107 085 degrees QTc Int : 471 ms Normal sinus rhythm Inferior-posterior infarct , age undetermined Abnormal ECG When compared with ECG of 03-DEC-2019 19:39, MANUAL COMPARISON REQUIRED, DATA IS UNCONFIRMED Confirmed by MAXINE LAWSON ([id number]), pictures editor WILLEM IGNACIO ([id number]) on 12/07/2019 10:35:01 AM Referred By: MICHI Confirmed By:MAXINE LAWSON
[2019-12-04] MEDS: Insulin Lispro 100 UNIT/ML INSULN.PEN SC ×4 (06:54→23:09)
[2019-12-04 07:05] LABS: Bedside Glucose 337 mg/dL (70-110)
--- NOTE | 2019-12-04 08:36 | PCM.CON.CC ---
Problem List (1) History of stroke Status: Chronic (2) Chest pain Status: Acute (3) SIRS (systemic inflammatory response syndrome) Status: Acute (4) Lactic acidosis Status: Acute (5) Hypotension Status: Acute Qualifiers: Hypotension type: unspecified hypotension type Qualified Code(s): I95.9 - Hypotension, unspecified (6) GERD (gastroesophageal reflux disease) Status: Chronic Qualifiers: Esophagitis presence: esophagitis presence not specified Qualified Code(s): K21.9 - Gastro-esophageal reflux disease without esophagitis (7) Old myocardial infarction Status: Chronic (8) History of coronary artery stent placement Status: Resolved Comment: PCI-BREANNE-OM2; PCI-BREANNE x 2 Distal and Prox RCA; PCI-Cutting Balloon Angioplasty -ISR OM2 09/2016 (9) Atherosclerosis of coronary artery of [place] heart without angina pectoris Status: Chronic Qualifiers: Coronary Disease-Associated Artery/Lesion type: unspecified vessel or lesion type Qualified Code(s): I25.10 - Atherosclerotic heart disease of [place] coronary artery without angina pectoris (10) Essential (primary) hypertension Status: Chronic (11) HLD (hyperlipidemia) Status: Chronic Qualifiers: Hyperlipidemia type: unspecified Reason for Consult Date of Consultation: 12/04/19 Reason for Consultation: Hypotension History of Present Illness: The patient is a 54 year old M, with past medical history listed below, who presented to [facility] on 12/03/2019 secondary to chest and rib pain with associated nausea and vomiting. Patient reportedly had an initial blood pressure of 82/49, but was saturating 93% on room air without fever. History appears to be variable depending on notes. Patient is not able to provide much additional history to me on my evaluation this morning. In the ER, patient reportedly had moist membranes, but was tachycardic. EKG was reportedly unchanged. Laboratory work-up showed no leukocytosis and a blood sugar of 379. Creatinine was elevated at 1.7 (baseline 0.8) and lactate was elevated at 4.3. Patient was given 30 cc/kg of fluids and fentanyl IV. Patient was admitted to the ICU and currently has a COVID pending. Chest x-ray showed no acute infiltrates. Overnight, patient has remained hemodynamically stable on room air. Patient continues to report generalized pain, but has not been consistent in his complaints. Patient has tolerated some p.o. intake. Urine output has been adequate. Patient is not reporting any respiratory complaints at this time. Patient is not reporting any difficulty with his diabetes management, but is very put off with questions about his diabetes. Review of systems otherwise negative from a constitutional, HEENT, respiratory, cardiovascular, GI, genitourinary, musculoskeletal, skin, neurologic, psychiatric and hematologic system unless stated above. Past Medical History Past Medical History (Chronic Problems): Chronic Problems (Last Reviewed 02/15/19 @ 08:50 by Debra Brock) History of stroke (Chronic) Acute embolic stroke (Chronic) Stroke (Chronic) Former tobacco use (Chronic) GERD (gastroesophageal reflux disease) (Chronic) Old myocardial infarction (Chronic) Nicotine dependence (Chronic) Atherosclerosis of coronary artery of [place] heart without angina pectoris (Chronic) Essential (primary) hypertension (Chronic) HLD (hyperlipidemia) (Chronic) Medical History: Medical History (Last Reviewed 02/15/19 @ 08:50 by Debra Brock) Old myocardial infarction (Chronic) I25.2 Nicotine dependence (Chronic) F17.200 Atherosclerosis of coronary artery of [place] heart without angina pectoris (Chronic) I25.10 Essential (primary) hypertension (Chronic) I10 HLD (hyperlipidemia) (Chronic) E78.5 CVA (cerebral vascular accident) I63.9 Diabetic retinopathy E11.319 GERD (gastroesophageal reflux disease) K21.9 Obesity (BMI 30.0-34.9) E66.9 Type 2 diabetes mellitus E11.9 Mental status alteration R41.82 Allergies No Known Allergies Allergy (Verified 11/15/19 20:14) Home Medications: Ambulatory Orders Medication Instructions Recorded Clopidogrel Bisulfate [Plavix] 75 mg PO DAILY 06/11/16 Carvedilol 6.25 mg PO BID 01/09/18 Ranitidine [Zantac] 150 mg PO QHS 01/09/18 Loratadine 10 mg PO DAILY 02/28/18 Insulin Glargine,Hum.rec.anlog 22 unit SQ QHS 02/11/19 [Kaseyaglcarmen Olson U-100] Aspirin [Aspirin EC] 81 mg PO DAILY #30 tablet. 03/23/19 Lisinopril [Zestril] 10 mg PO DAILY 08/01/19 Atorvastatin Calcium 80 mg PO DAILY 11/15/19 Metformin HCl 500 mg PO BID 11/15/19 Pantoprazole Sodium [Protonix] 40 mg PO DAILY 11/15/19 Icosapent Ethyl [Vascepa] 1 gm PO BID #60 cap 11/16/19 Surgical History: Surgical History (Last Reviewed 02/15/19 @ 08:50 by Debra Brock) History of coronary artery stent placement (Resolved) Onset Date: 09/2016 Z95.5 PCI-BREANNE-OM2; PCI-BREANNE x 2 Distal and Prox RCA; PCI-Cutting Balloon Angioplasty -ISR OM2 09/2016 History of elbow surgery Z98.890 History of left heart catheterization Onset Date: 11/08/17 Z98.890 Surgical History: angioplasty - coronary stent, - - LUE surgery, PCI, T+A. Psychiatric History: No pertinent psych hx Smoking Status: Former smoker - *Family History Sibling Family History: Family History (Last Reviewed 02/15/19 @ 08:50 by Debra Brock) Other Diabetes Heart disease Hypertension Myocardial infarction History Items: Heart Disease - Brother w/ CAD/NH in his 50s, fatal. Maternal Family History: Family History (Last Reviewed 02/15/19 @ 08:50 by Debra Brock) Other Diabetes Heart disease Hypertension Myocardial infarction History Items: Diabetes, - Paternal Family History: Family History (Last Reviewed 02/15/19 @ 08:50 by Debra Brock) Other Diabetes Heart disease Hypertension Myocardial infarction History Items: Diabetes, High Cholesterol, Heart Disease - CAD s/p NH in his 50s., Hypertension, - - diabetes, heart disease Review of Systems Comment: See HPI Patient Problems: Active and Suspected Problems (Last Reviewed 02/15/19 @ 08:50 by Debra Brock) SIRS (systemic inflammatory response syndrome) (Acute) Lactic acidosis (Acute) Hypotension (Acute) Objective: Chest x-ray was personally reviewed and shows no acute infiltrates. - Physical Exam Vitals/I&O's: Vital Signs Temp Pulse Resp BP Pulse Ox 36.3 C L 90 15 96/65 95 12/04/19 06:00 12/04/19 07:00 12/04/19 07:00 12/04/19 07:00 12/04/19 07:00 Oxygen Delivery Method Room Air Weight: 102.058 kg Body Mass Index (BMI) 30.5 Finger Stick Blood Glucose 234 Intake and Output for Last 24 Hours 12/02/19 12/03/19 12/04/19 23:59 23:59 23:59 Intake Total 1999 1777 / 1777 Output Total 1100 / 1100 Balance 1999 677 / 677 General: Alert, Oriented x3, Cooperative - Intermittently, No apparent distress, - - Obese. No conversational dyspnea. HEENT: Atraumatic, PERRLA, EOMI, Normocephalic, - Oral: Moist Mucosa, No Gingival or Mucosal Lesions/ Ulcerations Neck: Supple, No JVD, No Nodes, Trachea Midline Lungs: No rhonchi, No wheeze, No rales, Diminished Cardiovascular: Regular rate, Regular Rhythm, Normal S1, Normal S2, No murmurs, No rub noted, No Gallop Abdomen: Bowel Sounds Present, Soft, Non Tender, Non-Distended, Obese Extremities: No clubbing, No cyanosis, No edema, Capillary Refill Less than 3 Seconds Skin: No rashes, No breakdown Musculoskeletal: No Tenderness to Palpation of Joints or Extremities Lymphatic: No Cervical, Supraclavicular, or Inguinal Adenopathy Neurological: Cranial nerves II-XII grossly intact, Neuro grossly intact, Motor Exam 5/5 strength throughout Psych/Mental Status: Normal Affect, Appropriate Microbiology Past 72 Hours 12/04/19 02:15 Mucosa - Nasopharyngeal Respiratory Panel (PCR) - Final 12/04/19 00:00 Urine, Clean Catch Streptococcus pneumoniae Antigen (M - Final 12/04/19 00:00 Urine, Clean Catch Legionella Antigen - Final Laboratory Results 12/03/19 20:00: WBC 7.7, RBC 4.88, Hgb 15.2, Hct 43.3, MCV 88.7, MCH 31.1, MCHC 35.1, RDW Std Deviation 41.3, RDW Coeff of Chip 12.7, Plt Count 177, MPV 11.9, Immature Gran % (Auto) 0.300, Neut % (Auto) 43.3 L, Lymph % (Auto) 45.6 H, [place] % (Auto) 8.1, Eos % (Auto) 1.9, Baso % (Auto) 0.8, Absolute Neuts (auto) 3.4, Absolute Lymphs (auto) 3.53, Nucleated RBC % 0 12/03/19 20:00: Sodium 137, Potassium 3.4 L, Chloride 103, Carbon Dioxide 24.0, Anion Gap 10, BUN 14, Creatinine 1.72 H, Estim Creat Clear Calc 53.89, Est GFR (MDRD) Af Amer 54 L, Est GFR (MDRD) Non-Af 44 L, BUN/Creatinine Ratio 8.1 L, Glucose 379 H, Calcium 9.1, Troponin I < 0.015 12/03/19 20:00: Magnesium 1.5 L, Ferritin 337, Total Bilirubin 0.50, Direct Bilirubin 0.14, AST 13 L, ALT 24, Alkaline Phosphatase 81, Lactate Dehydrogenase 153, C-React Prot Ext Range < 2.90, Total Protein 6.7, Albumin 3.7, Globulin 3.0 12/03/19 20:00: Procalcitonin 0.07 12/03/19 20:25: Lactic Acid 4.3 H* 12/03/19 21:50: Urine Color Yellow, Urine Clarity Sl. Cloudy, Urine pH 5.0, Ur Specific [place] 1.015, Urine Protein 100 H, Urine Glucose (UA) 1000 H, Urine Ketones 5 H, Urine Occult Blood 50 H, Urine Nitrite Negative, Urine Bilirubin Negative, Urine Urobilinogen Normal, Ur Leukocyte Esterase Negative, Urine RBC 5-10 SEEN, Urine WBC 0-5 SEEN, Ur Squamous Epith Cells 0-5 SEEN, Amorphous Sediment 1+ URATE, Urine Bacteria 0 SEEN, Hyaline Casts 0-5 SEEN, Urine Mucus 0 SEEN 12/03/19 23:26: POC Glucose 376 H 12/04/19 01:00: Lactic Acid 1.6 12/04/19 01:00: Troponin I 0.016 12/04/19 02:15: COVID-19 (TAVO) Pending 12/04/19 04:30: WBC 6.1, RBC 4.09 L, Hgb 12.6 L, Hct 35.9 L, MCV 87.8, MCH 30.8, MCHC 35.1, RDW Std Deviation 41.2, RDW Coeff of Chip 12.9, Plt Count 126 L, MPV 11.9, Immature Gran % (Auto) 0.200, Neut % (Auto) 44.2 L, Lymph % (Auto) 45.3 H, [place] % (Auto) 7.2, Eos % (Auto) 2.4, Baso % (Auto) 0.7, Absolute Neuts (auto) 2.7, Absolute Lymphs (auto) 2.78, Nucleated RBC % 0 12/04/19 04:30: Sodium 138, Potassium 3.4 L, Chloride 106, Carbon Dioxide 25.0, Anion Gap 7, BUN 16, Creatinine 0.81, Estim Creat Clear Calc 114.43, Est GFR (MDRD) Af Amer 128, Est GFR (MDRD) Non-Af 106, BUN/Creatinine Ratio 19.8, Glucose 316 H, Calcium 7.5 L, Total Bilirubin 0.30, AST 17, ALT 23, Alkaline Phosphatase 99, Troponin I < 0.015, Total Protein 5.7 L, Albumin 2.8 L, Globulin 2.9, Albumin/Globulin Ratio 1.0 12/04/19 06:52: POC Glucose 337 H Current Medications Acetaminophen (Tylenol) 650 mg PO Q6H PRN PRN PRN Reason: Pain Score 1-10/Temp > 100.7 F Al Hydroxide/Mg Hydroxide (Mylanta Ii) 30 ml PO Q6H PRN PRN PRN Reason: Gastric Burning Albuterol Sulfate (Ventolin Aerosols) 2.5 mg INHALATION Q2H PRN PRN PRN Reason: Dyspnea, wheezing Aspirin (Ecotrin) 81 mg PO DAILY [facility] Atorvastatin Calcium (Lipitor) 80 mg PO QHS [facility] Last Admin: 12/04/19 01:31 Dose: 80 mg Documented by: Azithromycin (Zithromax) 500 mg PO Q24 [facility] Last Admin: 12/04/19 01:27 Dose: 500 mg Documented by: Clopidogrel Bisulfate (Plavix) 75 mg PO DAILY [facility] Dextrose (D50w Syringe) 0 gm IV X1 PRN; Protocol PRN Reason: Hypoglycemia Glucagon () 1 mg IM .X1 PRN PRN Reason: Hypoglycemia Guaifenesin (Robitussin) 10 ml PO Q4H PRN PRN PRN Reason: COUGH Heparin Sodium (Porcine) (Heparin Na) 5,000 unit SC Q12 [facility] Hydralazine HCl (Apresoline Iv) 10 mg IV Q4H PRN PRN PRN Reason: SBP > 160 Ceftriaxone Sodium 2 gm/ (Sodium Chloride) 50 mls @ 100 mls/hr IV Q24 [facility] Last Infusion: 12/04/19 02:00 Dose: Infused Documented by: Sodium Chloride () 1,000 mls @ 150 mls/hr IV .Q6H40M [facility] Last Admin: 12/04/19 01:00 Dose: 150 mls/hr Documented by: Sodium Chloride () 250 mls @ 15 mls/hr IV .[id number] PRN PRN Reason: Additional IVPB Infusion Insulin Glargine (Lantus (Bk)) 10 units SC 1100,2200 [facility] Last Admin: 12/04/19 01:28 Dose: 10 units Documented by: Insulin Human Lispro (Humalog Kwikpen ([facility])) 0 unit SC ACHS [facility]; Protocol Last Admin: 12/04/19 06:54 Dose: 8 units Documented by: Loratadine (Claritin) 10 mg PO DAILY [facility] Melatonin (Melatonin) 3 mg PO QHS PRN PRN PRN Reason: INSOMNIA Morphine Sulfate () 2 mg IV Q3H PRN PRN PRN Reason: Pain Score 6-10/10 Last Admin: 12/04/19 06:32 Dose: 2 mg Documented by: Nitroglycerin (Nitrostat) 0.4 mg SUBLINGUAL Q5M PRN PRN Reason: CARDIAC/CHEST PAIN Ondansetron HCl (Zofran) 4 mg IV Q8H PRN PRN PRN Reason: NAUSEA/VOMITING Oxycodone HCl (Oxyir) 5 mg PO Q4H PRN PRN PRN Reason: Pain Score 4-5/10 Pantoprazole Sodium (Protonix) 40 mg PO DAILY [facility] Prochlorperazine Edisylate (Compazine Iv) 5 mg IV Q4H PRN PRN PRN Reason: Breakthrough Nausea/Vomiting Sodium Chloride () 10 - 40 ml IV UD PRN PRN Reason: SALINE FLUSH Last Admin: 12/04/19 06:33 Dose: 10 ml Documented by: Throat Lozenges (Cepacol Sore Throat Lozenge) 1 lozenge MUCOUS MEM Q2H PRN PRN PRN Reason: SORE THROAT Clinical Impression(s) from Imaging Studies Chest X-Ray 12/03/19 19:34 IMPRESSION: Normal x-ray examination of the chest. Electronically Signed: Miguel Schroeder MD at 20:46 EDT , Service support , Abdomen/Pelvis CT 12/03/19 22:19 IMPRESSION: 1. 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 2. 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 3. Colonic diverticulosis with no evidence of associated diverticulitis. 4. The appendix appears normal. 5. Enlarged prostate containing calcifications. 6. There are prominent right pelvic vessels. 7. There are bilateral fat-containing inguinal hernias. Engorged blood vessels are seen in the right inguinal canal. 8. There is no evidence of free intra-abdominal or intrapelvic air or fluid. Report Electronically Signed: Miguel Schroeder MD at 23:28 EDT , Service support , Chest X-Ray 12/04/19 05:55 IMPRESSION: No evidence for acute cardiopulmonary pathology. Electronically Signed: Giuseppe Cee MD at 5:06 EDT , Service support , Assessment/Plan Active and Suspected Problems (Last Reviewed 02/15/19 @ 08:50 by Debra Brock) SIRS (systemic inflammatory response syndrome) (Acute) Lactic acidosis (Acute) Hypotension (Acute) RECOMMENDATIONS: 1. Aggressive control of hyperglycemia 2. Continue aggressive hydration 3. Pain control per hospitalist 4. Await COVID testing 5. Walking oximetry prior to discharge 6. Okay to transfer from the intensive care unit IMPRESSIONS: 1. Acute SIRS with lactic acidosis secondary to probable dehydration Clinical suspicion for hypotension secondary to hypovolemia with diuresis associated with elevated glucose, nausea and vomiting. Patient responded well to fluids. Reasonable to continue empiric antibiotics until cultures are negative. However, patient has remained hemodynamically stable on room air while in the intensive care unit. Likely okay to leave the intensive care unit from my perspective. Patient does not have any significant leukocytosis, fever or respiratory symptoms to suggest COVID from my perspective. 2. Acute kidney injury?hypokalemia Clinical suspicion for prerenal etiology secondary to dehydration. Patient has responded well to hydration. This is resolved at this time. No indication for renal replacement therapy. Potassium supplementation by mouth would be appropriate. 3. Chronic pain syndrome/hypertension/hyperlipidemia/history of CVA/GERD/obesity/marijuana use Complicates care, management, recovery and prognosis. Would monitor for withdrawal symptoms. Okay to reinitiate hypertensive medications in a stepwise fashion from my perspective. Likely okay to reinitiate oral diabetic medications also, but hemoglobin A1c would suggest the insulin therapy as an outpatient would be appropriate. Consider evaluation by endocrine as an outpatient. Inpatient E&M: 66038 Init Hosp L3
[2019-12-04] MEDS: Pantoprazole Sodium 40 MG Tablet PO (09:23)
[2019-12-04] MEDS: Aspirin E.C. 81 MG Tablet PO (09:23)
[2019-12-04] MEDS: Loratadine 10 MG Tablet PO (09:23)
[2019-12-04] MEDS: Clopidogrel Bisulfate 75 MG Tablet PO (09:23)
[2019-12-04] MEDS: Heparin Injection (Vial) 5,000 UNIT/ML VIAL 5000 UNIT SC ×2 (09:23→23:09)
[2019-12-04] MEDS: oxyCODONE 5 MG Tablet PO ×4 (09:24→23:10)
--- NOTE | 2019-12-04 10:27 | CASEMGMT ---
RN CM Assessment Note Presentation: SIRS, R/O COVID-19 Intro role of CM and purpose of RN CM assessment to patient via phone. Demographics, PCP and Pharmacy verified. Pt is very emotional, crying. States his life is a mess. States he is having to leave a 2 story [place] [facility] [place], which is being shut down so he doesn't know where he will go on discharge. States his son isn't speaking to him and his car keeps breaking down. Emotional support given, allowed pt to verbalize frustration. Asked if pt would be willing to speak with social worker clinical re: uncertain dc disposition. Pt is agreeable. Pt also states I have a lot of pill bottles at home but I don't know what I'm suppose to take. PCP: Dr. eH. Call to office. Pt had last completed appt 09.19.2019, but had 4 no shows previously. Per appt desk, pt has high no show rate. Specialists: none per pt Preferred Pharmacy: [facility]. Pt states [facility] for [facility], but he states he doesn't understand what meds. Pt stated they just keep calling that they filled pills. Insurance: [employer] Prescription Benefit: yes LNOK : none. Pt states he broke up with his S.O. Bertha Dowell. Did not wish to take her off his demographics yet, but states I have no one. Living Arrangements: Is currently living in [facility] but states he has to move. Was independent in ADL and denies care needs. Transportation: drives, but does not have reliable transportation DME: cane only. States he does not have Glucometer or supplies. SW: Janes updated re: pt's emotional state, concerns re: discharge and possible homeless situation. HHC: none Patient DC goals: home DC PLAN: anticipate will be able to dc from hospital to home. SW consult to assist with pt's concerns re: possible homeless situation. Will need script for glucometer and supplies on dc. Trenton MADRIGALN RN ACM
--- NOTE | 2019-12-04 11:36 | CASEMGMT ---
Addendum entered by Venice Woo 12/04/19 13:56: SW updated that COVID test was cancelled for pt. SW attempted to meet with pt in room, but pt had already transferred down to PCU. SW to follow up with pt tomorrow regarding emotional support/housing resources. Original Note: Social Work Note SW received referral for emotional support and pt could be homeless at discharge. Pt is in precautions for COVID pending at this time. SW attempted to call pt's room, pt didn't answer. SW will either meet with pt once COVID is ruled out or continue to try and call pt as time allows to provide support/resources to pt. SW to continue to follow. Venice Woo ELECTRIC SYSTEM OPERATOR, [employer]ER
[2019-12-04 12:20] LABS: Bedside Glucose 291 mg/dL (70-110)
--- NOTE | 2019-12-04 15:00 | PN_ITS ---
Patient Problems: Active and Suspected Problems (Last Reviewed 02/15/19 @ 08:50 by Debra Brock) SIRS (systemic inflammatory response syndrome) (Acute) Lactic acidosis (Acute) Hypotension (Acute) Subjective: Patient seen and examined. He feels better today. His generalized body aches has improved. He denies any fever or chills, nausea vomiting or diarrhea. Review systems otherwise negative. Labs and vitals reviewed. Vitals/I&O's: Vital Signs Temp Pulse Resp BP Pulse Ox 98.1 F 88 18 143/102 H 95 12/04/19 13:00 12/04/19 13:00 12/04/19 13:00 12/04/19 13:00 12/04/19 13:00 Oxygen Delivery Method Room Air Weight: 225 lb Body Mass Index (BMI) 30.5 Finger Stick Blood Glucose 234 Intake and Output for Last 24 Hours 12/02/19 12/03/19 12/04/19 23:59 23:59 23:59 Intake Total 1999 3527 / 3527 Output Total 1725 / 1725 Balance 1999 1802 / 1802 General: Alert, Oriented x3, Cooperative, No apparent distress HEENT: Atraumatic, PERRLA, EOMI, Normocephalic Oral: Moist Mucosa Neck: Supple, No JVD, Negative Carotid Bruits Lungs: Clear to auscultation, Normal air movement, No rhonchi, No wheeze Cardiovascular: Regular rate, Regular Rhythm, Normal S1, Normal S2, No murmurs Abdomen: Bowel Sounds Present, Soft, Non Tender Extremities: No clubbing, No cyanosis, No edema, Capillary Refill Less than 3 Seconds Skin: No rashes, No breakdown Musculoskeletal: No Tenderness to Palpation of Joints or Extremities Lymphatic: No Cervical, Supraclavicular, or Inguinal Adenopathy Neurological: Cranial nerves II-XII grossly intact, Neuro grossly intact, Motor Exam 5/5 strength throughout Psych/Mental Status: Normal Affect, Appropriate, Alert and oriented to time, place, person, mood and affect Microbiology Past 72 Hours 12/04/19 02:15 Mucosa - Nasopharyngeal Respiratory Panel (PCR) - Final 12/04/19 00:00 Urine, Clean Catch Streptococcus pneumoniae Antigen (M - Final 12/04/19 00:00 Urine, Clean Catch Legionella Antigen - Final Laboratory Results 12/03/19 20:00: WBC 7.7, RBC 4.88, Hgb 15.2, Hct 43.3, MCV 88.7, MCH 31.1, MCHC 35.1, RDW Std Deviation 41.3, RDW Coeff of Chip 12.7, Plt Count 177, MPV 11.9, Immature Gran % (Auto) 0.300, Neut % (Auto) 43.3 L, Lymph % (Auto) 45.6 H, [place] % (Auto) 8.1, Eos % (Auto) 1.9, Baso % (Auto) 0.8, Absolute Neuts (auto) 3.4, Absolute Lymphs (auto) 3.53, Nucleated RBC % 0 12/03/19 20:00: Sodium 137, Potassium 3.4 L, Chloride 103, Carbon Dioxide 24.0, Anion Gap 10, BUN 14, Creatinine 1.72 H, Estim Creat Clear Calc 53.89, Est GFR (MDRD) Af Amer 54 L, Est GFR (MDRD) Non-Af 44 L, BUN/Creatinine Ratio 8.1 L, Glucose 379 H, Calcium 9.1, Troponin I < 0.015 12/03/19 20:00: Magnesium 1.5 L, Ferritin 337, Total Bilirubin 0.50, Direct Bilirubin 0.14, AST 13 L, ALT 24, Alkaline Phosphatase 81, Lactate Dehydrogenase 153, C-React Prot Ext Range < 2.90, Total Protein 6.7, Albumin 3.7, Globulin 3.0 12/03/19 20:00: Procalcitonin 0.07 12/03/19 20:25: Lactic Acid 4.3 H* 12/03/19 21:50: Urine Color Yellow, Urine Clarity Sl. Cloudy, Urine pH 5.0, Ur Specific [place] 1.015, Urine Protein 100 H, Urine Glucose (UA) 1000 H, Urine Ketones 5 H, Urine Occult Blood 50 H, Urine Nitrite Negative, Urine Bilirubin Negative, Urine Urobilinogen Normal, Ur Leukocyte Esterase Negative, Urine RBC 5-10 SEEN, Urine WBC 0-5 SEEN, Ur Squamous Epith Cells 0-5 SEEN, Amorphous Sediment 1+ URATE, Urine Bacteria 0 SEEN, Hyaline Casts 0-5 SEEN, Urine Mucus 0 SEEN 12/03/19 23:26: POC Glucose 376 H 12/04/19 01:00: Lactic Acid 1.6 12/04/19 01:00: Troponin I 0.016 12/04/19 02:15: COVID-19 (TAVO) Cancelled 12/04/19 04:30: WBC 6.1, RBC 4.09 L, Hgb 12.6 L, Hct 35.9 L, MCV 87.8, MCH 30.8, MCHC 35.1, RDW Std Deviation 41.2, RDW Coeff of Chip 12.9, Plt Count 126 L, MPV 11.9, Immature Gran % (Auto) 0.200, Neut % (Auto) 44.2 L, Lymph % (Auto) 45.3 H, [place] % (Auto) 7.2, Eos % (Auto) 2.4, Baso % (Auto) 0.7, Absolute Neuts (auto) 2.7, Absolute Lymphs (auto) 2.78, Nucleated RBC % 0 12/04/19 04:30: Sodium 138, Potassium 3.4 L, Chloride 106, Carbon Dioxide 25.0, Anion Gap 7, BUN 16, Creatinine 0.81, Estim Creat Clear Calc 114.43, Est GFR (MDRD) Af Amer 128, Est GFR (MDRD) Non-Af 106, BUN/Creatinine Ratio 19.8, Glucose 316 H, Calcium 7.5 L, Total Bilirubin 0.30, AST 17, ALT 23, Alkaline Phosphatase 99, Troponin I < 0.015, Total Protein 5.7 L, Albumin 2.8 L, Globulin 2.9, Albumin/Globulin Ratio 1.0 12/04/19 06:52: POC Glucose 337 H 12/04/19 12:14: POC Glucose 291 H Diagnostic Data Abdomen/Pelvis CT 12/03/19 22:19 IMPRESSION: 1. 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 2. 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 3. Colonic diverticulosis with no evidence of associated diverticulitis. 4. The appendix appears normal. 5. Enlarged prostate containing calcifications. 6. There are prominent right pelvic vessels. 7. There are bilateral fat-containing inguinal hernias. Engorged blood vessels are seen in the right inguinal canal. 8. There is no evidence of free intra-abdominal or intrapelvic air or fluid. Report Electronically Signed: Miguel Schroeder MD at 23:28 EDT , Service support , Chest X-Ray 12/04/19 05:55 IMPRESSION: No evidence for acute cardiopulmonary pathology. Electronically Signed: Giuseppe Cee MD at 5:06 EDT , Service support , Current Medications Acetaminophen (Tylenol) 650 mg PO Q6H PRN PRN PRN Reason: Pain Score 1-10/Temp > 100.7 F Al Hydroxide/Mg Hydroxide (Mylanta Ii) 30 ml PO Q6H PRN PRN PRN Reason: Gastric Burning Albuterol Sulfate (Ventolin Aerosols) 2.5 mg INHALATION Q2H PRN PRN PRN Reason: Dyspnea, wheezing Aspirin (Ecotrin) 81 mg PO DAILY [facility] Last Admin: 12/04/19 09:23 Dose: 81 mg Documented by: Atorvastatin Calcium (Lipitor) 80 mg PO QHS [facility] Last Admin: 12/04/19 01:31 Dose: 80 mg Documented by: Azithromycin (Zithromax) 500 mg PO Q24 [facility] Last Admin: 12/04/19 09:23 Dose: 500 mg Documented by: Clopidogrel Bisulfate (Plavix) 75 mg PO DAILY [facility] Last Admin: 12/04/19 09:23 Dose: 75 mg Documented by: Dextrose (D50w Syringe) 0 gm IV X1 PRN; Protocol PRN Reason: Hypoglycemia Glucagon () 1 mg IM .X1 PRN PRN Reason: Hypoglycemia Guaifenesin (Robitussin) 10 ml PO Q4H PRN PRN PRN Reason: COUGH Heparin Sodium (Porcine) (Heparin Na) 5,000 unit SC Q12 [facility] Last Admin: 12/04/19 09:23 Dose: 5,000 unit Documented by: Hydralazine HCl (Apresoline Iv) 10 mg IV Q4H PRN PRN PRN Reason: SBP > 160 Ceftriaxone Sodium 2 gm/ (Sodium Chloride) 50 mls @ 100 mls/hr IV Q24 [facility] Last Infusion: 12/04/19 13:31 Dose: Infused Documented by: Sodium Chloride () 250 mls @ 15 mls/hr IV .[id number] PRN PRN Reason: Additional IVPB Infusion Insulin Glargine (Lantus (Bk)) 10 units SC 1100,2200 [facility] Last Admin: 12/04/19 13:02 Dose: 10 units Documented by: Insulin Human Lispro (Humalog Kwikpen (Bk)) 0 unit SC ACHS [facility]; Protocol Last Admin: 12/04/19 13:01 Dose: 6 units Documented by: Loratadine (Claritin) 10 mg PO DAILY [facility] Last Admin: 12/04/19 09:23 Dose: 10 mg Documented by: Melatonin (Melatonin) 3 mg PO QHS PRN PRN PRN Reason: INSOMNIA Morphine Sulfate () 2 mg IV Q3H PRN PRN PRN Reason: Pain Score 6-10/10 Last Admin: 12/04/19 06:32 Dose: 2 mg Documented by: Nitroglycerin (Nitrostat) 0.4 mg SUBLINGUAL Q5M PRN PRN Reason: CARDIAC/CHEST PAIN Ondansetron HCl (Zofran) 4 mg IV Q8H PRN PRN PRN Reason: NAUSEA/VOMITING Oxycodone HCl (Oxyir) 5 mg PO Q4H PRN PRN PRN Reason: Pain Score 4-5/10 Last Admin: 12/04/19 13:31 Dose: 5 mg Documented by: Pantoprazole Sodium (Protonix) 40 mg PO DAILY [facility] Last Admin: 12/04/19 09:23 Dose: 40 mg Documented by: Prochlorperazine Edisylate (Compazine Iv) 5 mg IV Q4H PRN PRN PRN Reason: Breakthrough Nausea/Vomiting Sodium Chloride () 10 - 40 ml IV UD PRN PRN Reason: SALINE FLUSH Last Admin: 12/04/19 13:01 Dose: 10 ml Documented by: Throat Lozenges (Cepacol Sore Throat Lozenge) 1 lozenge MUCOUS MEM Q2H PRN PRN PRN Reason: SORE THROAT STROKE Vital Signs/Narrative: Vital Signs Temp Pulse Resp BP Pulse Ox 12/04/19 13:00 98.1 F 88 18 143/102 H 95 Medical Necessity - Tobacco Use Smoking Status: Former smoker Assessment/Plan All Active Problems (Last Reviewed 02/15/19 @ 08:50 by Debra Brock) Chest pain (Acute) SIRS (systemic inflammatory response syndrome) (Acute) Lactic acidosis (Acute) Hypotension (Acute) History of coronary artery stent placement (Resolved 09/2016) Angina pectoris (Resolved) Arterial complication of procedure (Resolved) 1. SIRS criteria: * resolved. no evidence of infection * transient hypotension and lactic acidosis have resolved. * there was suspicion of viral syndrome, and COVID 19 screen was ordered. 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 * 2. Lactic acidosis: Resolved. Lactic acid went down from 4.3-1.6. 3. ÁLVARO: Creatinine was 1.72 on admission is now down to 0.81. 4. Hypokalemia: Potassium was 3.4 on admission. Replace and monitor. 5. Type 2 diabetes mellitus: Last A1c was 11.5.on metformin and lantus 22IU qgs at home. was put on lantus 10iU bid on admission.l ISS. accuchecks ACHS 6. Hypertension:. Was hypotensive on admission so home medications were held. Currently on IV hydralazine PRN. lisinopril on hold 7. Hyperlipidemia: On statin and vascepa 8. History of CVA: Aspirin, statin and Plavix. DVT prophylaxis: Heparin Inpatient E&M: [id number] [facility] L2
[2019-12-04 16:51] LABS: Bedside Glucose 258 mg/dL (70-110)
[2019-12-04] MEDS: Acetaminophen 325 MG Tablet 650 MG PO (17:58)
[2019-12-05 00:01] LABS: Bedside Glucose 325 mg/dL (70-110)
[2019-12-05 00:43] VITALS: PULSE 96
[2019-12-05] MEDS: 0.9% Saline Lock 10 ML Syringe IV ×3 (01:56→10:21)
[2019-12-05] MEDS: Morphine 2 MG/ML Syringe IV ×2 (01:56→07:05)
[2019-12-05] MEDS: Acetaminophen 325 MG Tablet 650 MG PO (01:56)
[2019-12-05 03:03] VITALS: PULSE 80
[2019-12-05 04:20] VITALS: BP 139/87; PULSE 75; RESP 14; TEMP 36.6; O2SAT 96
[2019-12-05] MEDS: oxyCODONE 5 MG Tablet PO ×2 (04:39→10:28)
--- NOTE | 2019-12-05 05:43 | NURSING ---
Around 21:50, pt became very agitated and was yelling at staff d/t waiting on pain medication. Pt was wanting to leave. This RN was able to give PRN pain medication and de-escalate the situation. No further issues this shift with patient behavior; patient has been pleasant since.
[2019-12-05] MEDS: Insulin Lispro 100 UNIT/ML INSULN.PEN SC ×2 (07:00→12:31)
[2019-12-05 07:15] LABS: Absolute Lymphocyte Count 2.76 X10^3/uL (0.83-4.51); Absolute Neutrophil Count 1.8 X10^3/uL (2.0-7.7); Basophil# 0.03 X10^3/uL; Basophil% 0.6 % (0-1); Eosinophil# 0.15 X10^3/uL; Hematocrit 39.9 % (40-54); Hemoglobin 13.8 g/dL (13.0-16.5); Lymphocyte # 2.76 X10^3/ul (4.0); Lymphocyte % 54.5 % (19-41); Mean Corp Hgb Conc 34.6 g/dL (32-36); Mean Corpuscular Hgb 30.4 pg (27.0-32.0); Mean Corpuscular Volume 87.9 fL (80-94); Mean Platelet Vol. 11.7 fl (6.2-12.0); Monocyte# 0.34 X10^3/uL; Monocyte% 6.7 % (0-10); NRBC Flagged by Analyzer 0 % (0-5); Neutrophil # 1.76 X10^3/uL (2.7-7.7); Neutrophil % 34.8 % (47-70); Platelet Count 131 K/mm3 (150-450); RBC Distribution Width CV 12.5 % (11.6-14.6); RBC Distribution Width SD 40.4 fl (35.1-43.9); Red Blood Count 4.54 M/mm3 (4.6-6.2); White Blood Count 5.1 K/mm3 (4.4-11.0)
[2019-12-05 07:16] LABS: Bedside Glucose 239 mg/dL (70-110)
[2019-12-05 07:49] LABS: Anion Gap 5 (5-15); BUN 6 mg/dL (7-18); Calcium,Total 8.2 mg/dL (8.5-10.1); Chloride 102 mmol/L (98-107); Creatinine, Serum 0.75 mg/dL (0.70-1.30); EST Glomerular Filtration Rate 115 mL/min (>60); Est Glom Filt Rate - Afr Amer 139 mL/min (>60); Estimated Creatinine Clearance 123.59 ml/min; Glucose 248 mg/dL (74-106); Magnesium 1.7 mg/dL (1.6-2.6); Potassium 3.2 mmol/L (3.5-5.1); Sodium Level 136 mmol/L (136-145)
[2019-12-05 07:50] VITALS: O2SAT 95
[2019-12-05] MEDS: Clopidogrel Bisulfate 75 MG Tablet PO (07:51)
[2019-12-05] MEDS: Pantoprazole Sodium 40 MG Tablet PO (07:51)
[2019-12-05] MEDS: Loratadine 10 MG Tablet PO (07:51)
[2019-12-05] MEDS: Azithromycin 250 MG Tablet 500 MG PO (07:52)
[2019-12-05] MEDS: Aspirin E.C. 81 MG Tablet PO (07:52)
[2019-12-05 08:10] VITALS: PULSE 79
--- NOTE | 2019-12-05 09:35 | DCINST_ITS ---
- Discharge Diagnoses Current Active Problems: Current Active and Chronic Problems (Last Reviewed 02/15/19 @ 08:50 by Debra Brock) SIRS (systemic inflammatory response syndrome) (Acute) Lactic acidosis (Acute) Hypotension (Acute) Former tobacco use (Chronic) GERD (gastroesophageal reflux disease) (Chronic) You will use the following diet at home:: Cardiac Your food should be the consistency of: Regular Your liquids should be the consistency of: Regular/Thin Discharge Activity: Return to Normal Activity Weight Bearing Status: Weight bearing as tolerated Call your doctor if you observe: Shortness of breath, Dizziness, Uncontrolled pain Instructions: Low Blood Pressure (Hypotension) Allergies/Adverse Reactions: Allergies No Known Allergies Allergy (Verified 11/15/19 20:14) Medications to take at Discharge Clopidogrel Bisulfate [Plavix] 75 mg PO DAILY 06/11/16 Carvedilol 6.25 mg PO BID 01/09/18 Ranitidine [Zantac] 150 mg PO QHS 01/09/18 Loratadine 10 mg PO DAILY 02/28/18 Insulin Glargine,Hum.rec.anlog [Basaglar Kwikpen U-100] 22 unit SQ QHS 02/11/19 Aspirin [Aspirin EC] 81 mg PO DAILY #30 tablet.dr 03/23/19 Lisinopril [Zestril] 10 mg PO DAILY 08/01/19 Atorvastatin Calcium 80 mg PO DAILY 11/15/19 Metformin HCl 500 mg PO BID 11/15/19 Pantoprazole Sodium [Protonix] 40 mg PO DAILY 11/15/19 Icosapent Ethyl [Vascepa] 1 gm PO BID #60 cap 11/16/19 Potassium Chloride 20 meq PO DAILY #20 tab.er.prt 12/05/19 The following prescriptions were given: Potassium Chloride 20 meq PO DAILY #20 tab.er.prt Transmission Status: Received by [facility] Primary Care Physician: Trang He MD [Primary Care Provider] - Please follow up with your Primary Care Physician in: 1-2 weeks Test Results: Test results from this visit will be discussed in further detail at your follow- up appointment, if applicable. Proposed Discharge Date: 12/05/19
[2019-12-05 10:15] VITALS: BP 158/101; PULSE 87; RESP 15; TEMP 36.6; O2SAT 97
--- NOTE | 2019-12-05 10:47 | DS.PCM_ITS ---
Discharge Date and Diagnosis - Problem List Patient Problems: Active and Suspected Problems (Last Reviewed 02/15/19 @ 08:50 by Debra Brock) SIRS (systemic inflammatory response syndrome) (Acute) Lactic acidosis (Acute) Hypotension (Acute) Date of Admission: 12/03/19 Date of Discharge: 12/05/19 - Primary Discharge Diagnosis Active and Suspected Problems (Last Reviewed 02/15/19 @ 08:50 by Debra Brock) SIRS (systemic inflammatory response syndrome) (Acute) Lactic acidosis (Acute) Hypotension (Acute) - Secondary Discharge Diagnosis Chronic Problems (Last Reviewed 02/15/19 @ 08:50 by Debra Brock) History of stroke (Chronic) Acute embolic stroke (Chronic) Stroke (Chronic) Former tobacco use (Chronic) GERD (gastroesophageal reflux disease) (Chronic) Old myocardial infarction (Chronic) Nicotine dependence (Chronic) Atherosclerosis of coronary artery of [place] heart without angina pectoris (Chronic) Essential (primary) hypertension (Chronic) HLD (hyperlipidemia) (Chronic) Hospital Course and Treatment Imaging Results: Diagnostic Data Abdomen/Pelvis CT 12/03/19 22:19 IMPRESSION: 1. 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 2. 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 3. Colonic diverticulosis with no evidence of associated diverticulitis. 4. The appendix appears normal. 5. Enlarged prostate containing calcifications. 6. There are prominent right pelvic vessels. 7. There are bilateral fat-containing inguinal hernias. Engorged blood vessels are seen in the right inguinal canal. 8. There is no evidence of free intra-abdominal or intrapelvic air or fluid. Report Electronically Signed: Miguel Schroeder MD at 23:28 EDT , Service support , Chest X-Ray 12/04/19 05:55 IMPRESSION: No evidence for acute cardiopulmonary pathology. Electronically Signed: Giuseppe Cee MD at 5:06 EDT , Service support , Operations: None Procedures: None Summary of Care Provided: The patient is a 54 year old M with a past medical history as listed who was admitted through the ED on 12/03/2019 with a complaint of chest and rib pain with associated nausea and vomiting and generalized body pain. He also had abdominal pain and intermittent diarrhea as well as a dry cough. He had no fever or chills. On admission in the ED, blood pressure was 78/48 which improved to 92/56 with hydration. Hemoglobin was 15.1 white cell count was 7.7. Lactic acid was 4.3 initial troponin was negative. Chest x-ray showed no acute cardiopulmonary findings and EKG showed sinus tachycardia with no acute ST changes. UA was negative for UTI. He was admitted and managed for hypotension and lactic acidosis of unclear etiology. He also had positive SIRS criteria though there was no clear evidence of infection. He was started on IV ceftriaxone and azithromycin admitted to the ICU on account of hypotension and lactic acidosis. COVID screen was ordered but this was subsequently canceled by lumber grader as patient was not having any clear risk factors for covered and did not have any symptoms that fit towards comfort. Patient's hypotension resolved and lactic acidosis resolved with IV fluid administration. He was transferred out of the ICU on 12/04/2019. Patient remained stable and only complained of generalized pain and charley horse of his lower extremities which he said was episodic and had been going on for about a year. He had mild hypokalemia with potassium of 3.2 on day of discharge which was replaced. Patient's atorvastatin was stopped as he had been started on icosapent during previous admission and both could cause myalgia. He had been started on icosapent on account of marked hypertriglyceridemia. Patient remained stable and was discharged home on 12/05/2019. He was counseled to follow-up with his primary care doctor and would likely need a referral to chronic pain management as he says he has been smoking weed for years to help control his generalized pain. Patient seen and examined prior to discharge. He had no complaints. Review of stems otherwise negative. Labs and vitals reviewed. Home medication reviewed and reconciled. o/e: Vital Signs Temp Pulse Resp BP Pulse Ox 98 F 87 15 158/101 H 97 12/05/19 10:15 12/05/19 10:15 12/05/19 10:15 12/05/19 10:15 12/05/19 10:15 General: Alert, Oriented x3, Cooperative, No apparent distress HEENT: Atraumatic, PERRLA, EOMI, Normocephalic Oral: Moist Mucosa Neck: Supple, No JVD, Negative Carotid Bruits Lungs: Clear to auscultation, Normal air movement, No rhonchi, No wheeze Cardiovascular: Regular rate, Regular Rhythm, Normal S1, Normal S2, No murmurs Abdomen: Bowel Sounds Present, Soft, Non Tender Extremities: No clubbing, No cyanosis, No edema, Capillary Refill Less than 3 Seconds Skin: No rashes, No breakdown Musculoskeletal: No Tenderness to Palpation of Joints or Extremities Lymphatic: No Cervical, Supraclavicular, or Inguinal Adenopathy Neurological: Cranial nerves II-XII grossly intact, Neuro grossly intact, Motor Exam 5/5 strength throughout Psych/Mental Status: Normal Affect, Appropriate, Alert and oriented to time, place, person, mood and affect Plan is to dc home today. Patient Problems: Active and Suspected Problems (Last Reviewed 02/15/19 @ 08:50 by Debra Brock) SIRS (systemic inflammatory response syndrome) (Acute) Lactic acidosis (Acute) Hypotension (Acute) - Physical Exam Vitals/I&O's: Vital Signs Temp Pulse Resp BP Pulse Ox 98 F 87 15 158/101 H 97 12/05/19 10:15 12/05/19 10:15 12/05/19 10:15 12/05/19 10:15 12/05/19 10:15 Oxygen Delivery Method Room Air Weight: 233 lb 0.458 oz Body Mass Index (BMI) 30.5 Finger Stick Blood Glucose 234 Intake and Output for Last 24 Hours 12/03/19 12/04/19 12/05/19 23:59 23:59 23:59 Intake Total 1999 5067 / 5067 962 / 962 Output Total 1725 / 1725 Balance 1999 3342 / 3342 962 / 962 Microbiology Past 72 Hours 12/04/19 02:15 Mucosa - Nasopharyngeal Respiratory Panel (PCR) - Final 12/04/19 00:00 Urine, Clean Catch Streptococcus pneumoniae Antigen (M - Final 12/04/19 00:00 Urine, Clean Catch Legionella Antigen - Final Laboratory Results 12/04/19 12:14: POC Glucose 291 H 12/04/19 16:34: POC Glucose 258 H 12/04/19 23:04: POC Glucose 325 H 12/05/19 06:50: WBC 5.1, RBC 4.54 L, Hgb 13.8, Hct 39.9 L, MCV 87.9, MCH 30.4, MCHC 34.6, RDW Std Deviation 40.4, RDW Coeff of Chip 12.5, Plt Count 131 L, MPV 11.7, Immature Gran % (Auto) 0.400, Neut % (Auto) 34.8 L, Lymph % (Auto) 54.5 H, [place] % (Auto) 6.7, Eos % (Auto) 3.0, Baso % (Auto) 0.6, Absolute Neuts (auto) 1.8 L, Absolute Lymphs (auto) 2.76, Nucleated RBC % 0 12/05/19 06:50: Sodium 136, Potassium 3.2 L, Chloride 102, Carbon Dioxide 29.0, Anion Gap 5, BUN 6 L, Creatinine 0.75, Estim Creat Clear Calc 123.59, Est GFR (MDRD) Af Amer 139, Est GFR (MDRD) Non-Af 115, BUN/Creatinine Ratio 8.0 L, Glucose 248 H, Calcium 8.2 L, Magnesium 1.7 12/05/19 06:57: POC Glucose 239 H Current Medications Acetaminophen (Tylenol) 650 mg PO Q6H PRN PRN PRN Reason: Pain Score 1-10/Temp > 100.7 F Last Admin: 12/05/19 01:56 Dose: 650 mg Documented by: Al Hydroxide/Mg Hydroxide (Mylanta Ii) 30 ml PO Q6H PRN PRN PRN Reason: Gastric Burning Albuterol Sulfate (Ventolin Aerosols) 2.5 mg INHALATION Q2H PRN PRN PRN Reason: Dyspnea, wheezing Aspirin (Ecotrin) 81 mg PO DAILY [facility] Last Admin: 12/05/19 07:52 Dose: 81 mg Documented by: Atorvastatin Calcium (Lipitor) 80 mg PO QHS [facility] Last Admin: 12/04/19 23:10 Dose: 80 mg Documented by: Azithromycin (Zithromax) 500 mg PO Q24 [facility] Last Admin: 12/05/19 07:52 Dose: 500 mg Documented by: Clopidogrel Bisulfate (Plavix) 75 mg PO DAILY [facility] Last Admin: 12/05/19 07:51 Dose: 75 mg Documented by: Dextrose (D50w Syringe) 0 gm IV X1 PRN; Protocol PRN Reason: Hypoglycemia Glucagon () 1 mg IM .X1 PRN PRN Reason: Hypoglycemia Guaifenesin (Robitussin) 10 ml PO Q4H PRN PRN PRN Reason: COUGH Heparin Sodium (Porcine) (Heparin Na) 5,000 unit SC Q12 [facility] Last Admin: 12/05/19 10:19 Dose: Not Given Documented by: Hydralazine HCl (Apresoline Iv) 10 mg IV Q4H PRN PRN PRN Reason: SBP > 160 Ceftriaxone Sodium 2 gm/ (Sodium Chloride) 50 mls @ 100 mls/hr IV Q24 [facility] Last Admin: 12/05/19 10:21 Dose: 100 mls/hr Documented by: Sodium Chloride () 250 mls @ 15 mls/hr IV .[id number] PRN PRN Reason: Additional IVPB Infusion Insulin Glargine (Lantus ([facility])) 10 units SC 1100,2200 [facility] Last Admin: 12/04/19 23:09 Dose: 10 units Documented by: Insulin Human Lispro (Humalog Kwikpen ([facility])) 0 unit SC ACHS [facility]; Protocol Last Admin: 12/05/19 07:00 Dose: 4 units Documented by: Loratadine (Claritin) 10 mg PO DAILY [facility] Last Admin: 12/05/19 07:51 Dose: 10 mg Documented by: Melatonin (Melatonin) 3 mg PO QHS PRN PRN PRN Reason: INSOMNIA Morphine Sulfate () 2 mg IV Q3H PRN PRN PRN Reason: Pain Score 6-10/10 Last Admin: 12/05/19 07:05 Dose: 2 mg Documented by: Nitroglycerin (Nitrostat) 0.4 mg SUBLINGUAL Q5M PRN PRN Reason: CARDIAC/CHEST PAIN Ondansetron HCl (Zofran) 4 mg IV Q8H PRN PRN PRN Reason: NAUSEA/VOMITING Oxycodone HCl (Oxyir) 5 mg PO Q4H PRN PRN PRN Reason: Pain Score 4-5/10 Last Admin: 12/05/19 10:28 Dose: 5 mg Documented by: Pantoprazole Sodium (Protonix) 40 mg PO DAILY [facility] Last Admin: 12/05/19 07:51 Dose: 40 mg Documented by: Prochlorperazine Edisylate (Compazine Iv) 5 mg IV Q4H PRN PRN PRN Reason: Breakthrough Nausea/Vomiting Sodium Chloride () 10 - 40 ml IV UD PRN PRN Reason: SALINE FLUSH Last Admin: 12/05/19 10:21 Dose: 10 ml Documented by: Throat Lozenges (Cepacol Sore Throat Lozenge) 1 lozenge MUCOUS MEM Q2H PRN PRN PRN Reason: SORE THROAT Discharge Diet: Low fat/ Low Cholesterol Discharge Activity: Return to Normal Activity Weight Bearing Status: Weight bearing as tolerated Call your doctor if you observe: Shortness of breath, Dizziness, Uncontrolled pain Home Medications: Medications to take at Discharge Clopidogrel Bisulfate [Plavix] 75 mg PO DAILY 06/11/16 Carvedilol 6.25 mg PO BID 01/09/18 Ranitidine [Zantac] 150 mg PO QHS 01/09/18 Loratadine 10 mg PO DAILY 02/28/18 Insulin Glargine,Hum.rec.anlog [Basaglar Kwikpen U-100] 22 unit SQ QHS 02/11/19 Aspirin [Aspirin EC] 81 mg PO DAILY #30 tablet.dr 03/23/19 Lisinopril [Zestril] 10 mg PO DAILY 08/01/19 Metformin HCl 500 mg PO BID 11/15/19 Pantoprazole Sodium [Protonix] 40 mg PO DAILY 11/15/19 Icosapent Ethyl [Vascepa] 1 gm PO BID #60 cap 11/16/19 Potassium Chloride 20 meq PO DAILY #20 tab.er.prt 12/05/19 Following Prescrptions Were Given to Patient: Potassium Chloride 20 meq PO DAILY #20 tab.er.prt Transmission Status: Received by [facility] Primary Care Physician: Trang He MD [Primary Care Provider] - Please follow up with your Primary Care Physician in: 1-2 weeks Please Follow Up With: Trang He MD Patient Instructions: Low Blood Pressure (Hypotension) Disposition: Home Minutes spent on discharge:: 35 Patient Condition:: Stable Medical Necessity - Tobacco Use Smoking Status: Former smoker Meaningful Use Info Meaningful Use Diagnoses (Choose all that apply): None applicable Inpatient E&M: [id number] [facility]
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
[2019-12-05 12:40] LABS: Bedside Glucose 265 mg/dL (70-110)
--- NOTE | 2019-12-06 08:25 | PCA ---
Patient forgot his discharge paperwork down at the Main Entrance, sent it in the mail to address on file.
--- NOTE | 2019-12-06 13:16 | CASEMGMT ---
[facility]ER Discharge F/U Phone Call LACE: 12 Strata: 3 Discharge date: 12/05/2019 Call date: 12/06/2019 Call time: 1316 Admission dx: SIRS, lactic acidosis, hypotensive, ÁLVARO, N/V/D Pt states has been doing 'Ok' since discharge but has been 'hurting.' Pt states no questions regarding discharge instructions/medications at this time. Pt states he is driving car while talking to this RN KRISHNA and states 'I don't know why my GPS keeps going off.' Pt would like continue to answer questions at this time. Pt states has f/u appt made and plans to keep at this time but then also states 'I still got to look at that paperwork they gave me.' Pt states some concerns with delay in people answering call lights while here. Pt states no further questions/concerns/needs at this time and thanks this RN KRISHNA for the call. SStjb ROSE CM
== END 2019-12-05 13:40 | disposition home or self-care (01) | DRG 315 ==
LOC: ED 20:08 → ICU 22:42 → PCU 12-04 14:49
PROVIDERS: Admitting Provider Family Medicine; Emergency Provider Emergency Medicine; PCP Internal Medicine; Visit Provider Student in an Organized Health Care Education/Training Program
DX: I95.9 Hypotension, unspecified (principal); R65.10 Systemic inflammatory response syndrome (SIRS) of non-infectious origin without acute organ dysfunction; E87.2 Acidosis; N17.9 Acute kidney failure, unspecified; K21.9 Gastro-esophageal reflux disease without esophagitis; E78.5 Hyperlipidemia, unspecified; I25.2 Old myocardial infarction; I25.10 Atherosclerotic heart disease of native coronary artery without angina pectoris; I10 Essential (primary) hypertension; E11.319 Type 2 diabetes mellitus with unspecified diabetic retinopathy without macular edema; E87.6 Hypokalemia; E66.9 Obesity, unspecified; G89.4 Chronic pain syndrome; E11.65 Type 2 diabetes mellitus with hyperglycemia; Z87.891 Personal history of nicotine dependence; Z95.5 Presence of coronary angioplasty implant and graft; Z86.73 Personal history of transient ischemic attack (TIA), and cerebral infarction without residual deficits; Z68.30 Body mass index [BMI] 30.0-30.9, adult
CPT/HCPCS: 36415; 71045; 74176; 80048; 80053; 80076; 81001; 82728; 82962; 83605; 83615; 83735; 84145; 84484; 85025; 86140; 87040; 87449; 87633; 87635; 93005; 96361; 96365; 99285; J7030; A4216; J0696; U0004

== ENCOUNTER 2019-12-07 10:21 | Emergency (ER) | payer MEDICARE, MEDICAID, SELFPAY ==
[2019-12-03 23:22] VITALS: BMI 30.5
[2019-12-07 10:23] VITALS: BP 133/82; PULSE 123; RESP 12; TEMP 36.9; O2SAT 96; BMI 31.7
--- NOTE | 2019-12-07 10:23 | EKG12_ITS ---
Test Reason : CP Blood Pressure : / mmHG Vent. Rate : 118 BPM Atrial Rate : 118 BPM P-R Int : 154 ms QRS Dur : 084 ms QT Int : 328 ms P-R-T Axes : 061 120 076 degrees QTc Int : 459 ms Sinus tachycardia Inferior-posterior infarct , age undetermined Abnormal ECG Confirmed by DANIEL GIBSON, MARIAM ([id number]), online content editor WILLEM IGNACIO ([id number]) on 12/12/2019 9:14:59 AM Referred By: PREMA Confirmed By:WADE SANCHEZ MD
--- NOTE | 2019-12-07 10:23 | RAD_ITS ---
STUDY: X-RAY CHEST REASON FOR EXAM: Male, 54 years old. CHEST PAIN AFTER STRESSFUL EPISODE THIS MORNING TECHNIQUE: Single AP portable view of the chest. COMPARISON: None. FINDINGS: There is ill-defined groundglass opacity in the left lung base most likely represent partial atelectasis is unchanged since the previous study. There is no demonstrated pleural abnormality. Normal size heart. Normal mediastinum and sang. Normal visualized pulmonary arteries. Normal visualized aortic arch and descending thoracic aorta. Normal visualized thoracic spine. There is degenerative osteoarthritis of the bilateral shoulders. There is no demonstrated abnormality of the visualized soft tissue structures of the upper abdomen. RAD/Chest 1 View (Portable) IMPRESSION: There is no acute chest disease. Electronically Signed: Miller Harmon, at 11:25 EDT Tel , Service support ,
[2019-12-07 10:33] VITALS: O2SAT 99
[2019-12-07 10:34] LABS: Absolute Lymphocyte Count 2.17 X10^3/uL (0.83-4.51); Absolute Neutrophil Count 3.3 X10^3/uL (2.0-7.7); Basophil# 0.03 X10^3/uL; Basophil% 0.5 % (0-1); Eosinophil# 0.15 X10^3/uL; Eosinophils% 2.5 % (0-5); Hematocrit 41.5 % (40-54); Hemoglobin 14.5 g/dL (13.0-16.5); Lymphocyte # 2.17 X10^3/ul (4.0); Lymphocyte % 35.6 % (19-41); Mean Corp Hgb Conc 34.9 g/dL (32-36); Mean Corpuscular Hgb 30.3 pg (27.0-32.0); Mean Corpuscular Volume 86.8 fL (80-94); Mean Platelet Vol. 11.5 fl (6.2-12.0); Monocyte% 6.6 % (0-10); NRBC Flagged by Analyzer 0 % (0-5); Neutrophil # 3.33 X10^3/uL (2.7-7.7); Neutrophil % 54.6 % (47-70); Platelet Count 171 K/mm3 (150-450); RBC Distribution Width CV 12.8 % (11.6-14.6); RBC Distribution Width SD 40.7 fl (35.1-43.9); Red Blood Count 4.78 M/mm3 (4.6-6.2); White Blood Count 6.1 K/mm3 (4.4-11.0)
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
[2019-12-07 10:49] LABS: Anion Gap 9 (5-15); BUN 16 mg/dL (7-18); BUN/Creat Ratio 16.5 RATIO (10-20); Calcium,Total 9.6 mg/dL (8.5-10.1); Chloride 104 mmol/L (98-107); Creatinine, Serum 0.97 mg/dL (0.70-1.30); EST Glomerular Filtration Rate 86 mL/min (>60); Est Glom Filt Rate - Afr Amer 104 mL/min (>60); Estimated Creatinine Clearance 95.56 ml/min; Glucose 422 mg/dL (74-106); Sodium Level 138 mmol/L (136-145)
[2019-12-07 11:22] VITALS: BP 149/81; PULSE 115; RESP 20; O2SAT 98
--- NOTE | 2019-12-07 11:29 | ED.DEP ---
ED Disposition - Plan for ED Patient: Disposition: Home or Assisted Living Instructions: ED Chest Pain Atypical Unkn Cause Referrals: Trang He MD [Primary Care Provider] - As Needed Additional Instructions: Return if feeling worse. Otherwise follow-up with your primary care physician. Take your medications as prescribed. Watch your blood sugars closely. Today your blood sugar was elevated at 422.
[2019-12-07] MEDS: Insulin Lispro 100 UNIT/ML INSULN.PEN 10 UNIT SC (11:41)
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
[2019-12-07 12:44] VITALS: BP 147/98; PULSE 82; RESP 18; O2SAT 97
--- NOTE | 2019-12-07 12:44 | ED.RN ---
THIS NURSE REVIEWED D/C INSTRUCTIONS WITH PT. PT VERBALIZED UNDERSTANDING OF INSTRUCTIONS. IV D/C. IV CATHETER INTACT. PT TOLERATED WELL. PT DENIES FURTHER NEEDS OR QUESTIONS AT THIS TIME. PT AMBULATES FROM ROOM ON OWN WITHOUT ASSISTANCE FROM STAFF
== END 2019-12-07 12:46 | disposition home or self-care (01) ==
PROVIDERS: Emergency Provider Emergency Medicine; PCP Internal Medicine
DX: R07.89 Other chest pain (principal); E11.9 Type 2 diabetes mellitus without complications; I25.10 Atherosclerotic heart disease of native coronary artery without angina pectoris; I10 Essential (primary) hypertension; Z95.5 Presence of coronary angioplasty implant and graft; Z79.4 Long term (current) use of insulin
CPT/HCPCS: 71045; 80048; 84484; 85025; 93005; 99285

== ENCOUNTER 2019-12-10 01:22 | Emergency (ER) | payer MEDICARE, MEDICAID, SELFPAY ==
[2019-12-10 01:23] VITALS: BP 146/93; PULSE 97; RESP 18; TEMP 36.6; O2SAT 96; BMI 32.1
--- NOTE | 2019-12-10 01:42 | RAD_ITS ---
STUDY: X-RAY CHEST REASON FOR EXAM: Male, 54 years old. CP TECHNIQUE: Single AP portable view of the chest. COMPARISON: 12/07/2019. FINDINGS: There is decreased inspiratory effort with mild vascular crowding, otherwise lung christianson are clear. There is no demonstrated pleural abnormality. Normal size heart. Normal mediastinum and sang. Normal visualized pulmonary arteries. Normal visualized aortic arch and descending thoracic aorta. Normal visualized thoracic spine. There is degenerative osteoarthritis of the bilateral shoulders. There is no demonstrated abnormality of the visualized soft tissue structures of the upper abdomen. RAD/Chest 1 View (Portable) IMPRESSION: No acute cardiopulmonary disease. Electronically Signed: Melodie Denise MD at 2:04 EDT , Service support ,
--- NOTE | 2019-12-10 01:42 | EKG12_ITS ---
Test Reason : CP Blood Pressure : / mmHG Vent. Rate : 091 BPM Atrial Rate : 091 BPM P-R Int : 158 ms QRS Dur : 092 ms QT Int : 374 ms P-R-T Axes : 046 114 080 degrees QTc Int : 460 ms Normal sinus rhythm Possible Right ventricular hypertrophy Abnormal ECG Confirmed by EDUARDO GIBSON, DEVYN ([id number]), metropolitan editor WILLEM IGNACIO ([id number]) on 12/12/2019 9:05:23 AM Referred By: DR LLOYD Confirmed By:DEVYN CLARK MD
--- NOTE | 2019-12-10 01:43 | ED.DCSUM_ITS ---
- ER Visit Summary Date of Service: 12/10/19 Chief Complaint: Whole body pain History of Present Illness: The patient is a 54 M significant history of for prior strokes, CAD and GA with audible cardiac stents. Patient has a lot of drama going on at his home. He is recently moved out. He and his girlfriend have been having difficulties along with her mother. He is in the middle of trying to find a place to stay and is currently living in his truck. He had a recent hospitalization. States his whole body hurts including his chest. But also his arms and legs and back. He was admitted several days ago and discharged. He was seen in the emergency department since that and discharge. Physical Examination: Middle-aged male no acute distress vital signs are stable and afebrile. He does not look septic or toxic. Pulse ox 96% on room air no signs of hypoxia. HEENT exam unremarkable. Neck nontender no JVD. No lymphadenopathy. Lungs are to auscultation bilaterally. Heart regular rate and rhythm rate about 90 no murmur. Chest wall is diffusely tender. Abdomen soft nontender normal bowel sounds no peritoneal signs. Extremities moves all 4. Calves are nontender without edema or cords. Neurologically is awake and alert. He is moving all 4 extremities. He has no focal motor deficits at this time. Test Results: EKG shows normal sinus rhythm rate of 91 with no acute signs of GA or ischemia. CBC normal white count of 6. Hemoglobin 13. Electrolytes unremarkable normal creatinine and gap of 6. Blood sugar is elevated he is diabetic but his sugars 556. That reason he will be given subcu insulin. Troponin normal. Chest x-ray shows normal cardiac silhouette mediastinum. No acute abnormality read both by myself and the radiologist. It was a portable 1 view. Emergency Department Course and Treatment: Clinically I think this patient's more emotionally upset than true medical pathology. He will be worked up due to his prior cardiac history but I have a very low suspicion this is actually cardiac etiology. He has reproducible muscle skeletal arm and leg pain and chest wall pain. He will be treated with oral Tylenol. Repeat exam the patient is doing well at 2:57 AM. I explained the patient I did not have a specific cause for his musculoskeletal pain. He is requesting admission. I explained to him there is nothing to be admitted to the hospital for at this time. I also explained to him that I did not feel that narcotic pain medications were warranted at this time. Patient is being rude to the nursing staff and verbally abusive at times. Treatment Plan: Tylenol for pain. Follow-up. Watch blood sugars closely. Return if feeling worse. Disposition: Discharge Impression: Atypical noncardiac chest pain. Musculoskeletal pain History of diabetes with acute hyperglycemia History of CAD with prior GA and stents This note was generated with [employer] dictation software. It may contain incorrect words, spelling, and punctuation that were not noted in review of the chart prior to signing ED Disposition - Plan for ED Patient: Disposition: Home or Assisted Living Instructions: ED Chest Pain Atypical Unkn Cause Referrals: Trang He MD [Primary Care Provider] - As soon as possible Additional Instructions: Your labs today were unremarkable except your blood sugar is running way too high. Your blood sugar tonight was 556. You were given insulin here. You need to recheck your blood sugar tonight before you go to bed. Eat a snack before you go to bed. First thing in the morning recheck your blood sugar. Follow-up with your doctor. Return if feeling worse.
[2019-12-10 01:54] LABS: Absolute Lymphocyte Count 3.08 X10^3/uL (0.83-4.51); Basophil# 0.06 X10^3/uL; Basophil% 0.9 % (0-1); Eosinophil# 0.17 X10^3/uL; Eosinophils% 2.5 % (0-5); Hemoglobin 13.2 g/dL (13.0-16.5); Lymphocyte # 3.08 X10^3/ul (4.0); Lymphocyte % 44.9 % (19-41); Mean Corp Hgb Conc 34.7 g/dL (32-36); Mean Corpuscular Hgb 30.7 pg (27.0-32.0); Mean Corpuscular Volume 88.4 fL (80-94); Mean Platelet Vol. 11.6 fl (6.2-12.0); Monocyte# 0.51 X10^3/uL; Monocyte% 7.4 % (0-10); NRBC Flagged by Analyzer 0 % (0-5); Neutrophil # 3.02 X10^3/uL (2.7-7.7); Platelet Count 150 K/mm3 (150-450); RBC Distribution Width CV 12.5 % (11.6-14.6); RBC Distribution Width SD 40.2 fl (35.1-43.9); White Blood Count 6.9 K/mm3 (4.4-11.0)
[2019-12-10 02:29] LABS: Anion Gap 6 (5-15); BUN 15 mg/dL (7-18); BUN/Creat Ratio 14.4 RATIO (10-20); Chloride 103 mmol/L (98-107); Creatinine, Serum 1.04 mg/dL (0.70-1.30); EST Glomerular Filtration Rate 79 mL/min (>60); Est Glom Filt Rate - Afr Amer 96 mL/min (>60); Estimated Creatinine Clearance 89.12 ml/min; Glucose 556 mg/dL (74-106); Potassium 4.1 mmol/L (3.5-5.1); Sodium Level 135 mmol/L (136-145)
[2019-12-10 02:32] VITALS: BP 136/68; PULSE 89; RESP 18; O2SAT 94
--- NOTE | 2019-12-10 02:58 | ED.DEP ---
ED Disposition - Plan for ED Patient: Disposition: Home or Assisted Living Instructions: ED Chest Pain Atypical Unkn Cause Referrals: Trang He MD [Primary Care Provider] - As soon as possible Additional Instructions: Your labs today were unremarkable except your blood sugar is running way too high. Your blood sugar tonight was 556. You were given insulin here. You need to recheck your blood sugar tonight before you go to bed. Eat a snack before you go to bed. First thing in the morning recheck your blood sugar. Follow-up with your doctor. Return if feeling worse.
[2019-12-10 03:13] VITALS: BP 134/89; PULSE 87; RESP 18; O2SAT 93
--- NOTE | 2019-12-10 03:14 | ED.RN ---
PT REFUSING TO LEAVE WITH TULIO S. WENT TO GIVE INSULIN AND TYLENOL. PT STATES WE HAVE NOT ADDRESSED HIS PAIN. NO BODY CARES ABOUT MY GOD DAMN PAIN. PT NONCOMPLIANT WITH MEDS. PT HOMELESS. THIS IS HIS 3RD VISIT THIS WEEK. PT WANTED TO SEE MD AGAIN. DR. LLOYD AT BEDSIDE. THIS RN WENT INTO TAKE IV OUT, GIVE MEDS AND DISCHARGE PATIENT. INFORMED PT THAT HE NEEDED TO TREAT THE RNS WITH RESPECT AND WE ARE HERE TO HELP HIM. PT STATES HE'S LIKE THAT TO EVERYONE AND HE DID NOT TREAT TULIO WITH DISRESPECT. ASKED PT IF HE WANTED THE TYLENOL AND INSULIN, PT STATED NO AND DON'T CHARGE ME FOR IT. INFORMED PT HE WAS FREE TO LEAVE. SECURITY AT BEDSIDE FOR DISCHARGE. PT WALKED TO LOBBY HIMSELF.
== END 2019-12-10 03:17 | disposition home or self-care (01) ==
PROVIDERS: Emergency Provider Emergency Medicine; PCP Internal Medicine
DX: R07.89 Other chest pain (principal); M79.18 Myalgia, other site; E11.65 Type 2 diabetes mellitus with hyperglycemia; I25.10 Atherosclerotic heart disease of native coronary artery without angina pectoris; I10 Essential (primary) hypertension; Z79.4 Long term (current) use of insulin; Z95.5 Presence of coronary angioplasty implant and graft
CPT/HCPCS: 71045; 80048; 84484; 85025; 93005; 99284; A4216

== ENCOUNTER 2019-12-18 03:21 | Observation (INO) | payer MEDICARE, MEDICAID, SELFPAY ==
[2019-12-18] VITALS (18 sets, daily range): BP systolic 107–152; BP diastolic 65–88; PULSE 74–93; RESP 14–18; TEMP 36.1–36.9; O2SAT 93–96; BMI 31.0; BMI 31.1
--- NOTE | 2019-12-18 03:30 | HP.PCM_ITS ---
Problem List (1) History of stroke Status: Chronic (2) Acute embolic stroke Status: Chronic (3) Stroke Status: Chronic (4) Chest pain Status: Acute (5) Former tobacco use Status: Chronic (6) GERD (gastroesophageal reflux disease) Status: Chronic Qualifiers: Esophagitis presence: esophagitis presence not specified Qualified Code(s): K21.9 - Gastro-esophageal reflux disease without esophagitis (7) Old myocardial infarction Status: Chronic (8) Nicotine dependence Status: Chronic (9) Atherosclerosis of coronary artery of [place] heart without angina pectoris Status: Chronic Qualifiers: Coronary Disease-Associated Artery/Lesion type: unspecified vessel or lesion type Qualified Code(s): I25.10 - Atherosclerotic heart disease of [place] coronary artery without angina pectoris (10) Essential (primary) hypertension Status: Chronic (11) HLD (hyperlipidemia) Status: Chronic Qualifiers: Hyperlipidemia type: unspecified Qualified Code(s): E78.5 - Hyperlipidemia, unspecified History of Present Illness Date of Admission: 12/18/19 Chief Complaint: Chest pain The patient 54-year-old male with a significant history of CVA; former tobacco abuse; marijuana abuse; obesity; diabetes mellitus with retinopathy; CAD status post 7 coronary stents who went to [facility] emergency department for chest pain. Chest pain has been going on for about 2 weeks. Chest pain is substernal. It is a constant ache with intensity of around 5 occasionally it goes to 7 and 8. Apart from his constant achy chest pain he also have intermittent sharp stabbing pain 10 out of 10. He has been controlling his chest pain with marijuana. When it got to a point that marijuana could not help he went to [facility] emergency department. He reported his last marijuana use was 2 days ago. His chest pain radiates to his left rib and to his left forearm. Associated with his symptoms is shortness of breath. He denies any aggravating factors to the chest pain. Reportedly pain meds that he has been receiving during his frequent hospital/ED visits helps with his chest pain. Emergent department doctor discussed the case with hospitalist who recommended that emergent department doctor discuss the case with [facility] maintenance service dispatcher. Under Water Assistant all source collection manager at [facility] ([facility]) recommended that patient be accepted at [facility] and cardiology will follow in consult. Of note during the same month of November 2019 patient has been to [facility] emergency department/hospital multiple times for chest pain. Also patient was at also [facility] emergency department./hospital on 12/14/2019 to 12/15/2019. On 12/14/2019 to 12/15/2019 he was given 12 [place] tablets and the plan was to schedule a stress test for the following week as an outpatient. Reportedly he had a fall and injured the lower ribs on the side of his chest. Reportedly the pain was absolutely reproducible with light palpation. Patient reports a recent emotional stress with he breaking up with fianc?; of an aunt; of his dog for 19 1/2 years; and currently living in a shed. Patient reports noncompliance with his medications. He has strong family history of heart disease. His father had multiple heart attack and had a bypass. His father's heart disease began in his 40s. His father and his brother from a heart attack at age 59. Past Medical History Past Medical History (Chronic Problems): Chronic Problems (Last Reviewed 12/18/19 @ 03:[address] Bimal Abdul MD) History of stroke (Chronic) Acute embolic stroke (Chronic) Stroke (Chronic) Former tobacco use (Chronic) GERD (gastroesophageal reflux disease) (Chronic) Old myocardial infarction (Chronic) Nicotine dependence (Chronic) Atherosclerosis of coronary artery of [place] heart without angina pectoris (Chronic) Essential (primary) hypertension (Chronic) HLD (hyperlipidemia) (Chronic) Medical History: Medical History (Last Reviewed 12/18/19 @ 03:[address] Bimal Abdul MD) Old myocardial infarction (Chronic) I25.2 Nicotine dependence (Chronic) F17.200 Atherosclerosis of coronary artery of [place] heart without angina pectoris (Ch ronic) I25.10 Essential (primary) hypertension (Chronic) I10 HLD (hyperlipidemia) (Chronic) E78.5 CVA (cerebral vascular accident) I63.9 Diabetic retinopathy E11.319 GERD (gastroesophageal reflux disease) K21.9 Obesity (BMI 30.0-34.9) E66.9 Type 2 diabetes mellitus E11.9 Mental status alteration R41.82 Allergies No Known Allergies Allergy (Verified 11/15/19 20:14) Home Medications: Ambulatory Orders Medication Instructions Recorded Clopidogrel Bisulfate [Plavix] 75 mg PO DAILY 06/11/16 Carvedilol 6.25 mg PO BID 01/09/18 Ranitidine [Zantac] 150 mg PO QHS 01/09/18 Loratadine 10 mg PO DAILY 02/28/18 Insulin Glargine,Hum.rec.anlog 22 unit SQ QHS 02/11/19 [Basaglcarmen [place] U-100] Lisinopril [Zestril] 10 mg PO DAILY 08/01/19 Metformin HCl 500 mg PO BID 11/15/19 Pantoprazole Sodium [Protonix] 40 mg PO DAILY 11/15/19 Aspirin [Aspirin EC] 81 mg PO DAILY 12/18/19 Icosapent Ethyl [Vascepa] 1 gm PO BID 12/18/19 Potassium Chloride 20 meq PO DAILY 12/18/19 Surgical History: Surgical History (Last Reviewed 12/18/19 @ 03:[address] Bimal Abdul MD) History of coronary artery stent placement (Resolved) Onset Date: 09/2016 Z95.5 PCI-BREANNE-OM2; PCI-BREANNE x 2 Distal and Prox RCA; PCI-Cutting Balloon Angioplasty -ISR OM2 09/2016 History of elbow surgery Z98.890 History of left heart catheterization Onset Date: 11/08/17 Z98.890 Surgical History: angioplasty - coronary stent, - - LUE surgery, PCI, T+A. Psychiatric History: No pertinent psych hx Smoking Status: Former smoker Drugs: Marijuana - *Family History Sibling Family History: Family History (Last Reviewed 12/18/19 @ 03:[address] Bimal Abdul MD) Other Diabetes Heart disease Hypertension Myocardial infarction History Items: Heart Disease - Brother w/ CAD/CO in his 50s, fatal. Maternal Family History: Family History (Last Reviewed 12/18/19 @ 03:[address] Bimal Abdul MD) Other Diabetes Heart disease Hypertension Myocardial infarction History Items: Diabetes, - Paternal Family History: Family History (Last Reviewed 12/18/19 @ 03:[address] Bimal Abdul MD) Other Diabetes Heart disease Hypertension Myocardial infarction History Items: Diabetes, High Cholesterol, Heart Disease - CAD s/p CO in his 50s., Hypertension, - - diabetes, heart disease Review of Systems Constitutional: Denies: Chills, Fever, Weight Change HEENT: Denies: Head Aches, Sinus Congestion, Sinus Drainage Cardiovascular: Reports: Chest Pain. Denies: Palpitations Respiratory: Reports: Shortness of Breath. Denies: Cough, Shortness of breath at rest, Sputum production Gastrointestinal: Reports: Diarrhea, Nausea, Vomiting. Denies: Abdominal Pain Genitourinary: Denies: Dysuria Musculoskeletal: Denies: Joint Pain, Joint Tenderness Skin: Denies: Rash, Wounds Neurological: Denies: Numbness, Tingling, Focal weakness Psychiatric: Denies: Anxiety, Depression, Homicidal Ideations, Suicidal Ideations Hematologic/ Lymphatic: Denies: Easy Bruising, Easy Bleeding VTE Information - Inpt Only VTE Present on Admission: No VTE Mechan Device Prophylaxis: SCD's VTE Pharm Prophylaxis ordered?: No - Physical Exam Vitals/I&O's: Weight: 103.9 kg Body Mass Index (BMI) 31.0 Finger Stick Blood Glucose 234 General: Alert, Oriented x3, Cooperative HEENT: Atraumatic, PERRLA, EOMI, Normocephalic Neck: Supple, Trachea Midline Lungs: Clear to auscultation, Normal air movement, No rhonchi, No wheeze, No rales Cardiovascular: Regular rate, Normal S1, Normal S2, No murmurs Abdomen: Bowel Sounds Present, Soft, Non Tender Extremities: No edema, Capillary Refill Less than 3 Seconds Skin: No rashes, No breakdown Musculoskeletal: No Tenderness to Palpation of Joints or Extremities Neurological: Cranial nerves II-XII grossly intact Psych/Mental Status: Anxious Current Medications Sodium Chloride () 250 mls @ 15 mls/hr IV .[id number] PRN PRN Reason: Saline Flush Sodium Chloride () 250 mls @ 15 mls/hr IV .[id number] PRN PRN Reason: Additional IVPB Infusion Sodium Chloride () 10 - 40 ml IV UD PRN PRN Reason: SALINE FLUSH Assessment/Plan All Active Problems (Last Reviewed 12/18/19 @ 03:[address] Bimal Abdul MD) Chest pain (Acute) History of coronary artery stent placement (Resolved 09/2016) Angina pectoris (Resolved) Arterial complication of procedure (Resolved) The patient 54-year-old male with a significant history of CVA; former tobacco abuse; marijuana abuse; obesity; diabetes mellitus with retinopathy; CAD status post coronary stents who was transferred from [facility] emergency department for recurrent chest pain in the setting of a recent negative stress test for ischemia. Chest pain Heart score: 4 points, moderate: Positive for (moderate suspicion, age 45-64, more or equal 3 risk factors or history of atherosclerotic disease) Chemical stress test on 11/16/2019: Gated ejection fraction of 54%. Evidence of inferior lateral infarct noted. No obvious ischemia was present. Echocardiogram on 03/21/2019: Left ventricular ejection fraction was 50%. Diastolic function was indeterminate. Reportedly the study was technically difficult. Place on a monitored bed at PCU CXR from outside hospital ED independently reviewed confirms no acute car diopulmonary process. EKG independently reviewed confirms sinus rhythm ASA 81 mg p.o. daily. Plavix continued Reports headache with nitroglycerin. Will not order nitroglycerin at this time. Morphine as needed for pain. Resume Coreg and lisinopril. On home med list is Icosapent . No formulary at a hospital. Patient is noncompliant with recent medication anyway. Will start patient on Lipitor for now. Troponin at outside hospital ED was negative. Serial cardiac enzymes D-dimer at outside hospital was unremarkable. Electrolytes was unremarkable. Stat EKG as needed for chest pain We will keep n.p.o. Consult cardiology. Abnormal CT of abdomen and pelvis. Imaging was obtained on December 14, 2019. Reason for obtaining imaging was left flank pain. CT of abdomen and pelvis from outside hospital showed circumferential wall thickening of the visualized distal esophagus. Radiologist different diagnoses include gastritis or neoplasm. Endoscopy or barium esophagram she was advised. Recommend that when patient cardiac condition is resolved; patient be referred for an endoscopy. Nausea/vomiting/diarrhea Portal is been going on for 4 days. Likely second to gastritis. Zofran PRN ordered. Nursing communication: Place hat in toilet; educate patient and notify MD if patient has loose stools. Diabetes mellitus with retinopathy. With hyperglycemia. On Emergency department visit and hospitalization in November 2019 his blood glucose was severely high. On 12/17/[address] [facility] his blood glucose was in the 500s (576). He received 10 units of short acting insulin and his blood glucose dropped to 90s. Patient reported he has an insulin pen but he does not know how to use it. So on home medication list is metformin. Patient will put on n.p.o. for now. Accu-Chek every 4 hours with correction scale insulin. Hypertension On presentation blood pressure was within goal. Resume lisinopril and metoprolol. Trend blood pressure and adjust blood pressure medication as necessary. Marijuana abuse Counselled Tobacco abuse Reportedly he quits smoking later part of July 2019. Encouraged and counseled. DVT prophylaxis SCD while planning for cardiac work up for chest pain OBSV E&M: [id number] Initial observation care L3
--- NOTE | 2019-12-18 03:36 | EKG12_ITS ---
Test Reason : CP ADMIT Blood Pressure : / mmHG Vent. Rate : 080 BPM Atrial Rate : 080 BPM P-R Int : 158 ms QRS Dur : 088 ms QT Int : 384 ms P-R-T Axes : 022 108 078 degrees QTc Int : 442 ms Normal sinus rhythm Normal ECG Confirmed by IVETTE GIBSON, RON ([id number]), newspaper or periodical editor WILLEM IGNACIO ([id number] on 12/19/2019 9:46:31 AM Referred By: Bimal Abdul Confirmed By:RON STEELE MD
[2019-12-18] MEDS: Morphine 2 MG/ML Syringe IV ×3 (04:04→11:45)
[2019-12-18] MEDS: Atorvastatin Calcium 80 MG Tablet PO ×2 (06:16→21:29)
[2019-12-18] MEDS: Insulin Lispro 100 UNIT/ML INSULN.PEN SC ×3 (06:16→21:27)
[2019-12-18 06:21] LABS: Bedside Glucose 257 mg/dL (70-110)
[2019-12-18 08:20] LABS: Prothrombin Time (Protime)PT. 12.1 SECONDS (11.7-14.9)
[2019-12-18] MEDS: Aspirin E.C. 81 MG Tablet PO (08:26)
[2019-12-18] MEDS: Clopidogrel Bisulfate 300 MG Tablet PO (08:26)
[2019-12-18] MEDS: Lisinopril 10 MG Tablet PO (08:26)
[2019-12-18] MEDS: Pantoprazole Sodium 40 MG Tablet PO (08:26)
[2019-12-18] MEDS: Carvedilol 6.25 MG Tablet PO ×2 (08:26→21:29)
[2019-12-18] MEDS: 0.9% Saline Lock 10 ML Syringe IV (08:30)
--- NOTE | 2019-12-18 08:52 | CON.PCM_ITS ---
Problem List (1) Chest pain Status: Acute (2) CAD in [place] artery Status: Chronic (3) History of coronary artery stent placement Status: Resolved Comment: PCI-BREANNE-OM2; PCI-BREANNE x 2 Distal and Prox RCA; PCI- Cutting Balloon Angioplasty -ISR OM2 09/2016 (4) HLD (hyperlipidemia) Status: Chronic Qualifiers: Hyperlipidemia type: unspecified Qualified Code(s): E78.5 - Hyperlipidemia, unspecified (5) Essential (primary) hypertension Status: Chronic (6) Diabetes mellitus Status: Acute (7) GERD (gastroesophageal reflux disease) Status: Chronic Qualifiers: Esophagitis presence: esophagitis presence not specified Qualified Code(s): K21.9 - Gastro-esophageal reflux disease without esophagitis (8) Former tobacco use Status: Chronic Reason for Consult Date of Consultation: 12/18/19 History of Present Illness: The patient is a 54 year oldnvs-ubxp-zjc white male with a past cardiovascular history which is included underlying CAD, previous PA, previous PCI, hyperlipidemia, hypertension, diabetes mellitus, GERD, tobacco use, who presents for recurrent chest discomfort. He has previously been evaluated at [facility] in the past remotely and recently. More recently he presented for chest discomfort. He underwent evaluation and care with an exercise tolerance test/nuclear imaging study. The results are as noted below. This did not lead to repeat diagnostic cardiac catheterization. He was released home. He has had multiple [facility] emergency department evaluations since that time. These have been for recurrent chest discomfort. This included an evaluation last night. His evaluations have demonstrated negative troponin I levels and no report of acute ECG changes. He did have a CT scan performed at [facility] during the past week. Is raise concern of distal esophageal wall lrcomropmg-mdvrqgxtcgkkroo-pbli concerns of esophageal disease- neoplastic disease cannot be excluded. The patient presented back to [facility] last night for recurrent symptoms. He was again complaining of a combination of chest discomfort in the center of his chest being a aching hurting sensation. At the same time he states he has intermittent sharp discomfort. He has had associated nausea, emesis, as well as diarrhea. He has had concerns of chronic shortness of breath and dyspnea despite stating he discontinue tobacco use at approximately the beginning of this year and marijuana use recently. He has denied palpitations or rapid heart rates. There has been no near syncope or syncope. He states he has had multiple muscular skeletal discomforts as well throughout his entire body. He denies any fever, chills, or night sweats. During his previous [facility] hospitalization he was evaluated for possible COVID-19. It appears there was consideration of testing him although he apparently did not meet criteria as the test was not processed. The [facility] emergency department physician requested transfer of the patient to [facility] where he has been cared for in the past from a cardiovascular standpoint based upon his recurrent chest discomfort for consideration of repeat diagnostic cardiac catheterization as he has had no other definitive source thus far to explain his recurrent chest discomfort. His troponin I levels have been negative. His ECG demonstrated sinus rhythm with no acute ECG changes. A chest x-ray report demonstrated no acute cardiopulmonary disease process. His previous CT scan performed at [facility] is as noted. It did recommend that he be further evaluated with either EGD or potential barium swallow. The patient also notes he has been under a great deal of stress recently. He states he has had a variety of social economic issues. He has now from his fianc?e and family. He states that he has not been able to either obtain or maintain taking his medications as previously prescribed. [] Past Medical History Allergies/Adverse Reactions: Allergies No Known Allergies Allergy (Verified 11/15/19 20:14) Home Medications: Ambulatory Orders Medication Instructions Recorded Clopidogrel Bisulfate [Plavix] 75 mg PO DAILY 06/11/16 Carvedilol 6.25 mg PO BID 01/09/18 Ranitidine [Zantac] 150 mg PO QHS 01/09/18 Loratadine 10 mg PO DAILY 02/28/18 Insulin Glargine,Hum.rec.anlog 22 unit SQ QHS 02/11/19 [Basaglar Kwikpen U-100] Lisinopril [Zestril] 10 mg PO DAILY 08/01/19 Metformin HCl 500 mg PO BID 11/15/19 Pantoprazole Sodium [Protonix] 40 mg PO DAILY 11/15/19 Aspirin [Aspirin EC] 81 mg PO DAILY 12/18/19 Icosapent Ethyl [Vascepa] 1 gm PO BID 12/18/19 Potassium Chloride 20 meq PO DAILY 12/18/19 Past Medical History (Chronic Problems): Chronic Problems (Last Reviewed 12/18/19 @ 03:[address] Bimal Abdul MD) History of stroke (Chronic) Acute embolic stroke (Chronic) Stroke (Chronic) Former tobacco use (Chronic) GERD (gastroesophageal reflux disease) (Chronic) CAD in [place] artery (Chronic) Old myocardial infarction (Chronic) Nicotine dependence (Chronic) Atherosclerosis of coronary artery of [place] heart without angina pectoris (Chronic) Essential (primary) hypertension (Chronic) HLD (hyperlipidemia) (Chronic) Surgical History: angioplasty - coronary stent, - - LUE surgery, PCI, T+A. Psychiatric History: No pertinent psych hx - *Family History Sibling Family History: Family History (Last Reviewed 12/18/19 @ 03:[address] Bimal Abdul MD) Other Diabetes Heart disease Hypertension Myocardial infarction History Items: Heart Disease - Brother w/ CAD/PA in his 50s, fatal. Maternal Family History: Family History (Last Reviewed 12/18/19 @ 03:[address] Bimal Abdul MD) Other Diabetes Heart disease Hypertension Myocardial infarction History Items: Diabetes, - Paternal Family History: Family History (Last Reviewed 12/18/19 @ 03:[address] Bimal Abdul MD) Other Diabetes Heart disease Hypertension Myocardial infarction History Items: Diabetes, High Cholesterol, Heart Disease - CAD s/p PA in his 50s., Hypertension, - - diabetes, heart disease Smoking Status: Former smoker Drugs: Marijuana Review of Systems - Review of Systems General: Denies: Fever, Night Sweats, Fatigue Cardiovascular: Reports: Chest Discomfort at Rest, Chest Discomfort with Exertion, Shortness of Breath, Shortness of Breath at Rest, Shortness of Breath with Exertion. Denies: Chest Discomfort, Orthopnea, PND, Peripheral Edema, Palpitations, Lightheadedness, Dizziness, Near Syncope, Syncope Respiratory: Reports: Shortness of Breath. Denies: Cough, Sputum Production, Hemoptysis Gastrointestinal: Denies: Hematemesis, Hematochezia, Melena Genitourinary: Denies: Dysuria, Hematuria Muscoloskeletal: Reports: Joint Tenderness Skin: Denies: Rash Subjectve: This is a 54-year-old white male who appears resting comfortably at the moment in a supine position in no acute distress. Objective: Vital Signs Temp Pulse Resp BP Pulse Ox 97.9 F 80 14 110/75 93 12/18/19 03:00 12/18/19 07:47 12/18/19 03:00 12/18/19 03:00 12/18/19 06:50 Oxygen Delivery Method Room Air Weight: 229 lb 0.964 oz Body Mass Index (BMI) 31.0 Finger Stick Blood Glucose 234 Intake and Output for Last 24 Hours 12/16/19 12/17/19 12/18/19 23:59 23:59 23:59 Intake Total Output Total 0 / 0 Balance General: Awake, Alert, Oriented x 3, Cooperative, No Acute Distress HEENT: Atraumatic, Normocephalic, PERRL, EOMI, Sclera Non Icteric Oral: Moist Mucosa Neck: Supple, Good ROM, No JVD Lungs: Clear to auscultation Cardiovascular: Regular Rhythm, Normal S1, Normal S2 Vascular: Ryan Carotid Artery Bruits Abdomen: Bowel Sounds Present, Soft, Non Tender Extremities: No Cyanosis, No Clubbing, No edema Neurological: No Focal Motor or Sensory Deficit Psych/Mental Status: Appropriate 12/18/19 03:36: Troponin I < 0.015 12/18/19 06:37: Troponin I < 0.015 12/18/19 06:37: PT 12.1, INR 1.0 Rhythm: Sinus rhythm EKG: As noted above ECHO: 7?30?19 Interpretation Summary The study was technically difficult. Contrast injection was performed. Mild segmental systolic dysfunction (see wall motion). The estimated ejection fraction is 50 %. Trivial mitral valve insufficiency. Trivial tricuspid valve insufficiency. Unable to estimate RV systolic pressure/pulmonary artery pressure due to technically difficult study. Diastolic function is indeterminate. Stress Test: 11-16-2019 Stress Test Report Pharmacologic myocardial perfusion stress test. 54-year-old male with a history of previous angioplasty and stenting. Stress protocol: Resting EKG demonstrates normal sinus rhythm with a rate of 81 bpm resting blood pressure is 114/76 mmHg. 0.4 mg of regadenoson was infused per usual protocol followed by Intravenous saline flush injection continuous EKG monitoring was performed. The maximum heart rate attained was 107 bpm which was 67% of maximum predicted heart rate the maximum workload was 1 metabolic equivalent. At rest there were no ST or T wave changes noted to suggest abnormal flow reserve at peak infusion nonspecific ST-T wave changes were noted but do not suggest any evidence of ischemia. The final blood pressure was 108/68 mmHg. Myocardial perfusion protocol. 15.0 mCi of technetium 99m sestamibi was injected at rest. 0.4 mg of regadenoson was infused per usual protocol peak infusion 45.0 mCi of technetium 99m sestamibi was injected stress images were obtained stress and rest images were reconstructed and compared in the short axis vertical long horizontal long axis. Gated images were also obtained. Perfusion SPECT analysis: Review of the stress images demonstrate a medium size defect noted involving the inferior lateral wall on the stress and resting images. The above is suggestive of a previous infarct in this area. No obvious ischemia is noted. A tiny minimal mattie-infarct ischemic zone cannot be completely excluded. The septum anterior wall and basal lateral wall appear to be well perfused. Gated SPECT analysis: The gated ejection fraction is 54%. Conclusion: Pharmacologic myocardial perfusion stress test with evidence of inferior lateral infarct noted. No obvious ischemia is present. Cardiac Cath: 11-08-2017 CONCLUSIONS Previously placed stent in the left circumflex artery as well as the right coronary artery patent. RECOMMENDATIONS Medical therapy DESCRIPTION OF PROCEDURE The patient arrived to the procedure lab. The risks and benefits of the procedure as well as a full description of our services here and current unavailability of surgical backup were fully explained to the patient and/or their significant other prior to the catheterization. The Timeout was completed, verifying the correct patient and procedure. The patient's procedural site was prepped and draped in the usual fashion. Local anesthetic was given subcutaneously to right groin region with Lidocaine 2%. Using a modified Seldinger technique, arterial access was obtained via the right femoral artery, a 5Fr sheath was inserted. Left Coronary Artery selective angiography was performed in multiple views using a 5 Fr. JL4 catheter. Right Coronary Artery selective angiography was then performed in multiple views using a 5 Fr. 3DRC (Fadi) catheter. Left Ventriculography was performed in HARO projection using a 5 Fr. Pigtail catheter. LV to AO pullback pressures were then recorded.The arterial sheath was pulled and manual compression applied until hemostasis is achieved. CORONARY ANGIOGRAPHY DOMINANCE: Co- Dominant LEFT HEART ASSESSMENT Left Ventricular Ejection Fraction: by LV Gram 45 % Depressed Left Ventricular systolic function LEFT MAIN: Angiographically normal LEFT ANTERIOR DECENDING ARTERY: Mild luminal irregularities DIAGONAL 1: Proximal - Severe disease in a very small vessel SEPTAL: Moderate luminal irregularities up to 50% CIRCUMFLEX ARTERY: 50 % Stenosis MID CIRC: Previously placed stent is patent OM 2: Proximal - Mild luminal irregularities RIGHT CORONARY ARTERY: PROX RCA: Previously placed stent is patent CXR: As noted above CT Scan: As noted above Assessment/Plan 1. Chest pain The patient has chest pain. It is mixed. He has symptoms that are concerning for angina pectoris and other symptoms appear to be atypical. He is undergone remote noninvasive and invasive evaluation as well as recent no ninvasive evaluation. He has not been found to have evidence of ongoing acute coronary syndrome/PA. However he continues to present back to the emergency department on multiple occasions for recurrent chest discomfort. Thus far there is been no other definitive etiology to explain it. He was requested for transfer to [facility] based upon his ongoing cardiovascular history and symptoms for consideration for repeat diagnostic cardiac catheterization to further define his coronary anatomy as to whether or not he truly has ongoing aggressive CAD/myocardial ischemia, not showing up on his other objective studies, would require further catheter based revascularization versus no obvious change in his underlying CAD status requiring additional percutaneous or surgical based re vascularization and thus giving consideration for further noncardiac evaluation of his discomforts. He is being monitored. He is continuing medical management. Additional evaluation with diagnostic cardiac catheterization was discussed with him. The procedure and risks were discussed with him. He was agreeable to this approach. If his cardiovascular evaluation is unremarkable then he should be considered for further noncardiac evaluation of his symptoms. Based upon his [facility] CT scan raising concerns of his gastrointestinal tract he may need further gastroenterology evaluation. 2. CAD status post PCI-remote The patient does have a history of previous PCI. According to previous reports this is included PCI of the LCx/OM system and the RCA system. His most recent [facility] cardiac catheterization is as noted. He will continue to be monitored. He will continue medical therapy. He will proceed with further evaluation and care as described above. 3. Hyperlipidemia He should continue lipid-lowering therapy. 4. Hypertension He should continue antihypertensive therapy. 5. Diabetes mellitus He will need continue evaluation care per his primary care physician group. 6. GERD He apparently has a history of GERD. Again if his cardiovascular evaluation is unremarkable then based upon his noncardiac objective findings at this time he may need to be considered for further gastroenterology evaluation of his symptoms. 7. Tobacco abuse He states he stopped cigarette smoking at approximately the beginning of this year. Of note, the patient, per previous [facility] medical records, has been followed in the past by [facility] cardiology. He also has a history of noncompliance. The patient's case has been previously discussed with the [facility] emergency department physician as well as the [facility] hospitalist. This note was generated using a voice recognition system and there may be incorrect words, spelling or punctuation that were not noted when reviewing the office note prior to saving. Essential Procedure Criteria Procedure Essential: Yes Criteria Note: On 11/07/2019 the [facility] of Health ([facility]) Public Order signed by [facility] Director April Singer M.D., regarding the Management of Non- Essential Surgeries and Procedures for the purpose of preserving Personal Protective Equipment (PPE) and critical hospital capacity and resources within [place] went into effect as of 11/08/2019 at 5:00PM. According to the [facility] Public Order: This action will remain in full force and effect until the State of Emergency declared by the Governor no longer exists or the Director of the [facility] rescinds or modifies this Order.. This [facility] order stated all non-essential or elective surgeries and procedures that utilize PPE should be delayed unless there is undue risk to the current or future health of a patient. After reviewing the aforementioned [facility] Public Order and the patients clinical case, I have determined that the scheduled procedure meets the criteria to go forward. Risk to Patient if Procedure Delayed: Risk of rapidly worsening to severe symptoms - Chest Pain; CAD; PCI
[2019-12-18] MEDS: 0.9% Normal Saline 1,000 ML 15 ML IV (09:27)
--- NOTE | 2019-12-18 10:12 | CASEMGMT ---
According to [facility] website, the following are in-network tertiary facilities: [facility], [place], [facility], [facility], [facility], [facility], [facility], [place], [facility], and . Zeinab ROSE CM
--- NOTE | 2019-12-18 10:46 | CL.D_ITS ---
Patient Name: RAND PIMENTEL Study Date: 12/18/2019 Performing: Yuriy Corbin MD Ht: 72.04 inches 183 cm : 1965 Wt: 229.28 lbs 104 kg Age: 54 Gender: male BSA: 2.26 PROCEDURE(S) PERFORMED PM33-ZAO/COR/LV CLINICAL PROFILE AND INDICATIONS Indications: Worsening Angina, Suspected CAD, LV Dysfunction Heart Failure: None Stress/Imaging Date: 12/17/2019 Angina Classification Anginal Classification w/in 2 Weeks: CCS IV CAD Presentations: Other: chest pain; dyspnea; N/V/D CONCLUSIONS Elevated Left Ventricular End Diastolic Pressure Segmented LV systolic dysfunction- Mild LVEF: by LV gram 55 % [place] Multivessel CAD RECOMMENDATIONS Risk factor modification Medical therapy DESCRIPTION OF PROCEDURE The patient arrived to the procedure lab. The risks and benefits of the procedure as well as a full d escription of our services here and current unavailability of surgical backup were fully explained to the patient and/or their significant other prior to the catheterization. The Timeout was completed, verifying the correct patient and procedure. The patient's procedural site was prepped and draped in the usual fashion. Local anesthetic was given subcutaneously to right groin region with Lidocaine 2%. Using a modified Seldinger technique, arterial access was obtained via the right femoral artery, a 4 Fr sheath was inserted Left Coronary Artery selective angiography was performed in multiple views us ing a 4 Fr. JL5 catheter. Right Coronary Artery selective angiography was then performed in multiple views using a 4 Fr. 3DRC catheter. Left Ventriculography was performed in HARO projection using a 4 Fr . Pigtail catheter. LV to AO pullback pressures were then recorded.The arterial sheath was pulled and manual compression applied until hemostasis is achieved. CORONARY ANGIOGRAPHY DOMINANCE: Right Dominant LEFT HEART ASSESSMENT Left Ventricular Ejection Fraction: by LV Gram 55 % Inferior Basal Akinesis. Inferior Mid Hypokinesis Elevated Left Ventricular End Diastolic Pressure LVEDP: 17 mmHg LEFT MAIN: Mild luminal irregularities LEFT ANTERIOR DESCENDING ARTERY: Mild luminal irregularities MID LAD: Mild luminal irregularities CIRCUMFLEX ARTERY: PROX CIRC: Mild luminal irregularities, pre stent: 25 - 50 % Stenosis MID CIRC: Previously placed stent is patent, Mild luminal irregularities OM 2: Mid - Previously placed stent is patent RIGHT CORONARY ARTERY: Mild luminal irregularities PROX RCA: eccentric: 10 - 25 % Stenosis MID RCA: Previously placed stent is patent RT PDA: Mid - 25 % Stenosis AORTIC ROOT: Angiographically normal COMPLICATIONS No Complications PROCEDURE MEDICATIONS Versed 1 mg IV Oxygen: 2 L/min via nasal cannula SUMMARY OF HEMODYNAMIC DATA Time AIR REST ECG 09:53:53 AO 99/65 (82) SA 10:07:36 LV 126/-9, 18 10:15:23 LV 127/-10, 17 10:15:30 LV 106/10, 13 10:16:20 LVp 113/14, 45 10:17:38 AOp 0/-17 (0) 10:17:43 10:33:32 Signed By Yuriy Corbin MD On 12/18/2019 10:45:36 Yuriy Corbin MD
[2019-12-18] MEDS: 0.9% Normal Saline 1,000 ML 75 ML IV (11:43)
[2019-12-18 11:53] LABS: Absolute Lymphocyte Count 2.28 X10^3/uL (0.83-4.51); Basophil# 0.04 X10^3/uL; Basophil% 0.7 % (0-1); Eosinophil# 0.17 X10^3/uL; Eosinophils% 2.9 % (0-5); Hematocrit 39.1 % (40-54); Hemoglobin 13.6 g/dL (13.0-16.5); Lymphocyte # 2.28 X10^3/ul (4.0); Lymphocyte % 38.8 % (19-41); Mean Corp Hgb Conc 34.8 g/dL (32-36); Mean Corpuscular Hgb 30.5 pg (27.0-32.0); Mean Corpuscular Volume 87.7 fL (80-94); Mean Platelet Vol. 11.8 fl (6.2-12.0); Monocyte# 0.33 X10^3/uL; Monocyte% 5.6 % (0-10); NRBC Flagged by Analyzer 0 % (0-5); Neutrophil # 3.04 X10^3/uL (2.7-7.7); Neutrophil % 51.8 % (47-70); Platelet Count 143 K/mm3 (150-450); RBC Distribution Width CV 12.7 % (11.6-14.6); RBC Distribution Width SD 40.8 fl (35.1-43.9); Red Blood Count 4.46 M/mm3 (4.6-6.2); White Blood Count 5.9 K/mm3 (4.4-11.0)
[2019-12-18 11:56] LABS: Bedside Glucose 274 mg/dL (70-110)
[2019-12-18 12:06] LABS: Anion Gap 6 (5-15); BUN 17 mg/dL (7-18); BUN/Creat Ratio 24.4 RATIO (10-20); Chloride 106 mmol/L (98-107); EST Glomerular Filtration Rate 125 mL/min (>60); Est Glom Filt Rate - Afr Amer 152 mL/min (>60); Estimated Creatinine Clearance 132.41 ml/min; Glucose 294 mg/dL (74-106); Sodium Level 137 mmol/L (136-145)
--- NOTE | 2019-12-18 15:00 | RAD_ITS ---
STUDY: AIR CONTRAST UPPER GI SERIES UNKNOWN REASON FOR EXAM: Male, 54 years old. Dysphagia, coughing, recently quit smoking cigs and weed x4 months ago, abdominal cramping and bloating, pain -- 34 fluoro sec, 37 fluoro images, 26.84 mGy FLUOROSCOPY TIME (if supplied): (0:34) minutes/seconds TECHNIQUE: SINGLE CONTRAST AND AIR CONTRAST FLUOROSCOPIC IMAGES. COMPARISON: None. FINDINGS: The cervical and thoracic esophagus demonstrates normal motility without aspiration. There is circumferential wall thickening of the distal esophagus at the gastroesophageal junction. Correlation with endoscopy is recommended. No intraluminal polypoid mass is identified. The patient ingested a 12 mm tablet of barium without any difficulty. The thoracic esophagus distends well without stricture or mucosal fold thickening. No mucosal ulcerations are identified. There is no extrinsic mass effect. There are no diverticula. No hiatal hernia or gastroesophageal reflux was identified. RAD/Upper GI Dual Contrast IMPRESSION: Circumferential narrowing of the distal esophagus at the level of the gastroesophageal junction. Correlation with endoscopy is recommended. The patient ingested a 12 mm tablet of barium without any difficulty. Electronically Signed: Jose Manuel Bradford, at 15:39 EDT , Service support ,
--- NOTE | 2019-12-18 16:15 | NURSING ---
patient wanting to talk to Dr. Carlos - Dr. Carlos informed this RN that patient is now claiming he is suicidal with a plan. soil sort worker notified [facility].
[2019-12-18 16:55] LABS: Bedside Glucose 266 mg/dL (70-110)
--- NOTE | 2019-12-18 17:12 | NURSING ---
[facility] notified of patient needing evaluated
[2019-12-18] MEDS: Sertraline 50 MG Tablet PO (18:58)
[2019-12-18] MEDS: Famotidine 20 MG Tablet PO (21:29)
[2019-12-18] MEDS: Acetaminophen 325 MG Tablet 650 MG PO (21:31)
[2019-12-18 21:40] LABS: Bedside Glucose 325 mg/dL (70-110)
[2019-12-19] VITALS (7 sets, daily range): BP systolic 127–174; BP diastolic 82–117; PULSE 65–82; RESP 18; TEMP 36.4–36.8; O2SAT 93–98
[2019-12-19] MEDS: Insulin Lispro 100 UNIT/ML INSULN.PEN SC ×2 (06:45→11:11)
[2019-12-19 06:51] LABS: Bedside Glucose 280 mg/dL (70-110)
[2019-12-19] MEDS: Ondansetron 4 MG/2 ML Vial IV (08:09)
[2019-12-19] MEDS: 0.9% Saline Lock 10 ML Syringe IV (08:09)
[2019-12-19] MEDS: Clopidogrel Bisulfate 75 MG Tablet PO (09:39)
[2019-12-19] MEDS: Aspirin E.C. 81 MG Tablet PO (09:39)
[2019-12-19] MEDS: Carvedilol 6.25 MG Tablet PO (09:39)
[2019-12-19] MEDS: Lisinopril 10 MG Tablet PO (09:39)
[2019-12-19] MEDS: Sertraline 50 MG Tablet PO (09:39)
[2019-12-19] MEDS: Pantoprazole Sodium 40 MG Tablet PO (09:39)
--- NOTE | 2019-12-19 11:13 | CASEMGMT ---
This MILTON CM to room with RODRIGUEZ form at this time, explanation done-pt voices understanding, and pt signed RODRIGUEZ form at this time. Original to chart and copy to pt at this time. Pt voices no further questions/concerns/needs at this time. Pt states did received the IP vs OBS booklet at admission. [facility] KELLER
[2019-12-19 11:36] LABS: Bedside Glucose 259 mg/dL (70-110)
--- NOTE | 2019-12-19 15:34 | PCM.DC ---
- Discharge Diagnoses Current Active Problems: Current Active and Chronic Problems (Last Reviewed 12/18/19 @ 03:[address] Bimal Abdul MD) CAD in [place] artery (Chronic) Diabetes mellitus (Acute) You will use the following diet at home:: Cardiac Your food should be the consistency of: Regular Your liquids should be the consistency of: Regular/Thin Discharge Activity: Return to Normal Activity Call your doctor if your incision/area has: Increased Pain/ Swelling, Increased Redness Call your doctor if you observe: Fever of 101 or Higher, Shortness of breath, Dizziness, Fainting spells, Swelling in the ankles, Chest pain, Increased palpitations (irregular heartbeat) Allergies/Adverse Reactions: Allergies No Known Allergies Allergy (Verified 11/15/19 20:14) Medications to take at Discharge Clopidogrel Bisulfate [Plavix] 75 mg PO DAILY 06/11/16 Carvedilol 6.25 mg PO BID 01/09/18 Ranitidine [Zantac] 150 mg PO QHS 01/09/18 Loratadine 10 mg PO DAILY 02/28/18 Insulin Glargine,Hum.rec.anlog [Basaglar Kwikpen U-100] 22 unit SQ QHS 02/11/19 Lisinopril [Zestril] 10 mg PO DAILY 08/01/19 Metformin HCl 500 mg PO BID 11/15/19 Pantoprazole Sodium [Protonix] 40 mg PO DAILY 11/15/19 Aspirin [Aspirin EC] 81 mg PO DAILY 12/18/19 Icosapent Ethyl [Vascepa] 1 gm PO BID 12/18/19 Potassium Chloride 20 meq PO DAILY 12/18/19 Sertraline HCl [Zoloft] 50 mg PO DAILY #60 tab 12/19/19 The following prescriptions were given: Sertraline HCl [Zoloft] 50 mg PO DAILY #60 tab Transmission Status: Pending to [facility] Primary Care Physician: Trang He MD [Primary Care Provider] - Please follow up with your Primary Care Physician in: 1-2 weeks Test Results: Test results from this visit will be discussed in further detail at your follow-up appointment, if applicable.
--- NOTE | 2019-12-19 15:42 | PCM.DC.SUM ---
Discharge Date and Diagnosis - Problem List Patient Problems: Active and Suspected Problems (Last Reviewed 12/18/19 @ 03:[address] Bimal Abdul MD) Diabetes mellitus (Acute) Date of Admission: 12/18/19 Date of Discharge: 12/19/19 - Primary Discharge Diagnosis Active and Suspected Problems (Last Reviewed 12/18/19 @ 03:[address] Bimal Abdul MD) Diabetes mellitus (Acute) - Secondary Discharge Diagnosis Chronic Problems (Last Reviewed 12/18/19 @ 03:[address] Bimal Abdul MD) History of stroke (Chronic) Acute embolic stroke (Chronic) Stroke (Chronic) Former tobacco use (Chronic) GERD (gastroesophageal reflux disease) (Chronic) CAD in [place] artery (Chronic) Old myocardial infarction (Chronic) Nicotine dependence (Chronic) Atherosclerosis of coronary artery of [place] heart without angina pectoris (Chronic) Essential (primary) hypertension (Chronic) HLD (hyperlipidemia) (Chronic) Hospital Course and Treatment Imaging Results: Cardiac Cath: PROCEDURE(S) PERFORMED XX22-CHY/COR/LV CLINICAL PROFILE AND INDICATIONS Indications: Worsening Angina, Suspected CAD, LV Dysfunction Heart Failure: None Stress/Imaging Date: 12/17/2019 Angina Classification Anginal Classification w/in 2 Weeks: CCS IV CAD Presentations: Other: chest pain; dyspnea; N/V/D CONCLUSIONS Elevated Left Ventricular End Diastolic Pressure Segmented LV systolic dysfunction- Mild LVEF: by LV gram 55 % [place] Multivessel CAD RECOMMENDATIONS Risk factor modification Medical therapy UGI: IMPRESSION: Circumferential narrowing of the distal esophagus at the level of the gastroesophageal junction. Correlation with endoscopy is recommended. The patient ingested a 12 mm tablet of barium without any difficulty. Consults: Cardiology Operations: None Procedures: Cardiac catheterization, - - UGI Summary of Care Provided: Per HPI: The patient 54-year-old male with a significant history of CVA; former tobacco abuse; marijuana abuse; obesity; diabetes mellitus with retinopathy; CAD status post 7 coronary stents who went to [facility] emergency department for chest pain. Chest pain has been going on for about 2 weeks. Chest pain is substernal. It is a constant ache with intensity of around 5 occasionally it goes to 7 and 8. Apart from his constant achy chest pain he also have intermittent sharp stabbing pain 10 out of 10. He has been controlling his chest pain with marijuana. When it got to a point that marijuana could not help he went to [facility] emergency department. He reported his last marijuana use was 2 days ago. His chest pain radiates to his left rib and to his left forearm. Associated with his symptoms is shortness of breath. He denies any aggravating factors to the chest pain. Reportedly pain meds that he has been receiving during his frequent hospital/ED visits helps with his chest pain. Emergent department doctor discussed the case with hospitalist who recommended that emergent department doctor discuss the case with [facility] congressional aide. Hydraulic Design Engineer power generation plant operator at [facility] ([facility]) recommended that patient be accepted at [facility] and cardiology will follow in consult. Of note during the same month of November 2019 patient has been to [facility] emergency department/hospital multiple times for chest pain. Also patient was at also [facility] emergency department./hospital on 12/14/2019 to 12/15/2019. On 12/14/2019 to 12/15/2019 he was given 12 Sanders tablets and the plan was to schedule a stress test for the following week as an outpatient. Reportedly he had a fall and injured the lower ribs on the side of his chest. Reportedly the pain was absolutely reproducible with light palpation. Patient reports a recent emotional stress with he breaking up with fianc?; of an aunt; of his dog for 19 1/2 years; and currently living in a shed. Patient reports noncompliance with his medications. He has strong family history of heart disease. His father had multiple heart attack and had a bypass. His father's heart disease began in his 40s. His father and his brother from a heart attack at age 59. Hospital Course: 1. Chest pain/anxiety/marijuana [id number] male presenting with chest pain. He had a nonischemic EKG as well as 3- troponins. He was taken to the [facility], and his cardiac cath showed normal coronaries. The discussion centered around life stress and anxiety. He states that he has had a significant amount of stress lately as his almost 19-year-old dog , she was killed by a coyote and then his aunt and his ex-girlfriend kicked him out of the house and change the locks. He states that he has been living in a shed with no plumbing or electricity and in order to make him feel better his son brought him to puppies that have been destroying his stuff. He at one point stated that he was suicidal but he did not have a plan. I clarified if he had any intent and he said that if he would he would just drive off a mariam so crisis was contacted and they evaluated him however during their evaluation over the phone, he said that he gets depressed and sometimes he thinks about it but is not going to kill himself and is not going to kill anyone else. He denies any set plan and today is feeling much better after he was able to sleep and take a shower. When it was discussed that he could potentially go to an inpatient unit for evaluation he became agitated into that he just wants to go home. I discussed the case with crisis and they felt that there was no indication at this time for placement and therefore we started him on 50 of Zoloft that I told him to take for 2 weeks and if he does not notice any side effects that he can increase that to 100 mg daily. I did recommend that he follow-up with his primary care doctor for any outpatient therapy. From a cardiac standpoint he is just to continue all of his home meds, from a mental health standpoint we recommend that he continue with the medications and follow-up with an outpatient therapist. I discussed the discharge plan with him and he expressed understanding of the risks and benefits and is demanding to go home. 2. Nausea/vomiting/diarrhea/abnormal CT of the abdomen and pelvis-initially prior to this admission he had presented to [facility] for evaluation and they transferred him to our institution for cardiac evaluation. However at that institution they did a CT scan for him for his nausea and vomiting as well as vague abdominal pain. And the abdomen was unremarkable except for what they called circumferential wall thickening in the distal esophagus. He had had a CT scan at this institution on December 02 and thickening of the esophagus at that time was not visible secondary to the lack of oral/IV contrast. He is a former smoker as well as having GERD. We evaluated him with an upper GI and he did not have enough thickening to prevent passage of food or liquid and therefore the plan will be to follow-up with general surgery as an outpatient for an EGD with biopsies. I did explain this to him as well and he expressed understanding. 3. His other medical diagnoses were evaluated and his home medications were continued where appropriate Patient Problems: Active and Suspected Problems (Last Reviewed 12/18/19 @ 03:[address] Bimal Abdul MD) Diabetes mellitus (Acute) - Physical Exam Vitals/I&O's: Vital Signs Temp Pulse Resp BP Pulse Ox 97.6 F L 82 18 149/82 H 98 12/19/19 14:33 12/19/19 14:47 12/19/19 14:33 12/19/19 14:33 12/19/19 14:33 Oxygen Delivery Method Room Air Weight: 229 lb 0.964 oz Body Mass Index (BMI) 31.0 Finger Stick Blood Glucose 234 Intake and Output for Last 24 Hours 12/17/19 12/18/19 12/19/19 23:59 23:59 23:59 Intake Total 841.75 / 841.75 600 / 600 Output Total 400 / 400 Balance 441.75 / 441.75 600 / 600 General: Alert, Oriented x3, Cooperative, No apparent distress HEENT: Atraumatic, PERRLA, EOMI, Normocephalic Oral: Moist Mucosa Neck: Supple, No JVD Lungs: Clear to auscultation, Normal air movement, No rhonchi, No wheeze, No rales, Diminished Cardiovascular: Regular rate, Regular Rhythm, Normal S1, Normal S2, No murmurs Abdomen: Soft, Non Tender, Non-Distended, No Hepato-splenomegaly Extremities: No edema, Capillary Refill Less than 3 Seconds Skin: No rashes, No breakdown Neurological: Neuro grossly intact, Sensory exam intact to light touch and pain Psych/Mental Status: Normal Affect, Appropriate Laboratory Results 12/18/19 16:37: POC Glucose 266 H 12/18/19 21:21: POC Glucose 325 H 12/19/19 06:42: POC Glucose 280 H 12/19/19 11:09: POC Glucose 259 H Current Medications Acetaminophen (Tylenol) 650 mg PO Q6H PRN PRN PRN Reason: Pain Score 1-10/Temp > 100.7 F Last Admin: 12/18/19 21:31 Dose: 650 mg Documented by: Aspirin (Ecotrin) 81 mg PO DAILY [facility] Last Admin: 12/19/19 09:39 Dose: 81 mg Documented by: Atorvastatin Calcium (Lipitor) 80 mg PO QHS [facility] Last Admin: 12/18/19 21:29 Dose: 80 mg Documented by: Carvedilol (Coreg) 6.25 mg PO BID [facility] Last Admin: 12/19/19 09:39 Dose: 6.25 mg Documented by: Clopidogrel Bisulfate (Plavix) 75 mg PO DAILY [facility] Last Admin: 12/19/19 09:39 Dose: 75 mg Documented by: Dextrose (D50w Syringe) 0 gm IV X1 PRN; Protocol PRN Reason: Hypoglycemia Famotidine (Pepcid) 20 mg PO QHS [facility] Last Admin: 12/18/19 21:29 Dose: 20 mg Documented by: Glucagon () 1 mg IM .X1 PRN PRN Reason: Hypoglycemia Heparin Sodium (Beef Lung) (Heparin 500 Unit/5 Ml (100/Ml)) 500 unit IV UD PRN PRN Reason: HEPARIN FLUSH Sodium Chloride () 250 mls @ 15 mls/hr IV .[id number] PRN PRN Reason: Saline Flush Sodium Chloride () 250 mls @ 15 mls/hr IV .[id number] PRN PRN Reason: Additional IVPB Infusion Sodium Chloride () 1,000 mls @ 15 mls/hr IV .Q48H [facility] Last Infusion: 12/18/19 20:24 Dose: Infused Documented by: Insulin Human Lispro (Humalog Kwikpen (Bkc)) 0 unit SC ACHS [facility]; Protocol Last Admin: 12/19/19 11:11 Dose: 3 units Documented by: Labetalol HCl (Trandate) 5 mg IV X1 PRN PRN Reason: SBP > 160 prior to sheath pull Stop: 12/20/19 10:39 Lisinopril (Zestril) 10 mg PO DAILY [facility] Last Admin: 12/19/19 09:39 Dose: 10 mg Documented by: Ondansetron HCl (Zofran) 4 mg IV Q8H PRN PRN PRN Reason: NAUSEA/VOMITING Last Admin: 12/19/19 08:09 Dose: 4 mg Documented by: Pantoprazole Sodium (Protonix) 40 mg PO DAILY [facility] Last Admin: 12/19/19 09:39 Dose: 40 mg Documented by: Sertraline HCl (Zoloft) 50 mg PO DAILY [facility] Last Admin: 12/19/19 09:39 Dose: 50 mg Documented by: Sodium Chloride () 10 - 40 ml IV UD PRN PRN Reason: SALINE FLUSH Last Admin: 12/19/19 08:09 Dose: 10 ml Documented by: Discharge Activity: Return to Normal Activity Call your doctor if your incision/area has: Increased Pain/ Swelling, Increased Redness Call your doctor if you observe: Fever of 101 or Higher, Shortness of breath, Dizziness, Fainting spells, Swelling in the ankles, Chest pain, Increased palpitations (irregular heartbeat) Home Medications: Medications to take at Discharge Clopidogrel Bisulfate [Plavix] 75 mg PO DAILY 06/11/16 Carvedilol 6.25 mg PO BID 01/09/18 Ranitidine [Zantac] 150 mg PO QHS 01/09/18 Loratadine 10 mg PO DAILY 02/28/18 Insulin Glargine,Hum.rec.anlog [Basaglar Kwikpen U-100] 22 unit SQ QHS 02/11/19 Lisinopril [Zestril] 10 mg PO DAILY 08/01/19 Metformin HCl 500 mg PO BID 11/15/19 Pantoprazole Sodium [Protonix] 40 mg PO DAILY 11/15/19 Aspirin [Aspirin EC] 81 mg PO DAILY 12/18/19 Icosapent Ethyl [Vascepa] 1 gm PO BID 12/18/19 Potassium Chloride 20 meq PO DAILY 12/18/19 Sertraline HCl [Zoloft] 50 mg PO DAILY #60 tab 12/19/19 Following Prescrptions Were Given to Patient: Sertraline HCl [Zoloft] 50 mg PO DAILY #60 tab Transmission Status: Received by [facility] Primary Care Physician: Trang He MD [Primary Care Provider] - Please follow up with your Primary Care Physician in: 1-2 weeks Please Follow Up With: Tye Torres MD When: 2-4 weeks Disposition: Home Minutes spent on discharge:: 35 Patient Condition:: Stable Medical Necessity - Tobacco Use Smoking Status: Former smoker Meaningful Use Info Meaningful Use Diagnoses (Choose all that apply): None applicable OBSV E&M: 50849 Observation care discharge
== END 2019-12-19 15:34 | disposition home or self-care (01) ==
PROVIDERS: Admitting Provider Hospitalist; PCP Internal Medicine; Referring Provider Hospitalist; Visit Provider Family Medicine
DX: R07.89 Other chest pain (principal); E11.319 Type 2 diabetes mellitus with unspecified diabetic retinopathy without macular edema; R06.00 Dyspnea, unspecified; I25.10 Atherosclerotic heart disease of native coronary artery without angina pectoris; F12.10 Cannabis abuse, uncomplicated; E66.9 Obesity, unspecified; K21.9 Gastro-esophageal reflux disease without esophagitis; I10 Essential (primary) hypertension; I25.2 Old myocardial infarction; E78.5 Hyperlipidemia, unspecified; Z79.899 Other long term (current) drug therapy; Z87.891 Personal history of nicotine dependence; Z95.5 Presence of coronary angioplasty implant and graft; Z68.31 Body mass index [BMI] 31.0-31.9, adult; Z79.02 Long term (current) use of antithrombotics/antiplatelets; Z79.4 Long term (current) use of insulin; Z79.82 Long term (current) use of aspirin; Z91.14 Patient's other noncompliance with medication regimen
CPT/HCPCS: 36415; 74246; 80048; 82962; 84484; 85025; 85610; 93005; 93458; 96361; 96374; 96375; 96376; 97802; 99152; 99153; 99218; J7030; A4216; C1769; C1894; G0378; G0379; J2405; Q9967

== ENCOUNTER 2020-01-13 22:19 | Emergency (ER) | payer MEDICARE, MEDICAID, SELFPAY ==
[2019-12-18 03:01] VITALS: BMI 31.0
[2020-01-13 22:20] VITALS: BP 101/54; PULSE 87; RESP 19; TEMP 36.3; O2SAT 97; BMI 29.0
[2020-01-13 22:27] VITALS: BP 102/69; PULSE 88; RESP 20; TEMP 36.7; O2SAT 95
--- NOTE | 2020-01-13 22:33 | EKG12_ITS ---
Test Reason : SOB Blood Pressure : / mmHG Vent. Rate : 082 BPM Atrial Rate : 082 BPM P-R Int : 154 ms QRS Dur : 092 ms QT Int : 372 ms P-R-T Axes : 041 118 093 degrees QTc Int : 434 ms Normal sinus rhythm Inferior-posterior infarct , age undetermined Abnormal ECG Confirmed by EDUARDO GIBSON, DEVYN ([id number]), editor in chief WILLEM IGNACIO ([id number]) on 01/16/2020 3:15:46 PM Referred By: PREMA Confirmed By:DEVYN CLARK MD
--- NOTE | 2020-01-13 22:36 | ED.DCSUM_ITS ---
- ER Visit Summary Date of Service: 01/13/20 Chief Complaint: Nausea, vomiting, diarrhea, chest discomfort and dyspnea. History of Present Illness: The patient is a 54 M emergency department. Currently homeless and living in his car. Extensive past medical history of prior stroke, prior NV with CAD and 7 stents, reflux, insulin-dependent diabetes, hypertension high cholesterol. Patient's had a prior appendectomy. He has had a recent cardiac catheterization within the last month or so which was unremarkable. Patient states since yesterday he has had nausea, vomiting and diarrhea. Also chest pain. Also a cough. He denies fever. He denies abdominal pain. Physical Examination: Middle-aged male no acute distress vital signs are stable afebrile. Pulse ox 97% on room air. H EENT exam atraumatic. Pupils round reactive light. No facial droop. Mildly dry mucous membranes. No posterior erythema. No trouble swallowing or breathing. Neck nontender. No lymphadenopathy. Lungs clear to auscultation bilaterally. Equal symmetrical. Heart regular rate and rhythm rate about 90 no murmur. Chest wall nontender. Abdomen soft nontender. Normal bowel sounds. No peritoneal signs. No signs of obstruction. No tenderness. Patient is moving all 4 extremities. Calves are nontender without edema or cords. Neurologically is awake and alert. He is moving all 4 extremities. Following commands and answering questions. Test Results: Normal. Chemistries unremarkable BUN 29 creatinine of 1 consistent with mild dehydration. Normal gap. Glucose elevated to 89 patient is known diabetic. Troponin normal. Chest x-ray portable 1 view read by myself shows no acute abnormality. Normal cardiac silhouette mediastinum. Lungs are clear. EKG shows a normal sinus rhythm with a rate of 82 with no acute NV or ischemia. No acute changes. Emergency Department Course and Treatment: Undergo a cardiac work-up including screening labs and a chest x-ray. Clinically this does not appear to be cardiac. Goes along more with a viral syndrome. He will be treated with IV fluids and IV Zofran. Treatment Plan: Fluids and rest. Zofran as needed for nausea. Follow-up with his doctor. Return if worse. Repeat exam patient is doing well at 11:31 PM. His nausea is improved after 2 doses of IV Zofran. He feels comfortable being discharged home. Abdomen is benign. We discussed his home-going instructions. Will be discharged with a prescription for Zofran. Disposition: dc Impression: Viral syndrome. Nausea, vomiting and diarrhea. Atypical chest pain. History of CAD with 7 stents. History of diabetes. This note was generated with [employer] dictation software. It may contain incorrect words, spelling, and punctuation that were not noted in review of the chart prior to signing ED Disposition - Plan for ED Patient: Disposition: Home or Assisted Living Instructions: ED Viral Syndrome Prescriptions: Ondansetron [Zofran Odt] 4 mg PO Q8H PRN PRN #7 tab PRN Reason: Nausea Prescription Printed Referrals: Trang He MD [Primary Care Provider] - 3-5 Days if not improving Additional Instructions: Plenty of fluids and rest. Zofran as needed for nausea. Follow-up with your doctor if not improving. Return if feeling worse.
--- NOTE | 2020-01-13 22:40 | ED.DEP ---
ED Disposition - Plan for ED Patient: Disposition: Home or Assisted Living Instructions: ED Viral Syndrome Prescriptions: Ondansetron [Zofran Odt] 4 mg PO Q8H PRN PRN #7 tablet PRN Reason: Nausea Referrals: Trang He MD [Primary Care Provider] - 3-5 Days if not improving Additional Instructions: Plenty of fluids and rest. Zofran as needed for nausea. Follow-up with your doctor if not improving. Return if feeling worse.
[2020-01-13] MEDS: 0.9% Normal Saline 1,000 ML 1000 ML IV (22:55)
[2020-01-13] MEDS: Ondansetron 4 MG/2 ML Vial IV ×2 (22:55→23:26)
[2020-01-13 23:08] LABS: Absolute Lymphocyte Count 3.02 X10^3/uL (0.83-4.51); Absolute Neutrophil Count 4.3 X10^3/uL (2.0-7.7); Basophil# 0.02 X10^3/uL; Basophil% 0.2 % (0-1); Eosinophil# 0.15 X10^3/uL; Eosinophils% 1.8 % (0-5); Hematocrit 41.2 % (40-54); Hemoglobin 14.1 g/dL (13.0-16.5); Lymphocyte # 3.02 X10^3/ul (4.0); Lymphocyte % 37.2 % (19-41); Mean Corp Hgb Conc 34.2 g/dL (32-36); Mean Corpuscular Hgb 30.5 pg (27.0-32.0); Monocyte# 0.66 X10^3/uL; Monocyte% 8.1 % (0-10); NRBC Flagged by Analyzer 0 % (0-5); Neutrophil # 4.25 X10^3/uL (2.7-7.7); Neutrophil % 52.5 % (47-70); Platelet Count 169 K/mm3 (150-450); RBC Distribution Width CV 12.6 % (11.6-14.6); RBC Distribution Width SD 40.8 fl (35.1-43.9); Red Blood Count 4.63 M/mm3 (4.6-6.2); White Blood Count 8.1 K/mm3 (4.4-11.0)
--- NOTE | 2020-01-13 23:15 | RAD_ITS ---
STUDY: X-RAY CHEST REASON FOR EXAM: Male, 54 years old. CHEST PAIN, SOB TECHNIQUE: Single AP portable view of the chest. COMPARISON: 12/10/2019. FINDINGS: The lungs are clear and expanded. There is no demonstrated pleural abnormality. Normal size heart. Normal mediastinum and sang. Normal visualized pulmonary arteries. Normal visualized aortic arch and descending thoracic aorta. Normal visualized thoracic spine. Normal visualized ribs, clavicles, and shoulders. There is no demonstrated abnormality of the visualized soft tissue structures of the upper abdomen. RAD/Chest 1 View (Portable) IMPRESSION: Normal x-ray examination of the chest. Electronically Signed: Shahida Thacker MD at 23:42 EDT Tel , Service support ,
[2020-01-13 23:27] VITALS: BP 96/50; PULSE 85; RESP 20; TEMP 36.6; O2SAT 96
[2020-01-13 23:27] LABS: Anion Gap 7 (5-15); BUN 29 mg/dL (7-18); Calcium,Total 10.1 mg/dL (8.5-10.1); Chloride 102 mmol/L (98-107); EST Glomerular Filtration Rate 83 mL/min (>60); Est Glom Filt Rate - Afr Amer 100 mL/min (>60); Estimated Creatinine Clearance 92.69 ml/min; Glucose 289 mg/dL (74-106); Potassium 3.7 mmol/L (3.5-5.1); Sodium Level 138 mmol/L (136-145)
[2020-01-13 23:44] VITALS: BP 111/68
== END 2020-01-13 23:47 | disposition home or self-care (01) ==
LOC: ED 23:46
PROVIDERS: Emergency Provider Emergency Medicine; PCP Internal Medicine
DX: B34.9 Viral infection, unspecified (principal); I25.10 Atherosclerotic heart disease of native coronary artery without angina pectoris; K21.9 Gastro-esophageal reflux disease without esophagitis; E11.9 Type 2 diabetes mellitus without complications; Z59.0 Homelessness; Z79.84 Long term (current) use of oral hypoglycemic drugs
CPT/HCPCS: 71045; 80048; 84484; 85025; 93005; 96361; 96374; 96375; 99284; J7030; J2405